=== PATIENT | female | born 1950 | race Caucasian/White ===

== ENCOUNTER 2019-04-12 06:34 | Observation (INO) | payer OTHER, SELFPAY ==
[2019-04-12] VITALS (22 sets, daily range): BP systolic 102–165; BP diastolic 53–92; PULSE 80–108; RESP 16–24; TEMP 35.7–36.8; O2SAT 93–98; BMI 22.0
--- NOTE | ~2019-04-12 | XR_ITS ---
EXAMINATION: XR chest 1V portable INDICATION: Shortness of breath TECHNIQUE: Portable AP chest at 0733 hours COMPARISON: 10/10/2018 FINDINGS: The lungs are hyperinflated. There are airspace opacities of the right lung base. No pleura l effusion or pneumothorax is identified. The heart size is normal. There is calcified atherosclerosi s. IMPRESSION: 1. Right basilar airspace opacities which may reflect atelectasis or pneumonia. Recommend followup ra diographs in 10-14 days after appropriate therapy to evaluate for improvement/resolution. Reviewed, dictated and finalized at location A. TREAT INSPECTOR IMPRESSION: 1. Right basilar airspace opacities which may reflect atelectasis or pneumonia. Recommend followup radiographs in 10-14 days after appropriate therapy to eval uate for improvement/resolution.
--- NOTE | ~2019-04-12 | XR_ITS ---
EXAMINATION: XR chest 2V DATE: 04/13/2019 08:46 INDICATION: Pneumonia TECHNIQUE: Frontal and lateral views of the chest are obtained COMPARISON: 04/12/2019 FINDINGS: Right basilar airspace opacity persists but has improved. The lungs are hyperinflated. Ther e is no pleural effusion or pneumothorax. The cardiomediastinal silhouette is normal. There is modera te thoracic spondylosis. Calcified mediastinal lymph nodes are consistent with old granulomatous dise ase. IMPRESSION: 1. Persistent but improved right basilar airspace opacity, consistent with resolving atelectasis or p neumonia. Reviewed, dictated and finalized at location A. NE FUEL DOCK ATTENDANT IMPRESSION: 1. Persistent but improved right basilar airspace opacity, consistent with reso lving atelectasis or pneumonia.
--- NOTE | 2019-04-12 07:18 | ECG_ITS ---
Measurements Intervals [place] Rate: 82 P: [place]: 0 QRS: 74 QRSD: 78 T: 67 QT: 347 QTc: 407 Interpretive Statements SINUS RHYTHM FREQUENT ATRIAL PREMATURE COMPLEXES INCOMPLETE RIGHT BUNDLE BRANCH BLOCK DELAYED PRECORDIAL R/S TRANSITION BASELINE ARTIFACT- I, II, III, AVR, AVL, AVF ABNORMAL ECG Electronically Signed On 04-12-2019 7:59:30 PROCESS MANAGER by Chico Roman D.O.
[2019-04-12] MEDS: LEVALBUTEROL NEB 1.25 MG/3 ML INHALATION (07:30)
[2019-04-12 07:51] LABS: Basophils Absolute Auto 0.03 K/mm3 (0.00-0.10); Basophils Percent Auto 0.3 % (0.0-1.0); Eosinophils Absolute Auto 0.12 K/mm3 (0.02-0.50); Eosinophils Percent Auto 1.2 % (1.0-6.0); Hematocrit 40.1 % (35.0-42.0); Hemoglobin 14.2 g/dL (11.7-13.8); Immature Granulocyte Absolute 0.04 K/mm3 (0.00-0.00); Immature Granulocyte Percent A 0.4 % (0.0-0.0); Lymphocytes Absolute Auto 1.97 K/mm3 (1.10-4.50); Lymphocytes Percent Auto 19.9 % (18.0-42.0); Mean Corpuscular HGB Conc 35.4 g/dL (32.0-36.0); Mean Corpuscular Hemoglobin 34.3 pg (27.0-31.0); Mean Corpuscular Volume 96.9 fL (78.0-102.0); Mean Platelet Volume 9.2 fl (9.2-11.8); Monocytes Absolute Auto 0.91 K/mm3 (0.10-0.90); Monocytes Percent Auto 9.2 % (2.0-11.0); Neutrophils Absolute Auto 6.8 K/mm3 (1.7-7.2); Platelet Count Result 204 K/mm3 (150-420); Red Blood Count 4.14 M/mm3 (4.20-5.40); White Blood Count 9.9 K/mm3 (4.8-10.8)
[2019-04-12] MEDS: methylPREDNISolone SOD SUCC 125 MG VIAL IV PUSH (08:05)
[2019-04-12 08:09] LABS: Influenza Control Valid (Valid)
[2019-04-12 08:14] LABS: D Dimer 0.33 mg/L (0.19-0.50)
[2019-04-12 08:15] LABS: Alanine Aminotransferase 17 U/L (14-59); Albumin Level 3.9 g/dL (3.4-5.0); Alkaline Phosphatase 76 U/L (46-116); Anion Gap 14.7 mmol/L (7-16); Aspartate Amino Transferase 16 U/L (15-37); Bilirubin,Total 0.3 mg/dL (0.00-1.00); Blood Urea Nitrogen 10 mg/dL (7-18); Carbon Dioxide 27 mmol/L (21-32); Chloride 97 mmol/L (98-108); Estimated CRCL calculation 70 ml/min; Estimated Glomerular Filt Rate > 60; Glucose 81 mg/dL (70-99); Osmolality Calculated 278 mOsm/kg (285-295); Potassium 3.7 mmol/L (3.5-5.1); Sodium 135 mmol/L (136-145)
[2019-04-12 08:17] LABS: Troponin I < 0.02 ng/mL (0.00-0.056)
--- NOTE | 2019-04-12 08:21 | ED.SOB ---
HPI - SOB/Dyspnea General Chief Complaint: Shortness of Breath/Dyspnea Stated Complaint: shortness of breath Time Seen by Provider: 04/12/19 07:16 Related Data Home Medications Medication Instructions Recorded Confirmed albuterol sulfate 2.5 mg INHALATION DAILY 04/12/19 04/12/19 fluticasone propionate 1 spray INTRANASAL PRN 04/12/19 04/12/19 [id number] 1 inh INHALATION DAILY 04/12/19 04/12/19 [Trelegy Ellipta] hydrochlorothiazide 12.5 mg PO DAILY 04/12/19 04/12/19 ipratropium bromide 1 ml INHALATION PRN 04/12/19 04/12/19 losartan 100 mg PO DAILY 04/12/19 04/12/19 Allergies Allergy/AdvReac Type Severity Reaction Status Date / Time Iodine and Iodide Containing AdvReac Unknown Verified 04/12/19 07:38 Produc Review of Systems Review of Systems: All systems reviewed & are unremarkable except as noted in HPI and below PMFSH Past Medical History Medical History COPD (chronic obstructive pulmonary disease) Exam Const: General: alert and ill appearing Nutritional Appearance: well nourished Orientation/consciousness: oriented x3 HENMT: Head: normal to inspection Eyes: Pupils: PERRL Neck: Neck: normal visual inspection Chest: Chest palpation & inspection: normal inspection of the chest and abnormal inspection of the chest Resp: Effort & Inspection: labored and tachypneic Auscultation: rhonchi, wheezes, breath sounds absent and diminished lung sounds Cardio: Rhythm: abnormal rhythm GI: GI Palp: Yes soft : General: Yes no CVA tenderness Back/Spine/Pelvis: Back: no CVA tenderness Skin: General skin exam: normal color Rashes: no rashes Neuro: General: oriented x3 Psych: Mental Status: mental status grossly normal Course Vital Signs Vital signs: Vital Signs Temperature 36.4 C L 04/12/19 07:05 Pulse Rate 84 04/12/19 07:05 Respiratory Rate 24 H 04/12/19 07:05 Blood Pressure 165/87 H 04/12/19 07:05 Pulse Oximetry 96 04/12/19 07:05 Temperature 36.4 C L 04/12/19 07:05 Pulse Rate 89 04/12/19 08:18 Respiratory Rate 20 04/12/19 08:18 Blood Pressure 150/84 H 04/12/19 08:18 Pulse Oximetry 98 04/12/19 08:18 MDM - SOB/Dyspnea Lab Data Attestation: I reviewed the patient's lab results. Result diagrams: 04/12/19 07:43 04/12/19 07:43 Labs: Lab Results 04/12/19 04/12/19 04/12/19 Range/Units 07:43 07:43 07:44 WBC 9.9 (4.8-10.8) K/mm3 RBC 4.14 L (4.20-5.40) M/mm3 Hgb 14.2 H (11.7-13.8) g/dL Hct 40.1 (35.0-42.0) % MCV 96.9 (78.0-102.0) fL MCH 34.3 H (27.0-31.0) pg MCHC 35.4 (32.0-36.0) g/dL RDW 12.0 (11.6-14.4) % Plt Count 204 (150-420) K/mm3 MPV 9.2 (9.2-11.8) fl Immature Gran % (Auto) 0.4 H (0.0-0.0) % Neut % (Auto) 69.0 (50.0-70.0) % Lymph % (Auto) 19.9 (18.0-42.0) % Day % (Auto) 9.2 (2.0-11.0) % Eos % (Auto) 1.2 (1.0-6.0) % Baso % (Auto) 0.3 (0.0-1.0) % Lymph # (Auto) 1.97 (1.10-4.50) K/mm3 Day # (Auto) 0.91 H (0.10-0.90) K/mm3 Eos # (Auto) 0.12 (0.02-0.50) K/mm3 Baso # (Auto) 0.03 (0.00-0.10) K/mm3 Abs Immat Gran (auto) 0.04 H (0.00-0.00) K/mm3 Absolute Neuts (auto) 6.8 (1.7-7.2) K/mm3 Absolute Nucleated RBC 0.00 (0.00-0.00) K/mm3 Nucleated RBC % 0.0 (0-0.0) % D-Dimer (0.19-0.50) mg/L Sodium 135 L (136-145) mmol/L Potassium 3.7 (3.5-5.1) mmol/L Chloride 97 L (98-108) mmol/L Carbon Dioxide 27 (21-32) mmol/L Anion Gap 14.7 (7-16) mmol/L BUN 10 (7-18) mg/dL Creatinine 0.59 (0.55-1.02) mg/dL Estim Creat Clear Calc 70 ml/min Estimated GFR > 60 (59 - ) Glucose 81 (70-99) mg/dL Calculated Osmolality 278 L (285-295) mOsm/kg Calcium 9.0 (8.5-10.1) mg/dL Total Bilirubin 0.3 (0.00-1.00) mg/dL AST 16 (15-37) U/L ALT 17 (14-59) U/L Alkaline Phosphatase 7
[2019-04-12 09:21] LABS: Base Excess ABG -0.2 mmol/L (0-2); HCO3 ABG 24.4 mmol/L (23-29); Oxygen Content ABG 19.1 %vol (16.0-22.0); Oxygen Saturation ABG 94.4 % (95-97); Oxyhemoglobin 89.3 % (94-100); PCO2 ABG 39.6 mmHg (35-45); PO2 ABG 70.6 mmHg (75-85); Total Hemoglobin 15.2 g/dL; pH ABG 7.41 (7.35-7.45)
[2019-04-12 09:22] LABS: Device NASAL CANNULA; Modified Allen's Test Pass; Site Drawn LEFT RADIAL
--- NOTE | 2019-04-12 09:27 | PC.NURSE ---
Here for observation admit for copd and pneumonia, harsh loose non productive cough, no fevers, no emesis, pain with cough right lung, no distress, oxygen from ER continues at 2L NC
[2019-04-12] MEDS: hydroCHLOROthiazide 25 MG TABLET 12.5 MG PO (09:38)
[2019-04-12] MEDS: LOSARTAN POTASSIUM 50 MG TABLET 100 MG PO (09:38)
--- NOTE | 2019-04-12 09:59 | PC.NURSE ---
Pateint report that shortness of breath is normal/baseline for her, states pain in lung from cough is not normal,
--- NOTE | 2019-04-12 10:13 | PM.IMHP ---
H&P: HPI History of Present Illness Chief complaint: shortness of breath Narrative: Stefanie Raymundo is a 69 year old female That presented to the ED Chief complaint shortness breath and right shoulder pain. patient past medical history COPD and HTN. she is currently a smoker and smokes 1 pack a day. According to patient 3 days ago while at work she started having right shoulder pain and assumed she has sprained a muscle. Patient noted that she continue working with pain in her right shoulder with movement . She did use muscle relief lotion to ease her pain. Yesterday she went to work and was unable to work. patient does have a history of pneumonia and noted that she knewthat she had pneumonia and proceeded to the ED. She continues to complain of a productive cough with clear secretions, chest congestion, shortness of breath that worsens on exertion. According to the patient while ambulating to the restroom she became extremely short of breath while on 2 L nasal cannula . Her primary care physician is Dr. Blanco in her sterile processing tech is Dr. Muñoz. She noted that she has an appoint with Dr. Muñoz next month for a repeat PFT for her COPD. She did note that she had to have more breathing treatments then normal with no improvement the last 3 days. while patient was in the ED she received Solu-Medrol, nebulizer treatment, and antibiotics. when she arrived to the ED her sats were in the 90, after treatment her sats did improve on 2 L nasal at 97%. A chest x-ray was complete and it indicated Right basilar airspace opacities which may reflect atelectasis or pneumonia. her troponins and D-dimer were negative, white count within normal limits ekg indicated SINUS RHYTHM FREQUENT ATRIAL PREMATURE COMPLEXES INCOMPLETE RIGHT BUNDLE BRANCH BLOCK. Patient is being admitted for COPD exacerbation and pneumonia. She will continue to receive antibiotics, steroids, breathing treatment and remain on telemetry. Patient denies CP, palpitation, extremity numbness, lightheadness, dizziness, constipation, diarrhea, or chills or fever. Review of Systems Constitutional: Constitutional: Denies chills, Denies fatigue, Denies fever(s) and Reports weakness Cardiovascular: Cardiovascular: Denies chest pain, Denies chest pain at rest, Denies chest pain with activity, Denies syncope and Reports other ( right shoulder pain) Respiratory: Respiratory: Reports chest congestion, Reports cough ( productive with white sputum) and Reports dyspnea Gastrointestinal: Gastrointestinal: Reports no additional gastrointestinal complaints, Denies dyspepsia, Denies diarrhea and Denies nausea Genitourinary: Genitourinary: Denies frequent urination and Denies urinary incontinence Musculoskeletal: Musculoskeletal: Reports other ( right shoulder pain) Neurologic: Reports system reviewed and no additional complaints, except as documented [facility] Family History Family History (Updated 04/12/19 @ 09:33 by Jennifer Petersen RN) Father Colon cancer Social History Social History Smoking packs per day: 1 Smoking cigarettes per day: 20.0 Smoking status: Current every day smoker Tobacco type: cigarettes Alcohol intake: current Drinks per week: 15 Substance use: never Gender identity (if verbalized by the patient): Female Spiritual care concerns: No Agree to blood products: Yes Meds Home Medications and Allergies Home Medications Medication Instructions Recorded Confirmed Type albuterol sulfate 2.5 mg INHALATION DAILY 04/12/19 04/12/19 History fluticasone propionate 1 spray INTRANASAL PRN 04/12/19 04/12/19 History uyfcnsfyrzq-abgzcbmwc-ejxcnwyz 1 inh INHALATION DAILY 04/12/19 04/12/19 History [Trelegy Ellipta] hydrochlorothiazide 12.5 mg PO DAILY 04/12/19 04/12/19 History ipratropium bromide 1 ml INHALATION PRN 04/12/19 04/12/19 History losartan 100 mg PO DAILY 04/12/19 04/12/19 History
[2019-04-12] MEDS: BENZONATATE 100 MG CAPSULE 200 MG PO ×2 (10:42→14:53)
--- NOTE | 2019-04-12 11:30 | PC.NURSE ---
Resting with HOB elevated no SOB at thsi time, no pain when at rest, only when coughing,
[2019-04-12] MEDS: ENOXAPARIN 40 MG/0.4 ML SYRINGE SUB-Q (11:53)
--- NOTE | 2019-04-12 12:15 | PC.NURSE ---
Eating lunch, no concerns voiced, continues to have pain with cough and feels better with oxygen on, doesn't wear oxygen at home
[2019-04-12] MEDS: IPRATROPIUM 0.5 MG/ALBUTEROL SULFATE 2.5 MG AMPUL.NEB 3 ML INHALATION ×2 (12:18→18:10)
--- NOTE | 2019-04-12 14:07 | PC.NURSE ---
Sleeping, no distress, oxygen on at 2L NC at this time, telemetry sinus arrythmia
[2019-04-12] MEDS: methylPREDNISolone SOD SUCC 125 MG VIAL 80 MG IV PUSH ×2 (14:53→21:08)
--- NOTE | 2019-04-12 15:30 | PC.NURSE ---
States feeling much better;Feels more rested; Oxygen in place. Skin pink, respirations easy, unlabored, regular.
--- NOTE | 2019-04-12 15:50 | PC.NURSE ---
States needs chips and soda to decrease need for cigarettes. Notified Emma in dietary of request for chips. Given Pepsi and cup of ice.
--- NOTE | 2019-04-12 16:00 | PC.NURSE ---
Patient lying in bed with Oxygen at 2L per n.c. in place. No shortness of breath at rest. Conversational dyspnea noted.
--- NOTE | 2019-04-12 19:23 | PC.NURSE ---
Patient ambulating in room without oxygen in place: Heart Rate up to 120s, then down to 104 after sitting on bed for 1-2 minutes. R. 20; Pox: 93% on room air. Oxygen at 1 L per n.c. resumed.
[2019-04-12] MEDS: ACETAMINOPHEN 500 MG TABLET 1000 MG PO (21:06)
--- NOTE | 2019-04-12 21:08 | PC.NURSE ---
Benadryl 25mg po given for c/o insomnia; Tylenol 1000mg po given for c/o headache. See pain assessment. Complains pain to right chest wall just under right shoulder blade, states much better than when I came in but is coming back. Exertional dyspnea continues. Mild conversational dyspnea present with normal conversation.
--- NOTE | 2019-04-12 21:21 | PC.NURSE ---
Emelia Baird, network support specialist nurse informed of need to change Tessalon Perles to Q 8 hours per patient request.
--- NOTE | 2019-04-12 23:44 | PC.NURSE ---
Patient resting in bed with HOB flat, positioning consistent with baseline. O2 @ 1L per nasal cannula
[2019-04-13] VITALS (8 sets, daily range): BP systolic 128–137; BP diastolic 69–76; PULSE 84–106; RESP 16–20; TEMP 35.8–36.6; O2SAT 91–98
[2019-04-13] MEDS: IPRATROPIUM 0.5 MG/ALBUTEROL SULFATE 2.5 MG AMPUL.NEB 3 ML INHALATION ×2 (00:30→05:36)
--- NOTE | 2019-04-13 01:40 | PC.NURSE ---
Patient in bed resting quietly with O2 @1L per nasal cannula. Sinus rhythm per quality assurance monitor chassis
--- NOTE | 2019-04-13 02:40 | PC.NURSE ---
Patient resting quietly in bed. Sinus rhythm per court recording monitor. O2 @1L per nasla cannula.
--- NOTE | 2019-04-13 03:40 | PC.NURSE ---
Patient in bed resting quietly, O2 @ 1L per nasal cannula. Dry cough persists. Sinus rhythm per telemetry
--- NOTE | 2019-04-13 04:40 | PC.NURSE ---
Patient in bed resting comfortably, O2 @ 1L per nasal cannula. Afebrile. Sinus rhythm per ekg monitor tech.
[2019-04-13 05:08] LABS: Hematocrit 39.6 % (35.0-42.0); Mean Corpuscular HGB Conc 35.4 g/dL (32.0-36.0); Mean Corpuscular Hemoglobin 34.3 pg (27.0-31.0); Mean Corpuscular Volume 97.1 fL (78.0-102.0); Mean Platelet Volume 9.2 fl (9.2-11.8); Platelet Count Result 204 K/mm3 (150-420); Red Blood Count 4.08 M/mm3 (4.20-5.40); Red Cell Distribution Width 11.9 % (11.6-14.4); White Blood Count 12.7 K/mm3 (4.8-10.8)
[2019-04-13 05:28] LABS: Alanine Aminotransferase 16 U/L (14-59); Albumin Level 3.5 g/dL (3.4-5.0); Alkaline Phosphatase 72 U/L (46-116); Anion Gap 10.8 mmol/L (7-16); Aspartate Amino Transferase 13 U/L (15-37); Bilirubin,Total 0.3 mg/dL (0.00-1.00); Blood Urea Nitrogen 12 mg/dL (7-18); Calcium 9.1 mg/dL (8.5-10.1); Carbon Dioxide 30 mmol/L (21-32); Chloride 97 mmol/L (98-108); Estimated CRCL calculation 62 ml/min; Estimated Glomerular Filt Rate > 60; Glucose 190 mg/dL (70-99); Osmolality Calculated 282 mOsm/kg (285-295); Potassium 3.8 mmol/L (3.5-5.1); Sodium 134 mmol/L (136-145); Total Protein 6.7 g/dL (6.4-8.2)
--- NOTE | 2019-04-13 05:40 | PC.NURSE ---
Patient sitting up in bed, O2 @ 1L per nasal cannula. Denies SOB at rest.
[2019-04-13] MEDS: methylPREDNISolone SOD SUCC 125 MG VIAL 80 MG IV PUSH (05:52)
--- NOTE | 2019-04-13 06:40 | PC.NURSE ---
Patient sitting up in bed, remains on O2 @ 1L per nasal cannula. Sinus rhythm per cardiac monitor technician.
--- NOTE | 2019-04-13 07:10 | PC.NURSE ---
Oxygen removed at this time, current saturation 94%
--- NOTE | 2019-04-13 07:26 | PC.NURSE ---
Oxygen remains off at this time, saturation noted to be 91-92% on room air, no feeling of distress, no evidence of distress noted
--- NOTE | 2019-04-13 08:33 | PC.NURSE ---
To imaging for CXR via wheel chair
--- NOTE | 2019-04-13 08:45 | PC.NURSE ---
Returned from imaging via wheel chair, cardio here to do 6 minute walk
[2019-04-13] MEDS: hydroCHLOROthiazide 25 MG TABLET 12.5 MG PO (09:05)
[2019-04-13] MEDS: LOSARTAN POTASSIUM 50 MG TABLET 100 MG PO (09:06)
[2019-04-13] MEDS: BENZONATATE 100 MG CAPSULE 200 MG PO (09:06)
--- NOTE | 2019-04-13 09:06 | HOMEO2EVAL ---
Home Oxygen Evaluation RC: Home Oxygen (O2) Evaluation Start: 04/12/19 11:29 Freq: ONCE Status: Active Protocol: RPE Activity Type Activity Date Activity User E-Sign Co-Sign Detail Recorded Client Recorded Date Recorded By Document 04/13/19 08:50 SJCorrine [id number] 04/13/19 09:06 SJB Document 04/13/19 08:53 SJB [id number] 04/13/19 09:06 SJB 04/13/19 04/13/19 08:50 08:53 Home O2 Evaluation Test Phase Resting Exercise Oxygen Delivery Room Air Pulse Rate (60-100 beats/min) 91 Activity Tolerance Excellent Rating of Perceived Dyspnea (PD) +1 Mild, Noticeable to the Participant but Not to an Observer Rate of Perceived Exertion (PE) 9 Very light Ambulation Distance (feet) 850 Home Oxygen Evaluation Comments Pt walked approx 800 ft on room air. Osman very walk, talking the whole time and using PLB. Sp02s stayed WNL of 94 to 91 % and heart rate ranging from 87 to 113. Treatment Charges O2 Evaluation
--- NOTE | 2019-04-13 09:09 | HOMEO2EVAL ---
Home Oxygen Evaluation RC: Home Oxygen (O2) Evaluation Start: 04/12/19 11:29 Freq: ONCE Status: Active Protocol: RPE Activity Type Activity Date Activity User E-Sign Co-Sign Detail Recorded Client Recorded Date Recorded By Document 04/13/19 08:50 SJCorrine [id number] 04/13/19 09:06 SJB Document 04/13/19 08:53 SJB [id number] 04/13/19 09:06 SJB 04/13/19 04/13/19 08:50 08:53 Home O2 Evaluation Test Phase Resting Exercise Oxygen Delivery Room Air Room Air Oxygen Flow Rate (L/min) 0 Pulse Rate (60-100 beats/min) 91 Activity Tolerance Excellent Rating of Perceived Dyspnea (PD) +1 Mild, Noticeable to the Participant but Not to an Observer Rate of Perceived Exertion (PE) 9 Very light Ambulation Distance (feet) 850 Home Oxygen Evaluation Comments Pt walked approx 800 ft on room air. Osman very walk, talking the whole time and using PLB. Sp02s stayed WNL of 94 to 91 % and heart rate ranging from 87 to 113. Treatment Charges O2 Evaluation
--- NOTE | 2019-04-13 10:20 | PM.DS ---
DS: Diagnosis Admitting Diagnosis Admitting Diagnosis: Pneumonia, unspecified organism Discharge Diagnosis (1) Community acquired pneumonia: Qualifiers: Laterality: right Lung location: lower lobe of lung Qualified Code(s): J18.9 - Pneumonia, unspecified organism Code(s): J18.9 - Pneumonia, unspecified organism Status: Acute Assessment and Plan: -chest x-ray indicate . Right basilar airspace opacities which may reflect atelectasis or pneumonia. Recommend followup radiographs in 10-14 days after appropriate therapy to evaluate for improvement/resolution. repeat cxr with improvement - will continue home nebulizers and inhalers - home O2 evaluation completed no home to oxygen needed at this time -will discharged on Augmentin and azithromycin and prednisone - WBC trending downward near normal at discharge - discharge with decongestants and cough suppressant medication -blood cultures pending (2) Acute exacerbation of chronic obstructive airways disease: Code(s): J44.1 - Chronic obstructive pulmonary disease with (acute) exacerbation Status: Acute Assessment and Plan: -chest x-ray indicate . Right basilar airspace opacities which may reflect atelectasis or pneumonia. Recommend followup radiographs in 10-14 days after appropriate therapy to evaluate for improvement/resolution. repeat x-ray with improvement -chest x-ray indicate . Right basilar airspace opacities which may reflect atelectasis or pneumonia. Recommend followup radiographs in 10-14 days after appropriate therapy to evaluate for improvement/resolution. repeat cxr with improvement - will continue home nebulizers and inhalers - home O2 evaluation completed no home to oxygen needed at this time -will discharged on Augmentin and azithromycin and prednisone - WBC trending downward near normal at discharge - discharge with decongestants and cough suppressant medication -blood cultures pending (3) Hypertension: Code(s): I10 - Essential (primary) hypertension Status: Chronic Assessment and Plan: controlled - continue hydrochlorothiazide and losartan. (4) Nicotine dependence: Code(s): F17.200 - Nicotine dependence, unspecified, uncomplicated Status: Chronic Assessment and Plan: -patient educated on smoking cessation - patient refused nicotine patch DS: Summary Hospital Course Hospital Course: refer to H&P. patient being discharged with CAP. her condition has improved ,repeat chest x-ray also shows improvement. Patient was discharged home with Augmentin and azithromycin, prednisone tapered off, Mucinex and Tessalon Perles. She will follow up with her PCP within 1 week. Patient able to tolerate all meals , slept well and ambulate at baseline. Patient denies SOB, CP, palpitation, extremity numbness, lightheadness, dizziness, constipation, diarrhea, or chills or fever. Patient agree that they are ready for discharge and discharge plan. Time Spent with Patient Time attestation: Total time spent providing and/or coordinating discharge services:60 Exam Const: General: cooperative, acute distress ( labored breathing) mild and respiratory and in distress ( labor breathing) Nutritional Appearance: well nourished Orientation/consciousness: oriented x3 Resp: Auscultation: diminished lung sounds Cardio: Jugular venous distension: no JVD Rate: regular rate Rhythm: regular rhythm Peripheral pulses: pulses 2+ throughout GI: Inspection: normal to inspection Auscultation: normal bowel sounds Neuro: General: oriented x3 DS: Data Data Completed and Pending Labs on day of discharge: Labs from last 24 hours 04/13/19 04/13/19 05:02 05:02 WBC 12.7 H RBC 4.08 L Hgb 14.0 H Hct 39.6 MCV 97.1 MCH 34.3 H MCHC 35.4 RDW 11.9 Plt Count 204 MPV 9.2 Sodium 134 L Potassium 3.8 Chloride 97 L Carbon Dioxide 30 Anion Gap 10.8 BUN 12 Creatinine 0.67
--- NOTE | 2019-04-13 10:52 | PC.NURSE ---
on room air, doing well, no distress, talking on the phone
--- NOTE | 2019-04-13 11:20 | PCDIET ---
Discharged to home via wheel chair, tolerated well, denies questions, all personal items sent home with patient
--- NOTE | 2019-04-20 10:19 | PC.NURSE ---
Discharge Call Back [phone] no answer left a message.
== END 2019-04-13 11:20 | disposition home or self-care (01) ==
LOC: CHSED 08:25 → CHS2ND 08:56
PROVIDERS: Nurse Practitioner; Admitting Provider Emergency Medicine; Emergency Provider Emergency Medicine; PCP Family Medicine; Visit Provider Emergency Medicine
DX: J44.1 Chronic obstructive pulmonary disease with (acute) exacerbation (principal); J18.9 Pneumonia, unspecified organism; I10 Essential (primary) hypertension; F17.210 Nicotine dependence, cigarettes, uncomplicated
CPT/HCPCS: 36415; 36600; 71045; 71046; 80053; 82805; 84484; 85025; 85027; 85380; 87040; 87804; 93005; 94618; 94640; 96365; 96367; 96372; 96375; 96376; 99283; 99285; A9270; G0378; J0456; J0696; J1650; J2930

== ENCOUNTER 2019-06-24 21:08 | Emergency (ER) | payer OTHER, SELFPAY ==
--- NOTE | ~2019-06-24 | XR_ITS ---
EXAMINATION: XR chest 2V DATE: 06/24/2019 22:06 INDICATION: Dyspnea TECHNIQUE: frontal and lateral views of the chest were obtained. COMPARISON: Chest radiograph dated 04/13/[address] dated 09/23/2017 FINDINGS: Hyperexpansion of lungs consistent with emphysema as seen on CT dated 09/23/2017. Mild right apical pl eural-parenchymal scarring. Additional mild left basilar opacities and favor atelectasis over pneumon ia. No pulmonary edema, pleural effusion or pneumothorax. The cardiomediastinal silhouette is normal. Calcified left hilar and mediastinal lymph nodes consistent with old granulomatous disease. Mild S-s haped curvature of the thoracolumbar spine with moderate spondylosis. IMPRESSION: 1. Mild left basilar opacities and favor atelectasis over pneumonia. 2. Emphysema. Reviewed, dictated and finalized at location A.
--- NOTE | 2019-06-24 21:18 | ED.SOB ---
HPI - SOB/Dyspnea General Chief Complaint: Shortness of Breath/Dyspnea Stated Complaint: fever,chest tightness, sore throat, body aches Time Seen by Provider: 06/24/19 21:19 Source: patient and RN notes reviewed Mode of arrival: ambulatory Limitations: no limitations History of Present Illness HPI Narrative: 69-year-old female presents for shortness of breath. She said she had a cough last evening. This morning she coughed up some thick white phlegm. None since only a dry cough. She says that she had a temperature but when asked her reading was 99.1. She has a grandchild who was exposed to another sick child. She has been having some body aches. She has a history of pneumonia and she said she did not wanted to get that far. She complains of some chest tightness as well. After she ate she had some diarrhea and then when she tried to eat some applesauce she had nausea and vomited once. MD elicited complaint: shortness of breath and cough Pertinent past history: COPD and pneumonia Onset (ago): day(s) (1) Timing: intermittent Severity: moderate Exacerbating factors: lying flat and coughing Relieving factors: nothing Known history of: COPD Associated symptoms: chest pain (tightness) and sputum production Treatment prior to arrival: none Related Data Home oxygen amount: none Home Medications Medication Instructions Recorded Confirmed fluticasone propionate 1 spray INTRANASAL PRN 04/12/19 06/24/19 hydrochlorothiazide 12.5 mg PO DAILY 04/12/19 06/24/19 losartan 100 mg PO DAILY 04/12/19 06/24/19 Allergies Allergy/AdvReac Type Severity Reaction Status Date / Time Iodine and Iodide Containing AdvReac Unknown Verified 04/12/19 07:38 Produc Review of Systems Constitutional: Constitutional: Reports chills Eyes: Eyes: Reports no additional eye complaints Cardiovascular: Cardiovascular: Denies rapid heart rate and Denies radiating jaw, neck or arm pain Respiratory: Respiratory: Reports chest congestion Gastrointestinal: Gastrointestinal: Reports diarrhea, Reports nausea and Reports vomiting Genitourinary: Genitourinary: Reports no additional female genitourinary complaints Musculoskeletal: Musculoskeletal: Reports no additional musculoskeletal complaints Neurologic: Reports system reviewed and no additional complaints, except as documented Psychiatric: Psychiatric: Reports no additional psychiatric complaints Endocrine: Endocrine: Reports no additional endocrine complaints Hematologic/Lymphatic: Hematologic/Lymphatic: Reports no additional hematologic/lymphatic complaints Allergic/Immunologic: Allergic/Immunologic: Reports no additional allergic/immunologic complaints PMFSH Past Medical History Medical History (Updated 06/24/19 @ 22:24 by Roger Chester MD) COPD (chronic obstructive pulmonary disease) Hypertension Surgical History Surgical History (Updated 06/24/19 @ 21:43 by Roger Chester MD) History of appendectomy History of colon surgery Family History Family History Father Colon cancer Social History Social History Smoking packs per day: 1 Smoking cigarettes per day: 20.0 Smoking status: Current every day smoker Tobacco type: cigarettes Alcohol intake: current Drinks per week: 15 Substance use: never Gender identity (if verbalized by the patient): Female Spiritual care concerns: No Agree to blood products: Yes Exam Const: General: healthy appearing, no acute distress and alert Nutritional Appearance: well nourished and thin Orientation/consciousness: patient oriented x3 HENMT: Head: normal to inspection Ears: external ears normal General nose exam: Normal external nose present Face and sinus: normal facial exam Mouth: Yes moist mucous membranes Throat: posterior oropharynx normal and uvula midline Eyes: Conjunctivae: conjunctivae normal Pupils: E
[2019-06-24 21:29] VITALS: BP 174/93; PULSE 107; RESP 20; TEMP 36.9; O2SAT 96
--- NOTE | 2019-06-24 21:35 | ECG_ITS ---
Measurements Intervals [place] Rate: 84 P: [place]: 0 QRS: 47 QRSD: 76 T: 60 QT: 370 QTc: 437 Interpretive Statements SINUS RHYTHM ATRIAL PREMATURE COMPLEXES INCOMPLETE RIGHT BUNDLE BRANCH BLOCK DELAYED PRECORDIAL R/S TRANSITION BASELINE ARTIFACT- I, II, III, AVR, AVL, AVF, V1-V6 BORDERLINE ECG Electronically Signed On 06-25-2019 7:25:34 CDT by Chico Roman D.O.
[2019-06-24 21:42] LABS: Basophils Absolute Auto 0.04 K/mm3 (0.00-0.10); Basophils Percent Auto 0.2 % (0.0-1.0); Eosinophils Absolute Auto 0.06 K/mm3 (0.02-0.50); Eosinophils Percent Auto 0.3 % (1.0-6.0); Hematocrit 42.3 % (35.0-42.0); Hemoglobin 14.7 g/dL (11.7-13.8); Immature Granulocyte Absolute 0.12 K/mm3 (0.00-0.00); Immature Granulocyte Percent A 0.7 % (0.0-0.0); Lymphocytes Absolute Auto 1.88 K/mm3 (1.10-4.50); Lymphocytes Percent Auto 10.7 % (18.0-42.0); Mean Corpuscular HGB Conc 34.8 g/dL (32.0-36.0); Mean Corpuscular Hemoglobin 33.2 pg (27.0-31.0); Mean Corpuscular Volume 95.5 fL (78.0-102.0); Mean Platelet Volume 9.8 fl (9.2-11.8); Monocytes Absolute Auto 1.13 K/mm3 (0.10-0.90); Monocytes Percent Auto 6.5 % (2.0-11.0); Neutrophils Absolute Auto 14.3 K/mm3 (1.7-7.2); Neutrophils Percent Auto 81.6 % (50.0-70.0); Platelet Count Result 188 K/mm3 (150-420); Red Blood Count 4.43 M/mm3 (4.20-5.40); Red Cell Distribution Width 12.9 % (11.6-14.4); White Blood Count 17.5 K/mm3 (4.8-10.8)
[2019-06-24 21:45] VITALS: PULSE 94; RESP 18
[2019-06-24] MEDS: IPRATROPIUM 0.5 MG/ALBUTEROL SULFATE 2.5 MG AMPUL.NEB 3 ML INHALATION (21:48)
[2019-06-24 21:57] LABS: Influenza Control Valid (Valid)
[2019-06-24 22:00] VITALS: PULSE 94; RESP 20
[2019-06-24 22:03] LABS: BNP 146 pg/mL (0-100)
[2019-06-24 22:04] LABS: Lactic Acid Reflex 1.3 mmol/L (0.4-2.0)
[2019-06-24 22:07] LABS: Troponin I < 0.02 ng/mL (0.00-0.056)
[2019-06-24 22:07] LABS: Alanine Aminotransferase 14 U/L (14-59); Albumin Level 3.8 g/dL (3.4-5.0); Alkaline Phosphatase 81 U/L (46-116); Anion Gap 10.6 mmol/L (7-16); Aspartate Amino Transferase 15 U/L (15-37); Bilirubin,Total 0.9 mg/dL (0.00-1.00); Blood Urea Nitrogen 6 mg/dL (7-18); Calcium 9.7 mg/dL (8.5-10.1); Carbon Dioxide 30 mmol/L (21-32); Chloride 97 mmol/L (98-108); Estimated Glomerular Filt Rate > 60; Glucose 107 mg/dL (70-99); Magnesium 1.5 mg/dL (1.8-2.4); Osmolality Calculated 275 mOsm/kg (285-295); Potassium 3.6 mmol/L (3.5-5.1); Sodium 134 mmol/L (136-145); Total Protein 7.2 g/dL (6.4-8.2)
[2019-06-24 22:15] LABS: CRP 19.9 mg/dL (0.0-0.9)
[2019-06-24] MEDS: AZITHROMYCIN 250 MG TABLET 500 MG PO (22:29)
[2019-06-24] MEDS: methylPREDNISolone SOD SUCC 125 MG VIAL IM (22:31)
[2019-06-24 22:38] VITALS: BP 163/88; PULSE 98; O2SAT 96
== END 2019-06-24 22:42 | disposition home or self-care (01) ==
PROVIDERS: Emergency Provider Emergency Medicine; PCP Family Medicine
DX: J44.1 Chronic obstructive pulmonary disease with (acute) exacerbation (principal)
CPT/HCPCS: 36415; 71046; 80053; 83605; 83735; 83880; 84484; 85025; 86140; 87040; 87804; 93005; 94640; 96372; 99283; 99284; A9270; J2930

== ENCOUNTER 2019-12-19 00:45 | Outpatient (CLI) | payer OTHER, SELFPAY ==
[2019-12-19 18:28] LABS: SARS-CoV-2 RNA PCR Negative
== END 2019-12-19 00:46 | disposition home or self-care (01) ==
LOC: ANHCOVIDDT 00:45
PROVIDERS: PCP Family Medicine; Visit Provider Surgery
DX: Z01.812 Encounter for preprocedural laboratory examination (principal); Z20.828 Contact with and (suspected) exposure to other viral communicable diseases
CPT/HCPCS: 87635; C9803; U0003

== ENCOUNTER 2019-12-21 04:10 | Day surgery (SDC) | payer OTHER, SELFPAY ==
[2019-12-12 10:50] VITALS: BMI 22.0
[2019-12-21] MEDS: LACTATED RINGERS 1,000 ML 150 ML IV CONT (12:24)
[2019-12-21 12:37] VITALS: BMI 23.1
--- NOTE | 2019-12-21 13:09 | WPDANESEPPF ---
Anes - Initial Pre Proc Eval Procedure: Operation Date: 12/21/19 12:00 Proposed Procedures p Screening Colonoscopy - Aldo Ramos DO Date/Time: 12/21/19 13:09 Surgeon: Aldo Ramos DO Pre Op Diagnosis: hx of polyps Patient Data Age: 69 Gender: F Height: 5 ft 5 in Weight: 63 kg Allergies Allergy/AdvReac Type Severity Reaction Status Date / Time Iodine and Iodide Containing AdvReac Unknown Verified 12/21/19 12:32 Produc Home Medications Medication Instructions Recorded Confirmed Type fluticasone propionate 1 spray INTRANASAL PRN 04/12/19 12/21/19 History losartan 100 mg PO DAILY 04/12/19 12/21/19 History fexofenadine [Allergy Relief 60 mg PO Q12H 12/12/19 12/21/19 History (fexofenadine)] ipratropium bromide 1 ml CONTINUOUS NEBULIZATION QID 12/12/19 12/21/19 History Patient hx anesthesia problems: none Family hx anesthesia problems: none PMFSH Past Medical History Medical History COPD (chronic obstructive pulmonary disease) Hypertension Surgical History Surgical History (System 06/29/19 @ 08:50 by Yesica Pool) History of appendectomy History of colon surgery Social History Social History (System 06/29/19 @ 08:50 by Yesica Pool) Smoking packs per day: 1 Smoking cigarettes per day: 20.0 Years smoked: 50 Smoking pack-years: 50.00 Smoking status: Current every day smoker Tobacco type: cigarettes Alcohol intake: current Drinks per week: 28 Alcohol use details: 4 Beers/Night Substance use: never Gender identity (if verbalized by the patient): Female Spiritual care concerns: No Agree to blood products: Yes Anes - Eval Final PreProcedure Day of Procedure 12/21/19 13:09 Patient weight: normal Heart: regular rate and rhythm Lungs: clear to auscultation Airway: Mallampati scale class II Neurological: alert and oriented Last oral intake: >/= 8 hours ASA classification: II Emergent: no Anesthetic plan: proceed Anesthesia type and monitoring: general GIVS and standard monitoring Informed Consent: The patient's anesthetic plan and its attendant risks and benefits were discussed with the patient/family/POA. Questions were solicited and answers provided to the satisfaction of the patient/family/POA.
--- NOTE | 2019-12-21 14:02 | PM.IMHP ---
H&P: HPI History of Present Illness Date/Time: 12/21/19 14:02 Chief complaint: hx of polyps Narrative: Stefanie Raymundo is a 69 year old female who presents for colonoscopy. She last had one 5 years ago and had polyps removed. She also has fam hx of colon cancer in her father. She denies hematochezia or melena. Review of Systems Review of Systems: All systems reviewed & are unremarkable except as noted in HPI and below Constitutional: Constitutional: Denies chills, Denies fever(s), Denies headache(s) and Denies weight loss Eyes: Eyes: Denies change in vision ENT: Denies dizziness, Denies headache(s), Denies neck mass and Denies throat swelling Cardiovascular: Cardiovascular: Denies chest pain, Denies lightheadedness and Denies dyspnea Respiratory: Respiratory: Denies cough, Denies dyspnea and Denies wheezing Gastrointestinal: Gastrointestinal: Denies abdominal pain, Denies change in bowel habits, Denies nausea and Denies vomiting Genitourinary: Genitourinary: Denies hematuria and Denies dysuria Musculoskeletal: Musculoskeletal: Reports as per HPI Integumentary/Breasts: Skin/Breast: Reports as per HPI Neurologic: Denies dizziness and Denies headache(s) Allergic/Immunologic: Allergic/Immunologic: Denies throat swelling and Denies wheezing PMFSH Past Medical History Medical History COPD (chronic obstructive pulmonary disease) Hypertension Surgical History Surgical History History of appendectomy History of colon surgery Family History Family History Father Colon cancer Social History Social History Smoking packs per day: 1 Smoking cigarettes per day: 20.0 Years smoked: 50 Smoking pack-years: 50.00 Smoking status: Current every day smoker Tobacco type: cigarettes Alcohol intake: current Drinks per week: 28 Alcohol use details: 4 Beers/Night Substance use: never Gender identity (if verbalized by the patient): Female Spiritual care concerns: No Agree to blood products: Yes Meds Home Medications and Allergies Home Medications Medication Instructions Recorded Confirmed Type fluticasone propionate 1 spray INTRANASAL PRN 04/12/19 12/21/19 History losartan 100 mg PO DAILY 04/12/19 12/21/19 History fexofenadine [Allergy Relief 60 mg PO Q12H 12/12/19 12/21/19 History (fexofenadine)] ipratropium bromide 1 ml CONTINUOUS NEBULIZATION QID 12/12/19 12/21/19 History Allergies Allergy/AdvReac Type Severity Reaction Status Date / Time Iodine and Iodide Containing AdvReac Unknown Verified 12/21/19 12:32 Produc Exam Const: General: no acute distress and alert Orientation/consciousness: patient oriented x3 HENMT: Head: normocephalic and atraumatic Ears: hearing grossly normal bilaterally General nose exam: Normal nares present Mouth: Yes Normal oral and palatal mucosa present Eyes: Periorbital: periorbital findings normal Sclera: sclerae normal EOM: EOMs intact bilaterally Neck: Neck: normal visual inspection, no lymphadenopathy and trachea midline Chest: Chest palpation & inspection: normal inspection of the chest Resp: Effort & Inspection: normal respiratory effort Auscultation: clear to auscultation bilaterally Cardio: Jugular venous distension: no JVD Rate: regular rate Rhythm: regular rhythm Heart sounds: S1 normal heart sound present and S2 normal heart sound present Peripheral pulses: Peripheral pulses 2+ throughout GI: Inspection: normal to inspection GI Palp: Yes Soft to palpation, No Tenderness to palpation present (GI), No Guarding due to palpation present (GI) and No Rebound tenderness present Percussion: Yes normal to percussion Auscultation: normal bowel sounds : General: Yes no CVA tenderness Back/Spine/P
[2019-12-21 14:24] VITALS: BP 109/71; PULSE 84; RESP 26; O2SAT 98
[2019-12-21 14:34] VITALS: BP 122/65; PULSE 84; RESP 21; O2SAT 98
[2019-12-21 14:44] VITALS: BP 160/93; PULSE 84; RESP 21; O2SAT 99
== END 2019-12-21 15:00 | disposition home or self-care (01) ==
PROVIDERS: PCP Family Medicine; Visit Provider Surgery
PROC: 0DJD8ZZ Inspection of Lower Intestinal Tract, Via Natural or Artificial Opening Endoscopic (ICD-10-PCS; CPT 45378; principal; 2019-12-21 12:00)
DX: Z12.11 Encounter for screening for malignant neoplasm of colon (principal); K57.30 Diverticulosis of large intestine without perforation or abscess without bleeding; Z86.010 Personal history of colon polyps; Z98.0 Intestinal bypass and anastomosis status; Z80.0 Family history of malignant neoplasm of digestive organs; J44.9 Chronic obstructive pulmonary disease, unspecified; F17.210 Nicotine dependence, cigarettes, uncomplicated
CPT/HCPCS: 45378; J2704; J7120

== ENCOUNTER 2020-04-18 15:19 | Outpatient (CLI) | payer OTHER, SELFPAY ==
--- NOTE | ~2020-04-18 | XR_ITS ---
EXAMINATION: XR abdomen obstructive series DATE: 04/18/2020 15:46 INDICATION: Intermittent constipation and diarrhea. Mid to lower abdominal pain. TECHNIQUE: Frontal supine and upright views of the abdomen were obtained. COMPARISON: None. FINDINGS: Anastomotic suture line in the right lower quadrant. There is moderate amount of gas scattered throug hout multiple loops of nondilated small bowel and colon. Small amount of stool in the colon. No free intraperitoneal gas. Visualized lung bases are clear. Heart size is normal. Mild lumbar levoscolios is with moderate spondylosis. IMPRESSION: 1. No free intraperitoneal gas or dilated gas-filled loops of bowel to suggest obstruction. Reviewed, dictated and finalized at location A. RIOR DESIGN PRINCIPAL
== END 2020-04-18 15:20 | disposition home or self-care (01) ==
LOC: CHSIMG 15:21
PROVIDERS: PCP Family Medicine; Visit Provider Family Medicine
DX: R10.84 Generalized abdominal pain (principal)
CPT/HCPCS: 74019

== ENCOUNTER 2020-11-03 16:49 | Emergency (ER) | payer OTHER, SELFPAY ==
--- NOTE | ~2020-11-03 | CT_ITS ---
EXAMINATION: CT abdomen pelvis wo con DATE: 11/03/2020 23:38 INDICATION: Epigastric abdominal pain. TECHNIQUE: Computed tomography (CT) of the abdomen and pelvis was performed without intravenous contr ast. Automated exposure control and iterative reconstruction technique were employed. The dose-length product was 236.04 mGy-cm. COMPARISON: CT abdomen and pelvis 09/09/2018 FINDINGS: The visualized portions of the lung bases demonstrate mild atelectasis. There is a pneumato bryce in right lower lobe. No pleural effusion. The heart size is normal. No pericardial effusion. Sammy cifications in the liver and spleen are consistent with old granulomatous disease. The gallbladder, p ancreas, adrenal glands, and right kidney are normal. There is a 1.5 cm mass with fat in left kidney, consistent with an angiomyolipoma. There is no urolithiasis. There is diverticulosis of the colon wi thout evidence of diverticulitis. There are changes of ileocolic resection and anastomosis. There are no pathologically enlarged lymph nodes. There is no free intraperitoneal fluid. There is prominent f at in the inguinal canals that may be small hernias. There is lumbar levoscoliosis and severe spondyl osis. IMPRESSION: 1. No specific etiology for the patient's symptoms. Reviewed, dictated and finalized at location A.
--- NOTE | 2020-11-03 17:02 | ECG_ITS ---
Measurements Intervals [place] Rate: 87 P: 78 ID: 148 QRS: 30 QRSD: 76 T: 56 QT: 350 QTc: 421 Interpretive Statements SINUS RHYTHM MINIMAL Q WAVES- INFERIOR LEADS BASELINE ARTIFACT- V4 BORDERLINE ECG Electronically Signed On 11-03-2020 21:07:08 CDT by [place] Roman D.O.
[2020-11-03 17:03] VITALS: BP 185/97; PULSE 94; RESP 14; TEMP 37; O2SAT 96
[2020-11-03 17:36] LABS: Basophils Percent Auto 0.5 % (0.2-1.2); Eosinophils Absolute Auto 0.4 K/mm3 (0-0.3); Hematocrit 42.5 % (37.0-47.0); Hemoglobin 14.6 g/dL (12.0-15.0); Immature Granulocyte Absolute 0.02 K/mm3 (0.00-0.031); Immature Granulocyte Percent A 0.3 % (0-0.5); Lymphocytes Percent Auto 36.6 % (18.3-44.2); Mean Corpuscular HGB Conc 34.4 g/dl (32-36); Mean Corpuscular Hemoglobin 33.3 pg (26-34); Mean Corpuscular Volume 96.8 fl (80-100); Mean Platelet Volume 9.5 fl (7.4-10.4); Monocytes Absolute Auto 0.9 K/mm3 (0.1-0.6); Monocytes Percent Auto 11.6 % (2.6-8.5); Neutrophils Absolute Auto 3.5 K/mm3 (1.3-6.7); Platelet Count Result 199 k/mm3 (150-375); Red Blood Count 4.39 M/mm3 (4.2-5.4); Red Cell Distribution Width 12.8 % (11.5-14.5); White Blood Count 7.7 K/mm3 (4.5-10.0)
[2020-11-03 17:41] LABS: Add Urine Microscopic? NO; Appearance Urine Clear (Clear); Bilirubin Urine Negative (Negative); Blood Urine Negative (Negative); Color Urine Straw (Yellow); Glucose Urine UA Negative (Negative); Ketones Urine Negative (Negative); Leukocyte Esterase Ur Negative LEU/UL (Negative); Nitrate Urine Negative (Negative); Protein Urine Negative (Negative); Urobilinogen Urine Negative mg/dL (<2.0)
[2020-11-03 17:53] LABS: Specific Grav Ur 1.004 (1.001-1.035)
[2020-11-03 18:12] LABS: Alanine Aminotransferase 18 U/L (4-35); Albumin Level 4.2 g/dL (3.5-5.1); Alkaline Phosphatase 89 U/L (38-126); Anion Gap 7 mmol/L (8-16); Aspartate Amino Transferase 41 U/L (14-36); Bilirubin,Total 0.5 mg/dL (0.2-1.3); Blood Urea Nitrogen 9 mg/dL (7-17); Calcium 9.3 mg/dL (8.4-10.2); Carbon Dioxide 27 mmol/L (22-30); Chloride 103 mmol/L (98-107); Estimated CRCL calculation 68 ml/min; Estimated Glomerular Filt Rate > 60; Glucose 93 mg/dL (65-110); Lipase 104 U/L (23-300); Potassium 3.6 mmol/L (3.4-5.0); Sodium 137 mmol/L (137-145)
[2020-11-03 20:23] VITALS: BP 217/121; PULSE 87; RESP 16; O2SAT 95
[2020-11-03 20:25] VITALS: BP 209/115; PULSE 87; RESP 20; O2SAT 96
--- NOTE | 2020-11-03 21:15 | ED.ABDPAIN ---
HPI - Abdominal Pain General Chief Complaint: Abdominal Pain Stated Complaint: abd pain Time Seen by Provider: 11/03/20 21:00 Source: patient and RN notes reviewed Mode of arrival: ambulatory Limitations: no limitations History of Present Illness HPI narrative: Patient is 70 years old white female presents with abdominal pain, intermittent over 1 month. Gets worse after eating. Patient also reports watery stool 3-4 times after eating at night. Patient reports no diarrhea after eating at work. Patient denies any fever, or chills. Patient does not like doctors and does not like to go to a doctor. Patient had the first Covid vaccine few days ago. History of hypertension, COPD, she is actively smoking, and drinks alcohol daily. Patient lives with her son. Related Data Home Medications Medication Instructions Recorded Confirmed fluticasone propionate 1 spray INTRANASAL PRN 04/12/19 12/21/19 losartan 100 mg PO DAILY 04/12/19 12/21/19 fexofenadine [Allergy Relief 60 mg PO Q12H 12/12/19 12/21/19 (fexofenadine)] ipratropium bromide 1 ml CONTINUOUS NEBULIZATION QID 12/12/19 12/21/19 ofloxacin drp 11/03/20 Allergies Allergy/AdvReac Type Severity Reaction Status Date / Time Iodine and Iodide Containing AdvReac Unknown Verified 11/03/20 20:31 Produc Review of Systems Review of Systems: CONSTITUTIONAL: Denies fever, chills, or sweats. EYES: Denies visual changes, redness, or discharge. ENT: Denies rhinorrhea, congestion, sore throat, or otalgia. CARDIOVASCULAR: Denies chest pain, palpitations, or edema. RESPIRATORY: Denies cough or dyspnea. GASTROINTESTINAL: Denies abdominal pain, nausea, vomiting, or diarrhea. GENITOURINARY: Denies dysuria or hematuria. SKIN: Denies rash or itching. MUSCULOSKELETAL: Denies back pain, joint pain, or myalgia. NEUROLOGIC: Denies headache, numbness, or weakness. PSYCHIATRIC: Denies anxiety or depression. [facility] Past Medical History Medical History COPD (chronic obstructive pulmonary disease) Family hx of colon cancer Hypertension Surgical History Surgical History History of appendectomy History of colon surgery Family History Family History Father Colon cancer Social History Social History Smoking packs per day: 1 Smoking cigarettes per day: 20.0 Years smoked: 50 Smoking pack-years: 50.00 Smoking status: Current every day smoker Tobacco type: cigarettes Alcohol intake: current Drinks per week: 28 Alcohol use details: 4 Beers/Night Substance use: never Gender identity (if verbalized by the patient): Female Spiritual care concerns: No Agree to blood products: Yes Exam Narrative: General appearance: Well-developed, well-nourished Skin: Normal color Head: Normocephalic, nontraumatic Eyes: Clear conjunctiva ENT: Oropharynx normal, ears normal, nose normal Neck: Supple, nontender Chest and respiratory: Airway patent, no respiratory distress, no accessory muscle use Heart: Regular rate/rhythm Abdomen: Soft, mid abdominal tenderness, quiet bowel sounds Vascular: Normal peripheral pulses, normal capillary refill. Musculoskeletal: Normal range of motion, nontender back Neurologic: Alert and oriented ?3, INDEXER is normal as tested, no gross motor deficit Course Course Emergency Course: Improving Vital Signs Vital signs: Vital Signs Temperature 37.0 C 11/03/20 17:03 Pulse Rate 94 11/03/20 17:03 Respiratory Rate 14 11/03/20 17:03 Blood Pressure 185/97 H
[2020-11-03] MEDS: MORPHINE SULFATE (*CRX) 4 MG/ML INJ IV PUSH (21:33)
[2020-11-03] MEDS: SODIUM CHLORIDE 0.9% IV 1,000 ML 999 ML IV CONT (21:33)
[2020-11-03 22:07] VITALS: BP 207/103; PULSE 87; RESP 18; O2SAT 100
[2020-11-03 22:45] VITALS: BP 180/100; PULSE 85; RESP 20; O2SAT 95
--- NOTE | 2020-11-03 23:36 | PC.NURSE ---
Pt to CT via stretcher at this time.
[2020-11-04 00:49] VITALS: BP 165/90; PULSE 82; RESP 18; O2SAT 94
== END 2020-11-04 01:05 | disposition home or self-care (01) ==
PROVIDERS: Emergency Medicine; Emergency Provider Emergency Medicine; PCP Family Medicine
DX: R10.84 Generalized abdominal pain (principal); R19.7 Diarrhea, unspecified; J44.9 Chronic obstructive pulmonary disease, unspecified; I10 Essential (primary) hypertension; F17.210 Nicotine dependence, cigarettes, uncomplicated; R94.31 Abnormal electrocardiogram [ECG] [EKG]
CPT/HCPCS: 36415; 74176; 80053; 81003; 83690; 85025; 93005; 96361; 96374; 99284; J2270; J7030

== ENCOUNTER 2020-11-12 19:13 | Outpatient (CLI) | payer OTHER, SELFPAY ==
--- NOTE | ~2020-11-12 | XR_ITS ---
EXAMINATION: XR chest 2V DATE: 11/12/2020 19:36 INDICATION: Central chest pain, shortness of breath and cough. TECHNIQUE: PA and lateral views of the chest were obtained. COMPARISON: Chest radiograph dated 06/24/2019 FINDINGS: Upper expansion of lungs and increased lucency and architectural distortion at the upper lung zones c onsistent with emphysema. Mild biapical pleural-parenchymal scarring. No other airspace opacities, pu lmonary edema, pleural effusion or pneumothorax. The cardiomediastinal silhouette is normal. Calcifie d mediastinal and left hilar lymph nodes consistent with old granulomatous disease. Mild thoracic lev ocurvature. IMPRESSION: 1. Emphysema. No acute cardiopulmonary disease. Reviewed, dictated and finalized at location A.
== END 2020-11-12 19:14 | disposition home or self-care (01) ==
LOC: CHSIMG 19:16
PROVIDERS: PCP Family Medicine; Visit Provider Family Medicine
DX: R07.89 Other chest pain (principal)
CPT/HCPCS: 71046

== ENCOUNTER 2021-02-06 16:17 | Outpatient (CLI) | payer OTHER, SELFPAY ==
--- NOTE | ~2021-02-06 | XR_ITS ---
XR chest 2V DATE: 02/06/2021 17:25 INDICATION: Fall 2.5 weeks ago onto chest. Midsternal chest pain since then. TECHNIQUE: 2 views COMPARISON: 02/06/2021 sternum 11/12/2020 PA and lateral chest FINDINGS: Normal heart size. There is aortic calcification and unfolding. No hilar or mediastinal enl argement. Bilateral hyperinflation, consistent with COPD. No pulmonary infiltrate or consolidation, pleural eff usion or pulmonary vascular congestion or pneumothorax. Subtle recent virtually nondisplaced fracture of the body of the sternum is better demonstrated on th e lateral 02/06/2021 sternum radiograph. IMPRESSION: Virtually nondisplaced recent fracture of the body of the sternum Bilateral hyperinflation consistent with COPD Aortic atherosclerosis Diffuse osteopenia Levoscoliosis of the thoracic spine Reviewed, dictated and finalized at location A.
--- NOTE | ~2021-02-06 | XR_ITS ---
XR sternum min 2V DATE: 02/06/2021 17:24 INDICATION: Fall onto chest 2.5 weeks ago. Sternal pain since then. TECHNIQUE: Lateral and oblique views COMPARISON: None FINDINGS: There is diffuse osteopenia. There is a subtle virtually nondisplaced fracture of the mid body of the sternum. IMPRESSION: Recent sternal body fracture Diffuse osteopenia Reviewed, dictated and finalized at location A.
== END 2021-02-06 16:18 | disposition home or self-care (01) ==
LOC: CHSIMG 16:18
PROVIDERS: PCP Family Medicine; Visit Provider Family Medicine
DX: R07.89 Other chest pain (principal)
CPT/HCPCS: 71046; 71120

== ENCOUNTER 2021-02-12 12:41 | Outpatient (CLI) | payer OTHER, SELFPAY ==
--- NOTE | ~2021-02-12 | DEXA_ITS ---
Bone Density Report Name: Stefanie Raymundo Age: 71 Sex: Female Ethnicity: White Date of : 1950 Indication: postmenopausal; screening for osteoporosis; parental hip fracture; height loss; prior fracture; Referring Provider: Jarod Hernandez Study: Bone densitometry was performed. Exam Date: February 12, 2021 Accession number: [id number] Bone Density: Region BMD T-score Z-score Classification AP Spine(L1-L4) 1.088 0.4 2.5 Normal Femoral Neck (Left) 0.591 -2.3 -0.5 Osteopenia Total Hip (Left) 0.657 -2.3 -0.8 Osteopenia Femoral Neck (Right) 0.542 -2.8 -1.0 Osteoporosis Total Hip (Right) 0.638 -2.5 -1.0 Osteoporosis Femoral Neck Mean 0.566 -2.5 -0.8 Osteoporosis Total Hip Mean 0.648 -2.4 -0.9 Osteopenia World Health Organization criteria for BMD impression classify patients as: Normal (T-score at or above -1.0), Osteopenia (T-score between -1.0 and -2.5), or Osteoporosis (T-score at or below -2.5). 10-year Fracture Risk: FRAX not reported because: Some T-score for Spine Total or Hip Total or Femoral Neck at or below -2.5 Clinical Information Provided by Patient: Has had a low trauma fracture Parent has had a hip fracture Smokes Patient maximum height was 65 Menopause Age: 46 No regular weight bearing exercise Does not regularly consume dairy products Drinks caffeinated beverages Onset of menses at age 12 Number of children 4 Impression: The patient has established osteoporosis, based on the Right Femoral Neck T-score and the existence of a prior fracture. The patient has risk factors, including: parental hip fracture, smoking, previous fracture. Discussion: HIGH RISK OF FRACTURE. BONE DENSITY IS UNDESIRABLY LOW AT ONE OR MORE SKELETAL SITES, CONSISTENT WITH POSTMENOPAUSAL OSTEOPOROSIS. This patient's lowest T-score, in a patient who has previously fractured, meets the World Health Organization's (WHO) criteria for severe osteoporosis. In untreated patients, the risk of osteoporotic fracture increases approximately two-fold for each 1.0 SD decrease in T-score. Low bone density is not the only risk factor for fracture; also consider factors such as patient's age, frailty or poor health, risk of falling, risk of injury, previous osteoporotic fracture, family history of osteoporosis, cigarette smoking, low body weight, etc. Not everyone with low bone mineral density has osteoporosis; osteomalacia and other metabolic bone disorders should also be considered. Patients who have osteoporosis should be evaluated for specific diseases and conditions (secondary causes) that may cause or contribute to bone loss. The [place] [employer] Endocrinologists (AACE) and National Osteoporosis Foundation (NOF) recommend pharmacologic intervention for all postmenopausal women whose
== END 2021-02-12 12:42 | disposition home or self-care (01) ==
LOC: CHSIMG 12:42
PROVIDERS: PCP Family Medicine; Visit Provider Family Medicine
DX: M81.0 Age-related osteoporosis without current pathological fracture (principal)
CPT/HCPCS: 77080

== ENCOUNTER 2021-04-27 11:50 | Outpatient (CLI) | payer OTHER, SELFPAY ==
--- NOTE | ~2021-04-27 | XR_ITS ---
EXAMINATION: XR chest 2V 04/27/2021 12:20 INDICATION: Cough. COPD. PROCEDURE: 2 view chest COMPARISON: Comparison to multiple prior studies sequentially, with oldest reviewed study dated 08/2020. FINDINGS: The lungs are clear. The cardiomediastinal silhouette is within normal limits. There are no pleural effusions. There is no pneumothorax suspected. There is right apical pleural thickening/ scarring, unchanged. The lungs are hyperinflated which is consistent with, but not diagnostic of bank vault custodian jose obstructive pulmonary disease. IMPRESSION: 1: NO ACUTE CARDIOPULMONARY DISEASE. Reviewed, dictated and finalized at location B. ER CARD ROOM
[2021-04-27 12:33] LABS: Basophils Absolute Auto 0.06 K/mm3 (0.00-0.10); Basophils Percent Auto 0.6 % (0.0-1.0); Eosinophils Absolute Auto 0.15 K/mm3 (0.02-0.50); Eosinophils Percent Auto 1.4 % (1.0-6.0); Hematocrit 46.8 % (35.0-42.0); Hemoglobin 16.1 g/dL (11.7-13.8); Immature Granulocyte Absolute 0.03 K/mm3 (0.00-0.00); Immature Granulocyte Percent A 0.3 % (0.0-0.0); Lymphocytes Absolute Auto 2.36 K/mm3 (1.10-4.50); Lymphocytes Percent Auto 22.4 % (18.0-42.0); Mean Corpuscular HGB Conc 34.4 g/dL (32.0-36.0); Mean Corpuscular Hemoglobin 33.7 pg (27.0-31.0); Mean Corpuscular Volume 97.9 fL (78.0-102.0); Mean Platelet Volume 9.4 fl (9.2-11.8); Monocytes Absolute Auto 0.85 K/mm3 (0.10-0.90); Monocytes Percent Auto 8.1 % (2.0-11.0); Neutrophils Absolute Auto 7.1 K/mm3 (1.7-7.2); Neutrophils Percent Auto 67.2 % (50.0-70.0); Platelet Count Result 197 K/mm3 (150-420); Red Blood Count 4.78 M/mm3 (4.20-5.40); Red Cell Distribution Width 12.9 % (11.6-14.4); White Blood Count 10.5 K/mm3 (4.8-10.8)
[2021-04-27 12:36] LABS: Add Urine Microscopic? NO; Appearance Urine Clear (Clear); Bilirubin Urine Negative (Negative); Blood Urine Negative (Negative); Color Urine Light Yellow (Yellow); Glucose Urine UA Negative (Negative); Ketones Urine Negative (Negative); Leukocyte Esterase Ur Negative (Negative); Nitrate Urine Negative (Negative); Protein Urine Negative (Negative); Specific Grav Ur <= 1.005 (1.010-1.020); Urobilinogen Urine 0.2 mg/dL (0.2-1.0); pH Urine 5.5 (5.0-8.0)
[2021-04-27 12:47] LABS: SARS-CoV-2 Ag Negative (Negative)
[2021-04-27 13:34] LABS: Alanine Aminotransferase 33 U/L (14-59); Alkaline Phosphatase 108 U/L (46-116); Anion Gap 14 mmol/L (8-16); Aspartate Amino Transferase 44 U/L (15-37); Bilirubin,Total 0.4 mg/dL (0.00-1.00); Blood Urea Nitrogen 10 mg/dL (7-18); Calcium 9.1 mg/dL (8.5-10.1); Carbon Dioxide 27 mmol/L (21-32); Chloride 98 mmol/L (98-108); Estimated Glomerular Filt Rate > 60; Glucose 63 mg/dL (70-99); Osmolality Calculated 285 mOsm/kg (285-295); Potassium 3.5 mmol/L (3.5-5.1); Sodium 139 mmol/L (136-145); Thyroid Stimulating Hormone 1.07 uIU/mL (0.36-3.74)
[2021-04-28 19:07] LABS: SARS-CoV-2 RNA PCR Negative
[2021-05-01 00:25] LABS: Hepatitis A Antibody IgM Nonreactive; Hepatitis B Core Antibody Nonreactive (Nonreactive); Hepatitis B Surface Antigen Nonreactive (Nonreactive); Hepatitis C Signal to Cutoff 0.07 ratio (<1.00); Hepatitis C Virus Antibody Nonreactive (Nonreactive)
== END 2021-04-27 11:51 | disposition home or self-care (01) ==
PROVIDERS: PCP Family Medicine; Visit Provider Nurse Practitioner Family
DX: R05.9 Cough, unspecified (principal); J44.9 Chronic obstructive pulmonary disease, unspecified; R53.83 Other fatigue; Z20.822 Contact with and (suspected) exposure to COVID-19; R94.5 Abnormal results of liver function studies
CPT/HCPCS: 36415; 71046; 80053; 80074; 81003; 84443; 85025; 87086; 87088; 87426; C9803; U0003; U0005

== ENCOUNTER 2021-05-19 16:19 | Outpatient (CLI) | payer OTHER, SELFPAY ==
--- NOTE | ~2021-05-19 | CT_ITS ---
EXAMINATION: CT lung screening DATE: 05/19/2021 16:36 INDICATION: F17.200 - Nicotine dependence, unspecified, uncomplicated TECHNIQUE: Computed tomography (CT) of the chest was performed without intravenous contrast. Addition al 3D reconstructions utilizing coronal maximum intensity projection (MIP) were performed. Automated exposure control and iterative reconstruction technique were employed. The dose-length product was 63 .34 mGy-cm. COMPARISON: 05/19/2021 FINDINGS: Moderate emphysema in the upper lobes. Mild right apical pleural parenchymal scarring. A few small ca lcified nodules in the left lower lobe consistent with old granulomatous disease. Unchanged 5 mm nonc alcified subpleural nodule along the anterior right middle lobe. No pneumonia, pulmonary edema or ple ural effusion. Heart size is normal. Atherosclerotic coronary artery calcification. No pericardial ef fusion. Atherosclerotic calcification along the normal caliber thoracic aorta. Calcified left hilar a nd mediastinal lymph nodes along with intrahepatic and multiple splenic calcifications consistent wit h old granulomatous disease. No pathologically enlarged thoracic lymphadenopathy. 1.6 cm macroscopic fat attenuation nodule in the upper pole of the left kidney consistent with an angiomyolipoma. Mild d extrocurvature centered at L1-L2 there is severe left-sided disc height loss with Modic type III scle rotic endplate changes. Mild thoracic and moderate lower cervical spondylosis. Nondisplaced nonunited fracture at the sternomanubrial junction. IMPRESSION: 1. Lung-RADS category 2: Benign appearance or behavior. Continue annual screening with noncontrast lo w-dose chest CT in 12 months. Reviewed, dictated and finalized at location A. 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 Lung-RADS category 2: Benign appearance or behavior. Continue annual screeni ng with noncontrast low-dose chest CT in 12 months.
== END 2021-05-19 16:20 | disposition home or self-care (01) ==
LOC: ANHIMG 16:24
PROVIDERS: PCP Family Medicine; Visit Provider Nurse Practitioner Family
DX: F17.200 Nicotine dependence, unspecified, uncomplicated (principal)
CPT/HCPCS: 71271

== ENCOUNTER 2021-07-05 10:09 | Emergency (ER) | payer OTHER, SELFPAY ==
--- NOTE | ~2021-07-05 | XR_ITS ---
EXAMINATION: XR ribs RT 2V w CXR 2V INDICATION: Right-sided chest pain TECHNIQUE: PA and lateral views of the chest and 3 views of the right ribs were obtained. COMPARISON: 04/27/2021 FINDINGS: Old right-sided rib fractures are noted. There is a questionable acute fracture of the righ t ninth rib. The lungs are free of acute opacities. There is no pleural effusion or pneumothorax. The heart size is normal. There is moderate thoracic spondylosis. IMPRESSION: 1. Old right-sided rib fractures with possible acute right ninth rib fracture. 2. No acute cardiopulmonary abnormality. Reviewed, dictated and finalized at location A.
[2021-07-05 10:14] VITALS: BP 173/104; PULSE 88; RESP 16; TEMP 36.1; O2SAT 95
--- NOTE | 2021-07-05 10:20 | ED.FALL ---
HPI - Fall General Chief Complaint: Fall Stated Complaint: fell ribs and back pain Time Seen by Provider: 07/05/21 10:20 Source: patient and RN notes reviewed Mode of arrival: ambulatory Limitations: no limitations History of Present Illness HPI Narrative: patient states that she fell when she stepped backwards and thought she was going to step on the dog. She tried to avoid the dog lost her balance and fell into the counter with her right posterior ribs. Says it hurts to take a deep breath. complaint: fall Onset (ago): day(s) (4) Fall from: standing Place fall occurred: home Loss of consciousness: none Symptoms prior to fall: none Context: tripped/slipped (over the dog) Location of injury: chest (right ribs) Severity: severe Quality: dull, stabbing and aching Associated symptoms (after fall): denies Related Data Allergies Allergy/AdvReac Type Severity Reaction Status Date / Time Iodine and Iodide Containing AdvReac Unknown Verified 05/01/21 15:28 Produc Review of Systems Review of Systems: All systems reviewed & are unremarkable except as noted in HPI and below PMFSH Past Medical History Medical History COPD (chronic obstructive pulmonary disease) Family hx of colon cancer Hypertension Surgical History Surgical History History of appendectomy History of colon surgery Family History Family History Father Colon cancer Social History Social History Smoking packs per day: 1 Smoking cigarettes per day: 20.0 Years smoked: 50 Smoking pack-years: 50.00 Smoking status: Current every day smoker Tobacco type: cigarettes Alcohol intake: current Drinks per week: 28 Alcohol use details: 4 Beers/Night Substance use: never Gender identity (if verbalized by the patient): Female Spiritual care concerns: No Agree to blood products: Yes Exam Const: General: healthy appearing, no acute distress and alert Nutritional Appearance: well nourished Orientation/consciousness: patient oriented x3 HENMT: Head: normal to inspection, normocephalic and atraumatic Ears: external ears normal Eyes: Conjunctivae: conjunctivae normal Pupils: Equal, round and reactive pupils present EOM: EOMs intact bilaterally Neck: Neck: normal visual inspection Chest: Chest palpation & inspection: no crepitus and tenderness rib right posterior-axillary line involving the 7th rib, involving the 8th rib and involving the 9th rib Resp: Effort & Inspection: normal respiratory effort Auscultation: clear to auscultation bilaterally Cardio: Rate: regular rate Rhythm: regular rhythm GI: GI Palp: Yes Soft to palpation, No Tenderness to palpation present (GI) and No Guarding due to palpation present (GI) Auscultation: normal bowel sounds Back/Spine/Pelvis: Cervical Spine: cervical ROM normal Thoracic/Lumbar Spine: thoraco-lumbar ROM normal Skin: General skin exam: normal color Neuro: General: patient oriented x3, moves all extremities and no focal motor deficits Speech: normal speech Gait exam (Neuro): Normal gait present Extrem: General: normal to inspection and no clubbing, cyanosis or edema Psych: Appearance: grossly normal and well kempt Mental Status: mental status grossly normal Affect: normal affect Attitude: cooperative Thought content: Yes Normal thought content present Course Course Emergency Course: I offered patient a shot pain medication she declined any narcotic. She said she would use the Tylenol with codeine and ibuprofen at home. Vital Signs Vital signs: Vital Signs Temperature 36.1 C L 07/05/21 10:14 Pulse Rate 88 07/05/21 10:14 Respiratory Rate 16 07/05/21 10:14 Blood Pressure 173/104 H 07/05/21 10:14 Pulse Oximetry 95 07/05/21 10:14 Temperature 3
[2021-07-05 10:32] VITALS: BP 173/104; PULSE 88; RESP 16; TEMP 36.1; O2SAT 95
[2021-07-05 11:51] VITALS: BP 170/97; PULSE 78; RESP 16; O2SAT 96
== END 2021-07-05 11:51 | disposition home or self-care (01) ==
PROVIDERS: Emergency Provider Emergency Medicine; PCP Family Medicine
DX: S22.31XA Fracture of one rib, right side, initial encounter for closed fracture (principal); W19.XXXA Unspecified fall, initial encounter; J44.9 Chronic obstructive pulmonary disease, unspecified; I10 Essential (primary) hypertension; F17.200 Nicotine dependence, unspecified, uncomplicated
CPT/HCPCS: 71046; 71100; 99283

== ENCOUNTER 2021-09-09 18:27 | Outpatient (CLI) | payer OTHER, SELFPAY ==
--- NOTE | ~2021-09-09 | XR_ITS ---
[XR ribs RT 2V w CXR 2V ] INDICATION: Right chest pain TECHNIQUE: Frontal projection of the upper right ribs, frontal projection of the lower right ribs, ob lique projection of all the right ribs, frontal inspiratory chest x-ray for interpretation. FINDINGS: There are no acute displaced rib fractures identified. There are healed right eighth, nint h and 10th rib fractures. There are no soft tissue abnormality seen. The lungs are clear. IMPRESSION: 1:No acute displaced rib fractures. Reviewed, dictated and finalized at location B.
== END 2021-09-09 18:28 | disposition home or self-care (01) ==
LOC: CHSIMG 18:27
PROVIDERS: PCP Family Medicine; Visit Provider Family Medicine
DX: R07.89 Other chest pain (principal)
CPT/HCPCS: 71046; 71100

== ENCOUNTER 2021-09-17 22:32 | Observation (INO) | payer OTHER, SELFPAY ==
--- NOTE | ~2021-09-17 | XR_ITS ---
XR chest 2V DATE: 09/17/2021 23:09 INDICATION: Weakness. COPD. TECHNIQUE: 2 views COMPARISON: 09/09/2021 2 view chest FINDINGS: There is bilateral hyperinflation including increased retrosternal airspace, and the diaphr agm, consistent with clinical diagnosis of COPD. No pulmonary infiltrate or consolidation, pleural effusion or pulmonary vascular congestion or pneumo thorax is detected. Normal heart size. There is aortic calcification and mild unfolding. No hilar or mediastinal enlargem ent. Diffuse osteopenia. IMPRESSION: Bilateral hyperinflation consistent with COPD No active cardiopulmonary disease Aortic atherosclerosis Reviewed, dictated and finalized at location A.
[2021-09-17 22:45] VITALS: BP 186/100; PULSE 117; RESP 18; TEMP 36.6; O2SAT 96
[2021-09-17] MEDS: SODIUM CHLORIDE 0.9% IV 1,000 ML 999 ML IV CONT (23:18)
[2021-09-17] MEDS: ONDANSETRON INJ 4 MG/2 ML VIAL IV PUSH (23:18)
[2021-09-17 23:23] LABS: Basophils Absolute Auto 0.02 K/mm3 (0.00-0.10); Basophils Percent Auto 0.2 % (0.0-1.0); Eosinophils Absolute Auto 0.25 K/mm3 (0.02-0.50); Eosinophils Percent Auto 2.4 % (1.0-6.0); Hematocrit 44.1 % (35.0-42.0); Hemoglobin 15.5 g/dL (11.7-13.8); Immature Granulocyte Absolute 0.03 K/mm3 (0.00-0.00); Immature Granulocyte Percent A 0.3 % (0.0-0.0); Lymphocytes Absolute Auto 2.81 K/mm3 (1.10-4.50); Lymphocytes Percent Auto 27.1 % (18.0-42.0); Mean Corpuscular HGB Conc 35.1 g/dL (32.0-36.0); Mean Corpuscular Hemoglobin 34.2 pg (27.0-31.0); Mean Corpuscular Volume 97.4 fL (78.0-102.0); Mean Platelet Volume 9.3 fl (9.2-11.8); Monocytes Absolute Auto 0.81 K/mm3 (0.10-0.90); Monocytes Percent Auto 7.8 % (2.0-11.0); Neutrophils Absolute Auto 6.4 K/mm3 (1.7-7.2); Neutrophils Percent Auto 62.2 % (50.0-70.0); Platelet Count Result 229 K/mm3 (150-420); Red Blood Count 4.53 M/mm3 (4.20-5.40); Red Cell Distribution Width 12.2 % (11.6-14.4); White Blood Count 10.4 K/mm3 (4.8-10.8)
[2021-09-17 23:25] LABS: Add Urine Microscopic? NO; Appearance Urine Clear (Clear); Bilirubin Urine Negative (Negative); Blood Urine Negative (Negative); Color Urine Light Yellow (Yellow); Glucose Urine UA Negative (Negative); Ketones Urine Negative (Negative); Leukocyte Esterase Ur Negative (Negative); Nitrate Urine Negative (Negative); Protein Urine Negative (Negative); Urobilinogen Urine 0.2 mg/dL (0.2-1.0); pH Urine 5.5 (5.0-8.0)
[2021-09-17 23:41] LABS: Alanine Aminotransferase 21 U/L (14-59); Albumin Level 4.1 g/dL (3.4-5.0); Alkaline Phosphatase 102 U/L (46-116); Anion Gap 11 mmol/L (8-16); Aspartate Amino Transferase 31 U/L (15-37); Bilirubin,Total 0.7 mg/dL (0.00-1.00); Blood Urea Nitrogen 11 mg/dL (7-18); Calcium 8.8 mg/dL (8.5-10.1); Carbon Dioxide 26 mmol/L (21-32); Chloride 97 mmol/L (98-108); Creatine Kinase 59 U/L (26-192); Estimated Glomerular Filt Rate > 60; Glucose 91 mg/dL (70-99); Lipase 91 U/L (73-393); Osmolality Calculated 277 mOsm/kg (285-295); Potassium 3.2 mmol/L (3.5-5.1); Sodium 134 mmol/L (136-145); Total Protein 6.9 g/dL (6.4-8.2)
[2021-09-17 23:42] LABS: Lactic Acid Reflex 2.9 mmol/L (0.4-2.0)
[2021-09-17 23:44] LABS: CRP < 0.2 mg/dL (0.0-0.9)
--- NOTE | 2021-09-17 23:50 | ED.NAVMDI ---
HPI - Nausea/Vomiting/Diarrhea General Chief complaint: Nausea/Vomiting/Diarrhea Stated complaint: vomiting Source: patient and family Mode of arrival: ambulatory Limitations: no limitations History of Present Illness HPI Narrative: This is a 71-year-old female who presents with nausea vomiting with no abdominal pain no fever chills initially blood pressure elevated at 186 systolic with a heart rate of 117, the patient has been feeling nauseated with episodes of vomiting over the last 2 to 3 days, was recently diagnosed with shingles and has been taking Valcyclovir but is had difficulty keeping it down, currently no fever chills patient has a history of COPD but currently no chest pain no shortness of breath no abdominal pain. MD elicited complaint: nausea and vomiting Onset (ago): day(s) Associated nausea: Yes Associated abdominal pain: No Related Data Home Medications Medication Instructions Recorded Confirmed cephalexin 500 mg capsule 500 cap PO DAILY 09/17/21 09/17/21 escitalopram oxalate 10 mg tablet 10 tablet PO DAILY 09/17/21 09/17/21 omeprazole 40 mg capsule,delayed 40 cap PO DAILY 09/17/21 09/17/21 release sulfamethoxazole 800 See Rx Instructions .Route .COMPLEX 09/17/21 09/17/21 mg-trimethoprim 160 mg tablet valacyclovir 1 gram tablet 1 tablet PO DAILY 09/17/21 09/17/21 Allergies Allergy/AdvReac Type Severity Reaction Status Date / Time mercury (elemental) Allergy Unknown Verified 09/17/21 22:50 Iodine and Iodide Containing AdvReac Unknown Verified 08/27/21 15:27 Produc Review of Systems Review of Systems: All systems reviewed & are unremarkable except as noted in HPI and below PMFSH Past Medical History Medical History COPD (chronic obstructive pulmonary disease) Family hx of colon cancer Hypertension Surgical History Surgical History History of appendectomy History of colon surgery Family History Family History Father Colon cancer Social History Social History Smoking packs per day: 1 Smoking cigarettes per day: 20.0 Years smoked: 50 Smoking pack-years: 50.00 Smoking status: Current every day smoker Tobacco type: cigarettes Alcohol intake: current Drinks per week: 28 Alcohol use details: 4 Beers/Night Substance use: never 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 Gender identity (if verbalized by the patient): Female Spiritual care concerns: No Agree to blood products: Yes Exam Const: General: healthy appearing and no acute distress Limitations: no limitations HENMT: Head: normal to inspection Eyes: Conjunctivae: conjunctivae normal Pupils: Equal, round and reactive pupils present Neck: Neck: normal visual inspection, no lymphadenopathy and no meningeal signs Chest: Chest palpation & inspection: normal inspection of the chest Resp: Effort & Inspection: normal respiratory effort Auscultation: clear to auscultation bilaterally Cardio: Rate: tachycardic Rhythm: regular rhythm GI: GI Palp: Yes Soft to palpation Auscultation: normal bowel sounds Urinary Catheter: Urinary Catheter: patent and draining Back/Spine/Pelvis: Back: no CVA tenderness Skin: General skin exam: normal color Rashes: no rashes Neuro: General: patient oriented x3 and moves all extremities Cranial nerves: Yes Nystagmus not present Speech: normal speech Gait exam (Neuro): Normal gait present Extrem: General: normal to inspection Psych: Mental Status: mental status grossly normal Affect: normal affect Course Course Emergency Course: Labs and x-rays reviewed with patient blood pressure has improved as well as heart rate has come down to the 90s, chest x-ray reviewed with patient and family, labs reviewed an
[2021-09-18] VITALS: BP 167/77; PULSE 109; RESP 16; O2SAT 94
[2021-09-18] MEDS: KCL 20 MEQ/SW 100 ML 100 ML 50 MEQ IVPB (00:03)
--- NOTE | 2021-09-18 00:34 | PC.NURSE ---
Pt admitted with kcl and 0.9 bolus running. floor made aware
[2021-09-18 00:50] LABS: Reflex Lactic Acid Yes or No No Lactic Reflex
[2021-09-18] MEDS: SODIUM CHLORIDE 0.9% IV 1,000 ML 100 ML IV CONT (02:30)
[2021-09-18 04:00] VITALS: BP 118/92; PULSE 110; RESP 20; TEMP 36.1; O2SAT 93
--- NOTE | 2021-09-18 04:19 | PC.NURSE ---
Patient admitted to room 210 from th ER, is alert and oriented times 4.
[2021-09-18 04:22] VITALS: BMI 23.4
[2021-09-18 08:00] VITALS: BP 159/90; PULSE 88; RESP 20; TEMP 36.6; O2SAT 94
[2021-09-18] MEDS: FLUTICASONE/UMECLIDIN/VILANTER 100-62.5-25 MCG ELLIPTA 1 PUFF INHALATION (08:14)
[2021-09-18] MEDS: PANTOPRAZOLE 40 MG TABLET PO (08:16)
[2021-09-18 08:46] LABS: Hematocrit 41.5 % (35.0-42.0); Hemoglobin 14.7 g/dL (11.7-13.8); Mean Corpuscular HGB Conc 35.4 g/dL (32.0-36.0); Mean Corpuscular Hemoglobin 34.6 pg (27.0-31.0); Mean Corpuscular Volume 97.6 fL (78.0-102.0); Mean Platelet Volume 9.4 fl (9.2-11.8); Platelet Count Result 197 K/mm3 (150-420); Red Blood Count 4.25 M/mm3 (4.20-5.40); Red Cell Distribution Width 12.5 % (11.6-14.4)
[2021-09-18 09:35] LABS: Lactic Acid Reflex 0.9 mmol/L (0.4-2.0)
[2021-09-18 09:53] LABS: Alanine Aminotransferase 19 U/L (14-59); Albumin Level 3.4 g/dL (3.4-5.0); Alkaline Phosphatase 85 U/L (46-116); Anion Gap 6 mmol/L (8-16); Aspartate Amino Transferase 30 U/L (15-37); Bilirubin,Total 1.3 mg/dL (0.00-1.00); Blood Urea Nitrogen 7 mg/dL (7-18); Calcium 8.4 mg/dL (8.5-10.1); Carbon Dioxide 27 mmol/L (21-32); Chloride 105 mmol/L (98-108); Estimated CRCL calculation 62 ml/min; Estimated Glomerular Filt Rate > 60; Glucose 89 mg/dL (70-99); Osmolality Calculated 283 mOsm/kg (285-295); Potassium 3.8 mmol/L (3.5-5.1); Sodium 138 mmol/L (136-145); Total Protein 6.2 g/dL (6.4-8.2)
--- NOTE | 2021-09-18 10:28 | PM.SD2 ---
Same Day Admit/Disch: HPI History of Present Illness Chief complaint: DEHYDRATION HYPOKALEMIA NAUSEA VOMITING Narrative: Stefanie Raymundo is a 71 year old female that presented to our emergency department with complaints of nausea and vomiting. Patient has a past medical history of COPD and hypertension. According to patient he went to her primary care physician's office on Tuesday for treatment of a possible left shoulder she was prescribed Keflex, Bactrim and valacyclovir with a treatment of a spider bite and or possible shingles patient notes that shortly afterwards she started develop nausea and vomiting. Spoke with patient's primary care physician and informed him that I would discontinue the use of Bactrim and Keflex and start patient on clindamycin for a bug bite and continue the antiviral for shingles. WBCs 10.4, hemoglobin 15.5, 44.1, platelets 229, sodium 134, potassium 3.2, BUN 11, creatinine 0.82, glucose 91, liver function test within normal limits, CRP less than 0.2, chest x-ray no new findings. Patient agrees that her condition has improved since admission she will discharge home with a change in her medication. The patient denies SOB, CP, palpitation, extremity numbness, lightheadedness, dizziness, constipation, diarrhea, chills, or fever. 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 Gender identity (if verbalized by the patient): Female Spiritual care concerns: No Agree to blood products: Yes Same Day Admit/Disch: Med Pre-admit Medications Home Medications Medication Instructions Recorded Confirmed Type Trelegy Ellipta 100 mcg-62.5 1 inh inhalation Q24H 90 days #180 05/01/21 09/17/21 Rx mcg-25 mcg powder for inhalation ea (kltbpaujtmm-vytgckhno-[id number]) albuterol sulfate 90 mcg/actuation 1 - 2 puff inhalation Q4-6H PRN 08/27/21 09/17/21 Rx aerosol inhaler shortness of breath or wheezing #8.5 grams nicotine 14 mg/24 hr daily 1 patch transdermal DAILY #7 ea 08/27/21 09/17/21 Rx transdermal patch (Nicoderm CQ) nicotine 21 mg/24 hr daily 1 patch transdermal DAILY #14 ea 08/27/21 09/17/21 Rx transdermal patch (Nicoderm CQ) nicotine 7 mg/24 hr daily 1 patch transdermal DAILY #7 ea 08/27/21 09/17/21 Rx transdermal patch (Nicoderm CQ) escitalopram oxalate 10 mg tablet 10 tablet PO DAILY 09/17/21 09/17/21 History omeprazole 40 mg capsule,delayed 40 cap PO DAILY 09/17/21 09/17/21 History release valacyclovir 1 gram tablet 1 tablet PO DAILY 09/17/21 09/17/21 History clindamycin HCl 300 mg capsule 300 mg PO Q8H 7 days #21 caps 09/18/21 Rx ondansetron 4 mg disintegrating 4 mg PO Q6H PRN nausea and 09/18/21 Rx tablet vomiting #30 tabs Exam Narrative: GENERAL: This is a well-nourished, well-developed patient, in no apparent distress. HEAD: normocephalic, atraumatic. EYES: PERRL. Sclera clear/white. Vision is grossly intact. EARS: External ears normal, auditory canals clear and without drainage, TMs normal without perforation. Hearing grossly intact. NOSE: External nose normal with no obvious nasal discharge, nares without red
--- NOTE | 2021-09-18 11:46 | PC.NURSE ---
Patient discharged at 1130, via personal vehicle, accompanied by friend. Discharge instructions given, patient states understanding.
--- NOTE | 2021-09-23 13:17 | PC.NURSE ---
Pt states she received and understood her discharge instructions. Pt also states they treated me very, very well .
== END 2021-09-18 11:30 | disposition home or self-care (01) ==
LOC: CHSED 23:55 → CHS2ND 09-18 07:29
PROVIDERS: Nurse Practitioner; Admitting Provider Internal Medicine; Emergency Provider Emergency Medicine; PCP Family Medicine; Visit Provider Internal Medicine
DX: E86.0 Dehydration (principal); R11.2 Nausea with vomiting, unspecified; E87.6 Hypokalemia; J44.9 Chronic obstructive pulmonary disease, unspecified; I10 Essential (primary) hypertension; F17.210 Nicotine dependence, cigarettes, uncomplicated; B02.9 Zoster without complications; Z80.0 Family history of malignant neoplasm of digestive organs
CPT/HCPCS: 36415; 71046; 80053; 81003; 82550; 83605; 83690; 85025; 85027; 86140; 87040; 96361; 96374; 99285; A9270; G0378; J2405; J3480; J7030

== ENCOUNTER 2021-09-21 15:29 | Outpatient (CLI) | payer OTHER, SELFPAY ==
--- NOTE | ~2021-09-21 | US_ITS ---
EXAMINATION: US right upper quadrant DATE: 09/21/2021 16:05 INDICATION: Epigastric abdominal pain. TECHNIQUE: Multiple grayscale and Doppler ultrasound images of the abdomen were obtained. COMPARISON: CT abdomen and pelvis 11/03/2020 FINDINGS: The visualized portions of the head, body, and tail of the pancreas are normal. The liver d emonstrates heterogeneous steatosis. There is normal flow in main portal vein. The gallbladder is nor mal in size. No gallstones or gallbladder wall thickening. There was no sonographic Leigh sign. The common duct is normal and measures 3 mm. IMPRESSION: 1. Hepatic steatosis. Reviewed, dictated and finalized at location A. IMPRESSION: 1. Hepatic steatosis.
== END 2021-09-21 15:30 | disposition home or self-care (01) ==
PROVIDERS: PCP Family Medicine; Visit Provider Family Medicine
DX: R10.13 Epigastric pain (principal); K76.0 Fatty (change of) liver, not elsewhere classified
CPT/HCPCS: 76705

== ENCOUNTER 2021-12-10 14:00 | Outpatient (CLI) | payer OTHER, SELFPAY ==
[2021-12-10 14:16] LABS: Basophils Absolute Auto 0.05 K/mm3 (0.00-0.10); Basophils Percent Auto 0.6 % (0.0-1.0); Eosinophils Absolute Auto 0.09 K/mm3 (0.02-0.50); Eosinophils Percent Auto 1.1 % (1.0-6.0); Hematocrit 48.2 % (35.0-42.0); Hemoglobin 16.6 g/dL (11.7-13.8); Immature Granulocyte Absolute 0.03 K/mm3 (0.00-0.00); Immature Granulocyte Percent A 0.4 % (0.0-0.0); Lymphocytes Absolute Auto 2.48 K/mm3 (1.10-4.50); Lymphocytes Percent Auto 29.1 % (18.0-42.0); Mean Corpuscular HGB Conc 34.4 g/dL (32.0-36.0); Mean Corpuscular Hemoglobin 33.7 pg (27.0-31.0); Mean Corpuscular Volume 97.8 fL (78.0-102.0); Mean Platelet Volume 9.2 fl (9.2-11.8); Monocytes Absolute Auto 0.84 K/mm3 (0.10-0.90); Monocytes Percent Auto 9.9 % (2.0-11.0); Neutrophils Percent Auto 58.9 % (50.0-70.0); Platelet Count Result 211 K/mm3 (150-420); Red Blood Count 4.93 M/mm3 (4.20-5.40); White Blood Count 8.5 K/mm3 (4.8-10.8)
[2021-12-10 14:35] LABS: Add Urine Microscopic? NO; Appearance Urine Clear (Clear); Bilirubin Urine Negative (Negative); Blood Urine Negative (Negative); Color Urine Light Yellow (Yellow); Glucose Urine UA Negative (Negative); Ketones Urine Negative (Negative); Leukocyte Esterase Ur Negative LEU/UL (Negative); Nitrate Urine Negative (Negative); Protein Urine Negative (Negative); Specific Grav Ur <= 1.005 (1.010-1.020); Urobilinogen Urine 0.2 mg/dL (0.2-1.0)
[2021-12-10 14:41] LABS: Alanine Aminotransferase 41 U/L (14-59); Alkaline Phosphatase 110 U/L (46-116); Amylase 24 U/L (25-115); Anion Gap 10 mmol/L (8-16); Aspartate Amino Transferase 68 U/L (15-37); Bilirubin,Total 2.1 mg/dL (0.00-1.00); Blood Urea Nitrogen 9 mg/dL (7-18); Calcium 9.2 mg/dL (8.5-10.1); Carbon Dioxide 30 mmol/L (21-32); Chloride 98 mmol/L (98-108); Estimated Glomerular Filt Rate > 60; Glucose 96 mg/dL (70-99); Lipase 67 U/L (73-393); Osmolality Calculated 284 mOsm/kg (285-295); Potassium 3.7 mmol/L (3.5-5.1); Sodium 138 mmol/L (136-145); Total Protein 7.2 g/dL (6.4-8.2)
[2021-12-16 04:19] LABS: Hepatitis A Antibody IgM Nonreactive; Hepatitis B Core Antibody Nonreactive (Nonreactive); Hepatitis B Surface Antigen Nonreactive (Nonreactive); Hepatitis C Signal to Cutoff 0.05 ratio (<1.00); Hepatitis C Virus Antibody Nonreactive (Nonreactive)
== END 2021-12-10 14:01 | disposition home or self-care (01) ==
LOC: CHSLAB 14:02
PROVIDERS: PCP Family Medicine; Visit Provider Nurse Practitioner Family
DX: R11.2 Nausea with vomiting, unspecified (principal); I10 Essential (primary) hypertension
CPT/HCPCS: 36415; 80053; 80074; 81003; 82150; 83690; 85025

== ENCOUNTER 2022-03-16 13:15 | Emergency (ER) | payer OTHER, SELFPAY ==
--- NOTE | ~2022-03-16 | XR_ITS ---
Portable chest x-ray Comparison: 09/17/2021 Clinical History: Cough, covid 19 positive Findings: Lungs are clear, without focal consolidation or pleural effusion. Cardiomediastinal silho uette is stable. Bones and soft tissues are unremarkable. Impression: Clear lungs. Reviewed, dictated and finalized at location [] ATION ONCOLOGIST Impression: Clear lungs.
[2022-03-16 13:20] VITALS: BP 134/83; PULSE 86; RESP 20; TEMP 36.2; O2SAT 96
--- NOTE | 2022-03-16 13:40 | ED.NAVMDI ---
HPI - Nausea/Vomiting/Diarrhea General Chief complaint: Nausea/Vomiting/Diarrhea Stated complaint: DR SENT TO ER POSSIBLE PNEUMONIA Time Seen by Provider: 03/16/22 13:30 Source: patient and RN notes reviewed Mode of arrival: ambulatory Limitations: no limitations History of Present Illness HPI Narrative: patient states that she has been having some nausea vomiting diarrhea for the last 3 days. She called her primary care physician and told them that she usually has phlegm every morning because of her COPD but the last couple of days she has not had any phlegm when she coughs in the morning. She thinks she may have pneumonia. She thinks she might be dehydrated she just overall weak. MD elicited complaint: nausea, vomiting and diarrhea Onset (ago): day(s) (3) Description of vomiting: food contents and bilious Description of diarrhea: watery Associated nausea: Yes Associated abdominal pain: Yes ( sore from vomiting) Location of pain: diffuse Pain consistency: intermittent Severity: mild Quality: aching and dull Exacerbating factors: eating Relieving factors: none Associated symptoms: myalgias, cough, headaches, weakness and other (sore throat) Related Data Allergies Allergy/AdvReac Type Severity Reaction Status Date / Time mercury (elemental) Allergy Unknown Verified 03/16/22 13:28 Iodine and Iodide Containing AdvReac Unknown Verified 03/16/22 13:28 Produc Review of Systems Review of Systems: All systems reviewed & are unremarkable except as noted in HPI and below Constitutional: Constitutional: Denies chills and Denies fever(s) PMFSH Past Medical History Medical History COPD (chronic obstructive pulmonary disease) Family hx of colon cancer Hypertension Surgical History Surgical History History of appendectomy History of colon surgery Family History Family History Father Colon cancer Social History Social History Smoking packs per day: 1 Smoking cigarettes per day: 20.0 Years smoked: 50 Smoking pack-years: 50.00 Smoking status: Current every day smoker Tobacco type: cigarettes Alcohol intake: current Drinks per week: 28 Alcohol use details: 4 Beers/Night Substance use: never Substance use type: does not use 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 Gender identity (if verbalized by the patient): Female Spiritual care concerns: No Agree to blood products: Yes Exam Const: General: no acute distress, alert and ill appearing acutely Nutritional Appearance: well nourished Orientation/consciousness: patient oriented x3 Limitations: no limitations HENMT: Head: normal to inspection Ears: external ears normal Eyes: Conjunctivae: conjunctivae normal Cornea: corneas normal Pupils: Equal, round and reactive pupils present EOM: EOMs intact bilaterally Neck: Neck: normal visual inspection Resp: Effort & Inspection: normal respiratory effort Auscultation: rhonchi upper bilaterally (scattered) Cardio: Rate: regular rate Rhythm: regular rhythm GI: GI Palp: Yes Soft to palpation, Yes Tenderness to palpation present (GI) ( mild generalized), No Guarding due to palpation present (GI) and No Rebound tenderness present Auscultation: normal bowel sounds Back/Spine/Pelvis: Cervical Spine: cervical ROM normal Thoracic/Lumbar Spine: thoraco-lumbar ROM normal Skin: General skin exam: normal color Rashes: no rashes Neuro: General: patient oriented x3, moves all extremities, no focal motor deficits and CN's II-XI intact bilaterally Speech: normal speech Gait exam (Neuro): Normal gait present Extrem: General: normal to inspection and no clubbing, cyanosis or edema Psych: Mental Status: mental status grossly normal Affect: normal affect
[2022-03-16 14:36] LABS: Basophils Absolute Auto 0.03 K/mm3 (0.00-0.10); Basophils Percent Auto 0.5 % (0.0-1.0); Eosinophils Absolute Auto 0.04 K/mm3 (0.02-0.50); Eosinophils Percent Auto 0.7 % (1.0-6.0); Hematocrit 44.2 % (35.0-42.0); Hemoglobin 15.1 g/dL (11.7-13.8); Immature Granulocyte Absolute 0.02 K/mm3 (0.00-0.00); Immature Granulocyte Percent A 0.4 % (0.0-0.0); Lymphocytes Absolute Auto 2.27 K/mm3 (1.10-4.50); Lymphocytes Percent Auto 39.8 % (18.0-42.0); Mean Corpuscular HGB Conc 34.2 g/dL (32.0-36.0); Mean Corpuscular Hemoglobin 33.8 pg (27.0-31.0); Mean Corpuscular Volume 98.9 fL (78.0-102.0); Mean Platelet Volume 9.6 fl (9.2-11.8); Monocytes Absolute Auto 0.54 K/mm3 (0.10-0.90); Monocytes Percent Auto 9.5 % (2.0-11.0); Neutrophils Absolute Auto 2.8 K/mm3 (1.7-7.2); Neutrophils Percent Auto 49.1 % (50.0-70.0); Platelet Count Result 175 K/mm3 (150-420); Red Blood Count 4.47 M/mm3 (4.20-5.40); Red Cell Distribution Width 12.9 % (11.6-14.4); White Blood Count 5.7 K/mm3 (4.8-10.8)
[2022-03-16 14:51] LABS: Alanine Aminotransferase 34 U/L (14-59); Albumin Level 3.6 g/dL (3.4-5.0); Alkaline Phosphatase 107 U/L (46-116); Anion Gap 5 mmol/L (8-16); Aspartate Amino Transferase 57 U/L (15-37); Bilirubin,Total 0.2 mg/dL (0.00-1.00); Blood Urea Nitrogen 7 mg/dL (7-18); CRP 1.1 mg/dL (0.0-0.9); Carbon Dioxide 34 mmol/L (21-32); Chloride 99 mmol/L (98-108); Estimated Glomerular Filt Rate > 60; Glucose 80 mg/dL (70-99); Magnesium 1.9 mg/dL (1.8-2.4); Osmolality Calculated 283 mOsm/kg (285-295); Potassium 3.8 mmol/L (3.5-5.1); Sodium 138 mmol/L (136-145); Total Protein 7.4 g/dL (6.4-8.2)
[2022-03-16 15:12] LABS: Influenza A QL RT-PCR Negative (Negative); Influenza B QL RT-PCR Negative (Negative); SARS-CoV-2 RNA PCR Positive (Negative)
[2022-03-16 15:45] VITALS: BP 129/78; PULSE 81; RESP 18; TEMP 36.7; O2SAT 95
== END 2022-03-16 15:50 | disposition home or self-care (01) ==
PROVIDERS: Emergency Provider Emergency Medicine; PCP Family Medicine
DX: U07.1 COVID-19 (principal); J44.9 Chronic obstructive pulmonary disease, unspecified; I10 Essential (primary) hypertension
CPT/HCPCS: 36415; 71045; 80053; 83735; 85025; 86140; 87502; 99283; U0003; U0005

== ENCOUNTER 2022-03-24 15:59 | Outpatient (CLI) | payer OTHER, SELFPAY ==
--- NOTE | ~2022-03-24 | XR_ITS ---
Clinical Indication: Covid 19 positive, cough PA and lateral views of the chest: Comparison: 03/16/2022 Findings: The lungs are clear, without evidence of focal consolidation or pleural effusion. COPD note d. Cardiomediastinal silhouette is within normal limits. Stable calcified mediastinal lymph nodes. Addi wes and soft tissues are unremarkable. Impression: Clear lungs. COPD pattern. Stable calcified mediastinal lymph nodes. Reviewed, dictated and finalized at location M. CY ADVISER Impression: Clear lungs. COPD pattern. Stable calcified mediastinal lymph nodes.
[2022-03-24 16:49] LABS: Basophils Percent Auto 0.7 % (0.0-1.0); Eosinophils Percent Auto 2.8 % (1.0-6.0); Hematocrit 43.8 % (35.0-42.0); Hemoglobin 15.1 g/dL (11.7-13.8); Immature Granulocyte Absolute 0.04 K/mm3 (0.00-0.00); Immature Granulocyte Percent A 0.5 % (0.0-0.0); Lymphocytes Absolute Auto 2.87 K/mm3 (1.10-4.50); Lymphocytes Percent Auto 38.2 % (18.0-42.0); Mean Corpuscular HGB Conc 34.5 g/dL (32.0-36.0); Mean Corpuscular Hemoglobin 33.5 pg (27.0-31.0); Mean Corpuscular Volume 97.1 fL (78.0-102.0); Mean Platelet Volume 9.8 fl (9.2-11.8); Monocytes Absolute Auto 0.57 K/mm3 (0.10-0.90); Monocytes Percent Auto 7.6 % (2.0-11.0); Neutrophils Absolute Auto 3.8 K/mm3 (1.7-7.2); Neutrophils Percent Auto 50.2 % (50.0-70.0); Platelet Count Result 183 K/mm3 (150-420); Red Blood Count 4.51 M/mm3 (4.20-5.40); Red Cell Distribution Width 12.2 % (11.6-14.4); White Blood Count 7.5 K/mm3 (4.8-10.8)
[2022-03-24 16:50] LABS: Basophils Absolute Auto 0.05 K/mm3 (0.00-0.10); Eosinophils Absolute Auto 0.21 K/mm3 (0.02-0.50)
[2022-03-24 17:42] LABS: Alanine Aminotransferase 26 U/L (14-59); Albumin Level 3.5 g/dL (3.4-5.0); Alkaline Phosphatase 111 U/L (46-116); Anion Gap 8 mmol/L (8-16); Aspartate Amino Transferase 40 U/L (15-37); Bilirubin,Total 0.5 mg/dL (0.00-1.00); Blood Urea Nitrogen 13 mg/dL (7-18); Calcium 8.6 mg/dL (8.5-10.1); Carbon Dioxide 32 mmol/L (21-32); Chloride 102 mmol/L (98-108); Estimated Glomerular Filt Rate > 60; Glucose 69 mg/dL (70-99); Osmolality Calculated 292 mOsm/kg (285-295); Potassium 4.1 mmol/L (3.5-5.1); Sodium 142 mmol/L (136-145); Thyroid Stimulating Hormone 0.91 uIU/mL (0.36-3.74); Total Protein 6.7 g/dL (6.4-8.2)
== END 2022-03-24 16:00 | disposition home or self-care (01) ==
LOC: CHSLAB 16:01
PROVIDERS: PCP Family Medicine; Visit Provider Family Medicine
DX: U07.1 COVID-19 (principal); J44.9 Chronic obstructive pulmonary disease, unspecified; I89.8 Other specified noninfective disorders of lymphatic vessels and lymph nodes
CPT/HCPCS: 36415; 71046; 80053; 84443; 85025

== ENCOUNTER 2022-04-18 12:14 | Emergency (ER) | payer OTHER, SELFPAY ==
--- NOTE | ~2022-04-18 | XR_ITS ---
XR ankle RT min 3V DATE: 04/18/2022 12:43 INDICATION: Fall, lateral ankle and foot pain TECHNIQUE: 4 views COMPARISON: None FINDINGS: There is moderate lateral soft tissue swelling. There is a very subtle transverse lucency o f the lateral malleolus suggesting a very subtle nondisplaced lateral malleolar fracture. The medial malleolus and posterior malleolus are intact. Prominent plantar calcaneal enthesopathy. Calcification of the distal Achilles tendon. IMPRESSION: Very subtle transverse nondisplaced lateral malleolar fracture with moderate overlying so ft tissue swelling Reviewed, dictated and finalized at location A. CARD TENDER IMPRESSION: Very subtle transverse nondisplaced lateral malleolar fracture with moderate overlying soft tissue swelling
--- NOTE | ~2022-04-18 | XR_ITS ---
XR foot RT min 3V DATE: 04/18/2022 12:43 INDICATION: Fall. Lateral pain. TECHNIQUE: 4 portable views COMPARISON: None FINDINGS: Prominent plantar and mild posterior calcaneal enthesopathy. Mild distal Achilles tendon ca lcification. There is mild osteoarthritis at the first metatarsophalangeal joint. Soft tissue swelling over the lateral malleolus. No foot fracture or dislocation is detected. IMPRESSION: Soft tissue swelling over lateral malleolus Calcaneal enthesopathy and distal Achilles tendon calcification Mild first metatarsophalangeal joint osteoarthritis Reviewed, dictated and finalized at location A. TER TACKER
[2022-04-18 12:17] VITALS: BP 156/73; PULSE 97; RESP 16; TEMP 37; O2SAT 96
[2022-04-18 12:20] VITALS: BP 156/73; PULSE 97; RESP 20; TEMP 37; O2SAT 95
--- NOTE | 2022-04-18 12:27 | ED.GENADULT ---
HPI - General Adult General Chief complaint: Extremity Injury, Lower Stated complaint: right ankle injury Time Seen by Provider: 04/18/22 12:18 History of Present Illness HPI narrative: PATIENT IS 72-YEAR-OLD WHITE FEMALE TRIPPED AND FELL AND TWISTED HER RIGHT ANKLE COMPLAINS OF SWELLING AND PAIN AND RIGHT LATERAL MALLEOLAR AREA JUST PRIOR TO ADMISSION. DENIES ANY PREVIOUS INJURY NUMBNESS OR TINGLING. TO 10/10 IN PAIN HURTS TO WALK AND UNABLE TO BEAR WEIGHT ON IT. DENIES ANY OTHER INJURY. DENIES ANY KNEE HIP PAIN CHEST ABDOMEN OR NECK OR HEAD PAIN OR UPPER EXTREMITY PAIN Related Data Allergies Allergy/AdvReac Type Severity Reaction Status Date / Time mercury (elemental) Allergy Unknown Verified 04/18/22 12:25 Iodine and Iodide Containing AdvReac Unknown Verified 04/18/22 12:25 Produc Review of Systems Constitutional: Constitutional: Reports no additional constitutional complaints Eyes: Eyes: Reports no additional eye complaints ENT: Reports system reviewed and no additional complaints, except as documented Cardiovascular: Cardiovascular: Reports as per HPI and Reports no additional cardiovascular complaints Respiratory: Respiratory: Reports as per HPI, Reports no additional respiratory complaints, Denies pain with cough and Denies dyspnea Gastrointestinal: Gastrointestinal: Reports as per HPI, Reports no additional gastrointestinal complaints, Denies nausea and Denies vomiting Genitourinary: Genitourinary: Reports no additional female genitourinary complaints Musculoskeletal: Musculoskeletal: Reports no additional musculoskeletal complaints, Reports as per HPI, Denies back pain, Reports arthralgias, Reports joint swelling, Denies muscle weakness, Denies neck pain, Denies numbness, Denies stiffness and Denies tingling Neurologic: Reports system reviewed and no additional complaints, except as documented [facility] Past Medical History Medical History COPD (chronic obstructive pulmonary disease) Family hx of colon cancer Hypertension Surgical History Surgical History History of appendectomy History of colon surgery Family History Family History Father Colon cancer Social History Social History Smoking packs per day: 1 Smoking cigarettes per day: 20.0 Years smoked: 50 Smoking pack-years: 50.00 Smoking status: Current every day smoker Tobacco type: cigarettes Alcohol intake: current Drinks per week: 28 Alcohol use details: 4 Beers/Night Substance use: never Substance use type: does not use 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 SHE IS ALERT AND ORIENT X4 HEAD IS NORMOCEPHALIC ATRAUMATIC NECK IS SUPPLE NONTENDER WITH FULL RANGE OF MOTION BACK IS NONTENDER. CHEST WALL IS NONTENDER. LUNGS ARE CLEAR HEART IS REGULAR RATE RHYTHM WITHOUT MURMURS GALLOPS OR RUBS VITAL SIGNS ARE NORMAL. ABDOMEN SOFT AND NONTENDER EXTREMITIES NO CYANOSIS CLUBBING OR EDEMA HER EXTREMITIES ARE NORMAL WITH EXCEPTION OF HER RIGHT ANKLE SHOWS SWELLING THE LATERAL MALLEOLUS MODERATE AMOUNT WITH TENDERNESS SURROUNDING THE LATERAL MALLEOLUS. DP AND PT PULSES ARE +2. SCATTERED VARICOSE VEINS OVER THE FOOT AND ANKLE. RANGE OF MOTION IS NORMAL. NEUROLOGICAL SHE IS ALERT AND ORIENTED MOTOR AND SENSORY GROSSLY INTACT. GAIT WAS NOT TESTED SECONDARY TO PAIN. Course Course Emergency Course: X-RAY OF HER RIGHT FOOT AND ANKLE SHOWED VARIATION SUBTLE TRANSVERSE NONDISPLACED LATERAL MALLEOLAR FRACTURE WITH MODERATE OVERLYING SOFT TISSUE SWELLING. RIGHT FOOT
[2022-04-18] MEDS: MORPHINE SULFATE (*CRX) 2 MG/ML INJ IV PUSH (12:33)
[2022-04-18 12:39] VITALS: BP 141/78; PULSE 90; RESP 18; O2SAT 95
[2022-04-18 12:52] VITALS: BP 134/77; PULSE 88; RESP 18; O2SAT 95
[2022-04-18 13:44] VITALS: BP 165/81; PULSE 92; RESP 18; TEMP 36.7; O2SAT 96
[2022-04-18] MEDS: HYDROcodone/acetaminophen (*CRX) 5-325 MG TABLET 1 TAB PO (13:51)
== END 2022-04-18 13:55 | disposition home or self-care (01) ==
PROVIDERS: Emergency Provider Emergency Medicine; PCP Family Medicine
DX: S82.64XA Nondisplaced fracture of lateral malleolus of right fibula, initial encounter for closed fracture (principal); W01.0XXA Fall on same level from slipping, tripping and stumbling without subsequent striking against object, initial encounter; I10 Essential (primary) hypertension; J44.9 Chronic obstructive pulmonary disease, unspecified; F17.210 Nicotine dependence, cigarettes, uncomplicated; Z79.51 Long term (current) use of inhaled steroids
CPT/HCPCS: 73610; 73630; 96374; 99284; A9270; J2270; L2112

== ENCOUNTER 2022-05-20 09:14 | Outpatient (CLI) | payer OTHER, SELFPAY ==
--- NOTE | ~2022-05-20 | CT_ITS ---
EXAMINATION: CT lung screening DATE: 05/20/2022 09:34 INDICATION: Personal history of nicotine dependence, current smoker with 75 pack year history TECHNIQUE: Computed tomography (CT) of the chest was performed without intravenous contrast. The dose -length product (DLP) was 67.51 mGy-cm. Automated exposure control and iterative reconstruction techn [employer] were employed. COMPARISON: 05/19/2021 FINDINGS: There is moderate emphysema. There is a stable 5 mm nodule of the right middle lobe. Calcif ied pulmonary nodules and calcified left hilar and mediastinal lymph nodes are consistent with old gr anulomatous disease. No pathologically enlarged thoracic lymph nodes are identified. The heart size i s normal. There is calcified coronary artery atherosclerosis. Punctate calcifications in an otherwise normal spleen likely represent healed granulomatous disease. 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 IMPRESSION: 1. Lung-RADS category 2: Benign appearance or behavior. Continue annual screening with noncontrast lo w-dose chest CT in 12 months. Reviewed, dictated and finalized at location A. TRONIC INDUCTION HARDENER IMPRESSION: 1. Lung-RADS category 2: Benign appearance or behavior. Continue annual screeni ng with noncontrast low-dose chest CT in 12 months.
== END 2022-05-20 09:15 | disposition home or self-care (01) ==
PROVIDERS: PCP Family Medicine; Visit Provider Nurse Practitioner Family
DX: Z12.2 Encounter for screening for malignant neoplasm of respiratory organs (principal); Z87.891 Personal history of nicotine dependence
CPT/HCPCS: 71271

== ENCOUNTER 2022-05-31 07:55 | Outpatient (CLI) | payer OTHER, SELFPAY ==
--- NOTE | ~2022-05-31 | XR_ITS ---
XR ankle RT min 3V 05/31/2022 08:11 Indication: Right ankle pain Procedure: 3 views right ankle Comparison: 04/18/2022 Findings: There is a healing transverse fracture distal aspect of the fibula with developing sclerosi s. There is an old avulsion fracture at the medial malleolus. Talar dome is normal. Osteopenia. There is a degenerative calcaneal enthesophyte. There is mild osteoarthritis of the midfoot. Persistent la teral soft tissue swelling. Impression: 1: Healing transverse nondisplaced lateral malleolar fracture. Reviewed, dictated and finalized at location B. EL BUILDER Impression: 1: Healing transverse nondisplaced lateral malleolar fracture.
== END 2022-05-31 07:56 | disposition home or self-care (01) ==
LOC: CHSIMG 07:57
PROVIDERS: PCP Family Medicine; Visit Provider Orthopaedic Surgery
DX: M25.571 Pain in right ankle and joints of right foot (principal); S82.64XD Nondisplaced fracture of lateral malleolus of right fibula, subsequent encounter for closed fracture with routine healing
CPT/HCPCS: 73610

== ENCOUNTER 2022-07-02 12:23 | Outpatient (CLI) | payer OTHER, SELFPAY ==
--- NOTE | 2022-07-02 13:15 | ECHO_ITS ---
Patient Info Name: Stefanie Raymundo Age: 72 years : 1950 Gender: Female Ht: 65 in Wt: 138 lbs BSA: 1.70 m2 HR: 86 bpm BP: 133 / 76 mmHg Technical Quality: Good Exam Date: 07/02/2022 12:25 PM Exam Location: [facility] EM[facility] Patient Status: Outpatient Admit Date: 07/02/2022 Staff Ordering Physician: Jarod Hernandez MD Heel Lift Gouger: Van Leigh, DELILAH, RT Attending Provider: Jarod Hernandez MD Referring Physician: Mary SANTOS; Exam Type: CA echo doppler color flow Study Info Indications I10 - Essential (primary) hypertension R53.83 - Other fatigue Complete two-dimensional, color flow and Doppler transthoracic echocardiogram is performed. Strain analysis performed. Summary 1. Complete two-dimensional, color flow and Doppler transthoracic echocardiogram is performed. 2. Left ventricular chamber dimension is normal. 3. Left ventricular systolic function is normal, estimated at 60-65%. 4. There is moderate concentric increased left ventricular wall thickness. 5. The left ventricular diastolic function is grade I diastolic dysfunction. 6. E/e' 12 is mildly elevated. 7. Global longitudinal strain is abnormal at -15.2%. 8. Left atrial chamber dimension is mildly enlarged. 9. There is mild aortic valve sclerosis. 10. No pulmonary hypertension, estimated pulmonary arterial systolic pressure is 33 mmHg. 11. There is mild pulmonic regurgitation. Left Ventricle E/e' 12 is mildly elevated. Global longitudinal strain is abnormal at -15.2%. Left ventricular chamber dimension is normal. Left ventricular systolic function is normal, estimated at 60-65%. There is moderate concentric increased left ventricular wall thickness. The left ventricular diastolic function is grade I diastolic dysfunction. Right Ventricle Right ventricular systolic function is normal and with normal TAPSE 1.8 cm. Right ventricular chamber dimension is normal. Left Atria Left atrial chamber dimension is mildly enlarged. Right Atria Right atrial chamber dimension is normal. Aortic Valve The aortic valve is trileaflet. There is mild aortic valve sclerosis. There is no aortic valve stenosis. There is no aortic valve regurgitation. Pulmonic Valve There is mild pulmonic regurgitation. Mitral Valve There is no mitral valve stenosis. There is no mitral valve regurgitation. Tricuspid Valve There is no tricuspid valve regurgitation. No pulmonary hypertension, estimated pulmonary arterial systolic pressure is 33 mmHg. Pericardium/Pleural There is no pericardial effusion. Inferior Vena Cava Normal inferior vena cava with >50% collapse upon inspiration consistent with normal right atrial pressure, 5 mmHg. Aorta The aortic root size at the sinus of Valsalva is normal. Left Ventricular Outflow Tract Name Value Normal LVOT 2D LVOT Diameter 2.0 cm LVOT Doppler LVOT Peak Velocity 94 cm/s LVOT Peak Gradient 4 mmHg LVOT Mean Gradient 2 mmHg LVOT VTI 16 cm LVOT VTI/AV VTI Ratio
== END 2022-07-02 12:24 | disposition home or self-care (01) ==
LOC: CHSIMG 12:24
PROVIDERS: PCP Family Medicine; Visit Provider Family Medicine
DX: G93.32 Myalgic encephalomyelitis/chronic fatigue syndrome (principal); I10 Essential (primary) hypertension; I37.1 Nonrheumatic pulmonary valve insufficiency; I35.8 Other nonrheumatic aortic valve disorders
CPT/HCPCS: 93306

== ENCOUNTER 2022-08-12 11:35 | Inpatient (IN) | payer OTHER, SELFPAY ==
[2022-08-12] VITALS (31 sets, daily range): BP systolic 119–153; BP diastolic 64–91; PULSE 88–125; RESP 16–30; TEMP 35.6–36.6; O2SAT 92–100; BMI 23.1
--- NOTE | ~2022-08-12 | US_ITS ---
US abdomen limited INDICATION: Elevated liver function tests PROCEDURE: Realtime right upper abdominal ultrasound. COMPARISON: No prior studies for comparison. FINDINGS: The pancreas is normal without focal mass or pancreatic ductal dilation. Liver echotexture is increased, consistent with fatty infiltration. There is normal directional flow in the portal ve in. The gallbladder is normal without stones, gallbladder wall thickening or pericholecystic fluid. Comm on bile duct measures 4 mm. No sonographic Leigh's sign. IMPRESSION: 1: Hepatic steatosis. Reviewed, dictated and finalized at location B. IMPRESSION: 1: Hepatic steatosis.
--- NOTE | ~2022-08-12 | XR_ITS ---
EXAMINATION: XR chest 1V portable DATE: 08/12/2022 12:19 INDICATION: COPD presenting with 2 days of dyspnea TECHNIQUE: frontal view of the chest was obtained. COMPARISON: Chest radiograph dated 03/24/[address] dated 05/20/2022 FINDINGS: There is relative increased lucency in the upper lung zones with bronchovascular crowding the lower l jeovany zones consistent with emphysema better appreciated on prior CT. New airspace opacity in the right upper lung zone suspicious for pneumonia. Unchanged right apical pleural-parenchymal scarring with a few small calcified nodules likely sequela of old granulomatous disease. Mild increased interstitial pattern in the lower lung zones and additional mild opacities in the left lower lung zone which coul d also represent pneumonia, mild pulmonary edema or atelectasis. No pleural effusion or pneumothorax. Heart size is normal. Couple old healed right rib fractures. IMPRESSION: 1. Emphysema with new patchy airspace opacity in the right upper lung zone which is suspicious for pn eumonia. 2. Increased interstitial pattern at the bilateral lung bases with mild airspace opacities in the lef t lower lung zone which could represent additional pneumonia, pulmonary edema, atelectasis or some co mbination thereof. Reviewed, dictated and finalized at location A. IMPRESSION: 1. Emphysema with new patchy airspace opacity in the right upper lung zone whic h is suspicious for pneumonia. 2. Increased interstitial pattern at the bilateral lung bases with mild airspac e opacities in the left lower lung zone which could represent additional pneumo esthela, pulmonary edema, atelectasis or some combination thereof.
--- NOTE | 2022-08-12 12:04 | ED.SOB ---
HPI - SOB/Dyspnea General Chief Complaint: Shortness of Breath/Dyspnea Stated Complaint: i can't hardly breath /cough Time Seen by Provider: 08/12/22 12:01 Source: patient Mode of arrival: ambulatory Limitations: no limitations History of Present Illness HPI Narrative: Patient is a 72-year-old female with a history of COPD presenting to the emergency department for evaluation of shortness of breath. Patient states she has felt unwell over the past 2 days. She reports shortness of breath, congestion. Denies fever or chills. Reports that cough usually has sputum production, but denies any sputum production or hemoptysis. She denies chest pain. She typically uses albuterol inhaler and Trelegy inhaler at home, has not been successful using that for the past 48 hours. Patient reports slight amount of wheezing. She denies any pleuritic pain. She does report shortness of breath at rest that worsens considerably with exertion. She denies leg swelling or calf pain. No abdominal pain. No nausea or vomiting. Related Data Home Medications Medication Instructions Recorded Confirmed biotin 5,000 mcg disintegrating 10,000 mcg PO DAILY 07/26/22 07/26/22 tablet magnesium 250 mg tablet 250 mg PO DAILY 07/26/22 07/26/22 multivitamin (Daily Multi-Vitamin 1 tablet PO DAILY 07/26/22 07/26/22 tablet) zinc acetate 50 mg (zinc) capsule 50 mg PO DAILY 07/26/22 07/26/22 Allergies Allergy/AdvReac Type Severity Reaction Status Date / Time mercury (elemental) Allergy Unknown Verified 08/12/22 11:36 Iodine and Iodide Containing AdvReac Unknown Verified 08/12/22 11:36 Produc Review of Systems Review of Systems: CONSTITUTIONAL: Denies fever, chills, or sweats. EYES: Denies visual changes, redness, or discharge. ENT: Reports rhinorrhea, congestion, denies sore throat about Laureen CARDIOVASCULAR: Denies chest pain, palpitations, or edema. RESPIRATORY: Reports dry cough and shortness of breath GASTROINTESTINAL: Denies abdominal pain, nausea, vomiting, or diarrhea. GENITOURINARY: Denies dysuria or hematuria. SKIN: Denies rash or itching. MUSCULOSKELETAL: Denies back pain, joint pain, or myalgia. NEUROLOGIC: Denies headache, numbness, or weakness. 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 Smoking packs per day: 1 Smoking cigarettes per day: 20.0 Years smoked: 50 Smoking pack-years: 50.00 Smoking status: Current every day smoker Tobacco type: cigarettes Alcohol intake: current Drinks per week: 28 Alcohol use details: 4 Beers/Night Substance use: never Substance use type: does not use Occupation/Education: occupation 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 EYES: PERRLA and EOMI. ENT: Nares clear, no rhinorrhea or epistaxis. Mucous membranes moist. NECK: Supple. CHEST: Tachypnea, coarse breath sounds bilateral lower lobes, mild expiratory wheezing, rhonchi present, bilateral upper lobes, use of accessory muscles to breathe HEART: Tachycardic rate, sinus rhythm ABDOMEN:Non distended, non tender EXTREMITIES: Normal range of motion. No edema. SKIN: Warm, dry, no
--- NOTE | 2022-08-12 12:05 | ECG_ITS ---
Measurements Intervals [place] Rate: 122 P: 75 IA: 145 QRS: 37 QRSD: 73 T: 59 QT: 300 QTc: 428 Interpretive Statements SINUS TACHYCARDIA DELAYED PRECORDIAL R/S TRANSITION MINIMAL Q WAVES- INFERIOR LEADS BASELINE ARTIFACT- I, II, AVR, AVL, AVF, V2 ABNORMAL ECG COMPARED TO ECG 11/03/2020 17:10:12 SINUS TACHYCARDIA NOW PRESENT Electronically Signed On 08-12-2022 12:45:36 CDT by Ch[place] Roman D.O.
[2022-08-12] MEDS: SODIUM CHLORIDE 0.9% IV 500 ML 999 ML IV CONT (12:15)
[2022-08-12] MEDS: methylPREDNISolone SOD SUCC 125 MG VIAL IV PUSH (12:16)
[2022-08-12] MEDS: ALBUTEROL SULFATE NEB 2.5 MG/3 ML INH 5 MG INHALATION (12:23)
[2022-08-12] MEDS: IPRATROPIUM BR 0.02% INH SOLN 0.5 MG/2.5 ML VIAL INHALATION ×2 (12:23→20:09)
[2022-08-12 12:26] LABS: Basophils Absolute Auto 0.1 K/mm3 (0.0-0.1); Basophils Percent Auto 0.5 % (0.2-1.2); Eosinophils Percent Auto 0.1 % (0-4.4); Hemoglobin 15.6 g/dL (12.0-15.0); Immature Granulocyte Absolute 0.23 K/mm3 (0.00-0.031); Immature Granulocyte Percent A 1.2 % (0-0.5); Lymphocytes Percent Auto 9.7 % (18.3-44.2); Mean Corpuscular HGB Conc 34.7 g/dl (32-36); Mean Corpuscular Hemoglobin 33.8 pg (26-34); Mean Corpuscular Volume 97.6 fl (80-100); Monocytes Absolute Auto 1.1 K/mm3 (0.1-0.6); Monocytes Percent Auto 5.7 % (2.6-8.5); Neutrophils Absolute Auto 15.4 K/mm3 (1.3-6.7); Neutrophils Percent Auto 82.8 % (45.5-73.1); Platelet Count Result 176 k/mm3 (150-375); Red Blood Count 4.61 M/mm3 (4.2-5.4); Red Cell Distribution Width 12.9 % (11.5-14.5); White Blood Count 18.6 K/mm3 (4.5-10.0)
[2022-08-12 12:33] LABS: Alveolar/Arterial O2 Gradient 99.7 mmHg; Base Excess ABG 3.8 mEq/l (+/-2.0); Carboxyhemoglobin 4.1 % THb (0-2.0); Fractional Inspired Oxygen 28 %; HCO3 ABG 26.1 mEq/l (22.0-26.0); Methemoglobin ABG 0.3 %THb (0-1.5); PCO2 ABG 32.6 mmHg (35.0-45.0); PO2 ABG 61.5 mmHg (80.0-100.0); Reduced Hemoglobin 6.6 %THb (0-5.0); Total Hemoglobin 15.2 g/dL (12.0-18.0)
[2022-08-12 12:34] LABS: Alanine Aminotransferase 32 U/L (6-35); Albumin Level 4.3 g/dL (3.5-5.1); Alkaline Phosphatase 116 U/L (38-126); Anion Gap 9 mmol/L (8-16); Aspartate Amino Transferase 46 U/L (14-36); Bilirubin,Total 1.7 mg/dL (0.2-1.3); Blood Urea Nitrogen 13 mg/dL (7-17); Calcium 9.1 mg/dL (8.4-10.2); Carbon Dioxide 30 mmol/L (22-30); Chloride 94 mmol/L (98-107); Estimated CRCL calculation 104 ml/min; Estimated Glomerular Filt Rate > 60; Glucose 112 mg/dL (65-110); Potassium 3.4 mmol/L (3.4-5.0); Sodium 133 mmol/L (137-145)
[2022-08-12 12:36] LABS: Device NASAL CANNULA; Modified Allen's Test Pass; Site Drawn RIGHT RADIAL; pH ABG 7.521 (7.350-7.450)
[2022-08-12 12:46] LABS: NT Pro B Type Natriuretic Pept 9080 pg/mL (19.9-100); Troponin I < 0.012 ng/mL (0.000-0.034)
[2022-08-12 13:12] LABS: Lactic Acid Reflex 1.3 mmol/L (0.7-2.0)
[2022-08-12 13:38] LABS: Influenza A QL RT-PCR Negative (Negative); Influenza B QL RT-PCR Negative (Negative); RSV RNA, RT-PCR Negative (Negative); SARS-CoV-2 RNA PCR Negative (Negative)
--- NOTE | 2022-08-12 14:05 | PM.IMHP ---
H&P: HPI History of Present Illness Date/Time: 08/12/22 14:05 Chief Complaint: Shortness of breath and cough Narrative: this is a 72-year-old female patient has a history of COPD. The patient does not chronically wear oxygen at home. Patient has been feeling unwell for the last 2 days. She has been feeling short of breath and having chest congestion. The patient stated that she coughs a productive cough every morning however lately it has been nonproductive. She feels like she has a mucus plug and cannot get it out. She does typically use an albuterol inhaler and Trelegy inhaler at home. She has used these without any relief. She does have shortness of breath at rest and is worse with exertion. She denies any weight gain or leg swelling. No nausea vomiting. The patient stated that she did go to work today and wanted the instructors drove her here to the hospital. The instructor told the patient that she looked horrible and needed to go the hospital. The patient was given a nebulizer treatment in the emergency room and started on Solu-Medrol as well as azithromycin Rocephin. Her white count was noted to be 18.6. Arterial blood gases pH 7.521 pCO2 was 32.6. Sodium 133. Total bilirubin 1.7. AST is 46. Troponin negative. BNP 9008. However the patient did not appear to be fluid overloaded. She was negative for influenza A/B and COVID. Chest x-ray was read as the following. Emphysema with new patchy airspace opacity in the right upper lung zone which is suspicious for pneumonia. 2. Increased interstitial pattern at the bilateral lung bases with mild airspace opacities in the left lower lung zone which could represent additional pneumonia, pulmonary edema, atelectasis or some combination thereof. the patient is being admitted to observation status on the date of service of 08/12/2022. Review of Systems Review of Systems: All systems reviewed & are unremarkable except as noted in HPI and below Constitutional: Constitutional: Reports as per HPI and Reports no additional constitutional complaints Eyes: Eyes: Reports as per HPI and Reports no additional eye complaints ENT: Reports system reviewed and no additional complaints, except as documented and Reports Normal hearing present Cardiovascular: Cardiovascular: Reports no additional cardiovascular complaints Respiratory: Respiratory: Reports no additional respiratory complaints and Reports no additional respiratory complaints Gastrointestinal: Gastrointestinal: Reports as per HPI and Reports no additional gastrointestinal complaints Musculoskeletal: Musculoskeletal: Reports no additional musculoskeletal complaints Integumentary/Breasts: Skin/Breast: Reports system reviewed and no additional complaints, except as docu and Reports as per HPI Neurologic: Reports system reviewed and no additional complaints, except as documented, Reports as per HPI and Reports Normal hearing present Psychiatric: Psychiatric: Reports no additional psychiatric complaints and Reports as per HPI Endocrine: Endocrine: Reports no additional endocrine complaints Hematologic/Lymphatic: Hematologic/Lymphatic: Reports no additional hematologic/lymphatic complaints Allergic/Immunologic: Allergic/Immunologic: Reports no additional allergic/immunologic complaints [facility] Past Medical History Medical History COPD (chronic obstructive pulmonary disease) Family hx of colon cancer Hypertension Surgical History Surgical History (Updated 08/12/22 @ 18:12 by Klarissa Devine NP) H/O colonoscopy with polypectomy H/O tubal ligation History of appendectomy History of colon surgery cecum S/P tonsillectomy Family History Family History Father Colon cancer Social History Social History (Updated 08/12/22 @ 18:05 by Klarissa Devine NP) Social History: She lives with a roommate. She is
[2022-08-12] MEDS: LEVALBUTEROL NEB 1.25 MG/3 ML 0.63 MG INHALATION ×2 (14:26→20:10)
--- NOTE | 2022-08-12 18:03 | ADMGEN ---
This patient, Stefanie Raymundo, was admitted to 3 [facility] Surg Room 310-01. Patient/family oriented to hospital policies and general routines including ID bracelet, bed and alarms, visiting hours, pain management, procedures, bathroom and other care routines, personal items, smoking policy, room service/diet, and visiting hours. Information on how to activate the Rapid Response Team has been discussed. Patient/Family are encouraged to report perceived risks to care and to ask questions if they do not understand what they are told or what they should do. Report from Jeff
[2022-08-12] MEDS: methylPREDNISolone SOD SUCC 125 MG VIAL 60 MG IV PUSH (21:15)
[2022-08-13] VITALS (16 sets, daily range): BP systolic 118–144; BP diastolic 74–87; PULSE 100–115; RESP 16–20; TEMP 35.8–36.5; O2SAT 95–98
[2022-08-13] MEDS: methylPREDNISolone SOD SUCC 125 MG VIAL 60 MG IV PUSH (05:25)
[2022-08-13] MEDS: FLUTICASONE/UMECLIDIN/VILANTER 100-62.5-25 MCG ELLIPTA 1 PUFF INHALATION (08:23)
[2022-08-13] MEDS: LEVALBUTEROL NEB 1.25 MG/3 ML 0.63 MG INHALATION ×3 (08:23→20:28)
[2022-08-13] MEDS: IPRATROPIUM BR 0.02% INH SOLN 0.5 MG/2.5 ML VIAL INHALATION ×3 (08:23→20:28)
[2022-08-13] MEDS: MAGNESIUM 13.5 MG TABLET (250 MG MAG GLUCONATE) PO (08:53)
[2022-08-13] MEDS: ZINC SULFATE 220 MG CAPSULE PO (08:54)
[2022-08-13] MEDS: MULTIVITAMINS THERAPEUTIC TAB (*BKC) 1 TABLET PO (08:54)
[2022-08-13] MEDS: chlordiazePOXIDE (*CRX) 25 MG CAPSULE PO (09:02)
[2022-08-13 09:27] LABS: Basophils Percent Auto 0.1 % (0.2-1.2); Hematocrit 42.3 % (37.0-47.0); Hemoglobin 14.6 g/dL (12.0-15.0); Immature Granulocyte Absolute 0.24 K/mm3 (0.00-0.031); Immature Granulocyte Percent A 1.3 % (0-0.5); Lymphocytes Absolute Auto 0.74 K/mm3 (0.9-3.2); Lymphocytes Percent Auto 4.2 % (18.3-44.2); Mean Corpuscular HGB Conc 34.5 g/dl (32-36); Mean Corpuscular Hemoglobin 33.7 pg (26-34); Mean Corpuscular Volume 97.7 fl (80-100); Mean Platelet Volume 10.4 fl (7.4-10.4); Monocytes Absolute Auto 0.4 K/mm3 (0.1-0.6); Neutrophils Absolute Auto 16.5 K/mm3 (1.3-6.7); Neutrophils Percent Auto 92.4 % (45.5-73.1); Platelet Count Result 188 k/mm3 (150-375); Red Blood Count 4.33 M/mm3 (4.2-5.4); Red Cell Distribution Width 12.6 % (11.5-14.5); White Blood Count 17.8 K/mm3 (4.5-10.0)
[2022-08-13 09:30] LABS: Alanine Aminotransferase 28 U/L (6-35); Alkaline Phosphatase 112 U/L (38-126); Anion Gap 5 mmol/L (8-16); Aspartate Amino Transferase 33 U/L (14-36); Bilirubin,Total 0.9 mg/dL (0.2-1.3); Blood Urea Nitrogen 15 mg/dL (7-17); Calcium 9.7 mg/dL (8.4-10.2); Carbon Dioxide 31 mmol/L (22-30); Chloride 97 mmol/L (98-107); Estimated CRCL calculation 94 ml/min; Estimated Glomerular Filt Rate > 60; Glucose 166 mg/dL (65-110); Potassium 3.8 mmol/L (3.4-5.0); Sodium 133 mmol/L (137-145)
[2022-08-13 11:24] LABS: Alveolar/Arterial O2 Gradient 42.5 mmHg; Base Excess ABG 3.9 mEq/l (+/-2.0); Fractional Inspired Oxygen 21 %; HCO3 ABG 25.7 mEq/l (22.0-26.0); Oxygen Content ABG 19.9 %vol (16.0-22.0); Oxyhemoglobin 94.6 % THb (90.0-100.0); PCO2 ABG 30.8 mmHg (35.0-45.0); PO2 ABG 70.3 mmHg (80.0-100.0); PO2 FiO2 Ratio Arterial Blood 3.35 %
[2022-08-13 11:29] LABS: Site Drawn LEFT BRACHIAL; pH ABG 7.539 (7.350-7.450)
--- NOTE | 2022-08-13 14:11 | PM.IMPN ---
Progress Note: A&P Assessment and Plan (1) Community acquired pneumonia: Qualifiers: Laterality: right Lung location: lower lobe of lung Qualified Code(s): J18.9 - Pneumonia, unspecified organism Code(s): J18.9 - Pneumonia, unspecified organism Status: Acute Assessment and Plan: patient presented to the ED with difficulty breathing / shortness of breath. X-ray found emphysema and pneumonia. azithromycin and Rocephin sputum and blood cultures are pending tailor antibiotics according to the cultures and sensitivities continue with nebulizer treatment (2) Acute exacerbation of chronic obstructive airways disease: Code(s): J44.1 - Chronic obstructive pulmonary disease with (acute) exacerbation Status: Acute Assessment and Plan: Patient presented with shortness of breath and difficulty breathing. X-ray showing emphysema pneumonia. Patient started on IV Solu-Medrol Patient was admitted on 2 L of oxygen but this has been weaned down to room air now. Continue with nebulizer treatments. Continue with Trelegy 08/13 Patient feeling much better after nebulizer treatments and steroids. Pt appears to be in metabolic alkalosis and was given one time dose of Diamox. (3) Nicotine dependence: Code(s): F17.200 - Nicotine dependence, unspecified, uncomplicated Status: Chronic Assessment and Plan: The patient stated that she is down to a couple cigarettes a day and she is trying to wean herself off of cigarettes. Reinforce smoking cessation Subjective Date/time seen: 08/13/22 14:11 Interval history: Patient sitting on the side of the bed and doing well. Patient states that her shortness of breath has much improved. Patient does have chronic cough with sputum production that is now added baseline. Patient does not wear oxygen at home has been weaned off. Patient denies chest pain, dizziness, headache, heart palpitations, nausea and vomiting. Patient is feeling much better and back to herself. Review of Systems Review of Systems: All systems reviewed & are unremarkable except as noted in HPI and below Exam Narrative: GENERAL: Comfortable, no acute distress HENMT: moist mucous membranes EYES: EOM intact b/l NECK: no lymphadenopathy RESPIRATORY: clear to auscultation CARDIO: RRR GI: soft, nontender, bowel sounds present SKIN: no rashes EXTREMITIES: no edema, redness or tenderness Objective Data Vital Signs Vital Signs: Vital Signs - 24 hr 08/12/22 14:26 08/12/22 14:28 08/12/22 15:20 Temperature Pulse Rate 113 H Respiratory Rate 16 Blood Pressure 121/75 Pulse Oximetry 97 98 Oxygen Delivery Nasal Cannula Oxygen Flow Rate 2 08/12/22 15:30 08/12/22 15:31 08/12/22 15:46 Temperature Pulse Rate Respiratory Rate Blood Pressure 133/82 Pulse Oximetry 100 100 96 Oxygen Delivery Oxygen Flow Rate 08/12/22 15:47 08/12/22 16:00 08/12/22 16:01 Temperature Pulse Rate Respiratory Rate Blood Pressure 136/91 H 138/83 Pulse Oximetry 95 98 98 Oxygen Delivery Oxygen Flow Rate 08/12/22 16:15 08/12/22 16:16 08/12/22 16:30 Temperature Pulse Rate Respiratory Rate Blood Pressure 145/76 H Pulse Oximetry 99 98 99 Oxygen Delivery Oxygen Flow Rate 08/12/22 16:31 08/12/22 16:46 08/12/22 17:01 Temperature Pulse Rate Respiratory Rate Blood Pressure 134/75 142/71 H 137/75 Pulse Oximetry 98 98 100 Oxygen Delivery Oxygen Flow Rate 08/12/22 18:46 08/12/22 20:11 08/12/22 20:15 Temperature Pulse Rate 106 H Respiratory Rate 20 Blood Pressure Pulse Oximetry 97 96 Oxygen Delivery Nasal Cannula Nasal Cannula Oxygen Flow Rate 1 1 08/12/22 20:28 08/12/22 22:00 08/12/22 20:00 Temperature 96.1 F L Pulse Rate 108 H 97 Respiratory Rate 20 16 Blood Pressure 132/75 Pulse Oximetry 97 98 Oxygen Delivery
[2022-08-13] MEDS: acetaZOLAMIDE SODIUM FOR INJ 500 MG VIAL IV PUSH (15:23)
[2022-08-13] MEDS: methylPREDNISolone SOD SUCC 40 MG VIAL IV PUSH (20:00)
[2022-08-14] VITALS (10 sets, daily range): BP systolic 127–132; BP diastolic 77–84; PULSE 73–104; RESP 16–20; TEMP 36.1–36.8; O2SAT 93–96
--- NOTE | 2022-08-14 | ECHO_ITS ---
Patient Info Name: Stefanie Raymundo Age: 72 years : 1950 Gender: Female Ht: 65 in Wt: 139 lbs BSA: 1.71 m2 BP: 127 / 77 mmHg Technical Quality: Good Exam Date: 08/14/2022 11:46 AM Exam Location: [facility] Pulmonary Patient Status: Inpatient Admit Date: 08/13/2022 Staff Ordering Physician: Maria Del Carmen Merritt PA-C Supervisor [employer]: Jaqueline Patel RDCS Attending Provider: Jaki Seay MD Referring Physician: René SANDERS; Exam Type: CA echo doppler color flow Study Info Indications I50.20 - Unspecified systolic (congestive) heart failure Complete two-dimensional, color flow and Doppler transthoracic echocardiogram is performed. Summary 1. Complete two-dimensional, color flow and Doppler transthoracic echocardiogram is performed. 2. Left ventricular chamber dimension is normal. 3. Left ventricular systolic function is normal, estimated at 60-65%. 4. There is mild concentric increased left ventricular wall thickness. 5. The left ventricular diastolic function is grade I diastolic dysfunction. 6. E/e' 9 is minimally elevated. 7. There is mild aortic valve sclerosis. 8. No pulmonary hypertension, estimated pulmonary arterial systolic pressure is 32 mmHg. 9. There is trace pulmonic regurgitation. 10. There is trivial pericardial effusion. Left Ventricle E/e' 9 is minimally elevated. Left ventricular chamber dimension is normal. Left ventricular systolic function is normal, estimated at 60-65%. There is mild concentric increased left ventricular wall thickness. The left ventricular diastolic function is grade I diastolic dysfunction. Right Ventricle Right ventricular systolic function is normal and with normal TAPSE 2.4 cm. Right ventricular chamber dimension is normal. Left Atria Left atrial chamber dimension is normal. Right Atria Right atrial chamber dimension is normal. Aortic Valve The aortic valve is trileaflet. There is mild aortic valve sclerosis. There is no aortic valve stenosis. There is no aortic valve regurgitation. Pulmonic Valve There is trace pulmonic regurgitation. Mitral Valve There is no mitral valve stenosis. There is no mitral valve regurgitation. Tricuspid Valve There is no tricuspid valve regurgitation. No pulmonary hypertension, estimated pulmonary arterial systolic pressure is 32 mmHg. Pericardium/Pleural There is trivial pericardial effusion. Inferior Vena Cava Normal inferior vena cava with >50% collapse upon inspiration consistent with normal right atrial pressure, 5 mmHg. Aorta The aortic root size at the sinus of Valsalva is normal. Left Ventricular Outflow Tract Name Value Normal LVOT 2D LVOT Diameter 1.8 cm LVOT Doppler LVOT Peak Gradient 4 mmHg LVOT Mean Gradient 2 mmHg LVOT VTI 18 cm LVOT VTI/AV VTI Ratio 1.1 LVOT Stroke Volume 48 ml LVOT CO 4.3 l/min LVOT CI 2.5 l/min/m2 Pulmonic Valve Name Value Normal ---------
[2022-08-14] MEDS: LEVALBUTEROL NEB 1.25 MG/3 ML 0.63 MG INHALATION ×2 (07:00→13:00)
[2022-08-14] MEDS: FLUTICASONE/UMECLIDIN/VILANTER 100-62.5-25 MCG ELLIPTA 1 PUFF INHALATION (07:00)
[2022-08-14] MEDS: IPRATROPIUM BR 0.02% INH SOLN 0.5 MG/2.5 ML VIAL INHALATION ×2 (07:00→13:00)
[2022-08-14 07:26] LABS: Basophils Percent Auto 0.1 % (0.2-1.2); Eosinophils Percent Auto 0.1 % (0-4.4); Hematocrit 40.7 % (37.0-47.0); Hemoglobin 13.6 g/dL (12.0-15.0); Immature Granulocyte Absolute 0.17 K/mm3 (0.00-0.031); Immature Granulocyte Percent A 1.1 % (0-0.5); Lymphocytes Absolute Auto 0.85 K/mm3 (0.9-3.2); Lymphocytes Percent Auto 5.6 % (18.3-44.2); Mean Corpuscular HGB Conc 33.4 g/dl (32-36); Mean Corpuscular Hemoglobin 33.1 pg (26-34); Mean Platelet Volume 10.3 fl (7.4-10.4); Monocytes Absolute Auto 0.5 K/mm3 (0.1-0.6); Monocytes Percent Auto 3.5 % (2.6-8.5); Neutrophils Absolute Auto 13.5 K/mm3 (1.3-6.7); Neutrophils Percent Auto 89.6 % (45.5-73.1); Platelet Count Result 199 k/mm3 (150-375); Red Blood Count 4.11 M/mm3 (4.2-5.4); Red Cell Distribution Width 12.5 % (11.5-14.5); White Blood Count 15.1 K/mm3 (4.5-10.0)
[2022-08-14 07:31] LABS: Alanine Aminotransferase 30 U/L (6-35); Albumin Level 3.9 g/dL (3.5-5.1); Alkaline Phosphatase 102 U/L (38-126); Anion Gap 6 mmol/L (8-16); Aspartate Amino Transferase 36 U/L (14-36); Bilirubin,Total 0.6 mg/dL (0.2-1.3); Blood Urea Nitrogen 18 mg/dL (7-17); Calcium 9.4 mg/dL (8.4-10.2); Carbon Dioxide 29 mmol/L (22-30); Chloride 99 mmol/L (98-107); Estimated CRCL calculation 57 ml/min; Estimated Glomerular Filt Rate > 60; Glucose 122 mg/dL (65-110); Potassium 3.1 mmol/L (3.4-5.0); Sodium 134 mmol/L (137-145)
[2022-08-14] MEDS: POTASSIUM CHLORIDE 20 MEQ PACKET (FOR LIQUID) 40 MEQ PO (09:09)
[2022-08-14] MEDS: ZINC SULFATE 220 MG CAPSULE PO (09:10)
[2022-08-14] MEDS: MAGNESIUM 13.5 MG TABLET (250 MG MAG GLUCONATE) PO (09:10)
[2022-08-14] MEDS: MULTIVITAMINS THERAPEUTIC TAB (*BKC) 1 TABLET PO (09:10)
--- NOTE | 2022-08-14 12:06 | PM.DS ---
DS: Admitting Diagnosis Discharge Date 08/14/22 Admitting Diagnosis COPD exacerbation, pneumonia DS: Discharge Diagnosis Discharge Diagnosis (1) Community acquired pneumonia: Qualifiers: Laterality: right Lung location: lower lobe of lung Qualified Code(s): J18.9 - Pneumonia, unspecified organism Code(s): J18.9 - Pneumonia, unspecified organism Status: Acute Assessment and Plan: patient presented to the ED with difficulty breathing / shortness of breath. X-ray found emphysema and pneumonia. azithromycin and Rocephin sputum and blood cultures are pending tailor antibiotics according to the cultures and sensitivities continue with nebulizer treatment (2) Acute exacerbation of chronic obstructive airways disease: Code(s): J44.1 - Chronic obstructive pulmonary disease with (acute) exacerbation Status: Acute Assessment and Plan: Patient presented with shortness of breath and difficulty breathing. X-ray showing emphysema pneumonia. Patient started on IV Solu-Medrol. Patient was admitted on 2 L of oxygen but this has been weaned down to room air now. Continue with nebulizer treatments. Continue with Trelegy. 08/13 Patient feeling much better after nebulizer treatments and steroids. Pt appears to be in metabolic alkalosis and was given one time dose of Diamox. Alkalosis resolved. (3) Nicotine dependence: Code(s): F17.200 - Nicotine dependence, unspecified, uncomplicated Status: Chronic Assessment and Plan: The patient stated that she is down to a couple cigarettes a day and she is trying to wean herself off of cigarettes. Reinforce smoking cessation DS: Summary Hospital Course Hospital Course: Is 72-year-old female with history of COPD and chronic productive cough that presented to the ED on 08/12/2022 due to not feeling well for the past 2 days. Patient has been having increased shortness of breath and unable to cough up her mucus. She typically wakes up every morning and has lots sputum production but she has been unable to do this lately. She is having shortness of breath with rest and exertion. Patient has not had any weight gain or lower leg edema. Chest x-ray revealed emphysema with new patchy airspace opacity in the right upper lung zone which is suspicious for pneumonia. Do started on azithromycin and ceftriaxone for pneumonia as well as steroids for COPD exacerbation. Blood gases revealed metabolic alkalosis. Patient did have an BNP of 9000. She did not appear to be fluid overloaded during her stay. DuoNeb started. Patient improved with IV steroids and antibiotics. Is recommended that patient get echo. Patient had an echo a month and half ago due to tachycardia which came back without concern. Would like to get a repeat echo. Patient is feeling back to baseline and would like to be discharged. Discussed with patient I would like her to get this echo and I will call her with the results if she is eager to be discharged. Will discharge patient on prednisone and azithromycin and cefdinir. Time Spent with Patient Time attestation: Total time spent providing and/or coordinating discharge services: Exam Narrative: GENERAL: Comfortable, no acute distress HENMT: moist mucous membranes EYES: EOM intact b/l NECK: no lymphadenopathy RESPIRATORY: clear to auscultation CARDIO: RRR GI: soft, nontender, bowel sounds present SKIN: no rashes EXTREMITIES: no edema, redness or tenderness DS: Data Data Completed and Pending Labs on day of discharge: Labs from last 24 hours 08/14/22 06:32 WBC 15.1 H RBC 4.11 L Hgb 13.6 Hct 40.7 MCV 99.0 MCH 33.1 MCHC 33.4 RDW 12.5 Plt Count 199 MPV 10.3 Immature Gran % (Auto) 1.1 H Neut % (Auto) 89.6 H Lymph % (Auto) 5.6 L [place] % (Auto) 3.5 Eos % (Auto) 0.1 Baso % (Auto) 0.1 L Lymph # (Auto) 0.85 L [place] # (Auto) 0.5 Eos # (Auto) 0.0 B
--- NOTE | 2022-08-18 06:28 | PC.NURSE ---
Blood cx are negative.
--- NOTE | 2023-02-17 09:59 | PC.NURSE ---
Blood cultures are negative.
== END 2022-08-14 16:00 | disposition home or self-care (01) | DRG 195 ==
LOC: ANHED 13:22 → ANH3MEDSUR 14:53
PROVIDERS: Admitting Provider Family Medicine; Emergency Provider Emergency Medicine; PCP Family Medicine; Visit Provider Internal Medicine Critical Care Medicine
DX: J18.9 Pneumonia, unspecified organism (principal); J43.9 Emphysema, unspecified; R09.02 Hypoxemia; I10 Essential (primary) hypertension; F17.210 Nicotine dependence, cigarettes, uncomplicated; Z20.822 Contact with and (suspected) exposure to COVID-19; Z90.49 Acquired absence of other specified parts of digestive tract
CPT/HCPCS: 36415; 36600; 71045; 76705; 80053; 82375; 82805; 83050; 83605; 83735; 83880; 84484; 85025; 87040; 87070; 87205; 87637; 93005; 93306; 94640; 96361; 96365; 96366; 96375; 96376; 99285; A9270; G0378; J0456; J0696; J1120; J2920; J2930; J7040

== ENCOUNTER 2022-11-29 12:34 | Outpatient (CLI) | payer OTHER, SELFPAY ==
--- NOTE | ~2022-11-29 | XR_ITS ---
XR ribs RT 2V w CXR 2V DATE: 11/29/2022 13:02 INDICATION: Right-sided chest pain, right rib pain, dyspnea. TECHNIQUE: PA and lateral chest. 3 views of the right ribs. COMPARISON: 08/12/[address] lung screening 03/24/2022 PA and lateral chest FINDINGS: There is an old prominent discoid atelectasis or scarring in the right upper lobe since alfonso or examinations. The lungs are hyperinflated consistent with COPD. No pulmonary consolidation, pleura l effusion, pulmonary vascular congestion or pneumothorax is detected. Heart size is normal. There is thoracic aortic calcification and mild unfolding. Osteopenia. Levoscoliosis of the thoracic spine and lumbar dextroscoliosis. There is a subtle apparently recent there are anterior right anterior Displaced ninth rib fracture. Old healed posterolateral right eighth and ninth and probably 10th rib fracture deformities. IMPRESSION: Minimally displaced there are anterior right ninth rib likely recent fracture Old healed fractures of the posterolateral right eighth and ninth and probably 10th ribs Discoid scarring or atelectasis, right upper lobe COPD Aortic atherosclerosis Osteopenia Reviewed, dictated and finalized at location B. IMPRESSION: Minimally displaced there are anterior right ninth rib likely recen t fracture Old healed fractures of the posterolateral right eighth and ninth and probably 10th ribs Discoid scarring or atelectasis, right upper lobe COPD Aortic atherosclerosis Osteopenia
== END 2022-11-29 12:35 | disposition home or self-care (01) ==
LOC: CHSIMG 12:35
PROVIDERS: PCP Family Medicine; Visit Provider Family Medicine
DX: R07.89 Other chest pain (principal); S22.31XA Fracture of one rib, right side, initial encounter for closed fracture; R91.8 Other nonspecific abnormal finding of lung field; J44.9 Chronic obstructive pulmonary disease, unspecified; I70.0 Atherosclerosis of aorta; M85.89 Other specified disorders of bone density and structure, multiple sites
CPT/HCPCS: 71046; 71100

== ENCOUNTER 2022-11-30 19:01 | Emergency (ER) | payer OTHER, SELFPAY ==
--- NOTE | 2022-11-30 19:03 | ED.WEAKNESS ---
HPI - Weakness General Chief complaint: Weakness Stated complaint: weakness Time Seen by Provider: 11/30/22 19:02 Source: patient, family, EMS and RN notes reviewed Mode of arrival: EMS Limitations: no limitations History of Present Illness HPI Narrative: patient states that she just feels weak all over. She was at her primary care physician yesterday and told him that she thought she was dehydrated. They told her to drink more fluid at home. She comes in today because she continues to have weakness 3-4 days. She is an alcoholic and been drinking today. She is also was recently started on some folic acid, naltrexone and vitamin B1. She denies any fever chills. She denies any new vomiting or diarrhea. She denies any black stools. She denies any abdominal pain. MD Complaint: generalized weakness Onset (ago): day(s) (3-4) Duration: constant Location: generalized Migration: none Severity: moderate Relieving factors: none Exacerbating factors: none Associated symptoms: denies other symptoms Related Data Home Medications Medication Instructions Recorded Confirmed biotin 5,000 mcg disintegrating 10,000 mcg PO DAILY 07/26/22 11/30/22 tablet magnesium 250 mg tablet 250 mg PO DAILY 07/26/22 11/30/22 multivitamin (Daily Multi-Vitamin 1 tablet PO DAILY 07/26/22 11/30/22 tablet) zinc acetate 50 mg (zinc) capsule 50 mg PO DAILY 07/26/22 11/30/22 folic acid 1 mg tablet 1 mg PO DAILY 11/30/22 11/30/22 naltrexone 50 mg tablet 50 mg PO DAILY 11/30/22 11/30/22 Allergies Allergy/AdvReac Type Severity Reaction Status Date / Time mercury (elemental) Allergy Unknown Verified 08/12/22 11:36 Iodine and Iodide Containing AdvReac Rash Verified 08/12/22 18:20 Produc Review of Systems Review of Systems: All systems reviewed & are unremarkable except as noted in HPI and below PMFSH Past Medical History Medical History (Updated 11/30/22 @ 21:08 by Roger Chester MD) COPD (chronic obstructive pulmonary disease) Family hx of colon cancer Hypertension Surgical History Surgical History (Updated 08/12/22 @ 18:12 by Klarissa Devine NP) H/O colonoscopy with polypectomy H/O tubal ligation History of appendectomy History of colon surgery cecum S/P tonsillectomy Family History Family History Father Colon cancer Social History Social History (Updated 08/12/22 @ 18:05 by Klarissa Devine NP) Social History: She lives with a roommate. She is and has 4 children. 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 code status full code Smoking packs per day: 1 Smoking cigarettes per day: 20.0 Years smoked: 50 Smoking pack-years: 50.00 Smoking status: Current every day smoker Tobacco type: cigarettes Alcohol intake: current Drinks per week: 28 Alcohol use details: 4 Beers/Night Substance use: never Substance use type: does not use Lack of Transportation: No Lack of Food: Never True Current Housing: I Have Housing Concerned About Future Housing: No Difficulty Paying Gas/Electric Bills: No Difficulty Paying for Meds: No Currently Unemployed: No Education: Don't Know Difficulty w/ Childcare or Family Care: No Occupation/Education: occupation 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/education 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
[2022-11-30 19:31] VITALS: BP 167/85; PULSE 80; RESP 24; TEMP 37.1; O2SAT 95
[2022-11-30 19:33] LABS: Basophils Absolute Auto 0.05 K/mm3 (0.00-0.10); Basophils Percent Auto 1.1 % (0.0-1.0); Eosinophils Absolute Auto 0.24 K/mm3 (0.02-0.50); Eosinophils Percent Auto 5.1 % (1.0-6.0); Hematocrit 41.8 % (35.0-42.0); Hemoglobin 14.4 g/dL (11.7-13.8); Immature Granulocyte Absolute 0.02 K/mm3 (0.00-0.00); Immature Granulocyte Percent A 0.4 % (0.0-0.0); Lymphocytes Absolute Auto 1.98 K/mm3 (1.10-4.50); Lymphocytes Percent Auto 41.9 % (18.0-42.0); Mean Corpuscular HGB Conc 34.4 g/dL (32.0-36.0); Mean Corpuscular Hemoglobin 33.7 pg (27.0-31.0); Mean Corpuscular Volume 97.9 fL (78.0-102.0); Mean Platelet Volume 9.4 fl (9.2-11.8); Monocytes Absolute Auto 0.49 K/mm3 (0.10-0.90); Monocytes Percent Auto 10.4 % (2.0-11.0); Neutrophils Percent Auto 41.1 % (50.0-70.0); Platelet Count Result 141 K/mm3 (150-420); Red Blood Count 4.27 M/mm3 (4.20-5.40); Red Cell Distribution Width 13.1 % (11.6-14.4); White Blood Count 4.7 K/mm3 (4.8-10.8)
[2022-11-30 19:38] LABS: Appearance Urine Clear (Clear); Bilirubin Urine Negative (Negative); Blood Urine Negative (Negative); Color Urine Yellow (Yellow); Glucose Urine UA Negative (Negative); Ketones Urine Negative (Negative); Leukocyte Esterase Ur Negative LEU/UL (Negative); Nitrate Urine Negative (Negative); Protein Urine Negative (Negative); Specific Grav Ur 1.025 (1.010-1.020); pH Urine 5.5 (5.0-8.0)
[2022-11-30 19:39] LABS: Add Urine Microscopic? NO
[2022-11-30 19:48] LABS: Alanine Aminotransferase 86 U/L (14-59); Albumin Level 3.5 g/dL (3.4-5.0); Alkaline Phosphatase 146 U/L (46-116); Anion Gap 10 mmol/L (8-16); Aspartate Amino Transferase 154 U/L (15-37); Bilirubin,Total 0.5 mg/dL (0.00-1.00); Blood Urea Nitrogen 10 mg/dL (7-18); Calcium 8.8 mg/dL (8.5-10.1); Carbon Dioxide 30 mmol/L (21-32); Chloride 102 mmol/L (98-108); Estimated CRCL calculation 75 ml/min; Estimated Glomerular Filt Rate > 60; Glucose 101 mg/dL (70-99); Magnesium 1.4 mg/dL (1.8-2.4); Osmolality Calculated 293 mOsm/kg (285-295); Potassium 3.1 mmol/L (3.5-5.1); Sodium 142 mmol/L (136-145); Total Protein 6.9 g/dL (6.4-8.2)
[2022-11-30 19:49] LABS: CRP < 0.5 mg/dL (0.0-0.9)
[2022-11-30 20:00] VITALS: BP 148/79; PULSE 81; RESP 22; O2SAT 93
[2022-11-30 20:22] LABS: Influenza A QL RT-PCR Negative (Negative); Influenza B QL RT-PCR Negative (Negative); SARS-CoV-2 RNA PCR Negative (Negative)
[2022-11-30 20:30] VITALS: BP 152/80; PULSE 79; RESP 18; O2SAT 90
[2022-11-30] MEDS: SODIUM CHLORIDE 0.9% IV 1,000 ML 999 ML IV CONT (20:39)
[2022-11-30] MEDS: LORazepam INJ (*CRX) 2 MG/ML VIAL 0.5 MG IV PUSH (21:11)
[2022-11-30 21:30] VITALS: BP 176/88; PULSE 91; RESP 20; O2SAT 90
== END 2022-11-30 21:45 | disposition home or self-care (01) ==
PROVIDERS: Emergency Provider Emergency Medicine; PCP Family Medicine
DX: E86.0 Dehydration (principal); F10.20 Alcohol dependence, uncomplicated; J44.9 Chronic obstructive pulmonary disease, unspecified; I10 Essential (primary) hypertension; F17.210 Nicotine dependence, cigarettes, uncomplicated; Y90.9 Presence of alcohol in blood, level not specified
CPT/HCPCS: 36415; 80053; 81003; 83735; 85025; 86140; 87636; 96361; 96374; 99284; J2060; J7030

== ENCOUNTER 2022-12-15 17:08 | Outpatient (CLI) | payer OTHER, SELFPAY ==
--- NOTE | ~2022-12-15 | XR_ITS ---
AP and lateral views of the right hip Clinical history: Pain Findings: No acute fracture or dislocation is seen. Osseous alignment is anatomic. Right hip joint is unremarkable. Soft tissues are unremarkable. Impression: No significant abnormality is seen. Reviewed, dictated and finalized at location M. Impression: No significant abnormality is seen.
--- NOTE | ~2022-12-15 | XR_ITS ---
Clinical Indication: Right-sided chest pain PA and lateral views of the chest: Comparison: 11/29/2022 Findings: Stable right upper lobe probable scarring. Lungs are otherwise clear.. Cardiomediastinal s ilhouette is within normal limits. Bones and soft tissues are unremarkable. Impression: Stable presumed right upper lobe scarring. Rib fracture seen on recent exam from 11/29/2022 is poorly seen on the current exam. Reviewed, dictated and finalized at location . Impression: Stable presumed right upper lobe scarring. Rib fracture seen on recent exam from 11/29/2022 is poorly seen on the current e xam.
== END 2022-12-15 17:09 | disposition home or self-care (01) ==
LOC: CHSIMG 17:10
PROVIDERS: PCP Family Medicine; Visit Provider Family Medicine
DX: R07.89 Other chest pain (principal); M25.551 Pain in right hip; R91.8 Other nonspecific abnormal finding of lung field; S22.39XA Fracture of one rib, unspecified side, initial encounter for closed fracture
CPT/HCPCS: 71046; 73502

== ENCOUNTER 2023-02-10 14:46 | Outpatient (CLI) | payer OTHER, SELFPAY ==
--- NOTE | ~2023-02-10 | XR_ITS ---
EXAMINATION: XR chest 2V DATE: 02/10/2023 15:31 INDICATION: Chronic cough. Chronic obstructive pulmonary disease. TECHNIQUE: Frontal and lateral views of the chest were obtained. COMPARISON: Chest 2 views 12/15/2022 FINDINGS: There are lucencies in the lungs, consistent with emphysema. There are airspace opacities i n right upper lobe. Calcified pulmonary nodules and calcified mediastinal lymph nodes are consistent with old granulomatous disease. No pleural effusion or pneumothorax. The heart size is normal. There are old healed right fractures. IMPRESSION: 1. Worsened airspace opacities in right lung upper lobe, consistent with pneumonia versus malignancy. Noncontrast chest CT is recommended. Reviewed, dictated and finalized at location E. E MAN IMPRESSION: 1. Worsened airspace opacities in right lung upper lobe, consistent with pneumo esthela versus malignancy. Noncontrast chest CT is recommended.
[2023-02-10 15:25] LABS: Appearance Urine Clear (Clear); Bilirubin Urine 2+ (Negative); Blood Urine Negative (Negative); Glucose Urine UA Negative (Negative); Hematocrit 40.6 % (35.0-42.0); Hemoglobin 14.6 g/dL (11.7-13.8); Ketones Urine Negative (Negative); Leukocyte Esterase Ur Trace (Negative); Mean Corpuscular Hemoglobin 36.7 pg (27.0-31.0); Mean Platelet Volume 9.8 fl (9.2-11.8); Nitrate Urine Negative (Negative); Platelet Count Result 221 K/mm3 (150-420); Protein Urine Trace (Negative); Red Blood Count 3.98 M/mm3 (4.20-5.40); White Blood Count 8.8 K/mm3 (4.8-10.8)
[2023-02-10 15:35] LABS: Add Urine Microscopic? YES; Bacteria Urine 1+ /hpf; Color Urine Dark Yellow (Yellow); RBC Urine None seen /hpf (0-2); Squamous Epithelial Cell Urine Few /hpf (Few); WBC Urine 0-3 /hpf (0-3)
[2023-02-10 15:43] LABS: Total Cells Counted 100
[2023-02-10 15:44] LABS: Band Neutrophils Percent 0 % (0-6); Basophils Percent Manual 0 % (0-1); Eosinophils Percent Manual 0 % (1-6); Lymphocytes Absolute Manual 3.25 K/mm3 (1.1-4.5); Lymphocytes Percent Manual 37 % (18-44); Monocytes Absolute Manual 0.79 K/mm3 (0.1-0.90); Monocytes Percent Manual 9 % (3-9); Neutrophils Absolute Manual 4.75 K/mm3 (1.7-7.2); Neutrophils Percent Manual 54 % (46-73); Platelet Estimate Adequate (Adequate)
[2023-02-10 15:49] LABS: Alanine Aminotransferase 92 U/L (14-59); Albumin Level 2.8 g/dL (3.4-5.0); Alkaline Phosphatase 144 U/L (46-116); Anion Gap 8 mmol/L (8-16); Aspartate Amino Transferase 142 U/L (15-37); Bilirubin,Total 1.5 mg/dL (0.00-1.00); Blood Urea Nitrogen 7 mg/dL (7-18); Calcium 9.1 mg/dL (8.5-10.1); Carbon Dioxide 36 mmol/L (21-32); Chloride 91 mmol/L (98-108); Creatine Kinase 39 U/L (26-192); Estimated Glomerular Filt Rate > 60; Glucose 88 mg/dL (70-99); Osmolality Calculated 277 mOsm/kg (285-295); Sodium 135 mmol/L (136-145); Total Protein 6.3 g/dL (6.4-8.2)
[2023-02-10 15:52] LABS: Potassium 2.3 mmol/L (3.5-5.1)
[2023-02-10 16:00] LABS: Influenza A QL RT-PCR Negative (Negative); Influenza B QL RT-PCR Negative (Negative); SARS-CoV-2 RNA PCR Negative (Negative)
== END 2023-02-10 14:47 | disposition home or self-care (01) ==
LOC: CHSLAB 14:48
PROVIDERS: PCP Family Medicine; Visit Provider Family Medicine
DX: R19.7 Diarrhea, unspecified (principal); M79.10 Myalgia, unspecified site; R05.3 Chronic cough; R82.998 Other abnormal findings in urine; R91.8 Other nonspecific abnormal finding of lung field
CPT/HCPCS: 36415; 71046; 80053; 81001; 82550; 85025; 87077; 87086; 87088; 87186; 87636

== ENCOUNTER 2023-02-10 17:24 | Inpatient (IN) | payer OTHER, MEDICARE, SELFPAY ==
[2023-02-10] VITALS (7 sets, daily range): BP systolic 117–134; BP diastolic 69–86; PULSE 88–96; RESP 15–27; TEMP 36.5–37.2; O2SAT 92–98; BMI 23.1
--- NOTE | ~2023-02-10 | CT_ITS ---
EXAMINATION: CT diagnostic chest wo con DATE: 02/11/2023 11:16 INDICATION: Right upper lobe opacity TECHNIQUE: Computed tomography (CT) of the chest was performed without intravenous contrast. The dose -length product (DLP) was 133.53 mGy-cm. Automated exposure control and iterative reconstruction tech nique were employed. COMPARISON: 05/20/2022, 05/19/2021 FINDINGS: There is moderate emphysema. There are airspace opacities in the right upper lobe with some areas of thick walled cavitation. No pleural effusion or pneumothorax. The heart size is normal. The re is calcified coronary artery atherosclerosis. There is enlargement of the main and central pulmona ry arteries, consistent with pulmonary hypertension. No pathologically enlarged thoracic lymph nodes are identified. The liver is diffusely low in attenuation when compared with the spleen, consistent w ith hepatic steatosis. Punctate calcifications in an otherwise normal spleen likely represent healed granulomatous disease. 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 There is mild t horacic spondylosis. IMPRESSION: 1. Right upper lobe airspace opacities, some demonstrating thick-walled cavitation, likely pneumonia. Recommend imaging follow-up to resolution after appropriate therapy with biopsy if findings do not r esolve. Reviewed, dictated and finalized at location B. ERS SALESPERSON IMPRESSION: 1. Right upper lobe airspace opacities, some demonstrating thick-walled cavitat ion, likely pneumonia. Recommend imaging follow-up to resolution after appropri ate therapy with biopsy if findings do not resolve.
--- NOTE | 2023-02-10 17:44 | ECG_ITS ---
Measurements Intervals [place] Rate: 83 P: 77 MO: 157 QRS: 54 QRSD: 84 T: 62 QT: 368 QTc: 433 Interpretive Statements SINUS RHYTHM DELAYED PRECORDIAL R/S TRANSITION MINIMAL Q WAVES- INFERIOR LEADS BASELINE ARTIFACT- I, II, III, AVR, AVL, AVF, V1, V5-V6 BORDERLINE ECG COMPARED TO ECG 08/12/2022 12:02:27 SINUS RHYTHM NOW PRESENT Electronically Signed On 02-10-2023 18:53:03 SERVICE UNIT OPERATOR by Chico Roman D.O.
[2023-02-10] MEDS: POTASSIUM BICARBONATE 25 MEQ TABEF 50 MEQ PO (17:58)
[2023-02-10] MEDS: THIAMINE HCL INJ 100 MG, FOLIC ACID 1 MG, MULTIVITAMINS-12 INJ 10 ML, MAGNESIUM SULFATE... 1013.2 MG IV CONT (18:14)
[2023-02-10 18:20] LABS: CRP 3.7 mg/dL (0.0-0.9)
--- NOTE | 2023-02-10 18:27 | ED.WEAKNESS ---
HPI - Weakness General Chief complaint: Weakness Stated complaint: low potassium Source: patient Mode of arrival: ambulatory Limitations: no limitations History of Present Illness HPI Narrative: This is a 73-year-old female with a history of COPD, chronic alcohol abuse and cigarette / tobacco abuse presents from her primary care physician's office with generalized weakness, the patient's primary and performed chest x-ray and blood work which showed potassium level of 2.3. Patient has a history of COPD currently there is no cough or congestion no shortness of breath no audible wheezing, there is no fever chills her vitals are stable O2 sats at 95%. There is no nausea vomiting no abdominal pain no flank pain no dysuria. Patient denies palpitations, denies any shortness of breath or chest pain. MD Complaint: generalized weakness Onset (ago): day(s) Duration: constant Location: generalized Related Data Home Medications Medication Instructions Recorded Confirmed No Home Medications 02/10/23 02/10/23 Allergies Allergy/AdvReac Type Severity Reaction Status Date / Time mercury (elemental) Allergy Unknown Verified 02/10/23 17:40 Iodine and Iodide Containing AdvReac Rash Verified 02/10/23 17:40 Produc Review of Systems Review of Systems: All systems reviewed & are unremarkable except as noted in HPI and below PMFSH Past Medical History Medical History COPD (chronic obstructive pulmonary disease) Family hx of colon cancer History of bruising easily Hypertension Surgical History Surgical History H/O colonoscopy with polypectomy H/O tubal ligation History of appendectomy History of colon surgery cecum History of tooth extraction S/P tonsillectomy Family History Family History Father Colon cancer Social History Social History Social History: She lives with a roommate. She is and has 4 children. 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 code status full code Smoking packs per day: 1 Smoking cigarettes per day: 20.0 Years smoked: 50 Smoking pack-years: 50.00 Smoking status: Current every day smoker Tobacco type: cigarettes Alcohol intake: current Drinks per week: 28 Alcohol use details: 4 Beers/Night Substance use: never Substance use type: does not use Lack of Transportation: No Lack of Food: Never True Current Housing: I Have Housing Concerned About Future Housing: No Difficulty Paying Gas/Electric Bills: No Difficulty Paying for Meds: No Currently Unemployed: No Education: Don't Know Difficulty w/ Childcare or Family Care: No Occupation/Education: occupation 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 Gender identity (if verbalized by the patient): Female Spiritual care concerns: No Agree to blood products: Yes Exam Const: General: no acute distress HENMT: Head: normal to inspection Eyes: Conjunctivae: conjunctivae normal Neck: Neck: normal visual inspection, no lymphadenopathy and no meningeal signs Chest: Chest palpation & inspection: normal inspection of the chest Resp: Effort & Inspection: normal respiratory effort Auscultation: clear to auscultation bilaterally Cardio: Rate: regular rate Rhythm: regular rhythm GI: GI Palp: Yes Soft to palpation Auscultation: normal bowel sounds : General: Yes bladder normal to palpation Back/Spine/Pelvis: Back: no CVA tenderness Skin: General skin exam: normal color Rashes: no rashes Neuro: General: patient oriented x3 Cranial nerves: Yes Nystagmus not present Speech: normal speech Extrem: General: normal to inspection and no clubbing, cyanosis or edema Psych: Mental Status: mental status grossly normal Affect:
[2023-02-10 18:29] LABS: Lactic Acid Reflex 3.3 mmol/L (0.4-2.0)
[2023-02-10 19:04] LABS: Reflex Lactic Acid Yes or No Add Lactic
[2023-02-10 19:45] LABS: Lactic Acid 2.8 mmol/L (0.4-2.0)
--- NOTE | 2023-02-10 19:52 | ADMGEN ---
This patient, Stefanie Raymundo, was admitted to 2nd Floor Room 205-1. Patient oriented to hospital policies and general routines including ID bracelet, bed and alarms, visiting hours, pain management, procedures, bathroom and other care routines, personal items, smoking policy, room service/diet, and visiting hours. Information on how to activate the Rapid Response Team has been discussed. Patient are encouraged to report perceived risks to care and to ask questions if they do not understand what they are told or what they should do.
[2023-02-10] MEDS: SODIUM CHLORIDE 0.9% IV 1,000 ML 100 ML IV CONT (20:14)
[2023-02-11] VITALS (10 sets, daily range): BP systolic 148–158; BP diastolic 82–89; PULSE 82–114; RESP 14–18; TEMP 36.6–37.1; O2SAT 90–100
[2023-02-11 05:35] LABS: Hemoglobin 12.8 g/dL (11.7-13.8); Mean Corpuscular HGB Conc 35.6 g/dL (32.0-36.0); Mean Corpuscular Hemoglobin 36.7 pg (27.0-31.0); Mean Corpuscular Volume 103.2 fL (78.0-102.0); Mean Platelet Volume 9.7 fl (9.2-11.8); Platelet Count Result 173 K/mm3 (150-420); Red Blood Count 3.49 M/mm3 (4.20-5.40); Red Cell Distribution Width 12.3 % (11.6-14.4); White Blood Count 7.3 K/mm3 (4.8-10.8)
[2023-02-11 05:51] LABS: Band Neutrophils Percent 0 % (0-6); Basophils Percent Manual 0 % (0-1); Eosinophils Percent Manual 0 % (1-6); Lymphocytes Absolute Manual 1.09 K/mm3 (1.1-4.5); Lymphocytes Percent Manual 15 % (18-44); Monocytes Absolute Manual 1.02 K/mm3 (0.1-0.90); Monocytes Percent Manual 14 % (3-9); Neutrophils Absolute Manual 5.18 K/mm3 (1.7-7.2); Neutrophils Percent Manual 71 % (46-73); Platelet Estimate Adequate (Adequate)
[2023-02-11 05:54] LABS: Alanine Aminotransferase 67 U/L (14-59); Albumin Level 2.3 g/dL (3.4-5.0); Alkaline Phosphatase 121 U/L (46-116); Anion Gap 6 mmol/L (8-16); Aspartate Amino Transferase 117 U/L (15-37); Bilirubin,Total 1.5 mg/dL (0.00-1.00); Blood Urea Nitrogen 6 mg/dL (7-18); Calcium 8.2 mg/dL (8.5-10.1); Carbon Dioxide 34 mmol/L (21-32); Chloride 97 mmol/L (98-108); Estimated CRCL calculation 69 ml/min; Estimated Glomerular Filt Rate > 60; Glucose 86 mg/dL (70-99); Magnesium 1.3 mg/dL (1.8-2.4); Osmolality Calculated 280 mOsm/kg (285-295); Sodium 137 mmol/L (136-145); Total Protein 5.5 g/dL (6.4-8.2)
[2023-02-11 05:55] LABS: Potassium 2.4 mmol/L (3.5-5.1)
--- NOTE | 2023-02-11 06:15 | PC.NURSE ---
Raul Blankenship NP contacted regarding pt's low potassium value of 2.4. New orders were given for potassium chloride 60 meq x1, potassium chloride 40 meq x1 and stool for c-diff. Orders were recieved and noted.
[2023-02-11] MEDS: SODIUM CHLORIDE 0.9% IV 1,000 ML 100 ML IV CONT (06:23)
[2023-02-11] MEDS: POTASSIUM CHLORIDE 20 MEQ ER TABLET 60 MEQ PO (06:23)
[2023-02-11] MEDS: KCL 20 MEQ/SW 100 ML 100 ML 50 MEQ IVPB ×2 (06:25→09:52)
--- NOTE | 2023-02-11 07:06 | PM.IMHP ---
H&P: HPI History of Present Illness Date/Time: 02/11/23 07:06 Chief Complaint: Weakness, diarrhea, UTI, low potassium Narrative: This is a 73-year-old female patient chronic smoker chronic alcohol user with a prior history of COPD and hypertension not currently taking any medications who was admitted to the hospital for profound hypokalemia in the setting of weakness and ongoing diarrhea. Patient was seen at primary care office yesterday had labs and urine. Urinalysis indicated urinary tract infection. A UA and culture was collected in our system before patient received antibiotics by the emergency department. She received IV Rocephin which we will continue. Additionally, blood work showed potassium of 2.3 so patient was sent for admission for hypokalemia and UTI with weakness. Patient reports that she has had ongoing diarrhea for about the last 2-3 weeks and nursing staff notes 5 episodes of diarrhea in the previous 12 hours. We will collect C diff sample though her risk for C diff is quite low. Suspect that she has lost significant amount of body stores of potassium through continuous diarrhea. Patient received IV and oral replacement in the ER with no essential improvement, 2.4 on morning labs. Additionally, magnesium noted to be low at 1.3. Patient does have a history of alcohol abuse and states that she has not had much of an appetite and not eating well for about the last 2-3 weeks also. IV magnesium ordered, IV potassium and oral potassium ordered. Patient was requesting discharge this afternoon but I explained to her the importance of correcting electrolytes and the likelihood requiring extensive replacement being needed due to ongoing losses. She expressed understanding and agreement with remaining admitted. Admission status changed to inpatient due to continued profound hypokalemia. Patient was seen eating breakfast and tolerating it well. Review of Systems Review of Systems: All systems reviewed & are unremarkable except as noted in HPI and below PMFSH Past Medical History Medical History COPD (chronic obstructive pulmonary disease) Family hx of colon cancer History of bruising easily Hypertension Surgical History Surgical History H/O colonoscopy with polypectomy H/O tubal ligation History of appendectomy History of colon surgery cecum History of tooth extraction S/P tonsillectomy Family History Family History Father Colon cancer Social History Social History Social History: She lives with a roommate. She is and has 4 children. She works for [employer] in [place]. code status full code Smoking packs per day: 1 Smoking cigarettes per day: 20.0 Years smoked: 59 Smoking pack-years: 59.00 Smoking status: Current every day smoker Tobacco type: cigarettes Alcohol intake: current Drinks per week: 14 Alcohol use details: 4 Beers/Night Substance use: never Substance use type: does not use Lack of Transportation: No Lack of Food: Never True Current Housing: I Have Housing Concerned About Future Housing: No Difficulty Paying Gas/Electric Bills: No Difficulty Paying for Meds: No Currently Unemployed: No Education: High School Diploma/GED Difficulty w/ Childcare or Family Care: No Occupation/Education: occupation 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
[2023-02-11] MEDS: MAGNESIUM SULF 4 GM/WATER100ML 4 GM/100 ML BAG IVPB (08:38)
[2023-02-11] MEDS: NICOTINE (*PBKC) 21 MG PATCH 1 PATCH TRANSDERM (08:39)
[2023-02-11] MEDS: THIAMINE HCL 200 MG/2 ML VIAL 100 MG IV PUSH (08:40)
[2023-02-11] MEDS: THERAPEUTIC MULTIVITAMINS/MINERALS TAB (*BKC) 1 TABLET PO (08:40)
[2023-02-11] MEDS: FOLIC ACID 1 MG TABLET PO (08:40)
[2023-02-11] MEDS: LOPERAMIDE HCL 2 MG CAPSULE 4 MG PO (08:40)
[2023-02-11] MEDS: LOPERAMIDE HCL 2 MG CAPSULE PO ×3 (09:26→20:56)
[2023-02-11] MEDS: DOXYCYCLINE HYCLATE 100 MG TABLET PO ×2 (13:51→20:56)
[2023-02-11 16:21] LABS: Anion Gap 0 mmol/L (8-16); Blood Urea Nitrogen 5 mg/dL (7-18); Calcium 8.4 mg/dL (8.5-10.1); Carbon Dioxide 38 mmol/L (21-32); Chloride 98 mmol/L (98-108); Estimated CRCL calculation 64 ml/min; Estimated Glomerular Filt Rate > 60; Glucose 99 mg/dL (70-99); Magnesium 2.2 mg/dL (1.8-2.4); Osmolality Calculated 279 mOsm/kg (285-295); Potassium 3.4 mmol/L (3.5-5.1); Sodium 136 mmol/L (136-145)
[2023-02-11] MEDS: POTASSIUM CHLORIDE 20 MEQ ER TABLET PO (17:43)
[2023-02-11] MEDS: cefTRIAXone 2 GM/NS 100 ML 2 GM/100 ML BAG IVPB (17:44)
[2023-02-11] MEDS: IBUPROFEN 400 MG TABLET PO (20:56)
[2023-02-12] VITALS: BP 154/96; PULSE 94; RESP 17; TEMP 36.4; O2SAT 96
[2023-02-12 04:00] VITALS: BP 158/99; PULSE 87; PULSE 92; RESP 17; TEMP 36.4; O2SAT 95
[2023-02-12 05:15] LABS: Hematocrit 36.7 % (35.0-42.0); Hemoglobin 12.7 g/dL (11.7-13.8); Mean Corpuscular HGB Conc 34.6 g/dL (32.0-36.0); Mean Corpuscular Hemoglobin 36.4 pg (27.0-31.0); Mean Corpuscular Volume 105.2 fL (78.0-102.0); Platelet Count Result 165 K/mm3 (150-420); Red Blood Count 3.49 M/mm3 (4.20-5.40); Red Cell Distribution Width 12.3 % (11.6-14.4)
[2023-02-12 05:33] LABS: Albumin Level 2.3 g/dL (3.4-5.0); Anion Gap 4 mmol/L (8-16); Blood Urea Nitrogen 4 mg/dL (7-18); Calcium 7.9 mg/dL (8.5-10.1); Carbon Dioxide 34 mmol/L (21-32); Chloride 100 mmol/L (98-108); Estimated CRCL calculation 71 ml/min; Estimated Glomerular Filt Rate > 60; Glucose 78 mg/dL (70-99); Magnesium 1.6 mg/dL (1.8-2.4); Osmolality Calculated 281 mOsm/kg (285-295); Phosphorus 2.1 mg/dL (2.6-4.7); Potassium 3.3 mmol/L (3.5-5.1); Sodium 138 mmol/L (136-145)
[2023-02-12 07:46] VITALS: PULSE 102
[2023-02-12 07:49] VITALS: BP 147/87; PULSE 102; RESP 20; TEMP 36.5; O2SAT 95; O2SAT 96
[2023-02-12] MEDS: POTASSIUM CHLORIDE 20 MEQ ER TABLET 40 MEQ PO (08:17)
[2023-02-12] MEDS: THIAMINE HCL 200 MG/2 ML VIAL 100 MG IV PUSH (08:19)
[2023-02-12] MEDS: DOXYCYCLINE HYCLATE 100 MG TABLET PO (08:22)
[2023-02-12] MEDS: FOLIC ACID 1 MG TABLET PO (08:22)
[2023-02-12] MEDS: THERAPEUTIC MULTIVITAMINS/MINERALS TAB (*BKC) 1 TABLET PO (08:22)
[2023-02-12] MEDS: SACCHAROMYCES BOULARDII 250 MG CAPSULE PO (08:22)
[2023-02-12] MEDS: MAGNESIUM SULF 2 GM/WATER 50ML 2 GM/50 ML BAG IVPB (08:23)
--- NOTE | 2023-02-12 08:28 | PM.DS ---
DS: Admitting Diagnosis Discharge Date 02/12/2023 Admitting Diagnosis Acute hypokalemia, weakness, acute UTI, nicotine dependence, COPD, hypomagnesemia, right upper lobe consolidation DS: Discharge Diagnosis Discharge Diagnosis (1) Acute hypokalemia: Code(s): E87.6 - Hypokalemia Status: Acute (2) Weakness: Code(s): R53.1 - Weakness Status: Acute (3) Acute UTI: Code(s): N39.0 - Urinary tract infection, site not specified Status: Acute (4) Nicotine dependence: Code(s): F17.200 - Nicotine dependence, unspecified, uncomplicated Status: Chronic (5) Hypomagnesemia: Code(s): E83.42 - Hypomagnesemia Status: Acute (6) COPD (chronic obstructive pulmonary disease): Qualifiers: COPD type: COPD with acute exacerbation Qualified Code(s): J44.1 - Chronic obstructive pulmonary disease with (acute) exacerbation Code(s): J44.9 - Chronic obstructive pulmonary disease, unspecified Status: Acute (7) Right upper lobe consolidation: Code(s): J18.1 - Lobar pneumonia, unspecified organism Status: Acute Plan Electrolytes have been replaced and stable. Patient discharged home per her request. DS: Summary Hospital Course Reason for hospitalization: Patient saw her PCP due to weakness and labs showed profound hypokalemia. Hospital Course: 02/11: This is a 73-year-old female patient chronic smoker chronic alcohol user with a prior history of COPD and hypertension not currently taking any medications who was admitted to the hospital for profound hypokalemia in the setting of weakness and ongoing diarrhea.? Patient was seen at primary care office yesterday had labs and urine.? Urinalysis indicated urinary tract infection.? A UA and culture was collected in our system before patient received antibiotics by the emergency department.? She received IV Rocephin which we will continue.? Additionally, blood work showed potassium of 2.3 so patient was sent for admission for hypokalemia and UTI with weakness.? Patient reports that she has had ongoing diarrhea for about the last 2-3 weeks and nursing staff notes 5 episodes of diarrhea in the previous 12 hours.? We will collect C diff sample though her risk for C diff is quite low.? Suspect that she has lost significant amount of body stores of potassium through continuous diarrhea.? Patient received IV and oral replacement in the ER with no essential improvement, 2.4 on morning labs.? Additionally, magnesium noted to be low at 1.3.? Patient does have a history of alcohol abuse and states that she has not had much of an appetite and not eating well for about the last 2-3 weeks also.? IV magnesium ordered, IV potassium and oral potassium ordered.? Patient was requesting discharge this afternoon but I explained to her the importance of correcting electrolytes and the likelihood requiring extensive replacement being needed due to ongoing losses.? She expressed understanding and agreement with remaining admitted.? Admission status changed to inpatient due to continued profound hypokalemia.? Patient was seen eating breakfast and tolerating it well. 02/12: Patient reports that she has her energy back. She has not had any further diarrhea since receiving Imodium. Labs have improved somewhat after treatment. Suspect that these remain low due to chronic malnutrition. Patient is very insistent on being discharged states that she has antsy about staying in the hospital all that she always stays on the go and feels trapped in this room. Patient is ambulatory around the room with a steady gait. Showing no other signs of alcohol withdrawal. Discussed oral antibiotics, potassium loperamide p.r.n. and probiotics. Prescription sent to preferred pharmacy. Patient discharged in stable condition. Patient made aware right upper lobe nodule states that she has had this for a long time and follows with Dr. Napier with pulmonology. Patient encourage
[2023-02-12] MEDS: AMOXICILLIN/CLAVULANATE K 875-125 MG TAB 1 TABLET PO (08:40)
[2023-02-12] MEDS: POTASSIUM/PHOSPHORUS/SODIUM 1.5 GM PACKET 2 PACKET PO (09:57)
--- NOTE | 2023-02-12 10:08 | PC.NURSE ---
Pt sitting in chair and ready to go home. She reports no s/sxs and feeling much better, wanting her d/c packet to leave. Explained all d/c instrtuctions and med Rx given for pickup. Pt understands all instruction.
--- NOTE | 2023-02-12 10:25 | PC.NURSE ---
Pt d/c via w/c to jay yao RN. Pt has all belongings and understands all d/c instructions and f/u care instructions given.
[2023-02-14 22:46] LABS: Pneumococcal Antigen Urine Not Detected (Not Detected)
[2023-02-15 03:14] LABS: Legionella pneumophila Ag Ur Not Detected (Not Detected)
--- NOTE | 2023-02-15 08:35 | PC.NURSE ---
Discharge call back completed, weak, taking meds as prescribed, no questions about dc instructions, care was great.
== END 2023-02-12 10:25 | disposition home or self-care (01) | DRG 640 ==
LOC: CHSED 17:27 → CHS2ND 19:04
PROVIDERS: Nurse Practitioner; Admitting Provider Internal Medicine; Emergency Provider Emergency Medicine; PCP Family Medicine; Visit Provider Internal Medicine
DX: E87.6 Hypokalemia (principal); J18.9 Pneumonia, unspecified organism; J44.0 Chronic obstructive pulmonary disease with (acute) lower respiratory infection; N39.0 Urinary tract infection, site not specified; E83.42 Hypomagnesemia; R19.7 Diarrhea, unspecified; I10 Essential (primary) hypertension; B96.20 Unspecified Escherichia coli [E. coli] as the cause of diseases classified elsewhere; F17.210 Nicotine dependence, cigarettes, uncomplicated; F10.10 Alcohol abuse, uncomplicated; Z80.0 Family history of malignant neoplasm of digestive organs; Z86.010 Personal history of colon polyps
CPT/HCPCS: 36415; 71250; 80048; 80053; 80069; 83605; 83735; 85025; 85027; 86140; 87040; 87070; 87081; 87205; 87324; 87449; 87899; 93005; 94640; 96365; 96367; 99285; A9270; G0378; J0696; J3411; J3475; J3480; J7030; J7050

== ENCOUNTER 2023-02-16 16:17 | Outpatient (CLI) | payer OTHER, SELFPAY ==
[2023-02-16 16:49] LABS: D Dimer 1.26 mg/L (0.19-0.50)
[2023-02-16 17:05] LABS: Alanine Aminotransferase 91 U/L (14-59); Albumin Level 2.8 g/dL (3.4-5.0); Alkaline Phosphatase 179 U/L (46-116); Anion Gap 5 mmol/L (8-16); Aspartate Amino Transferase 117 U/L (15-37); Bilirubin,Total 0.6 mg/dL (0.00-1.00); Blood Urea Nitrogen 8 mg/dL (7-18); Calcium 9.2 mg/dL (8.5-10.1); Carbon Dioxide 33 mmol/L (21-32); Chloride 101 mmol/L (98-108); Estimated Glomerular Filt Rate > 60; Glucose 78 mg/dL (70-99); Magnesium 1.5 mg/dL (1.8-2.4); Osmolality Calculated 285 mOsm/kg (285-295); Potassium 4.7 mmol/L (3.5-5.1); Sodium 139 mmol/L (136-145); Total Protein 6.1 g/dL (6.4-8.2)
== END 2023-02-16 16:18 | disposition home or self-care (01) ==
PROVIDERS: PCP Family Medicine; Visit Provider Family Medicine
DX: E87.6 Hypokalemia (principal); M79.604 Pain in right leg; E83.42 Hypomagnesemia
CPT/HCPCS: 36415; 80053; 83735; 85380

== ENCOUNTER 2023-02-17 08:35 | Outpatient (CLI) | payer OTHER, SELFPAY ==
--- NOTE | ~2023-02-17 | US_ITS ---
EXAMINATION: US venous doppler [facility] DATE: 02/17/2023 09:22 INDICATION: Lower limb swelling. TECHNIQUE: Grayscale ultrasound images without and with compression and Doppler ultrasound images of the bilateral lower extremity veins were obtained. COMPARISON: None. FINDINGS: The visualized portions of right common femoral vein, profunda (deep) femoral vein, femoral vein, pop liteal vein, peroneal veins, posterior tibial veins, and greater saphenous vein outflow are patent. The visualized portions of left common femoral vein, profunda femoral vein, femoral vein, popliteal v ein, peroneal veins, posterior tibial veins, and greater saphenous vein outflow are patent. IMPRESSION: 1. No deep venous thrombosis. Reviewed, dictated and finalized at location A. ETING PERFORMANCE ANALYST
== END 2023-02-17 08:36 | disposition home or self-care (01) ==
PROVIDERS: PCP Family Medicine; Visit Provider Family Medicine
DX: R79.1 Abnormal coagulation profile (principal); M79.89 Other specified soft tissue disorders
CPT/HCPCS: 93970

== ENCOUNTER 2023-02-28 11:23 | Outpatient (CLI) | payer OTHER, SELFPAY ==
[2023-02-28 12:10] LABS: Alanine Aminotransferase 69 U/L (14-59); Albumin Level 2.3 g/dL (3.4-5.0); Alkaline Phosphatase 163 U/L (46-116); Anion Gap 9 mmol/L (8-16); Aspartate Amino Transferase 108 U/L (15-37); Bilirubin,Total 1.4 mg/dL (0.00-1.00); Blood Urea Nitrogen 9 mg/dL (7-18); Calcium 8.7 mg/dL (8.5-10.1); Carbon Dioxide 32 mmol/L (21-32); Chloride 99 mmol/L (98-108); Estimated Glomerular Filt Rate > 60; Glucose 101 mg/dL (70-99); Magnesium 1.4 mg/dL (1.8-2.4); Osmolality Calculated 288 mOsm/kg (285-295); Potassium 3.8 mmol/L (3.5-5.1); Sodium 140 mmol/L (136-145); Total Protein 5.9 g/dL (6.4-8.2)
== END 2023-02-28 11:24 | disposition home or self-care (01) ==
LOC: CHSLAB 11:25
PROVIDERS: PCP Family Medicine; Visit Provider Family Medicine
DX: E83.42 Hypomagnesemia (principal); R60.9 Edema, unspecified
CPT/HCPCS: 36415; 80048; 80053; 83735

== ENCOUNTER 2023-03-04 11:55 | Outpatient (CLI) | payer OTHER, SELFPAY ==
[2023-03-04 12:16] LABS: Basophils Absolute Auto 0.06 K/mm3 (0.00-0.10); Basophils Percent Auto 0.6 % (0.0-1.0); Eosinophils Absolute Auto 0.07 K/mm3 (0.02-0.50); Eosinophils Percent Auto 0.7 % (1.0-6.0); Hematocrit 39.3 % (35.0-42.0); Hemoglobin 13.6 g/dL (11.7-13.8); Immature Granulocyte Absolute 0.03 K/mm3 (0.00-0.00); Immature Granulocyte Percent A 0.3 % (0.0-0.0); Lymphocytes Absolute Auto 2.55 K/mm3 (1.10-4.50); Lymphocytes Percent Auto 26.8 % (18.0-42.0); Mean Corpuscular HGB Conc 34.6 g/dL (32.0-36.0); Mean Corpuscular Hemoglobin 36.3 pg (27.0-31.0); Mean Corpuscular Volume 104.8 fL (78.0-102.0); Mean Platelet Volume 9.8 fl (9.2-11.8); Monocytes Absolute Auto 1.37 K/mm3 (0.10-0.90); Monocytes Percent Auto 14.4 % (2.0-11.0); Neutrophils Absolute Auto 5.4 K/mm3 (1.7-7.2); Neutrophils Percent Auto 57.2 % (50.0-70.0); Platelet Count Result 266 K/mm3 (150-420); Red Blood Count 3.75 M/mm3 (4.20-5.40); White Blood Count 9.5 K/mm3 (4.8-10.8)
[2023-03-04 12:52] LABS: Influenza A QL RT-PCR Negative (Negative); Influenza B QL RT-PCR Negative (Negative); SARS-CoV-2 RNA PCR Negative (Negative)
[2023-03-04 12:54] LABS: RSV RNA, RT-PCR Negative (Negative)
[2023-03-04 13:06] LABS: Alanine Aminotransferase 78 U/L (14-59); Albumin Level 2.4 g/dL (3.4-5.0); Alkaline Phosphatase 189 U/L (46-116); Anion Gap 7 mmol/L (8-16); Aspartate Amino Transferase 120 U/L (15-37); Blood Urea Nitrogen 3 mg/dL (7-18); Calcium 8.5 mg/dL (8.5-10.1); Carbon Dioxide 33 mmol/L (21-32); Chloride 96 mmol/L (98-108); Estimated Glomerular Filt Rate > 60; Glucose 81 mg/dL (70-99); Magnesium 1.4 mg/dL (1.8-2.4); Osmolality Calculated 277 mOsm/kg (285-295); Potassium 3.4 mmol/L (3.5-5.1); Sodium 136 mmol/L (136-145); Total Protein 6.1 g/dL (6.4-8.2)
== END 2023-03-04 11:56 | disposition home or self-care (01) ==
LOC: CHSLAB 11:57
PROVIDERS: PCP Family Medicine; Visit Provider Family Medicine
DX: R19.7 Diarrhea, unspecified (principal); J44.1 Chronic obstructive pulmonary disease with (acute) exacerbation; E87.6 Hypokalemia; E83.42 Hypomagnesemia
CPT/HCPCS: 36415; 80053; 83735; 85025; 87637

== ENCOUNTER 2023-03-06 17:59 | Outpatient (NON) | payer OTHER, SELFPAY | END 2023-03-06 18:00 | disposition home or self-care (01) | LOC: CHSLAB 18:00 | PROVIDERS: Visit Provider Family Medicine | DX: R19.7 Diarrhea, unspecified (principal); J44.1 Chronic obstructive pulmonary disease with (acute) exacerbation; E87.6 Hypokalemia; E83.42 Hypomagnesemia | CPT/HCPCS: 87324 ==

== ENCOUNTER 2023-03-10 10:18 | Outpatient (CLI) | payer OTHER, SELFPAY ==
--- NOTE | ~2023-03-10 | CT_ITS ---
CT Scan of the Chest without Contrast: Clinical Indication: Right lung mass Technique: Contiguous sections were acquired throughout the chest without intravenous contrast. Dose reduction technique was used on this scan by utilizing automated exposure control and iterative recon struction technique. The dose-length product (DLP) was 141.59 mGy-cm. COMPARISON: 02/11/2023 Findings: There is no evidence of any significant mediastinal, hilar or axillary lymphadenopathy. There are ath erosclerotic changes of the aorta and coronary arteries. Calcified lymph nodes are present. There is no evidence of pleural or pericardial effusion. Irregular cavitary lesion in the right upper lobe is again present, with mild decrease in the extent/ degree of wall thickening of the lesion as compared to prior exam. Upper lobe emphysematous change is stable from prior exam. Images through the upper abdomen reveal diffuse fatty infiltration of the liver and calcified splenic granulomas. Impression: Irregular cavitary lesion in the right upper lobe demonstrates mild decrease in the extent and degree of wall thickening as compared to prior exam. Stable advanced degenerative change in the upper lobes. Reviewed, dictated and finalized at [facility]. OGY DEPARTMENT CHAIR Impression: Irregular cavitary lesion in the right upper lobe demonstrates mild decrease in the extent and degree of wall thickening as compared to prior exam. Stable advanced degenerative change in the upper lobes.
== END 2023-03-10 10:19 | disposition home or self-care (01) ==
LOC: CHSIMG 10:20
PROVIDERS: PCP Family Medicine; Visit Provider Family Medicine
DX: R91.8 Other nonspecific abnormal finding of lung field (principal)
CPT/HCPCS: 71250

== ENCOUNTER 2023-03-23 08:05 | Outpatient (CLI) | payer OTHER, SELFPAY ==
--- NOTE | 2023-03-23 13:13 | WPDSIXMINUTE ---
Six Minute Walk Procedure Procedure Performed Pulmonary Stress Test (6 min walk) Six Minute Walk Six Minute Walk: This is a 6 minute walk test. The test was performed and interpreted in accordance with the 2014 ERS/ATS task force guidelines. Findings: The patient's resting room air oxygen saturation measured by pulse oximetry was 91% and heart rate was 123bpm. Patient ambulated for 244 meters and oxygen saturation remained 90 to 92%. Heart rate at the end of the study was 137 bpm. The patient did not qualify for supplemental oxygen at rest or with ambulation. There are no prior studies for comparison.
== END 2023-03-23 08:06 | disposition home or self-care (01) ==
LOC: ANHPFT 08:06
PROVIDERS: PCP Family Medicine; Visit Provider Family Medicine
DX: J44.9 Chronic obstructive pulmonary disease, unspecified (principal)
CPT/HCPCS: 94618

== ENCOUNTER 2023-03-29 09:30 | Outpatient (RCR) | payer OTHER, SELFPAY ==
[2023-03-25 12:01] VITALS: BP 122/70; PULSE 118; RESP 18; O2SAT 95
[2023-03-25 12:02] VITALS: PULSE 118
== END 2023-05-13 10:57 | disposition home or self-care (01) ==
LOC: ANHCPREHAB 09:30
PROVIDERS: PCP Family Medicine; Visit Provider Family Medicine
DX: J43.9 Emphysema, unspecified (principal); J44.9 Chronic obstructive pulmonary disease, unspecified
CPT/HCPCS: 94625

== ENCOUNTER 2023-04-07 15:50 | Outpatient (CLI) | payer OTHER, SELFPAY ==
[2023-04-07 16:27] LABS: Basophils Absolute Auto 0.05 K/mm3 (0.00-0.10); Basophils Percent Auto 0.6 % (0.0-1.0); Eosinophils Absolute Auto 0.02 K/mm3 (0.02-0.50); Eosinophils Percent Auto 0.2 % (1.0-6.0); Hematocrit 42.9 % (35.0-42.0); Hemoglobin 14.8 g/dL (11.7-13.8); Immature Granulocyte Absolute 0.05 K/mm3 (0.00-0.00); Immature Granulocyte Percent A 0.6 % (0.0-0.0); Lymphocytes Absolute Auto 3.04 K/mm3 (1.10-4.50); Lymphocytes Percent Auto 33.8 % (18.0-42.0); Mean Corpuscular HGB Conc 34.5 g/dL (32.0-36.0); Mean Corpuscular Hemoglobin 35.2 pg (27.0-31.0); Mean Corpuscular Volume 102.1 fL (78.0-102.0); Mean Platelet Volume 10.2 fl (9.2-11.8); Monocytes Absolute Auto 1.05 K/mm3 (0.10-0.90); Monocytes Percent Auto 11.7 % (2.0-11.0); Neutrophils Absolute Auto 4.8 K/mm3 (1.7-7.2); Neutrophils Percent Auto 53.1 % (50.0-70.0); Platelet Count Result 180 K/mm3 (150-420); Red Cell Distribution Width 12.4 % (11.6-14.4)
[2023-04-07 16:44] LABS: Alanine Aminotransferase 64 U/L (14-59); Albumin Level 2.9 g/dL (3.4-5.0); Alkaline Phosphatase 220 U/L (46-116); Amylase 21 U/L (25-115); Anion Gap 8 mmol/L (8-16); Aspartate Amino Transferase 130 U/L (15-37); Bilirubin,Total 1.1 mg/dL (0.00-1.00); Blood Urea Nitrogen 5 mg/dL (7-18); Calcium 9.6 mg/dL (8.5-10.1); Carbon Dioxide 34 mmol/L (21-32); Chloride 93 mmol/L (98-108); Estimated Glomerular Filt Rate > 60; Ethanol 62 mg/dL (0-6); Glucose 94 mg/dL (70-99); Lipase 29 U/L (16-77); Magnesium 1.2 mg/dL (1.8-2.4); Osmolality Calculated 277 mOsm/kg (285-295); Sodium 135 mmol/L (136-145); Total Protein 6.6 g/dL (6.4-8.2)
[2023-04-07 16:45] LABS: Ammonia < 10 umol/L (11-32)
== END 2023-04-07 15:51 | disposition home or self-care (01) ==
LOC: CHSLAB 15:51
PROVIDERS: PCP Family Medicine; Visit Provider Family Medicine
DX: F10.20 Alcohol dependence, uncomplicated (principal); R10.84 Generalized abdominal pain
CPT/HCPCS: 36415; 80053; 80307; 82140; 82150; 83690; 83735; 85025

== ENCOUNTER 2023-04-13 12:23 | Outpatient (CLI) | payer OTHER, SELFPAY ==
[2023-04-13 13:18] LABS: Prothrombin Time 13.8 Seconds (11.1-14.7)
[2023-04-13 13:27] LABS: Iron 157 ug/dL (37-170)
[2023-04-13 13:36] LABS: Percent Iron Saturation 105 % (20-50)
[2023-04-13 14:06] LABS: Hepatitis B Surface Antigen Negative (Negative)
[2023-04-13 14:12] LABS: HAV RESULT Negative (Negative); Hepatitis B Core IgM Result Negative (Negative)
[2023-04-13 14:24] LABS: Hepatitis C Virus Antibody Negative (Negative)
[2023-04-13 14:59] LABS: Ferritin > 2000.00 ng/mL (11.1-264)
[2023-04-16 11:28] LABS: LKM 1 Antibody <=20.0 U (<=20.0)
[2023-04-16 20:16] LABS: Ceruloplasmin 31 mg/dL (18-53)
[2023-04-18 05:42] LABS: Immunoglobulin A 535 mg/dL (70-320); TTG IGA AB <1.0 U/mL (<15.0)
[2023-04-18 11:51] LABS: Anti Nuclear Antibody Pattern Nuclear, Speckled
[2023-04-18 20:09] LABS: GGT 264 U/L (3-65)
[2023-04-18 21:04] LABS: Actin Antibody (IgG) <20 U (<20)
[2023-04-18 21:41] LABS: Mitochondrial (M2) Ab (IgG) <=20.0 U (<=20.0)
[2023-04-21 15:37] LABS: ALT 60 U/L (6-29); Alpha Fetoprotein Tumor Marker 1.4 ng/mL (<6.1); Alpha-2-Macroglobulin 224 mg/dL (106-279); Apolipoprotein A1 129 mg/dL (101-198); Fibrosis Score 0.79; Fibrosis Stage F4; GGT 267 U/L (3-65); Haptoglobin 127 mg/dL (43-212); Necroinflammat Act Grade A2; Total Bilirubin 1.6 mg/dL (0.2-1.2)
== END 2023-04-13 12:24 | disposition home or self-care (01) ==
PROVIDERS: PCP Family Medicine; Visit Provider Nurse Practitioner Family
DX: K76.0 Fatty (change of) liver, not elsewhere classified (principal); R74.8 Abnormal levels of other serum enzymes; R19.5 Other fecal abnormalities
CPT/HCPCS: 36415; 80074; 81596; 82105; 82390; 82728; 82784; 82977; 83520; 83540; 83550; 85610; 86038; 86039; 86364; 86376

== ENCOUNTER 2023-04-26 07:52 | Outpatient (CLI) | payer OTHER, SELFPAY ==
--- NOTE | ~2023-04-26 | US_ITS ---
US abdomen limited INDICATION: Elevated level of liver enzymes PROCEDURE: Realtime right upper abdominal ultrasound. COMPARISON: No prior studies for comparison. FINDINGS: The pancreas is normal without focal mass or pancreatic ductal dilation. Liver echotexture is increased, consistent with fatty infiltration. Liver is enlarged measuring 20 cm. There is pavithra l directional flow in the portal vein. There is gallbladder sludge. Common bile duct measures 4 mm. No sonographic Leigh's sign. IMPRESSION: 1: Gallbladder sludge. 2: Hepatomegaly with fatty infiltration of the liver. Reviewed, dictated and finalized at location L. ONTRACT MANAGER
[2023-05-02 21:21] LABS: Pancreatic Elastase, Stool >500 mcg/g
[2023-05-09 01:36] LABS: Calprotectin, Stool 98 mcg/g
== END 2023-04-26 07:53 | disposition home or self-care (01) ==
PROVIDERS: PCP Family Medicine; Visit Provider Nurse Practitioner Family
DX: K76.0 Fatty (change of) liver, not elsewhere classified (principal); R74.8 Abnormal levels of other serum enzymes; R19.5 Other fecal abnormalities
CPT/HCPCS: 76705; 82653; 83993; 87045; 87177; 87209; 87427; 87449

== ENCOUNTER 2023-04-28 02:04 | Day surgery (SDC) | payer OTHER, SELFPAY ==
[2023-04-19 10:32] VITALS: BMI 22.5
--- NOTE | 2023-04-26 12:45 | SUR.PREOP ---
Patient called regarding upcoming procedure. Went over preop instructions, appointment times, and procedure prep
[2023-04-28 12:23] VITALS: BP 136/80; PULSE 126; RESP 20; TEMP 36.4; O2SAT 96
[2023-04-28] MEDS: LACTATED RINGERS 1,000 ML 150 ML IV CONT (12:31)
--- NOTE | 2023-04-28 12:32 | SUR.PREOP ---
Patient's heart rate is 126. Dr. Nobles made aware. Okay to proceed from his standpoint.
--- NOTE | 2023-04-28 12:34 | WPDANESEPPF ---
Anes - Initial Pre Proc Eval Procedure: Operation Date: 04/28/23 13:30 Proposed Procedures p Esophagogastroduodenoscopy - Reyes Thorpe MD Date/Time: 04/28/23 12:34 Surgeon: Reyes Thorpe MD Pre Op Diagnosis: Early Satiety Patient Data Age: 73 Gender: F Height: 1.65 m Weight: 59.5 kg Last Vital Signs Temp 97.5 F L 04/28/23 12:23 Pulse 126 H 04/28/23 12:23 Resp 20 04/28/23 12:23 BP 136/80 04/28/23 12:23 Pulse Ox 96 04/28/23 12:23 O2 Del Method Room Air 04/28/23 12:23 Allergies Allergy/AdvReac Type Severity Reaction Status Date / Time mercury (elemental) Allergy Unknown Verified 04/28/23 12:21 Iodine and Iodide Containing AdvReac Rash Verified 04/28/23 12:21 Produc Home Medications Medication Instructions Recorded Confirmed Type albuterol sulfate 90 mcg/actuation 1 inh inhalation Q4H PRN Shortness 04/11/23 04/19/23 History aerosol inhaler Of Breath fluticasone fur. 100 mcg-umeclid 1 inh inhalation DAILY 04/11/23 04/28/23 History 62.5 mcg-vilant 25 mcg inhalat.powder (Trelegy Ellipta) ipratropium 0.5 mg-albuterol 3 mg 3 ml inhalation Q6H PRN Shortness 04/11/23 04/19/23 History (2.5 mg base)/3 mL nebulization Of Breath Or Wheezing soln potassium chloride 20 mEq 20 meq PO BID 04/13/23 04/19/23 History tablet,extended release Patient hx anesthesia problems: none Family hx anesthesia problems: none Results Review: All pre-operative results and documents have been reviewed as part of the pre-operative evaluation. [facility] Past Medical History Medical History (Updated 04/14/23 @ 08:35 by ERNESTO Wong) COPD (chronic obstructive pulmonary disease) Early satiety Elevated ferritin Elevated liver enzymes Family hx of colon cancer Fatty liver History of bruising easily Hypertension Surgical History Surgical History H/O colonoscopy with polypectomy H/O tubal ligation History of appendectomy History of colon surgery cecum History of tooth extraction S/P tonsillectomy Family History Family History Father Colon cancer Social History Social History Social History: She lives with a roommate. She is and has 4 children. 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 code status full code Smoking packs per day: 1 Smoking cigarettes per day: 20.0 Years smoked: 55 Smoking pack-years: 55.00 Smoking status: Current every day smoker Tobacco type: cigarettes Second hand tobacco smoke exposure: No Alcohol intake: current Drinks per week: 14 Alcohol use details: 5 shots per day Substance use: never Substance use type: does not use Lack of Transportation: No Lack of Food: Never True Current Housing: I Have Housing Concerned About Future Housing: No Difficulty Paying Gas/Electric Bills: No Difficulty Paying for Meds: No Currently Unemployed: No Education: High School Diploma/GED Difficulty w/ Childcare or Family Care: No Living arrangements: alone Occupation/Education: occupation 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 Gender identity (if verbalized by the patient): Female Spiritual care concerns: No Agree to blood products: Yes Anes - Eval Final PreProcedure Day of Procedure 04/28/23 12:34 Patient weight: normal Heart: regular rate and rhythm Lungs: clear to auscultation Airway: Mallampati scale class II Neurological: alert and oriented Last oral intake: >/= 8 hours ASA classification: III Emergent: no Anesthetic plan: proceed Anesthesia type and monitoring: general GIVS and standard monitoring Results Review: All pre-operative results and documents have been reviewed as part of the pre-operative evaluation. Informed Consent: The patient's anesthe
--- NOTE | 2023-04-28 12:43 | WPDHPUPDATE1 ---
History and Physical Update Update Date/Time: 04/28/23 12:43 History and Physical has been reviewed, including an updated exam of the patient. There are NO changes in the patient's condition. Risks, benefits, and alternatives have been discussed and questions answered. Patient agrees to proceed with procedure.
[2023-04-28 13:04] VITALS: BP 133/72; PULSE 112; RESP 24; O2SAT 96
[2023-04-28 13:14] VITALS: BP 126/72; PULSE 104; RESP 25; O2SAT 97
[2023-04-28 13:24] VITALS: BP 133/75; PULSE 100; RESP 23; O2SAT 96
== END 2023-04-28 13:45 | disposition home or self-care (01) ==
PROVIDERS: PCP Family Medicine; Visit Provider Internal Medicine Gastroenterology
PROC: 0DJ08ZZ Inspection of Upper Intestinal Tract, Via Natural or Artificial Opening Endoscopic (ICD-10-PCS; CPT 43235; principal; 2023-04-28 13:30)
DX: K29.80 Duodenitis without bleeding (principal); K44.9 Diaphragmatic hernia without obstruction or gangrene; K31.89 Other diseases of stomach and duodenum; I10 Essential (primary) hypertension; J44.9 Chronic obstructive pulmonary disease, unspecified; F17.210 Nicotine dependence, cigarettes, uncomplicated; Z98.890 Other specified postprocedural states; Z86.010 Personal history of colon polyps; Z80.0 Family history of malignant neoplasm of digestive organs
CPT/HCPCS: 43239; 87081; 88305; J2001; J2704; J7120

== ENCOUNTER 2023-05-07 12:45 | Outpatient (CLI) | payer OTHER, SELFPAY | END 2023-05-07 12:46 | disposition home or self-care (01) | PROVIDERS: PCP Family Medicine; Visit Provider Nurse Practitioner Family | DX: R89.9 Unspecified abnormal finding in specimens from other organs, systems and tissues (principal); R79.89 Other specified abnormal findings of blood chemistry; R74.8 Abnormal levels of other serum enzymes | CPT/HCPCS: 36415; 81256 ==

== ENCOUNTER 2023-05-24 09:43 | Outpatient (CLI) | payer OTHER, SELFPAY ==
[2023-05-24 10:37] LABS: Alanine Aminotransferase 48 U/L (14-59); Alkaline Phosphatase 224 U/L (46-116); Anion Gap 14 mmol/L (8-16); Aspartate Amino Transferase 123 U/L (15-37); Bilirubin,Total 2.3 mg/dL (0.00-1.00); Blood Urea Nitrogen 12 mg/dL (7-18); Calcium 8.8 mg/dL (8.5-10.1); Carbon Dioxide 31 mmol/L (21-32); Chloride 92 mmol/L (98-108); Estimated Glomerular Filt Rate > 60; Glucose 113 mg/dL (70-99); Magnesium 1.5 mg/dL (1.8-2.4); Osmolality Calculated 284 mOsm/kg (285-295); Potassium 3.1 mmol/L (3.5-5.1); Sodium 137 mmol/L (136-145); Total Protein 5.8 g/dL (6.4-8.2)
== END 2023-05-24 09:44 | disposition home or self-care (01) ==
LOC: CHSLAB 09:44
PROVIDERS: PCP Family Medicine; Visit Provider Family Medicine
DX: R60.0 Localized edema (principal); E83.42 Hypomagnesemia
CPT/HCPCS: 36415; 80053; 83735

== ENCOUNTER 2023-06-02 12:57 | Outpatient (RCR) | payer OTHER, SELFPAY ==
--- NOTE | 2023-06-02 13:30 | PCCPR ---
Pt arrived for pulmonary rehab via w/c being assisted by son. Pt appears pale and slightly jaundice, slow to respond to questions, strong cigarette odor, slight smell of alcohol. Pt states she is down to 5 cigarettes a day and quit drinking 2 days ago. Pt unable to remove own coat. Unsteady on feet to transfer to scale or chair. Placed patient on telemetry, noted patient resting heart rate 140-160bpm and irregular. STAT EKG ordered and completed. Call placed to Dr. Hernandez, recommends ER evaluation, patient agreeable. Daughter present and updated on status and recommendation. Taken to ER, report & copy of EKG given to Dr. Freeman and Margret RN.
--- NOTE | 2023-06-02 13:47 | ECG_ITS ---
Measurements Intervals [place] Rate: 137 P: 73 OR: 143 QRS: 66 QRSD: 62 T: 72 QT: 339 QTc: 512 Interpretive Statements PROBABLY SINUS TACHYCARDIA WITH FREQUENT SUPRAVENTRICULAR PREMATURE COMPLEXES NONSPECIFIC T-WAVE ABNORMALITY THE BASELINE ARTIFACT LIMITS INTERPRETATION COMPARED TO ECG 02/10/2023 17:54:43 SINUS TACHYCARDIA NOW PRESENT Electronically Signed On 06-02-2023 15:26:14 OUTDOOR PURSUITS INSTRUCTOR by Checo Smith M.D.
== END 2023-06-02 14:20 | disposition critical access hospital (66) ==
PROVIDERS: PCP Family Medicine; Visit Provider Family Medicine
DX: J44.9 Chronic obstructive pulmonary disease, unspecified (principal)
CPT/HCPCS: 93005

== ENCOUNTER 2023-06-02 14:06 | Emergency (ER) | payer OTHER, SELFPAY ==
[2023-06-02] VITALS (53 sets, daily range): BP systolic 86–127; BP diastolic 60–106; PULSE 74–129; RESP 18–32; TEMP 36.7–37.5; O2SAT 78–96
--- NOTE | ~2023-06-02 | XR_ITS ---
EXAMINATION: XR chest 1V portable DATE: 06/02/2023 14:56 INDICATION: Dyspnea. TECHNIQUE: A single frontal view of the chest was obtained. COMPARISON: Chest 2 views 02/10/2023, chest CT 03/10/2023, 02/11/2023 FINDINGS: There are lucencies in the lungs, consistent with emphysema. There are airspace opacities w ith cavitation in right upper lobe. No pleural effusion or pneumothorax. The heart size is normal. Ca lcified left hilar and mediastinal lymph nodes are consistent with old granulomatous disease. There a re old healed right rib fractures. IMPRESSION: 1. Airspace opacities with cavitation in right upper lobe with improvement from 02/10/2023, consistent with pneumonia. 2. Emphysema. Reviewed, dictated and finalized at location A. OECONOMICS PROFESSOR
[2023-06-02] MEDS: SODIUM CHLORIDE 0.9% IV 1,000 ML 999 ML IV CONT (14:15)
[2023-06-02] MEDS: methylPREDNISolone SOD SUCC 125 MG VIAL IV PUSH (14:18)
[2023-06-02] MEDS: MAGNESIUM SULF 2 GM/WATER 50ML 2 GM/50 ML BAG IVPB (14:19)
[2023-06-02] MEDS: IPRATROPIUM 0.5 MG/ALBUTEROL SULFATE 2.5 MG AMPUL.NEB 3 ML INHALATION (14:21)
[2023-06-02 14:24] LABS: Basophils Absolute Auto 0.04 K/mm3 (0.00-0.10); Basophils Percent Auto 0.4 % (0.0-1.0); Eosinophils Absolute Auto 0.05 K/mm3 (0.02-0.50); Eosinophils Percent Auto 0.5 % (1.0-6.0); Hematocrit 32.5 % (35.0-42.0); Hemoglobin 10.6 g/dL (11.7-13.8); Immature Granulocyte Percent A 0.9 % (0.0-0.0); Lymphocytes Absolute Auto 2.19 K/mm3 (1.10-4.50); Lymphocytes Percent Auto 20.2 % (18.0-42.0); Mean Corpuscular HGB Conc 32.6 g/dL (32.0-36.0); Mean Corpuscular Hemoglobin 32.6 pg (27.0-31.0); Mean Platelet Volume 12.3 fl (9.2-11.8); Monocytes Percent Auto 10.2 % (2.0-11.0); Neutrophils Absolute Auto 7.4 K/mm3 (1.7-7.2); Neutrophils Percent Auto 67.8 % (50.0-70.0); Nucleated Red Blood Cells Absolute Auto 0.06 K/mm3 (0.00-0.00); Nucleated Red Blood Cells Perc 0.6 % (0-0.0); Platelet Count Result 176 K/mm3 (150-420); Red Blood Count 3.25 M/mm3 (4.20-5.40); Red Cell Distribution Width 14.6 % (11.6-14.4); White Blood Count 10.8 K/mm3 (4.8-10.8)
[2023-06-02 14:31] LABS: INR 1.3; Partial Thromboplastin Time 24.8 SEC (23.90-30.70)
[2023-06-02 14:36] LABS: D Dimer 1.38 mg/L (0.19-0.50)
[2023-06-02 14:37] LABS: Lactic Acid Reflex 3.9 mmol/L (0.4-2.0)
[2023-06-02 14:42] LABS: Alanine Aminotransferase 42 U/L (14-59); Alkaline Phosphatase 214 U/L (46-116); Anion Gap 12 mmol/L (8-16); Aspartate Amino Transferase 84 U/L (15-37); Bilirubin,Total 4.4 mg/dL (0.00-1.00); Blood Urea Nitrogen 27 mg/dL (7-18); Calcium 8.6 mg/dL (8.5-10.1); Carbon Dioxide 33 mmol/L (21-32); Chloride 92 mmol/L (98-108); Estimated Glomerular Filt Rate > 60; Glucose 98 mg/dL (70-99); Magnesium 1.7 mg/dL (1.8-2.4); NT Pro B Type Natriuretic Pept 1841 pg/mL (0-125); Osmolality Calculated 289 mOsm/kg (285-295); Potassium 3.1 mmol/L (3.5-5.1); Sodium 137 mmol/L (136-145); Total Protein 6.5 g/dL (6.4-8.2); Troponin I 21.8 ng/L (0.00-60.4)
[2023-06-02 14:43] LABS: Base Excess ABG 7.7 mmol/L (0-2); Device ROOM AIR; HCO3 ABG 30.1 mmol/L (23-29); Modified Allen's Test Pass; Oxygen Content ABG 13.3 %vol (16.0-22.0); Oxygen Saturation ABG 94.7 % (95-97); Oxyhemoglobin 92.9 % (94-100); PCO2 ABG 33.8 mmHg (35-45); PO2 ABG 73.7 mmHg (75-85); Site Drawn RIGHT BRACHIAL; Total Hemoglobin 10.1 g/dL (12.0-18.0); pH ABG 7.57 (7.35-7.45)
[2023-06-02] MEDS: LORazepam INJ (*CRX) 2 MG/ML VIAL 0.5 MG IV PUSH (15:05)
[2023-06-02] MEDS: POTASSIUM BICARBONATE 25 MEQ TABEF 50 MEQ PO (15:32)
--- NOTE | 2023-06-02 15:32 | ED.SOB ---
HPI - SOB/Dyspnea General Chief Complaint: Shortness of Breath/Dyspnea Stated Complaint: shortness of breath Time Seen by Provider: 06/02/23 14:08 Source: patient and EMS Mode of arrival: ambulatory Limitations: no limitations History of Present Illness HPI Narrative: this is a 73-year-old female that became short of breath and tachycardic while at pulmonary rehab this afternoon EKG was initially performed at rehab which showed heart rate of in the 130s patient with history of COPD and chronic alcohol abuse. Patient and family state that her last drink of alcohol was 1 day ago, patient denies any chest pain with no abdominal pain no flank pain no dysuria no chills no nausea vomiting. Patient neck alcoholic with chronic liver disease with cirrhosis and having some tremors with no headache no blurry vision no confusion MD elicited complaint: shortness of breath Pertinent past history: COPD Onset (ago): hour(s) Context: occurred during exertion Timing: constant Severity: moderate Exacerbating factors: other ( shortness of breath while at pulmonary rehab) Related Data Home Medications Medication Instructions Recorded Confirmed albuterol sulfate 90 mcg/actuation 1 inh inhalation Q4H PRN Shortness 04/11/23 05/18/23 aerosol inhaler Of Breath fluticasone fur. 100 mcg-umeclid 1 inh inhalation DAILY 04/11/23 05/18/23 62.5 mcg-vilant 25 mcg inhalat.powder (Trelegy Ellipta) ipratropium 0.5 mg-albuterol 3 mg 3 ml inhalation Q6H PRN Shortness 04/11/23 05/18/23 (2.5 mg base)/3 mL nebulization Of Breath Or Wheezing soln potassium chloride 20 mEq 20 meq PO BID 04/13/23 05/18/23 tablet,extended release folic acid 1 mg tablet 1 mg PO DAILY 05/18/23 05/18/23 spironolactone 25 mg tablet 25 mg PO DAILY 05/18/23 05/18/23 thiamine HCl (vitamin B1) 100 mg 100 mg PO DAILY 05/18/23 05/18/23 tablet Allergies Allergy/AdvReac Type Severity Reaction Status Date / Time mercury (elemental) Allergy Unknown Verified 05/18/23 12:05 Iodine and Iodide Containing AdvReac Rash Verified 05/18/23 12:05 Produc Review of Systems Review of Systems: All systems reviewed & are unremarkable except as noted in HPI and below PMFSH Past Medical History Medical History COPD (chronic obstructive pulmonary disease) Early satiety Elevated ferritin Elevated liver enzymes Family hx of colon cancer Fatty liver Gastritis and duodenitis History of bruising easily Hypertension Surgical History Surgical History H/O colonoscopy with polypectomy H/O tubal ligation History of appendectomy History of colon surgery cecum History of tooth extraction S/P tonsillectomy Family History Family History Father Colon cancer Social History Social History Social History: She lives with a roommate. She is and has 4 children. 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 status full code Smoking packs per day: 1 Smoking cigarettes per day: 20.0 Years smoked: 55 Smoking pack-years: 55.00 Smoking status: Current every day smoker Tobacco type: cigarettes Second hand tobacco smoke exposure: No Alcohol intake: current Drinks per week: 14 Alcohol use details: 5 shots per day Substance use: never Substance use type: does not use Lack of Transportation: No Lack of Food: Never True Current Housing: I Have Housing Concerned About Future Housing: No Difficulty Paying Gas/Electric Bills: No Difficulty Paying for Meds: No Currently Unemployed: No Education: High School Diploma/GED Difficulty w/ Childcare or Family Care: No Living arrangements: alone Occupation/Education: occupation 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
[2023-06-02] MEDS: KCL 20 MEQ/SW 100 ML 100 ML 50 MEQ IVPB (15:33)
[2023-06-02] MEDS: ENOXAPARIN 60 MG/0.6 ML SYRINGE 55 MG SUB-Q (15:53)
[2023-06-02] MEDS: AZITHROMYCIN 500 MG/NS 250 ML 500 MG/250 ML BAG 250 MG IVPB (16:32)
[2023-06-02 17:17] LABS: Reflex Lactic Acid Yes or No Add Lactic
[2023-06-02 18:36] LABS: SARS-CoV-2 RNA PCR Negative (Negative)
[2023-06-02 18:45] LABS: Influenza A QL RT-PCR Negative (Negative); Influenza B QL RT-PCR Positive (Negative); RSV RNA, RT-PCR Negative (Negative)
--- NOTE | 2023-06-11 12:50 | PC.NURSE ---
Addendum entered by Judi Escobedo RN 06/11/23 12:50: final blood culture reports x2 reviewed. no growth after 5 days. no change in plan of care. Original Note: final blood culture repopt
== END 2023-06-02 19:58 | disposition short-term general hospital (02) ==
PROVIDERS: Emergency Provider Emergency Medicine; PCP Family Medicine
DX: J44.9 Chronic obstructive pulmonary disease, unspecified (principal); J18.9 Pneumonia, unspecified organism; I10 Essential (primary) hypertension; F17.210 Nicotine dependence, cigarettes, uncomplicated; Z20.822 Contact with and (suspected) exposure to COVID-19
CPT/HCPCS: 36415; 36600; 71045; 80053; 82805; 83605; 83735; 83880; 84484; 85025; 85380; 85610; 85730; 87040; 87637; 94640; 96365; 96366; 96367; 96368; 96372; 96375; 99285; A9270; J0456; J0696; J1650; J2060; J2930; J3475; J3480; J7030

== ENCOUNTER 2023-07-01 12:45 | Emergency (ER) | payer OTHER, SELFPAY ==
--- NOTE | ~2023-07-01 | XR_ITS ---
XR shoulder LT min 2V 07/01/2023 13:21 Indication: Left shoulder pain Procedure: 4 views left shoulder Comparison: No prior studies for comparison. Findings: No fracture, subluxation or dislocation. No significant soft tissue abnormality. No foreign bodies. Impression: 1: No acute bone or joint abnormality. Reviewed, dictated and finalized at location B. Impression: 1: No acute bone or joint abnormality.
--- NOTE | ~2023-07-01 | CT_ITS ---
EXAMINATION:CT diagnostic chest wo con DATE: 07/01/2023 13:48 INDICATION: Abnormal chest radiograph. Chronic shortness of breath and cough. TECHNIQUE: Computed tomography (CT) of the chest was performed without intravenous contrast. Automate d exposure control and iterative reconstruction technique were employed. The dose-length product (DLP ) was 198.23 mGy-cm. COMPARISON: Chest 2 views 07/01/2023, chest CT 03/06/2023, 02/11/23, 05/20/22 FINDINGS: There is moderate emphysema. Calcified left lung nodules and calcified left hilar and media stinal lymph nodes are consistent with old granulomatous disease. There are centrilobular nodules in left lung lower lobe. There is a 5.4 x 2.3 cm cavitary mass with calcifications in right lung upper l obe that measured 5.9 x 2.7 cm on 03/10/2023 and 6.1 x 2.9 cm on 02/11/23. There is a small right pleu ral effusion. There is calcified atherosclerosis of the aorta and many of the other arteries. The hea rt size is normal. There are coronary artery calcifications. There is a small pericardial effusion. C alcifications in the spleen are consistent with old granulomatous disease. There is diffuse hepatic s teatosis. There is mild thoracic spondylosis and severe lumbar spondylosis. IMPRESSION: 1. Cavitary mass in right lung upper lobe with improvement from 02/11/2023, likely granulomatous dise ase. Noncontrast low-dose chest CT is recommended in 6 months. 2. Centrilobular nodules in left lung lower lobe, consistent with mild pneumonia. 3. Moderate emphysema. 4. Small right pleural effusion. 5. Small pericardial effusion. Reviewed, dictated and finalized at location A. IMPRESSION: 1. Cavitary mass in right lung upper lobe with improvement from 02/11/2023, lik harika granulomatous disease. Noncontrast low-dose chest CT is recommended in 6 mo nths. 2. Centrilobular nodules in left lung lower lobe, consistent with mild pneumoni a. 3. Moderate emphysema. 4. Small right pleural effusion. 5. Small pericardial effusion.
--- NOTE | ~2023-07-01 | XR_ITS ---
XR chest 2V 07/01/2023 13:21 Indication: Shortness of breath and chest pain Procedure: 2 view chest Comparison 06/02/2023: Findings: There is a developing cavitary spiculated mass right upper lobe, suspicious for malignancy. The lungs are hyperinflated which is consistent with, but not diagnostic of chronic obstructive pulm onary disease. Small right pleural effusion. Impression: 1: Developing spiculated right upper lobe mass, suspicious for bronchogenic carcinoma. Reviewed, dictated and finalized at location B. Impression: 1: Developing spiculated right upper lobe mass, suspicious for bronchogenic car cinoma.
--- NOTE | 2023-07-01 12:48 | ED.SOB ---
HPI - SOB/Dyspnea General Chief Complaint: Shortness of Breath/Dyspnea Stated Complaint: r/o pneumonia per home health request Source: patient Mode of arrival: ambulatory Limitations: no limitations History of Present Illness HPI Narrative: patient is a 73-year-old female sent to the ER from home health nurse. Patient has some left upper back shoulder blade pains with movement and cough. She has some shortness of breath. The nurse also noted that she has an irregular heartbeat. Patient does not have a history of AFib. No chest pain per se. MD elicited complaint: shortness of breath and pain with inspiration Pertinent past history: COPD Onset (ago): day(s) (2) Context: recent illness ( Patient just got out of the hospital at [facility] for 3 weeks secondary to pneumonia) Timing: constant and progressively worsening Severity: mild Exacerbating factors: nothing Relieving factors: nothing Known history of: COPD Associated symptoms: pain with inspiration, cough and chest congestion Treatment prior to arrival: other ( hospitalization for 3 weeks due to pneumonia over the last month) Related Data Home oxygen amount: none Home Medications Medication Instructions Recorded Confirmed albuterol sulfate 90 mcg/actuation 1 inh inhalation Q4H PRN Shortness 04/11/23 05/18/23 aerosol inhaler Of Breath fluticasone fur. 100 mcg-umeclid 1 inh inhalation DAILY 04/11/23 05/18/23 62.5 mcg-vilant 25 mcg inhalat.powder (Trelegy Ellipta) ipratropium 0.5 mg-albuterol 3 mg 3 ml inhalation Q6H PRN Shortness 04/11/23 05/18/23 (2.5 mg base)/3 mL nebulization Of Breath Or Wheezing soln potassium chloride 20 mEq 20 meq PO BID 04/13/23 05/18/23 tablet,extended release folic acid 1 mg tablet 1 mg PO DAILY 05/18/23 05/18/23 spironolactone 25 mg tablet 25 mg PO DAILY 05/18/23 05/18/23 thiamine HCl (vitamin B1) 100 mg 100 mg PO DAILY 05/18/23 05/18/23 tablet Allergies Allergy/AdvReac Type Severity Reaction Status Date / Time mercury (elemental) Allergy Unknown Verified 05/18/23 12:05 Iodine and Iodide Containing AdvReac Rash Verified 05/18/23 12:05 Produc Review of Systems Review of Systems: All systems reviewed & are unremarkable except as noted in HPI and below Constitutional: Constitutional: Reports no additional constitutional complaints Eyes: Eyes: Reports no additional eye complaints ENT: Reports system reviewed and no additional complaints, except as documented Cardiovascular: Cardiovascular: Reports no additional cardiovascular complaints Respiratory: Respiratory: Reports no additional respiratory complaints Gastrointestinal: Gastrointestinal: Reports no additional gastrointestinal complaints Genitourinary: Genitourinary: Reports no additional female genitourinary complaints Musculoskeletal: Musculoskeletal: Reports no additional musculoskeletal complaints Integumentary/Breasts: Skin/Breast: Reports system reviewed and no additional complaints, except as docu Neurologic: Reports system reviewed and no additional complaints, except as documented Psychiatric: Psychiatric: Reports no additional psychiatric complaints Endocrine: Endocrine: Reports no additional endocrine complaints Hematologic/Lymphatic: Hematologic/Lymphatic: Reports no additional hematologic/lymphatic complaints Allergic/Immunologic: Allergic/Immunologic: Reports no additional allergic/immunologic complaints PMFSH Past Medical History Medical History COPD (chronic obstructive pulmonary disease) Early satiety Elevated ferritin Elevated liver enzymes Family hx of colon cancer Fatty liver Gastritis and duodenitis History of bruising easily Hypertension Surgical History Surgical History H/O colonoscopy with polypectomy H/O tubal ligation History of appendectomy History of colon surgery cecum History of tooth extraction
--- NOTE | 2023-07-01 12:49 | ECG_ITS ---
Measurements Intervals [place] Rate: 104 P: 92 [place]: 150 QRS: 76 QRSD: 66 T: 81 QT: 338 QTc: 445 Interpretive Statements SINUS TACHYCARDIA ATRIAL PREMATURE COMPLEX BASELINE ARTIFACT- I, II, III, AVR, AVL, AVF, V1-V4 BORDERLINE ECG COMPARED TO ECG 06/02/2023 13:34:59 HEART RATE HAS DECREASED Electronically Signed On 07-01-2023 13:27:27 CDT by [place] Roman D.O.
[2023-07-01 12:54] VITALS: BP 98/70; PULSE 98; RESP 19; TEMP 36.8; O2SAT 94
[2023-07-01 13:05] LABS: Appearance Urine Sl Cloudy (Clear); Bilirubin Urine Negative (Negative); Blood Urine Negative (Negative); Color Urine Light Yellow (Yellow); Glucose Urine UA Negative (Negative); Ketones Urine Negative (Negative); Leukocyte Esterase Ur 3+ LEU/UL (Negative); Nitrate Urine Negative (Negative); Protein Urine Negative (Negative); Urobilinogen Urine 0.2 mg/dL (0.2-1.0)
[2023-07-01 13:13] LABS: Add Urine Microscopic? YES; Bacteria Urine 3+ /hpf; RBC Urine None seen /hpf (0-2); Squamous Epithelial Cell Urine Few /hpf (Few); WBC Urine 16-20 /hpf (0-3)
[2023-07-01 13:14] LABS: Basophils Absolute Auto 0.04 K/mm3 (0.00-0.10); Basophils Percent Auto 0.6 % (0.0-1.0); Eosinophils Absolute Auto 0.22 K/mm3 (0.02-0.50); Eosinophils Percent Auto 3.1 % (1.0-6.0); Hematocrit 38.6 % (35.0-42.0); Hemoglobin 12.3 g/dL (11.7-13.8); Immature Granulocyte Absolute 0.05 K/mm3 (0.00-0.00); Immature Granulocyte Percent A 0.7 % (0.0-0.0); Lymphocytes Percent Auto 30.7 % (18.0-42.0); Mean Corpuscular HGB Conc 31.9 g/dL (32-36); Mean Corpuscular Volume 100.5 fL (78.0-102.0); Mean Platelet Volume 9.2 fl (9.2-11.8); Monocytes Absolute Auto 0.82 K/mm3 (0.10-0.90); Monocytes Percent Auto 11.5 % (2.0-11.0); Neutrophils Absolute Auto 3.83 K/mm3 (1.70-7.20); Neutrophils Percent Auto 53.4 % (50.0-70.0); Platelet Count Result 486 K/mm3 (150-420); Red Blood Count 3.84 M/mm3 (4.20-5.40); Red Cell Distribution Width 13.3 % (11.6-14.4); White Blood Count 7.2 K/mm3 (4.8-10.8)
[2023-07-01 13:31] LABS: INR 1.1; Partial Thromboplastin Time 28.5 Sec (23.9-30.70)
[2023-07-01 13:35] LABS: Lactic Acid Reflex 1.4 mmol/L (0.4-2.0)
[2023-07-01 13:39] LABS: Alanine Aminotransferase 19 U/L (14-59); Albumin Level 2.8 g/dL (3.4-5.0); Alkaline Phosphatase 108 U/L (46-116); Anion Gap 8 mmol/L (4-12); Aspartate Amino Transferase 19 U/L (15-37); Bilirubin,Total 0.4 mg/dL (0.00-1.00); Blood Urea Nitrogen 10 mg/dL (7-18); Calcium 9.2 mg/dL (8.5-10.1); Carbon Dioxide 32 mmol/L (21-32); Chloride 99 mmol/L (98-108); Estimated CRCL calculation 48 ml/min; Estimated Glomerular Filt Rate > 60; Glucose 83 mg/dL (70-99); Lipase 19 U/L (16-77); NT Pro B Type Natriuretic Pept 1538 pg/mL (0-125); Osmolality Calculated 286 mOsm/kg (285-295); Potassium 3.2 mmol/L (3.5-5.1); Sodium 139 mmol/L (136-145); Total Protein 6.8 g/dL (6.4-8.2); Troponin I 7.3 ng/L (0.00-60.4)
[2023-07-01 14:22] VITALS: BP 110/69; PULSE 91; RESP 18; TEMP 37; O2SAT 95
[2023-07-01] MEDS: predniSONE 20 MG TABLET 40 MG PO (14:33)
[2023-07-01] MEDS: POTASSIUM CHLORIDE 20 MEQ ER TABLET PO (14:33)
[2023-07-01] MEDS: levoFLOXacin TAB 500 MG, levoFLOXacin TAB 250 MG 750 MG PO (14:33)
--- NOTE | 2023-07-04 13:53 | PC.NURSE ---
FINAL URINE CULTURE RESULTS: ISOLATE 1: GREATER THAN 100,000 CFU/ML OF KLEBSIELLA PNEUMONIAE UPON C&S RESULTS & PER DR MENSAH, PT TO STOP LEVAQUIN AND RX FOR AUGMENTIN 500-125MG PO, TID X5 DAYS. SENT TO [facility]. PT IS NOTIFIED AND VERBALIZED UNDERSTANDING OF INSTRUCTIONS. PT REPORTS SHE IS FEELING MUCH BETTER.
--- NOTE | 2023-07-07 13:29 | PC.NURSE ---
FINAL BLOOD CULTURE RESULTS: No growth after 5 days. No further action or treatment needed.
--- NOTE | 2023-07-09 13:41 | PC.NURSE ---
final blood cultures x2 reviewed. no growth after 5 days. no change in plan of care.
== END 2023-07-01 14:48 | disposition home or self-care (01) ==
PROVIDERS: Emergency Provider Emergency Medicine; PCP Family Medicine
DX: J18.9 Pneumonia, unspecified organism (principal); N39.0 Urinary tract infection, site not specified; I10 Essential (primary) hypertension; Z79.51 Long term (current) use of inhaled steroids; F17.210 Nicotine dependence, cigarettes, uncomplicated
CPT/HCPCS: 36415; 71046; 71250; 73030; 80053; 81001; 83605; 83690; 83880; 84484; 85025; 85610; 85730; 87040; 87077; 87086; 87088; 87186; 93005; 99284; A9270; J7512

== ENCOUNTER 2023-08-15 12:33 | Outpatient (CLI) | payer OTHER, SELFPAY ==
[2023-08-15 13:47] LABS: Alanine Aminotransferase 13 U/L (14-59); Albumin Level 3.1 g/dL (3.4-5.0); Alkaline Phosphatase 75 U/L (46-116); Anion Gap 10 mmol/L (4-12); Aspartate Amino Transferase 23 U/L (15-37); Bilirubin,Total 0.3 mg/dL (0.00-1.00); Blood Urea Nitrogen 7 mg/dL (7-18); Calcium 10.1 mg/dL (8.5-10.1); Carbon Dioxide 27 mmol/L (21-32); Chloride 99 mmol/L (98-108); Estimated Glomerular Filt Rate > 60; Glucose 66 mg/dL (70-99); Magnesium 1.6 mg/dL (1.8-2.4); Osmolality Calculated 278 mOsm/kg (285-295); Potassium 5.1 mmol/L (3.5-5.1); Sodium 136 mmol/L (136-145); Total Protein 6.7 g/dL (6.4-8.2)
== END 2023-08-15 12:34 | disposition home or self-care (01) ==
LOC: CHSLAB 12:34
PROVIDERS: PCP Family Medicine; Visit Provider Family Medicine
DX: E83.42 Hypomagnesemia (principal); E87.6 Hypokalemia
CPT/HCPCS: 36415; 80053; 83735

== ENCOUNTER 2023-09-02 13:05 | Outpatient (CLI) | payer OTHER, SELFPAY ==
[2023-09-02 14:20] LABS: Anion Gap 7 mmol/L (4-12); Blood Urea Nitrogen 8 mg/dL (7-18); Carbon Dioxide 27 mmol/L (21-32); Chloride 99 mmol/L (98-108); Estimated Glomerular Filt Rate > 60; Glucose 70 mg/dL (70-99); Osmolality Calculated 272 mOsm/kg (285-295); Potassium 4.6 mmol/L (3.5-5.1); Sodium 133 mmol/L (136-145)
== END 2023-09-02 13:06 | disposition home or self-care (01) ==
LOC: CHSLAB 13:07
PROVIDERS: PCP Family Medicine; Visit Provider Family Medicine
DX: E61.2 Magnesium deficiency (principal)
CPT/HCPCS: 36415; 80048

== ENCOUNTER 2023-09-15 14:20 | Emergency (ER) | payer OTHER, SELFPAY ==
[2023-09-15] VITALS (39 sets, daily range): BP systolic 101–150; BP diastolic 51–98; PULSE 97–142; RESP 18–39; TEMP 36.6–37.7; O2SAT 89–98
--- NOTE | ~2023-09-15 | XR_ITS ---
XR chest 1V portable Ordering provider: Carlo Freeman MD History: 73 years Female with . SOB, HX COPD . Comparison: July 01, 2023 FINDINGS: MEDIASTINUM: The cardiac silhouette is not enlarged. Calcified left hilar lymph nodes. Prominent right hilum. LUNGS: No infiltrates, effusions or pneumothorax. Prominent markings in the right lower lobe. OTHER: No free air under the diaphragm. IMPRESSION: Prominent markings in the right lower lobe. E pneumonia cannot be excluded. Clinical correlation advi sed. Reviewed, dictated and finalized at location A. IMPRESSION: Prominent markings in the right lower lobe. E pneumonia cannot be excluded. Cli nical correlation advised.
--- NOTE | 2023-09-15 14:31 | ECG_ITS ---
Test Date: 2023-09-15 14:51:54 Measurements Intervals [place] Rate: 131 P: -20 WA: 141 QRS: -3 QRSD: 67 T: -18 QT: 287 QTc: 424 Interpretive Statements SINUS TACHYCARDIA WITH FREQUENT SUPRAVENTRICULAR PREMATURE COMPLEXES ABNORMAL RHYTHM ECG No previous ECG available for comparison Electronically Signed On 09-16-2023 07:21:01 CDT by Carlo Vu M.D.
[2023-09-15] MEDS: IPRATROPIUM 0.5 MG/ALBUTEROL SULFATE 2.5 MG AMPUL.NEB 3 ML INHALATION (14:42)
[2023-09-15] MEDS: SODIUM CHLORIDE 0.9% IV 1,000 ML 999 ML IV CONT (14:47)
[2023-09-15] MEDS: methylPREDNISolone SOD SUCC 125 MG VIAL IV PUSH (14:47)
[2023-09-15 15:16] LABS: Basophils Absolute Auto 0.05 K/mm3 (0.00-0.10); Basophils Percent Auto 0.3 % (0.0-1.0); Eosinophils Absolute Auto 0.01 K/mm3 (0.02-0.50); Eosinophils Percent Auto 0.1 % (1.0-6.0); Hematocrit 43.8 % (35.0-42.0); Immature Granulocyte Absolute 0.14 K/mm3 (0.00-0.00); Immature Granulocyte Percent A 0.7 % (0.0-0.0); Lymphocytes Absolute Auto 3.09 K/mm3 (1.10-4.50); Mean Corpuscular Hemoglobin 28.9 pg (27.0-31.0); Mean Corpuscular Volume 90.3 fL (78.0-102.0); Mean Platelet Volume 9.5 fl (9.2-11.8); Monocytes Absolute Auto 1.83 K/mm3 (0.10-0.90); Monocytes Percent Auto 9.4 % (2.0-11.0); Neutrophils Absolute Auto 14.25 K/mm3 (1.70-7.20); Neutrophils Percent Auto 73.5 % (50.0-70.0); Platelet Count Result 169 K/mm3 (150-420); Red Blood Count 4.85 M/mm3 (4.20-5.40); Red Cell Distribution Width 17.2 % (11.6-14.4); White Blood Count 19.4 K/mm3 (4.8-10.8)
[2023-09-15 15:31] LABS: Ethanol 3 mg/dL (0-6)
[2023-09-15 15:32] LABS: INR 1.3; Partial Thromboplastin Time 30.2 Sec (23.9-30.70)
[2023-09-15 15:34] LABS: D Dimer 4.28 mg/L (0.19-0.50)
[2023-09-15 15:38] LABS: Lactic Acid Reflex 1.6 mmol/L (0.4-2.0)
[2023-09-15 15:39] LABS: Albumin Level 2.5 g/dL (3.4-5.0); Alkaline Phosphatase 109 U/L (46-116); Anion Gap 10 mmol/L (4-12); Bilirubin,Total 2.2 mg/dL (0.00-1.00); Blood Urea Nitrogen 16 mg/dL (7-18); Carbon Dioxide 29 mmol/L (21-32); Chloride 100 mmol/L (98-108); Estimated CRCL calculation 46 ml/min; Estimated Glomerular Filt Rate > 60; Glucose 100 mg/dL (70-99); Magnesium 1.2 mg/dL (1.8-2.4); NT Pro B Type Natriuretic Pept 4867 pg/mL (0-125); Osmolality Calculated 289 mOsm/kg (285-295); Potassium 3.7 mmol/L (3.5-5.1); Sodium 139 mmol/L (136-145); Total Protein 6.4 g/dL (6.4-8.2); Troponin I 9.4 ng/L (0.00-60.4)
--- NOTE | 2023-09-15 15:49 | ED.WEAKNESS ---
HPI - Weakness General Chief complaint: Weakness Stated complaint: weakness; disoriented Time Seen by Provider: 09/15/23 14:28 Source: patient and family Limitations: clinical condition History of Present Illness HPI Narrative: this is a 73-year-old female that presents from home with shortness of breath / dyspnea with some increased weakness cough and congestion patient subjectively has felt feverish 6. Patient denies any chest pain, there is no nausea or vomiting no flank pain or dysuria no hematuria. Patient has a history of COPD and alcohol abuse. MD Complaint: generalized weakness Onset (ago): day(s) Duration: constant Severity: moderate Related Data Home Medications Medication Instructions Recorded Confirmed albuterol sulfate 90 mcg/actuation 1 inh inhalation Q4H PRN Shortness 04/11/23 05/18/23 aerosol inhaler Of Breath fluticasone fur. 100 mcg-umeclid 1 inh inhalation DAILY 04/11/23 05/18/23 62.5 mcg-vilant 25 mcg inhalat.powder (Trelegy Ellipta) ipratropium 0.5 mg-albuterol 3 mg 3 ml inhalation Q6H PRN Shortness 04/11/23 05/18/23 (2.5 mg base)/3 mL nebulization Of Breath Or Wheezing soln potassium chloride 20 mEq 20 meq PO BID 04/13/23 05/18/23 tablet,extended release folic acid 1 mg tablet 1 mg PO DAILY 05/18/23 05/18/23 spironolactone 25 mg tablet 25 mg PO DAILY 05/18/23 05/18/23 thiamine HCl (vitamin B1) 100 mg 100 mg PO DAILY 05/18/23 05/18/23 tablet Allergies Allergy/AdvReac Type Severity Reaction Status Date / Time mercury (elemental) Allergy Unknown Verified 09/15/23 14:26 Iodine and Iodide Containing AdvReac Rash Verified 09/15/23 14:26 Produc Review of Systems Review of Systems: All systems reviewed & are unremarkable except as noted in HPI and below PMFSH Past Medical History Medical History COPD (chronic obstructive pulmonary disease) Early satiety Elevated ferritin Elevated liver enzymes Family hx of colon cancer Fatty liver Gastritis and duodenitis History of bruising easily Hypertension Surgical History Surgical History H/O colonoscopy with polypectomy H/O tubal ligation History of appendectomy History of colon surgery cecum History of tooth extraction S/P tonsillectomy Family History Family History Father Colon cancer Social History Social History Social History: She lives with a roommate. She is and has 4 children. She works for [employer] in [employer]. code status full code Smoking packs per day: 1 Smoking cigarettes per day: 20.0 Years smoked: 55 Smoking pack-years: 55.00 Smoking status: Heavy tobacco smoker Tobacco type: cigarettes Second hand tobacco smoke exposure: No Alcohol intake: current Drinks per week: 14 Alcohol use details: 5 shots per day Substance use: never Substance use type: does not use Lack of Transportation: No Lack of Food: Never True Current Housing: I Have Housing Concerned About Future Housing: No Difficulty Paying Gas/Electric Bills: No Difficulty Paying for Meds: No Currently Unemployed: No Education: High School Diploma/GED Difficulty w/ Childcare or Family Care: No Living arrangements: alone Occupation/Education: occupation 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
[2023-09-15 15:53] LABS: Appearance Urine Clear (Clear); Bilirubin Urine Negative (Negative); Blood Urine Negative (Negative); Color Urine Yellow (Yellow); Glucose Urine UA Negative (Negative); Ketones Urine Trace (Negative); Leukocyte Esterase Ur 1+ LEU/UL (Negative); Nitrate Urine Negative (Negative); Protein Urine Negative (Negative); Specific Grav Ur 1.015 (1.010-1.020)
[2023-09-15 15:53] LABS: SARS-CoV-2 RNA PCR Negative (Negative)
[2023-09-15 15:56] LABS: Aspartate Amino Transferase 14 U/L (15-37); Influenza A QL RT-PCR Negative (Negative); Influenza B QL RT-PCR Negative (Negative); RSV RNA, RT-PCR Negative (Negative)
[2023-09-15 16:06] LABS: Alanine Aminotransferase < 6 U/L (14-59)
[2023-09-15 16:07] LABS: Creatine Kinase 7 U/L (26-192)
[2023-09-15 16:10] LABS: Add Urine Microscopic? YES; RBC Urine None seen /hpf (0-2); Squamous Epithelial Cell Urine Moderate /hpf (Few); WBC Urine 31-50 /hpf (0-3)
[2023-09-15 16:11] LABS: Bacteria Urine 3+ /hpf; Mucus Urine Moderate /lpf
[2023-09-15] MEDS: MAGNESIUM SULF 2 GM/WATER 50ML 2 GM/50 ML BAG IVPB (16:20)
[2023-09-15] MEDS: dilTIAZem HCl INJ 25 MG/5 ML VIAL 5 MG IV PUSH ×2 (16:21→16:54)
--- NOTE | 2023-09-15 16:32 | PC.NURSE ---
Rn call to pharmacy, they are adjusting lovenox dosage.
[2023-09-15] MEDS: ENOXAPARIN 60 MG/0.6 ML SYRINGE 54 MG SUB-Q (16:52)
[2023-09-15] MEDS: AZITHROMYCIN 500 MG/NS 250 ML 500 MG/250 ML BAG 250 MG IVPB (16:56)
--- NOTE | 2023-09-15 19:01 | PC.NURSE ---
completed a belongings list on pt before EMS arrive
--- NOTE | 2023-09-15 19:12 | PC.NURSE ---
report received, pt sitting bedside awaiting EMS for transfer to [place]. She has some c/o SOB w/ exertion and VSS at this time.
--- NOTE | 2023-09-17 16:22 | PC.NURSE ---
call to khoa in [facility], updated on urine culture. faxed report to [facility]. [phone]
--- NOTE | 2023-09-18 16:26 | PC.NURSE ---
final urine culture report reviewed. > [id number] vancomycin resistant enterococcus faecium isolated. pt transferred to [facility] from this er visit. Nurse Anna contacted at [facility] 2nd surgical floor and notified of this report. stefanie Castillo states she will notifiy the attending physician of this report.
--- NOTE | 2023-09-21 12:10 | PC.NURSE ---
FINAL BLOOD CULTURE RESULTS X2: NO GROWTH AFTER 5 DAYS
--- NOTE | 2023-09-21 12:15 | PC.NURSE ---
FINAL BLOOD CULTURE RESULTS X2: NO GROWTH AFTER 5 DAYS
== END 2023-09-15 19:31 | disposition short-term general hospital (02) ==
PROVIDERS: Emergency Provider Emergency Medicine; PCP Family Medicine
DX: J44.9 Chronic obstructive pulmonary disease, unspecified (principal); J18.9 Pneumonia, unspecified organism; R79.89 Other specified abnormal findings of blood chemistry; R53.1 Weakness; I10 Essential (primary) hypertension; F17.210 Nicotine dependence, cigarettes, uncomplicated; Z20.822 Contact with and (suspected) exposure to COVID-19; Z79.899 Other long term (current) drug therapy
CPT/HCPCS: 36415; 71045; 80053; 80307; 81001; 82550; 83605; 83735; 83880; 84484; 85025; 85380; 85610; 85730; 87040; 87077; 87086; 87088; 87181; 87637; 93005; 94640; 96361; 96365; 96366; 96368; 96372; 96375; 99285; J0456; J0696; J1650; J2919; J3475; J7030

== ENCOUNTER 2023-09-15 20:08 | Inpatient (IN) | payer OTHER, SELFPAY ==
--- NOTE | ~2023-09-15 | XR_ITS ---
EXAMINATION: XR hip LT 2V w AP pelvis DATE: 09/18/2023 11:57 INDICATION: Severe left hip pain with ambulation TECHNIQUE: Anteroposterior view of the pelvis and anteroposterior and frog-leg lateral views of the l eft hip were obtained. COMPARISON: None. FINDINGS: Alignment is normal. No fracture or suspected osteonecrosis. Minimal osteoarthritis at the bilateral hip and sacroiliac joints. Moderate lower lumbar spondylosis. IMPRESSION: 1. Moderate lower lumbar spondylosis and minimal osteoarthritis at the bilateral hip and sacroiliac j oints. No acute osseous adenopathy. Reviewed, dictated and finalized at location A. IMPRESSION: 1. Moderate lower lumbar spondylosis and minimal osteoarthritis at the bilatera l hip and sacroiliac joints. No acute osseous adenopathy.
--- NOTE | ~2023-09-15 | CT_ITS ---
CT Scan of the Chest without Contrast: Clinical Indication: Right upper lobe cavitary lesion Technique: Contiguous sections were acquired throughout the chest without intravenous contrast. Dose reduction technique was used on this scan by utilizing automated exposure control and iterative recon struction technique. The dose-length product (DLP) was 145.72 mGy-cm. COMPARISON: 07/01/2023 Findings: There is no evidence of any significant mediastinal, hilar or axillary lymphadenopathy. Calcified med iastinal nodes are present. There are extensive atherosclerotic calcifications of the aorta and coron josr arteries. Small pericardial effusion is present, unchanged. Minimal right pleural effusion present with minimal right basilar atelectatic change. No left pleural effusion. Thick-walled irregular cavitary lesion at the right lung apex/right upper lobe is unchanged. There is moderate emphysema in the upper lobes. Centrilobular nodules at the left lower lobe are improved fro m prior exam. The lungs are clear. No pulmonary nodules or infiltrates are noted. Images through the upper abdomen reveal no abnormalities. Impression: Large thick-walled cavitary lesion in the right lung apex/right upper lobe is essentially unchanged f rom prior exam. Interval improvement in centrilobular nodules at the left lower lobe. Moderate emphysema. Minimal right pleural effusion with minimal right basilar atelectasis. Stable small pericardial effusion. Reviewed, dictated and finalized at location M. Impression: Large thick-walled cavitary lesion in the right lung apex/right upper lobe is e ssentially unchanged from prior exam. Interval improvement in centrilobular nodules at the left lower lobe. Moderate emphysema. Minimal right pleural effusion with minimal right basilar atelectasis. Stable small pericardial effusion.
--- NOTE | ~2023-09-15 | XR_ITS ---
XR chest 1V portable Ordering provider: Carlo Dickens MD History: 73 years Female with . COPD exacerbation . Comparison: September 15, 2023 FINDINGS: MEDIASTINUM: The cardiac silhouette is not enlarged. Calcified left hilar lymph nodes. LUNGS: No effusion or pneumothorax. Opacification in the right lung bases suggestive of atelectasis v ersus pneumonia. Underlying emphysematous changes. OTHER: No free air under the diaphragm. old ribs fractures in the right mid thorax. IMPRESSION: Opacification in the right lung bases suggestive of atelectasis versus pneumonia. Reviewed, dictated and finalized at location A. IMPRESSION: Opacification in the right lung bases suggestive of atelectasis versus pneumoni a.
--- NOTE | ~2023-09-15 | XR_ITS ---
EXAMINATION: XR chest 1V portable DATE: 09/19/2023 10:46 INDICATION: Atelectasis TECHNIQUE: frontal view of the chest was obtained. COMPARISON: Chest radiograph and CT dated 09/16/2023 FINDINGS: Moderate emphysema with biapical pleural-parenchymal scarring. There is persistent right apical opaci ty corresponding to the irregular cavitary nodule which has been identified and is being followed wit h CT imaging. No change in mild streaky opacities at bilateral lung bases which could represent atele ctasis or pneumonia. No pleural effusion or pneumothorax. The cardiomediastinal silhouette is normal. Calcified left lower lobe nodules along with calcified left hilar and mediastinal lymph nodes consis tent with old granulomatous disease. IMPRESSION: 1. Emphysema and unchanged streaky bibasilar atelectasis versus pneumonia. 2. Unchanged chronic right upper lobe cavitary mass which is being followed with CT. Reviewed, dictated and finalized at location A. IMPRESSION: 1. Emphysema and unchanged streaky bibasilar atelectasis versus pneumonia. 2. Unchanged chronic right upper lobe cavitary mass which is being followed wit h CT.
--- NOTE | ~2023-09-15 | US_ITS ---
EXAMINATION: US venous doppler [facility] DATE: 09/16/2023 07:53 INDICATION: Lower limb pain and swelling. TECHNIQUE: Grayscale ultrasound images without and with compression and Doppler ultrasound images of the bilateral lower extremity veins were obtained. COMPARISON: None. FINDINGS: Noncompressible deep venous thrombosis in one of the paired right popliteal veins. The second right p opliteal vein is patent and compressible. The visualized portions of right common femoral vein, profu nda (deep) femoral vein, femoral vein, peroneal trunk, posterior tibial veins, peroneal veins, gastro cnemius vein and greater saphenous vein outflow are patent. Noncompressible occlusive and near occlusive thrombus in the left common femoral vein, profunda femor al vein, femoral vein, popliteal vein, peroneal trunk, posterior tibial veins and peroneal veins. The left gastrocnemius vein and greater saphenous vein remain patent. IMPRESSION: 1. Extensive deep venous thrombosis throughout the left lower limb with additional small amount of d eep venous thrombosis in one of the paired right popliteal veins. Findings were discussed with Laura Wright, the nurse caring for the patient, at 8:05 AM. Reviewed, dictated and finalized at location A. IMPRESSION: 1. Extensive deep venous thrombosis throughout the left lower limb with additi onal small amount of deep venous thrombosis in one of the paired right poplitea l veins. Findings were discussed with Laura Wright, the nurse caring for the patient, at 8:05 AM.
--- NOTE | ~2023-09-15 | XR_ITS ---
EXAMINATION: XR lumbar spine 2-3V DATE: 09/18/2023 11:57 INDICATION: Right-sided lower back pain TECHNIQUE: Anteroposterior and lateral views of the lumbar spine, and cone-down lateral view of the l umbosacral junction were obtained. COMPARISON: 03/19/2016 FINDINGS: Mild S-shaped scoliosis of the lumbar and lower thoracic spine with 14 degree dextro scoliosis betwee n T12 and L3 and 13 degrees levoscoliosis between L3 and L5. 3 mm anterolisthesis L4 on L5. Vertebral body heights are normal. Severe disc height loss with associated Modic type III sclerotic endplate c hanges at the left side of L1-L2 and right side of L4-L5. Moderate disc height loss diffusely at L2-L 3 on the right side of L3-L4 and left side of L4-L5. There is moderate to severe lower lumbar predomi nant facet osteoarthritis. Mild bilateral sacroiliac osteoarthritis. Atherosclerotic abdominal aorta. Multiple splenic calcifications consistent with old granulomatous disease. IMPRESSION: 1. S-shaped scoliosis of the lumbar and lower thoracic spine with severe spondylosis. Reviewed, dictated and finalized at location A. IMPRESSION: 1. S-shaped scoliosis of the lumbar and lower thoracic spine with severe spondy losis.
[2023-09-15 20:05] VITALS: BMI 17.6
[2023-09-15 20:07] VITALS: BP 109/69; PULSE 123; RESP 20; TEMP 37.1; O2SAT 90
--- NOTE | 2023-09-15 20:16 | ADMGEN ---
This patient, Stefanie Raymundo, was admitted to IMU Room 231-01. Patient/family oriented to hospital policies and general routines including ID bracelet, bed and alarms, visiting hours, pain management, procedures, bathroom and other care routines, personal items, smoking policy, room service/diet, and visiting hours. Information on how to activate the Rapid Response Team has been discussed. Patient/Family are encouraged to report perceived risks to care and to ask questions if they do not understand what they are told or what they should do.
[2023-09-15 20:24] VITALS: PULSE 122
--- NOTE | 2023-09-15 21:17 | PC.NURSE ---
Dr. Mclaughlin notified of patient arrival at 20:40. Awaiting orders at this time.
--- NOTE | 2023-09-15 21:18 | PM.IMHP ---
H&P: HPI History of Present Illness Date/Time: 09/15/23 21:18 Chief Complaint: weakness Narrative: This is a 73-year-old female with past medical history significant for COPD/ emphysema, hypertension, tobacco dependence, fatty liver disease. patient comes as a transfer from outside facility was brought to the emergency room for altered mental status however patient states that she has been very weak which is getting worse in the course of the last few days, patient denies any fevers, rigors, chills, nausea, vomiting, diarrhea, shortness of breath, cough, sputum production, muscle aches and pain. in emergency room patient was found to be tachycardic, preliminary workup was significant [place] a [place] [address], D-dimer was 4.4, brain natriuretic peptide was 4000, patient tested negative for influenza type A influenza type B COVID and RSV. XR chest 1V portable Ordering provider: Carlo Freeman MD History: 73 years Female with . SOB, HX COPD . Comparison: July 01, 2023 FINDINGS: MEDIASTINUM: The cardiac silhouette is not enlarged. Calcified left hilar lymph nodes. Prominent right hilum. LUNGS: No infiltrates, effusions or pneumothorax. Prominent markings in the right lower lobe. OTHER: No free air under the diaphragm. IMPRESSION: Prominent markings in the right lower lobe. E pneumonia cannot be excluded. Clinical correlation advised. Review of Systems Review of Systems: generalized weakness. Constitutional: Constitutional: Denies chills, Denies fever(s), Denies malaise, Reports poor appetite and Reports weakness Eyes: Eyes: Denies change in vision ENT: Denies dysphagia, Denies vertigo, Denies dizziness, Denies nasal congestion, Denies nasal discharge and Denies odynophagia Cardiovascular: Cardiovascular: Denies chest pain, Denies radiating jaw, neck or arm pain and Denies palpitations Respiratory: Respiratory: Denies change in phlegm color, Denies chest congestion, Denies cough and Denies excessive phlegm production Gastrointestinal: Gastrointestinal: Denies abdominal pain, Denies dyspepsia, Denies heartburn, Denies diarrhea, Denies nausea and Denies vomiting Genitourinary: Genitourinary: Denies dysuria Musculoskeletal: Musculoskeletal: Reports muscle weakness Integumentary/Breasts: Skin/Breast: Denies rash Neurologic: Denies focal weakness and Denies Sensory deficit (Neuro) Psychiatric: Psychiatric: Reports no additional psychiatric complaints and Reports as per HPI Endocrine: Endocrine: Denies cold intolerance, Denies heat intolerance, Denies polyphagia, Denies polydipsia and Denies polyuria Hematologic/Lymphatic: Hematologic/Lymphatic: Reports no additional hematologic/lymphatic complaints and Reports as per HPI Allergic/Immunologic: Allergic/Immunologic: Reports no additional allergic/immunologic complaints and Reports as per HPI [facility] Past Medical History Medical History COPD (chronic obstructive pulmonary disease) Early satiety Elevated ferritin Elevated liver enzymes Family hx of colon cancer Fatty liver Gastritis and duodenitis History of bruising easily Hypertension Surgical History Surgical History H/O colonoscopy with polypectomy H/O tubal ligation History of appendectomy History of colon surgery cecum History of tooth extraction S/P tonsillectomy Family History Family History (Updated 09/15/23 @ 20:33 by Hank Michael RN) Father Colon cancer Mother Heart failure Social History Social History Social History: She lives with a roommate. She is and has 4 children. 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 code status full code Smoking packs per day: 1.5 Smoking cigarettes per day: 30.0 Years smoked: 60 Smoking pack-years: 90.00 Smoking statu
[2023-09-15 22:00] VITALS: PULSE 108
[2023-09-15 23:50] VITALS: BP 111/57; PULSE 99; RESP 20; TEMP 36.4; O2SAT 98
[2023-09-15 23:56] VITALS: PULSE 99; RESP 20; O2SAT 98
[2023-09-16] VITALS (22 sets, daily range): BP systolic 105–135; BP diastolic 58–76; PULSE 65–131; RESP 16–22; TEMP 36.4–37.2; O2SAT 90–100; BMI 17.6
--- NOTE | 2023-09-16 | ECHO_ITS ---
Patient Info Name: Stefanie Raymundo Age: 73 years : 1950 Gender: Female Ht: 65 in Wt: 106 lbs BSA: 1.47 m2 HR: 88 bpm BP: 135 / 72 mmHg Technical Quality: Good Exam Date: 09/16/2023 8:58 AM Exam Location: Echo Lab Patient Status: Inpatient Admit Date: 09/15/2023 Staff Ordering Physician: Reed Mclaughlin MD Floor Assembler: Van Palomino RDCS Attending Provider: Mckenzie Perez MD Referring Physician: Arnoldo CRUZ; Exam Type: CA echo doppler color flow Study Info Indications - elevated BNP Complete two-dimensional, color flow and Doppler transthoracic echocardiogram is performed. Summary 1. Complete two-dimensional, color flow and Doppler transthoracic echocardiogram is performed. 2. Left ventricular chamber dimension is normal. 3. Left ventricular systolic function is normal, estimated at 65-70%. 4. The left ventricular diastolic function is grade I diastolic dysfunction. 5. E/e' 5 is not elevated. 6. No pulmonary hypertension, estimated pulmonary arterial systolic pressure is 36 mmHg. 7. There is small circumferential pericardial effusion. Left Ventricle E/e' 5 is not elevated. Left ventricular chamber dimension is normal. Left ventricular systolic function is normal, estimated at 65-70%. The left ventricular diastolic function is grade I diastolic dysfunction. Right Ventricle Right ventricular chamber dimension is normal. Right ventricular systolic function is normal. Left Atria Left atrial chamber dimension is normal. Right Atria Right atrial chamber dimension is normal. Aortic Valve The aortic valve is probable trileaflet. There is no aortic valve stenosis. There is no aortic valve regurgitation. Pulmonic Valve There is no pulmonic regurgitation. Mitral Valve There is no mitral valve stenosis. There is no mitral valve regurgitation. Tricuspid Valve There is no tricuspid valve regurgitation. No pulmonary hypertension, estimated pulmonary arterial systolic pressure is 36 mmHg. Pericardium/Pleural No cardiac tamponade. There is small circumferential pericardial effusion. Inferior Vena Cava Normal inferior vena cava with >50% collapse upon inspiration consistent with normal right atrial pressure, 5 mmHg. Aorta The aortic root size at the sinus of Valsalva is normal. Left Ventricular Outflow Tract Name Value Normal LVOT 2D LVOT Diameter 2.0 cm LVOT Doppler LVOT Peak Gradient 9 mmHg LVOT Mean Gradient 4 mmHg LVOT VTI 25 cm LVOT VTI/AV VTI Ratio 1.1 LVOT Stroke Volume 78 ml LVOT CO 9.1 l/min LVOT CI 6.2 l/min/m2 Pulmonic Valve Name Value Normal PV Doppler PV Peak Gradient 5 mmHg Mitral Valve Name
[2023-09-16] MEDS: IPRATROPIUM 0.5 MG/ALBUTEROL SULFATE 2.5 MG AMPUL.NEB 3 ML INHALATION ×3 (01:33→13:41)
[2023-09-16] MEDS: ENOXAPARIN 60 MG/0.6 ML SYRINGE 50 MG SUB-Q ×2 (03:29→12:36)
[2023-09-16] MEDS: FLUTICASONE/UMECLIDIN/VILANTER 100-62.5-25 MCG ELLIPTA 1 PUFF INHALATION (07:41)
[2023-09-16 09:19] LABS: Basophils Percent Auto 0.1 % (0.2-1.2); Hematocrit 44.5 % (37.0-47.0); Hemoglobin 14.5 g/dL (12.0-15.0); Immature Granulocyte Absolute 0.12 K/mm3 (0.00-0.031); Immature Granulocyte Percent A 0.7 % (0-0.5); Lymphocytes Absolute Auto 1.02 K/mm3 (0.9-3.2); Lymphocytes Percent Auto 5.7 % (18.3-44.2); Mean Corpuscular HGB Conc 32.6 g/dl (32-36); Mean Corpuscular Hemoglobin 30.2 pg (26-34); Mean Corpuscular Volume 92.7 fl (80-100); Mean Platelet Volume 10.2 fl (7.4-10.4); Monocytes Absolute Auto 0.5 K/mm3 (0.1-0.6); Monocytes Percent Auto 2.9 % (2.6-8.5); Neutrophils Absolute Auto 16.2 K/mm3 (1.3-6.7); Neutrophils Percent Auto 90.6 % (45.5-73.1); Platelet Count Result 174 k/mm3 (150-375); Red Cell Distribution Width 17.8 % (11.5-14.5); White Blood Count 17.9 K/mm3 (4.5-10.0)
[2023-09-16 09:24] LABS: Glucose Point of Care 202 mg/dl (65-105)
[2023-09-16 09:40] LABS: Phosphorus 2.6 mg/dL (2.5-4.5)
[2023-09-16 09:43] LABS: Albumin Level 3.5 g/dL (3.5-5.1); Alkaline Phosphatase 109 U/L (38-126); Anion Gap 9 mmol/L (4-12); Aspartate Amino Transferase 20 U/L (14-36); Bilirubin,Total 1.1 mg/dL (0.2-1.3); Blood Urea Nitrogen 21 mg/dL (7-17); Calcium 9.7 mg/dL (8.4-10.2); Carbon Dioxide 27 mmol/L (22-30); Chloride 104 mmol/L (98-107); Estimated CRCL calculation 55 ml/min; Estimated Glomerular Filt Rate > 60; Glucose 190 mg/dL (65-110); Magnesium 1.9 mg/dL (1.6-2.3); Potassium 3.8 mmol/L (3.4-5.0); Sodium 140 mmol/L (137-145)
[2023-09-16] MEDS: FOLIC ACID 1 MG TABLET PO (09:48)
[2023-09-16] MEDS: THIAMINE HCL 100 MG TABLET PO (09:48)
[2023-09-16] MEDS: FUROSEMIDE INJ 40 MG/4 ML VIAL IV PUSH (09:48)
[2023-09-16 09:50] LABS: Alanine Aminotransferase 16 U/L (6-35)
[2023-09-16 10:03] LABS: Creatine Kinase 24 U/L (30-135)
--- NOTE | 2023-09-16 10:14 | PM.IMPN ---
Progress Note: A&P Assessment and Plan (1) Acute UTI: Code(s): N39.0 - Urinary tract infection, site not specified Status: Acute (2) Weakness: Code(s): R53.1 - Weakness Status: Acute (3) Nicotine dependence: Qualifiers: Nicotine product type: cigarettes Substance use status: unspecified nicotine-induced disorder Qualified Code(s): F17.219 - Nicotine dependence, cigarettes, with unspecified nicotine-induced disorders Code(s): F17.200 - Nicotine dependence, unspecified, uncomplicated Status: Chronic (4) Fatty liver: Code(s): K76.0 - Fatty (change of) liver, not elsewhere classified Status: Acute (5) D-dimer, elevated: Code(s): R79.89 - Other specified abnormal findings of blood chemistry Status: Inactive (6) CHF (congestive heart failure): Code(s): I50.9 - Heart failure, unspecified Status: Acute (7) COPD (chronic obstructive pulmonary disease): Qualifiers: COPD type: unspecified COPD Qualified Code(s): J44.9 - Chronic obstructive pulmonary disease, unspecified Code(s): J44.9 - Chronic obstructive pulmonary disease, unspecified Status: Acute (8) Mildly underweight adult: Code(s): R63.6 - Underweight Status: Acute Plan 73-year-old female with past medical history of COPD/emphysema hypertension tobacco dependence fatty liver disease presented from outside facility for altered mental status. Patient has been feeling weak over the past few days. No fever chills nausea vomiting diarrhea shortness of breath. Cough sputum production. In the ER she was found to be tachycardic and tachypneic adequate oxygen saturation on arrival to the ED but heart rate of 126 blood pressure 141/84.. Received a dose of IV Cardizem 5 mg in the ER. Laboratory workup revealed WBC count of 19,000 D-dimer is elevated at 4.4 BNP 4000. COVID flu and RSV swab was negative. Chest x-ray showed prominent markings in the right lower lobe pneumonia cannot be excluded. Clinical correlation advised. She was transferred here for further evaluation and management. Patient was started on Rocephin. Follow blood cultures. PT OT to see. Nicotine patch for tobacco abuse. Venous duplex was done which showed extensive DVT throughout the left lower limb with additional small amount of DVT in 1 of the paired right popliteal veins. She has been placed on Lovenox therapeutic dose CT chest noncontrast low-dose chest CT recommended in 6 months. Echo with EF 65-70% grade 1 diastolic dysfunction small circumferential pericardial effusion. No significant valvular abnormality. Will get CTA chest to further evaluate for PE however as IV contrast allergy. Will do without contrast to re-evaluate irregular cavitary lesion right upper lobe DVT prophylaxis on Lovenox full dose Subjective Date/time seen: 09/16/23 10:14 Interval history: Feeling a little better today. Stop drinking 3 months ago. Continues to smoke. No chest pain. Chronic cough due to COPD Review of Systems Review of Systems: All systems reviewed & are unremarkable except as noted in HPI and below Exam Narrative: GENERAL: The patient is well developed, not in acute distress HEENT: Nonicteric sclerae, PERRLA, EOMI. Oropharynx clear. Moist mucous membranes. Conjunctivae appear well perfused. CHEST: Chest wall is nontender. HEART: Regular rate and rhythm without murmur, rubs, or gallops LUNGS: Mildly tachypneic, coarse breath sounds bilaterally, no wheezes ABDOMEN: Soft, positive bowel sounds, non-tender, no organomegaly. SKIN: No rash, no excessive bruising, petechiae, or purpura. NEUROLOGIC: Cranial nerves II-XII intact, alert and oriented x 3, no gross motor deficits EXTREMITIES: no edema, cyanosis or clubbing Objective Data Vital Signs Vital Signs: Vital Signs - 24 hr 09/15/23 20:36 09/15/23 20:07 09/15/23 20:24 Temperature 98.8 F Pulse Rate 123 H 122 H Respiratory
[2023-09-16] MEDS: NICOTINE (*PBKC) 21 MG PATCH 1 PATCH TRANSDERM (10:22)
[2023-09-16 11:52] LABS: Glucose Point of Care 121 mg/dl (65-105)
[2023-09-16] MEDS: AZITHROMYCIN 500 MG/NS 250 ML 500 MG/250 ML BAG 250 MG IVPB (12:37)
--- NOTE | 2023-09-16 15:56 | PM.CNPUL ---
Assessment and Plan Assessment and plan (1) COPD exacerbation: Code(s): J44.1 - Chronic obstructive pulmonary disease with (acute) exacerbation Status: Acute Assessment and Plan: gold grade 2 group E COPD Patient with 100 pack year tobacco use, continues to smoke currently at 1 and half packs per day, alpha 1 anti trypsin genotype MM, she requires no oxygen, prior blood gas on 06/02/2023 with a pH of 7.57/34/74 without hypercarbic respiratory failure. 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 She is maintained on trilogy 100. White blood cell count equals 19.4 was 0.1% eosinophils=19/uL. Patient presents now with 2 day history of worsening cough, worsening shortness of breath, no worsening of her phlegm production. She is found to have a UTI, leukocytosis and lower extremity DVT. She has a dye allergy and CT angiogram was not performed. She was treated with bronchodilators, ceftriaxone and azithromycin as well as IV Lasix. Plan: I will treat the patient for a COPD exacerbation. At this time she also has evidence of a UTI and DVT (possible PE). She told me that steroids make her heart rate goes fast. Currently her heart rate is 120-130 and she is receiving p.o. metoprolol. She is in no respiratory distress, her oxygen levels are stable on room air and she has no wheezing. I will discontinue her trelegy inhaler to stop her beta agonist and place her on inhaled a long-acting muscarinic antagonist Incruse Ellipta 62.5 starting 09/17/2023. At this time I will attempt to treat her without systemic or inhaled corticosteroids and follow her clinically. The patient is currently being treated with ceftriaxone and azithromycin she does have a UTI and a small right effusion and basilar infiltrate that may be consistent with pneumonia or atelectasis. I will repeat a chest x-ray on 09/16 to assess for progression. (2) DVT (deep venous thrombosis): Code(s): I82.409 - Acute embolism and thrombosis of unspecified deep veins of unspecified lower extremity Status: Acute Assessment and Plan: Patient developed left greater than right lower extremity pain on 09/13 and is found to have DVT in 1 of 2 right popliteal veins and a near occlusive thrombus in the left, oral fem and rolled vein. She has been hemodynamically stable on room air with adequate saturation. She has an elevated BNP, and an echocardiogram with normal LVEF, grade 1 diastolic dysfunction, normal right ventricular size and function, normal right atrial size and PASP of 36. There is no evidence of right heart strain. She does remain tachycardic and this is been a chronic problem for her. She denies E any recent car trips, plane trips, trained trips, leg trauma or prolong sedentary periods of time. She has no history of blood clots and no family history of blood clots. Plan: Agree with Lovenox 50 mg q.12 hours For unprovoked DVT. she may have a PE as well. Agree with no CT angiogram of the chest as she has the iodine contrast allergy. Once she is stabilized and will not need any procedures can switch to DOAC that her insurance will cover. (3) Right upper lobe consolidation: Code(s): J18.1 - Lobar pneumonia, unspecified organism Status: Acute Assessment and Plan: Regarding right upper lobe cavitary lesion: Low-dose CT scan on 05/20/2022 with moderate apical predominant centrilobular emphysema without cavity. 08/12/2022 patient was admitted for right upper lobe pneumonia treated with azithromycin ceftriaxone Discharged on azithromycin and cefdinir. 11/29/2022 rib x-rays demonstrated right upper lobe scarring. Chest CT 02/11/23 - Right upper lobe airspace opacities, some demonstrating thick-walled cavitation, likely pneumonia. Recommend imaging follow-up to resolution after appropriate therapy with biopsy if findings do not resolve. Chest CT 03/10/23 - Irr
--- NOTE | 2023-09-16 16:39 | ECG_ITS ---
Test Date: 2023-09-16 16:45:50 Measurements Intervals [place] Rate: 120 P: 70 DE: 173 QRS: 29 QRSD: 79 T: 22 QT: 298 QTc: 423 Interpretive Statements SINUS TACHYCARDIA WITH FREQUENT SUPRAVENTRICULAR PREMATURE COMPLEXES ABNORMAL RHYTHM ECG INTERPRETATION BASED ON A DEFAULT AGE OF 40 YEARS Compared to ECG 09/15/2023 14:51:54 No significant changes Electronically Signed On 09-18-2023 12:43:08 CDT by Paolo Rincon M.D.
[2023-09-16 16:56] LABS: Glucose Point of Care 109 mg/dl (65-105)
[2023-09-16] MEDS: METOPROLOL TARTRATE 12.5 MG TABLET PO (17:08)
[2023-09-17] VITALS (10 sets, daily range): BP systolic 99–130; BP diastolic 58–79; PULSE 73–118; RESP 16–28; TEMP 36.4–37; O2SAT 96–100
[2023-09-17 00:38] LABS: Glucose Point of Care 109 mg/dl (65-105)
[2023-09-17] MEDS: ENOXAPARIN 60 MG/0.6 ML SYRINGE 50 MG SUB-Q ×2 (04:03→13:06)
[2023-09-17] MEDS: NICOTINE (*PBKC) 21 MG PATCH 1 PATCH TRANSDERM (08:06)
[2023-09-17] MEDS: FOLIC ACID 1 MG TABLET PO (08:07)
[2023-09-17] MEDS: METOPROLOL TARTRATE 12.5 MG TABLET PO ×2 (08:07→20:40)
[2023-09-17] MEDS: THIAMINE HCL 100 MG TABLET PO (08:07)
--- NOTE | 2023-09-17 09:08 | PM.IMPN ---
Progress Note: A&P Assessment and Plan (1) Pneumonia: Qualifiers: Laterality: unspecified laterality Lung location: unspecified part of lung Pneumonia type: due to unspecified organism Qualified Code(s): J18.9 - Pneumonia, unspecified organism Code(s): J18.9 - Pneumonia, unspecified organism Status: Acute Assessment and Plan: RLL Continue ceftriaxone and azithromycin (2) COPD (chronic obstructive pulmonary disease): Qualifiers: COPD type: unspecified COPD Qualified Code(s): J44.9 - Chronic obstructive pulmonary disease, unspecified Code(s): J44.9 - Chronic obstructive pulmonary disease, unspecified Status: Acute Assessment and Plan: Approaching baseline (no oxygen requirement) Avoiding beta-agonists and steroids Continue on med-telemetry due to sinus tach with PAC's (3) Acute UTI: Code(s): N39.0 - Urinary tract infection, site not specified Status: Acute Assessment and Plan: started on Rocephin 09/14 6 enterococcus growing (4) DVT (deep venous thrombosis): Code(s): I82.409 - Acute embolism and thrombosis of unspecified deep veins of unspecified lower extremity Status: Acute Assessment and Plan: LLE 09/16 transition from enoxaparin to apixaban (5) CHF (congestive heart failure): Code(s): I50.9 - Heart failure, unspecified Status: Acute Assessment and Plan: 1. Complete two-dimensional, color flow and Doppler transthoracic echocardiogram is performed. 2. Left ventricular chamber dimension is normal. 3. Left ventricular systolic function is normal, estimated at 65-70%. 4. The left ventricular diastolic function is grade I diastolic dysfunction. 5. E/e' 5 is not elevated. 6. No pulmonary hypertension, estimated pulmonary arterial systolic pressure is 36 mmHg. 7. There is small circumferential pericardial effusion. 09/15 furosemide stopped (6) Fatty liver: Code(s): K76.0 - Fatty (change of) liver, not elsewhere classified Status: Acute Assessment and Plan: follow-up in outpatient setting (7) Right upper lobe consolidation: Code(s): J18.1 - Lobar pneumonia, unspecified organism Status: Acute Assessment and Plan: Chronic and stable CT CHEST Large thick-walled cavitary lesion in the right lung apex/right upper lobe is essentially unchanged from prior exam. Interval improvement in centrilobular nodules at the left lower lobe. Moderate emphysema. Minimal right pleural effusion with minimal right basilar atelectasis. Stable small pericardial effusion. (8) Nicotine dependence: Qualifiers: Nicotine product type: cigarettes Substance use status: unspecified nicotine-induced disorder Qualified Code(s): F17.219 - Nicotine dependence, cigarettes, with unspecified nicotine-induced disorders Code(s): F17.200 - Nicotine dependence, unspecified, uncomplicated Status: Chronic Assessment and Plan: nicotine patch as needed Subjective Date/time seen: 09/17/23 09:08 Interval history: Feeling much better. No complaint pain. No GI or complaints. No abnormal bleeding. No shortness of breath with ADLs or conversation. Denied palpitations. Review of Systems Review of Systems: All systems reviewed & are unremarkable except as noted in HPI and below Exam Narrative: HEENT: PERRL, sclerae nonicteric, pharyngeal mucosa pink and intact NECK: No JVD, adenopathy, or thyromegaly CHEST: Clear to auscultation with diminished breath sounds throughout. No wheezes crackles or rhonchi. Normal effort. HEART: NL S1/S2, irregular, tachycardic. ABDOMEN: BS+, soft, nontender, no mass, no bruits EXTREMITIES: No cyanosis, edema, or clubbing NEUROLOGIC: CN intact and symmetric to inspection. MUSCULOSKELETAL: Tone and strength symmetric. PSYCH: Alert. Oriented to person, place, and time. Objective Data Vital Signs
[2023-09-17] MEDS: UMECLIDINIUM BROMIDE 62.5 MCG ELLIPTA 1 PUFF INHALATION (09:09)
[2023-09-17] MEDS: AZITHROMYCIN 500 MG/NS 250 ML 500 MG/250 ML BAG 250 MG IVPB (11:04)
--- NOTE | 2023-09-17 12:26 | PC.NURSE ---
Updated daughter, Cindy, via telephone on plan of care and patient condition.
[2023-09-17] MEDS: ACETAMINOPHEN 325 MG TABLET 650 MG PO (20:39)
[2023-09-17] MEDS: LINEZOLID 600 MG TABLET PO (20:40)
[2023-09-17] MEDS: MORPHINE SULFATE (*CRX) 2 MG/ML INJ IV PUSH (21:30)
[2023-09-18] VITALS (11 sets, daily range): BP systolic 110–126; BP diastolic 56–71; PULSE 75–95; RESP 16–18; TEMP 36.2–36.6; O2SAT 92–99
[2023-09-18] MEDS: ENOXAPARIN 60 MG/0.6 ML SYRINGE 50 MG SUB-Q (01:05)
--- NOTE | 2023-09-18 03:25 | PC.NURSE ---
This patient, Stefanie Raymundo, was transferred to [facility] on 09/18/23 at 0300. Personal belongings sent with patient. Report given to Beto. Appropriate documentation sent with patient.
[2023-09-18] MEDS: UMECLIDINIUM BROMIDE 62.5 MCG ELLIPTA 1 PUFF INHALATION (07:33)
[2023-09-18] MEDS: METOPROLOL TARTRATE 12.5 MG TABLET PO ×2 (08:38→20:06)
[2023-09-18] MEDS: NICOTINE (*PBKC) 21 MG PATCH 1 PATCH TRANSDERM (08:38)
[2023-09-18] MEDS: FOLIC ACID 1 MG TABLET PO (08:38)
[2023-09-18] MEDS: THIAMINE HCL 100 MG TABLET PO (08:38)
[2023-09-18] MEDS: LINEZOLID 600 MG TABLET PO ×2 (08:38→20:06)
--- NOTE | 2023-09-18 11:15 | PM.IMPN ---
Progress Note: A&P Assessment and Plan (1) Pneumonia: Qualifiers: Laterality: unspecified laterality Lung location: unspecified part of lung Pneumonia type: due to unspecified organism Qualified Code(s): J18.9 - Pneumonia, unspecified organism Code(s): J18.9 - Pneumonia, unspecified organism Status: Acute Assessment and Plan: RLL Continue ceftriaxone and azithromycin (2) COPD (chronic obstructive pulmonary disease): Qualifiers: COPD type: unspecified COPD Qualified Code(s): J44.9 - Chronic obstructive pulmonary disease, unspecified Code(s): J44.9 - Chronic obstructive pulmonary disease, unspecified Status: Acute Assessment and Plan: Approaching baseline (no oxygen requirement) Avoiding beta-agonists and steroids Continue on med-telemetry due to sinus tach with PAC's (3) Acute UTI: Code(s): N39.0 - Urinary tract infection, site not specified Status: Acute Assessment and Plan: started on Rocephin 09/14 09/16 enterococcus growing so added linezolid in the PM (4) DVT (deep venous thrombosis): Code(s): I82.409 - Acute embolism and thrombosis of unspecified deep veins of unspecified lower extremity Status: Acute Assessment and Plan: LLE 09/16 transition from enoxaparin to apixaban (5) CHF (congestive heart failure): Code(s): I50.9 - Heart failure, unspecified Status: Acute Assessment and Plan: 1. Complete two-dimensional, color flow and Doppler transthoracic echocardiogram is performed. 2. Left ventricular chamber dimension is normal. 3. Left ventricular systolic function is normal, estimated at 65-70%. 4. The left ventricular diastolic function is grade I diastolic dysfunction. 5. E/e' 5 is not elevated. 6. No pulmonary hypertension, estimated pulmonary arterial systolic pressure is 36 mmHg. 7. There is small circumferential pericardial effusion. 09/15 furosemide stopped (6) Fatty liver: Code(s): K76.0 - Fatty (change of) liver, not elsewhere classified Status: Acute Assessment and Plan: follow-up in outpatient setting (7) Right upper lobe consolidation: Code(s): J18.1 - Lobar pneumonia, unspecified organism Status: Acute Assessment and Plan: Chronic and stable CT CHEST Large thick-walled cavitary lesion in the right lung apex/right upper lobe is essentially unchanged from prior exam. Interval improvement in centrilobular nodules at the left lower lobe. Moderate emphysema. Minimal right pleural effusion with minimal right basilar atelectasis. Stable small pericardial effusion. (8) Nicotine dependence: Qualifiers: Nicotine product type: cigarettes Substance use status: unspecified nicotine-induced disorder Qualified Code(s): F17.219 - Nicotine dependence, cigarettes, with unspecified nicotine-induced disorders Code(s): F17.200 - Nicotine dependence, unspecified, uncomplicated Status: Chronic Assessment and Plan: nicotine patch as needed Subjective Date/time seen: 09/18/23 11:15 Interval history: Still with cough. Nonproductive. No chest pain. No shortness of breath walking about her room. No edema. No GI or complaints. Does note intermittent pain anterior left hip radiating down the anteromedial thigh. Worse with weight-bearing. Worse with position changes. Some pain in the lower back more on the right than left not as severe as the hip pain. Points to the right SI region when asked where she hurts. Pain in hip is severe at times and inhibits ambulation. Pain is been there for several weeks. Review of Systems Review of Systems: All systems reviewed & are unremarkable except as noted in HPI and below Exam Narrative: HEENT: PERRL, sclerae nonicteric, pharyngeal mucosa pink and intact NECK: No JVD, adenopathy, or thyromegaly CHEST: Clear to auscultation with diminished breath so
[2023-09-18] MEDS: AZITHROMYCIN 500 MG/NS 250 ML 500 MG/250 ML BAG 250 MG IVPB (11:36)
[2023-09-18] MEDS: AZITHROMYCIN 250 MG TABLET 500 MG PO (12:52)
--- NOTE | 2023-09-18 15:45 | PM.PNPUL ---
Subjective Date/time seen: 09/18/23 16:57 Interval history: 09/16/2023: pulmonary consult for cavitary lesion right upper lobe; was seen by Dr Dickens. 73-year-old with a history of hypertension, COPD, tobacco use, fatty liver, Varicose veins bilaterally after she had kids at age 21, COPD and history of right upper lobe cavitary mass. regarding right upper lobe cavitary lesion: Low-dose CT scan on 05/20/2022 with moderate apical predominant centrilobular [place] emphysema. 08/12/2022 patient was admitted for right upper lobe pneumonia treated with azithromycin ceftriaxone Discharged on azithromycin and cefdinir. 11/29/2022 rib x-rays demonstrated right upper lobe scarring. Chest CT 02/11/23 - Right upper lobe airspace opacities, some demonstrating thick-walled cavitation, likely pneumonia. Recommend imaging follow-up to resolution after appropriate therapy with biopsy if findings do not resolve. Chest CT 03/10/23 - Irregular cavitary lesion in the right upper lobe demonstrates mild decrease in the extent and degree of wall thickening as compared to prior exam. CT scan 07/01/2023 with right upper lobe cavitary mass improved from 02/11/[address] scan in 6 months. * 09/18/2023: hospital visit; 09/16/23 CXR = Opacification in the right lung bases suggestive of atelectasis versus pneumonia. Patient is followed in the Pulmonary Clinic in last seen on 04/11/2023: This is the HPI from that visit9 month f/u regarding COPD. 04/11/2023: Patient was hospitalized last August for pneumonia and COPD exacerbation; tx with abx, steroids, and nebs. She required 2L O2 but was weaned to RA. She was hospitalized in Feb for weakness and hypokalemia. She was set-up by PCP for pulmonary rehab last month. Completed 3 session; feels very weak after each session. She reports issues with nausea and low appetite; plans to see GI this week. KISER she feels has been stable but has a chronic productive cough, thick sputum white/pale yellow at times. Denies fever, night sweats, hemoptysis, or wheezing. She was on Trelegy but hasn't taken this in months due to cost. She has a nebulizer with albuterol and rescue inhaler. She is a current smoker of 1.5ppd for 50 years; was 1ppd. She has been off work for 1 month so has smoked more. She has not been very active. Reviewed her CTs with patient. CAT score 23/40. Plan: Trilogy is too expensive. She will hold trilogy in [place] p.r.n. q.i.d.. Encourage daily activity, smoking cessation. Right upper lobe consolidation likely from pneumonia. March CT showed improvement in right upper lobe consolidation will do repeat follow-up can in 4 months. 05/2023 through 06/2023: Patient tells me she was admitted to [facility] in [facility] for pneumonia and a fast heart rate. At that time she told the team she had a chronic cavity but there was concern and the she had a CT-guided biopsy with a pneumothorax. She had 1 chest tube placed that was not working and we removed and a 2nd chest tube was placed. She thinks she had the chest tube in about 5 days. The biopsy results per her were noncancerous and there was no evidence of tuberculosis. She had to stay in the hospital till she produces 3 sputums that were negative. She left the hospital with bedsore and a UTI. She was not on oxygen when she was discharged. 07/01/2023: Emergency room visit for shortness of breath. Chest x-ray and CT scan show chronic right upper lobe changes and likely not cancer but a left lower lobe pneumonia process. She was discharged on Levaquin and 3 days of prednisone and to continue her trelegy Ellipta 100, and rescue albuterol. 09/15/2023: Patient presented to the [facility] emergency room with weakness, cough, congestion and feverish. Blood pressure 141/84, heart rate 129, respiratory rate 18, room air saturations 98%. White blood cell count 19.4, eosinophils 0.1%, creatinine 0.83, serum bicarbonate 29, l
[2023-09-18] MEDS: HYDROcodone/acetaminophen (*CRX) 5-325 MG TABLET 1 TAB PO (18:29)
[2023-09-18] MEDS: MAGNESIUM HYDROXIDE SUSP 30 ML UDC PO (18:29)
[2023-09-18] MEDS: APIXABAN 5 MG TABLET 10 MG PO (20:06)
[2023-09-19] VITALS (10 sets, daily range): BP systolic 111–132; BP diastolic 57–78; PULSE 72–90; RESP 16–20; TEMP 36.4–36.7; O2SAT 92–100
[2023-09-19] MEDS: UMECLIDINIUM BROMIDE 62.5 MCG ELLIPTA 1 PUFF INHALATION (08:01)
--- NOTE | 2023-09-19 08:57 | PM.PNPUL ---
Progress Note: A&P Assessment and Plan (1) DVT (deep venous thrombosis): Code(s): I82.409 - Acute embolism and thrombosis of unspecified deep veins of unspecified lower extremity Status: Acute (2) COPD exacerbation: Code(s): J44.1 - Chronic obstructive pulmonary disease with (acute) exacerbation Status: Acute Assessment and Plan: This 73-year-old female has a history of moderately severe centrilobular emphysema and a chronic right upper lobe cavitary lesion since February 2023. She presented with upper abdominal discomfort and shortness of breath. She has been receiving treatment for a urinary tract infection, a newly detected deep vein thrombosis (DVT) for which she is on anticoagulants, and a COPD exacerbation .A chest CT, in addition to the chronic right upper lobe cavitary lesion and emphysema, showed some lower lobe infiltrates, most likely atelectasis. Pulmonary embolism, which could account for her shortness of breath and bilateral lower lobe atelectasis, is a possibility; however, the patient is hemodynamically stable and is receiving anticoagulant therapy, so there is no need for a CT pulmonary angiogram. This appears to be an unprovoked DVT. She has not received steroids for her COPD exacerbation. Her respiratory status has improved over the last 48 hours, and the patient feels she is back to baseline. Plan: Repeat chest X-ray and add incentive spirometry for bilateral atelectasis. Will continue to follow up with you. (3) Mildly underweight adult: Code(s): R63.6 - Underweight Status: Acute (4) COPD (chronic obstructive pulmonary disease): Qualifiers: COPD type: unspecified COPD Qualified Code(s): J44.9 - Chronic obstructive pulmonary disease, unspecified Code(s): J44.9 - Chronic obstructive pulmonary disease, unspecified Status: Acute Subjective Date/time seen: 09/19/23 08:57 Interval history: This 73-year-old female with history of COPD alcohol abuse chronic right upper lobe cavitary lesion presented with shortness of breath leukocytosis and some upper abdominal discomfort. She has been diagnosed with a urinary tract infection has been antibiotics also a DVT on anticoagulants. Patient stated that she feels better. She has no shortness of breath cough wheezing fever chills hemoptysis or any respiratory symptoms. She thinks she is at baseline as far as respiratory complaints. Exam Narrative: GENERAL APPEARANCE: Well developed, well nourished, alert and cooperative, and appears to be in no acute distress SKIN: Inspection of the skin reveals no rashes, ulcerations or petechiae. HEENT: Sclerae anicteric and conjunctivae pink and moist. Extraocular movements were intact and pupils were equal, round, and reactive to light. The oral mucosa, hard and soft palate, tongue and posterior pharynx were normal. NECK: Supple. There was no thyroid enlargement, and no tenderness, or masses were felt. CHEST: Normal AP diameter and normal contour without any kyphoscoliosis. LUNGS: Distant breath sounds bilaterally no wheezing CARDIAC: There was a regular rate and rhythm without any murmurs, gallops, rubs. ABDOMEN: Soft and nontender with normal bowel sounds. There was no organomegaly. LYMPH NODES: No lymphadenopathy was appreciated in the neck, axillae or groin. EXTREMITIES: No cyanosis, clubbing or edema. NEUROLOGIC: Alert and oriented x 3. Normal affect. Objective Data Vital Signs Vital Signs: Vital Signs - 24 hr 09/18/23 12:00 09/18/23 12:00 09/18/23 16:00 Temperature 36.5 C 36.4 C Pulse Rate 95 80 81 Respiratory Rate 17 17 Blood Pressure 123/67 126/71 Pulse Oximetry 96 97 Oxygen Delivery Fraction of Inspired Oxygen 09/18/23 19:39 09/18/23 20:00 09/19/23 00:00 Temperature 36.6 C 36.6 C Pulse Rate 81 79 72 Respiratory Rate 17 18 18 Blood Pressure 117/69 111/57 L Pulse Oximetry 97 96 94 Oxygen Delivery Room Air Fraction of Inspired Ox
[2023-09-19] MEDS: THIAMINE HCL 100 MG TABLET PO (09:16)
[2023-09-19] MEDS: APIXABAN 5 MG TABLET 10 MG PO ×2 (09:16→20:24)
[2023-09-19] MEDS: FOLIC ACID 1 MG TABLET PO (09:16)
[2023-09-19] MEDS: AZITHROMYCIN 250 MG TABLET 500 MG PO (09:16)
[2023-09-19] MEDS: LINEZOLID 600 MG TABLET PO ×2 (09:16→20:24)
[2023-09-19] MEDS: METOPROLOL TARTRATE 12.5 MG TABLET PO ×2 (09:17→20:24)
[2023-09-19] MEDS: NICOTINE (*PBKC) 21 MG PATCH 1 PATCH TRANSDERM (09:19)
--- NOTE | 2023-09-19 15:59 | PM.IMPN ---
Progress Note: A&P Assessment and Plan (1) Acute UTI: Code(s): N39.0 - Urinary tract infection, site not specified Status: Acute (2) Weakness: Code(s): R53.1 - Weakness Status: Acute (3) Nicotine dependence: Qualifiers: Nicotine product type: cigarettes Substance use status: unspecified nicotine-induced disorder Qualified Code(s): F17.219 - Nicotine dependence, cigarettes, with unspecified nicotine-induced disorders Code(s): F17.200 - Nicotine dependence, unspecified, uncomplicated Status: Chronic (4) Fatty liver: Code(s): K76.0 - Fatty (change of) liver, not elsewhere classified Status: Acute (5) D-dimer, elevated: Code(s): R79.89 - Other specified abnormal findings of blood chemistry Status: Inactive (6) CHF (congestive heart failure): Code(s): I50.9 - Heart failure, unspecified Status: Acute (7) COPD (chronic obstructive pulmonary disease): Qualifiers: COPD type: unspecified COPD Qualified Code(s): J44.9 - Chronic obstructive pulmonary disease, unspecified Code(s): J44.9 - Chronic obstructive pulmonary disease, unspecified Status: Acute (8) Mildly underweight adult: Code(s): R63.6 - Underweight Status: Acute Plan 73-year-old female with past medical history of COPD/emphysema hypertension tobacco dependence fatty liver disease presented from outside facility for altered mental status. Patient has been feeling weak over the past few days. No fever chills nausea vomiting diarrhea shortness of breath. Cough sputum production. In the ER she was found to be tachycardic and tachypneic adequate oxygen saturation on arrival to the ED but heart rate of 126 blood pressure 141/84.. Received a dose of IV Cardizem 5 mg in the ER. Laboratory workup revealed WBC count of 19,000 D-dimer is elevated at 4.4 BNP 4000. COVID flu and RSV swab was negative. Chest x-ray showed prominent markings in the right lower lobe pneumonia cannot be excluded. Clinical correlation advised. She was transferred here for further evaluation and management. Patient was started on Rocephin. Follow blood cultures. Urine culture grew VRE and antibiotic has been switched to linezolid.Nicotine patch for tobacco abuse. Venous duplex was done which showed extensive DVT throughout the left lower limb with additional small amount of DVT in 1 of the paired right popliteal veins. She has been placed on Lovenox therapeutic dose Which has been transition to apixaban. CT chest noncontrast low-dose chest CT recommended in 6 months. Echo with EF 65-70% grade 1 diastolic dysfunction small circumferential pericardial effusion. No significant valvular abnormality. CT chest without contrast revealed chronic right upper lobe cavitary lesion which was biopsied back in June showed complicated with pneumothorax needing chest tube placement in [facility]. With new DVT consulted Pulmonary. Appreciate Pulmonary recommendations DVT prophylaxis apixaban Subjective Date/time seen: 09/19/23 15:59 Interval history: no new complaints feeling well had a good bowel movement today. No shortness of breath or chest pain. Review of Systems Review of Systems: All systems reviewed & are unremarkable except as noted in HPI and below Exam Narrative: HEENT: PERRL, sclerae nonicteric, pharyngeal mucosa pink and intact NECK: No JVD, adenopathy, or thyromegaly CHEST: Clear to auscultation with diminished breath sounds throughout. No wheezes crackles or rhonchi. Normal effort. HEART: NL S1/S2, irregular, rate controlled ABDOMEN: BS+, soft, nontender, no mass, no bruits EXTREMITIES: No cyanosis, edema, or clubbing NEUROLOGIC: CN intact and symmetric to inspection. MUSCULOSKELETAL: Tone and strength symmetric. Pain on flexion and internal or external rotation of left hip with mild limitation of range of motion. Mild tenderness right SI joint. Much p
[2023-09-19] MEDS: oxyCODONE HCL (*CRX) 2.5 MG TAB IR PO (21:11)
[2023-09-20 04:00] VITALS: BP 118/67; PULSE 81; RESP 18; TEMP 36.4; O2SAT 91
[2023-09-20 05:58] LABS: Basophils Percent Auto 0.4 % (0.2-1.2); Eosinophils Absolute Auto 0.3 K/mm3 (0-0.3); Eosinophils Percent Auto 3.2 % (0-4.4); Hematocrit 38.3 % (37.0-47.0); Immature Granulocyte Absolute 0.06 K/mm3 (0.00-0.031); Immature Granulocyte Percent A 0.6 % (0-0.5); Lymphocytes Absolute Auto 2.56 K/mm3 (0.9-3.2); Lymphocytes Percent Auto 26.4 % (18.3-44.2); Mean Corpuscular HGB Conc 31.3 g/dl (32-36); Mean Corpuscular Hemoglobin 29.5 pg (26-34); Mean Corpuscular Volume 94.1 fl (80-100); Mean Platelet Volume 9.9 fl (7.4-10.4); Monocytes Absolute Auto 1.2 K/mm3 (0.1-0.6); Monocytes Percent Auto 12.2 % (2.6-8.5); Neutrophils Absolute Auto 5.6 K/mm3 (1.3-6.7); Neutrophils Percent Auto 57.2 % (45.5-73.1); Platelet Count Result 283 k/mm3 (150-375); Red Blood Count 4.07 M/mm3 (4.2-5.4); Red Cell Distribution Width 16.9 % (11.5-14.5); White Blood Count 9.7 K/mm3 (4.5-10.0)
[2023-09-20 06:13] LABS: Alanine Aminotransferase 8 U/L (6-35); Alkaline Phosphatase 91 U/L (38-126); Anion Gap 7 mmol/L (4-12); Aspartate Amino Transferase 17 U/L (14-36); Bilirubin,Total 0.6 mg/dL (0.2-1.3); Blood Urea Nitrogen 13 mg/dL (7-17); Calcium 9.2 mg/dL (8.4-10.2); Carbon Dioxide 26 mmol/L (22-30); Chloride 101 mmol/L (98-107); Estimated CRCL calculation 65 ml/min; Estimated Glomerular Filt Rate > 60; Glucose 93 mg/dL (65-110); Magnesium 1.8 mg/dL (1.6-2.3); Sodium 134 mmol/L (137-145)
[2023-09-20 08:08] VITALS: O2SAT 94
[2023-09-20] MEDS: UMECLIDINIUM BROMIDE 62.5 MCG ELLIPTA 1 PUFF INHALATION (08:08)
--- NOTE | 2023-09-20 08:38 | PM.PNPUL ---
Progress Note: A&P Assessment and Plan (1) DVT (deep venous thrombosis): Code(s): I82.409 - Acute embolism and thrombosis of unspecified deep veins of unspecified lower extremity Status: Acute (2) Right upper lobe consolidation: Code(s): J18.1 - Lobar pneumonia, unspecified organism Status: Acute (3) COPD exacerbation: Code(s): J44.1 - Chronic obstructive pulmonary disease with (acute) exacerbation Status: Acute Assessment and Plan: TThis 73-year-old female presented with bilateral upper quadrant abdominal pain and lower chest discomfort. She has a history of COPD and a right upper lobe cavitary lesion that has decreased in size over the past 8 months. The patient was diagnosed with a UTI and lower extremity DVT and has been on a direct anticoagulant. Her respiratory status has improved. A chest X-ray showed lower lobe atelectasis, which could be due to a pulmonary embolism or related to upper abdominal pain. On physical examination, she has distant breath sounds but no wheezing. Plan: From a respiratory standpoint, the patient can be discharged home. She will continue with her maintenance bronchodilator and will also use incentive spirometry at home to address the lower lobe atelectasis bilaterally. The patient will continue with Eliquis for the DVT, which appears to be unprovoked; hence, she will remain on a direct anticoagulant for an extended period. 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 I will sign off; please call with any questions. Subjective Date/time seen: 09/20/23 08:38 Interval history: Patient has no new respiratory symptoms. Willing to go home today. No shortness of breath no cough or wheezing. Review of Systems Review of Systems: All systems reviewed & are unremarkable except as noted in HPI and below Exam Narrative: GENERAL APPEARANCE: Well developed, well nourished, alert and cooperative, and appears to be in no acute distress SKIN: Inspection of the skin reveals no rashes, ulcerations or petechiae. HEENT: Sclerae anicteric and conjunctivae pink and moist. Extraocular movements were intact and pupils were equal, round, and reactive to light. The oral mucosa, hard and soft palate, tongue and posterior pharynx were normal. NECK: Supple. There was no thyroid enlargement, and no tenderness, or masses were felt. CHEST: Normal AP diameter and normal contour without any kyphoscoliosis. LUNGS: Distant breath sounds bilaterally no wheezing CARDIAC: There was a regular rate and rhythm without any murmurs, gallops, rubs. ABDOMEN: Soft and nontender with normal bowel sounds. There was no organomegaly. LYMPH NODES: No lymphadenopathy was appreciated in the neck, axillae or groin. EXTREMITIES: No cyanosis, clubbing or edema. NEUROLOGIC: Alert and oriented x 3. Normal affect. Objective Data Vital Signs Vital Signs: Vital Signs - 24 hr 09/19/23 09:17 09/19/23 09:17 09/19/23 12:00 Temperature 36.5 C Pulse Rate 90 75 Respiratory Rate 18 18 Blood Pressure 111/63 Pulse Oximetry 95 98 Oxygen Delivery Room Air Fraction of Inspired Oxygen 09/19/23 16:00 09/19/23 19:52 09/19/23 19:58 Temperature 36.7 C 36.5 C Pulse Rate 81 87 87 Respiratory Rate 16 18 18 Blood Pressure 125/64 117/64 Pulse Oximetry 100 93 93 Oxygen Delivery Room Air Fraction of Inspired Oxygen 21 09/19/23 23:54 09/20/23 04:00 09/20/23 08:08 Temperature 36.5 C 36.4 C Pulse Rate 82 81 Respiratory Rate 18 18 Blood Pressure 132/72 118/67 Pulse Oximetry 93 91 94 Oxygen Delivery Room Air Fraction of Inspired Oxygen Intake/Output Intake/Output: Intake & Output 09/17/23 09/18/23 09/19/23 09/20/23 23:59 23:59 23:59 23:59 Intake Total 1760 2048.0 1760 340 Output Total 1900 150 Balance -140 1898.0 1760 340 Meds/Results Medications: Active Medications Generic Name Dose Route Start Last Admin Trade Name Freq PRN
[2023-09-20 10:00] VITALS: BP 97/54; PULSE 72; RESP 16; TEMP 36.6; O2SAT 97
[2023-09-20] MEDS: NICOTINE (*PBKC) 21 MG PATCH 1 PATCH TRANSDERM (10:18)
[2023-09-20] MEDS: THIAMINE HCL 100 MG TABLET PO (10:19)
[2023-09-20] MEDS: LINEZOLID 600 MG TABLET PO (10:19)
[2023-09-20] MEDS: FOLIC ACID 1 MG TABLET PO (10:20)
[2023-09-20] MEDS: APIXABAN 5 MG TABLET 10 MG PO (10:20)
--- NOTE | 2023-09-20 13:28 | PM.DS ---
DS: Admitting Diagnosis Discharge Date 09/20/2023 Admitting Diagnosis weakness DS: Discharge Diagnosis Discharge Diagnosis (1) Acute UTI: Code(s): N39.0 - Urinary tract infection, site not specified Status: Acute (2) Weakness: Code(s): R53.1 - Weakness Status: Acute (3) Nicotine dependence: Qualifiers: Nicotine product type: cigarettes Substance use status: unspecified nicotine-induced disorder Qualified Code(s): F17.219 - Nicotine dependence, cigarettes, with unspecified nicotine-induced disorders Code(s): F17.200 - Nicotine dependence, unspecified, uncomplicated Status: Chronic (4) Fatty liver: Code(s): K76.0 - Fatty (change of) liver, not elsewhere classified Status: Acute (5) D-dimer, elevated: Code(s): R79.89 - Other specified abnormal findings of blood chemistry Status: Inactive (6) CHF (congestive heart failure): Code(s): I50.9 - Heart failure, unspecified Status: Acute (7) COPD (chronic obstructive pulmonary disease): Qualifiers: COPD type: unspecified COPD Qualified Code(s): J44.9 - Chronic obstructive pulmonary disease, unspecified Code(s): J44.9 - Chronic obstructive pulmonary disease, unspecified Status: Acute (8) Mildly underweight adult: Code(s): R63.6 - Underweight Status: Acute DS: Summary Hospital Course Hospital Course: 73-year-old female with past medical history of COPD/emphysema hypertension tobacco dependence fatty liver disease presented from outside facility for altered mental status. Patient has been feeling weak over the past few days. No fever chills nausea vomiting diarrhea shortness of breath. Cough sputum production. In the ER she was found to be tachycardic and tachypneic adequate oxygen saturation on arrival to the ED but heart rate of 126 blood pressure 141/84.. Received a dose of IV Cardizem 5 mg in the ER. Laboratory workup revealed WBC count of 19,000 D-dimer is elevated at 4.4 BNP 4000. COVID flu and RSV swab was negative. Chest x-ray showed prominent markings in the right lower lobe pneumonia cannot be excluded. Clinical correlation advised. She was transferred here for further evaluation and management. Patient was started on Rocephin. Follow blood cultures. Urine culture grew VRE and antibiotic has been switched to linezolid. Nicotine patch for tobacco abuse. Venous duplex was done which showed extensive DVT throughout the left lower limb with additional small amount of DVT in 1 of the paired right popliteal veins. She has been placed on Lovenox therapeutic dose Which has been transition to apixaban. CT chest noncontrast low-dose chest CT recommended in 6 months. Echo with EF 65-70% grade 1 diastolic dysfunction small circumferential pericardial effusion. No significant valvular abnormality. CT chest without contrast revealed chronic right upper lobe cavitary lesion which was biopsied back in June showed complicated with pneumothorax needing chest tube placement in [facility]. With new DVT consulted Pulmonary. Appreciate Pulmonary recommendations. DVT prophylaxis apixaban Time Spent with Patient Time attestation: Total time spent providing and/or coordinating discharge services: 35 minutes Exam Narrative: HEENT: PERRL, sclerae nonicteric, pharyngeal mucosa pink and intact NECK: No JVD, adenopathy, or thyromegaly CHEST: Clear to auscultation with diminished breath sounds throughout. No wheezes crackles or rhonchi. Normal effort. HEART: NL S1/S2, irregular, rate controlled ABDOMEN: BS+, soft, nontender, no mass, no bruits EXTREMITIES: No cyanosis, edema, or clubbing NEUROLOGIC: CN intact and symmetric to inspection. MUSCULOSKELETAL: Tone and strength symmetric. . PSYCH: Alert. Oriented to person, place, and time. DS: Data Data Completed and Pending Completed studies during hospitalization: Exam Type: CA echo dopple
== END 2023-09-20 14:50 | disposition home or self-care (01) | DRG 299 ==
LOC: ANHIMU 23:05 → ANH2MED 09-19 11:22 → ANHIMU 09-22 13:31
PROVIDERS: Internal Medicine; Admitting Provider Internal Medicine; PCP Family Medicine; Visit Provider Internal Medicine
DX: I82.431 Acute embolism and thrombosis of right popliteal vein (principal); J18.1 Lobar pneumonia, unspecified organism; N39.0 Urinary tract infection, site not specified; J44.1 Chronic obstructive pulmonary disease with (acute) exacerbation; J44.0 Chronic obstructive pulmonary disease with (acute) lower respiratory infection; Z16.21 Resistance to vancomycin; J98.11 Atelectasis; I50.30 Unspecified diastolic (congestive) heart failure; K76.0 Fatty (change of) liver, not elsewhere classified; I11.0 Hypertensive heart disease with heart failure; F17.210 Nicotine dependence, cigarettes, uncomplicated; R63.6 Underweight; Z68.21 Body mass index [BMI] 21.0-21.9, adult; Z90.49 Acquired absence of other specified parts of digestive tract
CPT/HCPCS: 36415; 71045; 71250; 72100; 73502; 80053; 82550; 82948; 83735; 84100; 85025; 93005; 93306; 93970; 94640; A9270; J0456; J0696; J1650; J1940; J2270

== ENCOUNTER 2023-11-15 14:59 | Outpatient (CLI) | payer OTHER, SELFPAY ==
[2023-11-15 15:17] LABS: Basophils Absolute Auto 0.1 K/mm3 (0.0-0.1); Basophils Percent Auto 0.9 % (0.2-1.2); Eosinophils Absolute Auto 0.3 K/mm3 (0-0.3); Eosinophils Percent Auto 3.4 % (0-4.4); Hematocrit 48.4 % (37.0-47.0); Hemoglobin 16.8 g/dL (12.0-15.0); Immature Granulocyte Absolute 0.02 K/mm3 (0.00-0.031); Immature Granulocyte Percent A 0.2 % (0-0.5); Lymphocytes Absolute Auto 3.54 K/mm3 (0.9-3.2); Lymphocytes Percent Auto 35.2 % (18.3-44.2); Mean Corpuscular HGB Conc 34.7 g/dl (32-36); Mean Corpuscular Hemoglobin 32.7 pg (26-34); Mean Corpuscular Volume 94.3 fl (80-100); Mean Platelet Volume 9.7 fl (7.4-10.4); Monocytes Absolute Auto 0.9 K/mm3 (0.1-0.6); Monocytes Percent Auto 8.9 % (2.6-8.5); Neutrophils Absolute Auto 5.2 K/mm3 (1.3-6.7); Neutrophils Percent Auto 51.4 % (45.5-73.1); Platelet Count Result 192 k/mm3 (150-375); Red Blood Count 5.13 M/mm3 (4.2-5.4); White Blood Count 10.1 K/mm3 (4.5-10.0)
[2023-11-15 16:39] LABS: Alanine Aminotransferase 17 U/L (6-35); Albumin Level 4.4 g/dL (3.5-5.1); Alkaline Phosphatase 138 U/L (38-126); Anion Gap 15 mmol/L (4-12); Aspartate Amino Transferase 49 U/L (14-36); Bilirubin,Total 1.9 mg/dL (0.2-1.3); Blood Urea Nitrogen 12 mg/dL (7-17); Calcium 9.6 mg/dL (8.4-10.2); Carbon Dioxide 26 mmol/L (22-30); Chloride 94 mmol/L (98-107); Estimated Glomerular Filt Rate > 60; Glucose 81 mg/dL (65-110); Iron 225 ug/dL (37-170); Potassium 3.4 mmol/L (3.4-5.0); Sodium 135 mmol/L (137-145)
[2023-11-15 16:44] LABS: D Dimer 0.39 ug/mL (<0.48)
[2023-11-15 16:50] LABS: Percent Iron Saturation 99 % (20-50); Transferrin 173 mg/dL (206-381)
== END 2023-11-15 15:00 | disposition home or self-care (01) ==
PROVIDERS: Nurse Practitioner Family; PCP Family Medicine; Visit Provider Internal Medicine Hematology & Oncology
DX: E83.110 Hereditary hemochromatosis (principal); I82.4Z2 Acute embolism and thrombosis of unspecified deep veins of left distal lower extremity
CPT/HCPCS: 36415; 80053; 82728; 83540; 83550; 84466; 85025; 85380

== ENCOUNTER 2023-12-07 12:17 | Outpatient (CLI) | payer OTHER, SELFPAY ==
--- NOTE | ~2023-12-07 | US_ITS ---
EXAMINATION:US venous doppler LE BI INDICATION:Follow-up DVT of the lower extremities. Patient on blood thinners. TECHNIQUE: Multiple grayscale, color flow and Doppler images of the right and left lower extremity de ep venous systems were obtained and reviewed. COMPARISON:09/16/2023 FINDINGS: There is persistent deep venous thrombosis of the left lower extremity in the superficial f emoral vein. The right lower extremity veins are patent without evidence for deep venous thrombosis. There is been resolution of DVT in the left common femoral, popliteal, posterior tibial and peroneal veins. IMPRESSION: 1: Persistent deep venous thrombosis of the left superficial femoral vein. 2: No evidence for DVT in the right lower extremity veins. Reviewed, dictated and finalized at location B.
[2023-12-07 14:40] LABS: Hematocrit 48.9 % (37.0-47.0); Hemoglobin 16.2 g/dL (12.0-15.0); Mean Corpuscular HGB Conc 33.1 g/dl (32-36); Mean Corpuscular Hemoglobin 33.2 pg (26-34); Mean Corpuscular Volume 100.2 fl (80-100); Mean Platelet Volume 9.1 fl (7.4-10.4); Platelet Count Result 262 k/mm3 (150-375); Red Blood Count 4.88 M/mm3 (4.2-5.4)
[2023-12-07 14:51] LABS: INR 1.3; Prothrombin Time 16.2 Seconds (11.1-14.7)
[2023-12-07 15:14] LABS: Alanine Aminotransferase 9 U/L (6-35); Alkaline Phosphatase 112 U/L (38-126); Anion Gap 9 mmol/L (4-12); Aspartate Amino Transferase 26 U/L (14-36); Bilirubin,Total 0.6 mg/dL (0.2-1.3); Blood Urea Nitrogen 8 mg/dL (7-17); Calcium 9.5 mg/dL (8.4-10.2); Carbon Dioxide 31 mmol/L (22-30); Chloride 96 mmol/L (98-107); Estimated Glomerular Filt Rate > 60; Glucose 84 mg/dL (65-110); Potassium 3.6 mmol/L (3.4-5.0); Sodium 136 mmol/L (137-145)
[2023-12-12 10:09] LABS: Alpha Fetoprotein Tumor Marker 1.1 ng/mL
== END 2023-12-07 12:18 | disposition home or self-care (01) ==
PROVIDERS: Nurse Practitioner Family; PCP Family Medicine; Referring Provider Nurse Practitioner Family; Visit Provider Internal Medicine Hematology & Oncology
DX: I82.4Z2 Acute embolism and thrombosis of unspecified deep veins of left distal lower extremity (principal); K76.0 Fatty (change of) liver, not elsewhere classified; R74.8 Abnormal levels of other serum enzymes; F10.90 Alcohol use, unspecified, uncomplicated; F17.200 Nicotine dependence, unspecified, uncomplicated; K29.90 Gastroduodenitis, unspecified, without bleeding; R79.89 Other specified abnormal findings of blood chemistry
CPT/HCPCS: 36415; 80053; 82105; 85027; 85610; 93970

== ENCOUNTER 2024-01-31 11:52 | Outpatient (CLI) | payer OTHER, SELFPAY ==
--- NOTE | ~2024-01-31 | XR_ITS ---
EXAMINATION: XR chest 2V DATE: 01/31/2024 12:07 INDICATION: Acute bronchitis. Cough. TECHNIQUE: Frontal and lateral views of the chest were obtained. COMPARISON: Chest single view 09/19/2023, Chest CT 09/16/2023, 02/11/23 FINDINGS: There are lucencies in the lungs, consistent with emphysema. There is a chronic cavitary ma ss in right upper lobe. No pleural effusion or pneumothorax. The heart size is normal. Calcified left hilar mediastinal lymph nodes are consistent with old granulomatous disease. IMPRESSION: 1. Worsened chronic cavitary mass in right upper lobe, likely chronic infection. 2. Emphysema. Reviewed, dictated and finalized at location B. IMPRESSION: 1. Worsened chronic cavitary mass in right upper lobe, likely chronic infection . 2. Emphysema.
== END 2024-01-31 11:53 | disposition home or self-care (01) ==
PROVIDERS: PCP Family Medicine; Visit Provider Family Medicine
DX: J20.8 Acute bronchitis due to other specified organisms (principal); R91.8 Other nonspecific abnormal finding of lung field; J43.9 Emphysema, unspecified
CPT/HCPCS: 71046

== ENCOUNTER 2024-02-03 09:55 | Outpatient (CLI) | payer OTHER, SELFPAY ==
[2024-02-03 10:29] LABS: Basophils Absolute Auto 0.1 K/mm3 (0.0-0.1); Basophils Percent Auto 0.3 % (0.2-1.2); Eosinophils Percent Auto 0.1 % (0-4.4); Hematocrit 47.7 % (37.0-47.0); Hemoglobin 15.5 g/dL (12.0-15.0); Immature Granulocyte Absolute 0.09 K/mm3 (0.00-0.031); Immature Granulocyte Percent A 0.6 % (0-0.5); Lymphocytes Absolute Auto 3.06 K/mm3 (0.9-3.2); Lymphocytes Percent Auto 20.1 % (18.3-44.2); Mean Corpuscular HGB Conc 32.5 g/dl (32-36); Mean Corpuscular Hemoglobin 32.6 pg (26-34); Mean Corpuscular Volume 100.2 fl (80-100); Mean Platelet Volume 9.3 fl (7.4-10.4); Monocytes Absolute Auto 1.5 K/mm3 (0.1-0.6); Monocytes Percent Auto 9.8 % (2.6-8.5); Neutrophils Absolute Auto 10.5 K/mm3 (1.3-6.7); Neutrophils Percent Auto 69.1 % (45.5-73.1); Platelet Count Result 277 k/mm3 (150-375); Red Blood Count 4.76 M/mm3 (4.2-5.4); Red Cell Distribution Width 13.8 % (11.5-14.5); White Blood Count 15.2 K/mm3 (4.5-10.0)
[2024-02-09 19:19] LABS: H Band Histoplasma NEGATIVE; M Band Histoplasma POSITIVE
== END 2024-02-03 09:56 | disposition home or self-care (01) ==
PROVIDERS: PCP Family Medicine; Visit Provider Nurse Practitioner Family
DX: J98.4 Other disorders of lung (principal)
CPT/HCPCS: 36415; 85025; 86606; 86698

== ENCOUNTER 2024-02-13 07:02 | Outpatient (CLI) | payer OTHER, SELFPAY | END 2024-02-13 07:03 | disposition home or self-care (01) | LOC: ANHLAB 07:03 | PROVIDERS: PCP Family Medicine; Visit Provider Nurse Practitioner Family | DX: R09.3 Abnormal sputum (principal); A31.0 Pulmonary mycobacterial infection | CPT/HCPCS: 87015; 87070; 87102; 87116; 87205; 87206 ==

== ENCOUNTER 2024-02-22 07:58 | Outpatient (CLI) | payer OTHER, SELFPAY ==
--- NOTE | ~2024-02-22 | CT_ITS ---
CT Scan of the Chest without Contrast: Clinical Indication: Other disorder of lung Technique: Contiguous sections were acquired throughout the chest without intravenous contrast. Dose reduction technique was used on this scan by utilizing automated exposure control and iterative recon struction technique. The dose-length product (DLP) was 53.71 mGy-cm. COMPARISON: 09/16/2023 Findings: There is no evidence of any significant mediastinal, hilar or axillary lymphadenopathy. Stable calcif ied mediastinal lymph nodes are present. Coronary artery calcifications are present. There is no evidence of pleural or pericardial effusion. Irregular, somewhat thick-walled cavitating mass in the right upper lobe/right lung apex is similar t o prior exam, measuring approximately 4.6 x 2.5 cm in maximal extent (axial image 31 for example). Th ere is spiculation/distortion about the lesion, unchanged. There is right apical scarring. Moderate u pper lobe emphysema present. Images through the upper abdomen reveal no abnormalities. Impression: Stable 4.6 x 2.5 cm thick-walled, irregular cavitating mass in the right upper lobe with surrounding spiculation/distortion. Moderate emphysema. Reviewed, dictated and finalized at location M. [employer] Impression: Stable 4.6 x 2.5 cm thick-walled, irregular cavitating mass in the right upper lobe with surrounding spiculation/distortion. Moderate emphysema.
== END 2024-02-22 07:59 | disposition home or self-care (01) ==
LOC: MICIMG 08:00
PROVIDERS: PCP Family Medicine; Visit Provider Nurse Practitioner Family
DX: J98.4 Other disorders of lung (principal); J43.9 Emphysema, unspecified
CPT/HCPCS: 71250

== ENCOUNTER 2024-03-19 11:50 | Outpatient (CLI) | payer OTHER, SELFPAY ==
[2024-03-19 12:04] LABS: Hemoglobin 17.3 g/dL (12.0-15.0); Mean Corpuscular HGB Conc 33.3 g/dl (32-36); Mean Corpuscular Hemoglobin 32.8 pg (26-34); Mean Corpuscular Volume 98.7 fl (80-100); Mean Platelet Volume 9.1 fl (7.4-10.4); Platelet Count Result 207 k/mm3 (150-375); Red Blood Count 5.27 M/mm3 (4.2-5.4); Red Cell Distribution Width 14.4 % (11.5-14.5); White Blood Count 7.2 K/mm3 (4.5-10.0)
[2024-03-19 12:13] LABS: Band Neutrophils Percent 1 % (0-6); Eosinophils Absolute Manual 0.14 K/mm3 (0.02-0.50); Eosinophils Percent Manual 2 % (0-4); Lymphocytes Absolute Manual 3.96 K/mm3 (1.1-4.5); Monocytes Absolute Manual 0.21 K/mm3 (0.1-0.90); Monocytes Percent Manual 3 % (3-9); Neutrophils Absolute Manual 2.88 K/mm3 (1.7-7.2); Neutrophils Percent Manual 39 % (46-73); Platelet Estimate Adequate (Adequate); Schistocytes None Seen; Total Cells Counted 100
[2024-03-19 13:57] LABS: Alanine Aminotransferase 15 U/L (6-35); Albumin Level 3.7 g/dL (3.5-5.1); Alkaline Phosphatase 131 U/L (38-126); Anion Gap 3 mmol/L (4-12); Aspartate Amino Transferase 48 U/L (14-36); Bilirubin,Total 0.6 mg/dL (0.2-1.3); Blood Urea Nitrogen 16 mg/dL (7-17); Calcium 8.7 mg/dL (8.4-10.2); Carbon Dioxide 34 mmol/L (22-30); Chloride 104 mmol/L (98-107); Estimated Glomerular Filt Rate > 60; Glucose 85 mg/dL (65-110); Potassium 4.1 mmol/L (3.4-5.0); Sodium 141 mmol/L (137-145)
[2024-03-19 14:08] LABS: Iron 227 ug/dL (37-170)
[2024-03-19 14:19] LABS: Percent Iron Saturation 63 % (20-50)
== END 2024-03-19 11:51 | disposition home or self-care (01) ==
LOC: ANHLAB 11:51
PROVIDERS: PCP Family Medicine; Visit Provider Internal Medicine Hematology & Oncology
DX: E83.110 Hereditary hemochromatosis (principal)
CPT/HCPCS: 36415; 80053; 82728; 83540; 83550; 85025

== ENCOUNTER 2024-03-19 12:32 | Outpatient (CLI) | payer OTHER, SELFPAY ==
--- NOTE | ~2024-03-19 | US_ITS ---
EXAMINATION:US venous doppler LE LT INDICATION:Acute DVT TECHNIQUE: Multiple grayscale, color flow and Doppler images of the left lower extremity deep venous systems were obtained and reviewed. COMPARISON:12/07/2023 FINDINGS: The common femoral, superficial femoral and popliteal veins demonstrate normal respiratory variation, augmentation and compressibility. Color flow is also seen within the posterior tibial, pe roneal, greater saphenous and profunda veins. IMPRESSION: 1: No lower extremity deep venous thrombosis. Reviewed, dictated and finalized at location B. 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
== END 2024-03-19 12:33 | disposition home or self-care (01) ==
LOC: ANHIMG 12:34
PROVIDERS: PCP Family Medicine; Visit Provider Internal Medicine Hematology & Oncology
DX: I82.4Z2 Acute embolism and thrombosis of unspecified deep veins of left distal lower extremity (principal)
CPT/HCPCS: 93971

== ENCOUNTER 2024-03-23 14:58 | Emergency (ER) | payer OTHER, SELFPAY ==
[2024-03-23 15:01] VITALS: BP 148/105; PULSE 114; RESP 20; TEMP 36.7; O2SAT 92
--- NOTE | 2024-03-23 15:29 | ED.GENADULT ---
HPI - General Adult General Chief complaint: Recheck/Abnormal Lab/Rx Stated complaint: unable to eat or drink X5days/high iron Time Seen by Provider: 03/23/24 15:13 History of Present Illness HPI narrative: 74-year-old female present to the emergency department for evaluation for 5 days of decreased p.o. intake with associated nausea and vomiting. Patient does have prior history of hemochromatosis. Patient typically follows up with Hematology/Oncology and is typically treated with phlebotomy. Patient states that she has not been able to follow-up with her oncologist. Patient did get a call today that told her her ferritin was 227. Patient denies any chest pain shortness of breath or abdominal pain. Related Data Home Medications ?Medication ?Instructions ?Recorded ?Confirmed ?Last Taken ?Type apixaban 5 mg tablet (Eliquis) 5 mg PO BID 12/20/23 03/07/24 Unknown History Allergies Allergy/AdvReac Type Severity Reaction Status Date / Time mercury (elemental) Allergy Unknown Verified 03/07/24 14:57 Iodine and Iodide Containing AdvReac Rash Verified 03/07/24 14:57 Produc Review of Systems Review of Systems: All systems reviewed & are unremarkable except as noted in HPI and below PMFSH Past Medical History Medical History Alcohol use Cirrhosis COPD (chronic obstructive pulmonary disease) Early satiety Elevated ferritin Elevated liver enzymes Family history of colon cancer in father Family hx of colon cancer Fatty liver Gastritis and duodenitis History of bruising easily Hypertension Surgical History Surgical History H/O colonoscopy with polypectomy H/O tubal ligation History of appendectomy History of colon surgery cecum History of tooth extraction S/P tonsillectomy Family History Family History Father Colon cancer Mother Heart failure Social History Social History Social History: She lives with a roommate. She is and has 4 children. 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 code status full code Smoking packs per day: 1.5 Smoking cigarettes per day: 30.0 Years smoked: 60 Smoking pack-years: 90.00 Smoking status: Current every day smoker Tobacco type: cigarettes Second hand tobacco smoke exposure: No Alcohol intake: former Drinks per week: 14 Alcohol use details: 5 shots per day Substance use: never Substance use type: does not use Do You Feel Safe in your Home?: Yes Lack of Transportation: YES Lack of Food: Never True Current Housing: I Have Housing Concerned About Future Housing: No Difficulty Paying Gas/Electric Bills: No Difficulty Paying for Meds: No Currently Unemployed: No Education: High School Diploma/GED Difficulty w/ Childcare or Family Care: No Living arrangements: alone Occupation/Education: occupation 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/education comments: [employer]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 HEAD: normocephalic, atraumatic. EYES: PERRLA/EOMI, conjunctivae clear. NOSE: Normal no drainage EARS:TMS clear with good light reflex. THROAT: Pharynx clear, no exudate. NECK: Supple. No adenopathy, no masses. RESPIRATORY: Airway patent, respirations nonlabored. Clear to auscultation bilaterally, no rales, rhonchi, wheezing. CARDIOVASCULAR: Regular rate and rhythm without murmurs rubs or gallops. ABDOMINAL: Soft, nontender, nondistended, normal bowel sounds MUSCULOSKELETAL: Moves all extremities. Strength/ROM intact, No edema, No calf tenderness. NEURO: Alert. Cranial nerves II through XII intact. grossly intact SKIN: Warm, dry. Normal Color Course Vital Signs Vital signs: Vital Signs Temperature 98.0 F 03/23/24 15:01 Pulse Rate 114 H 03/23/24 15:01 Respiratory Rate 20 03/23/24 15:01 Blood Pressure 148/105 H 03/23/24 15:01 Pulse Oximetry 92 03/23/24 15:01 Oxygen Delivery Room Air 03/23/24 15:01 Temperature 98.3 F 03/23/24 17:34 Pulse Rate 99 03/23/24 18:12 Respiratory Rate 17 03/23/24 18:12 Blood Pressure 178/99 H 03/23/24 18:12 Pulse Oximetry 95 03/23/24 18:12 Oxygen Delivery Room Air 03/23/24 15:01 Medical Decision Making MDM Narrative Medical decision making narrative: Oncology was consulted and they felt the patient could have outpatient follow-up with Hematology. Patient is afebrile with no leukocytosis and hemoglobin of 17. No significant abnormalities on the patient's CMP. Patient was treated with IV fluids. case discussed with hematology oncology and they confirmed that the patient does have a phlebotomy appointment scheduled. Hematology-Oncology but the patient could have outpatient phlebotomy and did not require admission or phlebotomy in the emergency department. Patient did feel improved after IV rehydration. Patient is afebrile with no leukocytosis and hemoglobin of 17, this is not far from her typical baseline. Patient's CMP had no acute abnormalities. patient's ferritin was still elevated on her labs. Patient was comfortable the plan for discharge and close follow-up Differential Diagnosis Differential Diagnosis: COVID, RSV, influenza, dehydration Vital Signs Vital Signs: Vital Signs Temperature 98.0 F 03/23/24 15:01 Pulse Rate 114 H 03/23/24 15:01 Respiratory Rate 20 03/23/24 15:01 Blood Pressure 148/105 H 03/23/24 15:01 Pulse Oximetry 92 03/23/24 15:01 Oxygen Delivery Room Air 03/23/24 15:01 Temperature 98.3 F 03/23/24 17:34 Pulse Rate 99 03/23/24 18:12 Respiratory Rate 17 03/23/24 18:12 Blood Pressure 178/99 H 03/23/24 18:12 Pulse Oximetry 95 03/23/24 18:12 Oxygen Delivery Room Air 03/23/24 15:01 Lab Data Lab results reviewed: Yes I reviewed the patient's lab results. 03/23/24 16:22 03/23/24 16:22 Labs: Lab Results 03/23/24 Range/Units 16:22 WBC 6.7 (4.5-10.0) K/mm3 RBC 5.20 (4.2-5.4) M/mm3 Hgb 17.0 H (12.0-15.0) g/dL Hct 49.6 H (37.0-47.0) % MCV 95.4 (80-100) fl MCH 32.7 (26-34) pg MCHC 34.3 (32-36) g/dl RDW 14.0 (11.5-14.5) % Plt Count 140 L (150-375) k/mm3 MPV 9.7 (7.4-10.4) fl Immature Gran % (Auto) 0.0 (0-0.5) % Neut % (Auto) 38.9 L (45.5-73.1) % Lymph % (Auto) 46.7 H (18.3-44.2) % [place] % (Auto) 10.1 H (2.6-8.5) % Eos % (Auto) 3.6 (0-4.4) % Baso % (Auto) 0.7 (0.2-1.2) % Lymph # (Auto) 3.14 (0.9-3.2) K/mm3 [place] # (Auto) 0.7 H (0.1-0.6) K/mm3 Eos # (Auto) 0.2 (0-0.3) K/mm3 Baso # (Auto) 0.1 (0.0-0.1) K/mm3 Abs Immat Gran (auto) 0.00 (0.00-0.031) K/mm3 Absolute Neuts (auto) 2.6 (1.3-6.7) K/mm3 Absolute Nucleated RBC 0.000 (0.0-0.012) K/mm3 Nucleated RBC % 0.0 (0.0-0.2) % % Immature Plt Fraction 6.1 (0.9-11.2) % Sodium 138 (137-145) mmol/L Potassium 3.7 (3.4-5.0) mmol/L Chloride 101 (98-107) mmol/L Carbon Dioxide 29 (22-30) mmol/L Anion Gap 8 (4-12) mmol/L BUN 15 (7-17) mg/dL Creatinine 0.60 L (0.7-1.0) mg/dL Estim Creat Clear Calc 64 ml/min Estimated GFR > 60 (59 - ) Glucose 78 (65-110) mg/dL Calcium 8.8 (8.4-10.2) mg/dL Magnesium 1.4 L (1.6-2.3) mg/dL Iron 259 H (37-170) ug/dL TIBC 287 (261-462) ug/dL % Saturation 90 H (20-50) % Total Bilirubin 1.5 H (0.2-1.3) mg/dL AST 90 H (14-36) U/L ALT 17 (6-35) U/L Alkaline Phosphatase 139 H (38-126) U/L Total Protein 7.0 (6.3-8.2) g/dL Albumin 3.6 (3.5-5.1) g/dL Discharge Plan Discharge Clinical Impression: Dehydration Patient Disposition: Home, Self-Care Condition: Stable Instructions: Antibiotic Form Additional Instructions: Drink plenty of fluids. Zofran as needed for nausea control. Have close follow-up with Oncology to schedule your for myotomy. There is a physician covering for your oncologist. If you have any worsening symptoms then please call or return to the emergency department. Patient Language: Maori Prescriptions: New ondansetron 4 mg tablet,disintegrating 4 mg PO Q8H PRN (Reason: nausea and vomiting) Qty: 14 0RF No Action Eliquis 5 mg Tablet 5 mg PO BID benzonatate 200 mg capsule 200 mg PO TID PRN (Reason: cough) Qty: 90 0RF albuterol sulfate 90 mcg/actuation HFA aerosol inhaler 1 - 2 inh inhalation Q4-6H PRN (Reason: shortness of breath or wheezing) Qty: 8.5 2RF Trelegy Ellipta 100-62.5-25 mcg blister with device 1 inh INHALATION DAILY Qty: 60 11RF Rx Instructions: rinse and spit Follow-up/Referrals: Jarod Hernandez MD [Primary Care Provider] -
[2024-03-23 16:14] VITALS: BP 160/95; PULSE 88; RESP 16; TEMP 36.9; O2SAT 96
[2024-03-23 16:35] LABS: Basophils Absolute Auto 0.1 K/mm3 (0.0-0.1); Basophils Percent Auto 0.7 % (0.2-1.2); Eosinophils Absolute Auto 0.2 K/mm3 (0-0.3); Eosinophils Percent Auto 3.6 % (0-4.4); Hematocrit 49.6 % (37.0-47.0); Immature Platelet Fraction Pct 6.1 % (0.9-11.2); Lymphocytes Absolute Auto 3.14 K/mm3 (0.9-3.2); Lymphocytes Percent Auto 46.7 % (18.3-44.2); Mean Corpuscular HGB Conc 34.3 g/dl (32-36); Mean Corpuscular Hemoglobin 32.7 pg (26-34); Mean Corpuscular Volume 95.4 fl (80-100); Mean Platelet Volume 9.7 fl (7.4-10.4); Monocytes Absolute Auto 0.7 K/mm3 (0.1-0.6); Monocytes Percent Auto 10.1 % (2.6-8.5); Neutrophils Absolute Auto 2.6 K/mm3 (1.3-6.7); Neutrophils Percent Auto 38.9 % (45.5-73.1); Platelet Count Result 140 k/mm3 (150-375); White Blood Count 6.7 K/mm3 (4.5-10.0)
[2024-03-23 16:45] LABS: Alanine Aminotransferase 17 U/L (6-35); Albumin Level 3.6 g/dL (3.5-5.1); Alkaline Phosphatase 139 U/L (38-126); Anion Gap 8 mmol/L (4-12); Aspartate Amino Transferase 90 U/L (14-36); Bilirubin,Total 1.5 mg/dL (0.2-1.3); Blood Urea Nitrogen 15 mg/dL (7-17); Calcium 8.8 mg/dL (8.4-10.2); Carbon Dioxide 29 mmol/L (22-30); Chloride 101 mmol/L (98-107); Estimated CRCL calculation 64 ml/min; Estimated Glomerular Filt Rate > 60; Glucose 78 mg/dL (65-110); Magnesium 1.4 mg/dL (1.6-2.3); Potassium 3.7 mmol/L (3.4-5.0); Sodium 138 mmol/L (137-145)
[2024-03-23] MEDS: SODIUM CHLORIDE 0.9% IV 1,000 ML 999 ML IV CONT (17:29)
[2024-03-23 17:32] LABS: Iron 259 ug/dL (37-170); Percent Iron Saturation 90 % (20-50)
[2024-03-23 17:34] VITALS: BP 171/97; PULSE 91; RESP 17; TEMP 36.8; O2SAT 100
[2024-03-23 18:12] VITALS: BP 178/99; PULSE 99; RESP 17; O2SAT 95
== END 2024-03-23 19:37 | disposition home or self-care (01) ==
PROVIDERS: Emergency Provider Emergency Medicine; PCP Family Medicine
DX: E86.0 Dehydration (principal); E83.119 Hemochromatosis, unspecified; I10 Essential (primary) hypertension; J44.9 Chronic obstructive pulmonary disease, unspecified; K74.60 Unspecified cirrhosis of liver; F17.210 Nicotine dependence, cigarettes, uncomplicated
CPT/HCPCS: 36415; 80053; 83540; 83550; 83735; 85025; 85055; 96360; 99283; J7030

== ENCOUNTER 2024-04-18 11:27 | Outpatient (CLI) | payer OTHER, SELFPAY ==
--- NOTE | ~2024-04-18 | US_ITS ---
US right upper quadrant INDICATION: Cirrhosis of the liver PROCEDURE: Realtime right upper abdominal ultrasound. COMPARISON: No prior studies for comparison. FINDINGS: The pancreas is normal without focal mass or pancreatic ductal dilation. Liver is diffusel y echogenic and heterogeneous, consistent with fatty infiltration. There is hepatomegaly. There is n ormal directional flow in the portal vein. There is a 6 mm echogenic focus in the gallbladder without shadowing, consistent with a polyp. No def initive gallstones or gallbladder wall thickening. Common bile duct measures 3.4 mm. No sonographic Leigh's sign. IMPRESSION: 1: Hepatomegaly with fatty infiltration of the liver. 2: Gallbladder polyp measuring 6 mm. Reviewed, dictated and finalized at location [facility]. [facility]
== END 2024-04-18 11:28 | disposition home or self-care (01) ==
LOC: ANHIMG 11:28
PROVIDERS: PCP Family Medicine; Visit Provider Internal Medicine Gastroenterology
DX: K74.60 Unspecified cirrhosis of liver (principal); K82.4 Cholesterolosis of gallbladder
CPT/HCPCS: 76705

== ENCOUNTER 2024-04-19 14:49 | Outpatient (CLI) | payer OTHER, SELFPAY ==
[2024-04-19 15:17] LABS: Hematocrit 44.4 % (35.0-42.0); Hemoglobin 14.7 g/dL (11.7-13.8); Mean Corpuscular HGB Conc 33.1 g/dL (32-36); Mean Corpuscular Hemoglobin 33.3 pg (27.0-31.0); Mean Corpuscular Volume 100.7 fL (78.0-102.0); Platelet Count Result 151 K/mm3 (150-420); Red Blood Count 4.41 M/mm3 (4.20-5.40); White Blood Count 8.3 K/mm3 (4.8-10.8)
[2024-04-19 15:50] LABS: Alanine Aminotransferase 61 U/L (14-59); Albumin Level 2.6 g/dL (3.4-5.0); Alkaline Phosphatase 261 U/L (46-116); Anion Gap 9 mmol/L (4-12); Aspartate Amino Transferase 179 U/L (15-37); Bilirubin,Total 0.9 mg/dL (0.00-1.00); Blood Urea Nitrogen 6 mg/dL (7-18); Carbon Dioxide 35 mmol/L (21-32); Chloride 98 mmol/L (98-108); Estimated Glomerular Filt Rate > 60; Ferritin 251 ng/mL (8-252); Glucose 91 mg/dL (70-99); Iron 144 ug/dL (50-170); Osmolality Calculated 291 mOsm/kg (285-295); Percent Iron Saturation 70 % (12-57); Sodium 142 mmol/L (136-145); Total Protein 5.9 g/dL (6.4-8.2)
[2024-04-19 16:02] LABS: Calcium 8.8 mg/dL (8.5-10.1)
== END 2024-04-19 14:50 | disposition home or self-care (01) ==
PROVIDERS: PCP Family Medicine; Visit Provider Internal Medicine Gastroenterology
DX: K74.60 Unspecified cirrhosis of liver (principal); R74.8 Abnormal levels of other serum enzymes
CPT/HCPCS: 36415; 80053; 82728; 83540; 83550; 85027

== ENCOUNTER 2024-04-27 15:43 | Outpatient (CLI) | payer OTHER, SELFPAY ==
--- NOTE | ~2024-04-27 | XR_ITS ---
CHEST RADIOGRAPH, PA AND LATERAL CLINICAL HISTORY: Acute Cough,SOB,SMOKER,WEAKNESS,FATIGUE . COMPARISON: 01/31/2024 TECHNIQUE: PA and lateral views of the chest. FINDINGS Multiple calcified lymph nodes within the mediastinum suggesting prior granulomatous disease. The remainder of the cardiomediastinal silhouette is otherwise unremarkable. The lungs are clear. Visualized osseous structures and soft tissues are unremarkable. IMPRESSION: No focal infiltrate or effusion. Reviewed, dictated and finalized at location A. ATING MACHINE OPERATOR
--- OUTSIDE RECORDS SUMMARY | 2024-04-27 15:47 | XMS_ITS | Encounter Summary ---
Author Organization [facility] Address [address] [place] [address] Care Team Providers Care Hand Crocheter Name Role Phone Jarod Hernandez MD Primary Care Provider [phone] Reason for Referral * Laboratory Services (Routine) - Open Specialty Diagnoses / Procedures Referred By Contac t Referred To Contact Diagnoses Acute deep vein thrombosis (DVT) of distal vein of left lower extremity (CMS/HCC) Procedures PROTHROMBIN FACTOR II MUTATION ANALYSIS Zaki Leon MD [address] [facility] [address] [place] [phone] Phone: tel: fax: Referral ID Status Reason Start Date Expiration Date Visits Re quested Visits Authorized [id number] Open 04/26/2024 05/27/2025 1 1 COOKING OPERATOR * Laboratory Services (Routine) - Open Specialty Diagnoses / Procedures Referred By Contac t Referred To Contact Diagnoses Acute deep vein thrombosis (DVT) of distal vein of left lower extremity (CMS/HCC) Procedures FACTOR V LEIDEN MUTATION Zaki Leon MD [address] [place] [phone] Phone: tel: fax: Referral ID Status Reason Start Date Expiration Date Visits Re quested Visits Authorized [id number] Open 04/26/2024 05/27/2025 1 1 COOKING OPERATOR * Laboratory Services (Routine) - Open Specialty Diagnoses / Procedures Referred By Contac t Referred To Contact Diagnoses Acute deep vein thrombosis (DVT) of distal vein of left lower extremity (CMS/HCC) Procedures PROTHROMBIN FACTOR II MUTATION ANALYSIS Zaki Leon MD [address] [place] [address] Phone: tel: fax: Referral ID Status Reason Start Date Expiration Date Visits Re quested Visits Authorized [id number] Open 04/26/2024 05/27/2025 1 1 COOKING OPERATOR * Laboratory Services (Routine) - Open Specialty Diagnoses / Procedures Referred By Duncan walton Referred To Contact Diagnoses Acute deep vein thrombosis (DVT) of distal vein of left lower extremity (CMS/HCC) Procedures FACTOR V LEIDEN MUTATION Zaki Leon MD [address] [place] [phone] Phone: tel: fax: Referral ID Status Reason Start Date Expiration Date Visits Re quested Visits Authorized [id number] Open 04/26/2024 05/27/2025 1 1 COOKING OPERATOR Reason for Visit * Reason Comments Follow Up Encounter Details Date Type Department Care Team (Late st Contact Info) Description 04/26/2024 9:45 AM WEED COOKING OPERATOR Office Visit [facility] Oncology and Hematology - Kin [address] [place] [id number] Zaki Leon MD [address] [place] [phone] Acute deep vein thrombosis (DVT) of distal vein of left lower extremity (CMS/HCC); Hereditary hemochromatosis; Erythrocytosis Social History Tobacco Use Types Packs/Day Years Used Date Smoking Tobacco: Every Day Cigarettes 1 40.4 Started: 11/15/1983 Smokeless Tobacco: Never Tobacco Cessation:Ready to Q uit: Not Asked; Counseling Given: Not Answered Alcohol Use Standard Drinks/Week Comments Yes 0 (1 standard drink = 0.6 oz pur e alcohol) Socially Comments Unknown Sex and Gender Information Value Date Recorded Sex Assigned at Not on file Legal Sex Female 3:40 PM CDT Gender Identity Not on file Sexual Orientation Not on file documented as of this encounter Last Filed Vital Signs Vital Sign Reading Time Taken Comments Blood Pressure 87/54 04/26/2024 9:57 AM WEED COOKING OPERATOR Pulse 55 04/26/2024 9:57 AM WEED COOKING OPERATOR Temperature 36.4 ??C (97.5 ??F) 04/26/2024 9:57 AM CS T Respiratory Rate 20 04/26/2024 9:57 AM WEED COOKING OPERATOR Oxygen Saturation 92% 04/26/2024 9:57 AM WEED COOKING OPERATOR Inhaled Oxygen Concentration - - Weight 57.2 kg (126 lb) 04/26/2024 9:57 AM WEED COOKING OPERATOR Height - - Body Mass Index 20.97 11/15/2023 2:07 PM CDT documented in this encounter Progress Notes * Zaki Leon MD - 04/26/2024 10:35 AM CST HEMATOLOGY / ONCOLOGY PROGRESS NOTE Patient Identification: Name: Stefanie Raymundo Age: 74 y.o. Sex: female : 1950 DIAGNOSIS Hereditary hemochromatosis with C80 2Y heterozygous state Second erythrocytosis with COPD and smoking Acute left lower extremity DVT. CURRENT TREATMENT Baby aspirin TREATMENT HISTORY Eliquis 5 mg twice daily. Eliquis discontinued on March 19, 2024. SUBJECTIVE Patient came to the office for follow-up visit. She denies any night sweats fevers and chills. Denies any chest pain and shortness of breath. Weight and appetite stable. No other new complaints. Review of system Constitutional: Patient did not mention fevers, sweats, denies any tiredness and fatigue, weight and appetite stable HEENT: Patient did not mention sinus congestion, hearing or vision problems Respiratory: Patient did not mention cough, dyspnea, wheeze Cardiovascular: Patient did not mention chest pain, exertional chest pressure/discomfort, nausea, syncope, shortness of breath GI: Patient did not mention constipation, diarrhea, dsyphagia, reflux symptoms, vomiting, melena : Patient did not mention dysuria, frequency, incontinence, urgency Integumentary system: no lymphadenopathy, sweats, flushing Musculoskeletal: Patient not mention: myalgia, arthralgia Neurological: Patient did not mention blurry or disturbed vision, numbness/weakness, dizziness Skin: No lumps, bumps or rashes. 12 point review of system was reviewed Objective: Vital signs in last 24 hours: As per nursing note Exam: General appearance: alert, cooperative, no distress, appears stated age Head: normocephalic, without obvious abnormality, atraumatic Eyes: conjunctivae/corneas clear, EOM's intact Ears: normal external ear canals AU Nose: Nares normal. Septum midline. Mucosa normal. No drainage or sinus tenderness Throat: Lips, mucosa, and tongue normal. Teeth and gums normal Neck: supple, symmetrical, trachea midline. Lungs: clear to auscultation bilaterally Heart: regular rate and rhythm, S1, S2 normal, no murmur, click, rub or gallop Abdomen: soft, non-tender. Bowel sounds normal. No masses, No organomegaly Extremities: extremities normal, atraumatic, no cyanosis or edema Skin: Skin color, texture, turgor normal. No rashes or lesions Lymph nodes: No lymphadenopathy Neuro: No obvious focal deficit Exam as above [facility] Labs from March 19 showed WBC 7.2 hemoglobin 17.3 hematocrit 52 platelet 207,000 creatinine 0.6 iron 227 iron saturation 63% ferritin 66 @IMAGEIMP@ Assessment: Plan: There are no active problems to display for this patient. Hereditary hemochromatosis with C80 2Y heterozygous state. Labs showed increased iron saturation and iron studies. Will perform phlebotomy now. 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 Will check CBC today. Patient will have phlebotomy now. Acute left lower extremity DVT. Doppler study done on March 19 showed no evidence of DVT. Eliquis has been discontinued on March 19. I will start baby aspirin. I will order hypercoagulable workup. Follow-up with me on phone visit in 1 week. Follow-up with me in 3 months as well. Patient will continue monthly phlebotomy. 04/26/2024 Zaki Leon MD COOKING OPERATOR documented in this encounter Plan of Treatment Upcoming Encounters Date Type Department Care Team (Late st Contact Info) Description 05/09/2024 4:30 PM WEED COOKING OPERATOR Telephone Check Up [facility] Oncology and Hematology - Kin [address] [facility] [address] [place] [address] Zaki Leon MD [address] [facility] [address] [place] [address] Scheduled Orders Name Type Priority Associated Diagnoses Orde r Schedule CBC WITH DIFFERENTIAL Lab Stat Acute deep vein thrombosis (DVT) of distal vein of left lower extremity (CMS/HCC) Hereditary hemochromatosis Erythrocytosis Expected: 04/24/2024, Expires: 04/24/2025 COMPREHENSIVE METABOLIC PANEL Lab Stat Acute deep vein thrombosis (DVT) of distal vein of left lower extremity (CMS/HCC) Hereditary hemochromatosis Erythrocytosis Expected: 04/24/2024, Expires: 04/24/2025 FERRITIN Lab Stat Acute deep vein thrombosis (DVT) of distal vein of left lower extremity (CMS/HCC) Hereditary hemochromatosis Erythrocytosis Expected: 04/24/2024, Expires: 04/24/2025 IRON, TIBC, AND PERCENT SATURATION Lab Stat Acute deep vein thrombosis (DVT) of distal vein of left lower extremity (CMS/HCC) Hereditary hemochromatosis Erythrocytosis Expected: 04/24/2024, Expires: 04/24/2025 ANTITHROMBIN III ACTIVITY Lab Routine Acute deep vein thrombosis (DVT) of distal vein of left lower extremity (CMS/HCC) Expected: 04/26/2024, Expires: 04/26/2025 BETA 2 GLYCOPROTEIN I ANTIBODIES Lab Routine Acute deep vein thrombosis (DVT) of distal vein of left lower extremity (CMS/HCC) Expected: 04/26/2024, Expires: 04/26/2025 FACTOR V LEIDEN MUTATION Lab Routine Acute deep vein thrombosis (DVT) of distal vein of left lower extremity (CMS/HCC) Expected: 04/26/2024, Expires: 04/26/2025 HOMOCYSTEINE Lab Routine Acute deep vein thrombosis (DVT) of distal vein of left lower extremity (CMS/HCC) Expected: 04/26/2024, Expires: 04/26/2025 PROTHROMBIN FACTOR II MUTATION ANALYSIS Lab Routine Acute deep vein thrombosis (DVT) of distal vein of left lower extremity (CMS/HCC) Expected: 04/26/2024, Expires: 04/26/2025 CBC WITHOUT DIFFERENTIAL Lab Stat Acute deep vein thrombosis (DVT) of distal vein of left lower extremity (CMS/HCC) Expected: 04/26/2024, Expires: 04/26/2025 LUPUS ANTICOAGULANT W/REFLEX CONFIRMATION Lab Routine Acute deep vein thrombosis (DVT) of distal vein of left lower extremity (CMS/HCC) Expected: 04/26/2024, Expires: 04/26/2025 HOMOCYSTEINE Lab Routine Acute deep vein thrombosis (DVT) of distal vein of left lower extremity (CMS/HCC) Expected: 04/26/2024, Expires: 04/26/2025 FACTOR V LEIDEN MUTATION Lab Routine Acute deep vein thrombosis (DVT) of distal vein of left lower extremity (CMS/HCC) Expected: 04/26/2024, Expires: 04/26/2025 BETA 2 GLYCOPROTEIN I ANTIBODIES Lab Routine Acute deep vein thrombosis (DVT) of distal vein of left lower extremity (CMS/HCC) Expected: 04/26/2024, Expires: 04/26/2025 ANTITHROMBIN III ACTIVITY Lab Routine Acute deep vein thrombosis (DVT) of distal vein of left lower extremity (CMS/HCC) Expected: 04/26/2024, Expires: 04/26/2025 PROTEIN C & S ACTIVITY Lab Routine Acute deep vein thrombosis (DVT) of distal vein of left lower extremity (CMS/HCC) Expected: 04/26/2024, Expires: 04/26/2025 PROTHROMBIN FACTOR II MUTATION ANALYSIS Lab Routine Acute deep vein thrombosis (DVT) of distal vein of left lower extremity ([facility]/HCC) Expected: 04/26/2024, Expires: 04/26/2025 CBC WITHOUT DIFFERENTIAL Lab Stat Acute deep vein thrombosis (DVT) of distal vein of left lower extremity (CMS/HCC) Expected: 04/26/2024, Expires: 04/26/2025 documented as of this encounter Visit Diagnoses Diagnosis Acute deep vein thrombosis (DVT) of distal vein of left lower extremity (CMS/HCC) Hereditary hemochromatosis Erythrocytosis Reserved for inherently not codable concepts WITHOUT codable children documented in this encounter Care Teams Hand Crocheter Relationship Specialty Start Date End Date Jarod Hernandez MD [address] [place] [address] PCP - General Family Practice 01/18/19 documented as of this encounter
--- OUTSIDE RECORDS SUMMARY | 2024-04-27 15:47 | XMS_ITS | Encounter Summary ---
Author Organization [facility] Address [address] [place] [address] Care Team Providers Care Life Advisor Name Role Phone Jarod Hernandez MD Primary Care Provider [phone] Encounter Details Date Type Department Care Team (Late st Contact Info) Description 04/26/2024 External Device Data STL ABSTRACTION Provider, Abstract NO ADDRESS ON FILE Social History Tobacco Use Types Packs/Day Years Used Date Smoking Tobacco: Every Day Cigarettes 1 40.4 Started: 11/15/1983 Smokeless Tobacco: Never Alcohol Use Standard Drinks/Week Comments Yes 0 (1 standard drink = 0.6 oz pur e alcohol) Socially Comments Unknown Sex and Gender Information Value Date Recorded Sex Assigned at Not on file Legal Sex Female 3:40 PM CDT Gender Identity Not on file Sexual Orientation Not on file documented as of this encounter Plan of Treatment Upcoming Encounters Date Type Department Care Team (Late st Contact Info) Description 05/09/2024 4:30 PM POOL FINISHER Telephone Check Up [facility] Oncology and Hematology - Kin [address] [facility] [address] [place] [address] Zaki Leon MD [address] [facility] [address] [place] [address] documented as of this encounter Visit Diagnoses Not on filedocumented in this encounter Care Teams Life Advisor Relationship Specialty Start Date End Date Jarod Hernandez MD [address] [place] [address] PCP - General Family Practice 01/18/19 documented as of this encounter
--- OUTSIDE RECORDS SUMMARY | 2024-04-27 15:47 | XMS_ITS | Encounter Summary ---
Author Organization [facility] Address [address] [place] [address] Care Team Providers Care Livestock Farmers Name Role Phone Jarod Hernandez MD Primary Care Provider [phone] Encounter Details Date Type Department Care Team (Late st Contact Info) Description 04/25/2024 External Device Data STL ABSTRACTION Provider, Abstract [...] st Contact Info) Description 05/09/2024 4:30 PM CELL TUBER HAND Telephone Check Up [facility] Oncology and Hematology - Kin [address] [facility] [address] [place] [address] Zaki Leon MD [address] [facility] [address] [place] [address] documented as of this encounter Visit Diagnoses Not on filedocumented in this encounter Care Teams Livestock Farmers Relationship Specialty Start Date End Date Jarod Hernandez MD [address] [place] [address] PCP - General Family Practice 01/18/19 documented as of this encounter
--- OUTSIDE RECORDS SUMMARY | 2024-04-27 15:47 | XMS_ITS | Clinical Summary ---
Author Organization [facility] Administrative Offices Address [address] [place] [address] Care Team Providers Care Life Care Planner Name Role Phone Jarod Hernandez MD Primary Care Provider [phone] Allergies Active Allergy Reactions Criticality Noted Date Comments Iodine Rash Low 06/02/2023 Medications folic acid (FOLVITE) 400 mcg Tablet Take 1 mg by mouth daily. Active metoprolol succinate (TOPROL XL) 12.5 mg Extended Release 24 hour tablet Take 12.5 mg by mouth every 12 hours. Active apixaban (Eliquis) 5 mg tablet Take 5 mg by mouth 2 times daily. Active fluticasone-ume clidinium-vilan terol (Trelegy Ellipta) 100-62.5-25 mcg Disk with Device Take 1 Puff by inhalation daily. Active thiamine (VITAMIN B-1) 100 mg tablet Take 1 Tablet by mouth daily. Active Active Problems No known active problems Encounters Date Type Department Care Team Description 04/26/2024 9:45 AM SOCIOLOGY RESEARCH ASSISTANT Office Visit [facility] [address] [place] [phone] Zaki Leon MD Acute deep vein thrombosis (DVT) of distal vein of left lower extremity (CMS/HCC); Hereditary hemochromatosis; Erythrocytosis 04/26/2024 External Device Data STL ABSTRACTION Provider, Abstract 04/25/2024 External Device Data STL ABSTRACTION Provider, Abstract 04/25/2024 Telephone [facility] [address] [place] [phone] Zaki Leon MD Diarrhea 04/24/2024 External Device Data STL ABSTRACTION Provider, Abstract 04/17/2024 External Device Data STL ABSTRACTION Provider, Abstract 03/21/2024 Telephone [facility] [address] [place] [address] Zaki Leon MD Lethargy 03/20/2024 Orders Only [facility] [address] [place] [address] Zaki Leon MD 02/13/2024 Orders Only [facility] [address] [place] [address] Zaki Leon MD 02/10/2024 Orders Only [facility] [address] [place] [address] Zaki Leon MD 2024 External Device Data STL ABSTRACTION Provider, Abstract from Last 3 Months Family History Medical History Relation Name Comments No Known Problems Brother Atrial fibrillation Child 1 No Known Problems Child 2 No Known Problems Child 3 No Known Problems Child 4 Colon Cancer Father Heart Disease Mother No Known Problems Sister Relation Name Status Comments Brother Alive Child 1 Alive Child 2 Alive Child 3 Alive Child 4 Alive Father Mother Sister Social History Tobacco Use Types Packs/Day Years [...] on file Sexual Orientation Not on file Last Filed Vital Signs Vital Sign Reading Time Taken Comments Blood Pressure 87/54 04/26/2024 9:57 AM SOCIOLOGY RESEARCH ASSISTANT Pulse 55 04/26/2024 9:57 AM SOCIOLOGY RESEARCH ASSISTANT Temperature 36.4 ??C (97.5 ??F) 04/26/2024 9:57 AM CS T Respiratory Rate 20 04/26/2024 9:57 AM SOCIOLOGY RESEARCH ASSISTANT Oxygen Saturation 92% 04/26/2024 9:57 AM SOCIOLOGY RESEARCH ASSISTANT Inhaled Oxygen Concentration - - Weight 57.2 kg (126 lb) 04/26/2024 9:57 AM SOCIOLOGY RESEARCH ASSISTANT Height 165.1 cm (5' 5 ) 11/15/2023 2:07 PM CDT Body Mass Index 20.97 11/15/2023 2:07 PM CDT Plan of Treatment Upcoming Encounters Date Type Department Care Team (Late st Contact Info) Description 05/09/2024 4:30 PM SOCIOLOGY RESEARCH ASSISTANT Telephone Check Up [facility] [address] [facility] [address] [place] [address] Zaki Leon MD [address] [facility] [facility] [address] [place] [address] Health Maintenance Due Date Last Done Comments DTAP/TDAP/TD VACCINES (1 - Tdap) 1970 PNEUMOCOCCAL VACCINE 65+ YEARS (1 of 2 - PCV) 02/01/19 70 BREAST CANCER SCREENING 1991 COLORECTAL SCREENING 02/02/1996 Colorectal Cancer Screening 02/02/1996 FIT-DNA Q 3 years 02/02/1996 FIT/FOBT Q 1 year 02/02/1996 Flex Sig/CT Colonography Q 5 years 02/02/1996 Lung Cancer Screening 2001 ZOSTER VACCINE (1 of 2) 2001 RSV VACCINE (60+ or ) (1 - Risk 60-74 years 1-dose series) 2011 OSTEOPOROSIS SCREENING 02/02/2016 INFLUENZA VACCINE (#1) 2023 Preventative Visit- Commercial 04/04/2024 Procedures Procedure Name Priority Date/Time Associated Diagnosis Comments IRON LEVEL Routine 03/19/2024 1:20 PM SOCIOLOGY RESEARCH ASSISTANT COMPREHENSIVE METABOLIC PANEL Routine 03/19/2024 1:19 PM SOCIOLOGY RESEARCH ASSISTANT US VENOUS DOPPLER LEG LEFT Routine 03/19/2024 11:21 AM SOCIOLOGY RESEARCH ASSISTANT CBC WITH DIFFERENTIAL Routine 02/10/2024 2:03 PM SOCIOLOGY RESEARCH ASSISTANT IRON LEVEL Routine 02/10/2024 12:38 PM SOCIOLOGY RESEARCH ASSISTANT IRON LEVEL Routine 02/10/2024 12:07 PM SOCIOLOGY RESEARCH ASSISTANT from Last 3 Months Results * IRON LEVEL (03/19/2024 1:20 PM SOCIOLOGY RESEARCH ASSISTANT) Only the most recent of3 resultswithin the time period is included. Blood us Zaki Leon MD CHEMISTRY ORDERABLES Final Resu lt * COMPREHENSIVE METABOLIC PANEL (03/19/2024 1:19 PM SOCIOLOGY RESEARCH ASSISTANT) Blood us Zaki Leon MD CHEMISTRY ORDERABLES Final Resu lt * US VENOUS DOPPLER LEG LEFT (03/19/2024 11:21 AM SOCIOLOGY RESEARCH ASSISTANT) Anatomical Region Laterality Modality Lower Extremity Other us Zaki Leon MD US ORDERABLES Final Result * CBC WITH DIFFERENTIAL (02/10/2024 2:03 PM SOCIOLOGY RESEARCH ASSISTANT) Blood us Zaki Leon MD HEMATOLOGY ORDERABLES Final Res ult from Last 3 Months Insurance Care Teams Life Care Planner Relationship Specialty Start Date End Date Jarod Hernandez MD [address] [place] [phone] PCP - General Family Practice 01/18/19
--- OUTSIDE RECORDS SUMMARY | 2024-04-27 15:47 | XMS_ITS | Encounter Summary ---
Author Organization [facility] Address [address] [place] [address]. [place] [address] [place] [address] Care Team Providers Care Skelp Processor Name Role Phone Jarod Hernandez MD Primary Care Provider [phone] Raymon Conway MD Unavailable [phone] Mari Guajardo PA-C Unavailable [phone] Encounter Details Date Type Department Care Team (Late st Contact Info) Description 06/27/2023 Hospital Follow-up Call [facility] [address] [place] [address] Cassandra Medina RN Social History Tobacco Use Types Packs/Day Years Used Date Smoking Tobacco: Every Day Cigarettes 1 50 Started: 06/01/1973; Last attempted to quit: 06/02/2023 Alcohol Use Standard Drinks/Week Comments Yes 0 (1 standard drink = 0.6 oz pur e alcohol) OASIS D0700: Social Isolation Answer Da te Recorded Frequency of experiencing loneliness or isolatio n Rarely 07/01/2023 OASIS A1250: Transportation Answer Date Recorded Lack of Transportation (Medical) No 07/01/2023 Lack of Transportation (Non-Medical) No 07/01/2023 Patient Unable or Declines to Respond No 07/01/2023 OASIS B1300: Health Literacy Answer Abram e Recorded Frequency of needing help to read materials from doctor or pharmacy Rarely 07/01/2023 [facility] Utilities Answer Date Recorded In the past 12 months has th e electric, gas, oil, or water company threatened to shut off services in your home? No 06/05/2023 Humiliation, Afraid, Rape, and Kick questionnair e Answer Date Recorded Within the last year, have y ou been afraid of your partner or ex-partner? No 06/05/2023 Within the last year, have y ou been humiliated or emotionally abused in other ways by your partner or ex-partner? No Within the last year, have y ou been kicked, hit, slapped, or otherwise physically hurt by your partner or ex-partner? No 06/05/2023 Within the last year, have y ou been raped or forced to have any kind of sexual activity by your partner or ex-partner? No 06/05/2023 Overall Financial Resource Strain (CARDIA) Answe r Date Recorded How hard is it for you to pa y for the very basics like food, housing, medical care, and heating? Not hard at all 06/05/2023 Hunger Vital Sign Answer Date Recorded Within the past 12 months, y ou worried that your food would run out before you got the money to buy more. Never true 06/05/19 24 Within the past 12 months, t he food you bought just didn't last and you didn't have money to get more. Never true 06/05/2023 PRAPARE - Transportation Answer Date Re corded In the past 12 months, has l ack of transportation kept you from medical appointments or from getting medications? No 06/2023 In the past 12 months, has l ack of transportation kept you from meetings, work, or from getting things needed for daily living? No 06/05/2023 Housing Stability Vital Sign Answer Abram e Recorded In the last 12 months, was t here a time when you were not able to pay the mortgage or rent on time? No 06/05/2023 In the last 12 months, how many places have you lived? 1 06/05/2023 In the last 12 months, was t here a time when you did not have a steady place to sleep or slept in a alf (including now)? No 06/05/2023 Comments Unknown Sex and Gender Information Value Date Recorded Sex Assigned at Not on file Legal Sex Female 1:23 AM CDT Gender Identity Not on file Sexual Orientation Not on file documented as of this encounter Functional Status * Are you deaf or do you have serious difficulty hearing Answer Date of Assessment Author Status No 06/02/2023 9:30 PM INCOME TAX MANAGER Anita Chang, R N Active * Are you blind or do you have serious difficulty seeing, even when wearing glasses? Answer Date of Assessment Author Status No 06/02/2023 9:30 PM INCOME TAX MANAGER Kb Changee, R N Active * Do you have serious difficulty walking or climbing stairs? Answer Date of Assessment Author Status Yes 06/02/2023 9:30 PM INCOME TAX MANAGER Kb Changee, R N Active * Do you have difficulty dressing or bathing? Answer Date of Assessment Author Status Yes 06/02/2023 9:30 PM INCOME TAX MANAGER Anita Chang, R N Active * Because of a physical, mental, or emotional condition, do you have difficulty doing errands alone such as visiting a doctor's office or shopping? Answer Date of Assessment Author Status Yes 06/02/2023 9:30 PM INCOME TAX MANAGER Kb Changee, R N Active documented as of this encounter Mental Status * Because of a physical, mental, or emotional condition, do you have serious difficulty concentrating, remembering, or making decisions? Answer Entry Date Author Status No 06/02/2023 9:30 PM INCOME TAX MANAGER Anita Chang, R N Active documented in this encounter Plan of Treatment Upcoming Encounters Date Type Department Care Team (Late st Contact Info) Description 08/15/2024 9:30 AM CDT Office Visit [facility] [place] [address] Mari Guajardo PA-C [address] [place], [place] [id number] documented as of this encounter Goals Goal Patient Goal Type Associated Problems Recent Progress Patient-Stated? Author Safety - demonstrates understanding of home safety measures Lifestyle Noemi Machado RN Safety ? Patient/family will have appropriate support at home upon discharge Lifestyle Noemi Machado RN documented as of this encounter Visit Diagnoses Not on filedocumented in this encounter Care Teams Skelp Processor Relationship Specialty Start Date End Date Jarod Hernandez MD [address] [place] [address] PCP - General FAMILY PRACTICE 06/03/23 Raymon Conway MD [address] [place] [address] Consulting Physician CLINICAL CARDIAC ELECTROPHYSIOLOGY 08/09/23 Mari Guajardo PA-C [address] [place] [id number] Referring Physician PHYSICIAN INTERACTIVE ACCOUNT MANAGER 02/13/24 documented as of this encounter
--- OUTSIDE RECORDS SUMMARY | 2024-04-27 15:47 | XMS_ITS | Referral Summary ---
Author Organization [email or web address] Address [address] [facility] [place] [address] Care Team Providers Care Press Technician Name Role Phone Jarod Hernandez MD Primary Care Provider [phone] Source Comments [email or web address],non-owned Affiliates and Associated Physician Practices is amultiple site organization consisting of ambulatory clinics and hospital sitesin [place], [place], [place] and [place]. This disclosure is being madepursuant to the Care Everywhere program and may not contain all information available regarding this patient. Last updated 17.[email or web address] Allergies Active Allergy Reactions Criticality Noted Date Comments Povidone Iodine Swelling Low 08/29/2015 Medications * Be aware that medications may not be up to date on this document. Alwaysverify current medications with the patient. Medication Sig Dispensed Refills Start Date End Date Status albuterol (PROVENTIL;VENTOLIN) (2.5 MG/3ML) 0.083% nebulizer solution Inhale 2.5 mg by mouth 3 times daily as needed 06/28/2017 Active hydroCHLOROthiazide (HYDRODIURIL) 12.5 MG Take 12.5 mg by mouth once daily 01/17/2019 Active ofloxacin (Floxin) 0.3 % otic solution INSTILL 5 DROPS INTO LEFT EAR 2 TIMES DAILY 10 mL 5 02/12/2022 Active Magnesium Oxide -Mg Supplement 400 (240 Mg) MG Take 1 (one) tablet by mouth 2 times daily 04/08/2023 Active pantoprazole EC (Protonix) 40 MG tablet Take 1 (one) tablet by mouth every 12 hours 05/23/2023 Active folic acid (Folvite) 1 MG tablet 05/28/2023 Active spironolactone (Aldactone) 25 MG tablet Take 1 (one) tablet by mouth once daily 05/13/2023 Active thiamine (Vitamin B-1) 100 MG tablet Take 1 (one) tablet by mouth once daily 03/04/2023 Active fluticasone-umeclidin- vilant (Trelegy Ellipta) 200-62.5-25 MCG/ACT inhaler Inhale 1 (one) puff by mouth once daily Active Active Problems Problem Noted Date Diagnosed Date Mucopurulent chronic bronchitis 05/31/2023 Alcohol use disorder 05/31/2023 Severe malnutrition 05/31/2023 Localized edema 05/31/2023 Alcoholic liver disease 05/31/2023 Alcoholic cirrhosis of liver 05/31/2023 Overview (05/31/2023): 05/31/23 Fibroscan CAP 332, LSM 21.5 kPa Mixed conductive and sensori neural hearing loss of left ear with restricted hearing of right ear 01/29/2018 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 with restricted hearing of left ear 01/29/2018 Tympanic membrane retraction, left 01/29/2018 Abnormal auditory perception 09/19/2017 Dysfunction of left eustachian tube 09/19/2017 Chronic rhinitis 08/12/2017 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 Chronic sialoadenitis 08/29/2015 Nasal congestion 08/29/2015 Hearing loss of left ear 08/29/2015 Resolved Problems Problem Noted Date Diagnosed Date Resolved Date Impacted cerumen of left ear 07/18/2017 07/18/2017 Immunizations Name Administration Dates Next Due INFLUENZA VACCINE 01/08/2019,01/04/2018 Social History Tobacco Use Types Packs/Day Years Used Date Smoking Tobacco: Every Day Cigarettes Smokeless Tobacco: Never Alcohol Use Standard Drinks/Week Comments Yes 11.7 (1 standard dri nk = 0.6 oz pure alcohol) whiskey shooters 3/day, previous 10-15 daily Sex and Gender Information Value Date Recorded Sex Assigned at Not on file Gender Identity Not on file Sexual Orientation Not on file Last Filed Vital Signs Vital Sign Reading Time Taken Comments Blood Pressure 103/76 05/31/2023 10:50 AM TRANSMISSION REPAIRER Pulse 109 05/31/2023 10:50 AM TRANSMISSION REPAIRER Temperature 36.7 ??C (98.1 ??F) 05/31/2023 10:[address] Respiratory Rate 14 11/18/2015 10:51 AM CDT Oxygen Saturation 89% 05/31/2023 10:50 AM TRANSMISSION REPAIRER Inhaled Oxygen Concentration - - Weight 58.1 kg (128 lb) 05/31/2023 10:50 AM TRANSMISSION REPAIRER Height 165.1 cm (5' 5 ) 05/31/2023 10:50 AM TRANSMISSION REPAIRER Body Mass Index 21.3 05/31/2023 10:50 AM TRANSMISSION REPAIRER Plan of Treatment Not on file Care Teams Press Technician Relationship Specialty Start Date End Date Jarod Hernandez MD [address] [place] [phone] PCP - General 07/25/15
--- OUTSIDE RECORDS SUMMARY | 2024-04-27 15:47 | XMS_ITS | Patient Health Summary ---
Author Organization [facility] [employer] [employer] Address [address] [place] [address] Care Team Providers Care Prototype Deicer Assembler Name Role Phone Jarod Hernandez MD Primary Care Provider [phone] Note from [facility],non-owned Affiliates and Associated Physician Practices is amultiple site organization consisting of ambulatory clinics and hospital sitesin [place], [place], [place] and [place]. This disclosure is being madepursuant to the Care Everywhere program and may not contain all information available regarding this patient. Last updated 17.[facility] [employer] Allergies * Povidone Iodine(Swelling) -Low Criticality Medications * Be aware that medications may not be up to date on this document. Alwaysverify current medications with the patient. * albuterol (PROVENTIL;VENTOLIN) (2.5 MG/3ML) 0.083% nebulizer solution(Started 06/28/2017) Inhale 2.5 mg by mouth 3 times daily as needed * hydroCHLOROthiazide (HYDRODIURIL) 12.5 MG(Started 01/17/2019) Take 12.5 mg by mouth once daily * ofloxacin (Floxin) 0.3 % otic solution(Started 02/12/2022) INSTILL 5 DROPS INTO LEFT EAR 2 TIMES DAILY 5 refills by 02/12/2023 * Magnesium Oxide -Mg Supplement 400 (240 Mg) MG(Started 04/08/2023) Take 1 (one) tablet by mouth 2 times daily * pantoprazole EC (Protonix) 40 MG tablet(Started 05/23/2023) Take 1 (one) tablet by mouth every 12 hours * folic acid (Folvite) 1 MG tablet(Started 05/28/2023) * spironolactone (Aldactone) 25 MG tablet(Started 05/13/2023) Take 1 (one) tablet by mouth once daily * thiamine (Vitamin B-1) 100 MG tablet(Started 03/04/2023) Take 1 (one) tablet by mouth once daily * mzcktsmslan-ghhpnsxtv-dkaoft (Trelegy Ellipta) 200-62.5-25 MCG/ACT inhaler Inhale 1 (one) puff by mouth once daily Active Problems Problem Noted Date Diagnosed Date Mucopurulent chronic bronchitis 05/31/2023 Alcohol use disorder 05/31/2023 Severe malnutrition 05/31/2023 Localized edema 05/31/2023 Alcoholic liver disease 05/31/2023 Alcoholic cirrhosis of liver 05/31/2023 Mixed conductive and sensori neural hearing loss [...] cerumen of left ear 07/18/2017 07/18/2017 Immunizations * INFLUENZA VACCINE(Given 01/08/2019, 01/04/2018) Social History Tobacco Use Types Packs/Day Years Used Date Smoking Tobacco: Every Day Cigarettes Smokeless Tobacco: Never Alcohol Use Standard Drinks/Week Comments Yes 11.7 (1 standard dri nk = 0.6 oz pure alcohol) [employer] 3/day, previous 10-15 daily Sex and Gender Information Value Date Recorded Sex Assigned at Not on file Gender Identity Not on file Sexual Orientation Not on file Last Filed Vital Signs Vital Sign Reading Time Taken Comments Blood Pressure 103/76 05/31/2023 10:50 AM WIRELESS NETWORK ENGINEER Pulse 109 05/31/2023 10:50 AM WIRELESS NETWORK ENGINEER Temperature 36.7 ??C (98.1 ??F) 05/31/2023 10:[address] Respiratory Rate 14 11/18/2015 10:51 AM CDT Oxygen Saturation 89% 05/31/2023 10:50 AM WIRELESS NETWORK ENGINEER Inhaled Oxygen Concentration - - Weight 58.1 kg (128 lb) 05/31/2023 10:50 AM WIRELESS NETWORK ENGINEER Height 165.1 cm (5' 5 ) 05/31/2023 10:50 AM WIRELESS NETWORK ENGINEER Body Mass Index 21.3 05/31/2023 10:50 AM WIRELESS NETWORK ENGINEER Procedures * VT LIVER ELASTOGRAPHY(Performed 05/31/2023) Performed for Fatty liver * IMAGING/RADIOLOGY/XRAY RESULTS ORDER(Performed 02/27/2019) * CT TEMPORAL BONES WO CONTRAST(Performed 01/27/2018) Performed for ETD (Eustachian tube dysfunction), left * VT REMOVE CERUMEN IMPACTED W INSTR LEFT EAR(Performed 08/12/2017) Performed for Hearing loss of left ear, unspecified hearing loss type, Impacted cerumen of left ear, Chronic rhinitis * PROC CERUMEN REMOVAL(Performed 07/18/2017) Performed for Sialolithiasis, Chronic sialoadenitis, Hearing loss of left ear, unspecified hearing loss type, Nasal congestion, Impacted cerumen of left ear * PATHOLOGY TISSUE(Performed 10/27/2015) Results * VT LIVER ELASTOGRAPHY (05/31/2023 10:38 AM WIRELESS NETWORK ENGINEER) Narrative Jered Chilel MD - 05/31/2023 10:38 AM WIRELESS NETWORK ENGINEER Jered Chilel MD ? 05/31/2023 ??5:38 PM Diagnosis: Fatty liver RN verified patient NPO for prior 3 hours. Procedure explained. Date of Exam: 05/31/2023 Liver Stiffness: (LSM, kPa) median: ??21.5 IQR/Median% (ideally < 30%): ??8% CAP (controlled attenuation parameter): ??332 Technical Difficulty: Difficulty positioning Ordering Provider: Dr. Duane Rogers MD Phone Fax Fibroscan interpretation: I have personally reviewed the Fibroscan report and associated tracings. The calculated Liver Stiffness Measurement (LSM, kPa) indicates that: The probability of advanced liver fibrosis is: very high and the probability of complications of portal hypertension is also high. The loss of ultrasound signal, (controlled attenuation parameter, CAP [dB/m]), indicates that the probability of hepatic steatosis is: high. Jered Gill MD The following criteria are used to indicate the probability of advanced (stage 3-4) fibrosis: < 7.0 kPa: low 7.0-8.9 kPa: low to moderate 9.0-14.9 kPa: moderate 15-20 kPa: high > 20 kPa: very high Liver stiffness > 20 kPa is also associated with a high probability of complications of portal hypertension including varices and ascites. Liver stiffness > 50 kPa is associated with a high risk of variceal bleeding. These interpretations are based on the following published data: Milton PJ, Beatrice M, Ana M, et al. Accuracy of FibroScan controlled attenuation parameter and liver stiffness measurement in assessing steatosis and fibrosis in patients with nonalcoholic fatty liver disease. Gastroenterology 2019;156:1442-3946. Gladys ABRAHAM, Rex R, Van Brett ML, et al. Vibration-controlled transient elastography to assess fibrosis and steatosis in patients with nonalcoholic fatty liver disease. Clin Gastroenterol Hepatol 2019;17:156-163. Note that scores have been developed that incorporate the Fibroscan liver stiffness measurement from large cohorts of patients with liver biopsies to further refine the ability of Fibroscan to identify patients ??with MASH and advanced fibrosis. These include the FAST (Fibroscan-AST) score (Tang, 202) and the Agile3+ and Agile4 scores (Walker, 202). Tang TA, Van Natta ML, Torsten M, Anthony A, et al. Validation of the accuracy of the FAST score for detecting patients with at-risk nonalcoholic steatohepatitis (DAVIS) in a [place] cohort and comparison to other non-invasive algorithms. PLoS ONE (2021) 17: [id number]. Walker ALVARADO, Tejal J, Chay ZM, et al. Enhanced diagnosis of advanced fibrosis and cirrhosis in individuals with NAFLD using FibroScan-based Agile scores. J Hepatol (2022) 78: 247-259. Fibroscan LSM can also be used with laboratory parameters without formulas to assess prognosis. According to the Baveno-VII criteria (Child, 202), Fibroscan LSM ?15 kPa plus a platelet count of ?[id number]/L rules out clinically significant portal hypertension (sensitivity and negative predictive value >90%) in patients with compensated advanced chronic liver disease. Sotomayor, Renan Whitley, Reji G, Josefina T, Kourtney Montano on behalf of the [facility] VII Faculty. [facility]--Renewing consensus in portal hypertension. J Hepatol (2021) 76: 959-974 Assessing the likelihood of advanced fibrosis in patients with intermediate liver stiffness measurement (LSM) by Fibroscan (e.g., 8-15 kPa) can be improved by also calculating the FIB-4 score (Todde et al. Hepatology Communications 2019;3:8892-9110) or NAFLD Fibrosis score (Harris et al. Clinical Gastroenterology and Hepatology 2019;17:9377-4619 using ??routine clinical data. Note: 1. Fibroscan cannot reliably identify earlier stages of fibrosis (ie distinguish F0 from F1 and F2) and thus a histologic stage cannot be predicted from the Fibroscan reading. 2. Liver stiffness can be increased by factors other than fibrosis including passive congestion, infiltrative processes, active alcoholism, recent moderate alcohol consumption in the 2 weeks before the exam, ??biliary obstruction and marked inflammation. The interpretation of the Fibroscan result provided above may not have taken such clinical factors into account. Disease etiology also influences Fibroscan cutoff values for fibrosis stages and the following cutoffs have been proposed (Kyrie et al, Clin Gastro Hepatol 2015; 13:27-36): Cutoffs for Stage 3 and Stage 4 fibrosis respectively: Hepatitis B: >9 and >11.7 kPa Hepatitis C: >9.5 and >12.5 kPa HCV-HIV: >11 and >14 kPa Cholestatic liver diseases: >10 and >17.9 kPa MASLD/MASH: >10 and >14 kPa CAP estimates of steatosis: normal <200 dB/m mild 200 to 250 dB/m moderate 250-290 dB/m substantial > 290 dB/m (Note that Fibroscan is not a quantitative measure of liver fat.) These criteria are estimates and may change as additional supporting data becomes available. (This additional interpretive data was last updated 08/07/22.) [email or web address] Duane Rogers MD PROCEDURE/MINOR SURG ICAL ORDERABLES * IMAGING RADIOLOGY XRAY RESULTS ORDER (02/27/2019 10:47 AM WIRELESS NETWORK ENGINEER) Anatomical Region Laterality Modality Other Narrative 02/27/2019 10:47 AM WIRELESS NETWORK ENGINEER Ordered by an unspecified provider. Scanned Document IMAGING * CT TEMPORAL BONES WO CONTRAST (01/27/2018 11:08 AM CDT) Anatomical Region Laterality Modality Head Computed Tomogra phy 01/27/2018 1:31 PM CDT Impressions 01/27/2018 4:26 PM CDT IMPRESSION: 1. 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 Most of left mastoid air cells are opacified and there is a defect in tegmen mastoideum. There is a soft tissue density in the left epitympanum. There is no resorption of scutum or the ossicular chain on the left side. 2. Normal examination of the right temporal bone. Dictated by Kai Lowery M.D. (engineering vice president) I, Dr. MARIVEL VENTURA have personally reviewed and interpreted this examination/study. This report was electronically signed by MARIVEL VENTURA ??on 01/27/2018 4:26 PM . Narrative 01/27/2018 4:26 PM CDT EXAMINATION: Computed tomography (CT) of the temporal bones without contrast HISTORY: ETD (Eustachian tube dysfunction), left TECHNIQUE: CT of the temporal bones was performed without contrast according to standard protocol. COMPARISON: Comparison made with the prior CT temporal bone without contrast dated 09/23/2017. FINDINGS: On the right side, the external auditory canal and auricle appear normal. The tympanic membrane is not thickened. The scutum is normal. The mastoid air cells and the middle ear cavity including the middle ear ossicles appear normal. The bony labyrinth, internal auditory canal, and petrous apex appear normal. The vestibular and cochlear aqueducts are not widened. The carotid canal, jugular foramen, and course of the facial nerve appear normal. On the left side, the external auditory canal and auricle appear normal. The tympanic membrane is not thickened. Small amount of cerumen is seen in the left external auditory canal. Most of the left mastoid air cells are fully opacified. There is a defect in tegmen mastoideum (series 605, image 48). There is a focal density overlying the head of malleus in epitympanum. No similar density in the Prussak space is identified. The left ossicular chain is maintained. The scutum is normal. The tegmen tympani is intact . The bony labyrinth, internal auditory canal, and petrous apex appear normal. The vestibular and cochlear aqueducts are not widened. The carotid canal, jugular foramen, and course of the facial nerve appear normal. The visualized portions of the skull base is unremarkable. Right maxillary, left the sphenoid and bilateral ethmoid sinuses mucosal thickening are noted. Procedure Note Marivel Ventura MD - 01/27/2018 EXAMINATION: Computed tomography (CT) of the temporal bones without contrast HISTORY: ETD (Eustachian tube dysfunction), left TECHNIQUE: CT of the temporal bones was performed without contrast according to standard protocol. COMPARISON: Comparison made with the prior CT temporal bone without contrast dated 09/23/2017. FINDINGS: On the right side, the external auditory canal and auricle appearnormal. The tympanic membrane is not thickened. The scutum is normal. Themastoid air cells and the middle ear cavity including the middle ear ossicles appear normal. The bony labyrinth, internal auditory canal, and petrous apex appear normal. The vestibular and cochlear aqueducts are notwidened. The carotid canal, jugular foramen, and course of the facial nerveappear normal. On the left side, the external auditory canal and auricle appear normal. The tympanic membrane is not thickened. Small amount of cerumen is seenin the left external auditory canal. Most of the left mastoid air cells are fully opacified. There is a defect in tegmen mastoideum (series 605,image 48). There is a focal density overlying the head of malleus in epitympanum. No similar density in the Prussak space is identified. The left ossicular chain is maintained. The scutum is normal. The tegmen tympani is intact . The bony labyrinth, internal auditory canal, and petrous apex appear normal. The vestibular and cochlear aqueducts arenot widened. The carotid canal, jugular foramen, and course of the facial nerve appear normal. The visualized portions of the skull base is unremarkable. Right maxillary, left the sphenoid and bilateral ethmoid sinuses mucosal thickening are noted. IMPRESSION: 1. 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 Most of left mastoid air cells are opacified and there is a defect in tegmen mastoideum. There is a soft tissue density in the left epitympanum.There is no resorption of scutum or the ossicular chain on the left side. 2. Normal examination of the right temporal bone. Dictated by Kai Lowery M.D. (engineering vice president) I, Dr. MARIVEL VENTURA have personally reviewed and interpreted this examination/study. This report was electronically signed by MARIVEL VENTURA on 01/27/20184:26 PM . Rocky Berumen MD CT ORDERABLES * VT REMOVE CERUMEN IMPACTED W INSTR LEFT EAR (08/12/2017 5:51 PM CDT) Narrative Rocky Radford MD - 08/12/2017 5:51 PM CDT Rocky Radford MD ? 08/12/2017 ??5:51 PM Procedure Note: ??Cerumen/Debris Removal Procedure Details: Informed consent was obtained. ??The patient was placed in the supine position. ??The operative microscope used to visualize both ear canals. ??Large amounts of debris were removed with currette and suction. ??A retracted tympanicmembrane was then appreciated. ?? The patient tolerated the procedure without complication. ??The following findings were noted: ??Improved but still significant debris. ??Severe retraction with large retraction pocket posteriorly. ??Boric acid powder placed. The patient tolerated procedure well. Complications: None Rocky Radford MD PROCEDURE/MINOR S URGICAL ORDERABLES * PROC CERUMEN REMOVAL (07/18/2017 11:20 AM CDT) Narrative Rocky Radford MD - 07/18/2017 11:20 AM CDT Rocky Radford MD ? 07/18/2017 11:20 AM Procedure Note: ??Cerumen Removal, left Procedure Details: Informed consent was obtained. ??The patient was placed in the supine position. ??The operative microscope used to visualize the left ear canal. ??Large amounts of cerumen/debris were removed with currette and suction to the level of patient tolerance. ??The patient tolerated the procedure without complication. ??The following findings were noted: ??Copious firm yellow/brown debris with associated inflammation. ??Against TM. The patient tolerated procedure well. Complications: None Rocky Radford MD PROCEDURE/MINOR S URGICAL ORDERABLES * PATHOLOGY TISSUE (10/27/2015 10:07 AM CDT) Pathologist [facility] Surgical Pathology Tissue ACCESSION No: [id number] CLINICAL HISTORY: There is no clinical history provided on the requisition. FINAL DIAGNOSIS: RIGHT PAROTID DUCT STONE: - ? STONE GROSS DESCRIPTION: The specimen is received fresh in one container for gross examination only, labeled with the patient's name, Stefanie Raymudno and right parotid duct stone for gross , and consists of one firm, pink-red stone measuring 0.6 cm in greatest dimension. ??No sections are taken. ??This is a gross only specimen. CM/edk MICROSCOPIC DESCRIPTION: None. ES/CM/edk The performance characteristics of all immunohistochemical and indirect immunofluorescence stains (if any) cited in this report were determined by the Histopathology Laboratory of [facility].?? Some of these tests were developed by our own laboratory and have not been cleared or approved by the US Food and Drug Administration.?The FDA does not require this test to go through premarket FDA review.?These tests are used for clinical purposes. They should not be regarded as investigational or for research.?? This laboratory is certified under the Clinical Laboratory Improvement Amendments (CLIA) as qualified to perform high complexity clinical laboratory testing. This case has been personally reviewed and interpreted by the attending (teaching) pathologist. Final Diagnosis performed by Carlo Rivas MD. Electronically signed 10/28/2015 [facility] Other (qualifier value) 10/27/2015 10:07 AM CDT 10/27/2015 12:02 PM CDT Narrative [facility] - 10/28/2015 4:32 PM CDT Collection Date->10/27/15 Collection Time->10:07 AM Specimen A->Other ? 1. Right parotid duct stone gross only Rocky Radford MD LAB - PATHOLOGY/C YTOLOGY ORDERABLES [facility] Care Teams Prototype Deicer Assembler Relationship Specialty Start Date End Date Jarod Hernandez MD [address] [place] [phone] PCP - General 07/25/15
--- OUTSIDE RECORDS SUMMARY | 2024-04-27 15:47 | XMS_ITS | Clinical Summary ---
Author Organization [facility] Address [address] [place] [address]. [place] [address] [place] [address] Care Team Providers Care Cobbler Sole Name Role Phone Jarod Hernandez MD Primary Care Provider [phone] Raymon Conway MD Unavailable [phone] Mari Guajardo PA-C Unavailable [phone] Allergies Active Allergy Reactions Criticality Noted Date Comments Iodine Rash Low 06/02/2023 Mercury Unknown 05/18/2023 Povidone Iodine Swelling Low 08/29/2015 Medications folic acid (FOLVITE) 400 MCG tabletIndicatio ns:supplement Take 1 tablet (400 mcg total) by mouth daily. Indications: supplement Active Magnesium Oxide 400 MG Cap Take 400 mg by mouth 2 (two) times daily. Active albuterol sulfate HFA 108 (90 Base) MCG/ACT inhalerIndicati ons:breathing Inhale 2 puffs into the lungs every 6 (six) hours as needed. Indications: breathing 3 Active dilTIAZem CD (CARDIZEM CD) 180 MG 24 hr capsuleIndicati ons:heart Take 1 capsule (180 mg total) by mouth daily for 60 days. 60 capsule 4 Active pantoprazole EC (PROTONIX) 40 MG tabletIndicatio ns:gerd Take 1 tablet (40 mg total) by mouth every 12 (twelve) hours for 60 days. 120 tablet 4 Active acetaminophen (TYLENOL) 500 MG tabletIndicatio ns:Pain Take 2 tablets (1,000 mg total) by mouth every 6 (six) hours as needed. Indications: Pain 4 Active vitamin B-1 100 MG tabletIndicatio ns:supplement Take 1 tablet (100 mg total) by mouth daily. Indications: supplement 4 Active albuterol (PROVENTIL) (2.5 MG/3ML) 0.083% nebulizer solutionIndicat ions:wheezing Take 3 mLs (2.5 mg total) by nebulization 2 (two) times a day. Indications: wheezing 4 Active Active Problems Problem Noted Date Diagnosed Date Atrial fibrillation with RVR ([facility]) 0 06/03/2023 Pneumonia 06/02/2023 Social History Tobacco Use Types Packs/Day Years Used Date Smoking Tobacco: Every Day Cigarettes 1 50 Started: 06/01/1973; Last attempted to quit: 06/02/2023 Tobacco Cessation:Ready to Q uit: Yes; Counseling Given: Not Answered Alcohol Use Standard Drinks/Week Comments Yes 0 (1 standard drink = 0.6 oz pur e alcohol) OASIS D0700: Social Isolation Answer Da te Recorded Frequency of experiencing loneliness or isolatio n Never 07/19/2023 OASIS A1250: Transportation Answer Date Recorded Lack of Transportation (Medical) No 07/19/2023 Lack of Transportation (Non-Medical) No 07/19/2023 Patient Unable or Declines to Respond No 07/19/2023 OASIS B1300: Health Literacy Answer Abram e Recorded Frequency of needing help to read materials from doctor or pharmacy Never 07/19/2023 [facility] Utilities Answer Date Recorded In the past 12 months has e [employer], gas, oil, or water [employer] threatened to shut off services in your [...] place to sleep or slept in a prison (including now)? No 06/05/2023 Comments Unknown Sex and Gender Information Value Date Recorded Sex Assigned at Not on file Legal Sex Female 1:23 AM CDT Gender Identity Not on file Sexual Orientation Not on file Last Filed Vital Signs Vital Sign Reading Time Taken Comments Blood Pressure 121/67 08/10/2023 10:01 AM CDT Pulse 80 08/10/2023 10:01 AM CDT Temperature 36.4 ??C (97.6 ??F) 07/19/2023 9:57 AM CD T Respiratory Rate 20 08/10/2023 10:01 AM CDT Oxygen Saturation 96% 08/10/2023 10:01 AM CDT Inhaled Oxygen Concentration - - Weight 54.4 kg (120 lb) 08/10/2023 10:01 AM CDT Height 165.1 cm (5' 5 ) 08/10/2023 10:01 AM CDT Body Mass Index 19.97 08/10/2023 10:01 AM CDT Plan of Treatment Upcoming Encounters Date Type Department Care Team (Late st Contact Info) Description 08/15/2024 9:30 AM CDT Office Visit [facility] [place] [phone] Mari Guajardo PA-C [address] [place] [address] Health Maintenance Due Date Last Done Comments Colorectal Cancer Screening Colonoscopy (10 Years) 1951 Hepatitis C 1969 Mammogram Screening 1991 Lung Cancer Screening 2001 Zoster Vaccines (1 of 2) 2001 RSV Immunization or 60+ Years (1 - Risk 60-74 years 1-dose series) 2011 Dexa Scan (General) 02/02/2016 DTaP, Tdap and Td Vaccines (2 - Td or Tdap) 03/02/2022 03/02/2012 COVID-19 Vaccine (3 - season) 2023 11/14/2020, 10/22/2020 Influenza Adult (#1) 2024 02/09/2022, 01/23/2021, 01/21/2020, Additional history exists Pneumococcal Vaccine: 65+ Years Completed 12/15/2022, 03/22/2016, 12/22/2010 Meningococcal B Vaccine Aged Out No l onger eligible based on patient's age to complete this topic Meningococcal Vaccine Aged Out No cheri edison eligible based on patient's age to complete this topic RSV Immunizations Under 20 Months Aged Out No longer eligible based on patient's age to complete this topic Goals Goal Patient Goal Type Associated Problems Recent Progress Patient-Stated? Author Safety - demonstrates understanding of home safety measures Lifestyle No Noemi Rosa RN Safety ? Patient/family will have appropriate support at home upon discharge Lifestyle Noemi Machado RN Insurance MEDICARE PART A [place] [facility] Advance Directives * Full Code (Latest Code Status on File) Date Activated Date Inactivated Comments 07/07/2023 7:48 AM * Full Code Date Activated Date Inactivated Comments 06/07/2023 7:45 AM 06/23/2023 7:20 PM Care Teams Cobbler Sole Relationship Specialty Start Date End Date Jarod Hernandez MD [address] [place] [phone] PCP - General FAMILY PRACTICE 06/03/23 Raymon Conway MD [address] [place] [phone] Consulting Physician CLINICAL CARDIAC ELECTROPHYSIOLOGY 08/09/23 Mari Guajardo PA-C [address] [place] [id number] Referring Physician PHYSICIAN CHAIR POST MACHINE OPERATOR 02/13/24
--- OUTSIDE RECORDS SUMMARY | 2024-04-27 15:47 | XMS_ITS | Clinical Summary ---
Author Organization [facility]ave Address [address] [facility] [place] [address] Care Team Providers Care Welding Supervisor Name Role Phone Jarod Hernandez MD Primary Care Provider [phone] Source Comments [facility],non-owned Affiliates and Associated Physician Practices is amultiple site organization consisting of ambulatory clinics and hospital sitesin [place], [place], [place] and [place]. This disclosure is being madepursuant to the Care Everywhere program and may not contain all information available regarding this patient. Last updated 17.[facility] Allergies Active Allergy Reactions Criticality Noted Date [...] Comments Blood Pressure 103/76 05/31/2023 10:50 AM BROKE MAN Pulse 109 05/31/2023 10:50 AM BROKE MAN Temperature 36.7 ??C (98.1 ??F) 05/31/2023 10:[address] Respiratory Rate 14 11/18/2015 10:51 AM CDT Oxygen Saturation 89% 05/31/2023 10:50 AM BROKE MAN Inhaled Oxygen Concentration - - Weight 58.1 kg (128 lb) 05/31/2023 10:50 AM BROKE MAN Height 165.1 cm (5' 5 ) 05/31/2023 10:50 AM BROKE MAN Body Mass Index 21.3 05/31/2023 10:50 AM BROKE MAN Plan of Treatment Health Maintenance Due Date Last Done Comments BONE DENSITY TESTING 1950 COLOGUARD (AGES 45-75) - COL ON CA SCREENING 1950 COLON MONITORING 1951 COLONOSCOPY - COLON CA SCREENING 1951 CT COLONOGRAPHY - COLON CA SCREENING 1950 Colorectal Cancer Screening 1950 FIT - COLON CA SCREENING 1950 FLEX SIG - COLON CA SCREENING 1950 LIPID TESTING 1950 MAMMOGRAM 1950 HEPATITIS C SCREENING 01/27/1969 DTAP/TDAP/TD VACCINES (1 - Tdap) 1970 PNEUMOCOCCAL VACCINE 50+ (1 of 2 - PCV) 1970 ZOSTER VACCINE (1 of 2) 2001 HEPATITIS B VACCINE (1 of 3 - Risk 3-dose series) 2011 Respiratory Syncytial Virus (RSV) Vaccine Pt: or over 60 yrs (1 - Risk 60-74 years 1-dose series) 2011 COVID-19 VACCINE (1 - 2023-2 5 season) 2023 INFLUENZA VACCINE (#1) 2023 9, 01/04/2018 DEPRESSION SCREENING 04/04/2024 HIB VACCINE Aged Out No longer eligi ble based on patient's age to complete this topic HPV VACCINE Aged Out No longer eligi ble based on patient's age to complete this topic MENINGOCOCCAL (Group B) VACCINE Aged Out No longer eligible b ased on patient's age to complete this topic MENINGOCOCCAL VACCINE Aged Out No cheri edison eligible based on patient's age to complete this topic Care Teams Welding Supervisor Relationship Specialty Start Date End Date Jarod Hernandez MD [address] [place] [address] PCP - General 07/25/15
--- NOTE | 2024-04-27 15:59 | ECG_ITS ---
Test Date: 2024-04-27 16:21:00 Measurements Intervals [place] Rate: 89 P: 0 [place]: 0 QRS: 75 QRSD: 75 T: 80 QT: 359 QTc: 439 Interpretive Statements sinus rhythm with pacs ABNORMAL RHYTHM ECG Compared to ECG 09/16/2023 16:45:50 Sinus tachycardia no longer present Electronically Signed On 04-30-2024 21:24:11 TEARER by Cadence Stinson M.D.
[2024-04-27 16:04] LABS: Hematocrit 48.4 % (35.0-42.0); Hemoglobin 15.8 g/dL (11.7-13.8); Mean Corpuscular HGB Conc 32.6 g/dL (32-36); Mean Corpuscular Hemoglobin 33.1 pg (27.0-31.0); Mean Corpuscular Volume 101.3 fL (78.0-102.0); Mean Platelet Volume 11.9 fl (9.2-11.8); Platelet Count Result 155 K/mm3 (150-420); Red Blood Count 4.78 M/mm3 (4.20-5.40); Red Cell Distribution Width 16.2 % (11.6-14.4)
[2024-04-27 16:17] LABS: Band Neutrophils Percent 0 % (0-6); Basophils Percent Manual 0 % (0-1); Eosinophils Absolute Manual 0.24 K/mm3 (0.02-0.50); Eosinophils Percent Manual 3 % (1-6); Lymphocytes Absolute Manual 1.92 K/mm3 (1.1-4.5); Lymphocytes Percent Manual 24 % (18-44); Monocytes Absolute Manual 0.48 K/mm3 (0.1-0.90); Monocytes Percent Manual 6 % (3-9); Neutrophils Absolute Manual 5.36 K/mm3 (1.7-7.2); Neutrophils Percent Manual 67 % (46-73); Platelet Estimate Adequate (Adequate); Total Cells Counted 100
[2024-04-27 16:36] LABS: Alanine Aminotransferase 147 U/L (14-59); Albumin Level 2.8 g/dL (3.4-5.0); Alkaline Phosphatase 187 U/L (46-116); Anion Gap 7 mmol/L (4-12); Aspartate Amino Transferase 524 U/L (15-37); Blood Urea Nitrogen 19 mg/dL (7-18); Calcium 9.3 mg/dL (8.5-10.1); Carbon Dioxide 34 mmol/L (21-32); Chloride 94 mmol/L (98-108); Estimated Glomerular Filt Rate > 60; Glucose 87 mg/dL (70-99); Magnesium 1.7 mg/dL (1.8-2.4); Osmolality Calculated 281 mOsm/kg (285-295); Potassium 3.7 mmol/L (3.5-5.1); Sodium 135 mmol/L (136-145); Thyroid Stimulating Hormone 1.23 uIU/mL (0.36-3.74); Total Protein 6.5 g/dL (6.4-8.2)
== END 2024-04-27 15:44 | disposition home or self-care (01) ==
LOC: CHSLAB 15:45
PROVIDERS: PCP Family Medicine; Visit Provider Family Medicine
DX: R05.1 Acute cough (principal); E87.6 Hypokalemia; E83.42 Hypomagnesemia; R00.2 Palpitations; R94.31 Abnormal electrocardiogram [ECG] [EKG]
CPT/HCPCS: 36415; 71046; 80053; 83735; 84443; 85025; 93005

== ENCOUNTER 2024-05-02 13:21 | Emergency (ER) | payer OTHER, SELFPAY ==
[2024-05-02] VITALS (13 sets, daily range): BP systolic 108–131; BP diastolic 69–86; PULSE 93–109; RESP 20–39; TEMP 37.5; O2SAT 92–100
--- NOTE | ~2024-05-02 | XR_ITS ---
XR chest 1V portable 05/02/2024 14:06 Indication: Shortness of breath Procedure: AP portable chest Comparison: Comparison to multiple prior studies sequentially, with oldest reviewed study dated 09/15. Findings: Stable right upper lobe scarring. Heart size normal. No focal air space disease, pulmonary edema, pleural effusion or suspected pneumothorax. The lungs are hyperinflated which is consistent wi th, but not diagnostic of chronic obstructive pulmonary disease. Impression: 1: No acute cardiopulmonary disease. Reviewed, dictated and finalized at location A. GER ENGLISH Impression: 1: No acute cardiopulmonary disease.
--- NOTE | 2024-05-02 13:43 | ED_ITS ---
HPI - SOB/Dyspnea General Chief Complaint: Shortness of Breath/Dyspnea Stated Complaint: SOB Time Seen by Provider: 05/02/24 13:43 Source: patient Mode of arrival: ambulatory Limitations: no limitations History of Present Illness HPI Narrative: 71-year-old female with history smoking, alcoholism, hypertension, left lower ext DVT, COPD/ severe obstructive disease, right upper lobe cavitary lesion secondary to NTM, questionable sleep apnea ( Advised nocturnal oxygen) , HFpEF, polycythemia presents to the ED with -- worsening shortness of breath -- cough with mucoid sputum. No mucopurulent sputum. No hemoptysis -- generalized weakness -- left groin pain no fever or chills no chest pain no leg swelling MD elicited complaint: shortness of breath and cough Pertinent past history: COPD and congestive heart failure Onset (ago): day(s) ( 1 week) Timing: constant Severity: severe Exacerbating factors: exertion Relieving factors: bronchodilators Known history of: COPD and congestive heart failure Associated symptoms: cough, wheezing, sputum production and chest congestion Treatment prior to arrival: none Related Data Home oxygen amount: other ( nocturnal oxygen) Home Medications ?Medication ?Instructions ?Recorded ?Confirmed ?Last Taken ?Type apixaban 5 mg tablet (Eliquis) 5 mg PO BID 12/20/23 03/07/24 Unknown History Allergies Allergy/AdvReac Type Severity Reaction Status Date / Time mercury (elemental) Allergy Unknown Verified 05/02/24 13:59 Iodine and Iodide Containing AdvReac Rash Verified 05/02/24 13:59 Produc Review of Systems 2 Review of Systems: All systems reviewed & are unremarkable except as noted in HPI and below Constitutional: Constitutional: Reports as per HPI, Reports no additional constitutional complaints and Reports weakness Eyes: Eyes: Reports as per HPI and Reports no additional eye complaints ENT: Reports system reviewed and no additional complaints, except as documented and Reports as per HPI Cardiovascular: Cardiovascular: Reports as per HPI and Reports no additional cardiovascular complaints Respiratory: Respiratory: Reports as per HPI, Reports no additional respiratory complaints, Reports chest congestion, Reports cough, Reports dyspnea and Reports wheezing Gastrointestinal: Gastrointestinal: Reports as per HPI and Reports no additional gastrointestinal complaints Genitourinary: Genitourinary: Reports no additional female genitourinary complaints and Reports as per HPI Musculoskeletal: Musculoskeletal: Reports no additional musculoskeletal complaints and Reports as per HPI Comments: pain left inguinal ligament. Integumentary/Breasts: Skin/Breast: Reports system reviewed and no additional complaints, except as docu and Reports as per HPI Neurologic: Reports system reviewed and no additional complaints, except as documented and Reports as per HPI Psychiatric: Psychiatric: Reports no additional psychiatric complaints and Reports as per HPI Endocrine: Endocrine: Reports no additional endocrine complaints and Reports as per HPI Hematologic/Lymphatic: Hematologic/Lymphatic: Reports no additional hematologic/lymphatic complaints and Reports as per HPI Allergic/Immunologic: Allergic/Immunologic: Reports no additional allergic/immunologic complaints and Reports as per HPI [facility] Past Medical History Medical History Alcohol use Cirrhosis Family history of colon cancer in father Gastritis and duodenitis Elevated ferritin Fatty liver Elevated liver enzymes Early satiety History of bruising easily Family hx of colon cancer Hypertension COPD (chronic obstructive pulmonary disease) Surgical History Surgical History History of tooth extraction H/O colonoscopy with polypectomy H/O tubal ligation S/P tonsillectomy History of colon surgery cecum History of appendectomy Family History Family History Father Colon cancer Mother Heart failure Social History Social History Social History: She lives with a roommate. She is and has 4 children. 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 code status full code Smoking packs per day: 1.5 Smoking cigarettes per day: 30.0 Years smoked: 60 Smoking pack-years: 90.00 Smoking status: Current every day smoker Tobacco type: cigarettes Second hand tobacco smoke exposure: No Alcohol intake: former Drinks per week: 14 Alcohol use details: 5 shots per day Substance use: never Substance use type: does not use Do You Feel Safe in your Home?: Yes Lack of Transportation: YES Lack of Food: Never True Current Housing: I Have Housing Concerned About Future Housing: No Difficulty Paying Gas/Electric Bills: No Difficulty Paying for Meds: No Currently Unemployed: No Education: High School Diploma/GED Difficulty w/ Childcare or Family Care: No Living arrangements: alone Occupation/Education: occupation 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/education comments: [employer]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 Const: General: ill appearing Nutritional Appearance: thin O rientation/consciousness: patient oriented x3 Limitations: no limitations HENMT: Head: normal to inspection Ears: external ears normal F shilpi/Nose/Sinus: Normal external nose present Face and sinus: normal facial exam Mouth: Yes Normal oral and palatal mucosa present and Yes dry mucous membranes Throat: posterior oropharynx normal Eyes: Conjunctivae: conjunctivae normal Pupils: Equal, round and reactive pupils present EOM: EOMs intact bilaterally Direct Ophthalmoscopy: no photophobia Neck: Neck: normal visual inspection, no lymphadenopathy and no meningeal signs Chest: Chest palpation & inspection: normal inspection of the chest Resp: Effort & Inspection: uses accessory muscles Auscultation: wheezes and diminished lung sounds Cardio: Rate: regular rate Rhythm: regular rhythm GI: GI Palp: Yes Soft to palpation Other: No tenderness/ rigidity /rebound. Tenderness over the left inguinal ligament : General: Yes no CVA tenderness Back/Spine/Pelvis: Back: no CVA tenderness Skin: General skin exam: normal color Rashes: no rashes Wounds: no wounds Neuro: General: patient oriented x3, moves all extremities, no meningeal signs, no focal motor deficits and CN's II-XI intact bilaterally Cranial nerves: Yes Nystagmus not present Speech: normal speech Gait exam (Neuro): Normal gait present Extrem: General: normal to inspection and no clubbing, cyanosis or edema Psych: Mental Status: mental status grossly normal Affect: normal affect Course Course Emergency Course: COPD/CHF exacerbation-- patient certainly has volume overload secondary to cirrhosis/ HFpEF. Chest x-ray does not show evidence of CHF. Will hold off diuretics for now. influenza a left inguinal ligament myalgia Vital Signs Vital signs: Vital Signs Temperature 37.5 C 05/02/24 13:21 Pulse Rate 106 H 05/02/24 13:21 Respiratory Rate 30 H 05/02/24 13:21 Blood Pressure 131/86 05/02/24 13:21 Pulse Oximetry 93 05/02/24 13:21 Oxygen Delivery Room Air 05/02/24 13:21 Temperature 37.5 C 05/02/24 13:21 Pulse Rate 99 05/02/24 15:00 Respiratory Rate 23 H 05/02/24 15:00 Blood Pressure 123/71 05/02/24 15:00 Pulse Oximetry 95 05/02/24 15:00 Oxygen Delivery Room Air 05/02/24 13:21 MDM - SOB/Dyspnea MDM Narrative Medical decision making narrative: COPD/CHF exacerbation Differential Diagnosis Differential diagnosis: Likely acute exacerbation of chronic obstructive airways disease, congestive heart failure and community acquired pneumonia Medical Records Attestation: I reviewed the patient's medical records. Lab Data Attestation: I reviewed the patient's lab results. 05/02/24 13:52 05/02/24 13:52 Labs: Lab Results 05/02/24 05/02/24 Range/Units 13:51 13:52 WBC 11.9 H (4.8-10.8) K/mm3 RBC 4.13 L (4.20-5.40) M/mm3 Hgb 13.8 (11.7-13.8) g/dL Hct 42.5 H (35.0-42.0) % MCV 102.9 H (78.0-102.0) fL MCH 33.4 H (27.0-31.0) pg MCHC 32.5 (32-36) g/dL RDW 16.5 H (11.6-14.4) % Plt Count 245 (150-420) K/mm3 MPV 10.8 (9.2-11.8) fl Immature Gran % (Auto) 1.7 H (0.0-0.0) % Neut % (Auto) 81.8 H (50.0-70.0) % Lymph % (Auto) 6.8 L (18.0-42.0) % [place] % (Auto) 9.1 (2.0-11.0) % Eos % (Auto) 0.3 L (1.0-6.0) % Baso % (Auto) 0.3 (0.0-1.0) % Lymph # (Auto) 0.81 L (1.10-4.50) K/mm3 [place] # (Auto) 1.08 H (0.10-0.90) K/mm3 Eos # (Auto) 0.04 (0.02-0.50) K/mm3 Baso # (Auto) 0.04 (0.00-0.10) K/mm3 Abs Immat Gran (auto) 0.20 H (0.00-0.00) K/mm3 Absolute Neuts (auto) 9.72 H (1.70-7.20) K/mm3 Absolute Nucleated RBC 0.00 (0.00-0.00) K/mm3 Nucleated RBC % 0.0 (0-0.0) % Sodium 133 L (136-145) mmol/L Potassium 4.7 (3.5-5.1) mmol/L Chloride 96 L (98-108) mmol/L Carbon Dioxide 34 H (21-32) mmol/L Anion Gap 3 L (4-12) mmol/L BUN 12 (7-18) mg/dL Creatinine 0.94 (0.55-1.02) mg/dL Estim Creat Clear Calc 42 ml/min Estimated GFR 58 L (59 - ) Glucose 102 H (70-99) mg/dL Calculated Osmolality 275 L (285-295) mOsm/kg Lactic Acid 1.6 (0.4-2.0) mmol/L Calcium 9.6 (8.5-10.1) mg/dL Total Bilirubin 1.4 H (0.00-1.00) mg/dL AST 46 H (15-37) U/L ALT 43 (14-59) U/L Alkaline Phosphatase 118 H (46-116) U/L Troponin I 5.9 (0.00-60.4) ng/L NT-Pro-B Natriuret Pep 1736 H (0-125) pg/mL Total Protein 6.7 (6.4-8.2) g/dL Albumin 2.4 L (3.4-5.0) g/dL Lipase 26 (16-77) U/L Influenza A (RT-PCR) Positive A (Negative) Influenza B (RT-PCR) Negative (Negative) RSV (RT-PCR) Negative (Negative) SARS-CoV-2 RNA (RT-PCR) Negative (Negative) ECG Data EKG #1: ECG completion date: 05/02/24 ECG completion time: 14:00 Interpretation: normal sinus rhythm. Normal axis. Prominent Q-waves in inferior leads. No ST elevation. Discharge Plan Discharge Clinical Impression: Acute exacerbation of chronic obstructive airways disease, Influenza A, Myalgia CHF (congestive heart failure) Qualifiers: Heart failure type: diastolic Heart failure chronicity: acute on chronic Q ualified Code(s): I50.33 - Acute on chronic diastolic (congestive) heart failure Patient Disposition: Home, Self-Care Condition: Stable Instructions: Antibiotic Form, Influenza (ED), COPD (Chronic Obstructive Pulmonary Disease) (DC) Patient Language: Danish Prescriptions: New oseltamivir [Tamiflu] 75 mg capsule 75 mg PO Q12H 5 Days Qty: 10 0RF prednisone 20 mg tablet 20 mg PO BID Qty: 10 0RF azithromycin [Zithromax] 500 mg tablet 500 mg PO DAILY 3 Days Qty: 3 0RF No Action Eliquis 5 mg Tablet 5 mg PO BID benzonatate 200 mg capsule 200 mg PO TID PRN (Reason: cough) Qty: 90 0RF albuterol sulfate 90 mcg/actuation HFA aerosol inhaler 1 - 2 inh inhalation Q4-6H PRN (Reason: shortness of breath or wheezing) Qty: 8.5 2RF ondansetron 4 mg tablet,disintegrating 4 mg PO Q8H PRN (Reason: nausea and vomiting) Qty: 14 0RF Trelegy Ellipta 100-62.5-25 mcg blister with device 1 inh INHALATION DAILY Qty: 60 11RF Rx Instructions: rinse and spit Follow-up/Referrals: Jarod Hernandez MD [Primary Care Provider] - Time of Disposition: 15:10
--- NOTE | 2024-05-02 13:51 | ECG_ITS ---
Test Date: 2024-05-02 14:00:18 Measurements Intervals [place] Rate: 83 P: 84 CT: 149 QRS: 70 QRSD: 64 T: 53 QT: 338 QTc: 398 Interpretive Statements SINUS RHYTHM WITH MARKED SINUS ARRHYTHMIA Compared to ECG 04/27/2024 16:21:00 NO SIGNIFICANT CHANGES Electronically Signed On 05-02-2024 15:50:17 VESSEL BUILDER by Checo Smith M.D.
[2024-05-02 13:58] LABS: Basophils Absolute Auto 0.04 K/mm3 (0.00-0.10); Basophils Percent Auto 0.3 % (0.0-1.0); Eosinophils Absolute Auto 0.04 K/mm3 (0.02-0.50); Eosinophils Percent Auto 0.3 % (1.0-6.0); Hematocrit 42.5 % (35.0-42.0); Hemoglobin 13.8 g/dL (11.7-13.8); Immature Granulocyte Percent A 1.7 % (0.0-0.0); Lymphocytes Absolute Auto 0.81 K/mm3 (1.10-4.50); Lymphocytes Percent Auto 6.8 % (18.0-42.0); Mean Corpuscular HGB Conc 32.5 g/dL (32-36); Mean Corpuscular Hemoglobin 33.4 pg (27.0-31.0); Mean Corpuscular Volume 102.9 fL (78.0-102.0); Mean Platelet Volume 10.8 fl (9.2-11.8); Monocytes Absolute Auto 1.08 K/mm3 (0.10-0.90); Monocytes Percent Auto 9.1 % (2.0-11.0); Neutrophils Absolute Auto 9.72 K/mm3 (1.70-7.20); Neutrophils Percent Auto 81.8 % (50.0-70.0); Platelet Count Result 245 K/mm3 (150-420); Red Blood Count 4.13 M/mm3 (4.20-5.40); Red Cell Distribution Width 16.5 % (11.6-14.4); White Blood Count 11.9 K/mm3 (4.8-10.8)
--- NOTE | 2024-05-02 14:07 | PC.NURSE ---
PT IS SITTING UP ON STRETCHER AWAITING NEB TX AT THIS TIME. DAUGHTER AT BEDSIDE. PT SOB HAS IMPROVED SINCE AT REST, HOWEVER STILL HAS MILD DIFFICULTY. WILL CONTINUE TO MONITOR.
[2024-05-02 14:10] LABS: Lactic Acid Reflex 1.6 mmol/L (0.4-2.0)
[2024-05-02] MEDS: IPRATROPIUM 0.5 MG/ALBUTEROL SULFATE 2.5 MG AMPUL.NEB 3 ML INHALATION (14:10)
--- OUTSIDE RECORDS SUMMARY | 2024-05-02 14:16 | XMS_ITS | Referral Summary ---
Author Organization [facility] Check Address [address] [place] [address] Care Team Providers Care Steamboat Captain Name Role Phone Jarod Hernandez MD Primary Care Provider [phone] Source Comments [facility] Check,non-owned Affiliates and Associated Physician Practices is amultiple site organization consisting of ambulatory clinics and hospital sitesin [place], [place], [place] and [place]. This disclosure is being madepursuant to the Care Everywhere program and may not contain all information available regarding this patient. Last updated 17.[facility] Check Allergies Active Allergy Reactions Criticality Noted Date [...] Comments Blood Pressure 103/76 05/31/2023 10:50 AM ALLIANCE CONSULTANT Pulse 109 05/31/2023 10:50 AM ALLIANCE CONSULTANT Temperature 36.7 ??C (98.1 ??F) 05/31/2023 10:[address] Respiratory Rate 14 11/18/2015 10:51 AM CDT Oxygen Saturation 89% 05/31/2023 10:50 AM ALLIANCE CONSULTANT Inhaled Oxygen Concentration - - Weight 58.1 kg (128 lb) 05/31/2023 10:50 AM ALLIANCE CONSULTANT Height 165.1 cm (5' 5 ) 05/31/2023 10:50 AM ALLIANCE CONSULTANT Body Mass Index 21.3 05/31/2023 10:50 AM ALLIANCE CONSULTANT Plan of Treatment Not on file Care Teams Steamboat Captain Relationship Specialty Start Date End Date Jarod Hernandez MD [address] [place] [phone] PCP - General 07/25/15
--- OUTSIDE RECORDS SUMMARY | 2024-05-02 14:16 | XMS_ITS | Clinical Summary ---
Author Organization [facility] Address [address] [place] [address]. [place] [address] [place] [address] Care Team Providers Care Banking Services Advisor Name Role Phone Jarod Hernandez MD Primary Care Provider [phone] Raymon Conway MD Unavailable [phone] Mari Guajardo PA-C Unavailable [phone] Allergies Active Allergy Reactions Criticality Noted [...] Date Diagnosed Date Atrial fibrillation with RVR ([facility]/HCC [facility]) 0 06/03/2023 Pneumonia 06/02/2023 Social History Tobacco [...] doctor or pharmacy Never 07/19/2023 [facility] Utilities Answer Date Recorded In the past 12 months has e [employer], gas, oil, or water [employer] threatened to shut off services in your [...] place to sleep or slept in a intermediate (including now)? No 06/05/2023 Comments Unknown Sex [...] Description 08/15/2024 9:30 AM CDT Office Visit [facility] [place] [phone] Mari Guajardo PA-C [address] [place] [address] Health Maintenance Due Date Last [...] Noemi Machado RN Insurance MEDICARE PART A EXFO OPEN ACCESS [facility] Advance Directives * Full Code (Latest Code Status on File) Date Activated Date Inactivated Comments 07/07/2023 7:48 AM * Full Code Date Activated Date Inactivated Comments 06/07/2023 7:45 AM 06/23/2023 7:20 PM Care Teams Banking Services Advisor Relationship Specialty Start Date End Date Jarod Hernandez MD [address] [place] [id number] PCP - General FAMILY PRACTICE 06/03/23 Raymon Conway MD [address] [place] [address] Consulting Physician CLINICAL CARDIAC ELECTROPHYSIOLOGY 08/09/23 Mari Guajardo PA-C [address] [place] [phone] Referring Physician PHYSICIAN LEATHER POLISHER 02/13/24
--- OUTSIDE RECORDS SUMMARY | 2024-05-02 14:16 | XMS_ITS | Encounter Summary ---
Author Organization [facility] Address [address] [place] [address]. [place] [address] [place] [address] Care Team Providers Care Land Acquisition Manager Name Role Phone Jarod Hernandez MD Primary Care Provider [phone] Raymon Conway MD Unavailable [phone] Mari Guajardo PA-C Unavailable [phone] Encounter Details Date Type Department Care Team (Late st Contact Info) Description 06/27/2023 Hospital Follow-up Call [facility] [address] [place] [address] Cassandra Medina RN Social History [...] materials from doctor or pharmacy Rarely 07/01/2023 [facility] Utilities Answer Date Recorded In the [...] place to sleep or slept in a skilled nursing (including now)? No 06/05/2023 Comments Unknown Sex and Gender Information Value Date Recorded Sex Assigned at Not on file Legal Sex Female 1:23 AM CDT Gender Identity Not on file Sexual Orientation Not on file documented as of this encounter Functional Status * Are you deaf or do you have serious difficulty hearing Answer Date of Assessment Author Status No 06/02/2023 9:30 PM C D REACTOR OPERATOR Anita Chang, R N Active * Are you blind or do you have serious difficulty seeing, even when wearing glasses? Answer Date of Assessment Author Status No 06/02/2023 9:30 PM C D REACTOR OPERATOR Kb Changee, R N Active * Do you have serious difficulty walking or climbing stairs? Answer Date of Assessment Author Status Yes 06/02/2023 9:30 PM C D REACTOR OPERATOR Kb Changee, R N Active * Do you have difficulty dressing or bathing? Answer Date of Assessment Author Status Yes 06/02/2023 9:30 PM C D REACTOR OPERATOR Anita Chang, R N Active * Because of a physical, mental, or emotional condition, do you have difficulty doing errands alone such as visiting a doctor's office or shopping? Answer Date of Assessment Author Status Yes 06/02/2023 9:30 PM C D REACTOR OPERATOR Kb Changee, R N Active documented as of this encounter Mental Status * Because of a physical, mental, or emotional condition, do you have serious difficulty concentrating, remembering, or making decisions? Answer Entry Date Author Status No 06/02/2023 9:30 PM C D REACTOR OPERATOR Anita Chang, R N Active documented in this encounter Plan of Treatment Upcoming Encounters Date Type Department Care Team (Late st Contact Info) Description 08/15/2024 9:30 AM CDT Office Visit [facility] [place] [address] Mari Guajardo PA-C [address] [place], [place] [phone] documented as of this encounter Goals Goal Patient Goal Type Associated Problems Recent Progress Patient-Stated? Author Safety - demonstrates understanding of home safety measures Lifestyle Noemi Machado RN Safety ? Patient/family will have appropriate support at home upon discharge Lifestyle Noemi Machado RN documented as of this encounter Visit Diagnoses Not on filedocumented in this encounter Care Teams Land Acquisition Manager Relationship Specialty Start Date End Date Jarod Hernandez MD [address] [place] [address] PCP - General FAMILY PRACTICE 06/03/23 Raymon Conway MD [address] [place] [address] Consulting Physician CLINICAL CARDIAC ELECTROPHYSIOLOGY 08/09/23 Mari Guajardo PA-C [address] [place] [address] Referring Physician PHYSICIAN EMERGENCY VEHICLE DISPATCHER 02/13/24 documented as of this encounter
--- OUTSIDE RECORDS SUMMARY | 2024-05-02 14:16 | XMS_ITS | Clinical Summary ---
Author Organization [facility] [employer] Address [address] [facility] [place] [address] Care Team Providers Care Unix Architect Name Role Phone Jarod Hernandez MD Primary Care Provider [phone] Source Comments [facility] [employer] [facility],non-owned Affiliates and Associated Physician Practices is amultiple site organization consisting of ambulatory clinics and hospital sitesin [place], [place], [place] and [place]. This disclosure is being madepursuant to the Care Everywhere program and may not contain all information available regarding this patient. Last updated 17.[facility] [employer] [facility] Allergies Active Allergy Reactions Criticality Noted Date [...] Comments Blood Pressure 103/76 05/31/2023 10:50 AM AUTOMATIC SEAMER Pulse 109 05/31/2023 10:50 AM AUTOMATIC SEAMER Temperature 36.7 ??C (98.1 ??F) 05/31/2023 10:[address] Respiratory Rate 14 11/18/2015 10:51 AM CDT Oxygen Saturation 89% 05/31/2023 10:50 AM AUTOMATIC SEAMER Inhaled Oxygen Concentration - - Weight 58.1 kg (128 lb) 05/31/2023 10:50 AM AUTOMATIC SEAMER Height 165.1 cm (5' 5 ) 05/31/2023 10:50 AM AUTOMATIC SEAMER Body Mass Index 21.3 05/31/2023 10:50 AM AUTOMATIC SEAMER Plan of Treatment Health Maintenance Due Date [...] age to complete this topic Care Teams Unix Architect Relationship Specialty Start Date End Date Jarod Hernandez MD [address] [place] [address] PCP - General 07/25/15
--- OUTSIDE RECORDS SUMMARY | 2024-05-02 14:16 | XMS_ITS | Clinical Summary ---
Author Organization [facility] Administrative Offices Address [address] [place] [address] Care Team Providers Care Inbound Sales Advisor Name Role Phone Jarod Hernandez MD Primary Care Provider [phone] Allergies Active Allergy Reactions Criticality Noted Date [...] Department Care Team Description 04/26/2024 9:45 AM SENIOR CREDIT OFFICER Office Visit [facility] Oncology and Hematology [address] [place] [phone] Zaki Leon MD Acute deep vein thrombosis (DVT) of distal vein of left lower extremity (CMS/HCC); Hereditary hemochromatosis; Erythrocytosis 04/26/2024 External Device Data STL ABSTRACTION Provider, Abstract 04/25/2024 External Device Data STL ABSTRACTION Provider, Abstract 04/25/2024 Telephone [facility] Oncology and Hematology [address] [place] [phone] Zaki Leon MD Diarrhea 04/24/2024 External Device Data STL ABSTRACTION Provider, Abstract 04/17/2024 External Device Data STL ABSTRACTION Provider, Abstract 03/21/2024 Telephone [facility] Oncology and Hematology - [address] [place] [address] Zaki eLon MD Lethargy 03/20/2024 Orders Only [facility] Oncology and Hematology - [address] [place] [address] Zaki Leon MD 02/13/2024 Orders Only [facility] Oncology and Hematology - [address] [place] [address] Zaki Leon MD 02/10/2024 Orders Only [facility] Oncology and Hematology - [address] [place] [address] Zaki Leon MD 2024 External Device Data [...] Date Smoking Tobacco: Every Day Cigarettes 1 40.5 Started: 11/15/1983 Smokeless Tobacco: Never Tobacco Cessation:Ready [...] Comments Blood Pressure 87/54 04/26/2024 9:57 AM SENIOR CREDIT OFFICER Pulse 55 04/26/2024 9:57 AM SENIOR CREDIT OFFICER Temperature 36.4 ??C (97.5 ??F) 04/26/2024 9:57 AM CS T Respiratory Rate 20 04/26/2024 9:57 AM SENIOR CREDIT OFFICER Oxygen Saturation 92% 04/26/2024 9:57 AM SENIOR CREDIT OFFICER Inhaled Oxygen Concentration - - Weight 57.2 kg (126 lb) 04/26/2024 9:57 AM SENIOR CREDIT OFFICER Height 165.1 cm (5' 5 ) 11/15/2023 2:07 PM CDT Body Mass Index 20.97 11/15/2023 2:07 PM CDT Plan of Treatment Upcoming Encounters Date Type Department Care Team (Late st Contact Info) Description 05/09/2024 4:30 PM SENIOR CREDIT OFFICER Telephone Check Up [facility] Oncology and Hematology - [address] [facility] [address] [place] [address] Zaki Leon MD [address] [facility] [address] [place] [address] Health Maintenance Due Date Last [...] Comments IRON LEVEL Routine 03/19/2024 1:20 PM SENIOR CREDIT OFFICER COMPREHENSIVE METABOLIC PANEL Routine 03/19/2024 1:19 PM SENIOR CREDIT OFFICER US VENOUS DOPPLER LEG LEFT Routine 03/19/2024 11:21 AM SENIOR CREDIT OFFICER CBC WITH DIFFERENTIAL Routine 02/10/2024 2:03 PM SENIOR CREDIT OFFICER IRON LEVEL Routine 02/10/2024 12:38 PM SENIOR CREDIT OFFICER IRON LEVEL Routine 02/10/2024 12:07 PM SENIOR CREDIT OFFICER from Last 3 Months Results * IRON LEVEL (03/19/2024 1:20 PM SENIOR CREDIT OFFICER) Only the most recent of3 resultswithin the time period is included. Blood us Zaki Leon MD CHEMISTRY ORDERABLES Final Resu lt * COMPREHENSIVE METABOLIC PANEL (03/19/2024 1:19 PM SENIOR CREDIT OFFICER) Blood us Zaki Leon MD CHEMISTRY ORDERABLES Final Resu lt * US VENOUS DOPPLER LEG LEFT (03/19/2024 11:21 AM SENIOR CREDIT OFFICER) Anatomical Region Laterality Modality Lower Extremity Other us Zaki Leon MD US ORDERABLES Final Result * CBC WITH DIFFERENTIAL (02/10/2024 2:03 PM SENIOR CREDIT OFFICER) Blood us Zaki Leon MD HEMATOLOGY ORDERABLES Final Res ult from Last 3 Months Insurance Care Teams Inbound Sales Advisor Relationship Specialty Start Date End Date Jarod Hernandez MD [address] [place] [phone] PCP - General Family Practice 01/18/19
--- OUTSIDE RECORDS SUMMARY | 2024-05-02 14:16 | XMS_ITS | Patient Health Summary ---
Author Organization [facility] Address [address] [place] [address] Care Team Providers Care Inspector Agricultural Commodities Name Role Phone Jarod Hernandez MD Primary Care Provider [phone] Note from [facility],non-owned Affiliates and Associated Physician Practices is amultiple site organization consisting of ambulatory clinics and hospital sitesin [place], [place], [place] and [place]. This disclosure is being madepursuant to the Care Everywhere program and may not contain all information available regarding this patient. Last updated 17.[facility] Allergies * Povidone Iodine(Swelling) -Low Criticality Medications [...] (one) tablet by mouth once daily * ulzzviuqohv-onlywlocw-fdnjwj (Trelegy Ellipta) 200-62.5-25 MCG/ACT inhaler Inhale 1 [...] dri nk = 0.6 oz pure alcohol) One[employer] shooters 3/day, previous 10-15 daily Sex and Gender Information Value Date Recorded Sex Assigned at Not on file Gender Identity Not on file Sexual Orientation Not on file Last Filed Vital Signs Vital Sign Reading Time Taken Comments Blood Pressure 103/76 05/31/2023 10:50 AM HIGH SCHOOL FRENCH TEACHER Pulse 109 05/31/2023 10:50 AM HIGH SCHOOL FRENCH TEACHER Temperature 36.7 ??C (98.1 ??F) 05/31/2023 10:[address] Respiratory Rate 14 11/18/2015 10:51 AM CDT Oxygen Saturation 89% 05/31/2023 10:50 AM HIGH SCHOOL FRENCH TEACHER Inhaled Oxygen Concentration - - Weight 58.1 kg (128 lb) 05/31/2023 10:50 AM HIGH SCHOOL FRENCH TEACHER Height 165.1 cm (5' 5 ) 05/31/2023 10:50 AM HIGH SCHOOL FRENCH TEACHER Body Mass Index 21.3 05/31/2023 10:50 AM HIGH SCHOOL FRENCH TEACHER Procedures * LA LIVER ELASTOGRAPHY(Performed 05/31/2023) Performed for Fatty liver * IMAGING/RADIOLOGY/XRAY RESULTS ORDER(Performed 02/27/2019) * CT TEMPORAL BONES WO CONTRAST(Performed 01/27/2018) Performed for ETD (Eustachian tube dysfunction), left * LA REMOVE CERUMEN IMPACTED W INSTR LEFT EAR(Performed 08/12/2017) Performed for Hearing loss of left ear, unspecified hearing loss type, Impacted cerumen of left ear, Chronic rhinitis * PROC CERUMEN REMOVAL(Performed 07/18/2017) Performed for Sialolithiasis, Chronic sialoadenitis, Hearing loss of left ear, unspecified hearing loss type, Nasal congestion, Impacted cerumen of left ear * PATHOLOGY TISSUE(Performed 10/27/2015) Results * LA LIVER ELASTOGRAPHY (05/31/2023 10:38 AM HIGH SCHOOL FRENCH TEACHER) Narrative Jered Chilel MD - 05/31/2023 10:38 AM HIGH SCHOOL FRENCH TEACHER Jered Chilel MD ? 05/31/2023 ??5:38 PM [...] patients with nonalcoholic fatty liver disease. Gastroenterology 2019;156:9488-0455. Gladys ABRAHAM, Rex R, Van Brett ML, [...] at-risk nonalcoholic steatohepatitis (DAVIS) in a [place] cohort and comparison to other non-invasive algorithms. PLoS ONE (2021) 17: [id number]. Walker ALVARADO, Tejal J, Chay ZM, et al. Enhanced diagnosis of advanced fibrosis and cirrhosis in individuals with NAFLD using FibroScan-based Agile scores. J Hepatol (2022) 78: 247-259. Fibroscan LSM can also be used with laboratory parameters without formulas to assess prognosis. According to the Baveno-VII criteria (Child, 202), Fibroscan LSM ?15 kPa plus a platelet count of ?[id number]/L rules out clinically significant portal hypertension (sensitivity and negative predictive value >90%) in patients with compensated advanced chronic liver disease. Sotomayor, Renan Whitley, Reji G, Josefina T, Kourtney Montano on behalf of the [facility] VII Faculty. [facility]--Renewing consensus in portal hypertension. J Hepatol (2021) 76: 959-974 Assessing the likelihood of advanced fibrosis in patients with intermediate liver stiffness measurement (LSM) by Fibroscan (e.g., 8-15 kPa) can be improved by also calculating the FIB-4 score (Todde et al. Hepatology Communications 2019;3:9880-0346) or NAFLD Fibrosis score (Harris et al. Clinical Gastroenterology and Hepatology 2019;17:7609-4690 using ??routine clinical data. Note: 1. Fibroscan [...] additional interpretive data was last updated 08/07/22.) [email or web address] Duane Rogers MD PROCEDURE/MINOR SURG ICAL ORDERABLES * IMAGING RADIOLOGY XRAY RESULTS ORDER (02/27/2019 10:47 AM HIGH SCHOOL FRENCH TEACHER) Anatomical Region Laterality Modality Other Narrative 02/27/2019 10:47 AM HIGH SCHOOL FRENCH TEACHER Ordered by an unspecified provider. Scanned Document [...] temporal bone. Dictated by Kai Lowery M.D. (radiology asst) I, Dr. MARIVEL VENTURA have personally reviewed [...] temporal bone. Dictated by Kai Lowery M.D. (radiology asst) I, Dr. MARIVEL VENTURA have personally reviewed and interpreted this examination/study. This report was electronically signed by MARIVEL VENTURA on 01/27/20184:26 PM . Rocky Berumen MD CT ORDERABLES * LA REMOVE CERUMEN IMPACTED W INSTR LEFT EAR [...] PATHOLOGY TISSUE (10/27/2015 10:07 AM CDT) Pathologist [facility] Surgical Pathology Tissue ACCESSION No: [id number] CLINICAL HISTORY: There is no clinical history provided on the requisition. FINAL DIAGNOSIS: RIGHT PAROTID DUCT STONE: - ? STONE GROSS DESCRIPTION: The specimen is received fresh in one container for gross examination only, labeled with the patient's name, Stefanie Raymundo and right parotid duct stone for gross , and consists of one firm, pink-red stone measuring 0.6 cm in greatest dimension. ??No sections are taken. ??This is a gross only specimen. CM/edk MICROSCOPIC DESCRIPTION: None. ES/CM/edk The performance characteristics of all immunohistochemical and indirect immunofluorescence stains (if any) cited in this report were determined by the Histopathology Laboratory of [facility].?? Some of these tests were developed by [...] by Carlo Rivas MD. Electronically signed 10/28/2015 [facility] ([facility]) Other (qualifier value) 10/27/2015 10:07 AM CDT 10/27/2015 12:02 PM CDT Narrative [facility] ([facility]) - 10/28/2015 4:32 PM CDT Collection Date->10/27/15 Collection Time->10:07 AM Specimen A->Other ? 1. Right parotid duct stone gross only Rocky Radford MD LAB - PATHOLOGY/C YTOLOGY ORDERABLES [facility] ([facility]) Care Teams Inspector Agricultural Commodities Relationship Specialty Start Date End Date Jarod Hernandez MD [address] [place] [phone] PCP - General 07/25/15
[2024-05-02 14:17] LABS: NT Pro B Type Natriuretic Pept 1736 pg/mL (0-125)
[2024-05-02 14:17] LABS: Alanine Aminotransferase 43 U/L (14-59); Albumin Level 2.4 g/dL (3.4-5.0); Alkaline Phosphatase 118 U/L (46-116); Anion Gap 3 mmol/L (4-12); Aspartate Amino Transferase 46 U/L (15-37); Bilirubin,Total 1.4 mg/dL (0.00-1.00); Blood Urea Nitrogen 12 mg/dL (7-18); Calcium 9.6 mg/dL (8.5-10.1); Carbon Dioxide 34 mmol/L (21-32); Chloride 96 mmol/L (98-108); Estimated CRCL calculation 42 ml/min; Estimated Glomerular Filt Rate 58; Glucose 102 mg/dL (70-99); Lipase 26 U/L (16-77); Osmolality Calculated 275 mOsm/kg (285-295); Potassium 4.7 mmol/L (3.5-5.1); Sodium 133 mmol/L (136-145); Total Protein 6.7 g/dL (6.4-8.2); Troponin I 5.9 ng/L (0.00-60.4)
[2024-05-02 14:23] LABS: Influenza B QL RT-PCR Negative (Negative); SARS-CoV-2 RNA PCR Negative (Negative)
[2024-05-02 14:24] LABS: Influenza A QL RT-PCR Positive (Negative); RSV RNA, RT-PCR Negative (Negative)
--- NOTE | 2024-05-02 14:52 | PC.NURSE ---
PT IS SITTING UP ON STRETCHER, SON AT BEDSIDE. SODA PROVIDED AND PT IS REPOSITIONED. PT DENIES ANY OTHER NEEDS OR COMPLAINTS. PT IS AWAITING RESULTS AT THIS TIME. WILL CONTINUE TO MONITOR.
--- OUTSIDE RECORDS SUMMARY | 2024-05-02 15:01 | XMS_ITS | Clinical Summary ---
Author Organization [facility] Address [address] [place] [address]. [place] [address] [place] [address] Care Team Providers Care Chief Crna Name Role Phone Jarod Hernandez MD Primary Care Provider [phone] Raymon Conway MD Unavailable [phone] Mari Guajardo PA-C Unavailable [phone] Allergies Active Allergy Reactions Criticality Noted [...] Date Diagnosed Date Atrial fibrillation with RVR ([facility]/HCC [facility]) 0 06/03/2023 Pneumonia 06/02/2023 Social History Tobacco [...] materials from doctor or pharmacy Never 07/19/2023 [facility] Utilities Answer Date Recorded In the past 12 months has e [employer], gas, oil, or water [employer] threatened to shut off services in your [...] place to sleep or slept in a retirement (including now)? No 06/05/2023 Comments Unknown Sex [...] Description 08/15/2024 9:30 AM CDT Office Visit [facility] [place] [phone] Mari Guajardo PA-C [address] [place] [address] Health Maintenance Due Date Last [...] Noemi Machado RN Insurance MEDICARE PART A [employer] OPEN ACCESS [facility] Advance Directives * Full Code (Latest Code Status on File) Date Activated Date Inactivated Comments 07/07/2023 7:48 AM * Full Code Date Activated Date Inactivated Comments 06/07/2023 7:45 AM 06/23/2023 7:20 PM Care Teams Chief Crna Relationship Specialty Start Date End Date Jarod Hernandez MD [address] [place] [place] [phone] PCP - General FAMILY PRACTICE 06/03/23 Raymon Conway MD [address] [place] [address] Consulting Physician CLINICAL CARDIAC ELECTROPHYSIOLOGY 08/09/23 Mari Guajardo PA-C [address] [place] [address] Referring Physician PHYSICIAN INTERPRETER FOR THE DEAF 02/13/24
--- OUTSIDE RECORDS SUMMARY | 2024-05-02 15:01 | XMS_ITS | Encounter Summary ---
Author Organization [facility] Address [address] [place] [address]. [place] [address] [place] [address] Care Team Providers Care Take Up Operator Name Role Phone Jarod Hernandez MD Primary Care Provider [phone] Raymon Conway MD Unavailable [phone] Mari Guajardo PA-C Unavailable [phone] Encounter Details Date Type Department Care Team (Late st Contact Info) Description 06/27/2023 Hospital Follow-up Call [facility] [address] [place] [address] Cassandra Medina RN Social History [...] materials from doctor or pharmacy Rarely 07/01/2023 [facility] Utilities Answer Date Recorded In the past [...] place to sleep or slept in a senior living (including now)? No 06/05/2023 Comments Unknown Sex and Gender Information Value Date Recorded Sex Assigned at Not on file Legal Sex Female 1:23 AM CDT Gender Identity Not on file Sexual Orientation Not on file documented as of this encounter Functional Status * Are you deaf or do you have serious difficulty hearing Answer Date of Assessment Author Status No 06/02/2023 9:30 PM BUNDLE HELPER Anita Chang, R N Active * Are you blind or do you have serious difficulty seeing, even when wearing glasses? Answer Date of Assessment Author Status No 06/02/2023 9:30 PM BUNDLE HELPER Kb Changee, R N Active * Do you have serious difficulty walking or climbing stairs? Answer Date of Assessment Author Status Yes 06/02/2023 9:30 PM BUNDLE HELPER Kb Changee, R N Active * Do you have difficulty dressing or bathing? Answer Date of Assessment Author Status Yes 06/02/2023 9:30 PM BUNDLE HELPER Anita Chang, R N Active * Because of a physical, mental, or emotional condition, do you have difficulty doing errands alone such as visiting a doctor's office or shopping? Answer Date of Assessment Author Status Yes 06/02/2023 9:30 PM BUNDLE HELPER Kb Changee, R N Active documented as of this encounter Mental Status * Because of a physical, mental, or emotional condition, do you have serious difficulty concentrating, remembering, or making decisions? Answer Entry Date Author Status No 06/02/2023 9:30 PM BUNDLE HELPER Anita Chang, R N Active documented in this encounter Plan of Treatment Upcoming Encounters Date Type Department Care Team (Late st Contact Info) Description 08/15/2024 9:30 AM CDT Office Visit [facility] [place] [address] Mari Guajardo PA-C [address] [place], [place] [phone] documented as of this encounter Goals Goal Patient Goal Type Associated Problems Recent Progress Patient-Stated? Author Safety - demonstrates understanding of home safety measures Lifestyle Noemi Machado RN Safety ? Patient/family will have appropriate support at home upon discharge Lifestyle Noemi Machado RN documented as of this encounter Visit Diagnoses Not on filedocumented in this encounter Care Teams Take Up Operator Relationship Specialty Start Date End Date Jarod Hernandez MD [address] [place] [address] PCP - General FAMILY PRACTICE 06/03/23 Raymon Conway MD [address] [place] [address] Consulting Physician CLINICAL CARDIAC ELECTROPHYSIOLOGY 08/09/23 Mari Guajardo PA-C [address] [place] [address] Referring Physician PHYSICIAN SCRAP WORKER 02/13/24 documented as of this encounter
--- OUTSIDE RECORDS SUMMARY | 2024-05-02 15:01 | XMS_ITS | Referral Summary ---
Author Organization [facility] Address [address] [place] [address] Care Team Providers Care Commercial Attorney Name Role Phone Jarod Hernandez MD Primary Care Provider [phone] Source Comments [facility],non-owned Affiliates and Associated Physician Practices is amultiple site organization consisting of ambulatory clinics and hospital sitesin [place], [place], [place] and [place]. This disclosure is being madepursuant to the Care Everywhere program and may not contain all information available regarding this patient. Last updated 17.[facility] Allergies Active Allergy Reactions Criticality Noted Date [...] Comments Blood Pressure 103/76 05/31/2023 10:50 AM GLOVE FORMER Pulse 109 05/31/2023 10:50 AM [employer]OVE [employer] Temperature 36.7 ??C (98.1 ??F) 05/31/2023 10:[address] Respiratory Rate 14 11/18/2015 10:51 AM CDT Oxygen Saturation 89% 05/31/2023 10:50 AM GLOVE FORMER Inhaled Oxygen Concentration - - Weight 58.1 kg (128 lb) 05/31/2023 10:50 AM GLOVE FORMER Height 165.1 cm (5' 5 ) 05/31/2023 10:50 AM GLOVE FORMER Body Mass Index 21.3 05/31/2023 10:50 AM GLOVE FORMER Plan of Treatment Not on file Care Teams Commercial Attorney Relationship Specialty Start Date End Date Jarod Hernandez MD [address] [place] [phone] PCP - General 07/25/15
--- OUTSIDE RECORDS SUMMARY | 2024-05-02 15:01 | XMS_ITS | Patient Health Summary ---
Author Organization [facility] Address [address] [place] [address] Care Team Providers Care Superintendent Pressure Name Role Phone Jarod Hernandez MD Primary Care Provider [phone] [facility],non-owned Affiliates and Associated Physician Practices is amultiple site organization consisting of ambulatory clinics and hospital sitesin [place], [place], [place] and [place]. This disclosure is being madepursuant to the Care Everywhere program and may not contain all information available regarding this patient. Last updated 17.[facility] Allergies * Povidone Iodine(Swelling) -Low Criticality Medications [...] (one) tablet by mouth once daily * zgfatzpqbfl-prdbenbyo-saaqbv (Trelegy Ellipta) 200-62.5-25 MCG/ACT inhaler Inhale 1 [...] dri nk = 0.6 oz pure alcohol) THUBIT shooters 3/day, previous 10-15 daily Sex and Gender Information Value Date Recorded Sex Assigned at Not on file Gender Identity Not on file Sexual Orientation Not on file Last Filed Vital Signs Vital Sign Reading Time Taken Comments Blood Pressure 103/76 05/31/2023 10:50 AM HAT PARTS CUTTER MACHINE Pulse 109 05/31/2023 10:50 AM HAT PARTS CUTTER MACHINE Temperature 36.7 ??C (98.1 ??F) 05/31/2023 10:[address] Respiratory Rate 14 11/18/2015 10:51 AM CDT Oxygen Saturation 89% 05/31/2023 10:50 AM HAT PARTS CUTTER MACHINE Inhaled Oxygen Concentration - - Weight 58.1 kg (128 lb) 05/31/2023 10:50 AM HAT PARTS CUTTER MACHINE Height 165.1 cm (5' 5 ) 05/31/2023 10:50 AM HAT PARTS CUTTER MACHINE Body Mass Index 21.3 05/31/2023 10:50 AM HAT PARTS CUTTER MACHINE Procedures * ID LIVER ELASTOGRAPHY(Performed 05/31/2023) Performed for Fatty liver * IMAGING/RADIOLOGY/XRAY RESULTS ORDER(Performed 02/27/2019) * CT TEMPORAL BONES WO CONTRAST(Performed 01/27/2018) Performed for ETD (Eustachian tube dysfunction), left * ID REMOVE CERUMEN IMPACTED W INSTR LEFT EAR(Performed 08/12/2017) Performed for Hearing loss of left ear, unspecified hearing loss type, Impacted cerumen of left ear, Chronic rhinitis * PROC CERUMEN REMOVAL(Performed 07/18/2017) Performed for Sialolithiasis, Chronic sialoadenitis, Hearing loss of left ear, unspecified hearing loss type, Nasal congestion, Impacted cerumen of left ear * PATHOLOGY TISSUE(Performed 10/27/2015) Results * ID LIVER ELASTOGRAPHY (05/31/2023 10:38 AM HAT PARTS CUTTER MACHINE) Narrative Jered Chilel MD - 05/31/2023 10:38 AM HAT PARTS CUTTER MACHINE Jered Chilel MD ? 05/31/2023 ??5:38 PM [...] patients with nonalcoholic fatty liver disease. Gastroenterology 2019;156:7463-0409. Gladys ABRAHAM, Rex R, Van Brett ML, [...] at-risk nonalcoholic steatohepatitis (DAVIS) in a [place] cohort and comparison to other non-invasive algorithms. PLoS ONE (2021) 17: c3669813. Walker ALVARADO, Tejal J, Chay ZM, et al. Enhanced diagnosis of advanced fibrosis and cirrhosis in individuals with NAFLD using FibroScan-based Agile scores. J Hepatol (2022) 78: 247-259. Fibroscan LSM can also be used with laboratory parameters without formulas to assess prognosis. According to the Baveno-VII criteria (Child, 202), Fibroscan LSM ?15 kPa plus a platelet count of ?[id number]/L rules out clinically significant portal hypertension (sensitivity and negative predictive value >90%) in patients with compensated advanced chronic liver disease. Sotomayor, Renan Whitley, Reji G, Josefina T, Kourtney Montano on behalf of the [facility] VII Faculty. [facility]--Renewing consensus in portal hypertension. J Hepatol (2021) 76: 959-974 Assessing the likelihood of advanced fibrosis in patients with intermediate liver stiffness measurement (LSM) by Fibroscan (e.g., 8-15 kPa) can be improved by also calculating the FIB-4 score (Todde et al. Hepatology Communications 2019;3:3004-1555) or NAFLD Fibrosis score (Harris et al. Clinical Gastroenterology and Hepatology 2019;17:1624-6893 using ??routine clinical data. Note: 1. Fibroscan [...] additional interpretive data was last updated 08/07/22.) [email or web address] Duane Rogers MD PROCEDURE/MINOR SURG ICAL ORDERABLES * IMAGING RADIOLOGY XRAY RESULTS ORDER (02/27/2019 10:47 AM HAT PARTS CUTTER MACHINE) Anatomical Region Laterality Modality Other Narrative 02/27/2019 10:47 AM HAT PARTS CUTTER MACHINE Ordered by an unspecified provider. Scanned Document [...] temporal bone. Dictated by Kai Lowery M.D. (vice president process) I, Dr. MARIVEL VENTURA have personally reviewed [...] temporal bone. Dictated by Kai Lowery M.D. (vice president process) I, Dr. MARIVEL VENTURA have personally reviewed and interpreted this examination/study. This report was electronically signed by MARIVEL VENTURA on 01/27/20184:26 PM . Rocky Berumen MD CT ORDERABLES * ID REMOVE CERUMEN IMPACTED W INSTR LEFT EAR [...] PATHOLOGY TISSUE (10/27/2015 10:07 AM CDT) Pathologist [facility] Surgical Pathology Tissue ACCESSION No: [id number] CLINICAL HISTORY: There is no clinical history [...] were determined by the Histopathology Laboratory of [facility].?? Some of these tests were developed [...] by Carlo Rivas MD. Electronically signed 10/28/2015 [facility] ([facility]) Other (qualifier value) 10/27/2015 10:07 AM CDT 10/27/2015 12:02 PM CDT Narrative [facility] ([facility]) - 10/28/2015 4:32 PM CDT Collection Date->10/27/15 Collection Time->10:07 AM Specimen A->Other ? 1. Right parotid duct stone gross only Rocky Radford MD LAB - PATHOLOGY/C YTOLOGY ORDERABLES [facility] ([facility]) Care Teams Superintendent Pressure Relationship Specialty Start Date End Date Jarod Hernandez MD [address] [place] [phone] PCP - General 07/25/15
--- OUTSIDE RECORDS SUMMARY | 2024-05-02 15:02 | XMS_ITS | Clinical Summary ---
Author Organization [facility] [employer] Address [address] [facility] [place] [address] Care Team Providers Care Bisque Kiln Drawer Name Role Phone Jarod Hernandez MD Primary Care Provider [phone] Source Comments [facility] [employer] [facility],non-owned Affiliates and Associated Physician Practices is amultiple site organization consisting of ambulatory clinics and hospital sitesin [place], [place], [place] and [place]. This disclosure is being madepursuant to the Care Everywhere program and may not contain all information available regarding this patient. Last updated 17.[facility] Allergies Active Allergy Reactions Criticality Noted Date [...] Comments Blood Pressure 103/76 05/31/2023 10:50 AM PLASTIC SURGERY MANAGER Pulse 109 05/31/2023 10:50 AM PLASTIC SURGERY MANAGER Temperature 36.7 ??C (98.1 ??F) 05/31/2023 10:[address] Respiratory Rate 14 11/18/2015 10:51 AM CDT Oxygen Saturation 89% 05/31/2023 10:50 AM PLASTIC SURGERY MANAGER Inhaled Oxygen Concentration - - Weight 58.1 kg (128 lb) 05/31/2023 10:50 AM PLASTIC SURGERY MANAGER Height 165.1 cm (5' 5 ) 05/31/2023 10:50 AM PLASTIC SURGERY MANAGER Body Mass Index 21.3 05/31/2023 10:50 AM PLASTIC SURGERY MANAGER Plan of Treatment Health Maintenance Due Date [...] age to complete this topic Care Teams Bisque Kiln Drawer Relationship Specialty Start Date End Date Jarod Hernandez MD [address] [place] [address] PCP - General 07/25/15
--- OUTSIDE RECORDS SUMMARY | 2024-05-02 15:02 | XMS_ITS | Clinical Summary ---
Author Organization [facility] Address [address] [place] [address] Care Team Providers Care Security Alarm Installer Name Role Phone Jarod Hernandez MD Primary Care Provider [phone] Allergies Active Allergy Reactions Criticality Noted Date [...] Department Care Team Description 04/26/2024 9:45 AM BIOPHYSICS SCIENTIST Office Visit [facility] Oncology and Hematology [address] [place] [address] Zaki Leon MD Acute deep vein thrombosis (DVT) of distal vein of left lower extremity (CMS/HCC); Hereditary hemochromatosis; Erythrocytosis 04/26/2024 External Device Data STL ABSTRACTION Provider, Abstract 04/25/2024 External Device Data STL ABSTRACTION Provider, Abstract 04/25/2024 Telephone [facility] Oncology and Hematology [address] [place] [address] Zaki Leon MD Diarrhea 04/24/2024 External Device Data STL ABSTRACTION Provider, Abstract 04/17/2024 External Device Data STL ABSTRACTION Provider, Abstract 03/21/2024 Telephone [facility] Oncology and Hematology - [address] [place] [address] Zaki Leon MD Lethargy 03/20/2024 Orders Only [facility] Oncology and Hematology - [address] [place] [address] Zaki Leon MD 02/13/2024 Orders Only [facility] Oncology and Hematology - [address] [place] [address] Zaki Leon MD 02/10/2024 Orders Only [facility] Oncology and Hematology - [address] [place] [address] Zaki Leon MD 2024 External Device Data [...] Comments Blood Pressure 87/54 04/26/2024 9:57 AM BIOPHYSICS SCIENTIST Pulse 55 04/26/2024 9:57 AM BIOPHYSICS SCIENTIST Temperature 36.4 ??C (97.5 ??F) 04/26/2024 9:57 AM CS T Respiratory Rate 20 04/26/2024 9:57 AM BIOPHYSICS SCIENTIST Oxygen Saturation 92% 04/26/2024 9:57 AM BIOPHYSICS SCIENTIST Inhaled Oxygen Concentration - - Weight 57.2 kg (126 lb) 04/26/2024 9:57 AM BIOPHYSICS SCIENTIST Height 165.1 cm (5' 5 ) 11/15/2023 2:07 PM CDT Body Mass Index 20.97 11/15/2023 2:07 PM CDT Plan of Treatment Upcoming Encounters Date Type Department Care Team (Late st Contact Info) Description 05/09/2024 4:30 PM BIOPHYSICS SCIENTIST Telephone Check Up [facility] Oncology and Hematology - [address] [facility] [address] [place] [address] Zaki Leon MD [address] [facility] [address] [place] [address] Health Maintenance Due Date Last [...] Comments IRON LEVEL Routine 03/19/2024 1:20 PM BIOPHYSICS SCIENTIST COMPREHENSIVE METABOLIC PANEL Routine 03/19/2024 1:19 PM BIOPHYSICS SCIENTIST US VENOUS DOPPLER LEG LEFT Routine 03/19/2024 11:21 AM BIOPHYSICS SCIENTIST CBC WITH DIFFERENTIAL Routine 02/10/2024 2:03 PM BIOPHYSICS SCIENTIST IRON LEVEL Routine 02/10/2024 12:38 PM BIOPHYSICS SCIENTIST IRON LEVEL Routine 02/10/2024 12:07 PM BIOPHYSICS SCIENTIST from Last 3 Months Results * IRON LEVEL (03/19/2024 1:20 PM BIOPHYSICS SCIENTIST) Only the most recent of3 resultswithin the time period is included. Blood us Zaki Leon MD CHEMISTRY ORDERABLES Final Resu lt * COMPREHENSIVE METABOLIC PANEL (03/19/2024 1:19 PM BIOPHYSICS SCIENTIST) Blood us Zaki Leon MD CHEMISTRY ORDERABLES Final Resu lt * US VENOUS DOPPLER LEG LEFT (03/19/2024 11:21 AM BIOPHYSICS SCIENTIST) Anatomical Region Laterality Modality Lower Extremity Other us Zaki Leon MD US ORDERABLES Final Result * CBC WITH DIFFERENTIAL (02/10/2024 2:03 PM BIOPHYSICS SCIENTIST) Blood us Zaki Leon MD HEMATOLOGY ORDERABLES Final Res ult from Last 3 Months Insurance Care Teams Security Alarm Installer Relationship Specialty Start Date End Date Jarod Hernandez MD [address] [place] [id number] PCP - General Family Practice 01/18/19
--- NOTE | 2024-05-02 15:45 | PC.NURSE ---
PT IS UPSET UPON DC. PT WANTED TO BE ADMITTED. ERP IS AWARE. SON VERBALIZED UNDERSTANDING OF DC AND FOLLOW UP INSTRUCTIONS.
== END 2024-05-02 15:25 | disposition home or self-care (01) ==
PROVIDERS: Emergency Provider Internal Medicine Critical Care Medicine; PCP Family Medicine
DX: J10.1 Influenza due to other identified influenza virus with other respiratory manifestations (principal); J44.1 Chronic obstructive pulmonary disease with (acute) exacerbation; I11.0 Hypertensive heart disease with heart failure; I50.33 Acute on chronic diastolic (congestive) heart failure; M79.10 Myalgia, unspecified site; Z86.718 Personal history of other venous thrombosis and embolism; Z79.01 Long term (current) use of anticoagulants; F17.210 Nicotine dependence, cigarettes, uncomplicated; Z20.822 Contact with and (suspected) exposure to COVID-19; Z79.51 Long term (current) use of inhaled steroids
CPT/HCPCS: 36415; 71045; 80053; 83605; 83690; 83880; 84484; 85025; 87637; 93005; 94640; 99284

== ENCOUNTER 2024-05-10 10:43 | Outpatient (CLI) | payer OTHER, SELFPAY ==
--- OUTSIDE RECORDS SUMMARY | 2024-05-10 11:00 | XMS_ITS | Clinical Summary ---
Author Organization [facility] Address [address] [place] [address] Care Team Providers Care Broiler Manager Name Role Phone Jarod Hernandez MD Primary Care Provider [phone] Raymon Conway MD Unavailable [phone] Mari Guajardo PA-C Unavailable [phone] [...] Date Diagnosed Date Atrial fibrillation with RVR ([facility]) 0 06/03/2023 Pneumonia 06/02/2023 Social History [...] materials from doctor or pharmacy Never 07/19/2023 [facility] Utilities Answer Date Recorded In the past 12 months has e [employer], gas, oil, or water [employer] threatened to shut off services in your [...] 80 08/10/2023 10:01 AM CDT Temperature 36.4 C (97.6 F) 07/19/2023 9:57 AM CDT Respiratory Rate 20 08/10/2023 10:01 AM CDT [...] Description 08/15/2024 9:30 AM CDT Office Visit [facility] [place] [phone] Mari Guajardo PA-C [address] [place] [address] Health Maintenance Due Date Last [...] understanding of home safety measures Lifestyle Noemi Machado, RN Safety Patient/family will have appropriate support at home upon discharge Lifestyle Noemi Machado RN Insurance [place] [id number] MEDICARE PART A [email or web address] OPEN ACCESS [facility] Advance Directives * Full Code (Latest Code Status on File) Date Activated Date Inactivated Comments 07/07/2023 7:48 AM * Full Code Date Activated Date Inactivated Comments 06/07/2023 7:45 AM 06/23/2023 7:20 PM Care Teams Broiler Manager Relationship Specialty Start Date End Date Jarod Hernandez MD [address] [place] [address] PCP - General FAMILY PRACTICE 06/03/23 Raymon Conway MD [address] [place] [address] Consulting Physician CLINICAL CARDIAC ELECTROPHYSIOLOGY 08/09/23 Mari Guajardo PA-C [address] [place] [address] Referring Physician PHYSICIAN AUTOMOTIVE PROJECT ENGINEER 02/13/24
--- OUTSIDE RECORDS SUMMARY | 2024-05-10 11:00 | XMS_ITS | Encounter Summary ---
Author Organization [facility] Address [facility] [place] [address] Care Team Providers Care Jacquard Loom Weaver Name Role Phone Jarod Hernandez MD Primary Care Provider [phone] Raymon Conway MD Unavailable [phone] Mari Guajardo PA-C Unavailable [phone] Encounter Details Date Type Department Care Team (Late st Contact Info) Description 06/27/2023 Hospital Follow-up Call [facility] Cardiovascular Care Unit [address] [place] [address] Cassandra Medina, RN Social History Tobacco Use Types Packs/Day [...] materials from doctor or pharmacy Rarely 07/01/2023 C Utilities Answer Date Recorded In the past 12 months has th e [employer], gas, oil, or water company threatened to [...] place to sleep or slept in a mcfp (including now)? No 06/05/2023 Comments Unknown Sex and Gender Information Value Date Recorded Sex Assigned at Not on file Legal Sex Female 1:23 AM CDT Gender Identity Not on file Sexual Orientation Not on file documented as of this encounter Functional Status * Are you deaf or do you have serious difficulty hearing Answer Date of Assessment Author Status No 06/02/2023 9:30 PM SYSTEMS DEVELOPMENT CONSULTANT Anita Chang R N Active * Are you blind or do you have serious difficulty seeing, even when wearing glasses? Answer Date of Assessment Author Status No 06/02/2023 9:30 PM SYSTEMS DEVELOPMENT CONSULTANT Anita Chang R N Active * Do you have serious difficulty walking or climbing stairs? Answer Date of Assessment Author Status Yes 06/02/2023 9:30 PM SYSTEMS DEVELOPMENT CONSULTANT Anita Chang R N Active * Do you have difficulty dressing or bathing? Answer Date of Assessment Author Status Yes 06/02/2023 9:30 PM SYSTEMS DEVELOPMENT CONSULTANT Anita Chang R N Active * Because of a physical, mental, or emotional condition, do you have difficulty doing errands alone such as visiting a doctor's office or shopping? Answer Date of Assessment Author Status Yes 06/02/2023 9:30 PM SYSTEMS DEVELOPMENT CONSULTANT Anita Chang R N Active documented as of this encounter Mental Status * Because of a physical, mental, or emotional condition, do you have serious difficulty concentrating, remembering, or making decisions? Answer Entry Date Author Status No 06/02/2023 9:30 PM SYSTEMS DEVELOPMENT CONSULTANT Anita Chang R N Active documented in this encounter Plan of Treatment Upcoming Encounters Date Type Department Care Team (Late st Contact Info) Description 08/15/2024 9:30 AM CDT Office Visit [facility] [place] [address] Mari Guajardo PA-C [address] [place], [place] [address] documented as of this encounter Goals Goal Patient Goal Type Associated Problems Recent Progress Patient-Stated? Author Safety - demonstrates understanding of home safety measures Lifestyle Noemi Machaod RN Safety Patient/family will have appropriate support at home upon discharge Lifestyle Noemi Machado RN documented as of this encounter Visit Diagnoses Not on filedocumented in this encounter Care Teams Jacquard Loom Weaver Relationship Specialty Start Date End Date Jarod Hernandez MD [address] [place] [address] PCP - General FAMILY PRACTICE 06/03/23 Raymon Conway MD [address] [place] [address] Consulting Physician CLINICAL CARDIAC ELECTROPHYSIOLOGY 08/09/23 Mari Guajardo PA-C [address] [place] [address] Referring Physician PHYSICIAN SHIPPING ROOM HELPER 02/13/24 documented as of this encounter
--- OUTSIDE RECORDS SUMMARY | 2024-05-10 11:01 | XMS_ITS | Clinical Summary ---
Author Organization [facility] Administrative Offices Address [address] [place] [address] Care Team Providers Care Lgsw Name Role Phone Jarod Hernandez MD Primary Care Provider Allergies Active Allergy Reactions Criticality Noted Date [...] Encounters Date Type Department Care Team Description 05/07/2024 Abstract [facility] Oncology and Hematology - [address] [place] [address] Zaki Leon MD 05/04/2024 Telephone [facility] Oncology and Hematology [address] [place] [address] Zaki Leon MD Phlebotomy orders 04/26/2024 9:45 AM FARM FACILITY MANAGER Office Visit [facility] Oncology and Hematology [address] [place] [address] Zaki Leon MD Acute deep vein thrombosis (DVT) of distal vein of left lower extremity (CMS/HCC); Hereditary hemochromatosis; Erythrocytosis 04/26/2024 External Device Data STL ABSTRACTION Provider, Abstract 04/25/2024 External Device Data STL ABSTRACTION Provider, Abstract 04/25/2024 Telephone [facility] Oncology and Hematology - [address] [place] [address] Zaki Leon MD Diarrhea 04/24/2024 External Device Data STL ABSTRACTION Provider, Abstract 04/17/2024 External Device Data STL ABSTRACTION Provider, Abstract 03/21/2024 Telephone [facility] Oncology and Hematology - [address] [place] [address] Zaki Leon MD Lethargy 03/20/2024 Orders Only [facility] Oncology and Hematology - [address] [place] [address] Zaki Leon MD 02/13/2024 Orders Only [facility] Oncology and Hematology - [address] [place] [address] Zaki Leon MD 02/10/2024 Orders Only [facility] Oncology and Hematology - [address] [place] [address] Zaki Leon MD from Last 3 Months Family History Medical [...] Comments Blood Pressure 87/54 04/26/2024 9:57 AM FARM FACILITY MANAGER Pulse 55 04/26/2024 9:57 AM FARM FACILITY MANAGER Temperature 36.4 C (97.5 F) 04/26/2024 9:57 AM FARM FACILITY MANAGER Respiratory Rate 20 04/26/2024 9:57 AM FARM FACILITY MANAGER Oxygen Saturation 92% 04/26/2024 9:57 AM FARM FACILITY MANAGER Inhaled Oxygen Concentration - - Weight 57.2 kg (126 lb) 04/26/2024 9:57 AM FARM FACILITY MANAGER Height 165.1 cm (5' 5 ) 11/15/2023 2:07 PM CDT Body Mass Index 20.97 11/15/2023 2:07 PM CDT Plan of Treatment Upcoming Encounters Date Type Department Care Team (Late st Contact Info) Description 05/22/2024 4:30 PM FARM FACILITY MANAGER Telephone Check Up [facility] Oncology and Hematology [facility] [address] [facility] [address] [place] [address] Zaki Leon MD [address] [facility] [address] [place] [address] Health Maintenance Due Date Last [...] Comments IRON LEVEL Routine 03/19/2024 1:20 PM FARM FACILITY MANAGER COMPREHENSIVE METABOLIC PANEL Routine 03/19/2024 1:19 PM FARM FACILITY MANAGER US VENOUS DOPPLER LEG LEFT Routine 03/19/2024 11:21 AM FARM FACILITY MANAGER CBC WITH DIFFERENTIAL Routine 02/10/2024 2:03 PM FARM FACILITY MANAGER IRON LEVEL Routine 02/10/2024 12:38 PM FARM FACILITY MANAGER IRON LEVEL Routine 02/10/2024 12:07 PM FARM FACILITY MANAGER from Last 3 Months Results * IRON LEVEL (03/19/2024 1:20 PM FARM FACILITY MANAGER) Only the most recent of3 resultswithin the time period is included. Blood us Zaki Leon MD CHEMISTRY ORDERABLES Final Resu lt * COMPREHENSIVE METABOLIC PANEL (03/19/2024 1:19 PM FARM FACILITY MANAGER) Blood us Zaki Leon MD CHEMISTRY ORDERABLES Final Resu lt * US VENOUS DOPPLER LEG LEFT (03/19/2024 11:21 AM FARM FACILITY MANAGER) Anatomical Region Laterality Modality Lower Extremity Other us Zaki Leon MD US ORDERABLES Final Result * CBC WITH DIFFERENTIAL (02/10/2024 2:03 PM FARM FACILITY MANAGER) Blood us Zaki Leon MD HEMATOLOGY ORDERABLES Final Res ult from Last 3 Months Insurance [facility] OPEN ACCESS [employer] OPEN ACCESS Care Teams Lgsw Relationship Specialty Start Date End Date Jarod Hernandez MD [address] [place] [address] PCP - General Family Practice 01/18/19
--- OUTSIDE RECORDS SUMMARY | 2024-05-10 11:01 | XMS_ITS | Clinical Summary ---
Author Organization [facility] [employer] Address [address] [facility] [place] [address] Care Team Providers Care Family Medicine Resident Name Role Phone Jarod Hernandez MD Primary Care Provider [phone] Source Comments [facility],non-owned Affiliates and Associated Physician Practices is amultiple site organization consisting of ambulatory clinics and hospital sitesin [place], [place], [place] and [place]. This disclosure is being madepursuant to the Care Everywhere program and may not contain all information available regarding this patient. Last updated 17.[facility] Allergies Active Allergy Reactions Criticality Noted Date [...] Comments Blood Pressure 103/76 05/31/2023 10:50 AM SOURCING ASSISTANT Pulse 109 05/31/2023 10:50 AM SOURCING ASSISTANT Temperature 36.7 C (98.1 F) 05/31/2023 10:50 AM SOURCING ASSISTANT Respiratory Rate 14 11/18/2015 10:51 AM CDT Oxygen Saturation 89% 05/31/2023 10:50 AM SOURCING ASSISTANT Inhaled Oxygen Concentration - - Weight 58.1 kg (128 lb) 05/31/2023 10:50 AM SOURCING ASSISTANT Height 165.1 cm (5' 5 ) 05/31/2023 10:50 AM SOURCING ASSISTANT Body Mass Index 21.3 05/31/2023 10:50 AM SOURCING ASSISTANT Plan of Treatment Health Maintenance Due Date [...] on patient's age to complete this topic Insurance Payer Benefit Plan / Group Subscriber ID Effective Dates Phone Address Type [employer] [facility] [id number] Effective for all dates [address] [place] [address] HMO SELF PAY NO INSURANCE SELF PAY NO INSURANCE Effective for all dates [place], [place] Self Pay [employer] [facility] OA [id number] 2009-Pre sent [address] [place] [address] HMO Care Teams Family Medicine Resident Relationship Specialty Start Date End Date Jarod Hernandez MD [address] [place] [address] PCP - General 07/25/15
--- OUTSIDE RECORDS SUMMARY | 2024-05-10 11:01 | XMS_ITS | Patient Health Summary ---
Author Organization [facility] [employer] Address [address] [place] [address] Care Team Providers Care Contract Lead Name Role Phone Jarod Hernandez MD Primary Care Provider [phone] [facility],non-owned Affiliates and Associated Physician Practices is amultiple site organization consisting of ambulatory clinics and hospital sitesin [place], [place], [place] and [place]. This disclosure is being madepursuant to the Care Everywhere program and may not contain all information available regarding this patient. Last updated 17.[facility] [employer] Allergies * Povidone Iodine(Swelling) -Low Criticality Medications [...] (one) tablet by mouth once daily * vwunlyuwrsg-drmrgdenc-tbwosd (Trelegy Ellipta) 200-62.5-25 MCG/ACT inhaler Inhale 1 [...] dri nk = 0.6 oz pure alcohol) Moz shooters 3/day, previous 10-15 daily Sex and Gender Information Value Date Recorded Sex Assigned at Not on file Gender Identity Not on file Sexual Orientation Not on file Last Filed Vital Signs Vital Sign Reading Time Taken Comments Blood Pressure 103/76 05/31/2023 10:50 AM WOOD BOAT BUILDER SUPERVISOR Pulse 109 05/31/2023 10:50 AM WOOD BOAT BUILDER SUPERVISOR Temperature 36.7 C (98.1 F) 05/31/2023 10:50 AM WOOD BOAT BUILDER SUPERVISOR Respiratory Rate 14 11/18/2015 10:51 AM CDT Oxygen Saturation 89% 05/31/2023 10:50 AM WOOD BOAT BUILDER SUPERVISOR Inhaled Oxygen Concentration - - Weight 58.1 kg (128 lb) 05/31/2023 10:50 AM WOOD BOAT BUILDER SUPERVISOR Height 165.1 cm (5' 5 ) 05/31/2023 10:50 AM WOOD BOAT BUILDER SUPERVISOR Body Mass Index 21.3 05/31/2023 10:50 AM WOOD BOAT BUILDER SUPERVISOR Procedures * UT LIVER ELASTOGRAPHY(Performed 05/31/2023) Performed for Fatty liver * IMAGING/RADIOLOGY/XRAY RESULTS ORDER(Performed 02/27/2019) * CT TEMPORAL BONES WO CONTRAST(Performed 01/27/2018) Performed for ETD (Eustachian tube dysfunction), left * UT REMOVE CERUMEN IMPACTED W INSTR LEFT EAR(Performed 08/12/2017) Performed for Hearing loss of left ear, unspecified hearing loss type, Impacted cerumen of left ear, Chronic rhinitis * PROC CERUMEN REMOVAL(Performed 07/18/2017) Performed for Sialolithiasis, Chronic sialoadenitis, Hearing loss of left ear, unspecified hearing loss type, Nasal congestion, Impacted cerumen of left ear * PATHOLOGY TISSUE(Performed 10/27/2015) Results * UT LIVER ELASTOGRAPHY (05/31/2023 10:38 AM WOOD BOAT BUILDER SUPERVISOR) Narrative Jered Chilel MD - 05/31/2023 10:38 AM WOOD BOAT BUILDER SUPERVISOR Jered Chilel MD 05/31/2023 5:38 PM Diagnosis: Fatty liver RN verified patient NPO for prior 3 hours. Procedure explained. Date of Exam: 05/31/2023 Liver Stiffness: (LSM, kPa) median: 21.5 IQR/Median% (ideally < 30%): 8% CAP (controlled attenuation parameter): 332 Technical Difficulty: Difficulty positioning Ordering Provider: Dr. [...] patients with nonalcoholic fatty liver disease. Gastroenterology 2019;156:1241-1855. Gladys MS, Rex R, Van Natta ML, et al. Vibration-controlled transient elastography to assess fibrosis and steatosis in patients with nonalcoholic fatty liver disease. Clin Gastroenterol Hepatol 2019;17:156-163. Note that scores have been developed that incorporate the Fibroscan liver stiffness measurement from large cohorts of patients with liver biopsies to further refine the ability of Fibroscan to identify patients with MASH and advanced fibrosis. These include the FAST (Fibroscan-AST) score (Tang, 202) and the Agile3+ and Agile4 scores (Walker, 202). Tang TA, Van Natta ML, Torsten M, Anthony A, et al. Validation of the accuracy of the FAST score for detecting patients with at-risk nonalcoholic steatohepatitis (DAVIS) in a [place] cohort and comparison to other non-invasive algorithms. PLoS ONE (2021) 17: f0834791. Walker AJ, Tejal J, Chay ZM, et al. Enhanced diagnosis of advanced fibrosis and cirrhosis in individuals with NAFLD using FibroScan-based Agile scores. J Hepatol (2022) 78: 247-259. Fibroscan LSM can also be used with laboratory parameters without formulas to assess prognosis. According to the Baveno-VII criteria (Child, 202), Fibroscan LSM ?15 kPa plus a platelet count of ?814s565/L rules out clinically significant portal hypertension (sensitivity and negative predictive value >90%) in patients with compensated advanced chronic liver disease. Child R, Renan J, Jignesh-Ramu G, ReiberKourtney Warner on behalf of the [facility] Faculty. [facility]--Renewing consensus in portal hypertension. J Hepatol (2021) 76: 959-974 Assessing the likelihood of advanced fibrosis in patients with intermediate liver stiffness measurement (LSM) by Fibroscan (e.g., 8-15 kPa) can be improved by also calculating the FIB-4 score (Efe et al. Hepatology Communications 2019;3:4052-1204) or NAFLD Fibrosis score (Harris et al. Clinical Gastroenterology and Hepatology 2019;17:4696-1248 using routine clinical data. Note: 1. Fibroscan cannot reliably identify earlier stages of fibrosis (ie distinguish F0 from F1 and F2) and thus a histologic stage cannot be predicted from the Fibroscan reading. 2. Liver stiffness can be increased by factors other than fibrosis including passive congestion, infiltrative processes, active alcoholism, recent moderate alcohol consumption in the 2 weeks before the exam, biliary obstruction and marked inflammation. The interpretation of [...] additional interpretive data was last updated 08/07/22.) [email or web address] Duane Rogers MD PROCEDURE/MINOR SURG ICAL ORDERABLES * IMAGING RADIOLOGY XRAY RESULTS ORDER (02/27/2019 10:47 AM WOOD BOAT BUILDER SUPERVISOR) Anatomical Region Laterality Modality Other Narrative 02/27/2019 10:47 AM WOOD BOAT BUILDER SUPERVISOR Ordered by an unspecified provider. Scanned Document [...] temporal bone. Dictated by Kai Lowery M.D. (residential energy auditor) I, Dr. MARIVEL VENTURA have personally reviewed and interpreted this examination/study. This report was electronically signed by MARIVEL VENTURA on 01/27/2018 4:26 PM . Narrative 01/27/2018 4:26 [...] temporal bone. Dictated by Kai Lowery M.D. (residential energy auditor) I, Dr. MARIVEL VENTURA have personally reviewed and interpreted this examination/study. This report was electronically signed by MARIVEL VENTURA on 01/27/20184:26 PM . Rocky Berumen MD CT ORDERABLES * UT REMOVE CERUMEN IMPACTED W INSTR LEFT EAR (08/12/2017 5:51 PM CDT) Rocky Vidal MD - 08/12/2017 5:51 PM CDT Rocky Radford MD 08/12/2017 5:51 PM Procedure Note: Cerumen/Debris Removal Procedure Details: Informed consent was obtained. The patient was placed in the supine position. The operative microscope used to visualize both ear canals. Large amounts of debris were removed with currette and suction. A retracted tympanicmembrane was then appreciated. The patient tolerated the procedure without complication. The following findings were noted: Improved but still significant debris. Severe retraction with large retraction pocket posteriorly. Boric acid powder placed. The patient tolerated procedure well. Complications: None Rocky Radford MD PROCEDURE/MINOR S URGICAL ORDERABLES * PROC CERUMEN REMOVAL (07/18/2017 11:20 AM CDT) Rocky Vidal MD - 07/18/2017 11:20 AM CDT Rocky Radford MD 07/18/2017 11:20 AM Procedure Note: Cerumen Removal, left Procedure Details: Informed consent was obtained. The patient was placed in the supine position. The operative microscope used to visualize the left ear canal. Large amounts of cerumen/debris were removed with currette and suction to the level of patient tolerance. The patient tolerated the procedure without complication. The following findings were noted: Copious firm yellow/brown debris with associated inflammation. Against TM. The patient tolerated procedure well. Complications: None Rocky Radford MD PROCEDURE/MINOR S URGICAL ORDERABLES * PATHOLOGY TISSUE (10/27/2015 10:07 AM CDT) Surgical Pathology Tissue ACCESSION No: [id number] CLINICAL HISTORY: There is no clinical history provided on the requisition. FINAL DIAGNOSIS: RIGHT PAROTID DUCT STONE: - STONE GROSS DESCRIPTION: The specimen is received fresh in one container for gross examination only, labeled with the patient's name, Stefanie Raymundo and right parotid duct stone for gross , and consists of one firm, pink-red stone measuring 0.6 cm in greatest dimension. No sections are taken. This is a gross only specimen. CM/edk MICROSCOPIC DESCRIPTION: None. ES/CM/edk The performance characteristics of all immunohistochemical and indirect immunofluorescence stains (if any) cited in this report were determined by the [facility] of [facility]. Some of these tests were developed by our own laboratory and have not been cleared or approved by the US Food and Drug Administration. The FDA does not require this test to go through premarket FDA review. These tests are used for clinical purposes. They should not be regarded as investigational or for research. This laboratory is certified under the Clinical Laboratory Improvement Amendments (CLIA) as qualified to perform high complexity clinical laboratory testing. This case has been personally reviewed and interpreted by the attending (teaching) pathologist. Final Diagnosis performed by Carlo Rivas MD. Electronically signed 10/28/2015 [facility] Other (qualifier value) 10/27/2015 10:07 AM CDT 10/27/2015 12:02 PM CDT Narrative [facility] - 10/28/2015 4:32 PM CDT Collection Date->10/27/15 Collection Time->10:07 AM Specimen A->Other 1. Right parotid duct stone gross only Rocky Radford MD LAB - PATHOLOGY/C YTOLOGY ORDERABLES [facility] Care Teams Contract Lead Relationship Specialty Start Date End Date Jarod Hernandez MD [address] [place] [address] [facility] - General 07/25/15
--- OUTSIDE RECORDS SUMMARY | 2024-05-10 11:01 | XMS_ITS | Referral Summary ---
Author Organization [facility] [employer] Address [address] [place] [address] Care Team Providers Care Office Machine Punch Operator Name Role Phone Jarod Hernandez MD Primary Care Provider [phone] Source Comments [facility],non-owned Affiliates and Associated Physician Practices is amultiple site organization consisting of ambulatory clinics and hospital sitesin [place], [place], [place] and [place]. This disclosure is being madepursuant to the Care Everywhere program and may not contain all information available regarding this patient. Last updated 17.[facility] Allergies Active Allergy Reactions Criticality Noted Date [...] Comments Blood Pressure 103/76 05/31/2023 10:50 AM INSULATION HELPER Pulse 109 05/31/2023 10:50 AM INSULATION HELPER Temperature 36.7 C (98.1 F) 05/31/2023 10:50 AM INSULATION HELPER Respiratory Rate 14 11/18/2015 10:51 AM CDT Oxygen Saturation 89% 05/31/2023 10:50 AM INSULATION HELPER Inhaled Oxygen Concentration - - Weight 58.1 kg (128 lb) 05/31/2023 10:50 AM INSULATION HELPER Height 165.1 cm (5' 5 ) 05/31/2023 10:50 AM INSULATION HELPER Body Mass Index 21.3 05/31/2023 10:50 AM INSULATION HELPER Plan of Treatment Not on file Care Teams Office Machine Punch Operator Relationship Specialty Start Date End Date Jarod Hernandez MD [address] [place] [id number] PCP - General 07/25/15
--- NOTE | 2024-05-29 10:33 | WPDHOLTEREM ---
Holter/Event Monitor Holter/Event Monitor Date of procedure: 05/09/24 Holter/Event Procedure: Event Monitor Indications: Palpitations Conclusion: 1. 13 days event monitor on 05/09/24. 2. Predominant rhythm is sinus rhythm. HR range 70-226 bpm; average 99 bpm. 3. There are frequent premature supraventricular complexes, occasional supraventricular couplets and rare supraventricular triplets. There are 670 episodes of supraventricular tachycardia, fastest at 226 bpm and longest lasting 9 seconds. 4. There are rare premature ventricular complexes and rare ventricular couplets. No ventricular tachycardia. 5. No significant pauses greater than 3 seconds. 6. No symptoms available for correlation.
== END 2024-05-10 10:44 | disposition home or self-care (01) ==
LOC: CHSCARD 10:45
PROVIDERS: PCP Family Medicine; Visit Provider Family Medicine
DX: I48.91 Unspecified atrial fibrillation (principal)
CPT/HCPCS: 93246

== ENCOUNTER 2024-06-25 11:55 | Outpatient (CLI) | payer OTHER, SELFPAY ==
[2024-06-25 13:01] LABS: Anion Gap 9 mmol/L (4-12); Blood Urea Nitrogen 17 mg/dL (7-18); Calcium 10.1 mg/dL (8.5-10.1); Carbon Dioxide 31 mmol/L (21-32); Chloride 99 mmol/L (98-108); Estimated Glomerular Filt Rate > 60; Glucose 73 mg/dL (70-99); Osmolality Calculated 288 mOsm/kg (285-295); Potassium 4.6 mmol/L (3.5-5.1); Sodium 139 mmol/L (136-145)
--- OUTSIDE RECORDS SUMMARY | 2024-06-25 13:54 | XMS_ITS | Encounter Summary ---
Author Organization [facility] Address [facility] [place] [address] Care Team Providers Care Wood Piler Name Role Phone Jarod Hernandez MD Primary Care Provider [phone] Raymon Conway MD Unavailable [phone] Mari Guajardo PA-C Unavailable [phone] Encounter Details Date Type Department Care Team (Late st Contact Info) Description 06/27/2023 Hospital Follow-up Call [facility] [address] [place] [address] Cassandra Medina, RN Social History [...] the past 12 months has th e [employer], gas, oil, or water company threatened to [...] place to sleep or slept in a fpc (including now)? No 06/05/2023 Comments Unknown Sex and Gender Information Value Date Recorded Sex Assigned at Not on file Legal Sex Female 1:23 AM CDT Gender Identity Not on file Sexual Orientation Not on file documented as of this encounter Functional Status * Are you deaf or do you have serious difficulty hearing Answer Date of Assessment Author Status No 06/02/2023 9:30 PM TANK TRUCK OPERATOR Anita Chang R N Active * Are you blind or do you have serious difficulty seeing, even when wearing glasses? Answer Date of Assessment Author Status No 06/02/2023 9:30 PM TANK TRUCK OPERATOR Anita Chang R N Active * Do you have serious difficulty walking or climbing stairs? Answer Date of Assessment Author Status Yes 06/02/2023 9:30 PM TANK TRUCK OPERATOR Anita Chang R N Active * Do you have difficulty dressing or bathing? Answer Date of Assessment Author Status Yes 06/02/2023 9:30 PM TANK TRUCK OPERATOR Anita Chang R N Active * Because of a physical, mental, or emotional condition, do you have difficulty doing errands alone such as visiting a doctor's office or shopping? Answer Date of Assessment Author Status Yes 06/02/2023 9:30 PM TANK TRUCK OPERATOR Anita Chang R N Active documented as of this encounter Mental Status * Because of a physical, mental, or emotional condition, do you have serious difficulty concentrating, remembering, or making decisions? Answer Entry Date Author Status No 06/02/2023 9:30 PM TANK TRUCK OPERATOR Anita Chang R N Active documented in this encounter Plan of Treatment Upcoming Encounters Date Type Department Care Team (Late st Contact Info) Description 08/15/2024 9:30 AM CDT Office Visit [facility] [place] [address] Mari Guajardo PA-C [address] [place], [place] [phone] documented as of this encounter Goals Goal Patient Goal Type Associated Problems Recent Progress Patient-Stated? Author Safety - demonstrates understanding of home safety measures Lifestyle Noemi Machado RN Safety Patient/family will have appropriate support at home upon discharge Lifestyle Noemi Machado RN documented as of this encounter Visit Diagnoses Not on filedocumented in this encounter Care Teams Wood Piler Relationship Specialty Start Date End Date Jarod Hernandez MD [address] [place] [address] PCP - General FAMILY PRACTICE 06/03/23 Raymon Conway MD [address] [place] [address] Consulting Physician CLINICAL CARDIAC ELECTROPHYSIOLOGY 08/09/23 Mari Guajardo PA-C [address] [place] [address] Referring Physician PHYSICIAN ALLIGATOR HUNTER 02/13/24 documented as of this encounter
--- OUTSIDE RECORDS SUMMARY | 2024-06-25 13:54 | XMS_ITS | Clinical Summary ---
Author Organization [facility] Address [address] [place] [address] Care Team Providers Care Director Of Clinical Services Name Role Phone Jarod Hernandez MD Primary Care Provider [phone] Raymon Conway MD Unavailable [phone] Mari Guajardo PA-C Unavailable [phone] Allergies Active Allergy Reactions Criticality Noted [...] Date Diagnosed Date Atrial fibrillation with RVR ([facility]) 0 06/03/2023 Pneumonia 06/02/2023 Social History Tobacco [...] materials from doctor or pharmacy Never 07/19/2023 [facility] Utilities Answer Date Recorded In the past 12 months has e [employer], gas, oil, or water [employer] threatened to shut off services in your [...] place to sleep or slept in a long-term (including now)? No 06/05/2023 Comments Unknown Sex [...] Description 08/15/2024 9:30 AM CDT Office Visit [facility] [place] [phone] Mari Guajardo PA-C [address] [place] [address] Health Maintenance Due Date Last Done Comments Colorectal Cancer Screening Colonoscopy (10 Years) 1951 Hepatitis C 1969 Mammogram Screening 1991 Lung Cancer Screening 2001 Zoster Vaccines (1 of 2) 2001 Dexa Scan (General) 02/02/2016 DTaP, Tdap and Td Vaccines (2 - Td or Tdap) 03/02/2022 03/02/2012 COVID-19 Vaccine (3 - season) 2023 11/14/2020, 10/22/2020 Influenza Adult (#1) 2024 02/09/2022, 01/23/2021, 01/21/2020, Additional history exists RSV Immunization or 60+ Years (1 - 1-dose 75+ series) 2026 Pneumococcal Vaccine: 65+ Years Completed 12/15/2022, 03/22/2016, [...] Lifestyle Noemi Machado RN Insurance [place] [id number] MEDICARE PART A [employer] OPEN ACCESS [facility] Advance Directives * Full Code (Latest Code Status on File) Date Activated Date Inactivated Comments 07/07/2023 7:48 AM * Full Code Date Activated Date Inactivated Comments 06/07/2023 7:45 AM 06/23/2023 7:20 PM Care Teams Director Of Clinical Services Relationship Specialty Start Date End Date Jarod Hernandez MD [address] [place] [address] PCP - General FAMILY PRACTICE 06/03/23 Raymon Conway MD [address] [place] [address] Consulting Physician CLINICAL CARDIAC ELECTROPHYSIOLOGY 08/09/23 Mari Guajardo PA-C [address] [place] [id number] Referring Physician PHYSICIAN ACADEMY EDUCATION DIRECTOR 02/13/24
--- OUTSIDE RECORDS SUMMARY | 2024-06-25 13:54 | XMS_ITS | Clinical Summary ---
Author Organization [facility] Address [address] [place] [phone] Care Team Providers Care Cell Changer Name Role Phone Jarod Hernandez MD Primary Care Provider Allergies Active Allergy Reactions Criticality Noted Date Comments Iodine Rash Low 06/02/2023 Medications metoprolol succinate (TOPROL XL) 12.5 mg Extended [...] Take 1 Tablet by mouth daily. Active folic acid (FOLVITE) 1 mg tablet Take 1 Tablet (1 mg) by mouth daily. 90 Tablet 1 Active Active Problems No known active problems Encounters Date Type Department Care Team Description 06/20/2024 External Device Data STL ABSTRACTION Provider, Abstract 06/11/2024 Orders Only [facility] Oncology and Hematology - Kin [address] [place] [phone] aZki Leon MD 06/09/2024 External Device Data STL ABSTRACTION Provider, Abstract 06/08/2024 External Device Data [facility] ABSTRACTION Provider, Abstract 06/05/2024 External Device Data [facility] ABSTRACTION Provider, Abstract 06/05/2024 Orders Only [facility] Oncology and Hematology - Kin [address] [place] [phone] Zaki Leon MD 05/22/2024 4:30 PM HAND ICER Telephone Check Up [facility] [address] [place] [address] Zaki Leon MD Hereditary hemochromatosis (Primary Dx); Acute deep vein thrombosis (DVT) of distal vein of left lower extremity (CMS/HCC) 05/22/2024 External Device Data STL ABSTRACTION Provider, Abstract 05/07/2024 Abstract [facility] Oncology and Hematology [facility] [address] [place] [address] Zaki Leon MD 05/04/2024 Telephone [facility] H[facility] [address] [place] [address] Zaki Leon MD Phlebotomy orders 04/26/2024 9:45 AM HAND ICER Office Visit [facility] H[facility] [address] [place] [address] Zaki Leon MD Acute deep vein thrombosis (DVT) of distal vein of left lower extremity (CMS/HCC); Hereditary hemochromatosis; Erythrocytosis 04/26/2024 External Device Data STL ABSTRACTION Provider, Abstract 04/25/2024 External Device Data STL ABSTRACTION Provider, Abstract 04/25/2024 Telephone [facility] H[facility] [address] [place] [address] Zaki Leon MD Diarrhea 04/24/2024 External Device [...] Date Smoking Tobacco: Every Day Cigarettes 1 40.6 Started: 11/15/1983 Smokeless Tobacco: Never Tobacco Cessation:Ready [...] Comments Blood Pressure 87/54 04/26/2024 9:57 AM HAND ICER Pulse 55 04/26/2024 9:57 AM HAND ICER Temperature 36.4 C (97.5 F) 04/26/2024 9:57 AM HAND ICER Respiratory Rate 20 04/26/2024 9:57 AM HAND ICER Oxygen Saturation 92% 04/26/2024 9:57 AM HAND ICER Inhaled Oxygen Concentration - - Weight 57.2 kg (126 lb) 04/26/2024 9:57 AM HAND ICER Height 165.1 cm (5' 5 ) 11/15/2023 2:07 PM CDT Body Mass Index 20.97 11/15/2023 2:07 PM CDT Plan of Treatment Upcoming Encounters Date Type Department Care Team (Late st Contact Info) Description 08/29/2024 2:15 PM CDT Office Visit [facility] Oncology and Hematology - Kin [address] [facility] [address] [place] [address] Zaki Leon MD [address] [facility] [address] [place] [address] Health Maintenance Due Date Last Done Comments DTAP/TDAP/TD VACCINES (1 - Tdap) 1970 PNEUMOCOCCAL VACCINE 50+ YEARS (1 of 2 - PCV) 02/01/19 [...] Procedure Name Priority Date/Time Associated Diagnosis Comments HOMOCYSTEINE Routine 06/04/2024 4:04 PM HAND ICER MTHFR Routine 06/04/2024 11:48 AM HAND ICER CBC WITH AUTODIFFERENTIAL Routine 2024 11:18 AM HAND ICER from Last 3 Months Results * HOMOCYSTEINE (06/04/2024 4:04 PM HAND ICER) Blood us Zaki Leon MD CHEMISTRY ORDERABLES Final Resu lt * MTHFR (06/04/2024 11:48 AM HAND ICER) Blood us Zaki Leon MD CHEMISTRY ORDERABLES Final Resu lt * CBC WITH AUTODIFFERENTIAL (06/04/2024 11:18 AM HAND ICER) Blood us Zaki Leon MD HEMATOLOGY ORDERABLES Final Res ult from Last 3 Months Insurance [facility] [place]: [facility] [address] [place] [address] [employer] [facility] [place] Care Teams Cell Changer Relationship Specialty Start Date End Date Jarod Hernandez MD [address] [place] [address] PCP - General Family Practice 01/18/19
--- OUTSIDE RECORDS SUMMARY | 2024-06-25 13:54 | XMS_ITS | Clinical Summary ---
Author Organization [facility] Address [address] [place] [address] Care Team Providers Care Librarian Name Role Phone Jarod Hernandez MD Primary Care Provider [phone] Source Comments [facility]non-owned Affiliates and Associated Physician Practices is amultiple site organization consisting of ambulatory clinics and hospital sitesin [place], [place], [place] and [place]. This disclosure is being madepursuant to the Care Everywhere program and may not contain all information available regarding this patient. Last updated 17.[facility] Allergies Active Allergy Reactions Criticality Noted Date [...] Comments Blood Pressure 103/76 05/31/2023 10:50 AM STATE AUDITOR Pulse 109 05/31/2023 10:50 AM STATE AUDITOR Temperature 36.7 C (98.1 F) 05/31/2023 10:50 AM STATE AUDITOR Respiratory Rate 14 11/18/2015 10:51 AM CDT Oxygen Saturation 89% 05/31/2023 10:50 AM STATE AUDITOR Inhaled Oxygen Concentration - - Weight 58.1 kg (128 lb) 05/31/2023 10:50 AM STATE AUDITOR Height 165.1 cm (5' 5 ) 05/31/2023 10:50 AM STATE AUDITOR Body Mass Index 21.3 05/31/2023 10:50 AM STATE AUDITOR Plan of Treatment Health Maintenance Due Date [...] complete this topic MENINGOCOCCAL (Group B) VACCINE SHARED DECISION-MAKING Aged Out No longer eligible based on patient's age to complete this topic MENINGOCOCCAL GROUPS A/C/Y/W VACCINE Aged Out No longer eligible b ased on patient's age to complete this topic Care Teams Librarian Relationship Specialty Start Date End Date Jarod Hernandez MD [address] [place] [address] PCP - General 07/25/15
== END 2024-06-25 11:56 | disposition home or self-care (01) ==
LOC: CHSLAB 11:57
PROVIDERS: PCP Family Medicine; Visit Provider Family Medicine
DX: E87.6 Hypokalemia (principal)
CPT/HCPCS: 36415; 80048

== ENCOUNTER 2024-07-12 07:42 | Outpatient (CLI) | payer OTHER, SELFPAY ==
--- NOTE | ~2024-07-12 | CT_ITS ---
Clinical Indication: Atypical mycobacterium CT Scan of the Chest with Contrast: Technique: Contiguous sections were acquired throughout the chest after intravenous administration of 75 cc of Omnipaque 350. Dose reduction technique was used on this scan by utilizing automated exposu re control and iterative reconstruction technique. The dose-length product (DLP) was 127.92 mGy-cm. COMPARISON: 02/22/2024 Findings: There is no evidence of any significant mediastinal, hilar or axillary lymphadenopathy. There is no f illing defect in the pulmonary arterial tree to suggest pulmonary embolus. There is no evidence of ao rtic dissection or aneurysm. There is no evidence of pleural or pericardial effusion. Advanced emphysema present in the upper lobes. Stable thick-walled irregular cavitary lesion present in the right upper lobe measuring up to 4.6 x 2.0 cm in transverse dimensions. Images through the upper abdomen reveal no abnormalities. Impression: Stable large thick-walled irregular cavitary lesion in the right upper lobe. Advanced emphysema in the upper lobes. Reviewed, dictated and finalized at [facility]. Impression: Stable large thick-walled irregular cavitary lesion in the right upper lobe. Advanced emphysema in the upper lobes.
--- OUTSIDE RECORDS SUMMARY | 2024-07-12 07:57 | XMS_ITS | Clinical Summary ---
Author Organization [facility] Address [address] [place] [address] Care Team Providers Care Blast Furnace Supervisor Name Role Phone Jarod Hernandez MD Primary Care Provide r Allergies Active Allergy Reactions Criticality Noted Date Comments Iodine Rash Medium 06/02/2023 Mercury Rash Medium 05/18/2023 Povidone-Iodine Swelling Medium 08/29/2015 Medications aspirin 81 mg enteric coated tablet Take 1 tablet (81 mg total) by mouth daily Active POTASSIUM CHLORIDE ORAL Take 20 mEq by mouth 2 (two) times a day Active folic acid (FOLVITE) 1 mg tablet Take 1 tablet (1 mg total) by mouth daily 4 Active cyanocobalamin (Vitamin B-12) 500 mcg tabletIndicatio ns:Prevention of Vitamin B12 Deficiency Take 1 tablet (500 mcg total) by mouth daily Active magnesium oxide (MAG-OX) 400 mg (241.3 mg elemental magnesium) tablet Take 1 tablet (400 mg total) by mouth daily 4 Active albuterol HFA (PROVENTIL HFA,VENTOLIN HFA,PROAIR HFA) 90 mcg/actuation inhaler Inhale 2 puffs every 6 (six) hours as needed 3 Active predniSONE (DELTASONE) 50 mg tablet Take 1 tablet 13 hours prior, 1 tablet 7 hours prior and 1 tablet 1 hour prior 3 tablet 5 Active diphenhydrAMINE (BENADRYL) 50 mg capsule Take 50mg tablet one hour prior to procedure 1 capsule 5 Active Active Problems Problem Noted Date Diagnosed Date Atrial fibrillation with RVR 06/03/2023 Pneumonia 06/02/2023 Alcoholic liver disease 05/31/2023 Alcoholic cirrhosis of liver 05/31/2023 Overview (06/28/2024): 05/31/23 Fibroscan CAP 332, LSM 21.5 kPa Mucopurulent chronic bronchitis 05/31/2023 Severe malnutrition 05/31/2023 Tympanic membrane retraction, left 01/29/2018 Abnormal auditory perception 09/19/2017 Dysfunction of left eustachian tube 09/19/2017 Chronic rhinitis 08/12/2017 Chronic sialoadenitis 08/29/2015 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 Encounters Date Type Department Care Team Description 07/04/2024 Telephone [facility] Pulmonology [facility] [place] [address] Moises Rojas MD 06/28/2024 2:00 PM CDT Office Visit [facility] Infectious Disease [address] [place] [address] Moises Rojas MD Right lower lobe lung mass (Primary Dx); 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 Last 3 Months Surgical History Surgery Date Site/Laterality Comments TUBAL LIGATION PLASTIC SURGERY left side of face Social History Tobacco Use Types Packs/Day Years Used Date Smoking Tobacco: Every Day Cigarettes Tobacco Cessation:Ready to Q uit: Not Asked; Counseling Given: Not Answered Comments Unknown Sex and Gender Information Value Date Recorded Sex Assigned at Not on file 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 Gender Identity Not on file Sexual Orientation Not on file Obstetrics History Last Filed Vital Signs Vital Sign Reading Time Taken Comments Blood Pressure 131/81 06/28/2024 2:06 PM CDT Pulse 81 06/28/2024 2:06 PM CDT Temperature 36.3 C (97.4 F) 06/28/2024 2:06 PM CDT Respiratory Rate 18 06/28/2024 2:06 PM CDT Oxygen Saturation 99% 06/28/2024 2:06 PM CDT Inhaled Oxygen Concentration - - Weight 61.7 kg (136 lb) 06/28/2024 2:06 PM CDT Height 165.1 cm (5' 5 ) 06/28/2024 2:06 PM CDT Body Mass Index 22.63 06/28/2024 2:06 PM CDT Plan of Treatment Health Maintenance Due Date Last Done Comments Breast Cancer Screening-Mammogram 1950 Colon Cancer Screening-Colonoscopy 1950 Depression Screening 1950 Fall Risk Assessment 1950 Hepatitis C Screening 1950 Osteoporosis Screening-Bone Density Scan 1950 Hepatitis B Screening 1969 Zoster Vaccine (1 of 2) 2001 Well Visit 65+ 02/02/2016 DTaP/Tdap/Td Vaccine (2 - Td or Tdap) 03/02/2022 03/02/2012 Covid-19 Vaccine (3 - 2023-2 5 season) 2023 11/14/2020, 10/22/2020 Influenza Vaccine (Season Ended) 2024 12/15/2022, 02/09/2022, 01/23/2021, Additional history exists Pneumococcal vaccine 65+ Completed 023, 03/22/2016, 12/22/2010 Insurance Care Teams Blast Furnace Supervisor Relationship Specialty Start Date End Date Jarod Hernandez MD [address] [place] [address] PCP - General Family Medicine 03/20/24
--- OUTSIDE RECORDS SUMMARY | 2024-07-12 07:57 | XMS_ITS | Referral Summary ---
Author Organization [facility] Address [address] [place] [address] Care Team Providers Care Commercial Portfolio Manager Name Role Phone Jarod Hernandez MD Primary Care Provide r Encounters Date Type Department Care Team Description 07/04/2024 Telephone [facility] Pulmonology [address] [place] [address] [place] [address] Moises Rojas MD 06/28/2024 2:00 PM CDT Office Visit [facility] Infectious Disease [address] [place] [address] [address] [place] [address] Moises Rojas MD Right lower lobe lung mass (Primary Dx); 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 Last 3 Months Allergies Active Allergy Reactions Criticality Noted Date [...] 08/12/2017 Chronic sialoadenitis 08/29/2015 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 Social History Tobacco Use Types Packs/Day Years Used Date Smoking Tobacco: Every Day Cigarettes Tobacco Cessation:Ready to Q uit: Not Asked; Counseling Given: Not Answered Comments Unknown Sex and Gender Information Value Date Recorded Sex Assigned at Not on file 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
--- OUTSIDE RECORDS SUMMARY | 2024-07-12 07:57 | XMS_ITS | Clinical Summary ---
Author Organization [facility] Address [address] [place] [address] Care Team Providers Care Track Worker Name Role Phone Jarod Hernandez MD Primary Care Provider [phone] Allergies Active Allergy Reactions Criticality Noted Date [...] Encounters Date Type Department Care Team Description 07/03/2024 Orders Only [facility] Oncology and Hematology - [address] [place] [phone] Zaki Leon MD Hereditary hemochromatosis (Primary Dx) 06/20/2024 External Device Data STL ABSTRACTION Provider, Abstract 06/11/2024 Orders Only [facility] Oncology and Hematology - Kin [address] [place] [phone] Zaki Leon MD 06/09/2024 External Device Data STL ABSTRACTION Provider, Abstract 06/08/2024 External Device Data STL ABSTRACTION Provider, Abstract 06/05/2024 External Device Data STL ABSTRACTION Provider, Abstract 06/05/2024 Orders Only [facility] Oncology and Hematology [facility] [address] [place] [address] Zaki Leon MD 05/22/2024 4:30 PM INDUSTRIAL ROOF PLUMBER Telephone Check Up [facility] Oncology [facility] [address] [place] [address] Zaki Leon MD Hereditary hemochromatosis (Primary Dx); Acute deep vein thrombosis (DVT) of distal vein of left lower extremity (CMS/HCC) 05/22/2024 External Device Data STL ABSTRACTION Provider, Abstract 05/07/2024 Abstract [facility] Oncology [facility] [address] [place] [address] Zaki Leon MD 05/04/2024 Telephone [facility] Oncology [facility] Hematology [facility] [address] [place] [address] Zaki Leon MD Phlebotomy orders 04/26/2024 9:45 AM INDUSTRIAL ROOF PLUMBER Office Visit [facility] Oncology [facility] [address] [place] [address] Zaki Leon MD Acute deep vein thrombosis (DVT) of distal vein of left lower extremity (CMS/HCC); Hereditary hemochromatosis; Erythrocytosis 04/26/2024 External Device Data STL ABSTRACTION Provider, Abstract 04/25/2024 External Device Data STL ABSTRACTION Provider, Abstract 04/25/2024 Telephone [facility] Oncology [facility] Hematology [facility] [address] [place] [address] Zaki Leon MD Diarrhea 04/24/2024 External Device [...] Date Smoking Tobacco: Every Day Cigarettes 1 40.7 Started: 11/15/1983 Smokeless Tobacco: Never Tobacco Cessation:Ready [...] Comments Blood Pressure 87/54 04/26/2024 9:57 AM INDUSTRIAL ROOF PLUMBER Pulse 55 04/26/2024 9:57 AM INDUSTRIAL ROOF PLUMBER Temperature 36.4 C (97.5 F) 04/26/2024 9:57 AM INDUSTRIAL ROOF PLUMBER Respiratory Rate 20 04/26/2024 9:57 AM INDUSTRIAL ROOF PLUMBER Oxygen Saturation 92% 04/26/2024 9:57 AM INDUSTRIAL ROOF PLUMBER Inhaled Oxygen Concentration - - Weight 57.2 kg (126 lb) 04/26/2024 9:57 AM INDUSTRIAL ROOF PLUMBER Height 165.1 cm (5' 5 ) 11/15/2023 2:07 PM CDT Body Mass Index 20.97 11/15/2023 2:07 PM CDT Plan of Treatment Upcoming Encounters Date Type Department Care Team (Late st Contact Info) Description 08/29/2024 2:15 PM CDT Office Visit [facility] Oncology and Hematology - Kin [address] [facility] [address] [place] [address] Zaki Leon MD [address] [facility] [address] [place] [address] Health Maintenance Due Date Last [...] Date/Time Associated Diagnosis Comments IRON LEVEL Routine 07/03/2024 3:49 PM CDT HOMOCYSTEINE Routine 06/04/2024 4:04 PM INDUSTRIAL ROOF PLUMBER MTHFR Routine 06/04/2024 11:48 AM INDUSTRIAL ROOF PLUMBER CBC WITH AUTODIFFERENTIAL Routine 2024 11:18 AM INDUSTRIAL ROOF PLUMBER from Last 3 Months Results * IRON LEVEL (07/03/2024 3:49 PM CDT) Blood us Zaki Leon MD CHEMISTRY ORDERABLES Final Resu lt * HOMOCYSTEINE (06/04/2024 4:04 PM INDUSTRIAL ROOF PLUMBER) Blood us Zaki Leon MD CHEMISTRY ORDERABLES Final Resu lt * MTHFR (06/04/2024 11:48 AM INDUSTRIAL ROOF PLUMBER) Blood us Zaki Leon MD CHEMISTRY ORDERABLES Final Resu lt * CBC WITH AUTODIFFERENTIAL (06/04/2024 11:18 AM INDUSTRIAL ROOF PLUMBER) Blood us Zaki Leon MD HEMATOLOGY ORDERABLES Final Res ult from Last 3 Months Insurance [email or web address] [facility] OPEN ACCESS [place] [id number] [facility] ACCESS Care Teams Track Worker Relationship Specialty Start Date End Date Jarod Hernandez MD [address] [place] [phone] PCP - General Family Practice 01/18/19
--- OUTSIDE RECORDS SUMMARY | 2024-07-12 07:57 | XMS_ITS | Encounter Summary ---
Author Organization [facility] Address [facility] [place] [address] Care Team Providers Care Director Of Knowledge Management Name Role Phone Jarod Hernandez MD Primary Care Provider [phone] Raymon Conway MD Unavailable [phone] Mari Guajardo PA-C Unavailable [phone] Encounter Details Date Type Department Care Team (Late st Contact Info) Description 06/27/2023 Hospital Follow-up Call [facility] [address] [place] [address] Cassandra Medina, RN Social History [...] the past 12 months has th e [employer], gas, oil, or water company threatened to [...] place to sleep or slept in a halfway (including now)? No 06/05/2023 Comments Unknown Sex and Gender Information Value Date Recorded Sex Assigned at Not on file Legal Sex Female 1:23 AM CDT Gender Identity Not on file Sexual Orientation Not on file documented as of this encounter Functional Status * Are you deaf or do you have serious difficulty hearing Answer Date of Assessment Author Status No 06/02/2023 9:30 PM SOLDERER TORCH Anita Chang R N Active * Are you blind or do you have serious difficulty seeing, even when wearing glasses? Answer Date of Assessment Author Status No 06/02/2023 9:30 PM SOLDERER TORCH Anita Chang R N Active * Do you have serious difficulty walking or climbing stairs? Answer Date of Assessment Author Status Yes 06/02/2023 9:30 PM SOLDERER TORCH Anita Chang R N Active * Do you have difficulty dressing or bathing? Answer Date of Assessment Author Status Yes 06/02/2023 9:30 PM SOLDERER TORCH Anita Chang R N Active * Because of a physical, mental, or emotional condition, do you have difficulty doing errands alone such as visiting a doctor's office or shopping? Answer Date of Assessment Author Status Yes 06/02/2023 9:30 PM SOLDERER TORCH Anita Chang R N Active documented as of this encounter Mental Status * Because of a physical, mental, or emotional condition, do you have serious difficulty concentrating, remembering, or making decisions? Answer Entry Date Author Status No 06/02/2023 9:30 PM SOLDERER TORCH Anita Chang R N Active documented in this encounter Plan of Treatment Upcoming Encounters Date Type Department Care Team (Late st Contact Info) Description 08/15/2024 9:30 AM CDT Office Visit [facility] [place] [address] Mari Guajardo PA-C [address] [place], [place] [phone] documented as of this encounter Goals Goal Patient Goal Type Associated Problems Recent Progress Patient-Stated? Author Safety - demonstrates understanding of home safety measures Lifestyle Noemi Machado RN Safety Patient/family will have appropriate support at home upon discharge Lifestyle Noemi Machado RN documented as of this encounter Visit Diagnoses Not on filedocumented in this encounter Care Teams Director Of Knowledge Management Relationship Specialty Start Date End Date Jarod Hernandez MD [address] [place] [address] PCP - General FAMILY PRACTICE 06/03/23 Raymon Conway MD [address] [place] [address] Consulting Physician CLINICAL CARDIAC ELECTROPHYSIOLOGY 08/09/23 Mari Guajardo PA-C [address] [place] [address] Referring Physician PHYSICIAN MANAGER RELOCATION 02/13/24 documented as of this encounter
--- OUTSIDE RECORDS SUMMARY | 2024-07-12 07:57 | XMS_ITS | Clinical Summary ---
Author Organization [facility] Address [address] [place] [address] Care Team Providers Care Coloring Checker Name Role Phone Jarod Hernandez MD Primary Care Provider Raymon Conway MD Unavailable [phone] Mari Guajardo PA-C Unavailable [phone] [...] Date Diagnosed Date Atrial fibrillation with RVR ([facility]) 0 06/03/2023 Pneumonia 06/02/2023 Social History [...] materials from doctor or pharmacy Never 07/19/2023 [facility] Utilities Answer Date Recorded In the past 12 months has e [employer], gas, oil, or water [employer] threatened to shut off services in your [...] Description 08/15/2024 9:30 AM CDT Office Visit [facility] [place] [phone] Mari Guajardo PA-C [address] [place] [address] Health Maintenance Due Date Last Done Comments Colorectal Cancer Screening Colonoscopy (10 Years) 1950 Hepatitis C 1969 Mammogram Screening 1991 Lung Cancer Screening 2001 Zoster Vaccines (1 of 2) 2001 Dexa Scan (General) 02/02/2016 DTaP, Tdap and Td Vaccines ( 2 - Td or Tdap) 03/02/2022 03/02/2012 COVID-19 Vaccine (3 - 2023-2 5 season) 2023 11/14/2020, 10/22/2020 RSV Immunization or 60+ Years (1 - 1-dose 75+ series) 2026 Pneumococcal Vaccine: 65+ Years Completed 12/15/2022, 03/22/2016, 12/22/2010 Meningococcal B Vaccine Aged Out No l onger eligible based on patient's age to complete this topic Meningococcal Vaccine Aged Out No cheri edison eligible based on patient's age to complete this topic RSV Immunizations Under 20 Months Aged Out No longer eligible b ased on patient's age to complete this topic Goals Goal Patient Goal Type Associated Problems Recent Progress Patient-Stated? Author Safety - demonstrates understanding of home safety measures Lifestyle Noemi Machado, RN Safety Patient/family will have appropriate support at home upon discharge Lifestyle Noemi Machado RN Insurance MEDICARE PART A Networked Organisms OPEN ACCESS [facility] Advance Directives * Full Code (Latest Code Status on File) Date Activated Date Inactivated Comments 07/07/2023 7:48 AM * Full Code Date Activated Date Inactivated Comments 06/07/2023 7:45 AM 06/23/2023 7:20 PM Care Teams Coloring Checker Relationship Specialty Start Date End Date Jarod Hernandez MD [address] [place] [address] PCP - General FAMILY PRACTICE 06/03/23 Raymon Conway MD [address] [place] [address] Consulting Physician CLINICAL CARDIAC ELECTROPHYSIOLOGY 08/09/23 Mari Guajardo PA-C [address] [place] [address] Referring Physician PHYSICIAN [employer] 02/13/24
--- OUTSIDE RECORDS SUMMARY | 2024-07-12 07:57 | XMS_ITS | Clinical Summary ---
Author Organization [facility] Address [address] [facility] [place] [address] Care Team Providers Care Rn Liaison Name Role Phone Jarod Hernandez MD Primary Care Provider [phone] Source Comments [facility],non-owned Affiliates and Associated Physician Practices is amultiple site organization consisting of ambulatory clinics and hospital sitesin [place], [place], [place] and [place]. This disclosure is being madepursuant to the Care Everywhere program and may not contain all information available regarding this patient. Last updated 17.[facility] Allergies Active Allergy Reactions Criticality Noted Date [...] Comments Blood Pressure 103/76 05/31/2023 10:50 AM EXPERIENCE DESIGN DIRECTOR Pulse 109 05/31/2023 10:50 AM EXPERIENCE DESIGN DIRECTOR Temperature 36.7 C (98.1 F) 05/31/2023 10:50 AM EXPERIENCE DESIGN DIRECTOR Respiratory Rate 14 11/18/2015 10:51 AM CDT Oxygen Saturation 89% 05/31/2023 10:50 AM EXPERIENCE DESIGN DIRECTOR Inhaled Oxygen Concentration - - Weight 58.1 kg (128 lb) 05/31/2023 10:50 AM EXPERIENCE DESIGN DIRECTOR Height 165.1 cm (5' 5 ) 05/31/2023 10:50 AM EXPERIENCE DESIGN DIRECTOR Body Mass Index 21.3 05/31/2023 10:50 AM EXPERIENCE DESIGN DIRECTOR Plan of Treatment Health Maintenance Due Date [...] VACCINE (1 - 2023-2 5 season) 2023 DEPRESSION SCREENING 04/04/2024 INFLUENZA VACCINE (Season Ended) 2024 01/08/2019, 01/04/2018 HIB VACCINE Aged Out No longer eligi [...] age to complete this topic Care Teams Rn Liaison Relationship Specialty Start Date End Date Jarod Hernandez MD [address] [place] [address] PCP - General 07/25/15
[2024-07-12 09:03] LABS: Basophils Percent Auto 0.2 % (0.2-1.2); Hematocrit 40.6 % (37.0-47.0); Hemoglobin 13.4 g/dL (12.0-15.0); Immature Granulocyte Absolute 0.02 K/mm3 (0.00-0.031); Immature Granulocyte Percent A 0.4 % (0-0.5); Lymphocytes Absolute Auto 0.88 K/mm3 (0.9-3.2); Lymphocytes Percent Auto 16.2 % (18.3-44.2); Mean Corpuscular Hemoglobin 30.9 pg (26-34); Mean Corpuscular Volume 93.5 fl (80-100); Mean Platelet Volume 10.1 fl (7.4-10.4); Monocytes Absolute Auto 0.1 K/mm3 (0.1-0.6); Monocytes Percent Auto 0.9 % (2.6-8.5); Neutrophils Absolute Auto 4.5 K/mm3 (1.3-6.7); Neutrophils Percent Auto 82.3 % (45.5-73.1); Platelet Count Result 262 k/mm3 (150-375); Red Blood Count 4.34 M/mm3 (4.2-5.4); Red Cell Distribution Width 11.6 % (11.5-14.5); White Blood Count 5.4 K/mm3 (4.5-10.0)
[2024-07-12 10:43] LABS: Alanine Aminotransferase 17 U/L (6-35); Albumin Level 4.3 g/dL (3.5-5.1); Alkaline Phosphatase 83 U/L (38-126); Anion Gap 15 mmol/L (4-12); Aspartate Amino Transferase 27 U/L (14-36); Bilirubin,Total 0.2 mg/dL (0.2-1.3); Blood Urea Nitrogen 15 mg/dL (7-17); Calcium 10.2 mg/dL (8.4-10.2); Carbon Dioxide 22 mmol/L (22-30); Chloride 100 mmol/L (98-107); Estimated Glomerular Filt Rate > 60; Glucose 150 mg/dL (65-110); Potassium 4.6 mmol/L (3.4-5.0); Sodium 137 mmol/L (137-145)
[2024-07-18 20:03] LABS: Blastomyces Antibody NEGATIVE
== END 2024-07-12 07:43 | disposition home or self-care (01) ==
PROVIDERS: PCP Family Medicine; Visit Provider Internal Medicine Infectious Disease
DX: A31.0 Pulmonary mycobacterial infection (principal); R91.8 Other nonspecific abnormal finding of lung field; J43.9 Emphysema, unspecified
CPT/HCPCS: 36415; 71260; 80053; 85025; 86612; Q9967

== ENCOUNTER 2024-07-13 09:35 | Outpatient (CLI) | payer OTHER, SELFPAY ==
--- OUTSIDE RECORDS SUMMARY | 2024-07-13 09:58 | XMS_ITS | Clinical Summary ---
Author Organization [facility]ices Address [address] [place] [address] Care Team Providers Care Automobile Rental Representative Name Role Phone Jarod Hernandez MD Primary Care Provider [phone] Allergies Active Allergy Reactions Criticality Noted Date [...] Department Care Team Description 07/03/2024 Orders Only [facility] Oncology and Hematology - Kin [address] [place] [phone] Zaki Leon MD Hereditary hemochromatosis (Primary Dx) 06/20/2024 External Device Data STL ABSTRACTION Provider, Abstract 06/11/2024 Orders Only [facility] Oncology and Hematology - Kin [address] [place] [address] Zaki Leon MD 06/09/2024 External Device Data STL ABSTRACTION Provider, Abstract 06/08/2024 External Device Data STL ABSTRACTION Provider, Abstract 06/05/2024 External Device Data STL ABSTRACTION Provider, Abstract 06/05/2024 Orders Only [facility] Oncology and Hematology [facility] [address] [place] [address] Zaki Leon MD 05/22/2024 4:30 PM PIPELINE CONSTRUCTION INSPECTOR Telephone Check Up [facility] Oncology [facility] [address] [place] [address] Zaki Leon MD Hereditary hemochromatosis (Primary Dx); Acute deep vein thrombosis (DVT) of distal vein of left lower extremity (CMS/HCC) 05/22/2024 External Device Data STL ABSTRACTION Provider, Abstract 05/07/2024 Abstract [facility] Oncology [facility] [address] [place] [address] Zaki Leon MD 05/04/2024 Telephone [facility] Oncology [facility] Hematology [facility] [address] [place] [address] Zaki Leon MD Phlebotomy orders 04/26/2024 9:45 AM PIPELINE CONSTRUCTION INSPECTOR Office Visit [facility] Oncology [facility] [address] [place] [address] Zaki Leon MD Acute deep vein thrombosis (DVT) of distal vein of left lower extremity (CMS/HCC); Hereditary hemochromatosis; Erythrocytosis 04/26/2024 External Device Data STL ABSTRACTION Provider, Abstract 04/25/2024 External Device Data STL ABSTRACTION Provider, Abstract 04/25/2024 Telephone [facility] Oncology [facility] Hematology [facility] [address] [place] [address] Zaki Leon MD Diarrhea 04/24/2024 External Device [...] Comments Blood Pressure 87/54 04/26/2024 9:57 AM PIPELINE CONSTRUCTION INSPECTOR Pulse 55 04/26/2024 9:57 AM PIPELINE CONSTRUCTION INSPECTOR Temperature 36.4 C (97.5 F) 04/26/2024 9:57 AM PIPELINE CONSTRUCTION INSPECTOR Respiratory Rate 20 04/26/2024 9:57 AM PIPELINE CONSTRUCTION INSPECTOR Oxygen Saturation 92% 04/26/2024 9:57 AM PIPELINE CONSTRUCTION INSPECTOR Inhaled Oxygen Concentration - - Weight 57.2 kg (126 lb) 04/26/2024 9:57 AM PIPELINE CONSTRUCTION INSPECTOR Height 165.1 cm (5' 5 ) 11/15/2023 2:07 PM CDT Body Mass Index 20.97 11/15/2023 2:07 PM CDT Plan of Treatment Upcoming Encounters Date Type Department Care Team (Late st Contact Info) Description 08/29/2024 2:15 PM CDT Office Visit [facility] Oncology and Hematology - Kin [address] [facility] [address] [place] [address] Zaki Leon MD [address] [facility] [address] [place] [address] Health Maintenance Due Date Last [...] PM CDT HOMOCYSTEINE Routine 06/04/2024 4:04 PM PIPELINE CONSTRUCTION INSPECTOR MTHFR Routine 06/04/2024 11:48 AM PIPELINE CONSTRUCTION INSPECTOR CBC WITH AUTODIFFERENTIAL Routine 2024 11:18 AM PIPELINE CONSTRUCTION INSPECTOR from Last 3 Months Results * IRON LEVEL (07/03/2024 3:49 PM CDT) Blood us Zaki Leon MD CHEMISTRY ORDERABLES Final Resu lt * HOMOCYSTEINE (06/04/2024 4:04 PM PIPELINE CONSTRUCTION INSPECTOR) Blood us Zaki Leon MD CHEMISTRY ORDERABLES Final Resu lt * MTHFR (06/04/2024 11:48 AM PIPELINE CONSTRUCTION INSPECTOR) Blood us Zaki Leon MD CHEMISTRY ORDERABLES Final Resu lt * CBC WITH AUTODIFFERENTIAL (06/04/2024 11:18 AM PIPELINE CONSTRUCTION INSPECTOR) Blood us Zaki Leon MD HEMATOLOGY ORDERABLES Final Res ult from Last 3 Months Insurance [employer] [facility] [place] [id number] [facility] OPEN ACCESS Care Teams Automobile Rental Representative Relationship Specialty Start Date End Date Jarod Hernandez MD [address] [place] [id number] PCP - General Family Practice 01/18/19
--- OUTSIDE RECORDS SUMMARY | 2024-07-13 09:58 | XMS_ITS | Referral Summary ---
Author Organization [facility] Address [address] [place] [address] Care Team Providers Care Streetcar Operator Name Role Phone Jarod Hernandez MD Primary Care Provide r Encounters Date Type Department Care Team Description 07/04/2024 Telephone [facility] Medical [facility] Pulmonology [address] [place] [address] [place] [address] Moises Rojas MD 06/28/2024 2:00 PM CDT Office Visit [facility] Medical Group Infectious Disease [address] [place] [address] [address] [place] [address] Moises Rojas MD Right lower [...] on file Legal Sex Female 2:18 PM PRESS AND BLOW MACHINE TENDER Gender Identity Not on file Sexual Orientation [...] Plan of Treatment Not on file Insurance [facility] [id number] Care Teams Streetcar Operator Relationship Specialty Start Date End Date Jarod Hernandez MD [address] [place] [address] PCP - General Family Medicine 03/20/24
--- OUTSIDE RECORDS SUMMARY | 2024-07-13 09:58 | XMS_ITS | Encounter Summary ---
Author Organization [facility] Address [facility] [place] [address] Care Team Providers Care Systems Software Manager Name Role Phone Jarod Hernandez MD Primary Care Provider Raymon Conway MD Unavailable [phone] Mari Guajardo PA-C Unavailable [phone] Encounter Details Date Type Department Care Team (Late st Contact Info) Description 06/27/2023 Hospital Follow-up Call [facility] [address] [place] [address] Cassandra Medina, RN Social History [...] the past 12 months has th e [employer], gas, oil, or water company threatened to [...] Assessment Author Status No 06/02/2023 9:30 PM PITCH FLAKER Anita Chang R N Active * Are you blind or do you have serious difficulty seeing, even when wearing glasses? Answer Date of Assessment Author Status No 06/02/2023 9:30 PM PITCH FLAKER Anita Chang R N Active * Do you have serious difficulty walking or climbing stairs? Answer Date of Assessment Author Status Yes 06/02/2023 9:30 PM PITCH FLAKER Anita Chang R N Active * Do you have difficulty dressing or bathing? Answer Date of Assessment Author Status Yes 06/02/2023 9:30 PM PITCH FLAKER Anita Chang R N Active * Because of a physical, mental, or emotional condition, do you have difficulty doing errands alone such as visiting a doctor's office or shopping? Answer Date of Assessment Author Status Yes 06/02/2023 9:30 PM PITCH FLAKER Anita Chang R N Active documented as of this encounter Mental Status * Because of a physical, mental, or emotional condition, do you have serious difficulty concentrating, remembering, or making decisions? Answer Entry Date Author Status No 06/02/2023 9:30 PM PITCH FLAKER Anita Chang R N Active documented in this encounter Plan of Treatment Upcoming Encounters Date Type Department Care Team (Late st Contact Info) Description 08/15/2024 9:30 AM CDT Office Visit [facility] [place] [address] Mari Guajardo PA-C [address] [place], [place] [phone] documented as of this encounter Goals Goal Patient Goal Type Associated Problems Recent Progress Patient-Stated? Author Safety - demonstrates understanding of home safety measures Lifestyle Noemi Machado RN Safety Patient/family will have appropriate support at home upon discharge Lifestyle Noemi Machado RN documented as of this encounter Visit Diagnoses Not on filedocumented in this encounter Care Teams Systems Software Manager Relationship Specialty Start Date End Date Jarod Hernandez MD [address] [place] [address] PCP - General FAMILY PRACTICE 06/03/23 Raymon Conway MD [address] [place] [address] Consulting Physician CLINICAL CARDIAC ELECTROPHYSIOLOGY 08/09/23 Mari Guajardo PA-C [address] [place] [address] Referring Physician PHYSICIAN B[employer] FRUIT CROP FARMER 02/13/24 documented as of this encounter
--- OUTSIDE RECORDS SUMMARY | 2024-07-13 09:58 | XMS_ITS | Clinical Summary ---
Author Organization [facility] Address [address] [place] [address] Care Team Providers Care Managed Services Consultant Name Role Phone Jarod Hernandez MD Primary Care Provider [phone] Raymon Conway MD Unavailable [phone] Mari [...] Date Diagnosed Date Atrial fibrillation with RVR ([facility]) 0 06/03/2023 Pneumonia 06/02/2023 Social History [...] Never 07/19/2023 [facility] Utilities Answer Date Recorded In the past 12 months has e [employer], gas, oil, or water [employer] threatened to shut off services in your [...] Description 08/15/2024 9:30 AM CDT Office Visit [facility] [place] [phone] Mari Guajardo PA-C [address] [place] [address] Health Maintenance Due Date Last [...] Noemi Machado RN Insurance MEDICARE PART A [employer] OPEN ACCESS [facility] Advance Directives * Full Code (Latest Code Status on File) Date Activated Date Inactivated Comments 07/07/2023 7:48 AM * Full Code Date Activated Date Inactivated Comments 06/07/2023 7:45 AM 06/23/2023 7:20 PM Care Teams Managed Services Consultant Relationship Specialty Start Date End Date Jarod Hernandez MD [address] [place] [address] PCP - General FAMILY PRACTICE 06/03/23 Raymon Conway MD [address] [place] [address] Consulting Physician CLINICAL CARDIAC ELECTROPHYSIOLOGY 08/09/23 Mari Guajardo PA-C [address] [place] [address] Referring Physician PHYSICIAN PARTNER CCO 02/13/24
--- OUTSIDE RECORDS SUMMARY | 2024-07-13 09:58 | XMS_ITS | Clinical Summary ---
Author Organization [facility] Address [address] [place] [address] Care Team Providers Care Mold Car Pusher Name Role Phone Jarod Hernandez MD Primary Care Provider [phone] Source Comments [facility],non-owned Affiliates and Associated Physician Practices is amultiple site organization consisting of ambulatory clinics and hospital sitesin [place], [place], [place]. This disclosure is being madepursuant to the Care Everywhere program and may not contain all information available regarding this patient. Last updated 17.[facility] Allergies Active Allergy Reactions Criticality Noted Date [...] Comments Blood Pressure 103/76 05/31/2023 10:50 AM LABORATORY GENETICIST Pulse 109 05/31/2023 10:50 AM LABORATORY GENETICIST Temperature 36.7 C (98.1 F) 05/31/2023 10:50 AM LABORATORY GENETICIST Respiratory Rate 14 11/18/2015 10:51 AM CDT Oxygen Saturation 89% 05/31/2023 10:50 AM LABORATORY GENETICIST Inhaled Oxygen Concentration - - Weight 58.1 kg (128 lb) 05/31/2023 10:50 AM LABORATORY GENETICIST Height 165.1 cm (5' 5 ) 05/31/2023 10:50 AM LABORATORY GENETICIST Body Mass Index 21.3 05/31/2023 10:50 AM LABORATORY GENETICIST Plan of Treatment Health Maintenance Due Date [...] age to complete this topic Care Teams Mold Car Pusher Relationship Specialty Start Date End Date Jarod Hernandez MD [address] [place] [address] PCP - General 07/25/15
--- OUTSIDE RECORDS SUMMARY | 2024-07-13 09:58 | XMS_ITS | Clinical Summary ---
Author Organization [facility] Address [address] [place] [address] Care Team Providers Care Mounting Machine Operator Name Role Phone Jarod Hernandez MD [...] Type Department Care Team Description 07/04/[address] [facility] Medical [facility] Pulmonology [facility] [facility] [address] [place] [address] Moises Rojas MD 06/28/2024 2:00 PM CDT Office Visit [facility] Infectious Disease [address] [facility] [address] [place] [address] Moises Rojas MD Right lower [...] on file Legal Sex Female 2:18 PM PEELER OPERATOR Gender Identity Not on file Sexual [...] Completed 023, 03/22/2016, 12/22/2010 Insurance Care Teams Mounting Machine Operator Relationship Specialty Start Date End Date Jarod Hernandez MD [address] [place] [address] PCP - General Family Medicine 03/20/24
== END 2024-07-13 09:36 | disposition home or self-care (01) ==
PROVIDERS: PCP Family Medicine; Referring Provider Internal Medicine Infectious Disease; Visit Provider Nurse Practitioner Family
DX: R09.3 Abnormal sputum (principal); A31.0 Pulmonary mycobacterial infection
CPT/HCPCS: 87070; 87205

== ENCOUNTER 2024-08-10 17:19 | Outpatient (CLI) | payer OTHER, SELFPAY ==
--- OUTSIDE RECORDS SUMMARY | 2024-08-10 17:23 | XMS_ITS | Clinical Summary ---
Author Organization [facility] Address [address] [place] [address] Care Team Providers Care Ditch Worker Name Role Phone Jarod Hernandez MD [...] Encounters Date Type Department Care Team Description 08/09/2024 Documentation [facility] Medical [facility] Pulmonology [address] [place] [address] [place] [address] Damaris Mtahias, STEW 07/04/2024 Telephone [facility] Pulmonology [address] [place] [address] [address] [place] [address] Moises Rojas MD 06/28/2024 2:00 PM CDT Office Visit [facility] Medical Group Infectious Disease [facility] [address] [place] [address] Moises Rojas MD Right lower lobe lung [...] on file Legal Sex Female 2:18 PM DIRECTOR SERVICE Gender Identity Not on file Sexual Orientation [...] vaccine 65+ Completed 023, 03/22/2016, 12/22/2010 Insurance [facility] [id number] Care Teams Ditch Worker Relationship Specialty Start Date End Date Jarod Hernandez MD [address] [place] [address] PCP - General Family Medicine 03/20/24
--- OUTSIDE RECORDS SUMMARY | 2024-08-10 17:23 | XMS_ITS | Encounter Summary ---
Author Organization [facility] Address [address] [place] [address] Care Team Providers Care Ladle Cleaner Name Role Phone Jarod Hernandez MD Primary Care Provide r Encounter Details Date Type Department Care Team (Late st Contact Info) Description 08/09/2024 Documentation [facility] Medical [facility] Pulmonology [address] [facility] [address] [place] [address] Damaris Mathias RN Social History Tobacco Use Types Packs/Day Years Used Date Smoking Tobacco: Every Day Cigarettes Comments Unknown Sex and Gender Information Value Date Recorded Sex Assigned at Not on file Legal Sex Female 2:18 PM PAYROLL CLERK Gender Identity Not on file Sexual Orientation Not on file documented as of this encounter Progress Notes * Damaris Mathias RN - 08/09/2024 10:04 AM CDT Spoke with pt regarding labs ordered at 06/28 visit. Pt stated she had them done at [facility]. [facility] has been contacted multiple times and we have been informed that they do not have the labs that were ordered. Pt stated she also had labs done in [place], which have been scanned into media and consist of a cbc and Blastomyces. Pt informed she could have the labs done this morning or we could rsd appt scheduled for today. Pt stated she has some important business that she has to take care of today at 1030 so she will not have time to have lab work done. Pt would like to rsd. Appt is now scheduled for 09/27 @ 1530. documented in this encounter Plan of Treatment Not on file documented as of this encounter Visit Diagnoses Not on filedocumented in this encounter Care Teams Ladle Cleaner Relationship Specialty Start Date End Date Jarod Hernandez MD [address] [place] [address] PCP - General Family Medicine 03/20/24 documented as of this encounter
--- OUTSIDE RECORDS SUMMARY | 2024-08-10 17:23 | XMS_ITS | Encounter Summary ---
Author Organization [facility] Address [facility] [place] [address] Care Team Providers Care Supervisor [employer] Name Role Phone Jarod Hernandez MD Primary Care Provider [phone] Raymon Conway MD Unavailable [phone] Mari Guajardo PA-C Unavailable [phone] Encounter Details Date Type Department Care Team (Late st Contact Info) Description 06/27/2023 Hospital Follow-up Call [facility] Cardiovascular Care Unit [address] [place] [address] Cassandra Medina, RN Social History [...] the past 12 months has th e [employer], gas, oil, or water company threatened to [...] place to sleep or slept in a fdc (including now)? No 06/05/2023 Comments Unknown Sex and Gender Information Value Date Recorded Sex Assigned at Not on file Legal Sex Female 1:23 AM CDT Gender Identity Not on file Sexual Orientation Not on file documented as of this encounter Functional Status * Are you deaf or do you have serious difficulty hearing Answer Date of Assessment Author Status No 06/02/2023 9:30 PM BRAND MARKETING MANAGER Anita Chang R N Active * Are you blind or do you have serious difficulty seeing, even when wearing glasses? Answer Date of Assessment Author Status No 06/02/2023 9:30 PM BRAND MARKETING MANAGER Anita Chang R N Active * Do you have serious difficulty walking or climbing stairs? Answer Date of Assessment Author Status Yes 06/02/2023 9:30 PM BRAND MARKETING MANAGER Anita Chang R N Active * Do you have difficulty dressing or bathing? Answer Date of Assessment Author Status Yes 06/02/2023 9:30 PM BRAND MARKETING MANAGER Anita Chang R N Active * Because of a physical, mental, or emotional condition, do you have difficulty doing errands alone such as visiting a doctor's office or shopping? Answer Date of Assessment Author Status Yes 06/02/2023 9:30 PM BRAND MARKETING MANAGER Anita Chang R N Active documented as of this encounter Mental Status * Because of a physical, mental, or emotional condition, do you have serious difficulty concentrating, remembering, or making decisions? Answer Entry Date Author Status No 06/02/2023 9:30 PM BRAND MARKETING MANAGER Anita Chang R N Active documented in this encounter Plan of Treatment Upcoming Encounters Date Type Department Care Team (Late st Contact Info) Description 08/15/2024 9:30 AM CDT Office Visit [facility] [place] [address] Mari Guajardo PA-C [address] [place], [place] [address] documented as of this encounter Goals Goal Patient Goal Type Associated Problems Recent Progress Patient-Stated? Author Safety - demonstrates understanding of home safety measures Lifestyle Noemi Machado RN Safety Patient/family will have appropriate support at home upon discharge Lifestyle Noemi Machado RN documented as of this encounter Visit Diagnoses Not on filedocumented in this encounter Care Teams Supervisor [employer] Relationship Specialty Start Date End Date Jarod Hernandez MD [address] [place] [address] PCP - General FAMILY PRACTICE 06/03/23 Raymon Conway MD [address] [place] [address] Consulting Physician CLINICAL CARDIAC ELECTROPHYSIOLOGY 08/09/23 Mari Guajardo PA-C [address] [place] [address] Referring Physician PHYSICIAN TEACHER OF THE VISUALLY IMPAIRED 02/13/24 documented as of this encounter
--- OUTSIDE RECORDS SUMMARY | 2024-08-10 17:23 | XMS_ITS | Clinical Summary ---
Author Organization [facility] Address [address] [place] [address] Care Team Providers Care Chief Of Field Operations Name Role Phone Jarod Hernandez MD Primary Care Provider [phone] Raymon Conway MD Unavailable [phone] Mari Guajardo PA-C Unavailable [phone] [...] Date Diagnosed Date Atrial fibrillation with RVR ([facility]) 0 06/03/2023 Pneumonia 06/02/2023 Social History [...] materials from doctor or pharmacy Never 07/19/2023 [facility] Utilities Answer Date Recorded In the past 12 months has e [employer], gas, oil, or water [employer] threatened to shut off services in your [...] Description 08/15/2024 9:30 AM CDT Office Visit [facility] [place] [phone] Mari Guajardo PA-C [address] [place] [address] Health Maintenance Due Date Last [...] - 1-dose 75+ series) 2026 Pneumococcal Vaccine: 50+ Years Completed 12/15/2022, 03/22/2016, 12/22/2010 Meningococcal B [...] Noemi Machado RN Insurance MEDICARE PART A [employer] OPEN ACCESS [facility] Advance Directives * Full Code (Latest Code Status on File) Date Activated Date Inactivated Comments 07/07/2023 7:48 AM * Full Code Date Activated Date Inactivated Comments 06/07/2023 7:45 AM 06/23/2023 7:20 PM Care Teams Chief Of Field Operations Relationship Specialty Start Date End Date Jarod Hernandez MD [address] [place] [address] PCP - General FAMILY PRACTICE 06/03/23 Raymon Conway MD [address] [place] [address] Consulting Physician CLINICAL CARDIAC ELECTROPHYSIOLOGY 08/09/23 Mari Guajardo PA-C [address] [place] [address] Referring Physician PHYSICIAN MARRIAGE PERFORMER 02/13/24
--- OUTSIDE RECORDS SUMMARY | 2024-08-10 17:23 | XMS_ITS | Clinical Summary ---
Author Organization [facility] Administrative Offices Address [address] [place] [address] Care Team Providers Care Inspector Precision Name Role Phone Jarod Hernandez MD Primary Care Provider [phone] Allergies Active Allergy Reactions Criticality Noted Date [...] Encounters Date Type Department Care Team Description 08/01/2024 Orders Only [facility] Oncology and Hematology - Kin [address] [place] [address] Zaki Leon MD 07/23/2024 Orders Only [facility] Oncology and Hematology - Kin [address] [place] [address] Zaki Leon MD Hereditary hemochromatosis 07/03/2024 Orders Only [facility] Oncology and Hematology - Kin [address] [place] [address] Zaki Leon MD Hereditary hemochromatosis (Primary Dx) 06/20/2024 External Device Data STL ABSTRACTION Provider, Abstract 06/11/2024 Orders Only [facility] Oncology and Hematology [facility] [address] [place] [address] Zaki Leon MD 06/09/2024 External Device Data STL ABSTRACTION Provider, Abstract 06/08/2024 External Device Data STL ABSTRACTION Provider, Abstract 06/05/2024 External Device Data STL ABSTRACTION Provider, Abstract 06/05/2024 Orders Only [facility] Oncology and Hematology Kin [address] [place] [address] Zaki Leon MD 05/22/2024 4:30 PM RACK MAKER Telephone Check Up [facility] Oncology [facility] Hematology [facility] [address] [place] [address] Zaki Leon MD Hereditary hemochromatosis (Primary Dx); [...] Comments Blood Pressure 87/54 04/26/2024 9:57 AM RACK MAKER Pulse 55 04/26/2024 9:57 AM RACK MAKER Temperature 36.4 C (97.5 F) 04/26/2024 9:57 AM RACK MAKER Respiratory Rate 20 04/26/2024 9:57 AM RACK MAKER Oxygen Saturation 92% 04/26/2024 9:57 AM RACK MAKER Inhaled Oxygen Concentration - - Weight 57.2 kg (126 lb) 04/26/2024 9:57 AM RACK MAKER Height 165.1 cm (5' 5 ) 11/15/2023 2:07 PM CDT Body Mass Index 20.97 11/15/2023 2:07 PM CDT Plan of Treatment Upcoming Encounters Date Type Department Care Team (Late st Contact Info) Description 08/13/2024 Orders Only [facility] Oncology and Hematology [facility] [address] [place] [address] Zaki Leon MD [address] [employer] [email or web address] [address] [place] [address] Hereditary hemochromatosis 08/29/2024 2:15 PM CDT Office Visit [facility] Oncology and Hematology [facility] [address] [place] [address] Zaki Leon MD [address] [employer] [address] [place] [phone] Health Maintenance Due Date Last Done Comments [...] OSTEOPOROSIS SCREENING 02/02/2016 INFLUENZA VACCINE (#1) 2023 Procedures Procedure Name Priority Date/Time Associated Diagnosis Comments CBC MIXED CELL DIFFERENTIAL Routine 07/04 8:20 AM CDT IRON LEVEL Routine 07/03/2024 3:49 PM CDT HOMOCYSTEINE Routine 06/04/2024 4:04 PM RACK MAKER MTHFR Routine 06/04/2024 11:48 AM RACK MAKER CBC WITH AUTODIFFERENTIAL Routine 2024 11:18 AM RACK MAKER from Last 3 Months Results * CBC MIXED CELL DIFFERENTIAL (07/31/2024 8:20 AM CDT) Blood us Zaki Leon MD HEMATOLOGY ORDERABLES Final Res ult * IRON LEVEL (07/03/2024 3:49 PM CDT) Blood us Zaki Leon MD CHEMISTRY ORDERABLES Final Resu lt * HOMOCYSTEINE (06/04/2024 4:04 PM RACK MAKER) Blood us Zaki Leon MD CHEMISTRY ORDERABLES Final Resu lt * MTHFR (06/04/2024 11:48 AM RACK MAKER) Blood us Zaki Leon MD CHEMISTRY ORDERABLES Final Resu lt * CBC WITH AUTODIFFERENTIAL (06/04/2024 11:18 AM RACK MAKER) Blood us Zaki Leon MD HEMATOLOGY ORDERABLES Final Res ult from Last 3 Months [facility] [place] [id number] [employer] [facility] [place] Care Teams Inspector Precision Relationship Specialty Start Date End Date Jarod Hernandez MD [address] [place] [id number] PCP - General Family Practice 01/18/19
--- OUTSIDE RECORDS SUMMARY | 2024-08-10 17:23 | XMS_ITS | Referral Summary ---
Author Organization [facility] Address [address] [place] [address] Care Team Providers Care Pouring Crane Operator Name Role Phone Jarod Hernandez MD Primary Care Provide r Encounters Date Type Department Care Team Description 08/09/2024 Documentation [facility] Pulmonology [address] [place] [address] [place] [phone] Damaris Mathias RN 07/04/2024 Telephone [facility] Pulmonology [address] [place] [address] [address] [place] [address] Moises Rojas MD 06/28/2024 2:00 PM CDT Office Visit [facility] Infectious Disease [address] [place] [address] [place] [address] Moises Rojas MD Right lower lobe [...] tablet (1 mg total) by mouth daily Active cyanocobalamin (Vitamin B-12) 500 mcg tabletIndicatio [...] on file Legal Sex Female 2:18 PM CONDOMINIUM PROPERTY MANAGER Gender Identity Not on file Sexual Orientation [...] Plan of Treatment Not on file Insurance [facility] [id number] Care Teams Pouring Crane Operator Relationship Specialty Start Date End Date Jarod Hernandez MD [address] [place] [address] PCP - General Family Medicine 03/20/24
--- OUTSIDE RECORDS SUMMARY | 2024-08-10 17:23 | XMS_ITS | Clinical Summary ---
Author Organization [facility] [employer] Address [address] [place] [address] Care Team Providers Care Luggage Liner Name Role Phone Jarod Hernandez MD Primary Care Provider [phone] Source Comments [facility] [employer],non-owned Affiliates and Associated Physician Practices is amultiple site organization consisting of ambulatory clinics and hospital sitesin [place], [place], [place] and [place]. This disclosure is being madepursuant to the Care Everywhere program and may not contain all information available regarding this patient. Last updated 17.[facility] [employer] Allergies Active Allergy Reactions Criticality Noted Date Comments Povidone Iodine Swelling Low 08/29/2015 Medications * Be aware that medications may not be up to date on this document. Alwaysverify current medications with the patient. albuterol (PROVENTIL;VENT SEDRICK) (2.5 MG/3ML) 0.083% nebulizer solution Inhale 2.5 mg by mouth 3 times daily as needed 06/28/2017 Active hydroCHLOROthia zide (HYDRODIURIL) 12.5 MG Take 12.5 mg by [...] tablet by mouth once daily 03/04/2023 Active fluticasone-ume clidin-vilant (Trelegy Ellipta) 200-62.5-25 MCG/ACT inhaler Inhale 1 [...] cerumen of left ear 07/18/2017 07/18/2017 Immunizations Immunization Administration Dates Next Due INFLUENZA VACCINE 01/08/2019,01/04/2018 Social History Tobacco Use Types Packs/Day Years Used Date Smoking Tobacco: Every Day Cigarettes Smokeless Tobacco: Never Alcohol Use Standard Drinks/Week Comments Yes 11.7 (1 standard dri nk = 0.6 oz pure alcohol) whiskey shooters 3/day, previous 10-15 daily Comments Unknown Sex and Gender Information Value Date Recorded Sex Assigned at Not on file Legal Sex Female 5:53 PM DISTRIBUTION LEAD Gender Identity Not on file Sexual Orientation Not on file Last Filed Vital Signs Vital Sign Reading Time Taken Comments Blood Pressure 103/76 05/31/2023 10:50 AM DISTRIBUTION LEAD Pulse 109 05/31/2023 10:50 AM DISTRIBUTION LEAD Temperature 36.7 C (98.1 F) 05/31/2023 10:50 AM DISTRIBUTION LEAD Respiratory Rate 14 11/18/2015 10:51 AM CDT Oxygen Saturation 89% 05/31/2023 10:50 AM DISTRIBUTION LEAD Inhaled Oxygen Concentration - - Weight 58.1 kg (128 lb) 05/31/2023 10:50 AM DISTRIBUTION LEAD Height 165.1 cm (5' 5 ) 05/31/2023 10:50 AM DISTRIBUTION LEAD Body Mass Index 21.3 05/31/2023 10:50 AM DISTRIBUTION LEAD Plan of Treatment Health Maintenance Due Date [...] patient's age to complete this topic Insurance [employer] Member Subscriber Plan / Payer (Ef fective 2009-Present) Name:Jen Harrell Member ID:[id number] Relation to Subscriber:Self Name:Jen Harrell Subscriber ID:[id number] Payer ID:Not on file Type:HMO Address: [address] [employer] Member Subscriber Plan / Payer (Ef fective for All Dates) Name:Jen Harrell Member ID:[id number] Relation to Subscriber:Self Name:Jen Harrell Subscriber ID:[id number] Payer ID:Not on file Type:O Address: [address] SELF PAY NO INSURANCE Member Subscriber Plan / Payer (Ef fective for All Dates) Name:Jen Harrell Member ID:Not on file Relation to Subscriber:Not on file Name:JEN HARRELL Subscriber ID:Not on file Address: [place] [address] Payer ID:Not on file Group ID:Not on file Type:Self Pay Address: [place], [place] Care Teams Luggage Liner Relationship Specialty Start Date End Date Jarod Hernandez MD [address] [place] [phone] PCP - General 07/25/15
[2024-08-10 18:43] LABS: Alanine Aminotransferase 12 U/L (6-35); Albumin Level 4.4 g/dL (3.5-5.1); Alkaline Phosphatase 73 U/L (38-126); Anion Gap 6 mmol/L (4-12); Aspartate Amino Transferase 27 U/L (14-36); Bilirubin,Total 0.3 mg/dL (0.2-1.3); Blood Urea Nitrogen 13 mg/dL (7-17); Calcium 9.9 mg/dL (8.4-10.2); Carbon Dioxide 31 mmol/L (22-30); Chloride 101 mmol/L (98-107); Estimated Glomerular Filt Rate > 60; Glucose 73 mg/dL (65-110); Osmolality Calculated 285 mOsm/kg (285-295); Potassium 4.3 mmol/L (3.4-5.0); Sodium 138 mmol/L (137-145); Total Protein 7.3 g/dL (6.3-8.2)
[2024-08-10 19:04] LABS: Rheumatoid Factor Screen Negative (Negative)
[2024-08-10 19:18] LABS: HIV 1 P24 AG Negative (Negative); HIV 1/2 AB Negative (Negative)
[2024-08-10 19:51] LABS: Erythrocyte Sedimentation Rate 26 mm/hr (0-20)
== END 2024-08-10 17:20 | disposition home or self-care (01) ==
LOC: CHSLAB 17:22
PROVIDERS: PCP Family Medicine; Visit Provider Internal Medicine Infectious Disease
DX: R91.8 Other nonspecific abnormal finding of lung field (principal); A31.0 Pulmonary mycobacterial infection
CPT/HCPCS: 36415; 80053; 83036; 85652; 86430; 86698; 87385; 87806

== ENCOUNTER 2024-08-14 16:59 | Outpatient (CLI) | payer OTHER, SELFPAY ==
--- OUTSIDE RECORDS SUMMARY | 2024-08-14 17:03 | XMS_ITS | Clinical Summary ---
Author Organization [facility] Address [address] [place] [address] Care Team Providers Care Granite Polisher Apprentice Name Role Phone Jarod Hernandez MD Primary Care Provider [phone] Raymon Conway MD Unavailable [phone] Mari Guajardo PA-C Unavailable [phone] Allergies Active Allergy Reactions Criticality Noted [...] Date Diagnosed Date Atrial fibrillation with RVR ([facility]) 0 06/03/2023 Pneumonia 06/02/2023 Social History Tobacco [...] materials from doctor or pharmacy Never 07/19/2023 [facility] Utilities Answer Date Recorded In the past 12 months has e [employer], gas, oil, or water [employer] threatened to shut off services in your [...] place to sleep or slept in a fci (including now)? No 06/05/2023 Comments Unknown Sex [...] Upcoming Encounters Date Type Department Care Team (Latest Contact Info) Description 08/15/2024 9:15 AM CDT Hospital Encounter [facility] [address] [place] [address] Mari Guajardo PA-C [address] [place], [place] [address] 08/15/2024 9:30 AM CDT Office Visit [facility] [address] [place] [address] Mari Guajardo PA-C [address] [place], [place] [address] Health Maintenance Due Date Last Done Comments Colorectal Cancer Screening Colonoscopy (10 Years) 1950 Hepatitis C 1969 Mammogram Screening 1991 Zoster Vaccines (1 of 2) 2001 Dexa [...] Noemi Machado RN Insurance MEDICARE PART A [employer] OPEN ACCESS [facility] Advance Directives * Full Code (Latest Code Status on File) Date Activated Date Inactivated Comments 07/07/2023 7:48 AM * Full Code Date Activated Date Inactivated Comments 06/07/2023 7:45 AM 06/23/2023 7:20 PM Care Teams Granite Polisher Apprentice Relationship Specialty Start Date End Date Jarod Hernandez MD [address] [place] [address] PCP - General FAMILY PRACTICE 06/03/23 Raymon Conway MD [address] [place] [address] Consulting Physician CLINICAL CARDIAC ELECTROPHYSIOLOGY 08/09/23 Mari Guajardo PA-C [address] [place] [address] Referring Physician PHYSICIAN MARINE DIVER 02/13/24
--- OUTSIDE RECORDS SUMMARY | 2024-08-14 17:03 | XMS_ITS | Encounter Summary ---
Author Organization [facility] Address [facility] [place] [address] Care Team Providers Care Manager Management Name Role Phone Jarod Hernandez MD Primary Care Provider [phone] Raymon Conway MD Unavailable [phone] Mari Guajardo PA-C Unavailable [phone] Encounter Details Date Type Department Care Team (Late st Contact Info) Description 06/27/2023 Hospital Follow-up Call [facility] [address] [place] [address] Cassandra Medina, RN Social History [...] the past 12 months has th e [employer], gas, oil, or water company threatened to [...] place to sleep or slept in a mcc (including now)? No 06/05/2023 Comments Unknown Sex and Gender Information Value Date Recorded Sex Assigned at Not on file Legal Sex Female 1:23 AM CDT Gender Identity Not on file Sexual Orientation Not on file documented as of this encounter Functional Status * Are you deaf or do you have serious difficulty hearing Answer Date of Assessment Author Status No 06/02/2023 9:30 PM METAL FABRICATION SUPERVISOR Anita Chang R N Active * Are you blind or do you have serious difficulty seeing, even when wearing glasses? Answer Date of Assessment Author Status No 06/02/2023 9:30 PM METAL FABRICATION SUPERVISOR Anita Chang R N Active * Do you have serious difficulty walking or climbing stairs? Answer Date of Assessment Author Status Yes 06/02/2023 9:30 PM METAL FABRICATION SUPERVISOR Anita Chang R N Active * Do you have difficulty dressing or bathing? Answer Date of Assessment Author Status Yes 06/02/2023 9:30 PM Anita Perez R N Active * Because of a physical, mental, or emotional condition, do you have difficulty doing errands alone such as visiting a doctor's office or shopping? Answer Date of Assessment Author Status Yes 06/02/2023 9:30 PM Anita Perez R N Active documented as of this encounter Mental Status * Because of a physical, mental, or emotional condition, do you have serious difficulty concentrating, remembering, or making decisions? Answer Entry Date Author Status No 06/02/2023 9:30 PM Anita Perez R N Active documented in this encounter Plan of Treatment Upcoming Encounters Date Type Department Care Team (Latest Contact Info) Description 08/15/2024 9:15 AM CDT Hospital Encounter [facility] [address] [place] [address] Mari Guajardo PA-C [address] [place] [address] 08/15/2024 9:30 AM CDT Office Visit [facility] [address] [place] [address] Mari Guajardo PA-C [address] [place] [address] documented as of this encounter Goals Goal Patient Goal Type Associated Problems Recent Progress Patient-Stated? Author Safety - demonstrates understanding of home safety measures Lifestyle Noemi Machado, RN Safety Patient/family will have appropriate support at home upon discharge Lifestyle Noemi Machado RN documented as of this encounter Visit Diagnoses Not on filedocumented in this encounter Care Teams Manager Management Relationship Specialty Start Date End Date Jarod Hernandez MD [address] [place] [address] PCP - General FAMILY PRACTICE 06/03/23 Raymon Conway MD [address] [place] [phone] Consulting Physician CLINICAL CARDIAC ELECTROPHYSIOLOGY 08/09/23 Mari Guajardo PA-C [address] [place], [place] [address] Referring Physician PHYSICIAN WINDOW/DISTRIBUTION CLERK 02/13/24 documented as of this encounter
--- OUTSIDE RECORDS SUMMARY | 2024-08-14 17:03 | XMS_ITS | Referral Summary ---
Author Organization [facility] Address [address] [place] [address] Care Team Providers Care Drip Box Tender Name Role Phone Jarod Hernandez MD Primary Care Provide r Encounters Date Type Department Care Team Description 08/09/2024 Documentation [facility] Pulmonology [address] [place] [address] [place] [address] Damaris Mathias RN 07/04/2024 Telephone [facility] Pulmonology [address] [place] [address] [address] [place] [address] Moises Rojas MD 06/28/2024 2:00 PM CDT Office Visit [facility] Infectious Disease [address] [place] [address] [place] [address] Moises Rojas MD Right lower lobe [...] on file Legal Sex Female 2:18 PM SHIP JOINER Gender Identity Not on file Sexual Orientation [...] Plan of Treatment Not on file Insurance [employer] [id number] Care Teams Drip Box Tender Relationship Specialty Start Date End Date Jarod Hernandez MD [address] [place] [address] PCP - General Family Medicine 03/20/24
--- OUTSIDE RECORDS SUMMARY | 2024-08-14 17:03 | XMS_ITS | Clinical Summary ---
Author Organization [facility] Administrative Offices Address [address] [place] [address] Care Team Providers Care Mower Operator Name Role Phone Jarod Hernandez MD Primary Care Provider [phone] Allergies Active Allergy Reactions Criticality Noted Date [...] Encounters Date Type Department Care Team Description 08/13/2024 Orders Only [facility] Oncology and Hematology - Kin [address] [place] [address] Zaki Leon MD Hereditary hemochromatosis 08/01/2024 Orders Only [facility] Oncology and Hematology - Kin [address] [place] [address] Zaki Leon MD 07/23/2024 Orders Only [facility] Oncology and Hematology - Kin [address] [place] [address] Zaki Leon MD Hereditary hemochromatosis 07/03/2024 Orders Only [facility] Oncology and Hematology - Kin [address] [place] [address] Zaki Leon MD Hereditary hemochromatosis (Primary Dx) 06/20/2024 External Device Data STL ABSTRACTION Provider, Abstract 06/11/2024 Orders Only [facility] Oncology and Hematology - [address] [place] [address] Zaki Leon MD 06/09/2024 External Device Data STL ABSTRACTION Provider, Abstract 06/08/2024 External Device Data STL ABSTRACTION Provider, Abstract 06/05/2024 External Device Data STL ABSTRACTION Provider, Abstract 06/05/2024 Orders Only [facility] Oncology and Hematology - Kin [address] [place] [address] Zaki Leon MD 05/22/2024 4:30 PM SKETCH ARTIST Telephone Check Up [facility] Oncology and Hematology - Kin [address] [place] [address] Zaki Leon MD Hereditary hemochromatosis (Primary Dx); [...] Comments Blood Pressure 87/54 04/26/2024 9:57 AM SKETCH ARTIST Pulse 55 04/26/2024 9:57 AM SKETCH ARTIST Temperature 36.4 C (97.5 F) 04/26/2024 9:57 AM SKETCH ARTIST Respiratory Rate 20 04/26/2024 9:57 AM SKETCH ARTIST Oxygen Saturation 92% 04/26/2024 9:57 AM SKETCH ARTIST Inhaled Oxygen Concentration - - Weight 57.2 kg (126 lb) 04/26/2024 9:57 AM SKETCH ARTIST Height 165.1 cm (5' 5 ) 11/15/2023 2:07 PM CDT Body Mass Index 20.97 11/15/2023 2:07 PM CDT Plan of Treatment Upcoming Encounters Date Type Department Care Team (Late st Contact Info) Description 08/29/2024 2:15 PM CDT Office Visit [facility] Oncology and Hematology [facility] [address] [facility] [address] [place] [address] Zaki Leon MD [address] [facility] [address] [place] [address] Health Maintenance Due Date Last [...] PM CDT HOMOCYSTEINE Routine 06/04/2024 4:04 PM SKETCH ARTIST MTHFR Routine 06/04/2024 11:48 AM SKETCH ARTIST CBC WITH AUTODIFFERENTIAL Routine 2024 11:18 AM SKETCH ARTIST from Last 3 Months Results * CBC MIXED CELL DIFFERENTIAL (07/31/2024 8:20 AM CDT) Blood us Zaki Leon MD HEMATOLOGY ORDERABLES Final Res ult * IRON LEVEL (07/03/2024 3:49 PM CDT) Blood us Zaki Leon MD CHEMISTRY ORDERABLES Final Resu lt * HOMOCYSTEINE (06/04/2024 4:04 PM SKETCH ARTIST) Blood us Zaki Leon MD CHEMISTRY ORDERABLES Final Resu lt * MTHFR (06/04/2024 11:48 AM SKETCH ARTIST) Blood us Zaki Leon MD CHEMISTRY ORDERABLES Final Resu lt * CBC WITH AUTODIFFERENTIAL (06/04/2024 11:18 AM SKETCH ARTIST) Blood us Zaki Leon MD HEMATOLOGY ORDERABLES Final Res ult from Last 3 Months Insurance [employer] [facility] [place] Care Teams Mower Operator Relationship Specialty Start Date End Date Jaord Hernandez MD [address] [place] [address] PCP - General Family Practice 01/18/19
--- OUTSIDE RECORDS SUMMARY | 2024-08-14 17:03 | XMS_ITS | Encounter Summary ---
Author Organization [facility] [employer] [facility] Address [address] [place] [address] Care Team Providers Care Aerospace Physiological Technician Name Role Phone Jarod Hernandez MD Primary Care Provider [phone] Encounter Details Date Type Department Care Team (Late Contact Info) Description 08/13/2024 Orders Only [facility] Oncology and Hematology Kin [address] [place] [address] Zaki Leon MD [facility] [employer] [address] [place] [phone] Hereditary hemochromatosis Social History Tobacco Use Types Packs/Day Years Used Date Smoking Tobacco: Every Day Cigarettes 1 40.7 Started: 11/15/1983 Smokeless Tobacco: Never Alcohol Use [...] Encounters Date Type Department Care Team (Late Contact Info) Description 08/29/2024 2:15 PM CDT Office Visit [facility] Oncology and Hematology - Kin [address] [place] [address] Zaki Leon MD [address] [employer] [address] [place] [phone] documented as of this encounter Visit Diagnoses Diagnosis Hereditary hemochromatosis documented in this encounter Care Teams Aerospace Physiological Technician Relationship Specialty Start Date End Date Jarod Hernandez MD [address] [place] [phone] PCP - General Family Practice 01/18/19 documented as of this encounter
--- OUTSIDE RECORDS SUMMARY | 2024-08-14 17:03 | XMS_ITS | Clinical Summary ---
Author Organization [facility] Address [address] [place] [address] Care Team Providers Care Hospital Wellness Coordinator Name Role Phone Jarod Hernandez MD Primary [...] Type Department Care Team Description 08/09/2024 Documentation [facility] Pulmonology [address] [place] [address] [place] [address] Damaris Mathias, STEW 07/04/2024 Telephone [facility] Pulmonology [address] [place] [address] [address] [place] [address] Moises Rojas MD 06/28/2024 2:00 PM CDT Office Visit [facility] Medical Group Infectious Disease [facility] [address] [place] [address] Moises Rojas MD Right lower lobe lung [...] on file Legal Sex Female 2:18 PM VARNISH FILTERER Gender Identity Not on file Sexual Orientation [...] vaccine 65+ Completed 023, 03/22/2016, 12/22/2010 Insurance [facility] [id number] Care Teams Hospital Wellness Coordinator Relationship Specialty Start Date End Date Jarod Hernandez MD [address] [place] [address] PCP - General Family Medicine 03/20/24
--- OUTSIDE RECORDS SUMMARY | 2024-08-14 17:03 | XMS_ITS | Clinical Summary ---
Author Organization [facility] Address [address] [facility] [place] [address] Care Team Providers Care Die Baker Name Role Phone Jarod Hernandez MD Primary Care Provider [phone] Source Comments [facility],non-owned Affiliates and Associated Physician Practices is amultiple site organization consisting of ambulatory clinics and hospital sitesin [place], [place], [place] and [place]. This disclosure is being madepursuant to the Care Everywhere program and may not contain all information available regarding this patient. Last updated 17.[facility] Allergies Active Allergy Reactions Criticality Noted Date [...] on file Legal Sex Female 5:53 PM STOCK DEALER Gender Identity Not on file Sexual Orientation Not on file Last Filed Vital Signs Vital Sign Reading Time Taken Comments Blood Pressure 103/76 05/31/2023 10:50 AM STOCK DEALER Pulse 109 05/31/2023 10:50 AM STOCK DEALER Temperature 36.7 C (98.1 F) 05/31/2023 10:50 AM STOCK DEALER Respiratory Rate 14 11/18/2015 10:51 AM CDT Oxygen Saturation 89% 05/31/2023 10:50 AM STOCK DEALER Inhaled Oxygen Concentration - - Weight 58.1 kg (128 lb) 05/31/2023 10:50 AM STOCK DEALER Height 165.1 cm (5' 5 ) 05/31/2023 10:50 AM STOCK DEALER Body Mass Index 21.3 05/31/2023 10:50 AM STOCK DEALER Plan of Treatment Health Maintenance Due Date [...] Payer (Ef fective 2009-Present) Name:Jen Harrell Member ID:[id number] Relation to Subscriber:Self Name:Jen Harrell Subscriber ID:[id number] Payer ID:Not on file Type:HMO Address: [address] [employer] Member Subscriber Plan / Payer (Ef fective for All Dates) Name:Jen Harrell Member ID:[id number] Relation to Subscriber:Self Name:Jen Harrell Subscriber ID:[id number] Payer ID:Not on file Type:O Address: [address] SELF PAY NO INSURANCE Member Subscriber Plan / Payer (Ef fective for All Dates) Name:Jen Harrell Member ID:Not on file Relation to Subscriber:Not on file Name:JEN HARRELL Subscriber ID:Not on file Address: [place] [address] Payer ID:Not on file Group ID:Not on file Type:Self Pay Address: [place], [place] Care Teams Die Baker Relationship Specialty Start Date End Date Jarod Hernandez MD [address] [place] [address] PCP - General 07/25/15
== END 2024-08-14 17:00 | disposition home or self-care (01) ==
LOC: CHSLAB 17:01
PROVIDERS: PCP Family Medicine; Visit Provider Internal Medicine Infectious Disease
DX: R91.8 Other nonspecific abnormal finding of lung field (principal); A31.0 Pulmonary mycobacterial infection
CPT/HCPCS: 87015; 87116; 87206

== ENCOUNTER 2024-10-21 08:17 | Emergency (ER) | payer OTHER, SELFPAY ==
[2024-10-21] VITALS (7 sets, daily range): BP systolic 123–152; BP diastolic 59–82; PULSE 75–98; RESP 16–20; TEMP 36.6; O2SAT 93–96
--- OUTSIDE RECORDS SUMMARY | 2024-10-21 08:18 | XMS_ITS | Referral Summary ---
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 08/09/2024 Documentation [facility] Pulmonology [address] [place] [address] Damaris Mathias RN from Last 3 Months Allergies Active Allergy [...] 1 hour prior 3 tablet 5 Active Additional Information Patient not taking.Reported on 08/30/2024 diphenhydrAMINE (BENADRYL) 50 mg capsule Take 50mg tablet one hour prior to procedure 1 capsule 5 Active Additional Information Patient not taking.Reported on 08/30/2024 Trelegy Ellipta 100-62.5-25 mcg inhaler 1 INHALED DAILY RINSE AND SPIT 5 Active Active Problems Problem Noted Date [...] on file Legal Sex Female 2:18 PM FORESTRY AIDE Gender Identity Not on file Sexual Orientation Not on file Last Filed Vital Signs Vital Sign Reading Time Taken Comments Blood Pressure 146/88 08/30/2024 3:48 PM CDT Pulse 102 08/30/2024 3:48 PM CDT Temperature 36.3 C (97.4 F) 06/28/2024 2:06 PM CDT Respiratory Rate 18 08/30/2024 3:48 PM CDT Oxygen Saturation 94% 08/30/2024 3:48 PM CDT Inhaled Oxygen Concentration - - Weight 63.5 kg (140 lb) 08/30/2024 3:48 PM CDT Height 165.1 cm (5' 5) 08/30/2024 3:48 PM CDT Body Mass Index 23.3 08/30/2024 3:48 PM CDT Plan of Treatment Not on file Insurance [facility] [id number] Care Teams Carpenter Prototype Relationship Specialty Start Date End Date Jarod Hernandez MD [address] [place] [address] PCP - General Family Medicine 03/20/24
--- OUTSIDE RECORDS SUMMARY | 2024-10-21 08:19 | XMS_ITS | Clinical Summary ---
Author Organization [facility] Address [address] [place] [address] Care Team Providers Care Security Installer Name Role Phone Jarod Hernandez MD Primary Care Provider [phone] Raymon Conway MD Unavailable [phone] Mari Guajardo PA-C Unavailable [phone] Allergies Active Allergy Reactions Criticality Noted [...] Date Diagnosed Date Atrial fibrillation with RVR ([facility]/HCC [facility]) 0 06/03/2023 Pneumonia 06/02/2023 Encounters Date Type Department Care Team Description 08/14/2024 Orders Only [facility] [address] [place] [address] Raymon Conway MD from Last 3 Months Social History Tobacco Use Types Packs/Day Years [...] materials from doctor or pharmacy Never 07/19/2023 [facility] Utilities Answer Date Recorded In the past 12 months has th e [employer], gas, oil, or water [employer] threatened to shut off services in your [...] 10:01 AM CDT Height 165.1 cm (5' 5) 08/10/2023 10:01 AM CDT Body Mass Index 19.97 08/10/2023 10:01 AM CDT Plan of Treatment Health Maintenance Due [...] of home safety measures Lifestyle No Noemi Rosa, RN Safety Patient/family will have appropriate support at home upon discharge Lifestyle Noemi Machado, RN Insurance MEDICARE PART A [facility] Advance Directives * Full Code (Latest Code Status on File) Date Activated Date Inactivated Comments 07/07/2023 7:48 AM * Full Code Date Activated Date Inactivated Comments 06/07/2023 7:45 AM 06/23/2023 7:20 PM Care Teams Security Installer Relationship Specialty Start Date End Date Jarod Hernandez MD [address] [place] [address] PCP - General FAMILY PRACTICE 06/03/23 Raymon Conway MD [address] [place] [address] Consulting Physician CLINICAL CARDIAC ELECTROPHYSIOLOGY 08/09/23 Mari Guajardo PA-C [address] [place] [address] Referring Physician PHYSICIAN MANUFACTURING ENGINEER CHIEF 02/13/24
--- OUTSIDE RECORDS SUMMARY | 2024-10-21 08:19 | XMS_ITS | Encounter Summary ---
Author Organization [facility] Address [facility] [place] [address] Care Team Providers Care Combination Welder Apprentice Name Role Phone Jarod Hernandez MD Primary Care Provider [phone] Raymon Conway MD Unavailable [phone] Mari Guajardo PA-C Unavailable [phone] Encounter Details Date Type Department Care Team (Late st Contact Info) Description 06/27/2023 Hospital Follow-up Call [facility] [address] [place] [address] Cassandra Medina, RN Social History [...] the past 12 months has th e [employer], gas, oil, or water company threatened to [...] place to sleep or slept in a snf (including now)? No 06/05/2023 Comments Unknown Sex and Gender Information Value Date Recorded Sex Assigned at Not on file Legal Sex Female 1:23 AM CDT Gender Identity Not on file Sexual Orientation Not on file documented as of this encounter Functional Status * Are you deaf or do you have serious difficulty hearing Answer Date of Assessment Author Status No 06/02/2023 9:30 PM HALVER MACHINE OPERATOR Anita Chang, R N Active * Are you blind or do you have serious difficulty seeing, even when wearing glasses? Answer Date of Assessment Author Status No 06/02/2023 9:30 PM HALVER MACHINE OPERATOR Anita Chang, R N Active * Do you have serious difficulty walking or climbing stairs? Answer Date of Assessment Author Status Yes 06/02/2023 9:30 PM HALVER MACHINE OPERATOR Anita Chang, R N Active * Do you have difficulty dressing or bathing? Answer Date of Assessment Author Status Yes 06/02/2023 9:30 PM HALVER MACHINE OPERATOR Anita Cahng, R N Active * Because of a physical, mental, or emotional condition, do you have difficulty doing errands alone such as visiting a doctor's office or shopping? Answer Date of Assessment Author Status Yes 06/02/2023 9:30 PM HALVER MACHINE OPERATOR Anita Chang, R N Active documented as of this encounter Mental Status * Because of a physical, mental, or emotional condition, do you have serious difficulty concentrating, remembering, or making decisions? Answer Entry Date Author Status No 06/02/2023 9:30 PM HALVER MACHINE OPERATOR Anita Chang, R N Active documented in this encounter Plan of Treatment Not on file documented as of this encounter Goals Goal Patient Goal Type Associated Problems Recent Progress Patient-Stated? Author Safety - demonstrates understanding of home safety measures Lifestyle Noemi Machado RN Safety Patient/family will have appropriate support at home upon discharge Lifestyle Noemi Machado RN documented as of this encounter Visit Diagnoses Not on filedocumented in this encounter Care Teams Combination Welder Apprentice Relationship Specialty Start Date End Date Jarod Hernandez MD [address] [place] [address] PCP - General FAMILY PRACTICE 06/03/23 Raymon Conway MD [address] [place] [address] Consulting Physician CLINICAL CARDIAC ELECTROPHYSIOLOGY 08/09/23 Mari Guajardo PA-C [address] [place] [address] Referring Physician PHYSICIAN DOCK OR PIER LABORER 02/13/24 documented as of this encounter
--- OUTSIDE RECORDS SUMMARY | 2024-10-21 08:19 | XMS_ITS | Clinical Summary ---
Author Organization [facility] Address [address] [facility] [place] [address] Care Team Providers Care Hoisting Engineer Pile Driving Name Role Phone Jarod Hernandez MD Primary Care Provider [phone] Source Comments [facility],non-owned Affiliates and Associated Physician Practices is amultiple site organization consisting of ambulatory clinics and hospital sitesin [place], [place], [place] and [place]. This disclosure is being madepursuant to the Care Everywhere program and may not contain all information available regarding this patient. Last updated 17.[facility] Allergies Active Allergy Reactions Criticality Noted Date [...] on file Legal Sex Female 5:53 PM AIR VALUE TESTER Gender Identity Not on file Sexual Orientation Not on file Last Filed Vital Signs Vital Sign Reading Time Taken Comments Blood Pressure 103/76 05/31/2023 10:50 AM AIR VALUE TESTER Pulse 109 05/31/2023 10:50 AM AIR VALUE TESTER Temperature 36.7 C (98.1 F) 05/31/2023 10:50 AM AIR VALUE TESTER Respiratory Rate 14 11/18/2015 10:51 AM CDT Oxygen Saturation 89% 05/31/2023 10:50 AM AIR VALUE TESTER Inhaled Oxygen Concentration - - Weight 58.1 kg (128 lb) 05/31/2023 10:50 AM AIR VALUE TESTER Height 165.1 cm (5' 5) 05/31/2023 10:50 AM AIR VALUE TESTER Body Mass Index 21.3 05/31/2023 10:50 AM AIR VALUE TESTER Plan of Treatment Health Maintenance Due Date [...] season) 2023 DEPRESSION SCREENING 04/04/2024 INFLUENZA VACCINE (#1) 2024 9, 01/04/2018 HIB VACCINE Aged Out No longer [...] Payer (Ef fective 2009-Present) Name:Jen Harrell Member ID:[id number] Relation to Subscriber:Self Name:Jen Harrell Subscriber ID:[id number] Payer ID:Not on file Type:HMO Address: [address] [employer] Member Subscriber Plan / Payer (Ef fective for All Dates) Name:Jen Harrell Member ID:[id number] Relation to Subscriber:Self Name:Jen Harrell Subscriber ID:[id number] Payer ID:Not on file Type:O Address: [address] SELF PAY NO INSURANCE Member Subscriber Plan / Payer (Ef fective for All Dates) Name:Jen Harrell Member ID:Not on file Relation to Subscriber:Not on file Name:JEN HARRELL Subscriber ID:Not on file Address: [address] [place] [address] Payer ID:Not on file Group ID:Not on file Type:Self Pay Address: [place], [place] Care Teams Hoisting Engineer Pile Driving Relationship Specialty Start Date End Date Jarod Hernandez MD [address] [place] [address] PCP - General 07/25/15
--- OUTSIDE RECORDS SUMMARY | 2024-10-21 08:19 | XMS_ITS | Clinical Summary ---
Author Organization [facility] Address [address] [place] [address] Care Team Providers Care Septic Technician Name Role Phone Jarod Hernandez MD Primary Care Provider [phone] Allergies Active Allergy Reactions Criticality Noted Date Comments Iodine Rash Low 06/02/2023 Medications fluticasone-um eclidinium-xi anterol (Trelegy Ellipta) 100-62.5-25 mcg Disk with Device Take 1 Puff by inhalation daily. Active albuterol sulfate HFA 90 mcg/actuation aerosol inhaler Take 2 Puffs by inhalation see administration instructions. 3 Active Active Problems No known active problems Encounters Date Type Department Care Team Description 10/17/2024 External Device Data ST[facility] ABSTRACTION Provider, Abstract 10/16/2024 External Device Data [facility] ABSTRACTION Provider, Abstract 10/15/2024 Orders Only [facility] Oncology and Hematology - [facility] [address] [place] [address] Zaki Leon MD Hereditary hemochromatosis 09/27/2024 Orders Only [facility]ology - [facility] [address] [place] [address] Zaki Leon MD 09/25/2024 External Device Data [facility] ABSTRACTION Provider, Abstract 09/24/2024 Orders Only [facility] Hematology - [facility] [address] [place] [address] Zaki Leon MD Hereditary hemochromatosis 09/18/2024 External Device Data ST[facility] ABSTRACTION Provider, Abstract 09/07/2024 Orders Only [facility]cology [facility] Hematology - Kin [address] [place] [address] Zaki Leon MD 09/03/2024 Orders Only [facility]ology - Kin [address] [place] [address] Zaki Leon MD Hereditary hemochromatosis 08/29/2024 2:15 PM CDT Office Visit [facility] - [facility] [address] [place] [address] Zaki Leon MD Hereditary hemochromatosis (Primary Dx); Acute deep vein thrombosis (DVT) of distal vein of left lower extremity (CMS/HCC) 08/28/2024 External Device Data ST[facility] ABSTRACTION Provider, Abstract 08/28/2024 Orders Only [facility] Hematology - [facility] [address] [place] [address] Zaki Leon MD 08/23/2024 External Device Data ST[facility] ABSTRACTION Provider, Abstract 08/22/2024 External Device Data [facility] ABSTRACTION Provider, Abstract 08/22/2024 External Device Data ST[facility] ABSTRACTION Provider, Abstract 08/21/2024 External Device Data STL ABSTRACTION Provider, Abstract 08/13/2024 Orders Only [facility] Hematology - [facility] [address] [place] [address] Zaki Leon MD Hereditary hemochromatosis 08/01/2024 Orders Only [facility]ematology - [facility] [address] [place] [address] Zaki Leon MD 07/23/2024 Orders Only [facility] Hematology - [facility] [address] [place] [address] Zaki Leon MD Hereditary hemochromatosis from Last 3 Months Family History Medical [...] Date Smoking Tobacco: Every Day Cigarettes 1 40.9 Started: 11/15/1983 Smokeless Tobacco: Never Tobacco Cessation:Ready [...] Sign Reading Time Taken Comments Blood Pressure 143/86 08/29/2024 2:14 PM CDT Pulse 97 08/29/2024 2:12 PM CDT Temperature 37.1 C (98.8 F) 08/29/2024 2:12 PM CDT Respiratory Rate 15 08/29/2024 2:12 PM CDT Oxygen Saturation 95% 08/29/2024 2:12 PM CDT Inhaled Oxygen Concentration - - Weight 62.3 kg (137 lb 6.4 oz) 08/29/2024 2:12 P M CDT Height 165.1 cm (5' 5) 11/15/2023 2:07 PM CDT Body Mass Index 22.86 11/15/2023 2:07 PM CDT Plan of Treatment Upcoming Encounters Date Type Department Care Team (Late st Contact Info) Description 12/31/2024 3:45 PM CDT Office Visit [facility] Oncology and Hematology - Kin [address] [facility] [address] [place] [address] Zaki Leon MD [address] [facility] [address] [place] [address] Health Maintenance Due Date Last [...] 2011 OSTEOPOROSIS SCREENING 02/02/2016 INFLUENZA VACCINE (#1) 2024 Procedures Procedure Name Priority Date/Time Associated Diagnosis Comments IRON LEVEL Routine 09/26/2024 4:45 PM CDT CBC WITH DIFFERENTIAL Routine 09/26/2024 4:31 PM CDT IRON PANEL Routine 08/22/2024 10:37 AM CDT CBC WITH DIFFERENTIAL Routine 08/22/2024 10:10 AM CDT HOMOCYSTEINE Routine 08/22/2024 8:37 AM CDT CBC MIXED CELL DIFFERENTIAL Routine 07/31/2024 8:20 AM CDT from Last 3 Months Results * IRON LEVEL (09/26/2024 4:45 PM CDT) Blood us Zaki Leon MD CHEMISTRY ORDERABLES Final Resu lt * CBC WITH DIFFERENTIAL (09/26/2024 4:31 PM CDT) Only the most recent of2 resultswithin the time period is included. Blood us Zaki Leon MD HEMATOLOGY ORDERABLES Final Res ult * IRON PANEL (08/22/2024 10:37 AM CDT) Blood us Zaki Leon MD CHEMISTRY ORDERABLES Final Resu lt * HOMOCYSTEINE (08/22/2024 8:37 AM CDT) Blood us Zaki Leon MD CHEMISTRY ORDERABLES Final Resu lt * CBC MIXED CELL DIFFERENTIAL (07/31/2024 8:20 AM CDT) Blood Zaki Leon MD HEMATOLOGY ORDERABLES Final Res ult from Last 3 Months Insurance [facility] [employer] Care Teams Septic Technician Relationship Specialty Start Date End Date Jarod Hernandez MD [address] [place] [phone] PCP - General Family Practice 01/18/19
--- OUTSIDE RECORDS SUMMARY | 2024-10-21 08:19 | XMS_ITS ---
Author Organization Unknown Medications Medication Instructions Effective Dates (start - stop) Status thiamine 100 MG Oral Tablet [id number] :00:00Z - Completed apixaban 5 MG Oral Tablet [Eliquis] 00:00:00Z - Completed Microencapsulated potassium chloride 20 MEQ Extended Release Oral Tablet [Klor-Con] - Completed apixaban 5 MG Oral Tablet [Eliquis] 00:00:00Z - Completed metoprolol tartrate 25 MG Or al Tablet - Completed magnesium oxide 400 MG Oral Tablet 04-11T:00:00Z - Completed - - Compl eted prednisone 10 MG Oral Tablet [id number] 0:00:00Z - Completed naltrexone hydrochloride 50 MG Oral Tablet - Completed levofloxacin 750 MG Oral Tablet 2023-06-05 0T00:00:00Z - Completed spironolactone 25 MG Oral Tablet 00:00:00Z - Completed metoprolol tartrate 25 MG Or al Tablet - Completed doxycycline hyclate 100 MG O ral Tablet - Completed loperamide hydrochloride 2 M G Oral Capsule - Completed 24 HR nicotine 0.875 MG/HR Transdermal System - Completed prednisone 20 MG Oral Tablet [id number] 0:00:00Z - Completed linezolid 600 MG Oral Tablet [id number] 0:00:00Z - Completed folic acid 1 MG Oral Tablet [id number] :00:00Z - Completed furosemide 40 MG Oral Tablet [id number] 0:00:00Z - Completed pantoprazole 40 MG Delayed R elease Oral Tablet - Completed spironolactone 25 MG Oral Tablet :00:00Z - Completed ondansetron 8 MG Oral Tablet [id number] 0:00:00Z - Completed albuterol 0.83 MG/ML Inhalat ion Solution - Completed pantoprazole 40 MG Delayed R elease Oral Tablet - Completed 30 ACTUAT fluticasone furoat e 0.1 MG/ACTUAT / umeclidinium 0.0625 MG/ACTUAT / vilanterol 0.025 MG/ACTUAT Dry Powder Inhaler [Trelegy] - Completed naltrexone hydrochloride 50 MG Oral Tablet - Completed - - Compl eted folic acid 1 MG Oral Tablet [id number] :00:00Z - Completed amoxicillin 875 MG / clavula shell 125 MG Oral Tablet - Completed Microencapsulated potassium chloride 20 MEQ Extended Release Oral Tablet [Klor-Con] - Completed folic acid 1 MG Oral Tablet [id number] :00:00Z - Completed thiamine 100 MG Oral Tablet [id number] :00:00Z - Completed amoxicillin 500 MG Oral Capsule 2023-10-04 6T00:00:00Z - Completed 24 HR diltiazem hydrochlorid e 180 MG Extended Release Oral Capsule - Comp leted thiamine 100 MG Oral Tablet [id number] :00:00Z - Completed cyclobenzaprine hydrochlorid e 10 MG Oral Tablet - Completed Patient Care team information Name Category Status Period Participants - - Proposed period not known -
--- OUTSIDE RECORDS SUMMARY | 2024-10-21 08:19 | XMS_ITS | Patient Health Record ---
Author Organization [facility] Address [address] [place], [place] [address] Support Name Relationship Address Phone SHARONJEFFRY Emergency Contact Unknown JEN HARRELL Guarantor Unknown [phone] Reason For Referral No Information Plan Of Treatment No Information Insurance Providers Payer Name Payer Address Payer Phone Subscriber Number Group Number Insured Name Patient Relationship to Insured Coverage Start Date [facility]age End Date [facility] [address] [place], [place] [id number] JEN HARRELL Self - patient is the insured
--- OUTSIDE RECORDS SUMMARY | 2024-10-21 08:19 | XMS_ITS | Clinical Summary ---
Author Organization [facility] Address [address] [place] [address] Care Team Providers Care Care Support Representative Name Role Phone Jarod Hernandez MD [...] Additional Information Patient not taking.Reported on 08/30/2024 Waqas Nieto 100-62.5-25 mcg inhaler 1 INHALED DAILY RINSE AND SPIT Active Active Problems Problem Noted Date Diagnosed [...] Description 08/30/2024 3:45 PM CDT Office Visit [facility] Infectious Disease [address] [facility] [address] [place] [address] Moises Rojas MD Atypical mycobacterium disease (Primary Dx); 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 08/09/2024 Documentation [facility] Pulmonology [address] [facility] [address] [facility] [address] [place] [address] Damaris Mathias RN from Last 3 Months Surgical History Surgery Date Site/Laterality Comments TUBAL LIGATION PLASTIC SURGERY left side of face Social History Tobacco Use Types Packs/Day Years Used Date Smoking Tobacco: Every Day Cigarettes Tobacco Cessation:Ready to Q uit: Not Asked; Counseling Given: Not Answered Comments Unknown Sex and Gender Information Value Date Recorded Sex Assigned at Not on file Legal Sex Female 2:18 PM 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
[2024-10-21] MEDS: SODIUM CHLORIDE 0.9% IV 1,000 ML 999 ML IV CONT (08:37)
[2024-10-21] MEDS: ONDANSETRON INJ 4 MG/2 ML VIAL IV PUSH (08:37)
--- NOTE | 2024-10-21 08:37 | PC.NURSE ---
covid culture sent to lab
[2024-10-21 08:43] LABS: Hematocrit 45.1 % (35.0-42.0); Hemoglobin 15.3 g/dL (11.7-13.8); Immature Granulocyte Percent A 0.1 % (0.0-0.0); Lymphocytes Absolute Auto 3.09 K/mm3 (1.10-4.50); Mean Corpuscular HGB Conc 33.9 g/dL (32-36); Mean Corpuscular Hemoglobin 31.2 pg (27.0-31.0); Mean Corpuscular Volume 92.0 fL (78.0-102.0); Nucleated Red Blood Cells Absolute Auto 0.00 K/mm3 (0.00-0.00); Nucleated Red Blood Cells Perc 0.0 % (0-0.0); Platelet Count Result 164 K/mm3 (150-420); Red Blood Count 4.90 M/mm3 (4.20-5.40); White Blood Count 7.6 K/mm3 (4.8-10.8)
[2024-10-21 08:54] LABS: Alanine Aminotransferase 18 U/L (6-35); Albumin Level 3.7 g/dL (3.5-5.1); Alkaline Phosphatase 122 U/L (38-126); Anion Gap 8 mmol/L (4-12); Aspartate Amino Transferase 55 U/L (14-36); Bilirubin,Total 1.3 mg/dL (0.2-1.3); Blood Urea Nitrogen 21 mg/dL (7-17); Calcium 8.6 mg/dL (8.4-10.2); Carbon Dioxide 27 mmol/L (22-30); Chloride 100 mmol/L (98-107); Estimated CRCL calculation 65 ml/min; Estimated Glomerular Filt Rate > 60; Glucose 83 mg/dL (65-110); Lipase 107 U/L (23-300); Osmolality Calculated 282 mOsm/kg (285-295); Potassium 3.7 mmol/L (3.4-5.0); Sodium 135 mmol/L (137-145); Total Protein 7.0 g/dL (6.3-8.2)
--- OUTSIDE RECORDS SUMMARY | 2024-10-21 09:16 | XMS_ITS | Encounter Summary ---
Author Organization [facility] Address [place] [address] Care Team Providers Care Balance Assembler Name Role Phone Jarod Hernandez MD Primary Care Provider [phone] Raymon Conway MD Unavailable [phone] Mari Guajardo PA-C Unavailable [phone] Encounter Details Date Type Department Care Team (Late st Contact Info) Description 06/27/2023 Hospital Follow-up Call [facility] Cardiovascular Care Unit [address] [place] [address] Cassandra Medina, RN Social History [...] the past 12 months has th e [employer], gas, oil, or water company threatened to [...] place to sleep or slept in a chcf (including now)? No 06/05/2023 Comments Unknown Sex and Gender Information Value Date Recorded Sex Assigned at Not on file Legal Sex Female 1:23 AM CDT Gender Identity Not on file Sexual Orientation Not on file documented as of this encounter Functional Status * Are you deaf or do you have serious difficulty hearing Answer Date of Assessment Author Status No 06/02/2023 9:30 PM LIME VAT TENDER Anita Chang, R N Active * Are you blind or do you have serious difficulty seeing, even when wearing glasses? Answer Date of Assessment Author Status No 06/02/2023 9:30 PM LIME VAT TENDER Anita Chang, R N Active * Do you have serious difficulty walking or climbing stairs? Answer Date of Assessment Author Status Yes 06/02/2023 9:30 PM LIME VAT TENDER Anita Chang, R N Active * Do you have difficulty dressing or bathing? Answer Date of Assessment Author Status Yes 06/02/2023 9:30 PM LIME VAT TENDER Anita Chang, R N Active * Because of a physical, mental, or emotional condition, do you have difficulty doing errands alone such as visiting a doctor's office or shopping? Answer Date of Assessment Author Status Yes 06/02/2023 9:30 PM LIME VAT TENDER Anita Chang, R N Active documented as of this encounter Mental Status * Because of a physical, mental, or emotional condition, do you have serious difficulty concentrating, remembering, or making decisions? Answer Entry Date Author Status No 06/02/2023 9:30 PM LIME VAT TENDER Anita Chang, R N Active documented in [...] on filedocumented in this encounter Care Teams Balance Assembler Relationship Specialty Start Date End Date Jarod Hernandez MD [address] [place] [address] PCP - General FAMILY PRACTICE 06/03/23 Raymon Conway MD [address] [place] [address] Consulting Physician CLINICAL CARDIAC ELECTROPHYSIOLOGY 08/09/23 Mari Guajardo PA-C [address] [place] [address] Referring Physician PHYSICIAN FISH HATCHERY ASSISTANT 02/13/24 documented as of this encounter
--- OUTSIDE RECORDS SUMMARY | 2024-10-21 09:16 | XMS_ITS | Clinical Summary ---
Author Organization [facility] Address [address] [place] [address] Care Team Providers Care Fire Hazard Inspector Name Role Phone Jarod Hernandez MD Primary Care Provider [phone] Source Comments [facility],non-owned Affiliates and Associated Physician Practices is amultiple site organization consisting of ambulatory clinics and hospital sitesin [place], [place], [place] and [place]. This disclosure is being madepursuant to the Care Everywhere program and may not contain all information available regarding this patient. Last updated 17.[facility] Allergies Active Allergy Reactions Criticality Noted Date [...] on file Legal Sex Female 5:53 PM IDENTIFICATION OFFICER Gender Identity Not on file Sexual Orientation Not on file Last Filed Vital Signs Vital Sign Reading Time Taken Comments Blood Pressure 103/76 05/31/2023 10:50 AM IDENTIFICATION OFFICER Pulse 109 05/31/2023 10:50 AM IDENTIFICATION OFFICER Temperature 36.7 C (98.1 F) 05/31/2023 10:50 AM IDENTIFICATION OFFICER Respiratory Rate 14 11/18/2015 10:51 AM CDT Oxygen Saturation 89% 05/31/2023 10:50 AM IDENTIFICATION OFFICER Inhaled Oxygen Concentration - - Weight 58.1 kg (128 lb) 05/31/2023 10:50 AM IDENTIFICATION OFFICER Height 165.1 cm (5' 5) 05/31/2023 10:50 AM IDENTIFICATION OFFICER Body Mass Index 21.3 05/31/2023 10:50 AM IDENTIFICATION OFFICER Plan of Treatment Health Maintenance Due Date [...] Payer (Ef fective 2009-Present) Name:Jen Harrell Member ID:[id number] Relation to Subscriber:Self Name:Jen Harrell Subscriber ID:[id number] Payer ID:Not on file Type:HMO Address: [address] [employer] Member Subscriber Plan / Payer (Ef fective for All Dates) Name:Jen Harrell Member ID:[id number] Relation to Subscriber:Self Name:Jen Harrell Subscriber ID:[id number] Payer ID:Not on file Type:O Address: [address] SELF PAY NO INSURANCE Member Subscriber Plan / Payer (Ef fective for All Dates) Name:Jen Harrell Member ID:Not on file Relation to Subscriber:Not on file Name:JEN HARRELL Subscriber ID:Not on file Address: [address] [place] [address] Payer ID:Not on file Group ID:Not on file Type:Self Pay Address: [place], [place] Care Teams Fire Hazard Inspector Relationship Specialty Start Date End Date Jarod Hernandez MD [address] [place] [address] PCP - General 07/25/15
--- OUTSIDE RECORDS SUMMARY | 2024-10-21 09:16 | XMS_ITS | Referral Summary ---
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
--- OUTSIDE RECORDS SUMMARY | 2024-10-21 09:16 | XMS_ITS | Clinical Summary ---
Author Organization [facility] Address [address] [place] [address] Care Team Providers Care Body Rolling Machine Tender Name Role Phone Jarod Hernandez MD Primary Care Provider [phone] Raymon Conway MD Unavailable [phone] Mari Guajardo PA-C Unavailable [phone] Allergies Active Allergy Reactions Criticality Noted [...] Date Diagnosed Date Atrial fibrillation with RVR ([facility]/HCC [facility]) 0 06/03/2023 Pneumonia 06/02/2023 Encounters Date Type Department Care Team Description 08/14/2024 Orders Only [facility] [address] [place] [address] Raymon Conway MD from Last 3 Months [...] materials from doctor or pharmacy Never 07/19/2023 [facility] Utilities Answer Date Recorded In the past 12 months has th e [employer], gas, oil, or water [employer] threatened to shut off services in your [...] place to sleep or slept in a penitentiary (including now)? No 06/05/2023 Comments Unknown Sex [...] Noemi Machado, RN Insurance MEDICARE PART A [employer] OPEN ACCESS [facility] Advance Directives * Full Code (Latest Code Status on File) Date Activated Date Inactivated Comments 07/07/2023 7:48 AM * Full Code Date Activated Date Inactivated Comments 06/07/2023 7:45 AM 06/23/2023 7:20 PM Care Teams Body Rolling Machine Tender Relationship Specialty Start Date End Date Jarod Hernandez MD [address] [place] [address] PCP - General FAMILY PRACTICE 06/03/23 Raymon Conway MD [address] [place] [address] Consulting Physician CLINICAL CARDIAC ELECTROPHYSIOLOGY 08/09/23 Mari Guajardo PA-C [address] [place] [address] Referring Physician PHYSICIAN DIGITAL MARKETING OFFICER 02/13/24
--- OUTSIDE RECORDS SUMMARY | 2024-10-21 09:16 | XMS_ITS ---
Author Organization Unknown Medications Medication Instructions Effective Dates (start - stop) Status thiamine 100 MG Oral Tablet [id number] :00:00Z - Completed apixaban 5 MG Oral Tablet [Eliquis] 00:00:00Z - Completed Microencapsulated potassium chloride 20 MEQ Extended Release Oral Tablet [Klor-Con] - Completed apixaban 5 MG Oral Tablet [Eliquis] 00:00:00Z - Completed metoprolol tartrate 25 MG Or al Tablet - Completed magnesium oxide 400 MG Oral Tablet 04-11T:00:00Z - Completed - - Compl eted prednisone 10 MG Oral Tablet [id number] 0:00:00Z - Completed naltrexone hydrochloride 50 MG [...] - Completed prednisone 20 MG Oral Tablet [id number] 0:00:00Z - Completed linezolid 600 MG Oral Tablet [id number] 0:00:00Z - Completed folic acid 1 MG Oral Tablet [id number] :00:00Z - Completed furosemide 40 MG Oral Tablet [id number] 0:00:00Z - Completed pantoprazole 40 MG Delayed R elease Oral Tablet - Completed spironolactone 25 MG Oral Tablet :00:00Z - Completed ondansetron 8 MG Oral Tablet [id number] 0:00:00Z - Completed albuterol 0.83 MG/ML Inhalat ion Solution - Completed pantoprazole 40 MG Delayed R elease Oral Tablet - Completed 30 ACTUAT fluticasone furoat e 0.1 MG/ACTUAT / umeclidinium 0.0625 MG/ACTUAT / vilanterol 0.025 MG/ACTUAT Dry Powder Inhaler [Trelegy] - Completed naltrexone hydrochloride 50 MG Oral Tablet - Completed - - Compl eted folic acid 1 MG Oral Tablet [id number] :00:00Z - Completed amoxicillin 875 MG / clavula shell 125 MG Oral Tablet - Completed Microencapsulated potassium chloride 20 MEQ Extended Release Oral Tablet [Klor-Con] - Completed folic acid 1 MG Oral Tablet [id number] :00:00Z - Completed thiamine 100 MG Oral Tablet [id number] :00:00Z - Completed amoxicillin 500 MG Oral Capsule 2023-10-04 6T00:00:00Z - Completed 24 HR diltiazem hydrochlorid e 180 MG Extended Release Oral Capsule - Comp leted thiamine 100 MG Oral Tablet [id number] :00:00Z - Completed cyclobenzaprine hydrochlorid e 10 MG Oral Tablet - Completed Patient Care team information Name Category Status Period Participants - - Proposed period not known -
--- OUTSIDE RECORDS SUMMARY | 2024-10-21 09:16 | XMS_ITS | Clinical Summary ---
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 08/09/2024 Documentation [facility] Pulmonology [address] [place] [address] Damaris Mathias RN from Last 3 Months [...] on file Legal Sex Female 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
--- OUTSIDE RECORDS SUMMARY | 2024-10-21 09:16 | XMS_ITS | Clinical Summary ---
Author Organization [facility] Address [address] [place] [address] Care Team Providers Care Director Mobile Name Role Phone Jarod Hernandez MD Primary Care Provider [phone] Allergies Active Allergy Reactions Criticality Noted Date [...] STL ABSTRACTION Provider, Abstract 10/15/2024 Orders Only [facility] Oncology and Hematology - [address] [place] [address] Zaki Leon MD Hereditary hemochromatosis 09/27/2024 Orders Only [facility] Oncology and Hematology - [address] [place] [address] Zaki Leon MD 09/25/2024 External Device Data STL ABSTRACTION Provider, Abstract 09/24/2024 Orders Only [facility] Oncology and Hematology - [address] [place] [address] Zaki Leon MD Hereditary hemochromatosis 09/18/2024 External Device Data STL ABSTRACTION Provider, Abstract 09/07/2024 Orders Only [facility] Oncology and Hematology - [address] [place] [address] Zaki Leon MD 09/03/2024 Orders Only [facility] Oncology and Hematology - [address] [place] [address] Zaki Leon MD Hereditary hemochromatosis 08/29/2024 2:15 PM CDT Office Visit [facility] On[facility] and Hematology - [address] [place] [address] Zaki Leon MD Hereditary hemochromatosis (Primary Dx); Acute deep vein thrombosis (DVT) of distal vein of left lower extremity (CMS/HCC) 08/28/2024 External Device Data STL ABSTRACTION Provider, Abstract 08/28/2024 Orders Only [facility] Oncology and Hematology - [address] [place] [address] Zaki Leon MD 08/23/2024 External Device Data STL ABSTRACTION Provider, Abstract 08/22/2024 External Device Data STL ABSTRACTION Provider, Abstract 08/22/2024 External Device Data STL ABSTRACTION Provider, Abstract 08/21/2024 External Device Data STL ABSTRACTION Provider, Abstract 08/13/2024 Orders Only [facility] Oncology and Hematology - [address] [place] [address] Zaki Leon MD Hereditary hemochromatosis 08/01/2024 Orders Only [facility] Oncology and Hematology - [address] [place] [address] Zaki Leon MD 07/23/2024 Orders Only [facility] Oncology and Hematology - [address] [place] [address] Zaki Leon MD Hereditary hemochromatosis [...] Description 12/31/2024 3:45 PM CDT Office Visit [facility] Oncology and Hematology - Kin [address] [facility] [address] [place] [address] Zaki Leon MD [address] [facility] [address] [place] [address] Health Maintenance Due Date Last [...] Res ult from Last 3 Months Insurance [facility] [employer] Care Teams Director Mobile Relationship Specialty Start Date End Date Jarod Hernandez MD [address] [place] [phone] PCP - General Family Practice 01/18/19
[2024-10-21 09:20] LABS: Influenza A QL RT-PCR Negative (Negative); Influenza B QL RT-PCR Negative (Negative); RSV RNA, RT-PCR Negative (Negative); SARS-CoV-2 RNA PCR Negative (Negative)
--- NOTE | 2024-10-21 09:41 | PC.NURSE ---
Patient ambulatory to the bathroom with steady gait. Patient states her nausea is better.
[2024-10-21 09:52] LABS: Add Urine Microscopic? YES; Appearance Urine Clear (Clear); Glucose Urine UA Negative (Negative); Leukocyte Esterase Ur Trace LEU/UL (Negative); Nitrate Urine Negative (Negative); Specific Grav Ur 1.020 (1.010-1.020)
--- NOTE | 2024-10-21 09:58 | ED_ITS ---
HPI - General Adult General Chief complaint: Upper Respiratory Infection Stated complaint: vomitting Time Seen by Provider: 10/21/24 08:29 Source: patient Mode of arrival: ambulatory Limitations: no limitations History of Present Illness HPI narrative: 74 years old white female came to the ED by private car from home complaining of nausea and vomiting at least 20 times a day for the last 6 days. Patient denies any fever, chills, diarrhea, constipation, abdominal pain, chest pain, shortness of breath Or sick contact. 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 Related Data Home Medications ?Medication ?Instructions ?Recorded ?Confirmed ?Last Taken ?Type aspirin 81 mg tablet,delayed 81 mg PO DAILY 05/16/24 06/14/24 Unknown History release magnesium oxide-magnesium amino cap PO 05/16/24 06/14/24 Unknown History acid chelate 300 mg capsule (Magnesium (oxide/AA chelate)) nystatin 100,000 unit/mL oral 1 ml PO DAILY 05/16/24 06/14/24 Unknown History suspension potassium chloride 20 mEq 20 meq PO BID 05/16/24 06/14/24 Unknown History tablet,extended release (K-Tab) folic acid 1 mg tablet 1 mg PO DAILY 06/14/24 06/14/24 Unknown History mecobalamin (vitamin B12) 500 mcg mcg PO 06/14/24 06/14/24 Unknown History chewable tablet Allergies Allergy/AdvReac Type Severity Reaction Status Date / Time mercury (elemental) Allergy Unknown Verified 10/21/24 08:18 Iodine and Iodide Containing AdvReac Rash Verified 10/21/24 08:18 Produc Review of Systems 2 Review of Systems: All systems reviewed & are unremarkable except as noted in HPI and below PMFSH Past Medical History Medical History Alcohol use Cirrhosis Family history of colon cancer in father Gastritis and duodenitis Elevated ferritin Fatty liver Elevated liver enzymes Early satiety History of bruising easily Family hx of colon cancer Hypertension COPD (chronic obstructive pulmonary disease) Surgical History Surgical History History of tooth extraction H/O colonoscopy with polypectomy H/O tubal ligation S/P tonsillectomy History of colon surgery cecum History of appendectomy Family History Family History Father Colon cancer Mother Heart failure Social History Social History Social History: She lives with a roommate. She is and has 4 children. 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 code status full code Smoking packs per day: 1.5 Smoking cigarettes per day: 30.0 Years smoked: 60 Smoking pack-years: 90.00 Smoking status: Current every day smoker Tobacco type: cigarettes Second hand tobacco smoke exposure: No Alcohol intake: former Drinks per week: 14 Alcohol use details: 5 shots per day Substance use: never Substance use type: does not use Do You Feel Safe in your Home?: Yes Lack of Transportation: YES Lack of Food: Never True Current Housing: I Have Housing Concerned About Future Housing: No Difficulty Paying Gas/Electric Bills: No Difficulty Paying for Meds: No Currently Unemployed: No Education: High School Diploma/GED Difficulty w/ Childcare or Family Care: No Living arrangements: alone Occupation/Education: occupation 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 Gender identity (if verbalized by the patient): Female Spiritual care concerns: No Agree to blood products: Yes Exam 2 Narrative: General appearance: Well-developed, well-nourished Skin: Normal color Head: Normocephalic, nontraumatic Eyes: Clear conjunctiva ENT: Oropharynx normal, ears normal, nose normal Neck: Supple, nontender Chest and respiratory: Airway patent, no respiratory distress, no accessory muscle use, slight diminution of air entry bilaterally Heart: Regular rate/rhythm Abdomen: Soft, nontender, no organomegaly, quiet bowel sounds Vascular: Normal peripheral pulses, normal capillary refill. Musculoskeletal: Normal range of motion, nontender back Neurologic: Alert and oriented ?3, JURY CONSULTANT is normal as tested, no gross motor deficit Course Vital Signs Vital signs: Vital Signs Temperature 36.6 C 10/21/24 08:19 Pulse Rate 98 10/21/24 08:19 Respiratory Rate 20 10/21/24 08:19 Blood Pressure 152/82 H 10/21/24 08:19 Pulse Oximetry 95 10/21/24 08:19 Oxygen Delivery Room Air 10/21/24 08:19 Temperature 36.6 C 10/21/24 08:19 Pulse Rate 98 10/21/24 08:19 Respiratory Rate 20 10/21/24 08:19 Blood Pressure 152/82 H 10/21/24 08:19 Pulse Oximetry 95 10/21/24 08:20 Oxygen Delivery Room Air 10/21/24 08:20 Medical Decision Making MDM Narrative Medical decision making narrative: patient came to the ED with frequent vomiting Vital signs showing blood pressure 152/82 otherwise within normal limit Physical examination showing intermittent coughing, slight diminution of air entry bilaterally otherwise insignificant Differential diagnosis include viral gastroenteritis, dehydration, electrolyte imbalance, urinary tract infection Blood workup today includes CBC, CMP, lipase showed hemoglobin 15.3, secondary to dehydration and smoking otherwise within normal limit Urinalysis showed no evidence of infection Patient tested negative for COVID flu RSV. Diagnosis vomiting Discharged on Zofran, clear liquid diet. the pt was discharged to home.the pt,s condition upon discharge was fair,education was provided to the pt in reference to the final impression,discharge study results,treatment,prognosis and need for follow up . Vital Signs Vital Signs: Vital Signs Temperature 36.6 C 10/21/24 08:19 Pulse Rate 98 10/21/24 08:19 Respiratory Rate 20 10/21/24 08:19 Blood Pressure 152/82 H 10/21/24 08:19 Pulse Oximetry 95 10/21/24 08:19 Oxygen Delivery Room Air 10/21/24 08:19 Temperature 36.6 C 10/21/24 08:19 Pulse Rate 98 10/21/24 08:19 Respiratory Rate 20 10/21/24 08:19 Blood Pressure 152/82 H 10/21/24 08:19 Pulse Oximetry 95 10/21/24 08:20 Oxygen Delivery Room Air 10/21/24 08:20 Lab Data 10/21/24 08:38 10/21/24 08:38 Labs: Lab Results 10/21/24 10/21/24 Range/Units 08:29 08:38 WBC 7.6 (4.8-10.8) K/mm3 RBC 4.90 (4.20-5.40) M/mm3 Hgb 15.3 H (11.7-13.8) g/dL Hct 45.1 H (35.0-42.0) % MCV 92.0 (78.0-102.0) fL MCH 31.2 H (27.0-31.0) pg MCHC 33.9 (32-36) g/dL RDW 15.9 H (11.6-14.4) % Plt Count 164 (150-420) K/mm3 MPV 9.7 (9.2-11.8) fl Immature Gran % (Auto) 0.1 H (0.0-0.0) % Neut % (Auto) 39.7 L (50.0-70.0) % Lymph % (Auto) 40.7 (18.0-42.0) % [place] % (Auto) 12.9 H (2.0-11.0) % Eos % (Auto) 5.7 (1.0-6.0) % Baso % (Auto) 0.9 (0.0-1.0) % Lymph # (Auto) 3.09 (1.10-4.50) K/mm3 [place] # (Auto) 0.98 H (0.10-0.90) K/mm3 Eos # (Auto) 0.43 (0.02-0.50) K/mm3 Baso # (Auto) 0.07 (0.00-0.10) K/mm3 Abs Immat Gran (auto) 0.01 H (0.00-0.00) K/mm3 Absolute Neuts (auto) 3.02 (1.70-7.20) K/mm3 Absolute Nucleated RBC 0.00 (0.00-0.00) K/mm3 Nucleated RBC % 0.0 (0-0.0) % Sodium 135 L (137-145) mmol/L Potassium 3.7 (3.4-5.0) mmol/L Chloride 100 (98-107) mmol/L Carbon Dioxide 27 (22-30) mmol/L Anion Gap 8 (4-12) mmol/L BUN 21 H (7-17) mg/dL Creatinine 0.59 L (0.7-1.0) mg/dL Estim Creat Clear Calc 65 ml/min Estimated GFR > 60 (59 - ) Glucose 83 (65-110) mg/dL Calculated Osmolality 282 L (285-295) mOsm/kg Calcium 8.6 (8.4-10.2) mg/dL Total Bilirubin 1.3 (0.2-1.3) mg/dL AST 55 H (14-36) U/L ALT 18 (6-35) U/L Alkaline Phosphatase 122 (38-126) U/L Total Protein 7.0 (6.3-8.2) g/dL Albumin 3.7 (3.5-5.1) g/dL Lipase 107 (23-300) U/L Urine Color Yellow (Yellow) Urine Appearance Clear (Clear) Urine pH 6.0 (5.0-8.0) Ur Specific [place] 1.020 (1.010-1.020) Urine Protein Negative (Negative) Urine Glucose (UA) Negative (Negative) Urine Ketones Negative (Negative) Ur Blood (Man) Trace-intact H (Negative) Urine Nitrate Negative (Negative) Urine Bilirubin Negative (Negative) Urine Urobilinogen 1.0 (0.2-1.0) mg/dL Leukocyte Esterase Rfl Trace H (Negative) [place]/UL Urine RBC 0-2 (0-2) /hpf Urine WBC Rare (0-3) /hpf Ur Squamous Epith Cells Many H (Few) /hpf Urine Bacteria None seen (None) /hpf Ur Oval Fat Bodies None (None) /lpf Influenza A (RT-PCR) Negative (Negative) Influenza B (RT-PCR) Negative (Negative) RSV (RT-PCR) Negative (Negative) SARS-CoV-2 RNA (RT-PCR) Negative (Negative) Critical Care Time Critical Care Time Critical Care Time: No Discharge Plan Discharge Clinical Impression: Vomiting Patient Disposition: Home Condition: Stable Instructions: Clear Liquid Diet (ED), Gastroenteritis (DC) Additional Instructions: Return if symptoms are worsening , call your family physician for appointment, take Tylenol as as needed for aches and pain, continue home medications. Patient Language: Upper Sorbian Prescriptions: New ondansetron 4 mg tablet,disintegrating 2 mg PO Q4H PRN (Reason: nausea and vomiting) Qty: 10 0RF No Action folic acid 1 mg tablet 1 mg PO DAILY mecobalamin (vitamin B12) 500 mcg tablet,chewable PO benzonatate 200 mg capsule 200 mg PO TID PRN (Reason: cough) Qty: 90 0RF albuterol sulfate 90 mcg/actuation HFA aerosol inhaler 1 - 2 inh inhalation Q4-6H PRN (Reason: shortness of breath or wheezing) Qty: 8.5 2RF Patient Comments: . nystatin 100,000 unit/mL suspension 1 ml PO DAILY Rx Instructions: swish and swallow aspirin 81 mg tablet,delayed release (DR/EC) 81 mg PO DAILY Magnesium (oxide/AA chelate) 300 mg capsule PO potassium chloride [K-Tab] 20 mEq tablet extended release 20 meq PO BID Trelegy Ellipta 100-62.5-25 mcg blister with device 1 inh INHALATION DAILY Qty: 60 11RF Rx Instructions: rinse and spit Follow-up/Referrals: Jarod Hernandez MD [Primary Care Provider] - Stand Alone Forms: Work/School Release IP
== END 2024-10-21 10:18 | disposition home or self-care (01) ==
PROVIDERS: Emergency Provider Emergency Medicine; PCP Family Medicine
DX: R11.10 Vomiting, unspecified (principal); J44.9 Chronic obstructive pulmonary disease, unspecified; I10 Essential (primary) hypertension; F17.210 Nicotine dependence, cigarettes, uncomplicated; Z20.822 Contact with and (suspected) exposure to COVID-19
CPT/HCPCS: 36415; 80053; 81001; 83690; 85025; 87637; 96361; 96374; 99284; J2405; J7030

== ENCOUNTER 2024-10-22 14:20 | Emergency (ER) | payer OTHER, SELFPAY ==
--- NOTE | ~2024-10-22 | CT_ITS ---
EXAMINATION: CT chest abdomen pelvis wo con DATE: 10/22/2024 16:05 INDICATION: abdo pain/cough . TECHNIQUE: Computed tomography (CT) of the chest, abdomen, and pelvis was performed with 100 mL Omnip aque-350 intravenous contrast. Automated exposure control and iterative reconstruction technique were employed. The dose-length product was 338.81 mGy-cm. There was a significant delay in transferring a ll of the images of the study. COMPARISON: CT chest 07/12/2024 FINDINGS: CHEST: Thoracic aorta: No significant dilation. No dissection. Atherosclerotic calcifications. Lung parenchyma and airways: Moderate emphysematous change. Persistent scarring and fibrosis in the r ight upper lobe, with a persistent cavitary lesion that has decreased slightly in size. Subtle depend ent left lower lobe tree-in-bud opacities. Patent airways. Thoracic inlet, axillae and chest wall: No thyroid or soft tissue mass. No axillary lymphadenopathy. Mediastinum: Dilated central airways as can be seen with pulmonary hypertension. Calcified nodes. Heart and pericardium: Normal heart size. No pericardial effusion. Coronary artery calcifications: Moderate. Pleura: No effusion or mass. Thoracic bones: No acute osseous finding in the chest. ABDOMEN/PELVIS: Liver: Normal. Biliary/Gallbladder: Markedly distended gallbladder. No stone detected. No bile duct dilation. Pancreas: No mass or duct dilation. Spleen: Normal. Adrenals:No mass. Kidneys: No suspicious mass, obstructing stone, or hydronephrosis. GI tract: No small or large bowel dilation. Mild wall thickening and loss of haustration in the dista l transverse colon. Moderate wall thickening with mild surrounding inflammatory change in the sigmoid colon. Status post appendectomy. Diverticulosis without diverticulitis. Mesentery/Peritoneum: No ascites, mass, or free air. Retroperitoneum: 9 mm splenic artery aneurysm with heavy calcification. Atherosclerotic calcification s of intra-abdominal arterial vessels. Pelvis: Pelvic organs are within normal limits Soft Tissues: Small uncomplicated fat-containing umbilical and bilateral inguinal hernias. Abdominopelvic bones: No acute osseous finding in the abdomen/pelvis. IMPRESSION: Dependent left lower lobe tree-in-bud opacities may represent atypical infection or aspiration. Slightly decreased size of the right upper lobe cavitary lesion. Marked gallbladder hydrops, without obstructing stone or mass detected. No biliary duct dilation. Con sanitary engineer right upper quadrant ultrasound for further evaluation. 9 mm splenic artery aneurysm. Consider annual surveillance. Distal transverse colon and sigmoid colon wall thickening as can be seen with infectious, inflammator y, or ischemic colitis. Reviewed, dictated and finalized at location K. IMPRESSION: Dependent left lower lobe tree-in-bud opacities may represent atypical infectio n or aspiration. Slightly decreased size of the right upper lobe cavitary lesion. Marked gallbladder hydrops, without obstructing stone or mass detected. No bili josr duct dilation. Consider right upper quadrant ultrasound for further evaluat ion. 9 mm splenic artery aneurysm. Consider annual surveillance. Distal transverse colon and sigmoid colon wall thickening as can be seen with i nfectious, inflammatory, or ischemic colitis.
[2024-10-22 14:20] VITALS: BP 132/78; PULSE 78; RESP 18; TEMP 36.8; O2SAT 95
--- OUTSIDE RECORDS SUMMARY | 2024-10-22 14:59 | XMS_ITS | Patient Health Record ---
Author Organization [facility] Address [address] [place], [place] [id number] Support Name Relationship Address Phone SHARONJEFFRY Emergency Contact Unknown JEN HARRELL Guarantor Unknown [phone] Reason For Referral No Information Plan Of Treatment No Information Insurance Providers Payer Name Payer Address Payer Phone Subscriber Number Group Number Insured Name Patient Relationship to Insured Coverage Start Date Coverage End Date [facility] [address] [place], [place] [id number] JEN HARRELL Self - patient is the insured
--- OUTSIDE RECORDS SUMMARY | 2024-10-22 14:59 | XMS_ITS | Encounter Summary ---
Author Organization [facility] Address [facility]ly [facility] [place] [address] Care Team Providers Care Rn Field Case Manager Name Role Phone Jarod Hernandez MD Primary Care Provider [phone] Raymon Conway MD Unavailable [phone] Mari Guajardo PA-C Unavailable [phone] Encounter Details Date Type Department Care Team (Late st Contact Info) Description 06/27/2023 Hospital Follow-up Call [facility] [address] [place] [address] Cassandra Medina, RN Social History [...] the past 12 months has th e [employer], gas, oil, or water company threatened to [...] Assessment Author Status No 06/02/2023 9:30 PM PSYCHOLOGIST EXPERIMENTAL Anita Chang, R N Active * Are you blind or do you have serious difficulty seeing, even when wearing glasses? Answer Date of Assessment Author Status No 06/02/2023 9:30 PM PSYCHOLOGIST EXPERIMENTAL Anita Chang, R N Active * Do you have serious difficulty walking or climbing stairs? Answer Date of Assessment Author Status Yes 06/02/2023 9:30 PM PSYCHOLOGIST EXPERIMENTAL Anita Chang, R N Active * Do you have difficulty dressing or bathing? Answer Date of Assessment Author Status Yes 06/02/2023 9:30 PM PSYCHOLOGIST EXPERIMENTAL Anita Chang, R N Active * Because of a physical, mental, or emotional condition, do you have difficulty doing errands alone such as visiting a doctor's office or shopping? Answer Date of Assessment Author Status Yes 06/02/2023 9:30 PM PSYCHOLOGIST EXPERIMENTAL Anita Chang, R N Active documented as of this encounter Mental Status * Because of a physical, mental, or emotional condition, do you have serious difficulty concentrating, remembering, or making decisions? Answer Entry Date Author Status No 06/02/2023 9:30 PM PSYCHOLOGIST EXPERIMENTAL Anita Chang, R N Active documented in [...] on filedocumented in this encounter Care Teams Rn Field Case Manager Relationship Specialty Start Date End Date Jarod Hernandez MD [address] [place] [address] PCP - General FAMILY PRACTICE 06/03/23 Raymon Conway MD [address] [place] [address] Consulting Physician CLINICAL CARDIAC ELECTROPHYSIOLOGY 08/09/23 Mari Guajardo PA-C [address] [place] [address] Referring Physician PHYSICIAN VP CUSTOMER DEVELOPMENT 02/13/24 documented as of this encounter
--- OUTSIDE RECORDS SUMMARY | 2024-10-22 14:59 | XMS_ITS | Clinical Summary ---
Author Organization [facility] Address [address] [place] [address] Care Team Providers Care Document Improvement Specialist Name Role Phone Jarod Hernandez MD Primary Care Provider [phone] Raymon Conway MD Unavailable [phone] Mari Guajardo PA-C Unavailable [phone] [...] Date Diagnosed Date Atrial fibrillation with RVR ([facility]) 0 06/03/2023 Pneumonia 06/02/2023 Encounters Date Type Department Care Team Description 08/14/2024 Orders Only [facility] [address] [place] [place] [address] Raymon Conway MD from Last 3 Months [...] materials from doctor or pharmacy Never 07/19/2023 [facility] Utilities Answer Date Recorded In the past 12 months has th e [employer], gas, oil, or water [employer] threatened to shut off services in your [...] Noemi Machado, RN Insurance MEDICARE PART A [employer] [facility] Advance Directives * Full Code (Latest Code Status on File) Date Activated Date Inactivated Comments 07/07/2023 7:48 AM * Full Code Date Activated Date Inactivated Comments 06/07/2023 7:45 AM 06/23/2023 7:20 PM Care Teams Document Improvement Specialist Relationship Specialty Start Date End Date Jarod Hernandez MD [address] [place] [address] PCP - General FAMILY PRACTICE 06/03/23 Raymon Conway MD [address] [place] [id number] Consulting Physician CLINICAL CARDIAC ELECTROPHYSIOLOGY 08/09/23 Mari Guajardo PA-C [address] [place] [id number] Referring Physician PHYSICIAN ENDOSCOPY REGISTERED NURSE 02/13/24
--- OUTSIDE RECORDS SUMMARY | 2024-10-22 14:59 | XMS_ITS | Referral Summary ---
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
--- OUTSIDE RECORDS SUMMARY | 2024-10-22 14:59 | XMS_ITS | Clinical Summary ---
Author Organization [facility] [employer] Address [address] [facility] [place] [address] Care Team Providers Care Cost Clerk Name Role Phone Jarod Hernandez MD Primary Care Provider [phone] Source Comments [facility] [employer],non-owned Affiliates and Associated Physician Practices is amultiple site organization consisting of ambulatory clinics and hospital sitesin [place], [place], [place] and [place]. This disclosure is being madepursuant to the Care Everywhere program and may not contain all information available regarding this patient. Last updated 17.[facility] [employer] Allergies Active Allergy Reactions Criticality Noted Date [...] on file Legal Sex Female 5:53 PM RECORDS MANAGER Gender Identity Not on file Sexual Orientation Not on file Last Filed Vital Signs Vital Sign Reading Time Taken Comments Blood Pressure 103/76 05/31/2023 10:50 AM RECORDS MANAGER Pulse 109 05/31/2023 10:50 AM RECORDS MANAGER Temperature 36.7 C (98.1 F) 05/31/2023 10:50 AM RECORDS MANAGER Respiratory Rate 14 11/18/2015 10:51 AM CDT Oxygen Saturation 89% 05/31/2023 10:50 AM RECORDS MANAGER Inhaled Oxygen Concentration - - Weight 58.1 kg (128 lb) 05/31/2023 10:50 AM RECORDS MANAGER Height 165.1 cm (5' 5) 05/31/2023 10:50 AM RECORDS MANAGER Body Mass Index 21.3 05/31/2023 10:50 AM RECORDS MANAGER Plan of Treatment Health Maintenance Due [...] Payer (Ef fective 2009-Present) Name:Jen Harrell Member ID:[id number] Relation to Subscriber:Self Name:Jen Harrell Subscriber ID:[id number] Payer ID:Not on file Type:HMO Address: [address] [employer] Member Subscriber Plan / Payer (Ef fective for All Dates) Name:Jen Harrell Member ID:[id number] Relation to Subscriber:Self Name:Jen Harrell Subscriber ID:[id number] Payer ID:Not on file Type:O Address: [address] SELF PAY NO INSURANCE Member Subscriber Plan / Payer (Ef fective for All Dates) Name:Jen Harrell Member ID:Not on file Relation to Subscriber:Not on file Name:JEN HARRELL Subscriber ID:Not on file Address: [address] [place] [address] Payer ID:Not on file Group ID:Not on file Type:Self Pay Address: [place], [place] Care Teams Cost Clerk Relationship Specialty Start Date End Date Jarod Hernandez MD [address] [place] [address] PCP - General 07/25/15
--- OUTSIDE RECORDS SUMMARY | 2024-10-22 14:59 | XMS_ITS | Clinical Summary ---
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
--- OUTSIDE RECORDS SUMMARY | 2024-10-22 15:00 | XMS_ITS ---
Author Organization Unknown Medications Medication Instructions Effective Dates (start - stop) Status thiamine 100 MG Oral Tablet [id number] :00:00Z - Completed apixaban 5 MG Oral Tablet [Eliquis] 00:00:00Z - Completed Microencapsulated potassium chloride 20 MEQ Extended Release Oral Tablet [Klor-Con] - Completed apixaban 5 MG Oral Tablet [Eliquis] 00:00:00Z - Completed metoprolol tartrate 25 MG Or al Tablet - Completed magnesium oxide 400 MG Oral Tablet 04-11T:00:00Z - Completed - - Compl eted prednisone 10 MG Oral Tablet [id number] 0:00:00Z - Completed naltrexone hydrochloride 50 MG [...] - Completed prednisone 20 MG Oral Tablet [id number] 0:00:00Z - Completed linezolid 600 MG Oral Tablet [id number] 0:00:00Z - Completed folic acid 1 MG Oral Tablet [id number] :00:00Z - Completed furosemide 40 MG Oral Tablet [id number] 0:00:00Z - Completed pantoprazole 40 MG Delayed R elease Oral Tablet - Completed spironolactone 25 MG Oral Tablet :00:00Z - Completed ondansetron 8 MG Oral Tablet [id number] 0:00:00Z - Completed albuterol 0.83 MG/ML Inhalat ion Solution - Completed pantoprazole 40 MG Delayed R elease Oral Tablet - Completed 30 ACTUAT fluticasone furoat e 0.1 MG/ACTUAT / umeclidinium 0.0625 MG/ACTUAT / vilanterol 0.025 MG/ACTUAT Dry Powder Inhaler [Trelegy] - Completed naltrexone hydrochloride 50 MG Oral Tablet - Completed - - Compl eted folic acid 1 MG Oral Tablet [id number] :00:00Z - Completed amoxicillin 875 MG / clavula shell 125 MG Oral Tablet - Completed Microencapsulated potassium chloride 20 MEQ Extended Release Oral Tablet [Klor-Con] - Completed folic acid 1 MG Oral Tablet [id number] :00:00Z - Completed thiamine 100 MG Oral Tablet [id number] :00:00Z - Completed amoxicillin 500 MG Oral Capsule 2023-10-04 6T00:00:00Z - Completed 24 HR diltiazem hydrochlorid e 180 MG Extended Release Oral Capsule - Comp leted thiamine 100 MG Oral Tablet [id number] :00:00Z - Completed cyclobenzaprine hydrochlorid e 10 MG Oral Tablet - Completed Patient Care team information Name Category Status Period Participants - - Proposed period not known -
--- OUTSIDE RECORDS SUMMARY | 2024-10-22 15:00 | XMS_ITS | Clinical Summary ---
Author Organization [facility] Administrative Offices Address [address] [place] [phone] Care Team Providers Care Hardwood Floor Finisher Name Role Phone Jarod Hernandez MD Primary Care Provider [phone] Allergies Active Allergy Reactions Criticality Noted Date [...] STL ABSTRACTION Provider, Abstract 10/15/2024 Orders Only [facility] Oncology and Hematology - [address] [place] [phone] Zaki Leon MD Hereditary hemochromatosis 09/27/2024 Orders Only [facility] Oncology and Hematology - [address] [place] [address] Zaki Leon MD 09/25/2024 External Device Data STL ABSTRACTION Provider, Abstract 09/24/2024 Orders Only [facility] Oncology and Hematology - [address] [place] [address] Zaki Leon MD Hereditary hemochromatosis 09/18/2024 External Device Data STL ABSTRACTION Provider, Abstract 09/07/2024 Orders Only [facility] Oncology and Hematology - [address] [place] [address] Zaki Leon MD 09/03/2024 Orders Only [facility] Oncology and Hematology - [address] [place] [address] Zaki Leon MD Hereditary hemochromatosis 08/29/2024 2:15 PM CDT Office Visit [facility] Oncology and Hematology - [address] [place] [address] Zaki Leon MD Hereditary hemochromatosis (Primary Dx); Acute deep vein thrombosis (DVT) of distal vein of left lower extremity (CMS/HCC) 08/28/2024 External Device Data STL ABSTRACTION Provider, Abstract 08/28/2024 Orders Only [facility] Oncology and Hematology - [address] [place] [phone] Zaki Leon MD 08/23/2024 External Device Data STL ABSTRACTION Provider, Abstract 08/22/2024 External Device Data STL ABSTRACTION Provider, Abstract 08/22/2024 External Device Data STL ABSTRACTION Provider, Abstract 08/21/2024 External Device Data STL ABSTRACTION Provider, Abstract 08/13/2024 Orders Only [facility] Oncology and Hematology - [address] [place] [address] Zaki Leon MD Hereditary hemochromatosis 08/01/2024 Orders Only [facility] Oncology and Hematology - [address] [place] [address] Zaki Leon MD 07/23/2024 Orders Only [facility] Oncology and Hematology - [address] [place] [address] Zaki Leon MD Hereditary hemochromatosis [...] Description 12/31/2024 3:45 PM CDT Office Visit [facility] Oncology and Hematology - [address] [facility] [address] [place] [address] Zaki Leon MD [address] [facility] [address] [place] [address] Health Maintenance Due Date Last [...] Res ult from Last 3 Months Insurance [facility] BENEFIT PLANS Care Teams Hardwood Floor Finisher Relationship Specialty Start Date End Date Jarod Hernandez MD [address] [place] [phone] PCP - General Family Practice 01/18/19
--- OUTSIDE RECORDS SUMMARY | 2024-10-22 15:06 | XMS_ITS ---
Author Organization Unknown Medications Medication Instructions Effective Dates (start - stop) Status thiamine 100 MG Oral Tablet [id number] :00:00Z - Completed apixaban 5 MG Oral Tablet [Eliquis] 00:00:00Z - Completed Microencapsulated potassium chloride 20 MEQ Extended Release Oral Tablet [Klor-Con] - Completed apixaban 5 MG Oral Tablet [Eliquis] 00:00:00Z - Completed metoprolol tartrate 25 MG Or al Tablet - Completed magnesium oxide 400 MG Oral Tablet 04-11T:00:00Z - Completed - - Compl eted prednisone 10 MG Oral Tablet [id number] 0:00:00Z - Completed naltrexone hydrochloride 50 MG [...] - Completed prednisone 20 MG Oral Tablet [id number] 0:00:00Z - Completed linezolid 600 MG Oral Tablet [id number] 0:00:00Z - Completed folic acid 1 MG Oral Tablet [id number] :00:00Z - Completed furosemide 40 MG Oral Tablet [id number] 0:00:00Z - Completed pantoprazole 40 MG Delayed R elease Oral Tablet - Completed spironolactone 25 MG Oral Tablet :00:00Z - Completed ondansetron 8 MG Oral Tablet [id number] 0:00:00Z - Completed albuterol 0.83 MG/ML Inhalat ion Solution - Completed pantoprazole 40 MG Delayed R elease Oral Tablet - Completed 30 ACTUAT fluticasone furoat e 0.1 MG/ACTUAT / umeclidinium 0.0625 MG/ACTUAT / vilanterol 0.025 MG/ACTUAT Dry Powder Inhaler [Trelegy] - Completed naltrexone hydrochloride 50 MG Oral Tablet - Completed - - Compl eted folic acid 1 MG Oral Tablet [id number] :00:00Z - Completed amoxicillin 875 MG / clavula shell 125 MG Oral Tablet - Completed Microencapsulated potassium chloride 20 MEQ Extended Release Oral Tablet [Klor-Con] - Completed folic acid 1 MG Oral Tablet [id number] :00:00Z - Completed thiamine 100 MG Oral Tablet [id number] :00:00Z - Completed amoxicillin 500 MG Oral Capsule 2023-10-04 6T00:00:00Z - Completed 24 HR diltiazem hydrochlorid e 180 MG Extended Release Oral Capsule - Comp leted thiamine 100 MG Oral Tablet [id number] :00:00Z - Completed cyclobenzaprine hydrochlorid e 10 MG Oral Tablet - Completed Patient Care team information Name Category Status Period Participants - - Proposed period not known -
[2024-10-22 15:20] VITALS: BP 129/70; PULSE 62; RESP 18; O2SAT 96
--- NOTE | 2024-10-22 15:36 | ED.ABDPAIN ---
HPI - Abdominal Pain General Chief Complaint: Abdominal Pain Stated Complaint: abdominal pain Source: patient Mode of arrival: ambulatory Limitations: no limitations History of Present Illness HPI narrative: Patient is a 74-year-old female with abdominal pain and a cough and nausea. She was here earlier this week for a workup that was nonspecific and she was discharged home but did not have a CT scan. Patient having continued abdominal pain. She said she is having difficulty eating food. MD elicited complaint: abdominal pain Pertinent past history: other ( COPD) Onset (ago): week(s) ( 1) Pain Consistency: constant Location: diffuse Severity: moderate Pain scale (0-10): 4 Quality: sharp Radiation: none Migration to: no migration Exacerbating factors: eating Relieving factors: nothing Context: confirms history of similar episodes Associated symptoms: nausea, vomiting and anorexia Treatments prior to arrival: other ( none) Related Data Home Medications ?Medication ?Instructions ?Recorded ?Confirmed ?Last Taken ?Type aspirin 81 mg tablet,delayed 81 mg PO DAILY 05/16/24 10/22/24 Unknown History release folic acid 1 mg tablet 1 mg PO DAILY 06/14/24 10/22/24 Unknown History mecobalamin (vitamin B12) 500 mcg 500 mcg PO DAILY 06/14/24 10/22/24 Unknown History chewable tablet multivitamin (Daily Multi-Vitamin 1 tablet PO DAILY 10/22/24 10/22/24 Unknown History tablet) Allergies Allergy/AdvReac Type Severity Reaction Status Date / Time mercury (elemental) Allergy Unknown Verified 10/22/24 20:22 Iodine and Iodide Containing AdvReac Rash Verified 10/22/24 20:22 Produc Review of Systems Review of Systems: All systems reviewed & are unremarkable except as noted in HPI and below Constitutional: Constitutional: Reports no additional constitutional complaints Eyes: Eyes: Reports no additional eye complaints ENT: Reports system reviewed and no additional complaints, except as documented Cardiovascular: Cardiovascular: Reports no additional cardiovascular complaints Respiratory: Respiratory: Reports no additional respiratory complaints Gastrointestinal: Gastrointestinal: Reports no additional gastrointestinal complaints Genitourinary: Genitourinary: Reports no additional female genitourinary complaints Musculoskeletal: Musculoskeletal: Reports no additional musculoskeletal complaints Integumentary/Breasts: Skin/Breast: Reports system reviewed and no additional complaints, except as docu Neurologic: Reports system reviewed and no additional complaints, except as documented Psychiatric: Psychiatric: Reports no additional psychiatric complaints Endocrine: Endocrine: Reports no additional endocrine complaints Hematologic/Lymphatic: Hematologic/Lymphatic: Reports no additional hematologic/lymphatic complaints Allergic/Immunologic: Allergic/Immunologic: Reports no additional allergic/immunologic complaints [facility] Past Medical History Medical History Alcohol use Cirrhosis Family history of colon cancer in father Gastritis and duodenitis Elevated ferritin Fatty liver Elevated liver enzymes Early satiety History of bruising easily Family hx of colon cancer Hypertension COPD (chronic obstructive pulmonary disease) Surgical History Surgical History History of tooth extraction H/O colonoscopy with polypectomy H/O tubal ligation S/P tonsillectomy History of colon surgery cecum History of appendectomy Family History Family History Father Colon cancer Mother Heart failure Social History Social History Social History: She lives with a roommate. She is and has 4 children. She works for [employer] in [place]. code status full code Smoking packs per day: 1 Smoking cigarettes per day: 20.0 Years smoked: 60 Smoking pack-years: 60.00 Smoking status: Current every day smoker Tobacco type: cigarettes Second hand tobacco smoke exposure: No Alcohol intake: current Drinks per week: 4 Alcohol use details: 5 shots per day Substance use: never Substance use type: does not use Do You Feel Safe in your Home?: Yes Lack of Transportation: No Lack of Food: Never True Current Housing: I Have Housing Concerned About Future Housing: No Difficulty Paying Gas/Electric Bills: No Difficulty Paying for Meds: No Currently Unemployed: No Education: High School Diploma/GED Difficulty w/ Childcare or Family Care: No Living arrangements: alone Occupation/Education: occupation 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/education 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 Gender identity (if verbalized by the patient): Female Spiritual care concerns: Yes Agree to blood products: Yes Exam Const: General: healthy appearing Nutritional Appearance: well nourished Orientation/consciousness: patient oriented x3 HENMT: Head: normal to inspection Ears: external ears normal Face/Nose/Sinus: Normal external nose present Eyes: Conjunctivae: conjunctivae normal Pupils: Equal, round and reactive pupils present EOM: EOMs intact bilaterally Neck: Neck: normal visual inspection Chest: Chest palpation & inspection: normal inspection of the chest Resp: Effort & Inspection: normal respiratory effort and not labored Auscultation: clear to auscultation bilaterally and no crackles Cardio: Rate: regular rate Rhythm: regular rhythm Heart sounds: no murmurs GI: Inspection: non-distended GI Palp: Yes Soft to palpation, Yes Tenderness to palpation present (GI) ( diffuse), Yes Guarding due to palpation present (GI), No Rigid due to palpation, No Hernia present, No Palpable mass present and No Rebound tenderness present Auscultation: normal bowel sounds : General: Yes bladder normal to palpation Back/Spine/Pelvis: Back: no CVA tenderness Skin: General skin exam: normal color Rashes: no rashes Wounds: no wounds Neuro: General: patient oriented x3 and moves all extremities Cranial nerves: Yes Nystagmus not present Extrem: General: normal to inspection Psych: Mental Status: mental status grossly normal Affect: normal affect Attitude: cooperative Course Vital Signs Vital signs: Vital Signs Temperature 36.8 C 10/22/24 14:20 Pulse Rate 78 10/22/24 14:20 Respiratory Rate 18 10/22/24 14:20 Blood Pressure 132/78 10/22/24 14:20 Pulse Oximetry 95 10/22/24 14:20 Oxygen Delivery Room Air 10/22/24 14:20 Temperature 36.9 C 10/22/24 19:34 Pulse Rate 77 10/22/24 19:03 Respiratory Rate 16 10/22/24 19:03 Blood Pressure 155/80 H 10/22/24 19:03 Pulse Oximetry 92 10/22/24 19:03 Oxygen Delivery Room Air 10/22/24 19:03 MDM - Abdominal Pain MDM Narrative Medical decision making narrative: patient is a 74-year-old female with abdominal pain and other GI complaints at this time recurrent. We will do a GI workup to include a CT scan at this time. She is allergic to dye. Lab Data Attestation: I reviewed the patient's lab results. 10/22/24 16:08 10/22/24 16:08 Labs: Lab Results 10/22/24 10/22/24 Range/Units 16:08 19:25 WBC 10.2 (4.8-10.8) K/mm3 RBC 4.98 (4.20-5.40) M/mm3 Hgb 15.7 H (11.7-13.8) g/dL Hct 46.4 H (35.0-42.0) % MCV 93.2 (78.0-102.0) fL MCH 31.5 H (27.0-31.0) pg MCHC 33.8 (32-36) g/dL RDW 15.8 H (11.6-14.4) % Plt Count 171 (150-420) K/mm3 MPV 9.9 (9.2-11.8) fl Immature Gran % (Auto) 0.4 H (0.0-0.0) % Neut % (Auto) 56.5 (50.0-70.0) % Lymph % (Auto) 31.9 (18.0-42.0) % Hunt % (Auto) 7.7 (2.0-11.0) % Eos % (Auto) 3.0 (1.0-6.0) % Baso % (Auto) 0.5 (0.0-1.0) % Lymph # (Auto) 3.27 (1.10-4.50) K/mm3 Hunt # (Auto) 0.79 (0.10-0.90) K/mm3 Eos # (Auto) 0.31 (0.02-0.50) K/mm3 Baso # (Auto) 0.05 (0.00-0.10) K/mm3 Abs Immat Gran (auto) 0.04 H (0.00-0.00) K/mm3 Absolute Neuts (auto) 5.78 (1.70-7.20) K/mm3 Absolute Nucleated RBC 0.00 (0.00-0.00) K/mm3 Nucleated RBC % 0.0 (0-0.0) % PT 12.9 H (9.50-12.1) Seconds INR 1.2 APTT 28.0 (23.9-30.70) Sec Sodium 136 L (137-145) mmol/L Potassium 3.7 (3.4-5.0) mmol/L Chloride 100 (98-107) mmol/L Carbon Dioxide 29 (22-30) mmol/L Anion Gap 7 (4-12) mmol/L BUN 19 H (7-17) mg/dL Creatinine 0.67 L (0.7-1.0) mg/dL Estim Creat Clear Calc Not Reportable Estimated GFR > 60 (59 - ) Glucose 90 (65-110) mg/dL Calculated Osmolality 284 L (285-295) mOsm/kg Lactic Acid 2.5 H 2.3 H (0.4-2.0) mmol/L Calcium 8.4 (8.4-10.2) mg/dL Total Bilirubin 1.2 (0.2-1.3) mg/dL AST 53 H (14-36) U/L ALT 20 (6-35) U/L Alkaline Phosphatase 134 H (38-126) U/L Total Protein 6.9 (6.3-8.2) g/dL Albumin 3.8 (3.5-5.1) g/dL Lipase 96 (23-300) U/L Imaging Data Attestation: I personally reviewed and interpreted this imaging study as follows: Radiologist's impression: ITS Impressions Chest/Abdomen/Pelvis CT 10/22/24 16:37 IMPRESSION: Dependent left lower lobe tree-in-bud opacities may represent atypical infection or aspiration. Slightly decreased size of the right upper lobe cavitary lesion. Marked gallbladder hydrops, without obstructing stone or mass detected. No biliary duct dilation. Consider right upper quadrant ultrasound for further evaluation. 9 mm splenic artery aneurysm. Consider annual surveillance. Distal transverse colon and sigmoid colon wall thickening as can be seen with infectious, inflammatory, or ischemic colitis. 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 Discharge Plan Discharge Clinical Impression: Colitis, Dilated gallbladder Pneumonia Qualifiers: Pneumonia type: due to unspecified organism Laterality: unspecified laterality Lung location: unspecified part of lung Qualified Code(s): J18.9 - Pneumonia, unspecified organism Patient Disposition: Acute Care Hospital Condition: Stable Patient Language: Palestinian Prescriptions: No Action folic acid 1 mg tablet 1 mg PO DAILY mecobalamin (vitamin B12) 500 mcg tablet,chewable 500 mcg PO DAILY albuterol sulfate 90 mcg/actuation HFA aerosol inhaler 1 - 2 inh inhalation Q4-6H PRN (Reason: shortness of breath or wheezing) Qty: 8.5 2RF Patient Comments: . aspirin 81 mg tablet,delayed release (DR/EC) 81 mg PO DAILY multivitamin [Daily Multi-Vitamin] Tablet 1 tablet PO DAILY Trelegy Ellipta 100-62.5-25 mcg blister with device 1 inh INHALATION DAILY Qty: 60 11RF Rx Instructions: rinse and spit Follow-up/Referrals: Jarod Hernandez MD [Primary Care Provider] - Time of Disposition: 18:31
[2024-10-22 16:14] LABS: Hematocrit 46.4 % (35.0-42.0); Hemoglobin 15.7 g/dL (11.7-13.8); Immature Granulocyte Percent A 0.4 % (0.0-0.0); Lymphocytes Absolute Auto 3.27 K/mm3 (1.10-4.50); Mean Corpuscular HGB Conc 33.8 g/dL (32-36); Mean Corpuscular Hemoglobin 31.5 pg (27.0-31.0); Mean Corpuscular Volume 93.2 fL (78.0-102.0); Nucleated Red Blood Cells Absolute Auto 0.00 K/mm3 (0.00-0.00); Nucleated Red Blood Cells Perc 0.0 % (0-0.0); Platelet Count Result 171 K/mm3 (150-420); Red Blood Count 4.98 M/mm3 (4.20-5.40); White Blood Count 10.2 K/mm3 (4.8-10.8)
[2024-10-22 16:20] VITALS: BP 151/60; PULSE 81; RESP 19; O2SAT 94
[2024-10-22 16:26] LABS: Alanine Aminotransferase 20 U/L (6-35); Albumin Level 3.8 g/dL (3.5-5.1); Alkaline Phosphatase 134 U/L (38-126); Anion Gap 7 mmol/L (4-12); Aspartate Amino Transferase 53 U/L (14-36); Bilirubin,Total 1.2 mg/dL (0.2-1.3); Blood Urea Nitrogen 19 mg/dL (7-17); Calcium 8.4 mg/dL (8.4-10.2); Carbon Dioxide 29 mmol/L (22-30); Chloride 100 mmol/L (98-107); Estimated Glomerular Filt Rate > 60; Glucose 90 mg/dL (65-110); Osmolality Calculated 284 mOsm/kg (285-295); Potassium 3.7 mmol/L (3.4-5.0); Sodium 136 mmol/L (137-145); Total Protein 6.9 g/dL (6.3-8.2)
[2024-10-22 16:29] LABS: INR 1.2; Partial Thromboplastin Time 28.0 Sec (23.9-30.70); Prothrombin Time 12.9 Seconds (9.50-12.1)
[2024-10-22 16:59] LABS: Lipase 96 U/L (23-300)
[2024-10-22 17:20] VITALS: BP 131/77; PULSE 80; RESP 20; TEMP 36.3; O2SAT 94
[2024-10-22] MEDS: SODIUM CHLORIDE 0.9% IV 1,000 ML 999 ML IV CONT (18:34)
[2024-10-22] MEDS: PIPERACILLIN/TAZOBACTAM SOD 3.375 GM in SODIUM CHLORIDE 0.9% IV 50 ML 100 ML IVPB (18:35)
[2024-10-22 19:03] VITALS: BP 155/80; PULSE 77; RESP 16; TEMP 36.3; O2SAT 92
[2024-10-22 19:34] VITALS: TEMP 36.9
--- NOTE | 2024-10-25 12:41 | PC.NURSE ---
PRELIMINARY BLOOD CULTURE REPORT; NO GROWTH DETECTED AT THIS TIME.
--- NOTE | 2024-10-26 12:22 | PC.NURSE ---
blood culture, preliminary, no growth
--- NOTE | 2024-10-27 13:01 | PC.NURSE ---
preliminary blood cultures x2 reviewed. no growth to date
--- NOTE | 2024-10-30 13:13 | PC.NURSE ---
FINAL BLOOD CULTURE REPORT; NO GROWTH IN 5 DAYS.
== END 2024-10-22 19:35 | disposition short-term general hospital (02) ==
PROVIDERS: Emergency Provider Emergency Medicine; PCP Family Medicine
DX: K52.9 Noninfective gastroenteritis and colitis, unspecified (principal); K82.8 Other specified diseases of gallbladder; J18.9 Pneumonia, unspecified organism; J44.9 Chronic obstructive pulmonary disease, unspecified; I10 Essential (primary) hypertension; F17.210 Nicotine dependence, cigarettes, uncomplicated; Z79.82 Long term (current) use of aspirin
CPT/HCPCS: 36415; 71250; 74176; 80053; 83605; 83690; 85025; 85610; 85730; 96361; 96365; 99285; J2543; J7030

== ENCOUNTER 2024-10-22 21:08 | Inpatient (IN) | payer OTHER, MEDICARE, SELFPAY ==
--- NOTE | ~2024-10-22 | XR_ITS ---
Exam: Abdomen 1V HISTORY: abdominal pain COMPARISON: Reference is made to a CT examination of the abdomen and pelvis performed 2 days earlier. TECHNIQUE: Supine images of the abdomen FINDINGS: Bowel gas pattern is nonspecific and non-obstructive. Air opacified nondilated small and large bowel are present. There is no free air or deep sulci. No pathologic calcifications are seen. Lung bases are unremarkable. S shaped curvature of the thoracolumbar spine. IMPRESSION: Nonspecific, nonobstructive bowel gas pattern. Reviewed, dictated and finalized at location A.
--- NOTE | ~2024-10-22 | CT_ITS ---
EXAMINATION: CT abdomen pelvis wo con DATE: 10/25/2024 10:29 INDICATION: Colitis. Severe abdominal pain. TECHNIQUE: Computed tomography (CT) of the abdomen and pelvis was performed without intravenous contr ast. The dose-length product was 346.18 mGy-cm. Automated exposure control and iterative reconstructi on technique were employed. COMPARISON: CT dated 10/22/2024. FINDINGS: Small pleural-based nodule right middle lobe partially visualized on image 1 measuring 6 mm . There is dependent atelectasis. There is a 3 mm lingular nodule. Heart size normal. No significant pleural or pericardial effusion. There are calcified granulomas of the spleen. The liver, pancreas, a drenal glands and right kidney are unremarkable. 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 There is mildly dilated small bowel in the left mid abdomen with a ir-fluid levels. No definitive transition site identified. The distal colon is relatively decompresse d. There are surgical changes of the cecum. Colonic diverticulosis of the sigmoid colon with mild fred rounding inflammation, suspicious for acute diverticulitis.. No evidence for perforation or abscess. Mild lower thoracic and moderate lumbar spondylosis. IMPRESSION: 1. Mild acute diverticulitis sigmoid colon. 2: Dilated fluid-filled small bowel left midabdomen with air-fluid levels. No definitive transition site identified. Findings suggest either focal adynamic ileus or partial obstruction. Consider correl ation with small bowel follow-through study. Reviewed, dictated and finalized at location A. IMPRESSION: 1. Mild acute diverticulitis sigmoid colon. 2: Dilated fluid-filled small bowel left midabdomen with air-fluid levels. No definitive transition site identified. Findings suggest either focal adynamic i leus or partial obstruction. Consider correlation with small bowel follow-throu study.
--- OUTSIDE RECORDS SUMMARY | 2024-10-22 20:19 | XMS_ITS | Clinical Summary ---
Author Organization [facility] Administrative Offices Address [address] [place] [address] Care Team Providers Care Paper Plate Machine Tender Name Role Phone Jarod Hernandez MD Primary Care Provider [phone] Allergies Active Allergy Reactions Criticality Noted Date [...] STL ABSTRACTION Provider, Abstract 10/15/2024 Orders Only [facility] Oncology and Hematology - [address] [place] [address] Zaki Leon MD Hereditary hemochromatosis 09/27/2024 Orders Only [facility] Oncology and Hematology - Kin [address] [place] [address] Zaki Leon MD 09/25/2024 External Device Data STL ABSTRACTION Provider, Abstract 09/24/2024 Orders Only [facility] Oncology and Hematology - [address] [place] [address] Zaki Leon MD Hereditary hemochromatosis 09/18/2024 External Device Data STL ABSTRACTION Provider, Abstract 09/07/2024 Orders Only [facility] Oncology and Hematology - [address] [place] [address] Zaki Leon MD 09/03/2024 Orders Only [facility] Oncology and Hematology - [address] [place] [address] Zaki Leon MD Hereditary hemochromatosis 08/29/2024 2:15 PM CDT Office Visit [facility] Oncology and Hematology - [address] [place] [address] Zaki Leon MD Hereditary hemochromatosis (Primary Dx); Acute deep vein thrombosis (DVT) of distal vein of left lower extremity (CMS/HCC) 08/28/2024 External Device Data STL ABSTRACTION Provider, Abstract 08/28/2024 Orders Only [facility] Oncology and Hematology - [address] [place] [address] Zaki Leon MD 08/23/2024 External Device Data STL ABSTRACTION Provider, Abstract 08/22/2024 External Device Data STL ABSTRACTION Provider, Abstract 08/22/2024 External Device Data STL ABSTRACTION Provider, Abstract 08/21/2024 External Device Data STL ABSTRACTION Provider, Abstract 08/13/2024 Orders Only [facility] Oncology and Hematology - [address] [place] [address] Zaki Leon MD Hereditary hemochromatosis 08/01/2024 Orders Only [facility] Oncology and Hematology - [address] [place] [address] Zaki Leon MD 07/23/2024 Orders Only [facility] Oncology and Hematology - [address] [place] [address] Zaki Leon MD Hereditary hemochromatosis [...] Description 12/31/2024 3:45 PM CDT Office Visit [facility] Oncology and Hematology - Kin [address] [facility] [address] [place] [address] Zaki Leon MD [address] [facility] [address] [place] [address] Health Maintenance Due Date Last [...] Res ult from Last [address] [facility] B[employer]EFIT PLANS Care Teams Paper Plate Machine Tender Relationship Specialty Start Date End Date Jarod Hernandez MD [address] [place] [phone] PCP - General Family Practice 01/18/19
--- OUTSIDE RECORDS SUMMARY | 2024-10-22 20:19 | XMS_ITS | Referral Summary ---
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
--- OUTSIDE RECORDS SUMMARY | 2024-10-22 20:19 | XMS_ITS | Clinical Summary ---
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
--- OUTSIDE RECORDS SUMMARY | 2024-10-22 20:19 | XMS_ITS | Clinical Summary ---
Author Organization [facility] Address [address] [place] [address] Care Team Providers Care Finance Officer Name Role Phone Jarod Hernandez MD Primary Care Provider [phone] Raymon Conway MD Unavailable [phone] Mari [...] Date Diagnosed Date Atrial fibrillation with RVR ([facility]/HCC [facility] 0 06/03/2023 Pneumonia 06/02/2023 Encounters Date Type Department Care Team Description 08/14/2024 Orders Only [facility] [address] [place] [address] Raymon Conway MD from Last 3 Months [...] materials from doctor or pharmacy Never 07/19/2023 [facility] Utilities Answer Date Recorded In the past 12 months has th e [employer], gas, oil, or water [employer] threatened to shut off services in your [...] place to sleep or slept in a long term (including now)? No 06/05/2023 Comments Unknown Sex [...] Noemi Machado, RN Insurance MEDICARE PART A [employer] [facility] Advance Directives * Full Code (Latest Code Status on File) Date Activated Date Inactivated Comments 07/07/2023 7:48 AM * Full Code Date Activated Date Inactivated Comments 06/07/2023 7:45 AM 06/23/2023 7:20 PM Care Teams Finance Officer Relationship Specialty Start Date End Date Jarod Hernandez MD [address] [place] [address] PCP - General FAMILY PRACTICE 06/03/23 Raymon Conway MD [address] [place] [id number] Consulting Physician CLINICAL CARDIAC ELECTROPHYSIOLOGY 08/09/23 Mari Guajardo PA-C [address] [place] [id number] Referring Physician PHYSICIAN BRASS POURER 02/13/24
--- OUTSIDE RECORDS SUMMARY | 2024-10-22 20:19 | XMS_ITS ---
Author Organization Unknown Medications Medication Instructions Effective Dates (start - stop) Status thiamine 100 MG Oral Tablet [id number] :00:00Z - Completed apixaban 5 MG Oral Tablet [Eliquis] 00:00:00Z - Completed Microencapsulated potassium chloride 20 MEQ Extended Release Oral Tablet [Klor-Con] - Completed apixaban 5 MG Oral Tablet [Eliquis] 00:00:00Z - Completed metoprolol tartrate 25 MG Or al Tablet - Completed magnesium oxide 400 MG Oral Tablet 04-11T:00:00Z - Completed - - Compl eted prednisone 10 MG Oral Tablet [id number] 0:00:00Z - Completed naltrexone hydrochloride 50 MG [...] - Completed prednisone 20 MG Oral Tablet [id number] 0:00:00Z - Completed linezolid 600 MG Oral Tablet [id number] 0:00:00Z - Completed folic acid 1 MG Oral Tablet [id number] :00:00Z - Completed furosemide 40 MG Oral Tablet [id number] 0:00:00Z - Completed pantoprazole 40 MG Delayed R elease Oral Tablet - Completed spironolactone 25 MG Oral Tablet :00:00Z - Completed ondansetron 8 MG Oral Tablet [id number] 0:00:00Z - Completed albuterol 0.83 MG/ML Inhalat ion Solution - Completed pantoprazole 40 MG Delayed R elease Oral Tablet - Completed 30 ACTUAT fluticasone furoat e 0.1 MG/ACTUAT / umeclidinium 0.0625 MG/ACTUAT / vilanterol 0.025 MG/ACTUAT Dry Powder Inhaler [Trelegy] - Completed naltrexone hydrochloride 50 MG Oral Tablet - Completed - - Compl eted folic acid 1 MG Oral Tablet [id number] :00:00Z - Completed amoxicillin 875 MG / clavula shell 125 MG Oral Tablet - Completed Microencapsulated potassium chloride 20 MEQ Extended Release Oral Tablet [Klor-Con] - Completed folic acid 1 MG Oral Tablet [id number] :00:00Z - Completed thiamine 100 MG Oral Tablet [id number] :00:00Z - Completed amoxicillin 500 MG Oral Capsule 2023-10-04 6T00:00:00Z - Completed 24 HR diltiazem hydrochlorid e 180 MG Extended Release Oral Capsule - Comp leted thiamine 100 MG Oral Tablet [id number] :00:00Z - Completed cyclobenzaprine hydrochlorid e 10 MG Oral Tablet - Completed Patient Care team information Name Category Status Period Participants - - Proposed period not known -
--- OUTSIDE RECORDS SUMMARY | 2024-10-22 20:19 | XMS_ITS | Encounter Summary ---
Author Organization [facility] Address [facility] [place] [address] Care Team Providers Care Data Entry Technician Name Role Phone Jarod Hernandez MD Primary Care Provider Raymon Conway MD Unavailable [phone] Mari Guajardo PA-C Unavailable [phone] Encounter Details Date Type Department Care Team (Late st Contact Info) Description 06/27/2023 Hospital Follow-up Call [facility] Cardiovascular Care Unit [address] [place] [address] Cassandra Medina, RN Social History [...] the past 12 months has th e [employer], gas, oil, or water company threatened to [...] Assessment Author Status No 06/02/2023 9:30 PM OFFICE CHAIR ASSEMBLER Anita Chang, R N Active * Are you blind or do you have serious difficulty seeing, even when wearing glasses? Answer Date of Assessment Author Status No 06/02/2023 9:30 PM OFFICE CHAIR ASSEMBLER Anita Chang, R N Active * Do you have serious difficulty walking or climbing stairs? Answer Date of Assessment Author Status Yes 06/02/2023 9:30 PM OFFICE CHAIR ASSEMBLER Anita Chang, R N Active * Do you have difficulty dressing or bathing? Answer Date of Assessment Author Status Yes 06/02/2023 9:30 PM OFFICE CHAIR ASSEMBLER Anita Chang, R N Active * Because of a physical, mental, or emotional condition, do you have difficulty doing errands alone such as visiting a doctor's office or shopping? Answer Date of Assessment Author Status Yes 06/02/2023 9:30 PM OFFICE CHAIR ASSEMBLER Anita Chang, R N Active documented as of this encounter Mental Status * Because of a physical, mental, or emotional condition, do you have serious difficulty concentrating, remembering, or making decisions? Answer Entry Date Author Status No 06/02/2023 9:30 PM OFFICE CHAIR ASSEMBLER Anita Chang, R N Active documented in [...] on filedocumented in this encounter Care Teams Data Entry Technician Relationship Specialty Start Date End Date Jarod Hernandez MD [address] [place] [address] PCP - General FAMILY PRACTICE 06/03/23 Raymon Conway MD [address] [place] [address] Consulting Physician CLINICAL CARDIAC ELECTROPHYSIOLOGY 08/09/23 Mari Guajardo PA-C [address] [place] [address] Referring Physician PHYSICIAN ASSISTANT ACTIVITIES DIRECTOR 02/13/24 documented as of this encounter
--- OUTSIDE RECORDS SUMMARY | 2024-10-22 20:19 | XMS_ITS | Clinical Summary ---
Author Organization [facility] Address [address] [place] [address] Care Team Providers Care Recruitment Officer Name Role Phone Jarod Hernandez MD Primary Care Provider [phone] Source Comments [facility],non-owned Affiliates and Associated Physician Practices is amultiple site organization consisting of ambulatory clinics and hospital sitesin [place], [place], [place] and [place]. This disclosure is being madepursuant to the Care Everywhere program and may not contain all information available regarding this patient. 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 Gender Identity Not on file Sexual Orientation Not on file Last Filed Vital Signs Vital Sign Reading Time Taken Comments Blood Pressure 103/76 05/31/2023 10:50 AM COMPOUNDING SCALER Pulse 109 05/31/2023 10:50 AM COMPOUNDING SCALER Temperature 36.7 C (98.1 F) 05/31/2023 10:50 AM COMPOUNDING SCALER Respiratory Rate 14 11/18/2015 10:51 AM CDT Oxygen Saturation 89% 05/31/2023 10:50 AM COMPOUNDING SCALER Inhaled Oxygen Concentration - - Weight 58.1 kg (128 lb) 05/31/2023 10:50 AM COMPOUNDING SCALER Height 165.1 cm (5' 5) 05/31/2023 10:50 AM COMPOUNDING SCALER Body Mass Index 21.3 05/31/2023 10:50 AM COMPOUNDING SCALER Plan of Treatment Health Maintenance Due Date [...] Payer (Ef fective 2009-Present) Name:Jen Harrell Member ID:[id number] Relation to Subscriber:Self Name:Jen Harrell Subscriber ID:[id number] Payer ID:Not on file Type:HMO Address: [address] [employer] Member Subscriber Plan / Payer (Ef fective for All Dates) Name:Jen Harrell Member ID:[id number] Relation to Subscriber:Self Name:Jen Harrell Subscriber ID:[id number] Payer ID:Not on file Type:O Address: [address] SELF PAY NO INSURANCE Member Subscriber Plan / Payer (Ef fective for All Dates) Name:Jen Harrell Member ID:Not on file Relation to Subscriber:Not on file Name:JEN HARRELL Subscriber ID:Not on file Address: [address] [place] [address] Payer ID:Not on file Group ID:Not on file Type:Self Pay Address: [place], [place] Care Teams Recruitment Officer Relationship Specialty Start Date End Date Jarod Hernandez MD [address] [place] [address] PCP - General 07/25/15
[2024-10-22 20:21] VITALS: BMI 22.5
--- NOTE | 2024-10-22 20:21 | PC.NURSE ---
PATIENT ARRIVED ON 3 MEDSURG AT 2009
[2024-10-22 20:28] VITALS: BP 155/82; PULSE 86; RESP 20; TEMP 36.2; O2SAT 92
--- OUTSIDE RECORDS SUMMARY | 2024-10-22 21:29 | XMS_ITS | Clinical Summary ---
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
--- OUTSIDE RECORDS SUMMARY | 2024-10-22 21:29 | XMS_ITS | Referral Summary ---
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
--- OUTSIDE RECORDS SUMMARY | 2024-10-22 21:30 | XMS_ITS | Clinical Summary ---
Author Organization [facility] Address [address] [place] [address] Care Team Providers Care Financial Auditor Name Role Phone Jarod Hernandez MD Primary Care Provider [phone] Raymon Conway MD Unavailable [phone] Mari Guajardo PA-C Unavailable [phone] Allergies Active Allergy Reactions Criticality Noted [...] Date Diagnosed Date Atrial fibrillation with RVR ([facility]) 0 06/03/2023 Pneumonia 06/02/2023 Encounters Date Type Department Care Team Description 08/14/2024 Orders Only [facility] [address] [place] [address] Raymon Conway MD from Last 3 Months [...] materials from doctor or pharmacy Never 07/19/2023 [facility] Utilities Answer Date Recorded In the past 12 months has th e [employer], gas, oil, or water [employer] threatened to shut off services in your [...] place to sleep or slept in a half-way (including now)? No 06/05/2023 Comments Unknown Sex [...] Noemi Machado, RN Insurance MEDICARE PART A [employer] [facility] Advance Directives * Full Code (Latest Code Status on File) Date Activated Date Inactivated Comments 07/07/2023 7:48 AM * Full Code Date Activated Date Inactivated Comments 06/07/2023 7:45 AM 06/23/2023 7:20 PM Care Teams Financial Auditor Relationship Specialty Start Date End Date Jarod Hernandez MD [address] [place] [address] PCP - General FAMILY PRACTICE 06/03/23 Raymon Conway MD [address] [place] [address] Consulting Physician CLINICAL CARDIAC ELECTROPHYSIOLOGY 08/09/23 Mari Guajardo PA-C [address] [place] [address] Referring Physician PHYSICIAN SUPERVISOR FINISHING 02/13/24
--- OUTSIDE RECORDS SUMMARY | 2024-10-22 21:30 | XMS_ITS | Clinical Summary ---
Author Organization [facility] Address [address] [place] [address] Care Team Providers Care Keg Washer Name Role Phone Jarod Hernandez MD Primary Care Provider [phone] Source Comments [facility],non-owned Affiliates and Associated Physician Practices is amultiple site organization consisting of ambulatory clinics and hospital sitesin [place], [place], [place] and [place]. This disclosure is being madepursuant to the Care Everywhere program and may not contain all information available regarding this patient. Last updated 17.[facility] Allergies Active Allergy Reactions Criticality Noted Date [...] on file Legal Sex Female 5:53 PM NURSE ORTHOPEDIC Gender Identity Not on file Sexual Orientation Not on file Last Filed Vital Signs Vital Sign Reading Time Taken Comments Blood Pressure 103/76 05/31/2023 10:50 AM NURSE ORTHOPEDIC Pulse 109 05/31/2023 10:50 AM NURSE ORTHOPEDIC Temperature 36.7 C (98.1 F) 05/31/2023 10:50 AM NURSE ORTHOPEDIC Respiratory Rate 14 11/18/2015 10:51 AM CDT Oxygen Saturation 89% 05/31/2023 10:50 AM NURSE ORTHOPEDIC Inhaled Oxygen Concentration - - Weight 58.1 kg (128 lb) 05/31/2023 10:50 AM NURSE ORTHOPEDIC Height 165.1 cm (5' 5) 05/31/2023 10:50 AM NURSE ORTHOPEDIC Body Mass Index 21.3 05/31/2023 10:50 AM NURSE ORTHOPEDIC Plan of Treatment Health Maintenance Due Date [...] Payer (Ef fective 2009-Present) Name:Jen Harrell Member ID:[id number] Relation to Subscriber:Self Name:Jen Harrell Subscriber ID:[id number] Payer ID:Not on file Type:HMO Address: [address] [employer] Member Subscriber Plan / Payer (Ef fective for All Dates) Name:Jen Harrell Member ID:[id number] Relation to Subscriber:Self Name:Jen Harrell Subscriber ID:[id number] Payer ID:Not on file Type:O Address: [address] SELF PAY NO INSURANCE Member Subscriber Plan / Payer (Ef fective for All Dates) Name:Jen Harrell Member ID:Not on file Relation to Subscriber:Not on file Name:JEN HARRELL Subscriber ID:Not on file Address: [address] [place] [address] Payer ID:Not on file Group ID:Not on file Type:Self Pay Address: [place], [place] Care Teams Keg Washer Relationship Specialty Start Date End Date Jarod Hernandez MD [address] [place] [address] PCP - General 07/25/15
--- OUTSIDE RECORDS SUMMARY | 2024-10-22 21:30 | XMS_ITS ---
Author Organization Unknown Medications Medication Instructions Effective Dates (start - stop) Status thiamine 100 MG Oral Tablet [id number] :00:00Z - Completed apixaban 5 MG Oral Tablet [Eliquis] 00:00:00Z - Completed Microencapsulated potassium chloride 20 MEQ Extended Release Oral Tablet [Klor-Con] - Completed apixaban 5 MG Oral Tablet [Eliquis] 00:00:00Z - Completed metoprolol tartrate 25 MG Or al Tablet - Completed magnesium oxide 400 MG Oral Tablet 04-11T:00:00Z - Completed - - Compl eted prednisone 10 MG Oral Tablet [id number] 0:00:00Z - Completed naltrexone hydrochloride 50 MG [...] - Completed prednisone 20 MG Oral Tablet [id number] 0:00:00Z - Completed linezolid 600 MG Oral Tablet [id number] 0:00:00Z - Completed folic acid 1 MG Oral Tablet [id number] :00:00Z - Completed furosemide 40 MG Oral Tablet [id number] 0:00:00Z - Completed pantoprazole 40 MG Delayed R elease Oral Tablet - Completed spironolactone 25 MG Oral Tablet :00:00Z - Completed ondansetron 8 MG Oral Tablet [id number] 0:00:00Z - Completed albuterol 0.83 MG/ML Inhalat ion Solution - Completed pantoprazole 40 MG Delayed R elease Oral Tablet - Completed 30 ACTUAT fluticasone furoat e 0.1 MG/ACTUAT / umeclidinium 0.0625 MG/ACTUAT / vilanterol 0.025 MG/ACTUAT Dry Powder Inhaler [Trelegy] - Completed naltrexone hydrochloride 50 MG Oral Tablet - Completed - - Compl eted folic acid 1 MG Oral Tablet [id number] :00:00Z - Completed amoxicillin 875 MG / clavula shell 125 MG Oral Tablet - Completed Microencapsulated potassium chloride 20 MEQ Extended Release Oral Tablet [Klor-Con] - Completed folic acid 1 MG Oral Tablet [id number] :00:00Z - Completed thiamine 100 MG Oral Tablet [id number] :00:00Z - Completed amoxicillin 500 MG Oral Capsule 2023-10-04 6T00:00:00Z - Completed 24 HR diltiazem hydrochlorid e 180 MG Extended Release Oral Capsule - Comp leted thiamine 100 MG Oral Tablet [id number] :00:00Z - Completed cyclobenzaprine hydrochlorid e 10 MG Oral Tablet - Completed Patient Care team information Name Category Status Period Participants - - Proposed period not known -
--- OUTSIDE RECORDS SUMMARY | 2024-10-22 21:30 | XMS_ITS | Clinical Summary ---
Author Organization [facility] Address [address] [place] [address] Care Team Providers Care Caving Guide Name Role Phone Jarod Hernandez MD Primary Care Provider [phone] Allergies Active Allergy Reactions Criticality Noted Date Comments Iodine Rash Low 06/02/2023 Medications fluticasone-um eclidinium-ix anterol (Trelegy Ellipta) 100-62.5-25 mcg Disk with [...] STL ABSTRACTION Provider, Abstract 10/15/2024 Orders Only [facility] - [facility] [address] [place] [phone] Zaki Leon MD Hereditary hemochromatosis 09/27/2024 Orders Only [facility] - [facility] [address] [place] [address] Zaki Leon MD 09/25/2024 External Device Data STL ABSTRACTION Provider, Abstract 09/24/2024 Orders Only [facility] - [facility] [address] [place] [address] Zaki Leon MD Hereditary hemochromatosis 09/18/2024 External Device Data STL ABSTRACTION Provider, Abstract 09/07/2024 Orders Only [facility] - [facility] [address] [place] [address] Zaki Leon MD 09/03/2024 Orders Only [facility] - [facility] [address] [place] [address] Zaki Leon MD Hereditary hemochromatosis 08/29/2024 2:15 PM CDT Office Visit [facility] - [facility] [address] [place] [address] Zaki Leon MD Hereditary hemochromatosis (Primary Dx); Acute deep vein thrombosis (DVT) of distal vein of left lower extremity (CMS/HCC) 08/28/2024 External Device Data STL ABSTRACTION Provider, Abstract 08/28/2024 Orders Only [facility] - [facility] [address] [place] [address] Zaki Leon MD 08/23/2024 External Device Data STL ABSTRACTION Provider, Abstract 08/22/2024 External Device Data STL ABSTRACTION Provider, Abstract 08/22/2024 External Device Data STL ABSTRACTION Provider, Abstract 08/21/2024 External Device Data STL ABSTRACTION Provider, Abstract 08/13/2024 Orders Only [facility] - [facility] [address] [place] [address] Zaki Leon MD Hereditary hemochromatosis 08/01/2024 Orders Only [facility] - [address] [place] [address] Zaki Leon MD 07/23/2024 Orders Only [facility] - [facility] [address] [place] [address] Zaki Leon MD Hereditary hemochromatosis [...] Description 12/31/2024 3:45 PM CDT Office Visit [facility] - [facility] [address] [facility] [address] [place] [address] Zaki Leon MD [address] [facility] [address] [place] [address] Health Maintenance Due Date Last [...] Res ult from Last 3 Months Insurance [facility] [employer] [facility] Care Teams Caving Guide Relationship Specialty Start Date End Date Jarod Hernandez MD [address] [place] [phone] PCP - General Family Practice 01/18/19
--- OUTSIDE RECORDS SUMMARY | 2024-10-22 21:30 | XMS_ITS | Encounter Summary ---
Author Organization [facility] Address [facility] [place] [address] Care Team Providers Care Sales And Marketing Specialist Name Role Phone Jarod Hernandez MD Primary Care Provider [phone] Raymon Conway MD Unavailable [phone] Mari Guajardo PA-C Unavailable [phone] Encounter Details Date Type Department Care Team (Late st Contact Info) Description 06/27/2023 Hospital Follow-up Call [facility] Unit [address] [place] [address] Cassandra Medina, RN Social History [...] the past 12 months has th e [employer], gas, oil, or water company threatened to [...] Assessment Author Status No 06/02/2023 9:30 PM UTILITY SYSTEM OPERATOR Anita Chang, R N Active * Are you blind or do you have serious difficulty seeing, even when wearing glasses? Answer Date of Assessment Author Status No 06/02/2023 9:30 PM UTILITY SYSTEM OPERATOR Anita Chang, R N Active * Do you have serious difficulty walking or climbing stairs? Answer Date of Assessment Author Status Yes 06/02/2023 9:30 PM UTILITY SYSTEM OPERATOR Anita Chang, R N Active * Do you have difficulty dressing or bathing? Answer Date of Assessment Author Status Yes 06/02/2023 9:30 PM UTILITY SYSTEM OPERATOR Anita Chang, R N Active * Because of a physical, mental, or emotional condition, do you have difficulty doing errands alone such as visiting a doctor's office or shopping? Answer Date of Assessment Author Status Yes 06/02/2023 9:30 PM UTILITY SYSTEM OPERATOR Anita Chang, R N Active documented as of this encounter Mental Status * Because of a physical, mental, or emotional condition, do you have serious difficulty concentrating, remembering, or making decisions? Answer Entry Date Author Status No 06/02/2023 9:30 PM UTILITY SYSTEM OPERATOR Anita Chang, R N Active documented [...] on filedocumented in this encounter Care Teams Sales And Marketing Specialist Relationship Specialty Start Date End Date Jarod Hernandez MD [address] [place] [address] PCP - General FAMILY PRACTICE 06/03/23 Raymon Conway MD [address] [place] [address] Consulting Physician CLINICAL CARDIAC ELECTROPHYSIOLOGY 08/09/23 Mari Guajardo PA-C [address] [place] [address] Referring Physician PHYSICIAN PRIMARY CLINICIAN 02/13/24 documented as of this encounter
[2024-10-22] MEDS: SODIUM CHLORIDE 0.9% IV 1,000 ML 999 ML IV CONT (21:54)
--- NOTE | 2024-10-22 22:01 | PM.IMHP ---
H&P: HPI History of Present Illness Date/Time: 10/22/24 22:01 Chief Complaint: Colitis Narrative: 74-year-old female with a past medical history of COPD, hemochromatosis, cirrhosis, former heavy alcohol use, bowel resection, essential hypertension who presented to the ER at [facility] due to abdominal pain, cough and nausea vomiting. The patient was evaluated at [place] initially on the complaining of vomiting for 20 times a day for 6 days. And vomiting was also accompanied by multiple loose stools. She reported that her stools looked like boil sitting in the toilet. Stools were brown and mushy. Her emesis was clear. She had been having some generalized abdominal pain. Patient was given ODT Zofran and discharged home. She returned to [place] ER on the night of the with worsening abdominal pain. She reports that she has not been able to keep any food down. She reports that she is chronically chilled but has not been having any subjective fevers. She reported that the day she started having vomiting she was started on amoxicillin to treat her teeth in preparation to start having dental extractions. She had only taken 1 dose of amoxicillin min symptoms started. She denies any history of infectious colitis. Her abdominal pain was in the lower abdomen. But on palpation she had generalized abdominal pain were so in the bilateral lower quadrants. CT scan at the outside facility demonstrated dependent tree in bud opacities may represent atypical infection or aspiration in slightly decreased size of the right upper lobe cavitary lesion previously noted with marked gallbladder hydrops without obstructing stone or mass and distal transverse colon and sigmoid colon wall thickening consistent with infectious inflammatory or ischemic colitis. Patient had mild lactic acidosis and leukocytosis. She was given empiric antibiotic therapy with Zosyn and 1 L of IV fluid hydration. She was transferred [facility] for evaluation by Surgical Service. Patient reports that she uses 2 L home O2 at night for sleep. Review of Systems Review of Systems: 12 systems were reviewed with pertinent positives and negatives per HPI. Except as documented in the HPI, all other systems were reviewed and are negative. [facility] Past Medical History Medical History (Updated 10/23/24 @ 07:19 by Lynette Duncan DO) DVT (deep venous thrombosis) 2023 Hemochromatosis Alcohol use Patient reports that she quit drinking alcohol in 2022 Cirrhosis Family history of colon cancer in father Gastritis and duodenitis Elevated ferritin Fatty liver History of bruising easily Family hx of colon cancer Hypertension COPD (chronic obstructive pulmonary disease) Surgical History Surgical History History of tooth extraction H/O colonoscopy with polypectomy H/O tubal ligation S/P tonsillectomy History of colon surgery cecum History of appendectomy Family History Family History Father Colon cancer Mother Heart failure Social History Social History (Updated 10/23/24 @ 07:30 by Lynette Duncan DO) Social History: 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 She lives with a roommate. She is and has 4 children. She has smoked 1-1.5 packs of cigarettes per day since she was a teenager. She used to drink 4-5 alcoholic beverages a day but quit drinking approximately 2022. code status full code Smoking packs per day: 1 Smoking cigarettes per day: 20.0 Years smoked: 60 Smoking pack-years: 60.00 Smoking status: Current every day smoker Tobacco type: cigarettes Second hand tobacco smoke exposure: No Alcohol intake: former Drinks per week: 4 Alcohol use details: 5 shots per day Substance use: never Substance use type: does not use Do You Feel Safe in your Home?: Yes Lack of Transportation: No Lack of Food: Never True Current Housing: I Have Housing Concerned About Future Housing: No Difficulty Paying Gas/Electric Bills: No Difficulty Paying for Meds: No Currently Unemployed: No Education: High School Diploma/GED Difficulty w/ Childcare or Family Care: No Living arrangements: alone Occupation/Education: occupation 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/education comments: [employer]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 Gender identity (if verbalized by the patient): Female Spiritual care concerns: Yes Agree to blood products: Yes Meds Home Medications and Allergies Home Medications ?Medication ?Instructions ?Recorded ?Confirmed ?Type albuterol sulfate 90 mcg/actuation 1 - 2 inh inhalation Q4-6H PRN 02/03/24 10/22/24 Rx aerosol inhaler shortness of breath or wheezing #8.5 grams Trelegy Ellipta 100 mcg-62.5 1 inh inhalation DAILY #60 ea 02/06/24 10/22/24 Rx mcg-25 mcg powder for inhalation (uwaeffzezyr-gznirhspf-orzifbjx) aspirin 81 mg tablet,delayed 81 mg PO DAILY 05/16/24 10/22/24 History release folic acid 1 mg tablet 1 mg PO DAILY 06/14/24 10/22/24 History mecobalamin (vitamin B12) 500 mcg 500 mcg PO DAILY 06/14/24 10/22/24 History chewable tablet multivitamin (Daily Multi-Vitamin 1 tablet PO DAILY 10/22/24 10/22/24 History tablet) Allergies Allergy/AdvReac Type Severity Reaction Status Date / Time mercury (elemental) Allergy Unknown Verified 10/22/24 20:22 Iodine and Iodide Containing AdvReac Rash Verified 10/22/24 20:22 Produc Vital Signs Vital Signs - 24 hr 10/22/24 20:28 Temperature 97.2 F L Pulse Rate 86 Respiratory Rate 20 Blood Pressure 155/82 H Pulse Oximetry 92 Exam Narrative: Weight 61.4 kg BMI 22.5 Const: Other: Acutely ill-appearing, thin body habitus, appears older than stated age HENMT: Other: Poor dentition with multiple dental caries and multiple missing teeth with significant plaquing on teeth, mucous membranes are dry with white plaquing to the tongue and in the posterior oropharynx Eyes: Other: No conjunctival pallor, no scleral icterus Neck: Other: No JVD, no lymphadenopathy Resp: Other: Decreased breath sounds in all lung whitman, no increased work of breathing, nasal cannula in place GI: Other: Distended, hyperactive bowel sounds, diffusely tender but more so in the left lower quadrant, hepatomegaly : Other: Pure wick catheter in place with a small amount of dark yellow urine Skin: Other: Generalized pallor, non jaundice Neuro: Other: Alert orient x4, speech is clear, no facial asymmetry, no localizing neurologic deficits noted during the course of conversation Extrem: Other: No clubbing, cyanosis or edema, moves all extremities equally Psych: Other: Flat affect, cooperative, judgment and insight intact H&P: Results Labs Labs: Labs from outside facility: WBC 10.2 hemoglobin 15.7 platelet count 171 PT 12.9 INR 1.2 PTT 28 sodium 136 potassium 3.7 chloride 100 CO2 29 BUN 19 creatinine 0.67 lactic acid 2.5 with repeat of 2.3 AST 53 ALT 20 alk-phos 134 ADDENDUMIncidental note of a stable left upper renal pole AML. Addendum Dictated By: Jeff Loya MD Addendum Signed By: <Electronically signed by Jeff Loya MD in [place]> 10/22/241711 Addendum Cosigned By: DD/ TD/TT: / EXAMINATION: CT chest abdomen pelvis wo con DATE: 10/22/2024 16:05 INDICATION: abdo pain/cough . TECHNIQUE: Computed tomography (CT) of the chest, abdomen, and pelvis was performed with 100 mL Omnipaque-350 intravenous contrast. Automated exposure control and iterative reconstruction technique were employed. The dose-length product was 338.81 mGy-cm. There was a significant delay in transferring all of the images of the study. COMPARISON: CT chest 07/12/2024 FINDINGS: CHEST: Thoracic aorta: No significant dilation. No dissection. Atherosclerotic calcifications. Lung parenchyma and airways: Moderate emphysematous change. Persistent scarring and fibrosis in the right upper lobe, with a persistent cavitary lesion that has decreased slightly in size. Subtle dependent left lower lobe tree-in-bud opacities. Patent airways. Thoracic inlet, axillae and chest wall: No thyroid or soft tissue mass. No axillary lymphadenopathy. Mediastinum: Dilated central airways as can be seen with pulmonary hypertension. Calcified nodes. Heart and pericardium: Normal heart size. No pericardial effusion. Coronary artery calcifications: Moderate. Pleura: No effusion or mass. Thoracic bones: No acute osseous finding in the chest. ABDOMEN/PELVIS: Liver: Normal. Biliary/Gallbladder: Markedly distended gallbladder. No stone detected. No bile duct dilation. Pancreas: No mass or duct dilation. Spleen: Normal. Adrenals:No mass. Kidneys: No suspicious mass, obstructing stone, or hydronephrosis. GI tract: No small or large bowel dilation. Mild wall thickening and loss of haustration in the distal transverse colon. Moderate wall thickening with mild surrounding inflammatory change in the sigmoid colon. Status post appendectomy. Diverticulosis without diverticulitis. Mesentery/Peritoneum: No ascites, mass, or free air. Retroperitoneum: 9 mm splenic artery aneurysm with heavy calcification. Atherosclerotic calcifications of intra-abdominal arterial vessels. Pelvis: Pelvic organs are within normal limits Soft Tissues: Small uncomplicated fat-containing umbilical and bilateral inguinal hernias. Abdominopelvic bones: No acute osseous finding in the abdomen/pelvis. IMPRESSION: Dependent left lower lobe tree-in-bud opacities may represent atypical infection or aspiration. Slightly decreased size of the right upper lobe cavitary lesion. Marked gallbladder hydrops, without obstructing stone or mass detected. No biliary duct dilation. Consider right upper quadrant ultrasound for further evaluation. 9 mm splenic artery aneurysm. Consider annual surveillance. Distal transverse colon and sigmoid colon wall thickening as can be seen with infectious, inflammatory, or ischemic colitis. All imaging and EKGs personally reviewed and interpreted. And unless stated otherwise agree with radiologic and cardiology interpretation. Assessment and Plan Assessment and plan (1) Acute colitis: Code(s): K52.9 - Noninfective gastroenteritis and colitis, unspecified Status: Acute (2) Nicotine dependence: Qualifiers: Nicotine product type: cigarettes Substance use status: unspecified nicotine-induced disorder Qualified Code(s): F17.219 - Nicotine dependence, cigarettes, with unspecified nicotine-induced disorders Code(s): F17.200 - Nicotine dependence, unspecified, uncomplicated Status: Chronic Plan Patient has acute colitis with persistent nausea vomiting and diarrhea. Will obtain stool cultures and C diff PCR. Will place patient on clear liquid diet as tolerated. P.r.n. pain medications and nausea medications have been provided. Given her lactic acidosis will given additional 1 L fluid bolus and continue patient on maintenance fluids. Patient will be continued on empiric antibiotic therapy with Zosyn. The patient does have some findings and a CT scan which could be consistent with pneumonia but Zosyn should cover any possible microorganisms associated with aspiration which would be the most reasonable cause for pneumonia given the patient's 6 days of vomiting. Will repeat CBC and electrolyte panel in a.m.. Patient has no interest in quitting smoking and but does request a nicotine patch which has been provided. Patient has been admitted as observation status. MEDICAL DECISION MAKING NARRATIVE -Spoke with the ED provider in detail regarding patient's evaluation, workup and management -Patient seen and examined at bedside -Collaborated with patient's nurse at the bedside in detail and addressed all concerns -Labs, electrolytes, radiology, investigations and test results reviewed -ED/Consult/Nursing/Ancilliary notes on the chart reviewed and appreciated -Spoke with patient and all questions were answered. Quality VTE Prophylaxis VTE prophylaxis: pharmacologic ordered (Lovenox 40 mg subQ daily) Hospitalist [facility] Advance Care Plan I have confirmed that the patient's Advanced Care Plan is present, code status is documented, or surrogate decision maker is listed in patient medical record.: Yes Medication Reconciliation I have utilized all available resources to obtain, update and review the patients current medications (includes all prescriptions, OTC, herbals, cannabis, and nutritional supplements).: Yes
[2024-10-22 22:58] VITALS: O2SAT 98
[2024-10-22] MEDS: SODIUM CHLORIDE 0.9% IV 1,000 ML 100 ML IV CONT (22:58)
[2024-10-23] VITALS: BP 136/74; PULSE 100; RESP 20; TEMP 36; O2SAT 98
[2024-10-23] MEDS: MORPHINE SULFATE (*CRX) 2 MG/ML INJ IV PUSH (00:23)
[2024-10-23] MEDS: ONDANSETRON INJ 4 MG/2 ML VIAL IV PUSH (00:23)
[2024-10-23] MEDS: NICOTINE (*PBKC) 21 MG PATCH 1 PATCH TRANSDERM ×2 (01:18→08:46)
[2024-10-23 05:39] LABS: Hematocrit 40.5 % (37.0-47.0); Hemoglobin 13.7 g/dL (12.0-15.0); Immature Granulocyte Percent A 0.4 % (0-0.5); Lymphocytes Absolute Auto 3.85 K/mm3 (0.9-3.2); Mean Corpuscular HGB Conc 33.8 g/dl (32-36); Mean Corpuscular Hemoglobin 31.6 pg (26-34); Mean Corpuscular Volume 93.5 fl (80-100); Nucleated Red Blood Cells Absolute Auto 0.000 K/mm3 (0.0-0.012); Nucleated Red Blood Cells Perc 0.0 % (0.0-0.2); Platelet Count Result 141 k/mm3 (150-375); Red Blood Count 4.33 M/mm3 (4.2-5.4); White Blood Count 12.6 K/mm3 (4.5-10.0)
[2024-10-23 06:03] LABS: Anion Gap 6 mmol/L (4-12); Blood Urea Nitrogen 14 mg/dL (7-17); Calcium 7.8 mg/dL (8.4-10.2); Carbon Dioxide 24 mmol/L (22-30); Chloride 103 mmol/L (98-107); Estimated CRCL calculation 63 ml/min; Estimated Glomerular Filt Rate > 60; Glucose 76 mg/dL (65-110); Potassium 3.4 mmol/L (3.4-5.0); Sodium 133 mmol/L (137-145)
[2024-10-23] MEDS: FLUTICASONE/UMECLIDIN/VILANTER 100-62.5-25 MCG ELLIPTA 1 PUFF INHALATION (08:19)
[2024-10-23] MEDS: ENOXAPARIN 40 MG/0.4 ML SYRINGE SUB-Q (08:46)
[2024-10-23] MEDS: FOLIC ACID 1 MG TABLET PO (08:46)
[2024-10-23] MEDS: ASPIRIN 81 MG ENTERIC TABLET PO (08:46)
[2024-10-23] MEDS: CYANOCOBALAMIN 500 MCG TABLET PO (08:46)
--- NOTE | 2024-10-23 09:02 | P.CONGS_ITS ---
Assessment and Plan Assessment and plan (1) Acute colitis: Code(s): K52.9 - Noninfective gastroenteritis and colitis, unspecified Status: Acute Assessment and Plan: Patient presented to [place] ED yesterday with 5-6 days of abdominal pain. She was previously seen 2 days ago at [place] ED and sent home with nausea medication, however pain persisted leading to her presenting again to ED yesterday. WBC 12.6. CT of the abdomen demonstrated distal transverse colon and sigmoid colon wall thickening as can be seen with infectious, inflammatory, or ischemic colitis. Patient is hemodynamically stable. Tolerating clear liquids without nausea or vomiting. Abdominal pain much improved from yesterday. Still complains of diarrhea. No need for immediate surgical intervention at this time. Continue with medical treatment. Will advance to full liquid diet with lunch. (2) Cirrhosis: Code(s): K74.60 - Unspecified cirrhosis of liver Status: Acute (3) Hereditary hemochromatosis: Code(s): E83.110 - Hereditary hemochromatosis Status: Acute (4) Family history of colon cancer in father: Code(s): Z80.0 - Family history of malignant neoplasm of digestive organs Status: Acute Assessment and Plan: Patient has never had colonoscopy. Emphasized importance of colonoscopy after this episode of colitis is resolved. (5) COPD (chronic obstructive pulmonary disease): Qualifiers: COPD type: unspecified COPD Qualified Code(s): J44.9 - Chronic obstructive pulmonary disease, unspecified Code(s): J44.9 - Chronic obstructive pulmonary disease, unspecified Status: Acute Assessment and Plan: Patient's cough is chronic, and likely unrelated to abdominal pain. Plan Discussed patient's case and plan of care with Dr. Ramos. History of Present Illness Consult details Consult date: 10/23/24 Reason for consult: other (Colitis) Requesting physician: Lynette Duncan DO Narrative: Patient is a 74-year-old female with history of gastritis and duodenitis, COPD, cirrhosis who we have been asked to see in surgical consultation for colitis. Patient 1st noted abdominal pain starting roughly 5-6 days ago. At this time she noticed a lack of appetite, as well as nausea. She also notes persistent diarrhea. Patient presented to [place] ED on Tuesday (2 days ago), and she states that she was sent home with nausea medication. No imaging was performed at this time. Yesterday, pain persisted causing patient to again present to [place] ED. CT of the abdomen and pelvis demonstrated distal transverse colon and sigmoid colon wall thickening as can be seen with infectious, inflammatory, or ischemic colitis. Of note, dependent left lower lobe tree-in-bud opacities representing atypical infection or aspiration noted on CT, as well as slightly decreased size of the right upper lobe cavitary lesion. Marked gallbladder hydrops, without obstructing stone or mass detected. No biliary duct dilation. Consider right upper quadrant ultrasound for further evaluation. 9 mm splenic artery aneurysm. Consider annual surveillance. Transfer to [facility] was then initiated. Patient is hemodynamically stable. Vital signs normal. Afebrile. WBC up to 12.6 today. Lactic acid slightly elevated yesterday at 2.3. No hematemesis or hematochezia. Patient has never had a colonoscopy, however there is history of colon cancer on her paternal side. No history of Crohns, diverticulitis, or UC. Abdominal surgical history includes a cecum resection 20+ years ago as well as tubal ligation. Patient states that pain is much improved today, as well as nausea. She is sitting up on side of bed upon interview. Last BM was diarrhea this morning. [facility] Past Medical History Medical History (Updated 10/23/24 @ 07:19 by Lynette Duncan DO) DVT (deep venous thrombosis) 2023 Hemochromatosis Alcohol use Patient reports that she quit drinking alcohol in 2022 Cirrhosis Family history of colon cancer in father Gastritis and duodenitis Elevated ferritin Fatty liver History of bruising easily Family hx of colon cancer Hypertension COPD (chronic obstructive pulmonary disease) Surgical History Surgical History History of tooth extraction H/O colonoscopy with polypectomy H/O tubal ligation S/P tonsillectomy History of colon surgery cecum History of appendectomy Family History Family History Father Colon cancer Mother Heart failure Social History Social History (Updated 10/23/24 @ 07:30 by Lynette Duncan DO) Social History: 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 She lives with a roommate. She is and has 4 children. She has smoked 1- 1.5 packs of cigarettes per day since she was a teenager. She used to drink 4-5 alcoholic beverages a day but quit drinking approximately 2022. code status full code Smoking packs per day: 1 Smoking cigarettes per day: 20.0 Years smoked: 60 Smoking pack-years: 60.00 Smoking status: Current every day smoker Tobacco type: cigarettes Second hand tobacco smoke exposure: No Alcohol intake: former Drinks per week: 4 Alcohol use details: 5 shots per day Substance use: never Substance use type: does not use Do You Feel Safe in your Home?: Yes Lack of Transportation: No Lack of Food: Never True Current Housing: I Have Housing Concerned About Future Housing: No Difficulty Paying Gas/Electric Bills: No Difficulty Paying for Meds: No Currently Unemployed: No Education: High School Diploma/GED Difficulty w/ Childcare or Family Care: No Living arrangements: alone Occupation/Education: occupation 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/education comments: [employer]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 Gender identity (if verbalized by the patient): Female Spiritual care concerns: Yes Agree to blood products: Yes Meds Home Medications and Allergies Home Medications ?Medication ?Instructions ?Recorded ?Confirmed ?Type albuterol sulfate 90 mcg/actuation 1 - 2 inh inhalation Q4-6H PRN 02/03/24 10/22/24 Rx aerosol inhaler shortness of breath or wheezing #8.5 grams Trelegy Ellipta 100 mcg-62.5 1 inh inhalation DAILY #60 ea 02/06/24 10/22/24 Rx mcg-25 mcg powder for inhalation ([id number]) aspirin 81 mg tablet,delayed 81 mg PO DAILY 05/16/24 10/22/24 History release folic acid 1 mg tablet 1 mg PO DAILY 06/14/24 10/22/24 History mecobalamin (vitamin B12) 500 mcg 500 mcg PO DAILY 06/14/24 10/22/24 History chewable tablet multivitamin (Daily Multi-Vitamin 1 tablet PO DAILY 10/22/24 10/22/24 History tablet) Allergies Allergy/AdvReac Type Severity Reaction Status Date / Time mercury (elemental) Allergy Unknown Verified 10/22/24 20:22 Iodine and Iodide Containing AdvReac Rash Verified 10/22/24 20:22 Produc Vital Signs Vital Signs - 24 hr 10/22/24 20:28 10/22/24 22:58 10/23/24 00:00 Temperature 97.2 F L 96.8 F L Pulse Rate 86 100 Respiratory Rate 20 20 Blood Pressure 155/82 H 136/74 Pulse Oximetry 92 98 98 Oxygen Delivery Nasal Cannula Oxygen Flow Rate 2 10/23/24 08:00 Temperature Pulse Rate Respiratory Rate Blood Pressure Pulse Oximetry Oxygen Delivery Room Air Oxygen Flow Rate Exam 2 Const: General: comfortable and no acute distress Eyes: General: appearance normal, both eyes and all related structures Neck: Neck: supple Resp: Effort & Inspection: normal respiratory effort Cardio: Rate: regular rate GI: Inspection: distended GI Palp: Yes Soft to palpation, No Firmness to palpation present (GI), No Tenderness to palpation present (GI) and No Guarding due to palpation present (GI) Auscultation: normal bowel sounds Other: Mildly distended. Abdomen is soft, with no tenderness to palpation throughout. Skin: General skin exam: normal color and no rashes or lesions noted Neuro: Speech: normal speech Extrem: General: normal to inspection Psych: Mental Status: mental status grossly normal Results Labs 10/23/24 05:15 10/23/24 05:15 Labs: Abnormal lab results 10/23/24 Range/Units 05:15 WBC 12.6 H (4.5-10.0) K/mm3 RDW 15.5 H (11.5-14.5) % Plt Count 141 L (150-375) k/mm3 Eos % (Auto) 5.4 H (0-4.4) % Lymph # (Auto) 3.85 H (0.9-3.2) K/mm3 [place] # (Auto) 1.0 H (0.1-0.6) K/mm3 Eos # (Auto) 0.7 H (0-0.3) K/mm3 Abs Immat Gran (auto) 0.05 H (0.00-0.031) K/mm3 Absolute Neuts (auto) 7.0 H (1.3-6.7) K/mm3 Sodium 133 L (137-145) mmol/L Creatinine 0.61 L (0.7-1.0) mg/dL Calcium 7.8 L (8.4-10.2) mg/dL Diabetes panel 10/23/24 Range/Units 05:15 Sodium 133 L (137-145) mmol/L Potassium 3.4 (3.4-5.0) mmol/L Chloride 103 (98-107) mmol/L Carbon Dioxide 24 (22-30) mmol/L BUN 14 D (7-17) mg/dL Creatinine 0.61 L (0.7-1.0) mg/dL Glucose 76 (65-110) mg/dL Calcium 7.8 L (8.4-10.2) mg/dL Calcium panel 10/23/24 Range/Units 05:15 Calcium 7.8 L (8.4-10.2) mg/dL Pituitary panel 10/23/24 Range/Units 05:15 Sodium 133 L (137-145) mmol/L Potassium 3.4 (3.4-5.0) mmol/L Chloride 103 (98-107) mmol/L Carbon Dioxide 24 (22-30) mmol/L BUN 14 D (7-17) mg/dL Creatinine 0.61 L (0.7-1.0) mg/dL Glucose 76 (65-110) mg/dL Calcium 7.8 L (8.4-10.2) mg/dL Adrenal panel 10/23/24 Range/Units 05:15 Sodium 133 L (137-145) mmol/L Potassium 3.4 (3.4-5.0) mmol/L Chloride 103 (98-107) mmol/L Carbon Dioxide 24 (22-30) mmol/L BUN 14 D (7-17) mg/dL Creatinine 0.61 L (0.7-1.0) mg/dL Glucose 76 (65-110) mg/dL Calcium 7.8 L (8.4-10.2) mg/dL All other labs normal.
[2024-10-23] MEDS: SODIUM CHLORIDE 0.9% IV 1,000 ML 100 ML IV CONT ×2 (09:04→20:14)
[2024-10-23] MEDS: FLUCONAZOLE 100 MG/NACL 50 ML 100 MG/50 ML BTL 50 MG IVPB (09:05)
[2024-10-23 11:26] LABS: Toxigenic C. Diff NEGATIVE (NEGATIVE)
--- NOTE | 2024-10-23 13:04 | PM.IMPN ---
Progress Note: A&P Assessment and Plan (1) Acute colitis: Code(s): K52.9 - Noninfective gastroenteritis and colitis, unspecified Status: Acute (2) Nicotine dependence: Qualifiers: Nicotine product type: cigarettes Substance use status: unspecified nicotine-induced disorder Qualified Code(s): F17.219 - Nicotine dependence, cigarettes, with unspecified nicotine-induced disorders Code(s): F17.200 - Nicotine dependence, unspecified, uncomplicated Status: Chronic Plan Patient has acute colitis with persistent nausea vomiting and diarrhea. - stool cultures and C diff PCR ordered -continue clear liquid diet as tolerated - P.r.n. pain medications and nausea medications have been provided - Given her lactic acidosis will given additional 1 L fluid bolus and continue patient on maintenance fluids. - will continue IV antibiotics - smoking cessation education completed, pt denies need for nicotine patch - surgery following trend labs daily -fluconazole po x 7 days for oral candidiasis Time Spent With Patient Time with patient: 25 - 35 minutes Subjective Date/time seen: 10/23/24 13:04 Interval history: 74-year-old female with a past medical history of COPD, hemochromatosis, cirrhosis, former heavy alcohol use, bowel resection, essential hypertension who presented to the ER at [facility] due to abdominal pain, cough and nausea vomiting. The patient was evaluated at [place] initially on the complaining of vomiting for 20 times a day for 6 days. And vomiting was also accompanied by multiple loose stools. pt is seen and examined. Surgery on board, will advance to full liquid diet with lunch. abd pain is better. will continue antibiotics. Diarrhea slowing down. Review of Systems Review of Systems: 12 systems were reviewed with pertinent positives and negatives per HPI. Except as documented in the HPI, all other systems were reviewed and are negative. Exam Narrative: Weight 61.4 kg BMI 22.5 Const: Other: Acutely ill-appearing, thin body habitus, appears older than stated age HENMT: Other: Poor dentition with multiple dental caries and multiple missing teeth with significant plaquing on teeth, mucous membranes are dry with white plaquing to the tongue and in the posterior oropharynx Eyes: Other: No conjunctival pallor, no scleral icterus Neck: Other: No JVD, no lymphadenopathy Resp: Other: Decreased breath sounds in all lung whitman, no increased work of breathing, nasal cannula in place GI: Other: Distended, hyperactive bowel sounds, diffusely tender but more so in the left lower quadrant, hepatomegaly : Other: Pure wick catheter in place with a small amount of dark yellow urine Skin: Other: Generalized pallor, non jaundice Neuro: Other: Alert orient x4, speech is clear, no facial asymmetry, no localizing neurologic deficits noted during the course of conversation Extrem: Other: No clubbing, cyanosis or edema, moves all extremities equally Psych: Other: Flat affect, cooperative, judgment and insight intact Objective Data Vital Signs Vital Signs: Vital Signs - 24 hr 10/22/24 20:28 10/22/24 22:58 10/23/24 00:00 Temperature 97.2 F L 96.8 F L Pulse Rate 86 100 Respiratory Rate 20 20 Blood Pressure 155/82 H 136/74 Pulse Oximetry 92 98 98 Oxygen Delivery Nasal Cannula Oxygen Flow Rate 2 10/23/24 08:00 Temperature Pulse Rate Respiratory Rate Blood Pressure Pulse Oximetry Oxygen Delivery Room Air Oxygen Flow Rate Intake/Output Intake/Output: Intake & Output 10/20/24 10/21/24 10/22/24 10/23/24 23:59 23:59 23:59 23:59 Intake Total 1050 Output Total 100 Balance 950 Meds/Results Medications: Active Medications Generic Name Dose Route Start Last Admin Trade Name Freq PRN Reason Stop Dose Admin Acetaminophen 650 mg 10/22/24 21:08 Acetaminophen 325 Mg Tablet PO Q4H PRN Mild Pain (1-3) or Fever Hydrocodone Bitart/Acetaminophen 1 tab 10/22/24 21:08 Hydrocodone/Acetaminophen (*Crx) 5-325 Mg Tablet PO Q4H PRN Moderate Pain (4-6) Albuterol 2 puff 10/22/24 21:14 Albuterol Sulfate (*Sp) Aerosol 1 Puff INHALATION Q6HRT PRN shortness of breath or wheezing Aspirin 81 mg 10/23/24 09:00 10/23/24 08:46 Aspirin 81 Mg Enteric Tablet PO 81 mg DAILY BETTINA Administration Cyanocobalamin 500 mcg 10/23/24 09:00 10/23/24 08:46 Cyanocobalamin 500 Mcg Tablet PO 500 mcg DAILY BETTINA Administration Enoxaparin Sodium 40 mg 10/23/24 09:00 10/23/24 08:46 Enoxaparin 40 Mg/0.4 Ml Syringe SUB-Q 40 mg DAILY BETTINA Administration Fluticasone/Umeclidinium/Vilanterol 1 puff 10/23/24 09:00 10/23/24 08:19 Fluticasone/Umeclidin/Vilanter 100-62.5-25 Mcg Ellipta INHALATION 1 puff DAILY BETTINA Administration Folic Acid 1 mg 10/23/24 09:00 10/23/24 08:46 Folic Acid 1 Mg Tablet PO 1 mg DAILY BETTINA Administration Sodium Chloride 1,000 mls @ 100 mls/hr 10/22/24 21:10 10/23/24 09:04 Normal Saline Iv IV CONT 100 mls/hr .Q10H BETTINA Administration Fluconazole/Dextrose 100 mg in 50 mls @ 50 mls/hr 10/23/24 09:00 10/23/24 10:05 Diflucan 100 Mg/Nacl 50 Ml IVPB Infused DAILY BETTINA Infusion Morphine Sulfate 2 mg 10/22/24 21:08 10/23/24 00:23 Morphine Sulfate (*Crx) 2 Mg/Ml Inj IV PUSH 2 mg Q4H PRN Administration Pain Rated 7-10 Naloxone HCl 0.1 mg 10/22/24 21:08 Naloxone Hcl 0.4 Mg/Ml Vial IV PUSH Q2M PRN Opiate Reversal Nicotine 1 patch 10/23/24 00:40 10/23/24 08:46 Nicotine (*Pbkc) 21 Mg Patch TRANSDERM 1 patch DAILY BETTINA Administration Ondansetron HCl 4 mg 10/22/24 21:08 10/23/24 00:23 Ondansetron Inj 4 Mg/2 Ml Vial IV PUSH 4 mg Q6H PRN Administration Nausea And Vomiting Labs Labs: Laboratory Results - last 24 hr 10/23/24 10/23/24 05:15 10:10 WBC 12.6 H RBC 4.33 Hgb 13.7 Hct 40.5 MCV 93.5 MCH 31.6 MCHC 33.8 RDW 15.5 H Plt Count 141 L MPV 10.3 Immature Gran % (Auto) 0.4 Neut % (Auto) 55.6 Lymph % (Auto) 30.5 [place] % (Auto) 7.5 Eos % (Auto) 5.4 H Baso % (Auto) 0.6 Lymph # (Auto) 3.85 H [place] # (Auto) 1.0 H Eos # (Auto) 0.7 H Baso # (Auto) 0.1 Abs Immat Gran (auto) 0.05 H Absolute Neuts (auto) 7.0 H Absolute Nucleated RBC 0.000 Nucleated RBC % 0.0 Sodium 133 L Potassium 3.4 Chloride 103 Carbon Dioxide 24 Anion Gap 6 BUN 14 D Creatinine 0.61 L Estim Creat Clear Calc 63 Estimated GFR > 60 Glucose 76 Calcium 7.8 L C. difficile (PCR) Negative Quality VTE Prophylaxis VTE prophylaxis: pharmacologic ordered (Lovenox 40 mg subQ daily)
[2024-10-23 14:00] VITALS: BP 149/86; PULSE 95; RESP 17; TEMP 37.4; O2SAT 101
[2024-10-23] MEDS: cefTRIAXone 2 GM in SODIUM CHLORIDE 0.9% IV 100 ML 200 ML IVPB (14:30)
[2024-10-23 20:00] VITALS: O2SAT 94
[2024-10-23 20:16] VITALS: BP 172/89; PULSE 107; RESP 16; TEMP 36.8; O2SAT 94
[2024-10-24 05:18] VITALS: BP 165/90; PULSE 99; RESP 20; TEMP 36.9; O2SAT 100
[2024-10-24 05:53] LABS: Hematocrit 39.2 % (37.0-47.0); Hemoglobin 13.3 g/dL (12.0-15.0); Immature Platelet Fraction Pct 5.4 % (0.9-11.2); Mean Corpuscular HGB Conc 33.9 g/dl (32-36); Mean Corpuscular Hemoglobin 31.7 pg (26-34); Mean Corpuscular Volume 93.3 fl (80-100); Platelet Count Result 114 k/mm3 (150-375); Red Blood Count 4.20 M/mm3 (4.2-5.4); White Blood Count 8.1 K/mm3 (4.5-10.0)
[2024-10-24] MEDS: ACETAMINOPHEN 325 MG TABLET 650 MG PO ×2 (06:07→20:55)
[2024-10-24] MEDS: SODIUM CHLORIDE 0.9% IV 1,000 ML 100 ML IV CONT (06:08)
[2024-10-24 06:19] LABS: Anion Gap 5 mmol/L (4-12); Blood Urea Nitrogen 3 mg/dL (7-17); Calcium 8.2 mg/dL (8.4-10.2); Carbon Dioxide 30 mmol/L (22-30); Chloride 101 mmol/L (98-107); Estimated CRCL calculation 71 ml/min; Estimated Glomerular Filt Rate > 60; Glucose 92 mg/dL (65-110); Potassium 3.0 mmol/L (3.4-5.0); Sodium 136 mmol/L (137-145)
[2024-10-24] MEDS: POTASSIUM CHLORIDE 20 MEQ PACKET (FOR LIQUID) 40 MEQ PO (08:27)
[2024-10-24] MEDS: FLUCONAZOLE 100 MG TABLET PO (08:29)
[2024-10-24] MEDS: ASPIRIN 81 MG ENTERIC TABLET PO (08:31)
[2024-10-24] MEDS: CYANOCOBALAMIN 500 MCG TABLET PO (08:31)
[2024-10-24] MEDS: FOLIC ACID 1 MG TABLET PO (08:31)
--- NOTE | 2024-10-24 08:47 | P.PNIM_ITS ---
Progress Note: A&P Assessment and Plan (1) Acute colitis: Code(s): K52.9 - Noninfective gastroenteritis and colitis, unspecified Status: Acute Assessment and Plan: CT chest/abdomen/pelvis: Distal transverse colon and sigmoid colon wall thickening as can be seen with infectious, inflammatory, or ischemic colitis. - Antibiotics: Started on zosyn, transitioned to rocephin and flagyl on 10/23. - Blood cultures pending - Stool cultures pending and C diff negative - Monitor vital signs, I&Os, track stool output, watch for bloody stools, neuro status and patient is a fall risk - Monitor serum electrolytes and CBC - Gentle IV fluid resuscitation - Diet: full liquid. Per surgery, advance to soft diet tomorrow if she remains pain free. - Surgery consulted (2) Pneumonia: Qualifiers: Laterality: unspecified laterality Lung location: unspecified part of lung Pneumonia type: due to unspecified organism Qualified Code(s): J18.9 - Pneumonia, unspecified organism Code(s): J18.9 - Pneumonia, unspecified organism Status: Acute Assessment and Plan: Chest/abdomen/pelvis CT: Dependent left lower lobe tree-in-bud opacities may represent atypical infection or aspiration. Slightly decreased size of the right upper lobe cavitary lesion. - Risk factors: Perfuse vomiting secondary to colitis. Denies any issues or cough related to eating/drinking - antibiotics tx: Started on zosyn, transitioned to rocephin and flagyl on 10/23. - Viral PCR: negative for Flu/COVID/RSV - no supplemental O2 requirement - Monitor vital signs, I&Os, neuro status and patient is a fall risk - Follow WBC, serum electrolytes, temperature curves and cultures (3) Lactic acidosis: Code(s): E87.20 - Acidosis, unspecified Status: Acute Assessment and Plan: Lactic acid 2.3 repeat remains elevated. Resumed NS at 75 ml/hr x1 500 ml bolus Monitor (4) Nicotine dependence: Qualifiers: Nicotine product type: cigarettes Substance use status: unspecified nicotine-induced disorder Qualified Code(s): F17.219 - Nicotine dependence, cigarettes, with unspecified nicotine-induced disorders Code(s): F17.200 - Nicotine dependence, unspecified, uncomplicated Status: Chronic Assessment and Plan: Encourage cessation (5) Splenic artery aneurysm: Code(s): I72.8 - Aneurysm of other specified arteries Status: Acute Assessment and Plan: CT chest/abdomen/pelvis: 9 mm splenic artery aneurysm. Consider annual surveillance. Time Spent With Patient Time with patient: 25 - 35 minutes Subjective Date/time seen: 10/24/24 08:47 Interval history: 74-year-old female with a past medical history of COPD, hemochromatosis, cirrhosis, former heavy alcohol use, bowel resection, essential hypertension who presented to the ER at [facility] due to abdominal pain, cough and nausea vomiting and was transferred to [facility] for further evaluation and surgical services. Patient is pleasant lying comfortably in bed. She states that she is tolerating her current full liquid diet well and denies any associated nausea/vomiting and diarrhea. She does endorse slight abdominal pain that she relates more to gas. She notes that the IV fluids have caused her to urinate a lot and she has been ambulating back and forth to the restroom independently. She denies any associated weakness/dizziness/lightheadedness at that time. She has no other complaints chest pain, shortness a breath and palpitations. Review of Systems Review of Systems: All systems reviewed & are unremarkable except as noted in HPI and below Exam Narrative: AF HR 79 RR 14 Spo2 97 BP 147/82 General: female in no acute respiratory distress who is nontoxic appearing, lying semi recumbent in bed. HEENT: Normocephalic. Atraumatic. Extraocular movement intact. Sclera clear and anicteric.No facial asymmetry. Chest: Lungs are diminished to auscultation bilaterally to the bases. No wheezes or crackles. CV: Heart was regular rate and rhythm. S1-S2. No murmurs, gallops, or rubs. Abd: Abdomen was soft. Nontender. Nondistended. Positive bowel sounds. Ext: No clubbing, cyanosis, or edema. DP pulses bilaterally. Neuro: Patient is alert. Speech is clear. Objective Data Vital Signs Vital Signs: Vital Signs - 24 hr 10/23/24 14:00 10/23/24 20:00 10/23/24 20:16 Temperature 99.3 F 98.2 F Pulse Rate 95 107 H Respiratory Rate 17 16 Blood Pressure 149/86 H 172/89 H Pulse Oximetry 101 H 94 94 Oxygen Delivery Nasal Cannula Oxygen Flow Rate 2 10/24/24 05:18 Temperature 98.5 F Pulse Rate 99 Respiratory Rate 20 Blood Pressure 165/90 H Pulse Oximetry 100 Oxygen Delivery Oxygen Flow Rate Intake/Output Intake/Output: Intake & Output 10/21/24 10/22/24 10/23/24 10/24/24 23:59 23:59 23:59 23:59 Intake Total 0 1941 Output Total 100 Balance 2430 1941 Meds/Results Medications: Active Medications Generic Name Dose Route Start Last Admin Trade Name Freq PRN Reason Stop Dose Admin Acetaminophen 650 mg 10/22/24 21:08 10/24/24 06:07 Acetaminophen 325 Mg Tablet PO 650 mg Q4H PRN Administration Mild Pain (1-3) or Fever Hydrocodone Bitart/Acetaminophen 1 tab 10/22/24 21:08 Hydrocodone/Acetaminophen (*Crx) 5-325 Mg Tablet PO Q4H PRN Moderate Pain (4-6) Albuterol 2 puff 10/22/24 21:14 Albuterol Sulfate (*Sp) Aerosol 1 Puff INHALATION Q6HRT PRN shortness of breath or wheezing Aspirin 81 mg 10/23/24 09:00 10/24/24 08:31 Aspirin 81 Mg Enteric Tablet PO 81 mg DAILY BETTINA Administration Cyanocobalamin 500 mcg 10/23/24 09:00 10/24/24 08:31 Cyanocobalamin 500 Mcg Tablet PO 500 mcg DAILY BETTIAN Administration Enoxaparin Sodium 40 mg 10/23/24 09:00 10/24/24 08:25 Enoxaparin 40 Mg/0.4 Ml Syringe SUB-Q Not Given DAILY BETTINA Fluconazole 100 mg 10/24/24 09:00 10/24/24 08:29 Fluconazole 100 Mg Tablet PO 10/29/24 09:01 100 mg QAM BETTINA Administration Fluticasone/Umeclidinium/Vilanterol 1 puff 10/23/24 09:00 10/23/24 08:19 Fluticasone/Umeclidin/Vilanter 100-62.5-25 Mcg Ellipta INHALATION 1 puff DAILY BETTINA Administration Folic Acid 1 mg 10/23/24 09:00 10/24/24 08:31 Folic Acid 1 Mg Tablet PO 1 mg DAILY BETTINA Administration Sodium Chloride 1,000 mls @ 100 mls/hr 10/22/24 21:10 10/24/24 06:08 Normal Saline Iv IV CONT 100 mls/hr .Q10H BETTINA Administration Ceftriaxone Sodium 2 gm/ 100 mls @ 200 mls/hr 10/23/24 15:00 10/23/24 14:30 Sodium Chloride IVPB 200 mls/hr Q24H BETTINA Administration Metronidazole 500 mg 10/23/24 14:15 10/24/24 05:56 Metronidazole 500 Mg Tablet PO 500 mg Q8HR BETTINA Administration Morphine Sulfate 2 mg 10/22/24 21:08 10/23/24 00:23 Morphine Sulfate (*Crx) 2 Mg/Ml Inj IV PUSH 2 mg Q4H PRN Administration Pain Rated 7-10 Naloxone HCl 0.1 mg 10/22/24 21:08 Naloxone Hcl 0.4 Mg/Ml Vial IV PUSH Q2M PRN Opiate Reversal Nicotine 1 patch 10/23/24 00:40 10/23/24 08:46 Nicotine (*Pbkc) 21 Mg Patch TRANSDERM 1 patch DAILY BETTINA Administration Ondansetron HCl 4 mg 10/22/24 21:08 10/23/24 00:23 Ondansetron Inj 4 Mg/2 Ml Vial IV PUSH 4 mg Q6H PRN Administration Nausea And Vomiting Labs Labs: Laboratory Results - last 24 hr 10/23/24 10/24/24 10/24/24 10:10 05:31 05:36 WBC 8.1 RBC 4.20 Hgb 13.3 Hct 39.2 MCV 93.3 MCH 31.7 MCHC 33.9 RDW 15.2 H Plt Count 114 L MPV 10.3 % Immature Plt Fraction 5.4 Sodium 136 L Potassium 3.0 L Chloride 101 Carbon Dioxide 30 Anion Gap 5 BUN 3 L D Creatinine 0.53 L Estim Creat Clear Calc 71 Estimated GFR > 60 Glucose 92 Calcium 8.2 L C. difficile (PCR) Negative Quality VTE Prophylaxis VTE prophylaxis: pharmacologic ordered (Lovenox 40 mg subQ daily)
[2024-10-24] MEDS: FLUTICASONE/UMECLIDIN/VILANTER 100-62.5-25 MCG ELLIPTA 1 PUFF INHALATION (09:10)
[2024-10-24 09:12] VITALS: PULSE 84; RESP 20
--- NOTE | 2024-10-24 13:31 | PM.PNGS ---
Progress Note: A&P Assessment and Plan (1) Acute colitis: Code(s): K52.9 - Noninfective gastroenteritis and colitis, unspecified Status: Acute Assessment and Plan: No signs of worsening colitis, but Lactate still slightly elevated. BP stable and WBC normal. Continue Ceftriaxone and metronidazole Would like patient to have a full 24 hours without pain before discharging home. Advance to soft diet tomorrow if she remains pain free. (2) Nicotine dependence: Qualifiers: Nicotine product type: cigarettes Substance use status: unspecified nicotine-induced disorder Qualified Code(s): F17.219 - Nicotine dependence, cigarettes, with unspecified nicotine-induced disorders Code(s): F17.200 - Nicotine dependence, unspecified, uncomplicated Status: Chronic Assessment and Plan: Encourage cessation Subjective Subjective Date/Time Seen: 10/24/24 13:31 Interval history: Had some pain early this morning but now resolved. [place] like it was more gas pains than anything. Had soft formed BM today. No diarrhea. No hematochezia. Tolerating full liquids. Exam GI: Inspection: non-distended GI Palp: Yes Soft to palpation, No Tenderness to palpation present (GI), No Guarding due to palpation present (GI) and No Rebound tenderness present Auscultation: normal bowel sounds Objective Data Vital Signs Vital Signs: Vital Signs - 24 hr 10/23/24 14:00 10/23/24 20:00 10/23/24 20:16 Temperature 99.3 F 98.2 F Pulse Rate 95 107 H Respiratory Rate 17 16 Blood Pressure 149/86 H 172/89 H Pulse Oximetry 101 H 94 94 Oxygen Delivery Nasal Cannula Oxygen Flow Rate 2 10/24/24 05:18 10/24/24 09:12 Temperature 98.5 F Pulse Rate 99 84 Respiratory Rate 20 20 Blood Pressure 165/90 H Pulse Oximetry 100 Oxygen Delivery Oxygen Flow Rate Intake/Output Intake/Output: Intake & Output 10/21/24 10/22/24 10/23/24 10/24/24 23:59 23:59 23:59 23:59 Intake Total 2530 2972 Output Total 100 Balance 2430 2972 Meds/Results Medications: Active Medications Generic Name Dose Route Start Last Admin Trade Name Freq PRN Reason Stop Dose Admin Acetaminophen 650 mg 10/22/24 21:08 10/24/24 06:07 Acetaminophen 325 Mg Tablet PO 650 mg Q4H PRN Administration Mild Pain (1-3) or Fever Hydrocodone Bitart/Acetaminophen 1 tab 10/22/24 21:08 Hydrocodone/Acetaminophen (*Crx) 5-325 Mg Tablet PO Q4H PRN Moderate Pain (4-6) Albuterol 2 puff 10/22/24 21:14 Albuterol Sulfate (*Sp) Aerosol 1 Puff INHALATION Q6HRT PRN shortness of breath or wheezing Aspirin 81 mg 10/23/24 09:00 10/24/24 08:31 Aspirin 81 Mg Enteric Tablet PO 81 mg DAILY BETTINA Administration Cyanocobalamin 500 mcg 10/23/24 09:00 10/24/24 08:31 Cyanocobalamin 500 Mcg Tablet PO 500 mcg DAILY BETTINA Administration Enoxaparin Sodium 40 mg 10/23/24 09:00 10/24/24 08:25 Enoxaparin 40 Mg/0.4 Ml Syringe SUB-Q Not Given DAILY BETTINA Fluconazole 100 mg 10/24/24 09:00 10/24/24 08:29 Fluconazole 100 Mg Tablet PO 10/29/24 09:01 100 mg QAM BETTINA Administration Fluticasone/Umeclidinium/Vilanterol 1 puff 10/23/24 09:00 10/24/24 09:10 Fluticasone/Umeclidin/Vilanter 100-62.5-25 Mcg Ellipta INHALATION 1 puff DAILY BETTINA Administration Folic Acid 1 mg 10/23/24 09:00 10/24/24 08:31 Folic Acid 1 Mg Tablet PO 1 mg DAILY BETTINA Administration Ceftriaxone Sodium 2 gm/ 100 mls @ 200 mls/hr 10/23/24 15:00 10/23/24 14:30 Sodium Chloride IVPB 200 mls/hr Q24H BETTINA Administration Metronidazole 500 mg 10/23/24 14:15 10/24/24 05:56 Metronidazole 500 Mg Tablet PO 500 mg Q8HR BETTINA Administration Morphine Sulfate 2 mg 10/22/24 21:08 10/23/24 00:23 Morphine Sulfate (*Crx) 2 Mg/Ml Inj IV PUSH 2 mg Q4H PRN Administration Pain Rated 7-10 Naloxone HCl 0.1 mg 10/22/24 21:08 Naloxone Hcl 0.4 Mg/Ml Vial IV PUSH Q2M PRN Opiate Reversal Nicotine 1 patch 10/23/24 00:40 10/23/24 08:46 Nicotine (*Pbkc) 21 Mg Patch TRANSDERM 1 patch DAILY BETTINA Administration Ondansetron HCl 4 mg 10/22/24 21:08 10/23/24 00:23 Ondansetron Inj 4 Mg/2 Ml Vial IV PUSH 4 mg Q6H PRN Administration Nausea And Vomiting Labs Labs: Laboratory Results - last 24 hr 10/24/24 10/24/24 10/24/24 05:31 05:36 09:22 WBC 8.1 RBC 4.20 Hgb 13.3 Hct 39.2 MCV 93.3 MCH 31.7 MCHC 33.9 RDW 15.2 H Plt Count 114 L MPV 10.3 % Immature Plt Fraction 5.4 Sodium 136 L Potassium 3.0 L Chloride 101 Carbon Dioxide 30 Anion Gap 5 BUN 3 L D Creatinine 0.53 L Estim Creat Clear Calc 71 Estimated GFR > 60 Glucose 92 Lactic Acid 2.7 H Calcium 8.2 L 10/24/24 11:42 WBC RBC Hgb Hct MCV MCH MCHC RDW Plt Count MPV % Immature Plt Fraction Sodium Potassium Chloride Carbon Dioxide Anion Gap BUN Creatinine Estim Creat Clear Calc Estimated GFR Glucose Lactic Acid 2.4 H Calcium
[2024-10-24] MEDS: cefTRIAXone 2 GM in SODIUM CHLORIDE 0.9% IV 100 ML 200 ML IVPB (13:59)
[2024-10-24 14:00] VITALS: BP 147/82; PULSE 79; RESP 14; TEMP 37.1; O2SAT 97
[2024-10-24] MEDS: SODIUM CHLORIDE 0.9% IV 500 ML 75 ML IV CONT (14:38)
[2024-10-24 20:00] VITALS: O2SAT 97
[2024-10-24 21:30] VITALS: BP 148/69; PULSE 80; RESP 13; TEMP 36.4; O2SAT 97
[2024-10-25 05:48] VITALS: BP 170/74; PULSE 67; RESP 13; TEMP 36.4; O2SAT 99
[2024-10-25 06:07] LABS: Hematocrit 40.3 % (37.0-47.0); Hemoglobin 13.5 g/dL (12.0-15.0); Immature Platelet Fraction Pct 7.2 % (0.9-11.2); Mean Corpuscular HGB Conc 33.5 g/dl (32-36); Mean Corpuscular Hemoglobin 32.1 pg (26-34); Mean Corpuscular Volume 95.7 fl (80-100); Platelet Count Result 107 k/mm3 (150-375); Red Blood Count 4.21 M/mm3 (4.2-5.4); White Blood Count 7.8 K/mm3 (4.5-10.0)
[2024-10-25 06:40] LABS: Anion Gap 6 mmol/L (4-12); Blood Urea Nitrogen 6 mg/dL (7-17); Calcium 9.1 mg/dL (8.4-10.2); Carbon Dioxide 32 mmol/L (22-30); Chloride 100 mmol/L (98-107); Estimated CRCL calculation 64 ml/min; Estimated Glomerular Filt Rate > 60; Glucose 70 mg/dL (65-110); Potassium 3.4 mmol/L (3.4-5.0); Sodium 138 mmol/L (137-145)
[2024-10-25] MEDS: ASPIRIN 81 MG ENTERIC TABLET PO (08:18)
[2024-10-25] MEDS: FOLIC ACID 1 MG TABLET PO (08:19)
[2024-10-25] MEDS: CYANOCOBALAMIN 500 MCG TABLET PO (08:19)
[2024-10-25] MEDS: FLUCONAZOLE 100 MG TABLET PO (08:19)
[2024-10-25] MEDS: FLUTICASONE/UMECLIDIN/VILANTER 100-62.5-25 MCG ELLIPTA 1 PUFF INHALATION (08:42)
[2024-10-25 09:00] VITALS: O2SAT 93
--- NOTE | 2024-10-25 10:41 | P.PNIM_ITS ---
Progress Note: A&P Assessment and Plan (1) Ileus: Code(s): K56.7 - Ileus, unspecified Status: Acute Assessment and Plan: Patient endorsing increased abdominal pain, worsened with meals. Relates this more to a gas discomfort. Denies nausea/vomiting. Passing small stools. CT abdomen/pelvis 10/25: Mild acute diverticulitis sigmoid colon. Dilated fluid- filled small bowel left midabdomen with air-fluid levels. No definitive transition site identified. Findings suggest either focal adynamic ileus or partial obstruction. Consider correlation with small bowel follow-through study - CRP ordered - No need for NG tube at this time as patient denies nausea and vomiting - Transitioned down to clear liquid diet, advance as tolerated - Bowel regimen: Miralax and senna - Surgery consulted Repeat CT obtained and no signs of perforation or abscess. Might need to consider changing antibiotics, but still no clear surgical indications. Will continue to follow. (2) Acute colitis: Code(s): K52.9 - Noninfective gastroenteritis and colitis, unspecified Status: Acute Assessment and Plan: CT chest/abdomen/pelvis: Distal transverse colon and sigmoid colon wall thickening as can be seen with infectious, inflammatory, or ischemic colitis. - Antibiotics: Started on zosyn, transitioned to rocephin and flagyl on 10/23. - Blood cultures NGTD - Stool cultures pending and C diff negative - Monitor vital signs, I&Os, track stool output, watch for bloody stools, neuro status and patient is a fall risk - Monitor serum electrolytes and CBC - Gentle IV fluid resuscitation - Diet: clear liquid - Surgery consulted Repeat CT obtained and no signs of perforation or abscess. Might need to consider changing antibiotics, but still no clear surgical indications. Will continue to follow. (3) Pneumonia: Qualifiers: Laterality: unspecified laterality Lung location: unspecified part of lung Pneumonia type: due to unspecified organism Qualified Code(s): J18.9 - Pneumonia, unspecified organism Code(s): J18.9 - Pneumonia, unspecified organism Status: Acute Assessment and Plan: Chest/abdomen/pelvis CT: Dependent left lower lobe tree-in-bud opacities may represent atypical infection or aspiration. Slightly decreased size of the right upper lobe cavitary lesion. - Risk factors: Perfuse vomiting secondary to colitis. Denies any issues or cough related to eating/drinking - antibiotics tx: Started on zosyn, transitioned to rocephin and flagyl on 10/23. - Viral PCR: negative for Flu/COVID/RSV - no supplemental O2 requirement - Monitor vital signs, I&Os, neuro status and patient is a fall risk - Follow WBC, serum electrolytes, temperature curves and cultures Denies shortness of breath and cough. (4) Lactic acidosis: Code(s): E87.20 - Acidosis, unspecified Status: Acute Assessment and Plan: Lactic acid 2.3 repeat has returned to WNL (5) Nicotine dependence: Qualifiers: Nicotine product type: cigarettes Substance use status: unspecified nicotine-induced disorder Qualified Code(s): F17.219 - Nicotine dependence, cigarettes, with unspecified nicotine-induced disorders Code(s): F17.200 - Nicotine dependence, unspecified, uncomplicated Status: Chronic Assessment and Plan: Encourage cessation (6) Splenic artery aneurysm: Code(s): I72.8 - Aneurysm of other specified arteries Status: Acute Assessment and Plan: CT chest/abdomen/pelvis: 9 mm splenic artery aneurysm. Consider annual surveillance. Time Spent With Patient Time with patient: 25 - 35 minutes Subjective Date/time seen: 10/25/24 10:41 Interval history: 74-year-old female with a past medical history of COPD, hemochromatosis, cirrhosis, former heavy alcohol use, bowel resection, essential hypertension who presented to the ER at [facility] due to abdominal pain, cough and nausea vomiting and was transferred to [facility] for further evaluation and surgical services. Patient is pleasant lying in bed. She is endorsing increased abdominal pain more so related to her current diet. She denies any associated nausea or vomiting. She states that she is still passing small stools. CT showing concern for possible ileus. Per surgery no acute intervention required. Patient has no other complaints denying chest pain, palpitations, shortness of breath. Review of Systems Review of Systems: All systems reviewed & are unremarkable except as noted in HPI and below Exam Narrative: AF HR 67 RR 13 SpO2 93 BP 170/74 General: female in no acute respiratory distress who is nontoxic appearing, lying semi recumbent in bed. HEENT: Normocephalic. Atraumatic. Extraocular movement intact. Sclera clear and anicteric.No facial asymmetry. Chest: Lungs are clear to auscultation bilaterally. No wheezes or crackles. CV: Heart was regular rate and rhythm. S1-S2. No murmurs, gallops, or rubs. Abd: Abdomen was soft. Tender to palpation with guarding. Nondistended. Positive bowel sounds. Ext: No clubbing, cyanosis, or edema. DP pulses bilaterally. Neuro: Patient is alert. Speech is clear. Objective Data Vital Signs Vital Signs: Vital Signs - 24 hr 10/24/24 14:00 10/24/24 20:00 10/24/24 21:30 Temperature 98.8 F 97.5 F L Pulse Rate 79 80 Respiratory Rate 14 13 Blood Pressure 147/82 H 148/69 H Pulse Oximetry 97 97 97 Oxygen Delivery Nasal Cannula Oxygen Flow Rate 2 10/25/24 05:48 10/25/24 09:00 Temperature 97.5 F L Pulse Rate 67 Respiratory Rate 13 Blood Pressure 170/74 H Pulse Oximetry 99 93 Oxygen Delivery Room Air Oxygen Flow Rate Intake/Output Intake/Output: Intake & Output 10/22/24 10/23/24 10/24/24 10/25/24 23:59 23:59 23:59 23:59 Intake Total 2630 3544 600 Output Total 100 Balance 2530 3544 600 Meds/Results Medications: Active Medications Generic Name Dose Route Start Last Admin Trade Name Freq PRN Reason Stop Dose Admin Acetaminophen 650 mg 10/22/24 21:08 10/24/24 20:55 Acetaminophen 325 Mg Tablet PO 650 mg Q4H PRN Administration Mild Pain (1-3) or Fever Hydrocodone Bitart/Acetaminophen 1 tab 10/22/24 21:08 Hydrocodone/Acetaminophen (*Crx) 5-325 Mg Tablet PO Q4H PRN Moderate Pain (4-6) Albuterol 2 puff 10/22/24 21:14 Albuterol Sulfate (*Sp) Aerosol 1 Puff INHALATION Q6HRT PRN shortness of breath or wheezing Aspirin 81 mg 10/23/24 09:00 10/25/24 08:18 Aspirin 81 Mg Enteric Tablet PO 81 mg DAILY BETTINA Administration Cyanocobalamin 500 mcg 10/23/24 09:00 10/25/24 08:19 Cyanocobalamin 500 Mcg Tablet PO 500 mcg DAILY BETTINA Administration Enoxaparin Sodium 40 mg 10/23/24 09:00 10/24/24 08:25 Enoxaparin 40 Mg/0.4 Ml Syringe SUB-Q Not Given DAILY BETTINA Fluconazole 100 mg 10/24/24 09:00 10/25/24 08:19 Fluconazole 100 Mg Tablet PO 10/29/24 09:01 100 mg QAM BETTINA Administration Fluticasone/Umeclidinium/Vilanterol 1 puff 10/23/24 09:00 10/25/24 08:42 Fluticasone/Umeclidin/Vilanter 100-62.5-25 Mcg Ellipta INHALATION 1 puff DAILY BETTINA Administration Folic Acid 1 mg 10/23/24 09:00 10/25/24 08:19 Folic Acid 1 Mg Tablet PO 1 mg DAILY BETTINA Administration Ceftriaxone Sodium 2 gm/ 100 mls @ 200 mls/hr 10/23/24 15:00 10/24/24 14:29 Sodium Chloride IVPB Infused Q24H BETTINA Infusion Metronidazole 500 mg 10/23/24 14:15 10/25/24 05:54 Metronidazole 500 Mg Tablet PO 500 mg Q8HR BETTINA Administration Morphine Sulfate 2 mg 10/22/24 21:08 10/23/24 00:23 Morphine Sulfate (*Crx) 2 Mg/Ml Inj IV PUSH 2 mg Q4H PRN Administration Pain Rated 7-10 Naloxone HCl 0.1 mg 10/22/24 21:08 Naloxone Hcl 0.4 Mg/Ml Vial IV PUSH Q2M PRN Opiate Reversal Nicotine 1 patch 10/23/24 00:40 10/23/24 08:46 Nicotine (*Pbkc) 21 Mg Patch TRANSDERM 1 patch DAILY BETTINA Administration Ondansetron HCl 4 mg 10/22/24 21:08 10/23/24 00:23 Ondansetron Inj 4 Mg/2 Ml Vial IV PUSH 4 mg Q6H PRN Administration Nausea And Vomiting Radiology Results: ITS Impressions Abdomen/Pelvis CT 10/25/24 10:31 IMPRESSION: 1. Mild acute diverticulitis sigmoid colon. 2: Dilated fluid-filled small bowel left midabdomen with air-fluid levels. No definitive transition site identified. Findings suggest either focal adynamic ileus or partial obstruction. Consider correlation with small bowel follow- through study. Labs Labs: Laboratory Results - last 24 hr 10/24/24 10/25/24 11:42 05:59 WBC 7.8 RBC 4.21 Hgb 13.5 Hct 40.3 MCV 95.7 MCH 32.1 MCHC 33.5 RDW 15.0 H Plt Count 107 L MPV 10.4 % Immature Plt Fraction 7.2 Sodium 138 Potassium 3.4 Chloride 100 Carbon Dioxide 32 H Anion Gap 6 BUN 6 L Creatinine 0.60 L Estim Creat Clear Calc 64 Estimated GFR > 60 Glucose 70 Lactic Acid 2.4 H 0.9 Calcium 9.1 Quality VTE Prophylaxis VTE prophylaxis: pharmacologic ordered (Lovenox 40 mg subQ daily)
[2024-10-25 14:00] VITALS: BP 150/87; PULSE 68; RESP 188; TEMP 36.4; O2SAT 97
[2024-10-25 14:01] LABS: CRP 1.3 mg/dL (<1.0)
[2024-10-25] MEDS: SIMETHICONE 80 MG TAB.CHEW PO ×3 (14:59→20:08)
[2024-10-25] MEDS: cefTRIAXone 2 GM in SODIUM CHLORIDE 0.9% IV 100 ML 200 ML IVPB (15:04)
[2024-10-25 20:00] VITALS: O2SAT 99
[2024-10-25] MEDS: SENNA/DOCUSATE SODIUM TABLET 1 TAB PO (20:06)
[2024-10-25] MEDS: ACETAMINOPHEN 325 MG TABLET 650 MG PO (20:06)
[2024-10-25 20:07] VITALS: BP 161/75; PULSE 87; RESP 16; TEMP 36.8; O2SAT 99
--- NOTE | 2024-10-26 01:57 | PC.NURSE ---
On 10/26/24, the RN, Sushila, provided care and completed [facility] documentation on this patient. I have reviewed the RN's documentation and agree with the findings.
[2024-10-26 04:39] VITALS: BP 154/73; PULSE 61; RESP 18; TEMP 36.2; O2SAT 97
[2024-10-26 06:43] LABS: Hematocrit 36.9 % (37.0-47.0); Hemoglobin 12.5 g/dL (12.0-15.0); Immature Platelet Fraction Pct 7.3 % (0.9-11.2); Mean Corpuscular HGB Conc 33.9 g/dl (32-36); Mean Corpuscular Hemoglobin 32.2 pg (26-34); Mean Corpuscular Volume 95.1 fl (80-100); Platelet Count Result 110 k/mm3 (150-375); Red Blood Count 3.88 M/mm3 (4.2-5.4); White Blood Count 6.8 K/mm3 (4.5-10.0)
[2024-10-26 07:11] LABS: Anion Gap 3 mmol/L (4-12); Blood Urea Nitrogen 8 mg/dL (7-17); Calcium 9.5 mg/dL (8.4-10.2); Carbon Dioxide 33 mmol/L (22-30); Chloride 99 mmol/L (98-107); Estimated CRCL calculation 67 ml/min; Estimated Glomerular Filt Rate > 60; Glucose 85 mg/dL (65-110); Potassium 3.2 mmol/L (3.4-5.0); Sodium 135 mmol/L (137-145)
[2024-10-26] MEDS: FLUTICASONE/UMECLIDIN/VILANTER 100-62.5-25 MCG ELLIPTA 1 PUFF INHALATION (08:04)
[2024-10-26 08:07] VITALS: PULSE 75; O2SAT 97
[2024-10-26] MEDS: CYANOCOBALAMIN 500 MCG TABLET PO (08:58)
[2024-10-26] MEDS: FLUCONAZOLE 100 MG TABLET PO (08:58)
[2024-10-26] MEDS: ASPIRIN 81 MG ENTERIC TABLET PO (08:58)
[2024-10-26] MEDS: FOLIC ACID 1 MG TABLET PO (08:59)
[2024-10-26] MEDS: NICOTINE (*PBKC) 21 MG PATCH 1 PATCH TRANSDERM (08:59)
[2024-10-26] MEDS: SIMETHICONE 80 MG TAB.CHEW PO ×4 (08:59→20:26)
[2024-10-26] MEDS: HYDROcodone/acetaminophen (*CRX) 5-325 MG TABLET 1 TAB PO (09:06)
--- NOTE | 2024-10-26 13:47 | P.PNGS_ITS ---
Progress Note: A&P Assessment and Plan (1) Acute colitis: Code(s): K52.9 - Noninfective gastroenteritis and colitis, unspecified Status: Acute Assessment and Plan: * CT yesterday demonstrated probable ileus. Patient is now having bowel movements and tolerating regular diet without nausea or vomiting. WBC normal. Lactic acid 0.9. Okay for discharge from surgical standpoint. (2) Nicotine dependence: Qualifiers: Nicotine product type: cigarettes Substance use status: unspecified nicotine-induced disorder Qualified Code(s): F17.219 - Nicotine dependence, cigarettes, with unspecified nicotine-induced disorders Code(s): F17.200 - Nicotine dependence, unspecified, uncomplicated Status: Chronic Assessment and Plan: * Encourage cessation Subjective Subjective Date/Time Seen: 10/26/24 13:47 Patient reports: no new complaints and feels better Interval history: CT of abdomen and pelvis yesterday demonstrated mild acute diverticulitis of the sigmoid colon. Likely ileus. Patient feels much improved today. Having bowel movements. Patient tolerating low-fiber diet without nausea or vomiting. Normal WBC. Exam Const: General: comfortable and no acute distress GI: Inspection: non-distended GI Palp: Yes Soft to palpation, No Tenderness to palpation present (GI) and No Guarding due to palpation present (GI) Objective Data Vital Signs Vital Signs: Vital Signs - 24 hr 10/25/24 14:00 10/25/24 20:00 10/25/24 20:07 Temperature 97.5 F L 98.3 F Pulse Rate 68 87 Respiratory Rate 188 H 16 Blood Pressure 150/87 H 161/75 H Pulse Oximetry 97 99 99 Oxygen Delivery Nasal Cannula Oxygen Flow Rate 2 10/26/24 04:39 10/26/24 08:00 10/26/24 08:07 Temperature 97.2 F L Pulse Rate 61 75 Respiratory Rate 18 Blood Pressure 154/73 H Pulse Oximetry 97 Oxygen Delivery Room Air Oxygen Flow Rate 10/26/24 08:07 Temperature Pulse Rate Respiratory Rate Blood Pressure Pulse Oximetry 97 Oxygen Delivery Room Air Oxygen Flow Rate Intake/Output Intake/Output: Intake & Output 10/23/24 10/24/24 10/25/24 10/26/24 23:59 23:59 23:59 23:59 Intake Total 2630 6144 1300 1080 Output Total 100 Balance 2530 3544 1300 1080 Meds/Results Medications: Active Medications Generic Name Dose Route Start Last Admin Trade Name Freq PRN Reason Stop Dose Admin Acetaminophen 650 mg 10/22/24 21:08 10/25/24 20:06 Acetaminophen 325 Mg Tablet PO 650 mg Q4H PRN Administration Mild Pain (1-3) or Fever Hydrocodone Bitart/Acetaminophen 1 tab 10/22/24 21:08 10/26/24 09:06 Hydrocodone/Acetaminophen (*Crx) 5-325 Mg Tablet PO 1 tab Q4H PRN Administration Moderate Pain (4-6) Albuterol 2 puff 10/22/24 21:14 Albuterol Sulfate (*Sp) Aerosol 1 Puff INHALATION Q6HRT PRN shortness of breath or wheezing Aspirin 81 mg 10/23/24 09:00 10/26/24 08:58 Aspirin 81 Mg Enteric Tablet PO 81 mg DAILY BETTINA Administration Cyanocobalamin 500 mcg 10/23/24 09:00 10/26/24 08:58 Cyanocobalamin 500 Mcg Tablet PO 500 mcg DAILY BETTINA Administration Enoxaparin Sodium 40 mg 10/23/24 09:00 10/26/24 09:04 Enoxaparin 40 Mg/0.4 Ml Syringe SUB-Q Not Given DAILY BETITNA Fluconazole 100 mg 10/24/24 09:00 10/26/24 08:58 Fluconazole 100 Mg Tablet PO 10/29/24 09:01 100 mg QAM BETTINA Administration Fluticasone/Umeclidinium/Vilanterol 1 puff 10/23/24 09:00 10/26/24 08:04 Fluticasone/Umeclidin/Vilanter 100-62.5-25 Mcg Ellipta INHALATION 1 puff DAILY BETTINA Administration Folic Acid 1 mg 10/23/24 09:00 10/26/24 08:59 Folic Acid 1 Mg Tablet PO 1 mg DAILY BETTINA Administration Ceftriaxone Sodium 2 gm/ 100 mls @ 200 mls/hr 10/23/24 15:00 10/25/24 15:34 Sodium Chloride IVPB Infused Q24H BETTINA Infusion Metronidazole 500 mg 10/23/24 14:15 10/26/24 06:21 Metronidazole 500 Mg Tablet PO 500 mg Q8HR BETTINA Administration Morphine Sulfate 2 mg 10/22/24 21:08 10/23/24 00:23 Morphine Sulfate (*Crx) 2 Mg/Ml Inj IV PUSH 2 mg Q4H PRN Administration Pain Rated 7-10 Naloxone HCl 0.1 mg 10/22/24 21:08 Naloxone Hcl 0.4 Mg/Ml Vial IV PUSH Q2M PRN Opiate Reversal Nicotine 1 patch 10/23/24 00:40 10/26/24 08:59 Nicotine (*Pbkc) 21 Mg Patch TRANSDERM 1 patch DAILY BETTINA Administration Ondansetron HCl 4 mg 10/22/24 21:08 10/23/24 00:23 Ondansetron Inj 4 Mg/2 Ml Vial IV PUSH 4 mg Q6H PRN Administration Nausea And Vomiting Polyethylene Glycol 17 gm 10/25/24 14:45 10/26/24 08:59 Polyethylene Glycol 3350 17 Gm Powd.Pack PO 17 gm QAM BETTINA Administration Senna/Docusate Sodium 1 tab 10/25/24 21:00 10/25/24 20:06 Senna/Docusate Sodium Tablet PO 1 tab HS BETTINA Administration Simethicone 80 mg 10/25/24 13:40 10/26/24 08:59 Simethicone 80 Mg Tab.Chew PO 80 mg QID BETTINA Administration Radiology Results: ITS Impressions Abdomen/Pelvis CT 10/25/24 10:31 IMPRESSION: 1. Mild acute diverticulitis sigmoid colon. 2: Dilated fluid-filled small bowel left midabdomen with air-fluid levels. No definitive transition site identified. Findings suggest either focal adynamic ileus or partial obstruction. Consider correlation with small bowel follow- through study. Labs Labs: Laboratory Results - last 24 hr 10/25/24 10/26/24 05:54 06:12 WBC 6.8 RBC 3.88 L Hgb 12.5 Hct 36.9 L MCV 95.1 MCH 32.2 MCHC 33.9 RDW 14.9 H Plt Count 110 L MPV 10.7 H % Immature Plt Fraction 7.3 Sodium 135 L Potassium 3.2 L Chloride 99 Carbon Dioxide 33 H Anion Gap 3 L BUN 8 Creatinine 0.57 L Estim Creat Clear Calc 67 Estimated GFR > 60 Glucose 85 Calcium 9.5 C-Reactive Protein 1.3 H
[2024-10-26 14:00] VITALS: BP 145/60; PULSE 66; RESP 16; TEMP 36.8; O2SAT 96
[2024-10-26] MEDS: cefTRIAXone 2 GM in SODIUM CHLORIDE 0.9% IV 100 ML 200 ML IVPB (14:03)
--- NOTE | 2024-10-26 15:16 | PM.IMPN ---
Progress Note: A&P Assessment and Plan (1) Ileus: Code(s): K56.7 - Ileus, unspecified Status: Acute Assessment and Plan: Patient endorsing increased abdominal pain, worsened with meals. Relates this more to a gas discomfort. Denies nausea/vomiting. Passing small stools. CT abdomen/pelvis 10/25: Mild acute diverticulitis sigmoid colon. Dilated fluid-filled small bowel left midabdomen with air-fluid levels. No definitive transition site identified. Findings suggest either focal adynamic ileus or partial obstruction. Consider correlation with small bowel follow-through study - CRP slightly elevated - No need for NG tube at this time as patient denies nausea and vomiting - Transitioned down to clear liquid diet, advance as tolerated - Bowel regimen: Miralax and senna - Surgery consulted Repeat CT obtained and no signs of perforation or abscess. Might need to consider changing antibiotics, but still no clear surgical indications. Okay to discharge from surgical perspective Patient continues to endorse abdominal pain. Denies nausea/vomiting. Had one small hard pebble BM today. Will advance to low fiber diet. If patient tolerates will DC home tomorrow. (2) Acute colitis: Code(s): K52.9 - Noninfective gastroenteritis and colitis, unspecified Status: Acute Assessment and Plan: CT chest/abdomen/pelvis: Distal transverse colon and sigmoid colon wall thickening as can be seen with infectious, inflammatory, or ischemic colitis. - Antibiotics: Started on zosyn, transitioned to rocephin and flagyl on 10/23. - Blood cultures NGTD - Stool cultures pending and C diff negative - Monitor vital signs, I&Os, track stool output, watch for bloody stools, neuro status and patient is a fall risk - Monitor serum electrolytes and CBC - Gentle IV fluid resuscitation - Diet: clear liquid - Surgery consulted Repeat CT obtained and no signs of perforation or abscess. Might need to consider changing antibiotics, but still no clear surgical indications. Okay to DC from surgical perspective (3) Pneumonia: Qualifiers: Laterality: unspecified laterality Lung location: unspecified part of lung Pneumonia type: due to unspecified organism Qualified Code(s): J18.9 - Pneumonia, unspecified organism Code(s): J18.9 - Pneumonia, unspecified organism Status: Acute Assessment and Plan: Chest/abdomen/pelvis CT: Dependent left lower lobe tree-in-bud opacities may represent atypical infection or aspiration. Slightly decreased size of the right upper lobe cavitary lesion. - Risk factors: Perfuse vomiting secondary to colitis. Denies any issues or cough related to eating/drinking - antibiotics tx: Started on zosyn, transitioned to rocephin and flagyl on 10/23. - Viral PCR: negative for Flu/COVID/RSV - no supplemental O2 requirement - Monitor vital signs, I&Os, neuro status and patient is a fall risk - Follow WBC, serum electrolytes, temperature curves and cultures Denies shortness of breath and cough. (4) Lactic acidosis: Code(s): E87.20 - Acidosis, unspecified Status: Acute Assessment and Plan: Lactic acid 2.3 repeat has returned to WNL (5) Nicotine dependence: Qualifiers: Nicotine product type: cigarettes Substance use status: unspecified nicotine-induced disorder Qualified Code(s): F17.219 - Nicotine dependence, cigarettes, with unspecified nicotine-induced disorders Code(s): F17.200 - Nicotine dependence, unspecified, uncomplicated Status: Chronic Assessment and Plan: Encourage cessation (6) Splenic artery aneurysm: Code(s): I72.8 - Aneurysm of other specified arteries Status: Acute Assessment and Plan: CT chest/abdomen/pelvis: 9 mm splenic artery aneurysm. Consider annual surveillance. Time Spent With Patient Time with patient: 25 - 35 minutes Subjective Date/time seen: 10/26/24 15:16 Interval history: 74-year-old female with a past medical history of COPD, hemochromatosis, cirrhosis, former heavy alcohol use, bowel resection, essential hypertension who presented to the ER at [facility] due to abdominal pain, cough and nausea vomiting and was transferred to [facility] for further evaluation and surgical services. Patient is pleasant sitting up in bed. She continues to endorse abdominal pain but denies any nausea/vomiting. She has had one small hard pebble like bowel movement. She states concern about returning home given discomfort and difficulties with BM. She is tolerating her full liquid diet. Avanced to low fiber. Patient has no other complaints denying chest pain, palpitations, and shortness of breath. Review of Systems Review of Systems: All systems reviewed & are unremarkable except as noted in HPI and below Exam Narrative: AF HR 75 RR 18 SpO2 97 BP 154/73 General: female in no acute respiratory distress who is nontoxic appearing, sitting on the side of bed. HEENT: Normocephalic. Atraumatic. Extraocular movement intact. Sclera clear and anicteric.No facial asymmetry. Chest: Lungs are clear to auscultation bilaterally. No wheezes or crackles. CV: Heart was regular rate and rhythm. S1-S2. No murmurs, gallops, or rubs. Abd: Abdomen was soft. Tender to palpation with guarding. Nondistended. Positive bowel sounds. Ext: No clubbing, cyanosis, or edema. DP pulses bilaterally. Neuro: Patient is alert. Speech is clear. Objective Data Vital Signs Vital Signs: Vital Signs - 24 hr 10/25/24 20:00 10/25/24 20:07 10/26/24 04:39 Temperature 98.3 F 97.2 F L Pulse Rate 87 61 Respiratory Rate 16 18 Blood Pressure 161/75 H 154/73 H Pulse Oximetry 99 99 97 Oxygen Delivery Nasal Cannula Oxygen Flow Rate 2 10/26/24 08:00 10/26/24 08:07 10/26/24 08:07 Temperature Pulse Rate 75 Respiratory Rate Blood Pressure Pulse Oximetry 97 Oxygen Delivery Room Air Room Air Oxygen Flow Rate Intake/Output Intake/Output: Intake & Output 10/23/24 10/24/24 10/25/24 10/26/24 23:59 23:59 23:59 23:59 Intake Total 2630 3544 1300 1080 Output Total 100 Balance 2530 3544 1300 1080 Meds/Results Medications: Active Medications Generic Name Dose Route Start Last Admin Trade Name Freq PRN Reason Stop Dose Admin Acetaminophen 650 mg 10/22/24 21:08 10/25/24 20:06 Acetaminophen 325 Mg Tablet PO 650 mg Q4H PRN Administration Mild Pain (1-3) or Fever Hydrocodone Bitart/Acetaminophen 1 tab 10/22/24 21:08 10/26/24 09:06 Hydrocodone/Acetaminophen (*Crx) 5-325 Mg Tablet PO 1 tab Q4H PRN Administration Moderate Pain (4-6) Albuterol 2 puff 10/22/24 21:14 Albuterol Sulfate (*Sp) Aerosol 1 Puff INHALATION Q6HRT PRN shortness of breath or wheezing Aspirin 81 mg 10/23/24 09:00 10/26/24 08:58 Aspirin 81 Mg Enteric Tablet PO 81 mg DAILY BETTINA Administration Cyanocobalamin 500 mcg 10/23/24 09:00 10/26/24 08:58 Cyanocobalamin 500 Mcg Tablet PO 500 mcg DAILY BETTINA Administration Enoxaparin Sodium 40 mg 10/23/24 09:00 10/26/24 09:04 Enoxaparin 40 Mg/0.4 Ml Syringe SUB-Q Not Given DAILY BETTINA Fluconazole 100 mg 10/24/24 09:00 10/26/24 08:58 Fluconazole 100 Mg Tablet PO 10/29/24 09:01 100 mg QAM BETTINA Administration Fluticasone/Umeclidinium/Vilanterol 1 puff 10/23/24 09:00 10/26/24 08:04 Fluticasone/Umeclidin/Vilanter 100-62.5-25 Mcg Ellipta INHALATION 1 puff DAILY BETTINA Administration Folic Acid 1 mg 10/23/24 09:00 10/26/24 08:59 Folic Acid 1 Mg Tablet PO 1 mg DAILY BETTINA Administration Ceftriaxone Sodium 2 gm/ 100 mls @ 200 mls/hr 10/23/24 15:00 10/26/24 14:03 Sodium Chloride IVPB 200 mls/hr Q24H BETTINA Administration Metronidazole 500 mg 10/23/24 14:15 10/26/24 14:03 Metronidazole 500 Mg Tablet PO 500 mg Q8HR BETTINA Administration Morphine Sulfate 2 mg 10/22/24 21:08 10/23/24 00:23 Morphine Sulfate (*Crx) 2 Mg/Ml Inj IV PUSH 2 mg Q4H PRN Administration Pain Rated 7-10 Naloxone HCl 0.1 mg 10/22/24 21:08 Naloxone Hcl 0.4 Mg/Ml Vial IV PUSH Q2M PRN Opiate Reversal Nicotine 1 patch 10/23/24 00:40 10/26/24 08:59 Nicotine (*Pbkc) 21 Mg Patch TRANSDERM 1 patch DAILY BETTINA Administration Ondansetron HCl 4 mg 10/22/24 21:08 10/23/24 00:23 Ondansetron Inj 4 Mg/2 Ml Vial IV PUSH 4 mg Q6H PRN Administration Nausea And Vomiting Polyethylene Glycol 17 gm 10/25/24 14:45 10/26/24 08:59 Polyethylene Glycol 3350 17 Gm Powd.Pack PO 17 gm QAM BETTINA Administration Senna/Docusate Sodium 1 tab 10/25/24 21:00 10/25/24 20:06 Senna/Docusate Sodium Tablet PO 1 tab HS BETTINA Administration Simethicone 80 mg 10/25/24 13:40 10/26/24 14:03 Simethicone 80 Mg Tab.Chew PO 80 mg QID BETTINA Administration Radiology Results: ITS Impressions Abdomen/Pelvis CT 10/25/24 10:31 IMPRESSION: 1. Mild acute diverticulitis sigmoid colon. 2: Dilated fluid-filled small bowel left midabdomen with air-fluid levels. No definitive transition site identified. Findings suggest either focal adynamic ileus or partial obstruction. Consider correlation with small bowel follow-through study. Labs Labs: Laboratory Results - last 24 hr 10/26/24 06:12 WBC 6.8 RBC 3.88 L Hgb 12.5 Hct 36.9 L MCV 95.1 MCH 32.2 MCHC 33.9 RDW 14.9 H Plt Count 110 L MPV 10.7 H % Immature Plt Fraction 7.3 Sodium 135 L Potassium 3.2 L Chloride 99 Carbon Dioxide 33 H Anion Gap 3 L BUN 8 Creatinine 0.57 L Estim Creat Clear Calc 67 Estimated GFR > 60 Glucose 85 Calcium 9.5 Quality VTE Prophylaxis VTE prophylaxis: pharmacologic ordered (Lovenox 40 mg subQ daily)
[2024-10-26 20:00] VITALS: PULSE 66; RESP 16; O2SAT 96
[2024-10-26] MEDS: ONDANSETRON INJ 4 MG/2 ML VIAL IV PUSH (20:26)
[2024-10-26] MEDS: MORPHINE SULFATE (*CRX) 2 MG/ML INJ IV PUSH (20:26)
[2024-10-26] MEDS: SENNA/DOCUSATE SODIUM TABLET 1 TAB PO (21:48)
[2024-10-26 22:00] VITALS: BP 143/69; PULSE 70; RESP 16; TEMP 36.2; O2SAT 98
[2024-10-27 06:00] VITALS: BP 125/60; PULSE 72; RESP 20; TEMP 36.2; O2SAT 92
[2024-10-27 06:48] LABS: Hematocrit 35.1 % (37.0-47.0); Hemoglobin 11.9 g/dL (12.0-15.0); Immature Platelet Fraction Pct 7.6 % (0.9-11.2); Mean Corpuscular HGB Conc 33.9 g/dl (32-36); Mean Corpuscular Hemoglobin 32.3 pg (26-34); Mean Corpuscular Volume 95.4 fl (80-100); Platelet Count Result 140 k/mm3 (150-375); Red Blood Count 3.68 M/mm3 (4.2-5.4); White Blood Count 9.2 K/mm3 (4.5-10.0)
[2024-10-27 06:57] LABS: Anion Gap 6 mmol/L (4-12); Blood Urea Nitrogen 7 mg/dL (7-17); Calcium 9.1 mg/dL (8.4-10.2); Carbon Dioxide 33 mmol/L (22-30); Chloride 95 mmol/L (98-107); Estimated CRCL calculation 58 ml/min; Estimated Glomerular Filt Rate > 60; Glucose 87 mg/dL (65-110); Potassium 3.3 mmol/L (3.4-5.0); Sodium 134 mmol/L (137-145)
[2024-10-27] MEDS: FLUTICASONE/UMECLIDIN/VILANTER 100-62.5-25 MCG ELLIPTA 1 PUFF INHALATION (07:54)
[2024-10-27 07:55] VITALS: O2SAT 98
[2024-10-27] MEDS: FLUCONAZOLE 100 MG TABLET PO (09:06)
[2024-10-27] MEDS: SIMETHICONE 80 MG TAB.CHEW PO ×2 (09:06→14:49)
[2024-10-27] MEDS: CYANOCOBALAMIN 500 MCG TABLET PO (09:06)
[2024-10-27] MEDS: FOLIC ACID 1 MG TABLET PO (09:07)
[2024-10-27] MEDS: POTASSIUM CHLORIDE 20 MEQ ER TABLET 40 MEQ PO (09:07)
[2024-10-27] MEDS: ASPIRIN 81 MG ENTERIC TABLET PO (09:07)
--- NOTE | 2024-10-27 13:46 | P.PNGS_ITS ---
Progress Note: A&P Assessment and Plan (1) Acute colitis: Code(s): K52.9 - Noninfective gastroenteritis and colitis, unspecified Status: Acute Assessment and Plan: * tolerating regular diet, okay to discharge from surgical standpoint, recommend 5 more days of oral antibiotics * no surgical follow-up necessary as this did not show any evidence of perforation or abscess, recommend following up with PCP (2) Nicotine dependence: Qualifiers: Nicotine product type: cigarettes Substance use status: unspecified nicotine-induced disorder Qualified Code(s): F17.219 - Nicotine dependence, cigarettes, with unspecified nicotine-induced disorders Code(s): F17.200 - Nicotine dependence, unspecified, uncomplicated Status: Chronic Assessment and Plan: * Encourage cessation Subjective Subjective Date/Time Seen: 10/27/24 13:46 Interval history: tolerating diet, occasionally gas cramping pain, no nausea or vomiting, bowels moving Exam GI: Inspection: non-distended GI Palp: Yes Soft to palpation, No Tenderness to palpation present (GI), No Guarding due to palpation present (GI) and No Rebound tenderness present Percussion: Yes normal to percussion Auscultation: normal bowel sounds Objective Data Vital Signs Vital Signs: Vital Signs - 24 hr 10/26/24 14:00 10/26/24 20:00 10/26/24 22:00 Temperature 98.2 F 97.2 F L Pulse Rate 66 66 70 Respiratory Rate 16 16 16 Blood Pressure 145/60 H 143/69 H Pulse Oximetry 96 96 98 Oxygen Delivery Room Air 10/27/24 06:00 10/27/24 07:55 10/27/24 08:45 Temperature 97.2 F L Pulse Rate 72 Respiratory Rate 20 Blood Pressure 125/60 Pulse Oximetry 92 98 Oxygen Delivery Room Air Room Air Intake/Output Intake/Output: Intake & Output 10/24/24 10/25/24 10/26/24 10/27/24 23:59 23:59 23:59 23:59 Intake Total 3544 1300 1800 660 Balance 3544 1300 1800 660 Meds/Results Medications: Active Medications Generic Name Dose Route Start Last Admin Trade Name Freq PRN Reason Stop Dose Admin Acetaminophen 650 mg 10/22/24 21:08 10/25/24 20:06 Acetaminophen 325 Mg Tablet PO 650 mg Q4H PRN Administration Mild Pain (1-3) or Fever Hydrocodone Bitart/Acetaminophen 1 tab 10/22/24 21:08 10/26/24 09:06 Hydrocodone/Acetaminophen (*Crx) 5-325 Mg Tablet PO 1 tab Q4H PRN Administration Moderate Pain (4-6) Albuterol 2 puff 10/22/24 21:14 Albuterol Sulfate (*Sp) Aerosol 1 Puff INHALATION Q6HRT PRN shortness of breath or wheezing Aspirin 81 mg 10/23/24 09:00 10/27/24 09:07 Aspirin 81 Mg Enteric Tablet PO 81 mg DAILY BETTINA Administration Cyanocobalamin 500 mcg 10/23/24 09:00 10/27/24 09:06 Cyanocobalamin 500 Mcg Tablet PO 500 mcg DAILY BETTINA Administration Enoxaparin Sodium 40 mg 10/23/24 09:00 10/27/24 09:07 Enoxaparin 40 Mg/0.4 Ml Syringe SUB-Q Not Given DAILY BETTINA Fluconazole 100 mg 10/24/24 09:00 10/27/24 09:06 Fluconazole 100 Mg Tablet PO 10/29/24 09:01 100 mg QAM BETTINA Administration Fluticasone/Umeclidinium/Vilanterol 1 puff 10/23/24 09:00 10/27/24 07:54 Fluticasone/Umeclidin/Vilanter 100-62.5-25 Mcg Ellipta INHALATION 1 puff DAILY BETTINA Administration Folic Acid 1 mg 10/23/24 09:00 10/27/24 09:07 Folic Acid 1 Mg Tablet PO 1 mg DAILY BETTINA Administration Ceftriaxone Sodium 2 gm/ 100 mls @ 200 mls/hr 10/23/24 15:00 10/27/24 11:56 Sodium Chloride IVPB Infused Q24H BETTINA Infusion Metronidazole 500 mg 10/23/24 14:15 10/27/24 05:58 Metronidazole 500 Mg Tablet PO 500 mg Q8HR BETTINA Administration Morphine Sulfate 2 mg 10/22/24 21:08 10/26/24 20:26 Morphine Sulfate (*Crx) 2 Mg/Ml Inj IV PUSH 2 mg Q4H PRN Administration Pain Rated 7-10 Naloxone HCl 0.1 mg 10/22/24 21:08 Naloxone Hcl 0.4 Mg/Ml Vial IV PUSH Q2M PRN Opiate Reversal Nicotine 1 patch 10/23/24 00:40 10/27/24 09:12 Nicotine (*Pbkc) 21 Mg Patch TRANSDERM Not Given DAILY BETTINA Ondansetron HCl 4 mg 10/22/24 21:08 10/26/24 20:26 Ondansetron Inj 4 Mg/2 Ml Vial IV PUSH 4 mg Q6H PRN Administration Nausea And Vomiting Polyethylene Glycol 17 gm 10/25/24 14:45 10/27/24 09:07 Polyethylene Glycol 3350 17 Gm Powd.Pack PO 17 gm QAM BETTINA Administration Senna/Docusate Sodium 1 tab 10/25/24 21:00 10/26/24 21:48 Senna/Docusate Sodium Tablet PO 1 tab HS BETTINA Administration Simethicone 80 mg 10/25/24 13:40 10/27/24 09:06 Simethicone 80 Mg Tab.Chew PO 80 mg QID BETTINA Administration Radiology Results: ITS Impressions Abdomen/Pelvis CT 10/25/24 10:31 IMPRESSION: 1. Mild acute diverticulitis sigmoid colon. 2: Dilated fluid-filled small bowel left midabdomen with air-fluid levels. No definitive transition site identified. Findings suggest either focal adynamic ileus or partial obstruction. Consider correlation with small bowel follow- through study. Abdomen X-Ray 10/27/24 12:44 IMPRESSION: Nonspecific, nonobstructive bowel gas pattern. Labs Labs: Laboratory Results - last 24 hr 10/27/24 06:02 WBC 9.2 RBC 3.68 L Hgb 11.9 L Hct 35.1 L MCV 95.4 MCH 32.3 MCHC 33.9 RDW 15.1 H Plt Count 140 L MPV 11.1 H % Immature Plt Fraction 7.6 Sodium 134 L Potassium 3.3 L Chloride 95 L Carbon Dioxide 33 H Anion Gap 6 BUN 7 Creatinine 0.67 L Estim Creat Clear Calc 58 Estimated GFR > 60 Glucose 87 Calcium 9.1
--- NOTE | 2024-10-27 14:35 | P.DS_ITS ---
DS: Admitting Diagnosis Discharge Date 10/27/2024 Admitting Diagnosis ileus acute colitis pneumonia lactic acidosis splenic artery aneurysm DS: Discharge Diagnosis Discharge Diagnosis (1) Ileus: Code(s): K56.7 - Ileus, unspecified Status: Acute (2) Acute colitis: Code(s): K52.9 - Noninfective gastroenteritis and colitis, unspecified Status: Acute (3) Pneumonia: Qualifiers: Laterality: unspecified laterality Lung location: unspecified part of lung Pneumonia type: due to unspecified organism Qualified Code(s): J18.9 - Pneumonia, unspecified organism Code(s): J18.9 - Pneumonia, unspecified organism Status: Acute (4) Lactic acidosis: Code(s): E87.20 - Acidosis, unspecified Status: Acute (5) Nicotine dependence: Qualifiers: Nicotine product type: cigarettes Substance use status: unspecified nicotine-induced disorder Qualified Code(s): F17.219 - Nicotine dependence, cigarettes, with unspecified nicotine-induced disorders Code(s): F17.200 - Nicotine dependence, unspecified, uncomplicated Status: Chronic (6) Splenic artery aneurysm: Code(s): I72.8 - Aneurysm of other specified arteries Status: Acute DS: Summary Hospital Course Reason for hospitalization: ileus acute colitis pneumonia lactic acidosis splenic artery aneurysm Hospital Course: 74-year-old female with a past medical history of COPD, hemochromatosis, cirrhosis, former heavy alcohol use, bowel resection, essential hypertension who presented to the ER at [facility] due to abdominal pain, cough and nausea vomiting and was transferred to [facility] for further evaluation and surgical services. Not meeting sepsis criteria. Patient had lactic acidosis which resolved with fluids. CT chest/abdomen/pelvis showed distal transverse colon and sigmoid colon wall thickening as can be seen with infectious, inflammatory, or ischemic colitis. Patient started on IV antibiotics for colitis and surgery consulted. Stool cultures and c diff negative. No surgical intervention required. During admission patient continued to endorse abdominal pain and a repeat CT was obtained and showed no signs of perforation or abscess. There was concern of possible ileus and patient was started on bowel regimen for which she had return of bowel movements and was able to tolerate a normal diet. From surgical perspective patient was ready for discharge. At time of discharge patient was tolerating a normal diet denied any nausea/vomiting. She continued to have slight abdominal pain that she described more as gas discomfort. KUB showed Nonspecific, nonobstructive bowel gas pattern. Per surgery patient was to remain on oral antibiotics for another 5 days with follow-up with her PCP. The chest abdomen pelvis CT also showed dependent left lower lobe tree-in-bud opacities may represent atypical infection or aspiration. Slightly decreased size of the right upper lobe cavitary lesion. For which the above antibiotics also covered. She denied any shortness of breath or cough. The pneumonia likely related to patients perfuse vomiting secondary to colitis prior to admission. Denies any issues or cough related to eating/drinking. CT chest/abdomen/pelvis: 9 mm splenic artery aneurysm. Patient to have follow up with PCP for surveillance. Patient had no complaints at time of discharge denying chest pain, palpitations, shortness of breath, nausea/vomiting. Patient discharged home in a stable condition. She is to follow up with her PCP in 1 week and surgery as needed. Status at Discharge Functional status at discharge: independent ambulation Time Spent with Patient Time attestation: Total time spent providing and/or coordinating discharge services: Time spent: Greater than 30 minutes Exam 2 Narrative: AF HR 72 RR 20 SPO2 98 BP 125/60 General: female in no acute respiratory distress who is nontoxic appearing, sitting on the side of bed and walking in the halls. HEENT: Normocephalic. Atraumatic. Extraocular movement intact. Sclera clear and anicteric.No facial asymmetry. Chest: Lungs are clear to auscultation bilaterally. No wheezes or crackles. CV: Heart was regular rate and rhythm. S1-S2. No murmurs, gallops, or rubs. Abd: Abdomen was soft. Slight tenderness to palpation without guarding. Nondistended. Positive bowel sounds. Ext: No clubbing, cyanosis, or edema. DP pulses bilaterally. Neuro: Patient is alert. Speech is clear. DS: Data Data Completed and Pending Completed studies during hospitalization: abdomen xr abdomen/pelvis ct chest abdomen pelvis ct Labs on day of discharge: Labs from last 24 hours 10/27/24 06:02 WBC 9.2 RBC 3.68 L Hgb 11.9 L Hct 35.1 L MCV 95.4 MCH 32.3 MCHC 33.9 RDW 15.1 H Plt Count 140 L MPV 11.1 H % Immature Plt Fraction 7.6 Sodium 134 L Potassium 3.3 L Chloride 95 L Carbon Dioxide 33 H Anion Gap 6 BUN 7 Creatinine 0.67 L Estim Creat Clear Calc 58 Estimated GFR > 60 Glucose 87 Calcium 9.1 Discharge Plan Discharge Attending physician on discharge: Ginny Hester Consulting providers: Kalyani Bedolla Discharging Clinician: Kalyani Bedolla Anticipated Discharge Date/Time: 10/27/24 14:05 Patient Disposition: Home Activity: as tolerated Diet: as tolerated Discharge Instructions: Discharge disposition: Patient admitted to the hospital for colitis Evaluated by surgery, no surgical intervention required Take medications as prescribed Augmentin and Flagyl, course to be completed on 11/01 Able to take gasx (simethicone) over the counter for gas pains Attached is information on this medication Eat well balanced meals and do not over hydrate Keep active Keep an eye on your stool, should your stool be black or dark purple, you should come back to the hospital During admission patient was noted to have pneumonia Continue the antibiotics as above During admission patient noted to have a 9mm splenic artery aneurysm No acute intervention required at this time Continue to monitor annually Discuss with your PCP Monitor blood pressures Take caution while standing, rising, or moving Change positions slowly taking a break between each position change If you standing feel dizzy sit back down and take a break Encouraged to continue with yearly vaccinations Return to the emergency department if he developed sudden shortness of breath, chest pain, nausea, vomiting, upset stomach or intractable diarrhea Return to the emergency department if you develop fever greater than 101.5 Follow-up with the primary care physician within 1-2 weeks Thank you for choosing [facility] for your healthcare needs Patient Instructions: Antibiotic Form, Metronidazole (By mouth), Amoxicillin/Clavulanate Potassium (By mouth), Fluconazole (By mouth), Pneumonia (DC), Colitis (ED) Patient Language: Kazakh Stand Alone Forms: General Discharge Information, Work/School Release IP Follow-up/Referrals: Jarod Hernandez MD [Primary Care Provider] - 1 Week Aldo Ramos DO [Physician] - Call for Appointment Discharge Medications: New fluconazole [Diflucan] 100 mg Tablet 100 mg PO QAM Qty: 2 0RF metronidazole 500 mg Tablet 500 mg PO Q8HR Qty: 15 0RF amoxicillin-pot clavulanate 875-125 mg tablet 1 tablet PO Q12H Qty: 10 0RF Continued folic acid 1 mg tablet 1 mg PO DAILY mecobalamin (vitamin B12) 500 mcg tablet,chewable 500 mcg PO DAILY albuterol sulfate 90 mcg/actuation HFA aerosol inhaler 1 - 2 inh inhalation Q4-6H PRN (Reason: shortness of breath or wheezing) Qty: 8.5 2RF Patient Comments: . aspirin 81 mg tablet,delayed release (DR/EC) 81 mg PO DAILY multivitamin [Daily Multi-Vitamin] Tablet 1 tablet PO DAILY Trelegy Ellipta 100-62.5-25 mcg blister with device 1 inh INHALATION DAILY Qty: 60 11RF Rx Instructions: rinse and spit Date of admission: 10/24/24 14:41 Primary Care Provider: Jarod Hernandez Admitting Provider: Ariana Quinonez Attending physician on admission: Ariana Quinonez Condition: Stable Hospitalist MIPS Heart Failure (Exclusion) Patient has history of Heart Transplant or Left Ventricular Assistive Device?: No IF YES, STOP HERE Heart Failure (Qualifier) Patient has current or prior documentation of LVEF less than or equal to 40%, or mod/servere depressed LVSF?: No IF NO, STOP HERE
[2024-10-27] MEDS: cefTRIAXone 2 GM in SODIUM CHLORIDE 0.9% IV 100 ML 200 ML IVPB (14:49)
== END 2024-10-27 15:45 | disposition home or self-care (01) | DRG 391 ==
PROVIDERS: Nurse Practitioner; Student in an Organized Health Care Education/Training Program; Admitting Provider Internal Medicine; PCP Family Medicine; Visit Provider Internal Medicine
DX: K52.9 Noninfective gastroenteritis and colitis, unspecified (principal); J18.9 Pneumonia, unspecified organism; K56.7 Ileus, unspecified; E87.20 Acidosis, unspecified; B37.0 Candidal stomatitis; J44.0 Chronic obstructive pulmonary disease with (acute) lower respiratory infection; E83.119 Hemochromatosis, unspecified; F10.90 Alcohol use, unspecified, uncomplicated; F17.210 Nicotine dependence, cigarettes, uncomplicated; I10 Essential (primary) hypertension; I72.8 Aneurysm of other specified arteries; K74.60 Unspecified cirrhosis of liver; Z86.718 Personal history of other venous thrombosis and embolism; Z90.49 Acquired absence of other specified parts of digestive tract; Z79.82 Long term (current) use of aspirin
CPT/HCPCS: 36415; 74018; 74176; 80048; 83605; 85025; 85027; 85055; 86140; 87493; 94640; 96361; 96365; 96367; 96372; 96375; A9270; G0378; J0696; J1450; J1650; J2270; J2405; J7030; J7040

== ENCOUNTER 2024-11-01 09:19 | Inpatient (IN) | payer OTHER, MEDICARE, SELFPAY ==
[2024-11-01] VITALS (10 sets, daily range): BP systolic 113–158; BP diastolic 66–79; PULSE 78–122; RESP 16–30; TEMP 36–36.8; O2SAT 93–100; BMI 23.7
--- NOTE | ~2024-11-01 | XR_ITS ---
EXAMINATION: XR abdomen obstructive series DATE: 11/03/2024 13:42 INDICATION: Abdominal distention and pain TECHNIQUE: Frontal supine and upright views of the abdomen were obtained. COMPARISON: CT dated 11/01/2024 FINDINGS: Multiple persistent mildly dilated gas-filled loops of small bowel in the abdomen and pelvis consiste nt with ongoing small bowel obstruction versus ileus. No free intraperitoneal gas. Mild increased int erstitial pattern in the lower lungs with associated peripheral Darío B lines consistent with mild p ulmonary edema. Arch size is normal. Mild lumbar levocurvature with moderate spondylosis. IMPRESSION: 1. Persistent mildly dilated gas-filled loops of small bowel throughout the abdomen and pelvis which could represent small bowel obstruction or ileus. 2. Mild pulmonary edema in the lower lungs. Reviewed, dictated and finalized at location A. IMPRESSION: 1. Persistent mildly dilated gas-filled loops of small bowel throughout the ab domen and pelvis which could represent small bowel obstruction or ileus. 2. Mild pulmonary edema in the lower lungs.
--- NOTE | ~2024-11-01 | XR_ITS ---
XR chest 2V 11/01/2024 10:17 Indication: Recent pneumonia. Procedure: 2 view chest Comparison: CT dated 10/22/2024 chest x-ray dated 05/02/2024 Findings: Progression of spiculated mass right upper lobe compared with 05/02/2024, suspicious for mal ignancy. There are associated coarse calcifications seen on chest x-ray and synthetic recent CT exami nation. No focal pneumonia, edema or effusion. Impression: 1: Progression of spiculated right upper lobe mass with associated calcifications. Cannot exclude mal ignancy. Recommend further evaluation with CT-guided biopsy or pet/CT scan. Reviewed, dictated and finalized at location B. Impression: 1: Progression of spiculated right upper lobe mass with associated calcificatio ns. Cannot exclude malignancy. Recommend further evaluation with CT-guided biop sy or pet/CT scan.
--- NOTE | ~2024-11-01 | CT_ITS ---
EXAMINATION: CT diagnostic chest wo con DATE: 11/01/2024 10:35 INDICATION: tachycardia, shortness of breath TECHNIQUE: Computed tomography (CT) of the chest was performed without intravenous contrast. Addition al 3D reconstructions utilizing coronal maximum intensity projection (MIP) were performed. Automated exposure control and iterative reconstruction technique were employed. The dose-length product was 12 8.32 mGy-cm. COMPARISON: 10/22/2024, 02/11/2023 and 05/20/2022 FINDINGS: Mild to moderate emphysema with right apical pleural-parenchymal scarring. There are peripheral calci fications associated with an approximately 4.6 x 3.5 cm centrally cavitary lesion at the right apex w hich is decreased in in both size and in the degree of wall thickening when compared with study from 02/11/2023. The patient had rapidly developed since earlier study dated 05/20/2022. Both the rapid dev elopment and continued decrease in size favor a benign etiology likely sequela of prior infection. No interval change in a mild tree-in-bud pattern with small centrilobular nodules in the dependent left lower lobe consistent with bronchiolitis with endobronchial spread of disease. No new airspace opaci ties, pulmonary edema or pleural effusion. Heart size is normal. Evidence chronic coronary artery debra cific lesion. Thoracic aorta is normal in caliber. Calcified nodule left lower lobe along with calcif ied left hilar and mediastinal lymph nodes which along with a few small hepatic calcifications and mu ltiple splenic calcifications are all consistent with old granulomatous disease. No pathologically en larged thoracic lymphadenopathy. Mild thoracic spondylosis. IMPRESSION: 1. Mild to moderate emphysema with persistent tree-in-bud opacities in the dependent left lower lobe consistent with bronchiolitis. 2. No recent interval change in a 4.6 x 3.5 similar thick-walled centrally cavitary lesion at the rig ht apex which is decreased in size and degree of wall thickening since 2022, likely scarring as seque la of chronic infection. Reviewed, dictated and finalized at location A. IMPRESSION: 1. Mild to moderate emphysema with persistent tree-in-bud opacities in the depe ndent left lower lobe consistent with bronchiolitis. 2. No recent interval change in a 4.6 x 3.5 similar thick-walled centrally cavi tary lesion at the right apex which is decreased in size and degree of wall thi ckening since 2022, likely scarring as sequela of chronic infection.
--- NOTE | ~2024-11-01 | XR_ITS ---
EXAMINATION: XR_ENEMAB_CR DATE: 11/08/2024 11:46 INDICATION: Assess for sigmoid obstruction. Incomplete colonoscopy. 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 A catheter was inserted into the patient's rectum. Contra st was infused by gravity. Gas was infused by hand pump. Fluoroscopic spot images and conventional ra diographs were obtained. Fluoroscopy exposure time was 1.1 minutes. A total of 20 fluoroscopic images and one overhead radiograph were obtained. Total DAP was 42.49 Gycm^2. COMPARISON: None. FINDINGS: There is a high-grade stricture in the distal sigmoid colon. Study was terminated prior to contrast e xtending beyond the site of stricture due to patient discomfort and recurrent expulsion of the enema catheter bulb due to back pressure resulting from the obstruction. A couple diverticula are seen in t he distalmost sigmoid colon proximal to the stricture. IMPRESSION: 1. Contrast unable to be passage beyond a high-grade stricture in the distal sigmoid colon which coul d be due to inflammation or scarring related to reported recent colitis/diverticulitis but which also raises significant concern for malignancy. Could consider repeat single contrast water-soluble enema following sufficient time to allow for resolution of any potential contributing inflammation. Reviewed, dictated and finalized at location A. IMPRESSION: 1. Contrast unable to be passage beyond a high-grade stricture in the distal si gmoid colon which could be due to inflammation or scarring related to reported recent colitis/diverticulitis but which also raises significant concern for mal ignancy. Could consider repeat single contrast water-soluble enema following woodard fficient time to allow for resolution of any potential contributing inflammatio n.
--- NOTE | ~2024-11-01 | XR_ITS ---
XR abdomen/kub 1V 11/07/2024 13:15 Indication: Sigmoid obstruction Procedure: KUB Comparison: 11/03/2024 Findings: There is been decompression of the small bowel since prior examination. There is gas throug hout the colon is well into the rectum. Lung bases unremarkable. Cardiomegaly. Severe lumbar spondylo sis with scoliosis. Impression: 1: Improved small bowel dilation compared with 11/03/2024, likely resolving ileus or partial obstruct ion. Reviewed, dictated and finalized at location A. Impression: 1: Improved small bowel dilation compared with 11/03/2024, likely resolving ile us or partial obstruction.
--- NOTE | ~2024-11-01 | XR_ITS ---
CORRECTED REPORT corrected exam description to abdomen gastric tube insert [facility] [place] 11/07/24 This report was recreated on 11/07/2024. Original report was EXAM: XR abdomen gastric tube insert DATE: 11/03/2024 18:49 HISTORY: NGT placement . COMPARISON: X-ray obstruction series, same date. FINDINGS: Minimal peripheral reticulation in the lung bases. Minimal bibasilar scar/atelectasis. NG tube, tip terminating over the stomach, side port at the GE junction. Multiple loops of dilated small bowel in the upper abdomen. IMPRESSION: Shallow positioned NG tube, consider advancing 4 cm. Reviewed, dictated and finalized at location K.
--- NOTE | ~2024-11-01 | XR_ITS ---
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 A catheter was inserted into the patient's rectum. Water- soluble contrast was infused by gravity. Fluoroscopic spot images and conventional radiographs were o btained. The procedure was terminated at patient request due to discomfort with contrast only having extending into the mid sigmoid colon. Fluoroscopy exposure time was 1.5 minutes. COMPARISON: CT dated 11/01/2024 and prior barium enema dated 11/08/2024 FINDINGS: Contrast extends beyond persistent but less severe stricture in the distal sigmoid colon in the regio n of the suspected diverticulitis. Stool is seen throughout the proximal and distal descending colon. No evident extraluminal contrast extravasation or fistula ischemic lesions identified. IMPRESSION: 1. Limited single contrast enema terminated with only partial opacification of the sigmoid colon at p atient request due to discomfort. 2. Interval improvement in a stricture in the distal sigmoid colon likely related to diverticulitis. Reviewed, dictated and finalized at location A. IMPRESSION: 1. Limited single contrast enema terminated with only partial opacification of the sigmoid colon at patient request due to discomfort. 2. Interval improvement in a stricture in the distal sigmoid colon likely relat ed to diverticulitis.
--- NOTE | ~2024-11-01 | CT_ITS ---
CLINICAL INDICATION: Abdominal pain COMPARISON: 10/25/2024 (1 week earlier) TECHNIQUE: Multiple contiguous axial images of the abdomen and pelvis were performed without the admi nistration of intravenous contrast The dose-length product (DLP) was 291.27 mGy-cm. Automated exposure control and iterative reconstruction technique were employed. FINDINGS/OBSERVATIONS: Visualized lower thorax: Redemonstration of a pleural-based right middle lobe nodule, decreased in size measuring 6.8 mm on th e previous examination, now measuring 5.5 mm. Redemonstration of multiple 2 and 3 mm nodules within the left lung base, the largest measuring 3.7 m m (axial series, image 4). The remainder of the bilateral lung bases are clear. The heart is within the upper limits of normal for size, without pericardial effusion. Small hiatal hernia is present. Liver: The liver demonstrates homogeneous attenuation and is not enlarged . Gallbladder and biliary system: The gallbladder is distended, and otherwise unremarkable. Pancreas: Limited evaluation of the pancreas secondary to the lack of intravenous contrast. Spleen: Punctate calcifications identified within the splenic parenchyma, suggesting prior granulomat ous disease. The remainder of the spleen demonstrates otherwise homogeneous attenuation and is not enlarged. Kidneys: The bilateral kidneys are unremarkable, without hydronephrosis or renal calculi. Adrenal glands: Unremarkable. Gastrointestinal tract: Multiple loops of distended fluid-filled featureless small bowel within the anterior abdomen and pelv is. Air-fluid levels are also noted, extending into the colon. Trace mural thickening within the ascending and proximal transverse colon which resolves the splenic flexure. Mural thickening then recurs in the rectosigmoid colon, and extends retrograde to the pelvic brim. No fat plane is detected between the uterus and the thickened loop of distal sigmoid colon, largely u nchanged from 10/25/2024. No significant free fluid within the abdomen or pelvis. Findings suggesting prior cecectomy with an enteric staple line in the right mid to lower quadrant. Appendix: Surgically absent. Vasculature: Densely calcified atherosclerotic disease without aneurysmal dilatation. Lymph nodes: No pathologically enlarged or morphologically suspicious lymph nodes within the retroperitoneum or at the root of the mesentery. Pelvic structures: The bladder is only minimally distended, and otherwise unremarkable. The uterus is anteverted and anteflexed. No fat plane is detected between the posterior body of the uterus and the thickened loop of distal si gmoid colon in the left hemipelvis, largely unchanged from 10/25/2024. No air is identified within the uterus. Body wall and musculoskeletal: Small fat-containing umbilical hernia. Age advanced degenerative disease within the lower thoracic/lumbosacral spines. IMPRESSION: Multiple loops of dilated, fluid-filled, featureless small bowel with segments of mural thickening wi thin portions of the the colon (which demonstrate diverticulosis). This constellation of findings suggest a possible ileus, rather than a discrete bowel obstruction. No fat plane between the uterus and the thickened loop of distal sigmoid colon with presacral indurat ion in the left hemipelvis. Reviewed, dictated and finalized at location A. IMPRESSION: Multiple loops of dilated, fluid-filled, featureless small bowel with segments of mural thickening within portions of the the colon (which demonstrate diverti culosis). This constellation of findings suggest a possible ileus, rather than a discrete bowel obstruction. No fat plane between the uterus and the thickened loop of distal sigmoid colon with presacral induration in the left hemipelvis.
--- OUTSIDE RECORDS SUMMARY | 2024-11-01 09:36 | XMS_ITS | Referral Summary ---
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
--- OUTSIDE RECORDS SUMMARY | 2024-11-01 09:36 | XMS_ITS | Clinical Summary ---
Author Organization [facility] [employer] Address [address] [place] [address] Care Team Providers Care Chiropractor Sole Practitioner Name Role Phone Jarod Hernandez MD Primary Care Provider [phone] Source Comments [facility] [employer],non-owned Affiliates and Associated Physician Practices is amultiple site organization consisting of ambulatory clinics and hospital sitesin [place], [place], [place] and [place]. This disclosure is being madepursuant to the Care Everywhere program and may not contain all information available regarding this patient. Last updated 17.[facility] [employer] Allergies Active Allergy Reactions Criticality Noted Date [...] on file Legal Sex Female 5:53 PM MANUFACTURING INSPECTOR Gender Identity Not on file Sexual Orientation Not on file Last Filed Vital Signs Vital Sign Reading Time Taken Comments Blood Pressure 103/76 05/31/2023 10:50 AM MANUFACTURING INSPECTOR Pulse 109 05/31/2023 10:50 AM MANUFACTURING INSPECTOR Temperature 36.7 C (98.1 F) 05/31/2023 10:50 AM MANUFACTURING INSPECTOR Respiratory Rate 14 11/18/2015 10:51 AM CDT Oxygen Saturation 89% 05/31/2023 10:50 AM MANUFACTURING INSPECTOR Inhaled Oxygen Concentration - - Weight 58.1 kg (128 lb) 05/31/2023 10:50 AM MANUFACTURING INSPECTOR Height 165.1 cm (5' 5) 05/31/2023 10:50 AM MANUFACTURING INSPECTOR Body Mass Index 21.3 05/31/2023 10:50 AM MANUFACTURING INSPECTOR Plan of Treatment Health Maintenance Due Date [...] Payer (Ef fective 2009-Present) Name:Jen Harrell Member ID:[id number] Relation to Subscriber:Self Name:Jen Harrell Subscriber ID:[id number] Payer ID:Not on file Type:HMO Address: [address] [employer] Member Subscriber Plan / Payer (Ef fective for All Dates) Name:Jen Harrell Member ID:[id number] Relation to Subscriber:Self Name:Jen Harrell Subscriber ID:[id number] Payer ID:Not on file Type:O Address: [address] SELF PAY NO INSURANCE Member Subscriber Plan / Payer (Ef fective for All Dates) Name:Jen Harrell Member ID:Not on file Relation to Subscriber:Not on file Name:JEN HARRELL Subscriber ID:Not on file Address: [address] [place] [address] Payer ID:Not on file Group ID:Not on file Type:Self Pay Address: [place], [place] Care Teams Chiropractor Sole Practitioner Relationship Specialty Start Date End Date Jarod Hernandez MD [address] [place] [address] PCP - General 07/25/15
--- OUTSIDE RECORDS SUMMARY | 2024-11-01 09:36 | XMS_ITS | Clinical Summary ---
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
--- OUTSIDE RECORDS SUMMARY | 2024-11-01 09:37 | XMS_ITS | Patient Health Record ---
Author Organization [facility] Address [address] [place], [place] [id number] Support Name Relationship Address Phone SHARONJEFFRY Emergency Contact Unknown JEN HARRELL Guarantor Unknown [phone] Reason For Referral No Information Plan Of Treatment No Information Insurance Providers Payer Name Payer Address Payer Phone Subscriber Number Group Number Insured Name Patient Relationship to Insured Coverage Start Date Coverage End Date [facility] [address] [place], [place] [id number] JEN HARRELL Self - patient is the insured
--- OUTSIDE RECORDS SUMMARY | 2024-11-01 09:37 | XMS_ITS | Clinical Summary ---
Author Organization [facility] Address [address] [place] [address] Care Team Providers Care Clipper Operator Name Role Phone Jarod Hernandez MD Primary Care Provider [phone] Allergies Active Allergy Reactions Criticality Noted Date [...] STL ABSTRACTION Provider, Abstract 10/15/2024 Orders Only [facility] Oncology and Hematology - [address] [place] [address] Zaki Leon MD Hereditary hemochromatosis 09/27/2024 Orders Only [facility] Oncology and Hematology - Kin [address] [place] [address] Zaki Leon MD 09/25/2024 External Device Data STL ABSTRACTION Provider, Abstract 09/24/2024 Orders Only [facility] Oncology and Hematology - Kin [address] [place] [address] Zaki Leon MD Hereditary hemochromatosis 09/18/2024 External Device Data STL ABSTRACTION Provider, Abstract 09/07/2024 Orders Only [facility] Oncology and Hematology - [address] [place] [phone] Zaki Leon MD 09/03/2024 Orders Only [facility] Oncology and Hematology - Kin [address] [place] [phone] Zaki Leon MD Hereditary hemochromatosis 08/29/2024 2:15 PM CDT Office Visit [facility] Oncology and Hematology - Kin [address] [place] [address] Zaki Leon MD Hereditary hemochromatosis (Primary Dx); Acute deep vein thrombosis (DVT) of distal vein of left lower extremity (CMS/HCC) 08/28/2024 External Device Data STL ABSTRACTION Provider, Abstract 08/28/2024 Orders Only [facility] Oncology and Hematology - Kin [address] [place] [address] Zaki Leon MD 08/23/2024 External Device Data STL ABSTRACTION Provider, Abstract 08/22/2024 External Device Data STL ABSTRACTION Provider, Abstract 08/22/2024 External Device Data STL ABSTRACTION Provider, Abstract 08/21/2024 External Device Data STL ABSTRACTION Provider, Abstract 08/13/2024 Orders Only [facility] Oncology and Hematology - Kin [address] [place] [phone] Zaki Leon MD Hereditary hemochromatosis 08/01/2024 Orders Only [facility] Oncology and Hematology - Kin [address] [place] [address] Zaki Leon MD from Last 3 Months [...] Date Smoking Tobacco: Every Day Cigarettes 1 41 Started: 11/15/1983 Smokeless Tobacco: Never Tobacco Cessation:Ready [...] Care Team (Late st Contact Info) Description 11/05/2024 Orders Only [facility] Oncology and Hematology - Kin [address] [place] [address] Zaki Leon MD [address] [place] [phone] Hereditary hemochromatosis 12/31/2024 3:45 PM CDT Office Visit [facility] Oncology and Hematology - [address] [place] [address] Zaki Leon MD [facility] [address] [place] [phone] Health Maintenance Due Date Last Done [...] CDT HOMOCYSTEINE Routine 08/22/2024 8:37 AM CDT from Last 3 Months Results [...] Leon MD CHEMISTRY ORDERABLES Final Resu lt from Last 3 Months Insurance [employer] [id number] [employer] Care Teams Clipper Operator Relationship Specialty Start Date End Date Jarod Hernandez MD [address] [place] [address] PCP - General Family Practice 01/18/19
--- OUTSIDE RECORDS SUMMARY | 2024-11-01 09:37 | XMS_ITS | Clinical Summary ---
Author Organization [facility] Address [address] [place] [address] Care Team Providers Care Relations Mgr Name Role Phone Jarod Hernandez MD Primary Care Provider [phone] Raymon Conway MD Unavailable [phone] Mari Guajardo PA-C Unavailable [phone] Allergies Active Allergy Reactions Criticality Noted [...] Date Diagnosed Date Atrial fibrillation with RVR ([facility]) 0 06/03/2023 Pneumonia 06/02/2023 Encounters Date Type Department Care Team Description 08/14/2024 Orders Only [facility] [address] [place] [address] Raymon Conway MD from Last 3 Months [...] materials from doctor or pharmacy Never 07/19/2023 [facility] Utilities Answer Date Recorded In the past 12 months has th e [place] [employer], gas, oil, or water [employer] threatened to shut off services in your [...] Noemi Machado, RN Insurance MEDICARE PART A [employer] OPEN ACCESS [facility] Advance Directives * Full Code (Latest Code Status on File) Date Activated Date Inactivated Comments 07/07/2023 7:48 AM * Full Code Date Activated Date Inactivated Comments 06/07/2023 7:45 AM 06/23/2023 7:20 PM Care Teams Relations Mgr Relationship Specialty Start Date End Date Jarod Hernandez MD [address] [place] [address] PCP - General FAMILY PRACTICE 06/03/23 Raymon Conway MD [address] [place] [address] Consulting Physician CLINICAL CARDIAC ELECTROPHYSIOLOGY 08/09/23 Mari Guajardo PA-C [address] [place] [address] Referring Physician PHYSICIAN RAILROAD INSPECTOR 02/13/24
--- OUTSIDE RECORDS SUMMARY | 2024-11-01 09:37 | XMS_ITS | Encounter Summary ---
Author Organization [facility] Address [facility] [place] [address] Care Team Providers Care Contract Paralegal Name Role Phone Jarod Hernandez MD Primary Care Provider [phone] Raymon Conway MD Unavailable [phone] Mari Guajardo PA-C Unavailable [phone] Encounter Details Date Type Department Care Team (Late st Contact Info) Description 06/27/2023 Hospital Follow-up Call [facility] Cardiovascular Care Unit [address] [place] [address] Cassandra Medina, RN Social History [...] the past 12 months has th e [employer], gas, oil, or water company threatened to [...] Assessment Author Status No 06/02/2023 9:30 PM EGG GRADER Anita Chang, R N Active * Are you blind or do you have serious difficulty seeing, even when wearing glasses? Answer Date of Assessment Author Status No 06/02/2023 9:30 PM EGG GRADER Anita Chang, R N Active * Do you have serious difficulty walking or climbing stairs? Answer Date of Assessment Author Status Yes 06/02/2023 9:30 PM EGG GRADER Anita Chang, R N Active * Do you have difficulty dressing or bathing? Answer Date of Assessment Author Status Yes 06/02/2023 9:30 PM EGG GRADER Anita Chang, R N Active * Because of a physical, mental, or emotional condition, do you have difficulty doing errands alone such as visiting a doctor's office or shopping? Answer Date of Assessment Author Status Yes 06/02/2023 9:30 PM EGG GRADER Anita Chang, R N Active documented as of this encounter Mental Status * Because of a physical, mental, or emotional condition, do you have serious difficulty concentrating, remembering, or making decisions? Answer Entry Date Author Status No 06/02/2023 9:30 PM EGG GRADER Anita Chang, R N Active documented in [...] on filedocumented in this encounter Care Teams Contract Paralegal Relationship Specialty Start Date End Date Jarod Hernandez MD [address] [place] [address] PCP - General FAMILY PRACTICE 06/03/23 Raymon Conway MD [address] [place] [address] Consulting Physician CLINICAL CARDIAC ELECTROPHYSIOLOGY 08/09/23 Mari Guajardo PA-C [address] [place] [address] Referring Physician PHYSICIAN TOOL AND DIE MANAGER 02/13/24 documented as of this encounter
--- NOTE | 2024-11-01 09:46 | ED_ITS ---
HPI - Abdominal Pain General Chief Complaint: Abdominal Pain <Mel Villafuerte APRN - Last Filed: 11/01/24 13:42> Stated Complaint: ABD PAIN <Mel Villafuerte APRN - Last Filed: 11/01/24 13:42> Time Seen by Provider: 11/01/24 09:22 <Mel Villafuerte APRN - Last Filed: 11/01/24 13:42> History of Present Illness HPI narrative: Patient is a 66-year-old who presents to the ER with complaints of abdominal pain. She endorses soft bowel movements that are not watery, and nausea. She reports she was recently hospitalized and discharged from the hospital on Tuesday, 4 days ago. Patient reports she was admitted for colitis, bowel obstruction, pneumonia, and a urinary tract infection. She reports she was hospitalized at this hospital. Patient reports her bowel pain had subsided at the time of discharge but has now returned. She reports her pain starts at the top of her belly and goes down to the bottom of her belly. Patient endorses a history an appendectomy, and COPD. She denies any fevers, urinary symptoms, or new onset back pain. <Mel Villafuerte APRN - Last Filed: 11/01/24 13:42> Related Data Home Medications: Home Medications ?Medication ?Instructions ?Recorded ?Confirmed ?Last Taken ?Type aspirin 81 mg tablet,delayed 81 mg PO DAILY 05/16/24 11/01/24 Unknown History release folic acid 1 mg tablet 1 mg PO DAILY 06/14/24 11/01/24 Unknown History mecobalamin (vitamin B12) 500 mcg 500 mcg PO DAILY 06/14/24 11/01/24 Unknown History chewable tablet multivitamin (Daily Multi-Vitamin 1 tablet PO DAILY 10/22/24 11/01/24 Unknown History tablet) <Mel Villafuerte APRN - Last Filed: 11/01/24 13:42> Allergies/Adverse Reactions: Allergies Allergy/AdvReac Type Severity Reaction Status Date / Time mercury (elemental) Allergy Unknown Verified 11/01/24 18:00 Iodine and Iodide Containing AdvReac Rash Verified 11/01/24 18:00 Produc <Mel Villafuerte APRN - Last Filed: 11/01/24 13:42> Review of Systems 2 Review of Systems: All systems reviewed & are unremarkable except as noted in HPI and below <Mel Villafuerte APRN - Last Filed: 11/01/24 13:42> [facility] Past Medical History Medical History: Medical History DVT (deep venous thrombosis) 2023 Hemochromatosis Alcohol use Patient reports that she quit drinking alcohol in 2022 Cirrhosis Family history of colon cancer in father Gastritis and duodenitis Elevated ferritin Fatty liver History of bruising easily Family hx of colon cancer Hypertension COPD (chronic obstructive pulmonary disease) <Mel Villafuerte APRN - Last Filed: 11/01/24 13:42> Surgical History Surgical History: Surgical History History of tooth extraction H/O colonoscopy with polypectomy H/O tubal ligation S/P tonsillectomy History of colon surgery cecum History of appendectomy <Mel Villafuerte APRN - Last Filed: 11/01/24 13:42> Family History Family History: Family History Father Colon cancer Mother Heart failure <Mel Villafuerte APRN - Last Filed: 11/01/24 13:42> Social History Social History: Social History Social History: 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 She lives with a roommate. She is and has 4 children. She has smoked 1- 1.5 packs of cigarettes per day since she was a teenager. She used to drink 4-5 alcoholic beverages a day but quit drinking approximately 2022. code status full code Smoking packs per day: 1 Smoking cigarettes per day: 20.0 Years smoked: 60 Smoking pack-years: 60.00 Smoking status: Current every day smoker Tobacco type: cigarettes Second hand tobacco smoke exposure: No Alcohol intake: former Drinks per week: 0 Alcohol use details: 5 shots per day Substance use: never Substance use type: does not use Do You Feel Safe in your Home?: Yes Lack of Transportation: No Lack of Food: Never True Current Housing: I Have Housing Concerned About Future Housing: No Difficulty Paying Gas/Electric Bills: No Difficulty Paying for Meds: No Currently Unemployed: No Education: Decline to Answer Difficulty w/ Childcare or Family Care: No Living arrangements: alone Occupation/Education: occupation 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 HEAD: Normocephalic, atraumatic. NECK: Supple. No adenopathy, no masses. RESPIRATORY: Airway patent, respirations nonlabored. Clear to auscultation bilaterally, no rales, rhonchi, wheezing. CARDIOVASCULAR: Tachycardia without murmurs, rubs, or gallops. Peripheral pulses 2+ and equal bilaterally. ABDOMINAL: + tender in all four quadrants, distended, no hepatosplenomegaly. Normoactive BS. MUSCULOSKELETAL: Moves all extremities. Strength/ROM intact without gross deformities. SKIN: Warm, dry, normal color. No rashes. NEURO: A&O X3. Speech clear. Cranial nerves II-XII intact. No ataxic movements. PSYCHIATRIC: Appropriate mood and affect. Normal interaction. <Mel Villafuerte, CLOTH PRINTER - Last Filed: 11/01/24 13:42> Course [facility]/PA Physician Supervision This visit was performed by both a physician and an APC. I performed all aspects of the MDM as documented. <Prosper Alvarado MD - Last Filed: 11/01/24 18:14> Vital Signs Vital signs: Vital Signs Temperature 97.2 F L 11/01/24 09:26 Pulse Rate 122 H 11/01/24 09:26 Respiratory Rate 26 H 11/01/24 09:26 Blood Pressure 113/79 11/01/24 09:26 Pulse Oximetry 100 11/01/24 09:26 Temperature 97.2 F L 11/01/24 09:26 Pulse Rate 87 11/01/24 12:50 Respiratory Rate 16 11/01/24 12:50 Blood Pressure 117/72 11/01/24 12:50 Pulse Oximetry 93 11/01/24 12:50 <Mel Villafuerte APRN - Last Filed: 11/01/24 13:42> Vital Signs Temperature 97.2 F L 11/01/24 09:26 Pulse Rate 122 H 11/01/24 09:26 Respiratory Rate 26 H 11/01/24 09:26 Blood Pressure 113/79 11/01/24 09:26 Pulse Oximetry 100 11/01/24 09:26 Temperature 97.2 F L 11/01/24 09:26 Pulse Rate 87 11/01/24 12:50 Respiratory Rate 16 11/01/24 12:50 Blood Pressure 117/72 11/01/24 12:50 Pulse Oximetry 93 11/01/24 12:50 <Prosper Alvarado MD - Last Filed: 11/01/24 18:14> MDM - Abdominal Pain MDM Narrative Medical decision making narrative: Patient is a 66-year-old who presents to the ER with complaints of abdominal pain. She endorses soft bowel movements that are not watery, and nausea. She reports she was recently hospitalized and discharged from the hospital on Tuesday, 4 days ago. Patient reports she was admitted for colitis, bowel obstruction, pneumonia, and a urinary tract infection. She reports she was hospitalized at this hospital. Patient reports her bowel pain had subsided at the time of discharge but has now returned. She reports her pain starts at the top of her belly and goes down to the bottom of her belly. Patient endorses a history an appendectomy, and COPD. She denies any fevers, urinary symptoms, or new onset back pain. Labs Ordered: CBC, CMP, coags, lipase, CRP, urinalysis Imaging Ordered: CT chest abdomen pelvis Medications Ordered: 1 L normal saline IV bolus, Zosyn IV, Zofran IV, morphine IV, Pepcid IV Results: Patient's CT scan indicates Mild to moderate emphysema with persistent tree-in-bud opacities in the dependent left lower lobe consistent with bronchiolitis. 2. No recent interval change in a 4.6 x 3.5 similar thick-walled centrally cavitary lesion at the right apex which is decreased in size and degree of wall thickening since 2022, likely scarring as sequela of chronic infection. Multiple loops of dilated, fluid-filled, featureless small bowel with segments of mural thickening within portions of the the colon (which demonstrate diverticulosis). This constellation of findings suggest a possible ileus, rather than a discrete bowel obstruction. No fat plane between the uterus and the thickened loop of distal sigmoid colon with presacral induration in the left hemipelvis. Patient's CBC indicates a white blood cell count of 12.2, hemoglobin of 15.3, platelet count of 485. His coags indicates a PT of 14.9 seconds. Patient's chemistry has a sodium of 134, chloride of 95, creatinine of 1.25, estimated GFR 42, glucose of 113, calcium of 10.4, AST of 48. Her troponin was negative. Patient's CRP was 1.7, her total protein was 8.5. Her urinalysis indicated a mild UTI. Diagnosis: Colitis, acute kidney injury Consults: 1330- general surgery, Dr. Barajas, who was in agreement with plan for consultation. 1230- GI, Dr. Mosqueda, who was in agreement with plan for consulting on patient once she is admitted to the hospital. Results of imaging and lab work shared with patient and their family. It was advised patient be admitted to the hospital for further evaluation and treatment. Patient verbalized understanding and are in agreement with plan. <Mel Villafuerte APRN - Last Filed: 11/01/24 13:42> Differential Diagnosis Differential diagnosis: Likely abdominal pain, diverticulitis, gastroenteritis and small bowel obstruction <Mel Villafuerte APRN - Last Filed: 11/01/24 13:42> Lab Data Attestation: I reviewed the patient's lab results. <Mel Villafuerte APRN - Last Filed: 11/01/24 13:42> Result diagrams: 11/01/24 09:42 11/01/24 09:42 <Mel Villafuerte APRN - Last Filed: 11/01/24 13:42> Labs: Lab Results 11/01/24 11/01/24 11/01/24 Range/Units 09:42 10:27 11:32 WBC 12.2 H (4.5-10.0) K/mm3 RBC 4.76 (4.2-5.4) M/mm3 Hgb 15.3 H D (12.0-15.0) g/dL Hct 45.5 (37.0-47.0) % MCV 95.6 (80-100) fl MCH 32.1 (26-34) pg MCHC 33.6 (32-36) g/dl RDW 15.5 H (11.5-14.5) % Plt Count 485 H D (150-375) k/mm3 MPV 9.6 (7.4-10.4) fl Immature Gran % (Auto) 0.7 H (0-0.5) % Neut % (Auto) 62.3 (45.5-73.1) % Lymph % (Auto) 21.7 (18.3-44.2) % [place] % (Auto) 11.6 H (2.6-8.5) % Eos % (Auto) 3.0 (0-4.4) % Baso % (Auto) 0.7 (0.2-1.2) % Lymph # (Auto) 2.64 (0.9-3.2) K/mm3 [place] # (Auto) 1.4 H (0.1-0.6) K/mm3 Eos # (Auto) 0.4 H (0-0.3) K/mm3 Baso # (Auto) 0.1 (0.0-0.1) K/mm3 Abs Immat Gran (auto) 0.09 H (0.00-0.031) K/mm3 Absolute Neuts (auto) 7.6 H (1.3-6.7) K/mm3 Absolute Nucleated RBC 0.000 (0.0-0.012) K/mm3 Nucleated RBC % 0.0 (0.0-0.2) % PT 14.3 (11.1-14.7) Seconds INR 1.1 APTT 30.3 (22.3-36.8) Seconds Sodium 134 L (137-145) mmol/L Potassium 4.2 (3.4-5.0) mmol/L Chloride 95 L (98-107) mmol/L Carbon Dioxide 28 (22-30) mmol/L Anion Gap 11 (4-12) mmol/L BUN 13 D (7-17) mg/dL Creatinine 1.25 H (0.7-1.0) mg/dL Estim Creat Clear Calc 32 ml/min Estimated GFR 42 L (59 - ) Glucose 113 H (65-110) mg/dL Lactic Acid 1.9 (0.7-2.0) mmol/L Calcium 10.4 H (8.4-10.2) mg/dL Total Bilirubin 0.6 (0.2-1.3) mg/dL AST 48 H (14-36) U/L ALT 22 (6-35) U/L Alkaline Phosphatase 88 (38-126) U/L Troponin I < 0.012 (0.000-0.034) ng/mL C-Reactive Protein (<1.0) mg/dL Total Protein 8.5 H (6.3-8.2) g/dL Albumin 4.3 (3.5-5.1) g/dL Lipase 62 (23-300) U/L Urine Color Dark yellow (Yellow) Urine Appearance Cloudy H (Clear) Urine pH 5.0 (5.0-9.0) Ur Specific [place] 1.031 (1.001-1.035) Urine Protein 1+ H (Negative) mg/dL Urine Glucose (UA) Negative (Negative) mg/dL Urine Ketones Trace H (Negative) mg/dL Ur Blood (Man) Negative (Negative) Urine Nitrate Negative (Negative) Urine Bilirubin 1+ H (Negative) Urine Urobilinogen 1.0 (<2.0) mg/dL Add Ur Microanalysis Reviewed Leukocyte Esterase Rfl 1+ H (Negative) [place]/UL Urine RBC 6-10 H (0-2) /hpf Urine WBC 0-5 (0-3) /hpf Ur Squamous Epith Cells Many H (Few) /hpf Urine Bacteria None seen /hpf Urine Casts >20 07/31/25 Range/Units 12:24 WBC (4.5-10.0) K/mm3 RBC (4.2-5.4) M/mm3 Hgb (12.0-15.0) g/dL Hct (37.0-47.0) % MCV (80-100) fl MCH (26-34) pg MCHC (32-36) g/dl RDW (11.5-14.5) % Plt Count (150-375) k/mm3 MPV (7.4-10.4) fl Immature Gran % (Auto) (0-0.5) % Neut % (Auto) (45.5-73.1) % Lymph % (Auto) (18.3-44.2) % [place] % (Auto) (2.6-8.5) % Eos % (Auto) (0-4.4) % Baso % (Auto) (0.2-1.2) % Lymph # (Auto) (0.9-3.2) K/mm3 [place] # (Auto) (0.1-0.6) K/mm3 Eos # (Auto) (0-0.3) K/mm3 Baso # (Auto) (0.0-0.1) K/mm3 Abs Immat Gran (auto) (0.00-0.031) K/mm3 Absolute Neuts (auto) (1.3-6.7) K/mm3 Absolute Nucleated RBC (0.0-0.012) K/mm3 Nucleated RBC % (0.0-0.2) % PT 14.9 H (11.1-14.7) Seconds INR 1.2 APTT 30.0 (22.3-36.8) Seconds Sodium (137-145) mmol/L Potassium (3.4-5.0) mmol/L Chloride (98-107) mmol/L Carbon Dioxide (22-30) mmol/L Anion Gap (4-12) mmol/L BUN (7-17) mg/dL Creatinine (0.7-1.0) mg/dL Estim Creat Clear Calc ml/min Estimated GFR (59 - ) Glucose (65-110) mg/dL Lactic Acid 1.3 (0.7-2.0) mmol/L Calcium (8.4-10.2) mg/dL Total Bilirubin (0.2-1.3) mg/dL AST (14-36) U/L ALT (6-35) U/L Alkaline Phosphatase (38-126) U/L Troponin I (0.000-0.034) ng/mL C-Reactive Protein 1.7 H (<1.0) mg/dL Total Protein (6.3-8.2) g/dL Albumin (3.5-5.1) g/dL Lipase (23-300) U/L Urine Color (Yellow) Urine Appearance (Clear) Urine pH (5.0-9.0) Ur Specific [place] (1.001-1.035) Urine Protein (Negative) mg/dL Urine Glucose (UA) (Negative) mg/dL Urine Ketones (Negative) mg/dL Ur Blood (Man) (Negative) Urine Nitrate (Negative) Urine Bilirubin (Negative) Urine Urobilinogen (<2.0) mg/dL Add Ur Microanalysis Leukocyte Esterase Rfl (Negative) [place]/UL Urine RBC (0-2) /hpf Urine WBC (0-3) /hpf Ur Squamous Epith Cells (Few) /hpf Urine Bacteria /hpf Urine Casts <Mel Villafuerte, CLOTH PRINTER - Last Filed: 11/01/24 13:42> Lab Results 11/01/24 11/01/24 11/01/24 Range/Units 09:42 10:27 11:32 WBC 12.2 H (4.5-10.0) K/mm3 RBC 4.76 (4.2-5.4) M/mm3 Hgb 15.3 H D (12.0-15.0) g/dL Hct 45.5 (37.0-47.0) % MCV 95.6 (80-100) fl MCH 32.1 (26-34) pg MCHC 33.6 (32-36) g/dl RDW 15.5 H (11.5-14.5) % Plt Count 485 H D (150-375) k/mm3 MPV 9.6 (7.4-10.4) fl Immature Gran % (Auto) 0.7 H (0-0.5) % Neut % (Auto) 62.3 (45.5-73.1) % Lymph % (Auto) 21.7 (18.3-44.2) % [place] % (Auto) 11.6 H (2.6-8.5) % Eos % (Auto) 3.0 (0-4.4) % Baso % (Auto) 0.7 (0.2-1.2) % Lymph # (Auto) 2.64 (0.9-3.2) K/mm3 [place] # (Auto) 1.4 H (0.1-0.6) K/mm3 Eos # (Auto) 0.4 H (0-0.3) K/mm3 Baso # (Auto) 0.1 (0.0-0.1) K/mm3 Abs Immat Gran (auto) 0.09 H (0.00-0.031) K/mm3 Absolute Neuts (auto) 7.6 H (1.3-6.7) K/mm3 Absolute Nucleated RBC 0.000 (0.0-0.012) K/mm3 Nucleated RBC % 0.0 (0.0-0.2) % PT 14.3 (11.1-14.7) Seconds INR 1.1 APTT 30.3 (22.3-36.8) Seconds Sodium 134 L (137-145) mmol/L Potassium 4.2 (3.4-5.0) mmol/L Chloride 95 L (98-107) mmol/L Carbon Dioxide 28 (22-30) mmol/L Anion Gap 11 (4-12) mmol/L BUN 13 D (7-17) mg/dL Creatinine 1.25 H (0.7-1.0) mg/dL Estim Creat Clear Calc 32 ml/min Estimated GFR 42 L (59 - ) Glucose 113 H (65-110) mg/dL Lactic Acid 1.9 (0.7-2.0) mmol/L Calcium 10.4 H (8.4-10.2) mg/dL Total Bilirubin 0.6 (0.2-1.3) mg/dL AST 48 H (14-36) U/L ALT 22 (6-35) U/L Alkaline Phosphatase 88 (38-126) U/L Troponin I < 0.012 (0.000-0.034) ng/mL C-Reactive Protein (<1.0) mg/dL Total Protein 8.5 H (6.3-8.2) g/dL Albumin 4.3 (3.5-5.1) g/dL Lipase 62 (23-300) U/L Urine Color Dark yellow (Yellow) Urine Appearance Cloudy H (Clear) Urine pH 5.0 (5.0-9.0) Ur Specific [place] 1.031 (1.001-1.035) Urine Protein 1+ H (Negative) mg/dL Urine Glucose (UA) Negative (Negative) mg/dL Urine Ketones Trace H (Negative) mg/dL Ur Blood (Man) Negative (Negative) Urine Nitrate Negative (Negative) Urine Bilirubin 1+ H (Negative) Urine Urobilinogen 1.0 (<2.0) mg/dL Add Ur Microanalysis Reviewed Leukocyte Esterase Rfl 1+ H (Negative) [place]/UL Urine RBC 6-10 H (0-2) /hpf Urine WBC 0-5 (0-3) /hpf Ur Squamous Epith Cells Many H (Few) /hpf Urine Bacteria None seen /hpf Urine Casts >20 / Range/Units 12:24 WBC (4.5-10.0) K/mm3 RBC (4.2-5.4) M/mm3 Hgb (12.0-15.0) g/dL Hct (37.0-47.0) % MCV (80-100) fl MCH (26-34) pg MCHC (32-36) g/dl RDW (11.5-14.5) % Plt Count (150-375) k/mm3 MPV (7.4-10.4) fl Immature Gran % (Auto) (0-0.5) % Neut % (Auto) (45.5-73.1) % Lymph % (Auto) (18.3-44.2) % [place] % (Auto) (2.6-8.5) % Eos % (Auto) (0-4.4) % Baso % (Auto) (0.2-1.2) % Lymph # (Auto) (0.9-3.2) K/mm3 [place] # (Auto) (0.1-0.6) K/mm3 Eos # (Auto) (0-0.3) K/mm3 Baso # (Auto) (0.0-0.1) K/mm3 Abs Immat Gran (auto) (0.00-0.031) K/mm3 Absolute Neuts (auto) (1.3-6.7) K/mm3 Absolute Nucleated RBC (0.0-0.012) K/mm3 Nucleated RBC % (0.0-0.2) % PT 14.9 H (11.1-14.7) Seconds INR 1.2 APTT 30.0 (22.3-36.8) Seconds Sodium (137-145) mmol/L Potassium (3.4-5.0) mmol/L Chloride (98-107) mmol/L Carbon Dioxide (22-30) mmol/L Anion Gap (4-12) mmol/L BUN (7-17) mg/dL Creatinine (0.7-1.0) mg/dL Estim Creat Clear Calc ml/min Estimated GFR (59 - ) Glucose (65-110) mg/dL Lactic Acid 1.3 (0.7-2.0) mmol/L Calcium (8.4-10.2) mg/dL Total Bilirubin (0.2-1.3) mg/dL AST (14-36) U/L ALT (6-35) U/L Alkaline Phosphatase (38-126) U/L Troponin I (0.000-0.034) ng/mL C-Reactive Protein 1.7 H (<1.0) mg/dL Total Protein (6.3-8.2) g/dL Albumin (3.5-5.1) g/dL Lipase (23-300) U/L Urine Color (Yellow) Urine Appearance (Clear) Urine pH (5.0-9.0) Ur Specific [place] (1.001-1.035) Urine Protein (Negative) mg/dL Urine Glucose (UA) (Negative) mg/dL Urine Ketones (Negative) mg/dL Ur Blood (Man) (Negative) Urine Nitrate (Negative) Urine Bilirubin (Negative) Urine Urobilinogen (<2.0) mg/dL Add Ur Microanalysis Leukocyte Esterase Rfl (Negative) [place]/UL Urine RBC (0-2) /hpf Urine WBC (0-3) /hpf Ur Squamous Epith Cells (Few) /hpf Urine Bacteria /hpf Urine Casts <Prosper Alvarado MD - Last Filed: 11/01/24 18:14> Imaging Data Attestation: I personally reviewed and interpreted this imaging study as follows: < Mel Villafuerte APRN - Last Filed: 11/01/24 13:42> Radiologist's impression: ITS Impressions Chest X-Ray 11/01/24 10:18 Impression: 1: Progression of spiculated right upper lobe mass with associated calcifications. Cannot exclude malignancy. Recommend further evaluation with CT- guided biopsy or pet/CT scan. Abdomen/Pelvis CT 11/01/24 10:37 IMPRESSION: Multiple loops of dilated, fluid-filled, featureless small bowel with segments of mural thickening within portions of the the colon (which demonstrate diverticulosis). This constellation of findings suggest a possible ileus, rather than a discrete bowel obstruction. No fat plane between the uterus and the thickened loop of distal sigmoid colon with presacral induration in the left hemipelvis. Chest CT 11/01/24 11:15 IMPRESSION: 1. Mild to moderate emphysema with persistent tree-in-bud opacities in the dependent left lower lobe consistent with bronchiolitis. 2. No recent interval change in a 4.6 x 3.5 similar thick-walled centrally cavitary lesion at the right apex which is decreased in size and degree of wall thickening since 2022, likely scarring as sequela of chronic infection. <Mel Villafuerte APRN - Last Filed: 11/01/24 13:42> ITS Impressions Chest X-Ray 11/01/24 10:18 Impression: 1: Progression of spiculated right upper lobe mass with associated calcifications. Cannot exclude malignancy. Recommend further evaluation with CT- guided biopsy or pet/CT scan. Abdomen/Pelvis CT 11/01/24 10:37 IMPRESSION: Multiple loops of dilated, fluid-filled, featureless small bowel with segments of mural thickening within portions of the the colon (which demonstrate diverticulosis). This constellation of findings suggest a possible ileus, rather than a discrete bowel obstruction. No fat plane between the uterus and the thickened loop of distal sigmoid colon with presacral induration in the left hemipelvis. Chest CT 11/01/24 11:15 IMPRESSION: 1. Mild to moderate emphysema with persistent tree-in-bud opacities in the dependent left lower lobe consistent with bronchiolitis. 2. No recent interval change in a 4.6 x 3.5 similar thick-walled centrally cavitary lesion at the right apex which is decreased in size and degree of wall thickening since 2022, likely scarring as sequela of chronic infection. <Prosper Alvarado MD - Last Filed: 11/01/24 18:14> Discharge Plan Discharge Clinical Impression: Colitis, GOYO (acute kidney injury) <Mel Villafuerte APRN - Last Filed: 11/01/24 13:42> Patient Disposition: Still a Patient <Mel Villafuerte APRN - Last Filed: 11/01/24 13:42> Condition: Stable <Mel Villafuerte APRN - Last Filed: 11/01/24 13:42>
--- NOTE | 2024-11-01 09:48 | ECG_ITS ---
Test Date: 2024-11-01 13:29:29 Measurements Intervals [place] Rate: 81 P: 68 HI: 179 QRS: 13 QRSD: 68 T: 47 QT: 364 QTc: 425 Interpretive Statements SINUS RHYTHM WITH OCCASIONAL SUPRAVENTRICULAR PREMATURE COMPLEXES CONSIDER INFERIOR INFARCT, AGE INDETERMINATE BASELINE ARTIFACT- I, III, AVR, AVL, AVF, V4-V6 ABNORMAL ECG Compared to ECG 05/02/2024 14:00:18 Sinus arrhythmia no longer present Electronically Signed On 11-02-2024 06:01:59 CDT by [place] Roman D.O.
[2024-11-01] MEDS: FAMOTIDINE 20 MG/2 ML VIAL IV PUSH (09:56)
[2024-11-01] MEDS: MORPHINE SULFATE (*CRX) 4 MG/ML INJ IV PUSH (09:56)
[2024-11-01] MEDS: ONDANSETRON INJ 4 MG/2 ML VIAL IV PUSH (09:56)
[2024-11-01] MEDS: SODIUM CHLORIDE 0.9% IV 1,000 ML 999 ML IV CONT (09:56)
[2024-11-01 10:08] LABS: Hematocrit 45.5 % (37.0-47.0); Hemoglobin 15.3 g/dL (12.0-15.0); Immature Granulocyte Percent A 0.7 % (0-0.5); Lymphocytes Absolute Auto 2.64 K/mm3 (0.9-3.2); Mean Corpuscular HGB Conc 33.6 g/dl (32-36); Mean Corpuscular Hemoglobin 32.1 pg (26-34); Mean Corpuscular Volume 95.6 fl (80-100); Nucleated Red Blood Cells Absolute Auto 0.000 K/mm3 (0.0-0.012); Nucleated Red Blood Cells Perc 0.0 % (0.0-0.2); Platelet Count Result 485 k/mm3 (150-375); Red Blood Count 4.76 M/mm3 (4.2-5.4); White Blood Count 12.2 K/mm3 (4.5-10.0)
[2024-11-01 10:20] LABS: Alanine Aminotransferase 22 U/L (6-35); Albumin Level 4.3 g/dL (3.5-5.1); Alkaline Phosphatase 88 U/L (38-126); Anion Gap 11 mmol/L (4-12); Aspartate Amino Transferase 48 U/L (14-36); Bilirubin,Total 0.6 mg/dL (0.2-1.3); Blood Urea Nitrogen 13 mg/dL (7-17); Calcium 10.4 mg/dL (8.4-10.2); Carbon Dioxide 28 mmol/L (22-30); Chloride 95 mmol/L (98-107); Estimated CRCL calculation 32 ml/min; Estimated Glomerular Filt Rate 42; Glucose 113 mg/dL (65-110); Lipase 62 U/L (23-300); Potassium 4.2 mmol/L (3.4-5.0); Sodium 134 mmol/L (137-145); Total Protein 8.5 g/dL (6.3-8.2)
[2024-11-01 10:24] LABS: INR 1.1; Partial Thromboplastin Time 30.3 Seconds (22.3-36.8); Prothrombin Time 14.3 Seconds (11.1-14.7)
[2024-11-01 10:28] LABS: Troponin I < 0.012 ng/mL (0.000-0.034)
[2024-11-01 12:01] LABS: Add Urine Microscopic? YES; Appearance Urine Cloudy (Clear); Glucose Urine UA Negative (Negative); Leukocyte Esterase Ur 1+ LEU/UL (Negative); Need Manual Microscopic Reviewed; Nitrate Urine Negative (Negative); Non Pathogenic Casts >20; Specific Grav Ur 1.031 (1.001-1.035)
[2024-11-01 12:55] LABS: INR 1.2; Prothrombin Time 14.9 Seconds (11.1-14.7)
[2024-11-01 12:56] LABS: Partial Thromboplastin Time 30.0 Seconds (22.3-36.8)
[2024-11-01 13:08] LABS: CRP 1.7 mg/dL (<1.0)
--- NOTE | 2024-11-01 13:13 | P.HP_ITS ---
H&P: HPI History of Present Illness Date/Time: 11/01/24 13:13 Chief Complaint: Abdominal pain Narrative: 74-year-old female presents to hospital with abdominal pain. Patient was recently admitted into the hospital and discharged on 10/27/2024 with concerns for ileus versus colitis patient was started on a bowel regimen and since home 5 days of oral antibiotics with recommendations for follow-up with her PCP. Patient states that she has continued to have abdominal pain and diarrhea. Lab work in the ED showed leukocytosis full 0.2, hemoglobin 15.3 with baseline being around 12.5, sodium of 134 creatinine 01.25 with baseline being around 0.6, calcium 10.4, CRP 1.7, UA shows 1+ bilirubin, 1+ leukocyte esterase with many squamous cells. CT of the abdomen and pelvis show Multiple loops of dilated, fluid-filled, featureless small bowel with segments of mural thickening within portions of the the colon most likely ileus. CT chest shows Mild to moderate emphysema with persistent tree-in-bud opacities in the dependent left lower lobe consistent with bronchiolitis. Patient started on Zosyn given 1 L of IV fluids in emergency room. C diff negative Review of Systems Review of Systems: 12 systems were reviewed and are negativ e except for as per HPI. [facility] Past Medical History Medical History DVT (deep venous thrombosis) 2023 Hemochromatosis Alcohol use Patient reports that she quit drinking alcohol in 2022 Cirrhosis Family history of colon cancer in father Gastritis and duodenitis Elevated ferritin Fatty liver History of bruising easily Family hx of colon cancer Hypertension COPD (chronic obstructive pulmonary disease) Surgical History Surgical History History of tooth extraction H/O colonoscopy with polypectomy H/O tubal ligation S/P tonsillectomy History of colon surgery cecum History of appendectomy Family History Family History Father Colon cancer Mother Heart failure Social History Social History Social History: 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 She lives with a roommate. She is and has 4 children. She has smoked 1- 1.5 packs of cigarettes per day since she was a teenager. She used to drink 4-5 alcoholic beverages a day but quit drinking approximately 2022. code status full code Smoking packs per day: 1 Smoking cigarettes per day: 20.0 Years smoked: 60 Smoking pack-years: 60.00 Smoking status: Current every day smoker Tobacco type: cigarettes Second hand tobacco smoke exposure: No Alcohol intake: former Drinks per week: 0 Alcohol use details: 5 shots per day Substance use: never Substance use type: does not use Do You Feel Safe in your Home?: Yes Lack of Transportation: No Lack of Food: Never True Current Housing: I Have Housing Concerned About Future Housing: No Difficulty Paying Gas/Electric Bills: No Difficulty Paying for Meds: No Currently Unemployed: No Education: Decline to Answer Difficulty w/ Childcare or Family Care: No Living arrangements: alone Occupation/Education: occupation 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/education comments: [employer]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 Gender identity (if verbalized by the patient): Female Spiritual care concerns: No Agree to blood products: Yes Meds Home Medications and Allergies Home Medications ?Medication ?Instructions ?Recorded ?Confirmed ?Type albuterol sulfate 90 mcg/actuation 1 - 2 inh inhalation Q4-6H PRN 02/03/24 11/01/24 Rx aerosol inhaler shortness of breath or wheezing #8.5 grams Trelegy Ellipta 100 mcg-62.5 1 inh inhalation DAILY #60 ea 02/06/24 11/01/24 Rx mcg-25 mcg powder for inhalation (exlknjchhcn-fkfptywws-ltcojutg) aspirin 81 mg tablet,delayed 81 mg PO DAILY 05/16/24 11/01/24 History release folic acid 1 mg tablet 1 mg PO DAILY 06/14/24 11/01/24 History mecobalamin (vitamin B12) 500 mcg 500 mcg PO DAILY 06/14/24 11/01/24 History chewable tablet multivitamin (Daily Multi-Vitamin 1 tablet PO DAILY 10/22/24 11/01/24 History tablet) Allergies Allergy/AdvReac Type Severity Reaction Status Date / Time mercury (elemental) Allergy Unknown Verified 11/01/24 18:00 Iodine and Iodide Containing AdvReac Rash Verified 11/01/24 18:00 Produc Vital Signs Vital Signs - 24 hr 11/01/24 09:26 11/01/24 09:45 Temperature 97.2 F L Pulse Rate 122 H 97 Respiratory Rate 26 H 30 H Blood Pressure 113/79 121/71 Pulse Oximetry 100 97 Exam Narrative: General: well appearing, appears stated age. HEENT: normocephalic, atraumatic. Mucous membranes moist. EOMI, PERRLA, bilateral sclera anicteric, no conjunctival injection. Neck supple without JVD, lymphadenopathy, or bruit. Respiratory: clear to ascultation bilaterally. No rales/rhonic/wheezes. Cardiovascular: Regular rate and rhythm, normal S1-S2 upon ascultation. No murmurs, rubs, or clicks. PMI is nondisplaced, capillary refill less than 3 second. Abdomen: Soft, round, no pulsatile masses, nondistended and nontender. No rebound, no guarding. No CVA tenderness, no hepatosplenomegaly. Bowel sounds present to all four quadrants. No high pitch or tinkling sounds, resonant to percussion. Extremities: No cyanosis, clubbing, or edema present. Pulses are palpable 2/2. Active ROM to all four extremities. Neuro: Alert and orientated x 4. PERRLA. Cranial nerves 2-12 intact without focal deficit. Skin: Warm, dry, and intact, without rash, erythema, or lesion. Psych: pleasant, cooperative, normal speech, normal affect, no hallucinations, no dysarthia H&P: Results Labs Labs: Short CBC 11/01/24 Range/Units 09:42 WBC 12.2 H (4.5-10.0) K/mm3 Hgb 15.3 H D (12.0-15.0) g/dL Hct 45.5 (37.0-47.0) % Plt Count 485 H D (150-375) k/mm3 BMP 11/01/24 09:42 Sodium 134 L Potassium 4.2 Chloride 95 L Carbon Dioxide 28 BUN 13 D Creatinine 1.25 H Glucose 113 H Calcium 10.4 H Cardiac Enzymes 11/01/24 Range/Units 09:42 Troponin I < 0.012 (0.000-0.034) ng/mL Liver Function 11/01/24 Range/Units 09:42 Total Bilirubin 0.6 (0.2-1.3) mg/dL AST 48 H (14-36) U/L ALT 22 (6-35) U/L Alkaline Phosphatase 88 (38-126) U/L Albumin 4.3 (3.5-5.1) g/dL Urine 11/01/24 Range/Units 11:32 Urine Color Dark yellow (Yellow) Urine Appearance Cloudy H (Clear) Urine pH 5.0 (5.0-9.0) Ur Specific [place] 1.031 (1.001-1.035) Urine Protein 1+ H (Negative) mg/dL Urine Glucose (UA) Negative (Negative) mg/dL Assessment and Plan Assessment and plan (1) Ileus: Code(s): K56.7 - Ileus, unspecified Status: Acute Assessment and Plan: Ileus seen on CT However patient is having frequent diarrhea Surgery consulted C diff negative (2) Acute colitis: Code(s): K52.9 - Noninfective gastroenteritis and colitis, unspecified Status: Acute Assessment and Plan: GI consulted Failed p.o. outpatient antibiotics IV Zosyn C diff negative (3) Acute dehydration: Code(s): E86.0 - Dehydration Status: Acute Assessment and Plan: Likely due to diarrhea and poor p.o. intake 1 L bolus given in the ED IVF at 125 Repeat BMP in the morning (4) Leukocytosis: Code(s): D72.829 - Elevated white blood cell count, unspecified Status: Acute Assessment and Plan: Possible GI infection IV Zosyn Blood cultures pending No SSI Respiratory panel negative Quality VTE Prophylaxis VTE prophylaxis: mechanical ordered and pharmacologic ordered Hospitalist MIPS Advance Care Plan I have confirmed that the patient's Advanced Care Plan is present, code status is documented, or surrogate decision maker is listed in patient medical record.: Yes Medication Reconciliation I have utilized all available resources to obtain, update and review the patients current medications (includes all prescriptions, OTC, herbals, cannabis, and nutritional supplements).: Yes
[2024-11-01] MEDS: PIPERACILLIN/TAZOBACTAM SOD 3.375 GM in SODIUM CHLORIDE 0.9% IV 50 ML 100 ML IVPB ×2 (13:18→23:31)
--- NOTE | 2024-11-01 14:07 | P.CONGS_ITS ---
Assessment and Plan Assessment and plan (1) Colitis: Code(s): K52.9 - Noninfective gastroenteritis and colitis, unspecified Status: Acute Assessment and Plan: * Patient recently treated for colitis with IV antibiotics and discharged on Augmentin/Flagyl 5 days ago. She returns with worsening symptoms, that never completely resolved. Repeat CT scan showed mural thickening of the ascending, proximal transverse, and rectosigmoid colon that could be related to colitis vs diverticulitis. Still no evidence of perforation or abscess. Her lactic acid was normal and WBC count mildly elevated at 12,000. No peritoneal signs on exam. No indication for surgical management at this time. Agree with GI consultation. Continue medical management with antibiotics and we will monitor with serial exams and labs. (2) Ileus: Code(s): K56.7 - Ileus, unspecified Status: Acute Assessment and Plan: * CT showed dilated small bowel with no discrete transition point, more likely an ileus than a small bowel obstruction. Likely related to her colitis. She is distended but still having some bowel function with a bowel movement this morning and no vomiting today. Will defer NG tube at this time, but she may need NG tube placement if she begins vomiting. Continue to monitor with with serial abdominal exams and labs. Continue to treat colitis as mentioned above. (3) GOYO (acute kidney injury): Code(s): N17.9 - Acute kidney failure, unspecified Status: Acute Assessment and Plan: * Creatinine 1.25 on admission. Continue IV fluids and monitor labs. (4) Fatty liver: Code(s): K76.0 - Fatty (change of) liver, not elsewhere classified Status: Acute Assessment and Plan: * Follows with GI as an outpatient and diagnosed with hereditary hemochromatosis. (5) COPD (chronic obstructive pulmonary disease): Qualifiers: COPD type: unspecified COPD Qualified Code(s): J44.9 - Chronic obstructive pulmonary disease, unspecified Code(s): J44.9 - Chronic obstructive pulmonary disease, unspecified Status: Acute (6) Nicotine dependence: Qualifiers: Nicotine product type: cigarettes Substance use status: unspecified nicotine-induced disorder Qualified Code(s): F17.219 - Nicotine dependence, cigarettes, with unspecified nicotine-induced disorders Code(s): F17.200 - Nicotine dependence, unspecified, uncomplicated Status: Chronic Plan I have discussed the patient's case and plan of care with Dr. Barajas. Thank you for allowing us to see the patient in consultation and we will continue to follow along with you. History of Present Illness Consult details Consult date: 11/01/24 Reason for consult: other (Colitis) Requesting physician: Rebeca Richmond APRN Narrative: This is a 74-year-old female with history of COPD, fatty liver/hereditary hemochromatosis, tobacco abuse, and a recent hospitalization for colitis from 10/22/24 - 10/27/24. She was treated with IV antibiotics and eventually discharged on Augmentin and Flagyl x 5 days. She reports having some mild lower abdominal pain when discharged, which continued at home. She reports associated nausea and few episodes of NBNB emesis. She has not eaten much due to nausea, but was able to keep fluids down and feels she has been drinking well. She reports having soft bowel movements that are slightly mucousy, but no blood in her stool and denies diarrhea. Her last BM was this morning, but small, and she is passing some flatus. She reports developing abdominal distention and bloating, and her abdominal pain became worse over the past day or so, therefore she called Dr. Mosqueda's office. She was supposed to f/u with him as an outpatient in 2 weeks, but they were unable to get her in sooner, so they directed her to the ED. Vital signs stable in the ED. Labs showed a WBC Count of 12,200, hgb 15.3, platelets 485k, creatinine 1.25, lactic acid 1.9 with repeat at 1.3, CRP 1.7, troponin negative. CT scan of the chest, abdomen and pelvis without IV contrast showed mild to moderate emphysema with LLL bronchiolitis, unchanged right apical lesion, multiple loops of dilated fluid-filled small bowel with segments of mural thickening in the ascending, transverse, and rectosigmoid colon. Constellation of findings suggests a possible ileus rather than a bowel obstruction. Our service was consulted. GI Has been consulted. She was given 1 dose of IV Zosyn in the ED and IV fluids. She is now seen in the ER. Her abdominal pain has improved since receiving Morphine. She still feel very bloated. Denies previous colonoscopy. Previous abdominal surgeries include cecectomy over 20 years ago and tubal ligation. Review of Systems 2 Review of Systems: All systems reviewed & are unremarkable except as noted in HPI and below PMFSH Past Medical History Medical History DVT (deep venous thrombosis) 2023 Hemochromatosis Alcohol use Patient reports that she quit drinking alcohol in 2022 Cirrhosis Family history of colon cancer in father Gastritis and duodenitis Elevated ferritin Fatty liver History of bruising easily Family hx of colon cancer Hypertension COPD (chronic obstructive pulmonary disease) Surgical History Surgical History History of tooth extraction H/O colonoscopy with polypectomy H/O tubal ligation S/P tonsillectomy History of colon surgery cecum History of appendectomy Family History Family History Father Colon cancer Mother Heart failure Social History Social History Social History: 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 She lives with a roommate. She is and has 4 children. She has smoked 1- 1.5 packs of cigarettes per day since she was a teenager. She used to drink 4-5 alcoholic beverages a day but quit drinking approximately 2022. code status full code Smoking packs per day: 1 Smoking cigarettes per day: 20.0 Years smoked: 60 Smoking pack-years: 60.00 Smoking status: Current every day smoker Tobacco type: cigarettes Second hand tobacco smoke exposure: No Alcohol intake: former Drinks per week: 4 Alcohol use details: 5 shots per day Substance use: never Substance use type: does not use Do You Feel Safe in your Home?: Yes Lack of Transportation: No Lack of Food: Never True Current Housing: I Have Housing Concerned About Future Housing: No Difficulty Paying Gas/Electric Bills: No Difficulty Paying for Meds: No Currently Unemployed: No Education: High School Diploma/GED Difficulty w/ Childcare or Family Care: No Living arrangements: alone Occupation/Education: occupation 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 Gender identity (if verbalized by the patient): Female Spiritual care concerns: Yes Agree to blood products: Yes Meds Home Medications and Allergies Home Medications ?Medication ?Instructions ?Recorded ?Confirmed ?Type albuterol sulfate 90 mcg/actuation 1 - 2 inh inhalation Q4-6H PRN 02/03/24 10/22/24 Rx aerosol inhaler shortness of breath or wheezing #8.5 grams Trelegy Ellipta 100 mcg-62.5 1 inh inhalation DAILY #60 ea 02/06/24 10/22/24 Rx mcg-25 mcg powder for inhalation (gahzdazaqsw-jcxkesiic-dbbgxogu) aspirin 81 mg tablet,delayed 81 mg PO DAILY 05/16/24 10/22/24 History release folic acid 1 mg tablet 1 mg PO DAILY 06/14/24 10/22/24 History mecobalamin (vitamin B12) 500 mcg 500 mcg PO DAILY 06/14/24 10/22/24 History chewable tablet multivitamin (Daily Multi-Vitamin 1 tablet PO DAILY 10/22/24 10/22/24 History tablet) amoxicillin 875 mg-potassium 1 tablet PO Q12H #10 tabs 10/27/24 Rx clavulanate 125 mg tablet fluconazole 100 mg tablet 100 mg PO QAM #2 tabs 10/27/24 Rx (Diflucan) metronidazole 500 mg tablet 500 mg PO Q8HR #15 tabs 10/27/24 Rx Allergies Allergy/AdvReac Type Severity Reaction Status Date / Time mercury (elemental) Allergy Unknown Verified 10/22/24 20:22 Iodine and Iodide Containing AdvReac Rash Verified 10/22/24 20:22 Produc Vital Signs Vital Signs - 24 hr 11/01/24 09:26 11/01/24 09:45 11/01/24 11:31 Temperature 97.2 F L Pulse Rate 122 H 97 94 Respiratory Rate 26 H 30 H 18 Blood Pressure 113/79 121/71 Pulse Oximetry 100 97 11/01/24 11:50 11/01/24 12:02 11/01/24 12:43 Temperature Pulse Rate 88 86 Respiratory Rate 19 21 H 22 H Blood Pressure Pulse Oximetry 96 93 11/01/24 12:50 Temperature Pulse Rate 87 Respiratory Rate 16 Blood Pressure 117/72 Pulse Oximetry 93 Exam 2 Const: General: comfortable and no acute distress Nutritional Appearance: a verage body habitus Orientation/consciousness: patient oriented x3 HENMT: Head: normocephalic and atraumatic Ears: hearing grossly normal bilaterally Mouth: Yes moist mucous membranes Eyes: General: appearance normal, both eyes and all related structures P upils: Equal, round and reactive pupils present Neck: Neck: normal visual inspection and full ROM Resp: Effort & Inspection: no respiratory distress Auscultation: clear to auscultation bilaterally Cardio: Rate: regular rate Rhythm: regular rhythm Peripheral pulses: P eripheral pulses 2+ throughout GI: Inspection: distended and striae GI Palp: Yes Soft to palpation, Yes Tenderness to palpation present (GI) (diffusely tender worse in the lower abdomen), No Guarding due to palpation present (GI) and No Rebound tenderness present Auscultation: High-pitched bowel sounds present (hypoactive tinkling bowel sounds) Skin: General skin exam: normal color Neuro: General: moves all extremities and no focal motor deficits Speech: n ormal speech Motor exam (neuro): 5/5 motor strength present throughout Extrem: General: normal to inspection and no edema Psych: Mental Status: mental status grossly normal Attitude: cooperative Insight: Good insight present (Psych) Judgement: Good judgement present (Psych) Results Labs 11/01/24 09:42 11/01/24 09:42 Labs: Abnormal lab results 11/01/24 11/01/24 11/01/24 Range/Units 09:42 11:32 12:24 WBC 12.2 H (4.5-10.0) K/mm3 Hgb 15.3 H D (12.0-15.0) g/dL RDW 15.5 H (11.5-14.5) % Plt Count 485 H D (150-375) k/mm3 Immature Gran % (Auto) 0.7 H (0-0.5) % M[place]rack[place] % (Auto) 11.6 H (2.6-8.5) % [place] # (Auto) 1.4 H (0.1-0.6) K/mm3 Eos # (Auto) 0.4 H (0-0.3) K/mm3 Abs Immat Gran (auto) 0.09 H (0.00-0.031) K/mm3 Absolute Neuts (auto) 7.6 H (1.3-6.7) K/mm3 PT 14.9 H (11.1-14.7) Seconds Sodium 134 L (137-145) mmol/L Chloride 95 L (98-107) mmol/L Creatinine 1.25 H (0.7-1.0) mg/dL Estimated GFR 42 L (59 - ) Glucose 113 H (65-110) mg/dL Calcium 10.4 H (8.4-10.2) mg/dL AST 48 H (14-36) U/L C-Reactive Protein 1.7 H (<1.0) mg/dL Total Protein 8.5 H (6.3-8.2) g/dL Urine Appearance Cloudy H (Clear) Urine Protein 1+ H (Negative) mg/dL Urine Ketones Trace H (Negative) mg/dL Urine Bilirubin 1+ H (Negative) Leukocyte Esterase Rfl 1+ H (Negative) [place]/UL Urine RBC 6-10 H (0-2) /hpf Ur Squamous Epith Cells Many H (Few) /hpf Diabetes panel 11/01/24 Range/Units 09:42 Sodium 134 L (137-145) mmol/L Potassium 4.2 (3.4-5.0) mmol/L Chloride 95 L (98-107) mmol/L Carbon Dioxide 28 (22-30) mmol/L BUN 13 D (7-17) mg/dL Creatinine 1.25 H (0.7-1.0) mg/dL Glucose 113 H (65-110) mg/dL Calcium 10.4 H (8.4-10.2) mg/dL AST 48 H (14-36) U/L ALT 22 (6-35) U/L Alkaline Phosphatase 88 (38-126) U/L Total Protein 8.5 H (6.3-8.2) g/dL Albumin 4.3 (3.5-5.1) g/dL Calcium panel 11/01/24 Range/Units 09:42 Calcium 10.4 H (8.4-10.2) mg/dL Albumin 4.3 (3.5-5.1) g/dL Pituitary panel 11/01/24 Range/Units 09:42 Sodium 134 L (137-145) mmol/L Potassium 4.2 (3.4-5.0) mmol/L Chloride 95 L (98-107) mmol/L Carbon Dioxide 28 (22-30) mmol/L BUN 13 D (7-17) mg/dL Creatinine 1.25 H (0.7-1.0) mg/dL Glucose 113 H (65-110) mg/dL Calcium 10.4 H (8.4-10.2) mg/dL Adrenal panel 11/01/24 Range/Units 09:42 Sodium 134 L (137-145) mmol/L Potassium 4.2 (3.4-5.0) mmol/L Chloride 95 L (98-107) mmol/L Carbon Dioxide 28 (22-30) mmol/L BUN 13 D (7-17) mg/dL Creatinine 1.25 H (0.7-1.0) mg/dL Glucose 113 H (65-110) mg/dL Calcium 10.4 H (8.4-10.2) mg/dL Total Bilirubin 0.6 (0.2-1.3) mg/dL AST 48 H (14-36) U/L ALT 22 (6-35) U/L Alkaline Phosphatase 88 (38-126) U/L Total Protein 8.5 H (6.3-8.2) g/dL Albumin 4.3 (3.5-5.1) g/dL All other labs normal. Imaging Additional studies: ITS Impressions Chest X-Ray 11/01/24 10:18 Impression: 1: Progression of spiculated right upper lobe mass with associated calcifications. Cannot exclude malignancy. Recommend further evaluation with CT- guided biopsy or pet/CT scan. Abdomen/Pelvis CT 11/01/24 10:37 IMPRESSION: Multiple loops of dilated, fluid-filled, featureless small bowel with segments of mural thickening within portions of the the colon (which demonstrate diverticulosis). This constellation of findings suggest a possible ileus, rather than a discrete bowel obstruction. No fat plane between the uterus and the thickened loop of distal sigmoid colon with presacral induration in the left hemipelvis. Chest CT 11/01/24 11:15 IMPRESSION: 1. Mild to moderate emphysema with persistent tree-in-bud opacities in the dependent left lower lobe consistent with bronchiolitis. 2. No recent interval change in a 4.6 x 3.5 similar thick-walled centrally cavitary lesion at the right apex which is decreased in size and degree of wall thickening since 2022, likely scarring as sequela of chronic infection.
--- NOTE | 2024-11-01 17:53 | ADMGEN ---
This patient, Stefanie Raymundo, was admitted to [facility] Surg Room 316-02. Patient/family oriented to hospital policies and general routines including ID bracelet, bed and alarms, visiting hours, pain management, procedures, bathroom and other care routines, personal items, smoking policy, room service/diet, and visiting hours. Information on how to activate the Rapid Response Team has been discussed. Patient/Family are encouraged to report perceived risks to care and to ask questions if they do not understand what they are told or what they should do.
[2024-11-01] MEDS: SODIUM CHLORIDE 0.9% IV 1,000 ML 125 ML IV CONT (18:04)
[2024-11-01 19:47] LABS: Toxigenic C. Diff NEGATIVE (NEGATIVE)
[2024-11-02] MEDS: SODIUM CHLORIDE 0.9% IV 1,000 ML 125 ML IV CONT ×3 (03:22→20:21)
[2024-11-02] MEDS: PIPERACILLIN/TAZOBACTAM SOD 3.375 GM in SODIUM CHLORIDE 0.9% IV 50 ML 100 ML IVPB ×3 (05:55→17:11)
[2024-11-02 06:00] VITALS: BP 133/84; PULSE 95; RESP 20; TEMP 36.7; O2SAT 96
[2024-11-02 06:16] LABS: Hematocrit 36.6 % (37.0-47.0); Hemoglobin 11.9 g/dL (12.0-15.0); Immature Granulocyte Percent A 0.7 % (0-0.5); Lymphocytes Absolute Auto 2.52 K/mm3 (0.9-3.2); Mean Corpuscular HGB Conc 32.5 g/dl (32-36); Mean Corpuscular Hemoglobin 32.1 pg (26-34); Mean Corpuscular Volume 98.7 fl (80-100); Nucleated Red Blood Cells Absolute Auto 0.000 K/mm3 (0.0-0.012); Nucleated Red Blood Cells Perc 0.0 % (0.0-0.2); Platelet Count Result 378 k/mm3 (150-375); Red Blood Count 3.71 M/mm3 (4.2-5.4); White Blood Count 10.7 K/mm3 (4.5-10.0)
[2024-11-02 06:41] LABS: Anion Gap 7 mmol/L (4-12); Blood Urea Nitrogen 13 mg/dL (7-17); Calcium 8.7 mg/dL (8.4-10.2); Carbon Dioxide 25 mmol/L (22-30); Chloride 103 mmol/L (98-107); Estimated CRCL calculation 45 ml/min; Estimated Glomerular Filt Rate > 60; Glucose 80 mg/dL (65-110); Potassium 3.7 mmol/L (3.4-5.0); Sodium 135 mmol/L (137-145)
--- NOTE | 2024-11-02 08:42 | P.CONGI_ITS ---
Assessment and Plan Assessment and plan (1) Ileus: Code(s): K56.7 - Ileus, unspecified Status: Acute (2) Colitis: Code(s): K52.9 - Noninfective gastroenteritis and colitis, unspecified Status: Acute (3) Gastritis and duodenitis: Code(s): K29.90 - Gastroduodenitis, unspecified, without bleeding Status: Acute (4) Generalized abdominal discomfort: Code(s): R10.84 - Generalized abdominal pain Status: Acute Plan 1. Colitis/ileus/generalized abdominal pain: Last colonoscopy 12/05/2014 at which time she had a hyperplastic polyp removed from her rectum. Patient had a prior workup in April of 2022 which showed normal fecal elastase and calprotectin. She has no family history of IBD. Patient's father was diagnosed with colon cancer at unknown age. Patient with Hx of cecectomy > 20 years ago and tubal ligation. Multiple CT's have been done over the past month all of which showed multiple loops of dilated, fluid-filled small bowel segments with mural thickening within portions of the colon and possible ileus despite being treated with IV and oral antibiotics these findings and her symptoms have remained relatively unchanged. WBC's on admission 12.2. CRP elevated at 1.7. All of her CT where done without contrast which may lead to false bowel wall thickening due to under distention. Surgery was once again consulted and for possible ileus and there is no indication for surgical management at this time. Patient also with history of cirrhosis and hemochromatosis but this is managed outpatient. * Patient currently on Zosyn * Colonoscopy scheduled for Tuesday which will allow us to rule out or confirm persistent inflammation noted on CTs and also obtain biopsies * Ok for regular diet today * Start clear liquids tomorrow * Start bowel prep around lunch time Tuesday to allow patient more time to take prep as she had issues with the prep in the past * NPO after midnight 11/05 * Primary care team to continue supportive care 2. Gastritis/duodenitis: EGD 04/2023 showed a medium hiatal hernia measuring 3 cm. She was also noted to have moderate ulcerative gastritis and moderate duodenitis. Following her EGD she was recommended to have a repeat EGD in 4 months to assess mucosal healing but this was never completed. Patient states she has not been taking her PPI since her EGD. She is only having reflux symptoms after eating known GERD triggering foods. * EGD scheduled for Tuesday Thank you very much for allowing me to share in the care of this very nice patient. This report may have been done utilizing a voice recognition system. Attempts have been made to correct errors. However, there may be uncorrected grammatical, spelling, and recognition errors present. GI Consult Note Consult date/time: 11/02/24 08:42 HPI: Stefanie Raymundo is a 74 year old female with past medical surgical history of appendectomy, COPD, history of DVT, hemochromatosis, cirrhosis, family history of colon cancer, gastritis, duodenitis, HTN, personal history of colon polyps, appendectomy, and cecectomy. She presented to the emergency room yesterday with complaints of abdominal pain. She was admitted for colitis, acute kidney injury and possible ileus. GI has been consulted for colitis. Patient was recently admitted to [facility] October 21- at which time she was treated with IV antibiotics and discharged on a 5 day course of Augmentin and Flagyl. After discharge the patient noticed no significant change in her symptoms. She was last seen in the GI office by Dr. Mosqueda 05/16/2024 for cirrhosis, hereditary hemochromatosis and family history of colon cancer. During that visit a colonoscopy was ordered but patient declined. During today's visit she complains of generalized abdominal pain that she describes varies from an 8 to a sharp pain that is intermittent nature. Her pain has no correlation with food intake but it temporarily improved with bowel movements. She complains of abdominal bloating. She has occasional reflux after eating known GERD triggering foods. She admits to early satiety. Prior to admission she was having daily bowel movements after drinking coffee. She states that she had 2 large bowel movements yesterday that were loose. Denies any nausea, vomiting, odynophagia, dysphagia, regurgitation, appetite loss, weight loss, constipation, hematochezia, or melena. Patient states she quit drinking 5-6 months ago. She smokes 1 pack per day and denies marijuana use. Patient's father had colon cancer age of diagnosis unknown. She is on aspirin 81 mg daily but denies any other NSAID or anticoagulant use. ENDOSCOPY HISTORY: EGD: 04/28/[address] Mosqueda for early satiety and history of EtOH abuse Findings: The esophagus was examined mucosa was normal with no esophagitis, Dunn's no ulcers or masses A medium hiatal hernia was found at the GE junction. The hiatal hernia. At a depth of 35 cm to 38 cm from the incisors. This was about 3 cm in size Moderate ulcerative gastritis seen in the stomach. The gastritis had moderate erythematous, edematous, erosive and ulcerative changes. There was no mucosal bleeding. Multiple biopsies were taken for pathology and H pylori Moderate duodenitis seen in the duodenal bulb. The duodenitis add moderate erosive, edematous, erosive and ulcerative changes. There was no mucosal bleeding. Multiple biopsies were taken to rule out celiac sprue COLONOSCOPY: 12/05/2014 No colonoscopy report available but pathology provided showed a hyperplastic rectal polyp was removed LABS AND STOOL STUDIES: Labs 11/02/2024: Sodium 135, potassium 3.7, BUN 13, creatinine 0.87, GFR >60, calcium 8.7 WBC 11, Hgb 12, Hct 37, MCV 99, platelets 378, INR 1.2 Total bilirubin 0.6, AST 48, ALT 22, Alkaline Phos 88, albumin 4.3 CRP 1.7, lipase 62 Stool studies April 2023: Fecal elastase and calprotectin normal IMAGING: CT chest 11/01/2024: IMPRESSION: 1. Mild to moderate emphysema with persistent tree-in-bud opacities in the dependent left lower lobe consistent with bronchiolitis. 2. No recent interval change in a 4.6 x 3.5 similar thick-walled centrally cavitary lesion at the right apex which is decreased in size and degree of wall thickening since 2022, likely scarring as sequela of chronic infection. CT abd/pelvis w/contrast 11/01/2024: IMPRESSION: Multiple loops of dilated, fluid-filled, featureless small bowel with segments of mural thickening within portions of the the colon (which demonstrate diverticulosis). This constellation of findings suggest a possible ileus, rather than a discrete bowel obstruction. No fat plane between the uterus and the thickened loop of distal sigmoid colon with presacral induration in the left hemipelvis. CT abd/pelvis w/o contrast 10/25/2024: 1. Mild acute diverticulitis sigmoid colon. 2: Dilated fluid-filled small bowel left midabdomen with air-fluid levels. No definitive transition site identified. Findings suggest either focal adynamic ileus or partial obstruction. Consider correlation with small bowel follow- through study. CT chest/abd/pelvis w/o contrast 10/22/2024: IMPRESSION: Dependent left lower lobe tree-in-bud opacities may represent atypical infection or aspiration. Slightly decreased size of the right upper lobe cavitary lesion. Marked gallbladder hydrops, without obstructing stone or mass detected. No biliary duct dilation. Consider right upper quadrant ultrasound for further evaluation. 9 mm splenic artery aneurysm. Consider annual surveillance. Distal transverse colon and sigmoid colon wall thickening as can be seen with infectious, inflammatory, or ischemic colitis. RUQ ultrasound 04/18/2024: IMPRESSION: 1: Hepatomegaly with fatty infiltration of the liver. 2: Gallbladder polyp measuring 6 mm. Review of Systems 2 Constitutional: Constitutional: Reports as per HPI ENT: Reports as per HPI Cardiovascular: Cardiovascular: Reports as per HPI, Denies chest pain and Denies dyspnea Respiratory: Respiratory: Denies cough and Denies dyspnea Gastrointestinal: Gastrointestinal: Reports as per HPI Musculoskeletal: Musculoskeletal: Reports as per HPI Integumentary/Breasts: Skin/Breast: Reports as per HPI Psychiatric: Psychiatric: Reports as per HPI Endocrine: Endocrine: Reports no additional endocrine complaints Hematologic/Lymphatic: Hematologic/Lymphatic: Reports no additional hematologic/lymphatic complaints [facility] Past Medical History Medical History DVT (deep venous thrombosis) 2023 Hemochromatosis Alcohol use Patient reports that she quit drinking alcohol in 2022 Cirrhosis Family history of colon cancer in father Gastritis and duodenitis Elevated ferritin Fatty liver History of bruising easily Family hx of colon cancer Hypertension COPD (chronic obstructive pulmonary disease) Surgical History Surgical History History of tooth extraction H/O colonoscopy with polypectomy H/O tubal ligation S/P tonsillectomy History of colon surgery cecum History of appendectomy Family History Family History Father Colon cancer Mother Heart failure Social History Social History Social History: 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 She lives with a roommate. She is and has 4 children. She has smoked 1- 1.5 packs of cigarettes per day since she was a teenager. She used to drink 4-5 alcoholic beverages a day but quit drinking approximately 2022. code status full code Smoking packs per day: 1 Smoking cigarettes per day: 20.0 Years smoked: 60 Smoking pack-years: 60.00 Smoking status: Current every day smoker Tobacco type: cigarettes Second hand tobacco smoke exposure: No Alcohol intake: former Drinks per week: 0 Alcohol use details: 5 shots per day Substance use: never Substance use type: does not use Do You Feel Safe in your Home?: Yes Lack of Transportation: No Lack of Food: Never True Current Housing: I Have Housing Concerned About Future Housing: No Difficulty Paying Gas/Electric Bills: No Difficulty Paying for Meds: No Currently Unemployed: No Education: Decline to Answer Difficulty w/ Childcare or Family Care: No Living arrangements: alone Occupation/Education: occupation 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 Gender identity (if verbalized by the patient): Female Spiritual care concerns: No Agree to blood products: Yes Meds Home Medications and Allergies Home Medications ?Medication ?Instructions ?Recorded ?Confirmed ?Type albuterol sulfate 90 mcg/actuation 1 - 2 inh inhalation Q4-6H PRN 02/03/24 11/01/24 Rx aerosol inhaler shortness of breath or wheezing #8.5 grams Trelegy Ellipta 100 mcg-62.5 1 inh inhalation DAILY #60 ea 02/06/24 11/01/24 Rx mcg-25 mcg powder for inhalation (khicjomvlpd-pzwyvzspz-rfpqrnam) aspirin 81 mg tablet,delayed 81 mg PO DAILY 05/16/24 11/01/24 History release folic acid 1 mg tablet 1 mg PO DAILY 06/14/24 11/01/24 History mecobalamin (vitamin B12) 500 mcg 500 mcg PO DAILY 06/14/24 11/01/24 History chewable tablet multivitamin (Daily Multi-Vitamin 1 tablet PO DAILY 10/22/24 11/01/24 History tablet) Allergies Allergy/AdvReac Type Severity Reaction Status Date / Time mercury (elemental) Allergy Unknown Verified 11/01/24 18:00 Iodine and Iodide Containing AdvReac Rash Verified 11/01/24 18:00 Produc Vital Signs Vital Signs - 24 hr 11/01/24 09:26 11/01/24 09:45 11/01/24 11:31 Temperature 97.2 F L Pulse Rate 122 H 97 94 Respiratory Rate 26 H 30 H 18 Blood Pressure 113/79 121/71 Pulse Oximetry 100 97 Oxygen Delivery Oxygen Flow Rate 11/01/24 11:50 11/01/24 12:02 11/01/24 12:43 Temperature Pulse Rate 88 86 Respiratory Rate 19 21 H 22 H Blood Pressure Pulse Oximetry 96 93 Oxygen Delivery Oxygen Flow Rate 11/01/24 12:50 11/01/24 14:00 11/01/24 20:20 Temperature 96.8 F L Pulse Rate 87 78 Respiratory Rate 16 16 Blood Pressure 117/72 130/66 Pulse Oximetry 93 96 93 Oxygen Delivery Nasal Cannula Oxygen Flow Rate 2 11/01/24 21:15 11/02/24 06:00 Temperature 98.3 F 98.1 F Pulse Rate 90 95 Respiratory Rate 18 20 Blood Pressure 158/72 H 133/84 Pulse Oximetry 93 96 Oxygen Delivery Oxygen Flow Rate Exam 2 Const: General: cooperative, healthy appearing, comfortable, no acute distress and well developed Orientation/consciousness: oriented to person, oriented to place, oriented to time and patient oriented x3 HENMT: Head: normal to inspection, normocephalic and atraumatic Mouth: Yes Normal oral and palatal mucosa present and Yes moist mucous membranes Eyes: General: appearance normal, both eyes and all related structures C onjunctivae: conjunctivae normal Sclera: sclerae normal Pupils: Equal, round and reactive pupils present Neck: Neck: normal visual inspection Chest: Chest palpation & inspection: normal inspection of the chest Resp: Effort & Inspection: normal respiratory effort and able to speak in complete sentences Auscultation: clear to auscultation bilaterally Other: cough Cardio: Jugular venous distension: no JVD Rate: regular rate Rhythm: r egular rhythm Heart sounds: S1 normal heart sound present and S2 normal heart sound present GI: Inspection: normal to inspection GI Palp: Yes Soft to palpation, Yes Tenderness to palpation present (GI) (mild tenderness with palpation) and No Guarding due to palpation present (GI) Auscultation: normal bowel sounds R ectal Exam: deferred Skin: General skin exam: normal color and no rashes or lesions noted Neuro: General: oriented to person, oriented to place, oriented to time and patient oriented x3 Cranial nerves: Yes Equal, round and reactive pupils present Speech: normal speech Extrem: General: normal to inspection and no clubbing, cyanosis or edema Psych: Appearance: grossly normal and well kempt Affect: normal affect Results Labs 11/02/24 06:02 11/02/24 06:02 Labs: Short CBC 11/01/24 11/02/24 Range/Units 09:42 06:02 WBC 12.2 H 10.7 H (4.5-10.0) K/mm3 Hgb 15.3 H D 11.9 L D (12.0-15.0) g/dL Hct 45.5 36.6 L (37.0-47.0) % Plt Count 485 H D 378 H (150-375) k/mm3 BMP 11/01/24 11/02/24 09:42 06:02 Sodium 134 L 135 L Potassium 4.2 3.7 Chloride 95 L 103 Carbon Dioxide 28 25 BUN 13 D 13 Creatinine 1.25 H 0.87 Glucose 113 H 80 Calcium 10.4 H 8.7 Cardiac Enzymes 11/01/24 Range/Units 09:42 Troponin I < 0.012 (0.000-0.034) ng/mL Liver Function 11/01/24 Range/Units 09:42 Total Bilirubin 0.6 (0.2-1.3) mg/dL AST 48 H (14-36) U/L ALT 22 (6-35) U/L Alkaline Phosphatase 88 (38-126) U/L Albumin 4.3 (3.5-5.1) g/dL Urine 11/01/24 Range/Units 11:32 Urine Color Dark yellow (Yellow) Urine Appearance Cloudy H (Clear) Urine pH 5.0 (5.0-9.0) Ur Specific [place] 1.031 (1.001-1.035) Urine Protein 1+ H (Negative) mg/dL Urine Glucose (UA) Negative (Negative) mg/dL
[2024-11-02] MEDS: ASPIRIN 81 MG ENTERIC TABLET PO (08:52)
[2024-11-02] MEDS: ENOXAPARIN 40 MG/0.4 ML SYRINGE SUB-Q (08:52)
[2024-11-02] MEDS: FOLIC ACID 1 MG TABLET PO (08:52)
[2024-11-02] MEDS: MORPHINE SULFATE (*CRX) 4 MG/ML INJ IV PUSH (08:57)
[2024-11-02] MEDS: FLUTICASONE/UMECLIDIN/VILANTER 100-62.5-25 MCG ELLIPTA 1 PUFF INHALATION (09:15)
[2024-11-02 09:16] VITALS: O2SAT 93
--- NOTE | 2024-11-02 09:51 | P.PNGS_ITS ---
Progress Note: A&P Assessment and Plan (1) Colitis: Code(s): K52.9 - Noninfective gastroenteritis and colitis, unspecified Status: Acute Assessment and Plan: * GI consulted and recommending repeat colonoscopy, as her last one was in 2014. Scheduled for this Tuesday. Ok for regular diet today, with bowel prep to be started on Tuesday. Clear liquids tomorrow. Agree with GI consultation. Continue medical management with antibiotics and we will monitor with serial exams and labs. (2) Ileus: Code(s): K56.7 - Ileus, unspecified Status: Acute Assessment and Plan: * BM this morning. No nausea or vomiting, so NG tube will be deferred at this time. We will continue to monitor with serial abdominal exams and labs. (3) GOYO (acute kidney injury): Code(s): N17.9 - Acute kidney failure, unspecified Status: Acute Assessment and Plan: * Creatinine down to 0.87. Continue IV fluids and monitor labs. (4) Fatty liver: Code(s): K76.0 - Fatty (change of) liver, not elsewhere classified Status: Acute Assessment and Plan: * Follows with GI as an outpatient and diagnosed with hereditary hemochromatosis. (5) COPD (chronic obstructive pulmonary disease): Qualifiers: COPD type: unspecified COPD Qualified Code(s): J44.9 - Chronic obstructive pulmonary disease, unspecified Code(s): J44.9 - Chronic obstructive pulmonary disease, unspecified Status: Acute (6) Nicotine dependence: Qualifiers: Nicotine product type: cigarettes Substance use status: unspecified nicotine-induced disorder Qualified Code(s): F17.219 - Nicotine dependence, cigarettes, with unspecified nicotine-induced disorders Code(s): F17.200 - Nicotine dependence, unspecified, uncomplicated Status: Chronic Plan I have discussed the patient's case and plan of care with Dr. Barajas. Thank you for allowing us to see the patient in consultation and we will continue to follow along with you. Subjective Subjective Date/Time Seen: 11/02/24 09:51 Interval history: Patient notes some increased pain this morning, for which she was given morphine for. No nausea or vomiting. Asking if she can eat. WBC 10.7, down from 12.2. Afebrile. BM charted today. Exam GI: Inspection: distended and striae GI Palp: Yes Tenderness to palpation present (GI) Objective Data Vital Signs Vital Signs: Vital Signs - 24 hr 11/01/24 11:31 11/01/24 11:50 11/01/24 12:02 Temperature Pulse Rate 94 88 Respiratory Rate 18 19 21 H Blood Pressure Pulse Oximetry 96 Oxygen Delivery Oxygen Flow Rate 11/01/24 12:43 11/01/24 12:50 11/01/24 14:00 Temperature 96.8 F L Pulse Rate 86 87 78 Respiratory Rate 22 H 16 16 Blood Pressure 117/72 130/66 Pulse Oximetry 93 93 96 Oxygen Delivery Oxygen Flow Rate 11/01/24 20:20 11/01/24 21:15 11/02/24 06:00 Temperature 98.3 F 98.1 F Pulse Rate 90 95 Respiratory Rate 18 20 Blood Pressure 158/72 H 133/84 Pulse Oximetry 93 93 96 Oxygen Delivery Nasal Cannula Oxygen Flow Rate 2 11/02/24 09:16 Temperature Pulse Rate Respiratory Rate Blood Pressure Pulse Oximetry 93 Oxygen Delivery Room Air Oxygen Flow Rate Intake/Output Intake/Output: Intake & Output 10/30/24 10/31/24 11/01/24 11/02/24 23:59 23:59 23:59 23:59 Intake Total 1050 1050 Balance 1050 1050 Meds/Results Medications: Active Medications Generic Name Dose Route Start Last Admin Trade Name Freq PRN Reason Stop Dose Admin Acetaminophen 650 mg 11/01/24 17:53 Acetaminophen 325 Mg Tablet PO Q4H PRN Mild Pain (1-3) or Fever Hydrocodone Bitart/Acetaminophen 1 tab 11/01/24 17:53 Hydrocodone/Acetaminophen (*Crx) 5-325 Mg Tablet PO Q4H PRN Moderate Pain (4-6) Albuterol 2 puff 11/01/24 22:09 Albuterol Sulfate (*Sp) Aerosol 1 Puff INHALATION Q4-6H PRN shortness of breath or wheezing Aspirin 81 mg 11/02/24 09:00 11/02/24 08:52 Aspirin 81 Mg Enteric Tablet PO 81 mg DAILY BETTINA Administration Enoxaparin Sodium 40 mg 11/02/24 09:00 11/02/24 08:52 Enoxaparin 40 Mg/0.4 Ml Syringe SUB-Q 40 mg DAILY BETTINA Administration Fluticasone/Umeclidinium/Vilanterol 1 puff 11/02/24 09:00 11/02/24 09:15 Fluticasone/Umeclidin/Vilanter 100-62.5-25 Mcg Ellipta INHALATION 1 puff DAILY BETTINA Administration Folic Acid 1 mg 11/02/24 09:00 11/02/24 08:52 Folic Acid 1 Mg Tablet PO 1 mg DAILY BETTINA Administration Sodium Chloride 1,000 mls @ 125 mls/hr 11/01/24 12:35 11/02/24 03:22 Normal Saline Iv IV CONT 125 mls/hr .Q8H BETTINA Administration Piperacillin Sod/Tazobactam 50 mls @ 100 mls/hr 11/01/24 22:10 11/02/24 05:55 Sod 3.375 gm/ Sodium Chloride IVPB 100 mls/hr Q6HR BETTINA Administration Morphine Sulfate 4 mg 11/01/24 13:45 11/02/24 08:57 Morphine Sulfate (*Crx) 4 Mg/Ml Inj IV PUSH 4 mg Q4H PRN Administration Pain Rated 7-10 Ondansetron HCl 4 mg 11/01/24 18:05 Ondansetron Inj 4 Mg/2 Ml Vial IV PUSH Q4H PRN Nausea And Vomiting Radiology Results: ITS Impressions Chest X-Ray 11/01/24 10:18 Impression: 1: Progression of spiculated right upper lobe mass with associated calcifications. Cannot exclude malignancy. Recommend further evaluation with CT- guided biopsy or pet/CT scan. Abdomen/Pelvis CT 11/01/24 10:37 IMPRESSION: Multiple loops of dilated, fluid-filled, featureless small bowel with segments of mural thickening within portions of the the colon (which demonstrate diverticulosis). This constellation of findings suggest a possible ileus, rather than a discrete bowel obstruction. No fat plane between the uterus and the thickened loop of distal sigmoid colon with presacral induration in the left hemipelvis. Chest CT 11/01/24 11:15 IMPRESSION: 1. Mild to moderate emphysema with persistent tree-in-bud opacities in the dependent left lower lobe consistent with bronchiolitis. 2. No recent interval change in a 4.6 x 3.5 similar thick-walled centrally cavitary lesion at the right apex which is decreased in size and degree of wall thickening since 2022, likely scarring as sequela of chronic infection. Labs Labs: Laboratory Results - last 24 hr 0711/01/24 11/01/24 09:42 10:27 11:32 WBC 12.2 H RBC 4.76 Hgb 15.3 H D Hct 45.5 MCV 95.6 MCH 32.1 MCHC 33.6 RDW 15.5 H Plt Count 485 H D MPV 9.6 Immature Gran % (Auto) 0.7 H Neut % (Auto) 62.3 Lymph % (Auto) 21.7 [place] % (Auto) 11.6 H Eos % (Auto) 3.0 Baso % (Auto) 0.7 Lymph # (Auto) 2.64 [place] # (Auto) 1.4 H Eos # (Auto) 0.4 H Baso # (Auto) 0.1 Abs Immat Gran (auto) 0.09 H Absolute Neuts (auto) 7.6 H Absolute Nucleated RBC 0.000 Nucleated RBC % 0.0 PT 14.3 INR 1.1 APTT 30.3 Sodium 134 L Potassium 4.2 Chloride 95 L Carbon Dioxide 28 Anion Gap 11 BUN 13 D Creatinine 1.25 H Estim Creat Clear Calc 32 Estimated GFR 42 L Glucose 113 H Lactic Acid 1.9 Calcium 10.4 H Total Bilirubin 0.6 AST 48 H ALT 22 Alkaline Phosphatase 88 Troponin I < 0.012 C-Reactive Protein Total Protein 8.5 H Albumin 4.3 Lipase 62 Urine Color Dark yellow Urine Appearance Cloudy H Urine pH 5.0 Ur Specific [place] 1.031 Urine Protein 1+ H Urine Glucose (UA) Negative Urine Ketones Trace H Ur Blood (Man) Negative Urine Nitrate Negative Urine Bilirubin 1+ H Urine Urobilinogen 1.0 Add Ur Microanalysis Reviewed Leukocyte Esterase Rfl 1+ H Urine RBC 6-10 H Urine WBC 0-5 Ur Squamous Epith Cells Many H Urine Bacteria None seen Urine Casts >20 C. difficile (PCR) 11/01/24 11/01/24 11/02/24 12:24 18:38 06:02 WBC 10.7 H RBC 3.71 L Hgb 11.9 L D Hct 36.6 L MCV 98.7 MCH 32.1 MCHC 32.5 RDW 15.3 H Plt Count 378 H MPV 9.1 Immature Gran % (Auto) 0.7 H Neut % (Auto) 59.9 Lymph % (Auto) 23.6 [place] % (Auto) 9.9 H Eos % (Auto) 5.1 H Baso % (Auto) 0.8 Lymph # (Auto) 2.52 [place] # (Auto) 1.1 H Eos # (Auto) 0.5 H Baso # (Auto) 0.1 Abs Immat Gran (auto) 0.07 H Absolute Neuts (auto) 6.4 Absolute Nucleated RBC 0.000 Nucleated RBC % 0.0 PT 14.9 H INR 1.2 APTT 30.0 Sodium 135 L Potassium 3.7 Chloride 103 Carbon Dioxide 25 Anion Gap 7 BUN 13 Creatinine 0.87 Estim Creat Clear Calc 45 Estimated GFR > 60 Glucose 80 Lactic Acid 1.3 Calcium 8.7 Total Bilirubin AST ALT Alkaline Phosphatase Troponin I C-Reactive Protein 1.7 H Total Protein Albumin Lipase Urine Color Urine Appearance Urine pH Ur Specific [place] Urine Protein Urine Glucose (UA) Urine Ketones Ur Blood (Man) Urine Nitrate Urine Bilirubin Urine Urobilinogen Add Ur Microanalysis Leukocyte Esterase Rfl Urine RBC Urine WBC Ur Squamous Epith Cells Urine Bacteria Urine Casts C. difficile (PCR) Negative
--- NOTE | 2024-11-02 10:31 | P.PNIM_ITS ---
Progress Note: A&P Assessment and Plan (1) Ileus: Code(s): K56.7 - Ileus, unspecified Status: Acute Plan EDS Ileus: Code(s): K56.7 - Ileus, unspecified Status: Acute Assessment and Plan: Ileus seen on CT However patient is having frequent diarrhea C diff negative Pulse resulting from acute infective enteritis No surgical indication for general surgery evaluation Keep patient p.o. Start fluid resuscitation Acute infective gastroenteritis Patient failed outpatient treatment with oral antibiotics CT of the abdomen and pelvis show Multiple loops of dilated, fluid-filled, featureless small bowel with segments of mural thickening within portions of the the colon most likely ileus. C diff negative Pending stool culture Appreciate GI consultation, plans colonoscopy on Tuesday, Advance diet as tolerable, clear diet NPO after midnight 11/05tomorrow, GOYO Likely resulting from Acute dehydration: Code(s): E86.0 - Dehydration Status: Acute Assessment and Plan: Likely due to diarrhea and poor p.o. intake 1 L bolus given in the ED IVF at 125 Repeat BMP creatinine 0.87 down from 1.25 Leukocytosis: Code(s): D72.829 - Elevated white blood cell count, unspecified Status: Acute Assessment and Plan: Possible GI infection IV Zosyn Blood cultures pending No SSI Respiratory panel negative Subjective Date/time seen: 11/02/24 10:31 Interval history: I saw exam patient today. Patient denies abdomen pain, nausea vomiting. Patient also denies chest pain, palpitation, headache, focal weakness. Patient is on clear diet. Exam Narrative: GENERAL: Pleasant, in no acute distress. Well-nourished. - EYES: EOMI. Anicteric. - HENT: Moist mucous membranes. - LUNGS: Clear to auscultation bilateral ly, no wheezing, rhonchi, or rales. - CARDIOVASCULAR: Regular rate and rhyth m. No murmur. No JVD. - ABDOMEN: Soft, non-tender and non-dist ended. No palpable masses. Hypoactive bowel sounds - EXTREMITIES: No edema. Peripheral puls es 2+. Non-tender. - NEUROLOGIC: No focal neurological defi cits. CN II-XII grossly intact. - PSYCHIATRIC: Awake, Alert and oriented x 3. Appropriate mood and affect. - SKIN: No rashes or lesions. Warm. - LYMPH: No cervical lymphadenopathy. Objective Data Vital Signs Vital Signs: Vital Signs - 24 hr 11/01/24 11:31 11/01/24 11:50 11/01/24 12:02 Temperature Pulse Rate 94 88 Respiratory Rate 18 19 21 H Blood Pressure Pulse Oximetry 96 Oxygen Delivery Oxygen Flow Rate 11/01/24 12:43 11/01/24 12:50 11/01/24 14:00 Temperature 96.8 F L Pulse Rate 86 87 78 Respiratory Rate 22 H 16 16 Blood Pressure 117/72 130/66 Pulse Oximetry 93 93 96 Oxygen Delivery Oxygen Flow Rate 11/01/24 20:20 11/01/24 21:15 11/02/24 06:00 Temperature 98.3 F 98.1 F Pulse Rate 90 95 Respiratory Rate 18 20 Blood Pressure 158/72 H 133/84 Pulse Oximetry 93 93 96 Oxygen Delivery Nasal Cannula Oxygen Flow Rate 2 11/02/24 09:16 Temperature Pulse Rate Respiratory Rate Blood Pressure Pulse Oximetry 93 Oxygen Delivery Room Air Oxygen Flow Rate Intake/Output Intake/Output: Intake & Output 10/30/24 10/31/24 11/01/24 11/02/24 23:59 23:59 23:59 23:59 Intake Total 1050 1050 Balance 1050 1050 Meds/Results Medications: Active Medications Generic Name Dose Route Start Last Admin Trade Name Freq PRN Reason Stop Dose Admin Acetaminophen 650 mg 11/01/24 17:53 Acetaminophen 325 Mg Tablet PO Q4H PRN Mild Pain (1-3) or Fever Hydrocodone Bitart/Acetaminophen 1 tab 11/01/24 17:53 Hydrocodone/Acetaminophen (*Crx) 5-325 Mg Tablet PO Q4H PRN Moderate Pain (4-6) Albuterol 2 puff 11/01/24 22:09 Albuterol Sulfate (*Sp) Aerosol 1 Puff INHALATION Q4-6H PRN shortness of breath or wheezing Aspirin 81 mg 11/02/24 09:00 11/02/24 08:52 Aspirin 81 Mg Enteric Tablet PO 81 mg DAILY [facility] Administration Bisacodyl 10 mg 11/04/24 15:00 Bisacodyl 5 Mg Tablet Ec PO 11/04/24 21:01 1500,2100 [facility] Enoxaparin Sodium 40 mg 11/02/24 09:00 11/02/24 08:52 Enoxaparin 40 Mg/0.4 Ml Syringe SUB-Q 40 mg DAILY [facility] Administration Fluticasone/Umeclidinium/Vilanterol 1 puff 11/02/24 09:00 11/02/24 09:15 Fluticasone/Umeclidin/Vilanter 100-62.5-25 Mcg Ellipta INHALATION 1 puff DAILY [facility] Administration Folic Acid 1 mg 11/02/24 09:00 11/02/24 08:52 Folic Acid 1 Mg Tablet PO 1 mg DAILY [facility] Administration Sodium Chloride 1,000 mls @ 125 mls/hr 11/01/24 12:35 11/02/24 03:22 Normal Saline Iv IV CONT 125 mls/hr .Q8H [facility] Administration Piperacillin Sod/Tazobactam 50 mls @ 100 mls/hr 11/01/24 22:10 11/02/24 05:55 Sod 3.375 gm/ Sodium Chloride IVPB 100 mls/hr Q6HR [facility] Administration Magnesium Citrate 180 ml 11/04/24 22:00 Magnesium Citrate 300 Ml Btl PO 11/04/24 22:01 ONCE ONE Morphine Sulfate 4 mg 11/01/24 13:45 11/02/24 08:57 Morphine Sulfate (*Crx) 4 Mg/Ml Inj IV PUSH 4 mg Q4H PRN Administration Pain Rated 7-10 Ondansetron HCl 4 mg 11/01/24 18:05 Ondansetron Inj 4 Mg/2 Ml Vial IV PUSH Q4H PRN Nausea And Vomiting Polyethylene Glycol 238 gm 11/04/24 11:00 Polyethylene Glycol 3350 238 Gm Bottle PO 11/04/24 11:01 ONCE ONE Radiology Results: ITS Impressions Chest X-Ray 11/01/24 10:18 Impression: 1: Progression of spiculated right upper lobe mass with associated calcifications. Cannot exclude malignancy. Recommend further evaluation with CT- guided biopsy or pet/CT scan. Abdomen/Pelvis CT 11/01/24 10:37 IMPRESSION: Multiple loops of dilated, fluid-filled, featureless small bowel with segments of mural thickening within portions of the the colon (which demonstrate diverticulosis). This constellation of findings suggest a possible ileus, rather than a discrete bowel obstruction. No fat plane between the uterus and the thickened loop of distal sigmoid colon with presacral induration in the left hemipelvis. Chest CT 11/01/24 11:15 IMPRESSION: 1. Mild to moderate emphysema with persistent tree-in-bud opacities in the dependent left lower lobe consistent with bronchiolitis. 2. No recent interval change in a 4.6 x 3.5 similar thick-walled centrally cavitary lesion at the right apex which is decreased in size and degree of wall thickening since 2022, likely scarring as sequela of chronic infection. Labs Labs: Laboratory Results - last 24 hr 11/01/24 11/01/24 11/01/24 10:27 11:32 12:24 WBC RBC Hgb Hct MCV MCH MCHC RDW Plt Count MPV Immature Gran % (Auto) Neut % (Auto) Lymph % (Auto) [place] % (Auto) Eos % (Auto) Baso % (Auto) Lymph # (Auto) [place] # (Auto) Eos # (Auto) Baso # (Auto) Abs Immat Gran (auto) Absolute Neuts (auto) Absolute Nucleated RBC Nucleated RBC % PT 14.9 H INR 1.2 APTT 30.0 Sodium Potassium Chloride Carbon Dioxide Anion Gap BUN Creatinine Estim Creat Clear Calc Estimated GFR Glucose Lactic Acid 1.9 1.3 Calcium C-Reactive Protein 1.7 H Urine Color Dark yellow Urine Appearance Cloudy H Urine pH 5.0 Ur Specific [place] 1.031 Urine Protein 1+ H Urine Glucose (UA) Negative Urine Ketones Trace H Ur Blood (Man) Negative Urine Nitrate Negative Urine Bilirubin 1+ H Urine Urobilinogen 1.0 Add Ur Microanalysis Reviewed Leukocyte Esterase Rfl 1+ H Urine RBC 6-10 H Urine WBC 0-5 Ur Squamous Epith Cells Many H Urine Bacteria None seen Urine Casts >20 C. difficile (PCR) 11/01/24 11/02/24 18:38 06:02 WBC 10.7 H RBC 3.71 L Hgb 11.9 L D Hct 36.6 L MCV 98.7 MCH 32.1 MCHC 32.5 RDW 15.3 H Plt Count 378 H MPV 9.1 Immature Gran % (Auto) 0.7 H Neut % (Auto) 59.9 Lymph % (Auto) 23.6 [place] % (Auto) 9.9 H Eos % (Auto) 5.1 H Baso % (Auto) 0.8 Lymph # (Auto) 2.52 [place] # (Auto) 1.1 H Eos # (Auto) 0.5 H Baso # (Auto) 0.1 Abs Immat Gran (auto) 0.07 H Absolute Neuts (auto) 6.4 Absolute Nucleated RBC 0.000 Nucleated RBC % 0.0 PT INR APTT Sodium 135 L Potassium 3.7 Chloride 103 Carbon Dioxide 25 Anion Gap 7 BUN 13 Creatinine 0.87 Estim Creat Clear Calc 45 Estimated GFR > 60 Glucose 80 Lactic Acid Calcium 8.7 C-Reactive Protein Urine Color Urine Appearance Urine pH Ur Specific [place] Urine Protein Urine Glucose (UA) Urine Ketones Ur Blood (Man) Urine Nitrate Urine Bilirubin Urine Urobilinogen Add Ur Microanalysis Leukocyte Esterase Rfl Urine RBC Urine WBC Ur Squamous Epith Cells Urine Bacteria Urine Casts C. difficile (PCR) Negative
[2024-11-02 14:00] VITALS: BP 124/72; PULSE 78; RESP 16; TEMP 36.7; O2SAT 94
[2024-11-02] MEDS: HYDROcodone/acetaminophen (*CRX) 5-325 MG TABLET 1 TAB PO (17:16)
[2024-11-02 20:00] VITALS: PULSE 69; RESP 20; O2SAT 97
[2024-11-02 22:00] VITALS: BP 128/76; PULSE 69; RESP 20; TEMP 36.8; O2SAT 97
[2024-11-03] MEDS: PIPERACILLIN/TAZOBACTAM SOD 3.375 GM in SODIUM CHLORIDE 0.9% IV 50 ML 100 ML IVPB ×2 (00:02→06:36)
[2024-11-03] MEDS: HYDROcodone/acetaminophen (*CRX) 5-325 MG TABLET 1 TAB PO ×2 (00:08→12:41)
[2024-11-03] MEDS: SODIUM CHLORIDE 0.9% IV 1,000 ML 125 ML IV CONT (04:18)
[2024-11-03 06:00] VITALS: BP 141/75; PULSE 65; RESP 18; TEMP 36.4; O2SAT 100
[2024-11-03] MEDS: MORPHINE SULFATE (*CRX) 4 MG/ML INJ IV PUSH (07:44)
[2024-11-03] MEDS: ENOXAPARIN 40 MG/0.4 ML SYRINGE SUB-Q (08:38)
[2024-11-03] MEDS: ASPIRIN 81 MG ENTERIC TABLET PO (08:38)
[2024-11-03] MEDS: FOLIC ACID 1 MG TABLET PO (08:38)
--- NOTE | 2024-11-03 10:50 | P.PNIM_ITS ---
Progress Note: A&P Assessment and Plan (1) Ileus: Code(s): K56.7 - Ileus, unspecified Status: Acute Plan EDS Ileus: Code(s): K56.7 - Ileus, unspecified Status: Acute Assessment and Plan: Ileus seen on CT However patient is having frequent diarrhea C diff negative Pulse resulting from acute infective enteritis No surgical indication for general surgery evaluation Patient abdomen distension getting worse today, no bowel movement today. Patient was started clear diet, hold clear diet. Abdomen x-ray today showed persistent mildly dilated gas-filled loops of small bowel throughout the abdomen and pelvis which could represent small bowel obstruction or ileus. Keep patient p.o. Acute infective gastroenteritis Patient failed outpatient treatment with oral antibiotics CT of the abdomen and pelvis show Multiple loops of dilated, fluid-filled, featureless small bowel with segments of mural thickening within portions of the the colon most likely ileus. C diff negative Pending stool culture Appreciate GI consultation, plans colonoscopy on Tuesday, NPO after midnight 11/05tomorrow, GOYO Likely resulting from Acute dehydration: Code(s): E86.0 - Dehydration Status: Acute Assessment and Plan: Likely due to diarrhea and poor p.o. intake Repeat BMP creatinine 0.87 down from 1.25 Leukocytosis: Code(s): D72.829 - Elevated white blood cell count, unspecified Status: Acute Assessment and Plan: Possible GI infection Received IV Zosyn Blood cultures pending Respiratory panel negative Subjective Date/time seen: 11/03/24 10:50 Interval history: I saw exam patient today. Patient abdomen is distended today, has no bowel movement today., Patient denies abdomen pain, nausea vomiting. Patient is on clear diet. Exam Narrative: GENERAL: Pleasant, in no acute distress. Well-nourished. - EYES: EOMI. Anicteric. - HENT: Moist mucous membranes. - LUNGS: Clear to auscultation bilateral ly, no wheezing, rhonchi, or rales. - CARDIOVASCULAR: Regular rate and rhyth m. No murmur. No JVD. - ABDOMEN: Soft, non-tender and non-dist ended. No palpable masses. Hypoactive bowel sounds - EXTREMITIES: No edema. Peripheral puls es 2+. Non-tender. - NEUROLOGIC: No focal neurological defi cits. CN II-XII grossly intact. - PSYCHIATRIC: Awake, Alert and oriented x 3. Appropriate mood and affect. - SKIN: No rashes or lesions. Warm. - LYMPH: No cervical lymphadenopathy. Objective Data Vital Signs Vital Signs: Vital Signs - 24 hr 11/02/24 14:00 11/02/24 20:00 11/02/24 22:00 Temperature 98.0 F 98.2 F Pulse Rate 78 69 69 Respiratory Rate 16 20 20 Blood Pressure 124/72 128/76 Pulse Oximetry 94 97 97 Oxygen Delivery Room Air 11/03/24 06:00 11/03/24 08:45 Temperature 97.5 F L Pulse Rate 65 Respiratory Rate 18 Blood Pressure 141/75 H Pulse Oximetry 100 Oxygen Delivery Room Air Intake/Output Intake/Output: Intake & Output 10/31/24 11/01/24 11/02/24 11/03/24 23:59 23:59 23:59 23:59 Intake Total 1050 2895.8 1523.8 Balance 1050 2895.8 1523.8 Meds/Results Medications: Active Medications Generic Name Dose Route Start Last Admin Trade Name Freq PRN Reason Stop Dose Admin Acetaminophen 650 mg 11/01/24 17:53 Acetaminophen 325 Mg Tablet PO Q4H PRN Mild Pain (1-3) or Fever Hydrocodone Bitart/Acetaminophen 1 tab 11/01/24 17:53 11/03/24 00:08 Hydrocodone/Acetaminophen (*Crx) 5-325 Mg Tablet PO 1 tab Q4H PRN Administration Moderate Pain (4-6) Albuterol 2 puff 11/01/24 22:09 Albuterol Sulfate (*Sp) Aerosol 1 Puff INHALATION Q4-6H PRN shortness of breath or wheezing Aspirin 81 mg 11/02/24 09:00 11/03/24 08:38 Aspirin 81 Mg Enteric Tablet PO 81 mg DAILY [facility] Administration Bisacodyl 10 mg 11/04/24 15:00 Bisacodyl 5 Mg Tablet Ec PO 11/04/24 21:01 1500,2100 [facility] Enoxaparin Sodium 40 mg 11/02/24 09:00 11/03/24 08:38 Enoxaparin 40 Mg/0.4 Ml Syringe SUB-Q 40 mg DAILY [facility] Administration Fluticasone/Umeclidinium/Vilanterol 1 puff 11/02/24 09:00 11/03/24 07:40 Fluticasone/Umeclidin/Vilanter 100-62.5-25 Mcg Ellipta INHALATION Not Given DAILY [facility] Folic Acid 1 mg 11/02/24 09:00 11/03/24 08:38 Folic Acid 1 Mg Tablet PO 1 mg DAILY [facility] Administration Sodium Chloride 1,000 mls @ 125 mls/hr 11/01/24 12:35 11/03/24 04:18 Normal Saline Iv IV CONT 125 mls/hr .Q8H [facility] Administration Piperacillin Sod/Tazobactam 50 mls @ 100 mls/hr 11/01/24 22:10 11/03/24 06:36 Sod 3.375 gm/ Sodium Chloride IVPB 100 mls/hr Q6HR [facility] Administration Magnesium Citrate 180 ml 11/04/24 22:00 Magnesium Citrate 300 Ml Btl PO 11/04/24 22:01 ONCE ONE Morphine Sulfate 4 mg 11/01/24 13:45 11/03/24 07:44 Morphine Sulfate (*Crx) 4 Mg/Ml Inj IV PUSH 4 mg Q4H PRN Administration Pain Rated 7-10 Ondansetron HCl 4 mg 11/01/24 18:05 Ondansetron Inj 4 Mg/2 Ml Vial IV PUSH Q4H PRN Nausea And Vomiting Polyethylene Glycol 238 gm 11/04/24 11:00 Polyethylene Glycol 3350 238 Gm Bottle PO 11/04/24 11:01 ONCE ONE Radiology Results: ITS Impressions Chest X-Ray 11/01/24 10:18 Impression: 1: Progression of spiculated right upper lobe mass with associated calcifications. Cannot exclude malignancy. Recommend further evaluation with CT- guided biopsy or pet/CT scan. Abdomen/Pelvis CT 11/01/24 10:37 IMPRESSION: Multiple loops of dilated, fluid-filled, featureless small bowel with segments of mural thickening within portions of the the colon (which demonstrate diverticulosis). This constellation of findings suggest a possible ileus, rather than a discrete bowel obstruction. No fat plane between the uterus and the thickened loop of distal sigmoid colon with presacral induration in the left hemipelvis. Chest CT 11/01/24 11:15 IMPRESSION: 1. Mild to moderate emphysema with persistent tree-in-bud opacities in the dependent left lower lobe consistent with bronchiolitis. 2. No recent interval change in a 4.6 x 3.5 similar thick-walled centrally cavitary lesion at the right apex which is decreased in size and degree of wall thickening since 2022, likely scarring as sequela of chronic infection.
[2024-11-03 11:21] LABS: Hematocrit 35.0 % (37.0-47.0); Hemoglobin 11.5 g/dL (12.0-15.0); Immature Granulocyte Percent A 0.8 % (0-0.5); Lymphocytes Absolute Auto 2.28 K/mm3 (0.9-3.2); Mean Corpuscular HGB Conc 32.9 g/dl (32-36); Mean Corpuscular Hemoglobin 32.3 pg (26-34); Mean Corpuscular Volume 98.3 fl (80-100); Nucleated Red Blood Cells Absolute Auto 0.000 K/mm3 (0.0-0.012); Nucleated Red Blood Cells Perc 0.0 % (0.0-0.2); Platelet Count Result 389 k/mm3 (150-375); Red Blood Count 3.56 M/mm3 (4.2-5.4); White Blood Count 8.7 K/mm3 (4.5-10.0)
[2024-11-03 11:59] LABS: Anion Gap 5 mmol/L (4-12); Blood Urea Nitrogen 6 mg/dL (7-17); Calcium 9.2 mg/dL (8.4-10.2); Carbon Dioxide 30 mmol/L (22-30); Chloride 101 mmol/L (98-107); Estimated CRCL calculation 59 ml/min; Estimated Glomerular Filt Rate > 60; Glucose 89 mg/dL (65-110); Potassium 4.6 mmol/L (3.4-5.0); Sodium 136 mmol/L (137-145)
--- NOTE | 2024-11-03 13:18 | P.PN_ITS ---
Progress Note: A&P Assessment and Plan (1) Acute colitis: Code(s): K52.9 - Noninfective gastroenteritis and colitis, unspecified Status: Acute Assessment and Plan: Being treated medically with IV antibiotics. GI on board. They plan on colonoscopy on Tuesday. (2) Generalized abdominal discomfort: Code(s): R10.84 - Generalized abdominal pain Status: Acute Assessment and Plan: Patient more of a small bowel ileus type picture but seemed to be resolving. She was advanced to liquids yesterday. This morning she has more abdominal distension having more diffuse abdominal pain. The abdomen is certainly more distended on exam. Potassium level is normal greater than 4. No go ahead and get a obstructive series done today. She may have recurrent ileus. Keep her NPO for now. Subjective Date/time seen: 11/03/24 13:18 Interval history: Patient was doing well yesterday and advanced to liquid diet. Had a bowel movement yesterday. Today no bowel movement. She is complaining of nausea and worsening abdominal pain with abdominal distension. Potassium level is normal. White blood cell count is normal. Exam GI: Other: Abdomen is moderately distended. Mild diffuse tenderness. No generalized p eritoneal signs. Objective Data Vital Signs Vital Signs: Vital Signs - 24 hr 11/02/24 14:00 11/02/24 20:00 11/02/24 22:00 Temperature 36.7 C 36.8 C Pulse Rate 78 69 69 Respiratory Rate 16 20 20 Blood Pressure 124/72 128/76 Pulse Oximetry 94 97 97 Oxygen Delivery Room Air 11/03/24 06:00 11/03/24 08:45 Temperature 36.4 C L Pulse Rate 65 Respiratory Rate 18 Blood Pressure 141/75 H Pulse Oximetry 100 Oxygen Delivery Room Air Intake/Output Intake/Output: Intake & Output 10/31/24 11/01/24 11/02/24 11/03/24 23:59 23:59 23:59 23:59 Intake Total 1050 2895.8 1523.8 Balance 1050 2895.8 1523.8 Meds/Results Medications: Active Medications Generic Name Dose Route Start Last Admin Trade Name Freq PRN Reason Stop Dose Admin Acetaminophen 650 mg 11/01/24 17:53 Acetaminophen 325 Mg Tablet PO Q4H PRN Mild Pain (1-3) or Fever Hydrocodone Bitart/Acetaminophen 1 tab 11/01/24 17:53 11/03/24 12:41 Hydrocodone/Acetaminophen (*Crx) 5-325 Mg Tablet PO 1 tab Q4H PRN Administration Moderate Pain (4-6) Albuterol 2 puff 11/01/24 22:09 Albuterol Sulfate (*Sp) Aerosol 1 Puff INHALATION Q4-6H PRN shortness of breath or wheezing Amoxicillin/Clavulanate Potassium 1 tablet 11/03/24 21:00 Amoxicillin/Clavulanate K 875-125 Mg Tab PO Q12HR [facility] Aspirin 81 mg 11/02/24 09:00 11/03/24 08:38 Aspirin 81 Mg Enteric Tablet PO 81 mg DAILY [facility] Administration Bisacodyl 10 mg 11/04/24 15:00 Bisacodyl 5 Mg Tablet Ec PO 11/04/24 21:01 1500,2100 [facility] Enoxaparin Sodium 40 mg 11/02/24 09:00 11/03/24 08:38 Enoxaparin 40 Mg/0.4 Ml Syringe SUB-Q 40 mg DAILY [facility] Administration Fluticasone/Umeclidinium/Vilanterol 1 puff 11/02/24 09:00 11/03/24 07:40 Fluticasone/Umeclidin/Vilanter 100-62.5-25 Mcg Ellipta INHALATION Not Given DAILY [facility] Folic Acid 1 mg 11/02/24 09:00 11/03/24 08:38 Folic Acid 1 Mg Tablet PO 1 mg DAILY [facility] Administration Magnesium Citrate 180 ml 11/04/24 22:00 Magnesium Citrate 300 Ml Btl PO 11/04/24 22:01 ONCE ONE Morphine Sulfate 4 mg 11/01/24 13:45 11/03/24 07:44 Morphine Sulfate (*Crx) 4 Mg/Ml Inj IV PUSH 4 mg Q4H PRN Administration Pain Rated 7-10 Ondansetron HCl 4 mg 11/01/24 18:05 Ondansetron Inj 4 Mg/2 Ml Vial IV PUSH Q4H PRN Nausea And Vomiting Polyethylene Glycol 238 gm 11/04/24 11:00 Polyethylene Glycol 3350 238 Gm Bottle PO 11/04/24 11:01 ONCE ONE Radiology Results: ITS Impressions Chest X-Ray 11/01/24 10:18 Impression: 1: Progression of spiculated right upper lobe mass with associated calcifications. Cannot exclude malignancy. Recommend further evaluation with CT- guided biopsy or pet/CT scan. Abdomen/Pelvis CT 11/01/24 10:37 IMPRESSION: Multiple loops of dilated, fluid-filled, featureless small bowel with segments of mural thickening within portions of the the colon (which demonstrate diverticulosis). This constellation of findings suggest a possible ileus, rather than a discrete bowel obstruction. No fat plane between the uterus and the thickened loop of distal sigmoid colon with presacral induration in the left hemipelvis. Chest CT 11/01/24 11:15 IMPRESSION: 1. Mild to moderate emphysema with persistent tree-in-bud opacities in the dependent left lower lobe consistent with bronchiolitis. 2. No recent interval change in a 4.6 x 3.5 similar thick-walled centrally cavitary lesion at the right apex which is decreased in size and degree of wall thickening since 2022, likely scarring as sequela of chronic infection. Labs Labs: Laboratory Results - last 24 hr 11/03/24 11:06 WBC 8.7 RBC 3.56 L Hgb 11.5 L Hct 35.0 L MCV 98.3 MCH 32.3 MCHC 32.9 RDW 14.7 H Plt Count 389 H MPV 9.4 Immature Gran % (Auto) 0.8 H Neut % (Auto) 55.1 Lymph % (Auto) 26.3 [place] % (Auto) 10.3 H Eos % (Auto) 6.6 H Baso % (Auto) 0.9 Lymph # (Auto) 2.28 [place] # (Auto) 0.9 H Eos # (Auto) 0.6 H Baso # (Auto) 0.1 Abs Immat Gran (auto) 0.07 H Absolute Neuts (auto) 4.8 Absolute Nucleated RBC 0.000 Nucleated RBC % 0.0 Sodium 136 L Potassium 4.6 Chloride 101 Carbon Dioxide 30 Anion Gap 5 BUN 6 L D Creatinine 0.65 L Estim Creat Clear Calc 59 Estimated GFR > 60 Glucose 89 Calcium 9.2
[2024-11-03 14:00] VITALS: BP 175/88; PULSE 68; RESP 14; TEMP 36.4; O2SAT 94
--- NOTE | 2024-11-03 14:31 | P.PNGI_ITS ---
Progress Note: A&P Assessment and Plan (1) Ileus: Code(s): K56.7 - Ileus, unspecified Status: Acute Assessment and Plan: more distended today, XR pending per surgery npo for now will reassess tomorrow to see if would be able to tolerate bowel prep otherwise we will wait before we can do scopes (2) Generalized abdominal discomfort: Code(s): R10.84 - Generalized abdominal pain Status: Acute (3) Hereditary hemochromatosis: Code(s): E83.110 - Hereditary hemochromatosis Status: Acute (4) Cirrhosis: Code(s): K74.60 - Unspecified cirrhosis of liver Status: Acute Subjective Date/time seen: 11/03/24 14:31 Interval history: she had BM yesterday but today more bloated after had liquid diet, she is NPO again and today is not passing gas Review of Systems Review of Systems: All systems reviewed & are unremarkable except as noted in HPI and below Exam Const: General: no acute distress Other: uncomfortable because abdominal distension, she is sitting in bedside commode trying to urinate HENMT: Face/Nose/Sinus: Normal nares present Eyes: General: appearance normal, both eyes and all related structures Neck: Neck: supple Resp: Auscultation: clear to auscultation bilaterally Cardio: Rate: regular rate Rhythm: regular rhythm GI: Inspection: distended GI Palp: Yes Tenderness to palpation present (GI) (mild tender, no rebound) Skin: General skin exam: normal color Neuro: General: gait normal Speech: normal speech Extrem: General: normal to inspection Psych: Mental Status: mental status grossly normal Objective Data Vital Signs Vital Signs: Vital Signs - 24 hr 11/02/24 20:00 11/02/24 22:00 11/03/24 06:00 Temperature 98.2 F 97.5 F L Pulse Rate 69 69 65 Respiratory Rate 20 20 18 Blood Pressure 128/76 141/75 H Pulse Oximetry 97 97 100 Oxygen Delivery Room Air 11/03/24 08:45 Temperature Pulse Rate Respiratory Rate Blood Pressure Pulse Oximetry Oxygen Delivery Room Air Intake/Output Intake/Output: Intake & Output 10/31/24 11/01/24 11/02/24 11/03/24 23:59 23:59 23:59 23:59 Intake Total 1050 2895.8 1523.8 Balance 1050 2895.8 1523.8 Meds/Results Medications: Active Medications Generic Name Dose Route Start Last Admin Trade Name Freq PRN Reason Stop Dose Admin Acetaminophen 650 mg 11/01/24 17:53 Acetaminophen 325 Mg Tablet PO Q4H PRN Mild Pain (1-3) or Fever Hydrocodone Bitart/Acetaminophen 1 tab 11/01/24 17:53 11/03/24 12:41 Hydrocodone/Acetaminophen (*Crx) 5-325 Mg Tablet PO 1 tab Q4H PRN Administration Moderate Pain (4-6) Albuterol 2 puff 11/01/24 22:09 Albuterol Sulfate (*Sp) Aerosol 1 Puff INHALATION Q4-6H PRN shortness of breath or wheezing Aspirin 81 mg 11/02/24 09:00 11/03/24 08:38 Aspirin 81 Mg Enteric Tablet PO 81 mg DAILY BETTINA Administration Bisacodyl 10 mg 11/04/24 15:00 Bisacodyl 5 Mg Tablet Ec PO 11/04/24 21:01 1500,2100 [facility] Enoxaparin Sodium 40 mg 11/02/24 09:00 11/03/24 08:38 Enoxaparin 40 Mg/0.4 Ml Syringe SUB-Q 40 mg DAILY BETTINA Administration Fluticasone/Umeclidinium/Vilanterol 1 puff 11/02/24 09:00 11/03/24 07:40 Fluticasone/Umeclidin/Vilanter 100-62.5-25 Mcg Ellipta INHALATION Not Given DAILY BETTINA Folic Acid 1 mg 11/02/24 09:00 11/03/24 08:38 Folic Acid 1 Mg Tablet PO 1 mg DAILY BETTINA Administration Dextrose/Lactated Ringer's 1,000 mls @ 100 mls/hr 11/03/24 14:30 Dextrose 5%/Lactated Ringers IV CONT .Q10H BETTINA Magnesium Citrate 180 ml 11/04/24 22:00 Magnesium Citrate 300 Ml Btl PO 11/04/24 22:01 ONCE ONE Morphine Sulfate 4 mg 11/01/24 13:45 11/03/24 07:44 Morphine Sulfate (*Crx) 4 Mg/Ml Inj IV PUSH 4 mg Q4H PRN Administration Pain Rated 7-10 Ondansetron HCl 4 mg 11/01/24 18:05 Ondansetron Inj 4 Mg/2 Ml Vial IV PUSH Q4H PRN Nausea And Vomiting Polyethylene Glycol 238 gm 11/04/24 11:00 Polyethylene Glycol 3350 238 Gm Bottle PO 11/04/24 11:01 ONCE ONE Radiology Results: ITS Impressions Chest X-Ray 11/01/24 10:18 Impression: 1: Progression of spiculated right upper lobe mass with associated calcifications. Cannot exclude malignancy. Recommend further evaluation with CT- guided biopsy or pet/CT scan. Abdomen/Pelvis CT 11/01/24 10:37 IMPRESSION: Multiple loops of dilated, fluid-filled, featureless small bowel with segments of mural thickening within portions of the the colon (which demonstrate diverticulosis). This constellation of findings suggest a possible ileus, rather than a discrete bowel obstruction. No fat plane between the uterus and the thickened loop of distal sigmoid colon with presacral induration in the left hemipelvis. Chest CT 11/01/24 11:15 IMPRESSION: 1. Mild to moderate emphysema with persistent tree-in-bud opacities in the dependent left lower lobe consistent with bronchiolitis. 2. No recent interval change in a 4.6 x 3.5 similar thick-walled centrally cavitary lesion at the right apex which is decreased in size and degree of wall thickening since 2022, likely scarring as sequela of chronic infection. Abdomen X-Ray 11/03/24 14:01 IMPRESSION: 1. Persistent mildly dilated gas-filled loops of small bowel throughout the abdomen and pelvis which could represent small bowel obstruction or ileus. 2. Mild pulmonary edema in the lower lungs. Labs Labs: Laboratory Results - last 24 hr 11/03/24 11:06 WBC 8.7 RBC 3.56 L Hgb 11.5 L Hct 35.0 L MCV 98.3 MCH 32.3 MCHC 32.9 RDW 14.7 H Plt Count 389 H MPV 9.4 Immature Gran % (Auto) 0.8 H Neut % (Auto) 55.1 Lymph % (Auto) 26.3 [place] % (Auto) 10.3 H Eos % (Auto) 6.6 H Baso % (Auto) 0.9 Lymph # (Auto) 2.28 [place] # (Auto) 0.9 H Eos # (Auto) 0.6 H Baso # (Auto) 0.1 Abs Immat Gran (auto) 0.07 H Absolute Neuts (auto) 4.8 Absolute Nucleated RBC 0.000 Nucleated RBC % 0.0 Sodium 136 L Potassium 4.6 Chloride 101 Carbon Dioxide 30 Anion Gap 5 BUN 6 L D Creatinine 0.65 L Estim Creat Clear Calc 59 Estimated GFR > 60 Glucose 89 Calcium 9.2
--- NOTE | 2024-11-03 15:36 | PC.NURSE ---
I reviewed the License Pending Registered Nurse's documentation and agree with the findings.
[2024-11-03] MEDS: DEXTROSE 5%/LACTATED RINGERS 1,000 ML 100 ML IV CONT (19:17)
[2024-11-03 20:00] VITALS: PULSE 78; RESP 16; O2SAT 94
[2024-11-03 21:30] VITALS: BP 191/85; PULSE 77; RESP 16
[2024-11-03 22:00] VITALS: BP 168/94; PULSE 78; RESP 16
[2024-11-03] MEDS: ONDANSETRON INJ 4 MG/2 ML VIAL IV PUSH (22:35)
[2024-11-03] MEDS: MORPHINE SULFATE (*CRX) 2 MG/ML INJ IV PUSH (22:36)
--- NOTE | 2024-11-04 01:12 | PC.NURSE ---
BP been elevated, pt looks pale and bit yellow color skin, [employer] Mayda was notified, added CMP to labs. will keep monitoring pt.
[2024-11-04] MEDS: DEXTROSE 5%/LACTATED RINGERS 1,000 ML 100 ML IV CONT ×2 (04:43→13:10)
[2024-11-04 04:53] VITALS: BP 166/83; PULSE 74; RESP 16; TEMP 36.4; O2SAT 90
[2024-11-04 05:58] LABS: Hematocrit 37.0 % (37.0-47.0); Hemoglobin 12.1 g/dL (12.0-15.0); Immature Granulocyte Percent A 0.7 % (0-0.5); Lymphocytes Absolute Auto 2.15 K/mm3 (0.9-3.2); Mean Corpuscular HGB Conc 32.7 g/dl (32-36); Mean Corpuscular Hemoglobin 31.9 pg (26-34); Mean Corpuscular Volume 97.6 fl (80-100); Nucleated Red Blood Cells Absolute Auto 0.000 K/mm3 (0.0-0.012); Nucleated Red Blood Cells Perc 0.0 % (0.0-0.2); Platelet Count Result 430 k/mm3 (150-375); Red Blood Count 3.79 M/mm3 (4.2-5.4); White Blood Count 6.8 K/mm3 (4.5-10.0)
[2024-11-04 06:20] LABS: Alanine Aminotransferase 11 U/L (6-35); Albumin Level 2.9 g/dL (3.5-5.1); Alkaline Phosphatase 60 U/L (38-126); Anion Gap 3 mmol/L (4-12); Aspartate Amino Transferase 28 U/L (14-36); Bilirubin,Total 0.2 mg/dL (0.2-1.3); Blood Urea Nitrogen 3 mg/dL (7-17); Calcium 8.9 mg/dL (8.4-10.2); Carbon Dioxide 31 mmol/L (22-30); Chloride 99 mmol/L (98-107); Estimated CRCL calculation 65 ml/min; Estimated Glomerular Filt Rate > 60; Glucose 95 mg/dL (65-110); Potassium 3.4 mmol/L (3.4-5.0); Sodium 133 mmol/L (137-145); Total Protein 5.7 g/dL (6.3-8.2)
[2024-11-04] MEDS: ENOXAPARIN 40 MG/0.4 ML SYRINGE SUB-Q (08:24)
[2024-11-04] MEDS: MORPHINE SULFATE (*CRX) 4 MG/ML INJ IV PUSH ×2 (09:24→18:21)
--- NOTE | 2024-11-04 12:27 | PC.NURSE ---
I reviewed the License Pending Nurse's documentation and agree with the findings.
--- NOTE | 2024-11-04 12:54 | P.PN_ITS ---
Progress Note: A&P Assessment and Plan (1) Ileus: Code(s): K56.7 - Ileus, unspecified Status: Acute Assessment and Plan: Appears she has recurrent ileus. Nasogastric tube was placed yesterday for GI decompression. She has started passing a bit of flatus today. Potassium was low at 3.4 this morning. We will go ahead replace potassium IV and try to keep her potassium level about 4.0. Continue NG tube to low continuous suction for now. (2) Acute colitis: Code(s): K52.9 - Noninfective gastroenteritis and colitis, unspecified Status: Acute Assessment and Plan: Continue IV antibiotics for colitis. GI was planning on performing colonoscopy tomorrow however given the inability to prep her colon with recurrent ileus that will have to be deferred for now. Subjective Date/time seen: 11/04/24 12:54 Interval history: Patient started having worsening abdominal distention yesterday and KUB was ordered. This showed an multiple loops of small bowel without obvious transition point or air-fluid levels. Appears she probably has a recurrent ileus. Therefore she could not be prepped for planned colonoscopy tomorrow. Na sogastric tube was placed yesterday and she feels better with GI decompression. She states she is passing small amount of flatus today. No bowel movements. White blood cell count is normal. Afebrile in no tachycardia. No abdominal pain today. Exam GI: Other: Abdomen is still mildly distended but less so than yesterday. It is nontender. Some bowel sounds are noted. Objective Data Vital Signs Vital Signs: Vital Signs - 24 hr 11/03/24 14:00 11/03/24 20:00 11/03/24 21:30 Temperature 36.4 C L Pulse Rate 68 78 77 Respiratory Rate 14 16 16 Blood Pressure 175/88 H 191/85 H Pulse Oximetry 94 94 Oxygen Delivery Room Air 11/03/24 22:00 11/04/24 04:53 11/04/24 08:45 Temperature 36.4 C Pulse Rate 78 74 Respiratory Rate 16 16 Blood Pressure 168/94 H 166/83 H Pulse Oximetry 90 Oxygen Delivery Room Air Intake/Output Intake/Output: Intake & Output 11/01/24 11/02/24 11/03/24 11/04/24 23:59 23:59 23:59 23:59 Intake Total 1050 2895.8 1523.8 943.3 Output Total 300 Balance 1050 2895.8 1523.8 643.3 Meds/Results Medications: Active Medications Generic Name Dose Route Start Last Admin Trade Name Freq PRN Reason Stop Dose Admin Acetaminophen 650 mg 11/01/24 17:53 Acetaminophen 325 Mg Tablet PO Q4H PRN Mild Pain (1-3) or Fever Hydrocodone Bitart/Acetaminophen 1 tab 11/01/24 17:53 11/03/24 12:41 Hydrocodone/Acetaminophen (*Crx) 5-325 Mg Tablet PO 1 tab Q4H PRN Administration Moderate Pain (4-6) Albuterol 2 puff 11/01/24 22:09 Albuterol Sulfate (*Sp) Aerosol 1 Puff INHALATION Q4-6H PRN shortness of breath or wheezing Aspirin 81 mg 11/02/24 09:00 11/03/24 08:38 Aspirin 81 Mg Enteric Tablet PO 81 mg DAILY BETTINA Administration Enoxaparin Sodium 40 mg 11/02/24 09:00 11/04/24 08:24 Enoxaparin 40 Mg/0.4 Ml Syringe SUB-Q 40 mg DAILY BETTINA Administration Fluticasone/Umeclidinium/Vilanterol 1 puff 11/02/24 09:00 11/04/24 07:35 Fluticasone/Umeclidin/Vilanter 100-62.5-25 Mcg Ellipta INHALATION Not Given DAILY BETTINA Folic Acid 1 mg 11/02/24 09:00 11/03/24 08:38 Folic Acid 1 Mg Tablet PO 1 mg DAILY BETTINA Administration Dextrose/Lactated Ringer's 1,000 mls @ 100 mls/hr 11/03/24 14:30 11/04/24 04:43 Dextrose 5%/Lactated Ringers IV CONT 100 mls/hr .Q10H BETTINA Administration Potassium Chloride 40 meq/ 520 mls @ 130 mls/hr 11/04/24 12:49 Sodium Chloride IVPB 11/04/24 16:48 ONCE ONE Morphine Sulfate 4 mg 11/01/24 13:45 11/04/24 09:24 Morphine Sulfate (*Crx) 4 Mg/Ml Inj IV PUSH 4 mg Q4H PRN Administration Pain Rated 7-10 Morphine Sulfate 2 mg 11/03/24 18:37 11/03/24 22:36 Morphine Sulfate (*Crx) 2 Mg/Ml Inj IV PUSH 2 mg Q3H PRN Administration Pain Rated 4-6 Ondansetron HCl 4 mg 11/01/24 18:05 11/03/24 22:35 Ondansetron Inj 4 Mg/2 Ml Vial IV PUSH 4 mg Q4H PRN Administration Nausea And Vomiting Phenol 1 spray 11/04/24 11:58 Phenol/Sod Pheno [place] (*Bkc) MUCOUS MEM PRN PRN Sore Throat Radiology Results: ITS Impressions Chest X-Ray 11/01/24 10:18 Impression: 1: Progression of spiculated right upper lobe mass with associated calcifications. Cannot exclude malignancy. Recommend further evaluation with CT- guided biopsy or pet/CT scan. Abdomen/Pelvis CT 11/01/24 10:37 IMPRESSION: Multiple loops of dilated, fluid-filled, featureless small bowel with segments of mural thickening within portions of the the colon (which demonstrate diverticulosis). This constellation of findings suggest a possible ileus, rather than a discrete bowel obstruction. No fat plane between the uterus and the thickened loop of distal sigmoid colon with presacral induration in the left hemipelvis. Chest CT 11/01/24 11:15 IMPRESSION: 1. Mild to moderate emphysema with persistent tree-in-bud opacities in the d ependent left lower lobe consistent with bronchiolitis. 2. No recent interval change in a 4.6 x 3.5 similar thick-walled centrally cavitary lesion at the right apex which is decreased in size and degree of wall thickening since 2022, likely scarring as sequela of chronic infection. Abdomen X-Ray 11/03/24 19:36 IMPRESSION: Shallow positioned NG tube, consider advancing 4 cm. Labs Labs: Laboratory Results - last 24 hr 11/04/24 05:38 WBC 6.8 RBC 3.79 L Hgb 12.1 Hct 37.0 MCV 97.6 MCH 31.9 MCHC 32.7 RDW 14.6 H Plt Count 430 H MPV 9.2 Immature Gran % (Auto) 0.7 H Neut % (Auto) 50.4 Lymph % (Auto) 31.6 [place] % (Auto) 9.7 H Eos % (Auto) 6.9 H Baso % (Auto) 0.7 Lymph # (Auto) 2.15 [place] # (Auto) 0.7 H Eos # (Auto) 0.5 H Baso # (Auto) 0.1 Abs Immat Gran (auto) 0.05 H Absolute Neuts (auto) 3.4 Absolute Nucleated RBC 0.000 Nucleated RBC % 0.0 Sodium 133 L Potassium 3.4 Chloride 99 Carbon Dioxide 31 H Anion Gap 3 L BUN 3 L Creatinine 0.59 L Estim Creat Clear Calc 65 Estimated GFR > 60 Glucose 95 Calcium 8.9 Total Bilirubin 0.2 AST 28 ALT 11 Alkaline Phosphatase 60 Total Protein 5.7 L Albumin 2.9 L
[2024-11-04] MEDS: PHENOL/SOD PHENO SPRAY CHERRY (*BKC) 1 SPRAY MUCOUS MEM (13:37)
--- NOTE | 2024-11-04 13:49 | WPDGIPROGNO ---
Progress Note: A&P Assessment and Plan (1) Ileus: Code(s): K56.7 - Ileus, unspecified Status: Acute Assessment and Plan: overall better since NGT was placed yesterday recurrent ileus, also possible colitis cancel colonoscopy for now until SBO/ileus resolves continue medical management surgery on board (2) Generalized abdominal discomfort: Code(s): R10.84 - Generalized abdominal pain Status: Acute Assessment and Plan: better with ngt (3) Hereditary hemochromatosis: Code(s): E83.110 - Hereditary hemochromatosis Status: Acute (4) Cirrhosis: Code(s): K74.60 - Unspecified cirrhosis of liver Status: Acute Subjective Date/time seen: 11/04/24 13:49 Interval history: NGT was placed yesterday because had N/V with more distension, feeling better since then and now is passing gas, no more nausea but NGT in position. Review of Systems Review of Systems: All systems reviewed & are unremarkable except as noted in HPI and below Exam Const: General: no acute distress Other: more comfortable today HENMT: Other: NGT in place Eyes: General: appearance normal, both eyes and all related structures Neck: Neck: supple Resp: Auscultation: clear to auscultation bilaterally Cardio: Rate: regular rate Rhythm: regular rhythm GI: Inspection: distended GI Palp: Yes Tenderness to palpation present (GI) (less tender, no rebound) Skin: General skin exam: normal color Neuro: Speech: normal speech Motor exam (neuro): 5/5 motor strength present throughout Extrem: General: normal to inspection Psych: Mental Status: mental status grossly normal Objective Data Vital Signs Vital Signs: Vital Signs - 24 hr 11/03/24 14:00 11/03/24 20:00 11/03/24 21:30 Temperature 97.5 F L Pulse Rate 68 78 77 Respiratory Rate 14 16 16 Blood Pressure 175/88 H 191/85 H Pulse Oximetry 94 94 Oxygen Delivery Room Air 11/03/24 22:00 11/04/24 04:53 11/04/24 08:45 Temperature 97.6 F Pulse Rate 78 74 Respiratory Rate 16 16 Blood Pressure 168/94 H 166/83 H Pulse Oximetry 90 Oxygen Delivery Room Air Intake/Output Intake/Output: Intake & Output 11/01/24 11/02/24 11/03/2425 23:59 23:59 23:59 23:59 Intake Total 1050 2895.8 1523.8 1788.3 Output Total 300 Balance 1050 2895.8 1523.8 1488.3 Meds/Results Medications: Active Medications Generic Name Dose Route Start Last Admin Trade Name Freq PRN Reason Stop Dose Admin Acetaminophen 650 mg 11/01/24 17:53 Acetaminophen 325 Mg Tablet PO Q4H PRN Mild Pain (1-3) or Fever Hydrocodone Bitart/Acetaminophen 1 tab 11/01/24 17:53 11/03/24 12:41 Hydrocodone/Acetaminophen (*Crx) 5-325 Mg Tablet PO 1 tab Q4H PRN Administration Moderate Pain (4-6) Albuterol 2 puff 11/01/24 22:09 Albuterol Sulfate (*Sp) Aerosol 1 Puff INHALATION Q4-6H PRN shortness of breath or wheezing Aspirin 81 mg 11/02/24 09:00 11/03/24 08:38 Aspirin 81 Mg Enteric Tablet PO 81 mg DAILY BETTINA Administration Enoxaparin Sodium 40 mg 11/02/24 09:00 11/04/24 08:24 Enoxaparin 40 Mg/0.4 Ml Syringe SUB-Q 40 mg DAILY BETTINA Administration Fluticasone/Umeclidinium/Vilanterol 1 puff 11/02/24 09:00 11/04/24 07:35 Fluticasone/Umeclidin/Vilanter 100-62.5-25 Mcg Ellipta INHALATION Not Given DAILY BETTINA Folic Acid 1 mg 11/02/24 09:00 11/03/24 08:38 Folic Acid 1 Mg Tablet PO 1 mg DAILY BETTINA Administration Dextrose/Lactated Ringer's 1,000 mls @ 100 mls/hr 11/03/24 14:30 11/04/24 13:10 Dextrose 5%/Lactated Ringers IV CONT 100 mls/hr .Q10H BETTINA Administration Potassium Chloride 40 meq/ 520 mls @ 130 mls/hr 11/04/24 12:49 Sodium Chloride IVPB 11/04/24 16:48 ONCE ONE Morphine Sulfate 4 mg 11/01/24 13:45 11/04/24 09:24 Morphine Sulfate (*Crx) 4 Mg/Ml Inj IV PUSH 4 mg Q4H PRN Administration Pain Rated 7-10 Morphine Sulfate 2 mg 11/03/24 18:37 11/03/24 22:36 Morphine Sulfate (*Crx) 2 Mg/Ml Inj IV PUSH 2 mg Q3H PRN Administration Pain Rated 4-6 Ondansetron HCl 4 mg 11/01/24 18:05 11/03/24 22:35 Ondansetron Inj 4 Mg/2 Ml Vial IV PUSH 4 mg Q4H PRN Administration Nausea And Vomiting Phenol 1 spray 11/04/24 11:58 11/04/24 13:37 Phenol/Sod Pheno [place] Garcia (*Bkc) MUCOUS MEM 1 spray PRN PRN Administration Sore Throat Radiology Results: ITS Impressions Chest X-Ray 11/01/24 10:18 Impression: 1: Progression of spiculated right upper lobe mass with associated calcifications. Cannot exclude malignancy. Recommend further evaluation with CT-guided biopsy or pet/CT scan. Abdomen/Pelvis CT 11/01/24 10:37 IMPRESSION: Multiple loops of dilated, fluid-filled, featureless small bowel with segments of mural thickening within portions of the the colon (which demonstrate diverticulosis). This constellation of findings suggest a possible ileus, rather than a discrete bowel obstruction. No fat plane between the uterus and the thickened loop of distal sigmoid colon with presacral induration in the left hemipelvis. Chest CT 11/01/24 11:15 IMPRESSION: 1. Mild to moderate emphysema with persistent tree-in-bud opacities in the dependent left lower lobe consistent with bronchiolitis. 2. No recent interval change in a 4.6 x 3.5 similar thick-walled centrally cavitary lesion at the right apex which is decreased in size and degree of wall thickening since 2022, likely scarring as sequela of chronic infection. Abdomen X-Ray 11/03/24 19:36 IMPRESSION: Shallow positioned NG tube, consider advancing 4 cm. Labs Labs: Laboratory Results - last 24 hr 11/04/24 05:38 WBC 6.8 RBC 3.79 L Hgb 12.1 Hct 37.0 MCV 97.6 MCH 31.9 MCHC 32.7 RDW 14.6 H Plt Count 430 H MPV 9.2 Immature Gran % (Auto) 0.7 H Neut % (Auto) 50.4 Lymph % (Auto) 31.6 [place] % (Auto) 9.7 H Eos % (Auto) 6.9 H Baso % (Auto) 0.7 Lymph # (Auto) 2.15 [place] # (Auto) 0.7 H Eos # (Auto) 0.5 H Baso # (Auto) 0.1 Abs Immat Gran (auto) 0.05 H Absolute Neuts (auto) 3.4 Absolute Nucleated RBC 0.000 Nucleated RBC % 0.0 Sodium 133 L Potassium 3.4 Chloride 99 Carbon Dioxide 31 H Anion Gap 3 L BUN 3 L Creatinine 0.59 L Estim Creat Clear Calc 65 Estimated GFR > 60 Glucose 95 Calcium 8.9 Total Bilirubin 0.2 AST 28 ALT 11 Alkaline Phosphatase 60 Total Protein 5.7 L Albumin 2.9 L
[2024-11-04 14:00] VITALS: BP 188/84; PULSE 77; RESP 16; TEMP 36.4; O2SAT 97
[2024-11-04] MEDS: POTASSIUM CHLORIDE INJ 40 MEQ in SODIUM CHLORIDE 0.9% IV 500 ML 130 MEQ IVPB (14:36)
--- NOTE | 2024-11-04 15:24 | P.PNIM_ITS ---
Progress Note: A&P Assessment and Plan (1) Ileus: Code(s): K56.7 - Ileus, unspecified Status: Acute (2) GOYO (acute kidney injury): Code(s): N17.9 - Acute kidney failure, unspecified Status: Acute (3) Leukocytosis: Code(s): D72.829 - Elevated white blood cell count, unspecified Status: Acute Plan 74-year-old female with history of hereditary hemochromatosis, cirrhosis, COPD, prior alcohol use disorder, history of bowel resection, hypertension presents to [facility] ER on 11/01/2024 with complaint of abdominal pain. She has been having loose bowel movements and nausea. She was just discharged from [facility] on 10/27/2024 with colitis, bowel obstruction, pneumonia, UTI. ER workup revealed leukocytosis, serum creatinine 1.25, contaminated urinalysis, CT abdomen pelvis reveals multiple loops of dilated fluid-filled featureless small bowel with segments of mural thickening within portions of the colon, suggestive of ileus. Chest CT demonstrating moderate emphysema with persistent tree-in-bud opacities in the dependent left lower lobe consistent with bronchiolitis. Chronic cavitary lesion at right apex peer She was given IV fluids and Zosyn. C diff was negative. ---- NG tube placed on 11/03/2024 for GI decompression. She is passing flatus. Potassium replaced with goal greater than 4. NG tube at low continuous suction. Currently on Zosyn. Follow-up urine cultures. Follow-up blood cultures. Chloraseptic spray for sore throat. Uncontrolled blood pressure. Give hydralazine 5 mg IV x1 and 5 mg IV q.8 hours p.r.n. for SBP greater than 180 thereafter. Patient wishes to be full code. Continue SCDs. D5 lactated Ringer's at 100 cc/hour. Patient received Lovenox 40 mg subQ on 11/04/2024, since has been placed on hold. Subjective Date/time seen: 11/04/24 15:24 Interval history: No acute overnight events. Patient is passing flatness but no bowel movement. She denies abdominal pain nausea or vomiting. Complains of sore throat. Review of Systems Review of Systems: All systems reviewed & are unremarkable except as noted in HPI and below (Subjective) Exam Const: General: comfortable and no acute distress Other: A&O x3 Eyes: Pupils: Equal, round and reactive pupils present Neck: Neck: supple Resp: Effort & Inspection: normal respiratory effort Auscultation: clear to auscultation bilaterally Cardio: Rate: regular rate Rhythm: regular rhythm GI: Other: Slight distension, but soft. No tenderness to palpations. Neuro: Motor exam (neuro): 5/5 motor strength present throughout Extrem: General: no edema Objective Data Vital Signs Vital Signs: Vital Signs - 24 hr 11/03/24 20:00 11/03/24 21:30 11/03/24 22:00 Temperature Pulse Rate 78 77 78 Respiratory Rate 16 16 16 Blood Pressure 191/85 H 168/94 H Pulse Oximetry 94 Oxygen Delivery Room Air 11/04/24 04:53 11/04/24 08:45 11/04/24 14:00 Temperature 97.6 F 97.5 F L Pulse Rate 74 77 Respiratory Rate 16 16 Blood Pressure 166/83 H 188/84 H Pulse Oximetry 90 97 Oxygen Delivery Room Air Intake/Output Intake/Output: Intake & Output 11/01/24 11/02/24 11/03/24 11/04/24 23:59 23:59 23:59 23:59 Intake Total 1050 2895.8 1523.8 1788.3 Output Total 300 Balance 1050 2895.8 1523.8 1488.3 Meds/Results Medications: Active Medications Generic Name Dose Route Start Last Admin Trade Name Freq PRN Reason Stop Dose Admin Acetaminophen 650 mg 11/01/24 17:53 Acetaminophen 325 Mg Tablet PO Q4H PRN Mild Pain (1-3) or Fever Hydrocodone Bitart/Acetaminophen 1 tab 11/01/24 17:53 11/03/24 12:41 Hydrocodone/Acetaminophen (*Crx) 5-325 Mg Tablet PO 1 tab Q4H PRN Administration Moderate Pain (4-6) Albuterol 2 puff 11/01/24 22:09 Albuterol Sulfate (*Sp) Aerosol 1 Puff INHALATION Q4-6H PRN shortness of breath or wheezing Aspirin 81 mg 11/02/24 09:00 11/03/24 08:38 Aspirin 81 Mg Enteric Tablet PO 81 mg DAILY BETTINA Administration Enoxaparin Sodium 40 mg 11/02/24 09:00 11/04/24 08:24 Enoxaparin 40 Mg/0.4 Ml Syringe SUB-Q 40 mg DAILY BETTINA Administration Fluticasone/Umeclidinium/Vilanterol 1 puff 11/02/24 09:00 11/04/24 07:35 Fluticasone/Umeclidin/Vilanter 100-62.5-25 Mcg Ellipta INHALATION Not Given DAILY BETTINA Folic Acid 1 mg 11/02/24 09:00 11/03/24 08:38 Folic Acid 1 Mg Tablet PO 1 mg DAILY BETTINA Administration Hydralazine HCl 5 mg 11/04/24 15:16 Hydralazine Hcl 20 Mg/Ml Vial IV PUSH Q8H PRN Blood Pressure - High Dextrose/Lactated Ringer's 1,000 mls @ 100 mls/hr 11/03/24 14:30 11/04/24 13:10 Dextrose 5%/Lactated Ringers IV CONT 100 mls/hr .Q10H BETTINA Administration Potassium Chloride 40 meq/ 520 mls @ 130 mls/hr 11/04/24 12:49 11/04/24 14:36 Sodium Chloride IVPB 11/04/24 16:48 130 mls/hr ONCE ONE Administration Morphine Sulfate 4 mg 11/01/24 13:45 11/04/24 09:24 Morphine Sulfate (*Crx) 4 Mg/Ml Inj IV PUSH 4 mg Q4H PRN Administration Pain Rated 7-10 Morphine Sulfate 2 mg 11/03/24 18:37 11/03/24 22:36 Morphine Sulfate (*Crx) 2 Mg/Ml Inj IV PUSH 2 mg Q3H PRN Administration Pain Rated 4-6 Ondansetron HCl 4 mg 11/01/24 18:05 11/03/24 22:35 Ondansetron Inj 4 Mg/2 Ml Vial IV PUSH 4 mg Q4H PRN Administration Nausea And Vomiting Phenol 1 spray 11/04/24 11:58 11/04/24 13:37 Phenol/Sod Pheno [place] Garcia (*Bkc) MUCOUS MEM 1 spray PRN PRN Administration Sore Throat Radiology Results: ITS Impressions Chest X-Ray 11/01/24 10:18 Impression: 1: Progression of spiculated right upper lobe mass with associated calcifications. Cannot exclude malignancy. Recommend further evaluation with CT- guided biopsy or pet/CT scan. Abdomen/Pelvis CT 11/01/24 10:37 IMPRESSION: Multiple loops of dilated, fluid-filled, featureless small bowel with segments of mural thickening within portions of the the colon (which demonstrate diverticulosis). This constellation of findings suggest a possible ileus, rather than a discrete bowel obstruction. No fat plane between the uterus and the thickened loop of distal sigmoid colon with presacral induration in the left hemipelvis. Chest CT 11/01/24 11:15 IMPRESSION: 1. Mild to moderate emphysema with persistent tree-in-bud opacities in the dependent left lower lobe consistent with bronchiolitis. 2. No recent interval change in a 4.6 x 3.5 similar thick-walled centrally cavitary lesion at the right apex which is decreased in size and degree of wall thickening since 2022, likely scarring as sequela of chronic infection. Abdomen X-Ray 11/03/24 19:36 IMPRESSION: Shallow positioned NG tube, consider advancing 4 cm. Labs Labs: Laboratory Results - last 24 hr 11/04/24 05:38 WBC 6.8 RBC 3.79 L Hgb 12.1 Hct 37.0 MCV 97.6 MCH 31.9 MCHC 32.7 RDW 14.6 H Plt Count 430 H MPV 9.2 Immature Gran % (Auto) 0.7 H Neut % (Auto) 50.4 Lymph % (Auto) 31.6 [place] % (Auto) 9.7 H Eos % (Auto) 6.9 H Baso % (Auto) 0.7 Lymph # (Auto) 2.15 [place] # (Auto) 0.7 H Eos # (Auto) 0.5 H Baso # (Auto) 0.1 Abs Immat Gran (auto) 0.05 H Absolute Neuts (auto) 3.4 Absolute Nucleated RBC 0.000 Nucleated RBC % 0.0 Sodium 133 L Potassium 3.4 Chloride 99 Carbon Dioxide 31 H Anion Gap 3 L BUN 3 L Creatinine 0.59 L Estim Creat Clear Calc 65 Estimated GFR > 60 Glucose 95 Calcium 8.9 Total Bilirubin 0.2 AST 28 ALT 11 Alkaline Phosphatase 60 Total Protein 5.7 L Albumin 2.9 L
[2024-11-04 17:15] VITALS: BP 176/84; PULSE 81
[2024-11-04 18:14] VITALS: BP 210/100
[2024-11-04 19:30] VITALS: BP 140/60
[2024-11-04 20:32] VITALS: BP 170/84; PULSE 63; RESP 16; TEMP 36.6; O2SAT 100
[2024-11-05 04:58] VITALS: BP 174/88; PULSE 76; RESP 20; TEMP 36.3; O2SAT 100
[2024-11-05] MEDS: DEXTROSE 5%/LACTATED RINGERS 1,000 ML 100 ML IV CONT ×2 (05:18→15:46)
[2024-11-05] MEDS: MORPHINE SULFATE (*CRX) 4 MG/ML INJ IV PUSH (05:21)
[2024-11-05 06:18] LABS: Hematocrit 37.4 % (37.0-47.0); Hemoglobin 12.2 g/dL (12.0-15.0); Immature Granulocyte Percent A 0.7 % (0-0.5); Lymphocytes Absolute Auto 1.88 K/mm3 (0.9-3.2); Mean Corpuscular HGB Conc 32.6 g/dl (32-36); Mean Corpuscular Hemoglobin 31.9 pg (26-34); Mean Corpuscular Volume 97.7 fl (80-100); Nucleated Red Blood Cells Absolute Auto 0.000 K/mm3 (0.0-0.012); Nucleated Red Blood Cells Perc 0.0 % (0.0-0.2); Platelet Count Result 425 k/mm3 (150-375); Red Blood Count 3.83 M/mm3 (4.2-5.4); White Blood Count 9.8 K/mm3 (4.5-10.0)
[2024-11-05 06:41] LABS: Anion Gap 5 mmol/L (4-12); Calcium 8.9 mg/dL (8.4-10.2); Carbon Dioxide 32 mmol/L (22-30); Chloride 99 mmol/L (98-107); Estimated CRCL calculation 66 ml/min; Estimated Glomerular Filt Rate > 60; Glucose 88 mg/dL (65-110); Magnesium 1.3 mg/dL (1.6-2.3); Potassium 3.7 mmol/L (3.4-5.0); Sodium 136 mmol/L (137-145)
[2024-11-05 06:42] LABS: Blood Urea Nitrogen < 2 mg/dL (7-17)
[2024-11-05 08:00] VITALS: O2SAT 94
[2024-11-05 08:16] VITALS: PULSE 73; RESP 20; O2SAT 94
[2024-11-05] MEDS: KCL 20 MEQ/SW 100 ML 100 ML 50 MEQ IVPB (09:02)
[2024-11-05] MEDS: MORPHINE SULFATE (*CRX) 2 MG/ML INJ IV PUSH ×2 (12:08→15:47)
--- NOTE | 2024-11-05 13:36 | PM.PNGS ---
Progress Note: A&P Assessment and Plan (1) Ileus: Code(s): K56.7 - Ileus, unspecified Status: Acute Assessment and Plan: NG tube with minimal output. Passing regular bowel movements. No nausea or vomiting. OK to remove NG tube. Will start on clear liquids. (2) Acute colitis: Code(s): K52.9 - Noninfective gastroenteritis and colitis, unspecified Status: Acute Assessment and Plan: Continue IV antibiotics for colitis. GI was planning on performing colonoscopy today, however given the inability to prep her colon with recurrent ileus it was deferred. May consider prepping her tomorrow for colonoscopy. Follow with GI note. Plan Discussed patient's case and plan of care with Dr. Perkins. Subjective Subjective Date/Time Seen: 11/05/24 13:36 Patient reports: flatus and bowel movement Interval history: Patient on just getting off commode. States that she has been having excessive bowel movements. No nausea or vomiting. Abdominal pain managed with morphine. Minimal output from NG tube. Exam Const: General: uncomfortable (due to bowel moovements.) Eyes: General: appearance normal, both eyes and all related structures Neck: Neck: supple Resp: Effort & Inspection: normal respiratory effort Cardio: Rate: regular rate GI: Inspection: distended GI Palp: Yes Soft to palpation, Yes Tenderness to palpation present (GI) (mild diffuse) and No Guarding due to palpation present (GI) Auscultation: normal bowel sounds : General: Yes bladder normal to palpation Skin: General skin exam: normal color and no rashes or lesions noted Extrem: General: normal to inspection Psych: Mental Status: mental status grossly normal Objective Data Vital Signs Vital Signs: Vital Signs - 24 hr 11/04/24 14:00 11/04/24 17:15 11/04/24 18:14 Temperature 97.5 F L Pulse Rate 77 81 Respiratory Rate 16 Blood Pressure 188/84 H 176/84 H 210/100 H Pulse Oximetry 97 Oxygen Delivery 11/04/24 19:30 11/04/24 20:00 11/04/24 20:32 Temperature 97.9 F Pulse Rate 63 Respiratory Rate 16 Blood Pressure 140/60 170/84 H Pulse Oximetry 100 Oxygen Delivery Room Air 11/05/24 04:58 11/05/24 08:16 11/05/24 08:16 Temperature 97.4 F L Pulse Rate 76 73 73 Respiratory Rate 20 20 20 Blood Pressure 174/88 H Pulse Oximetry 100 94 Oxygen Delivery Room Air Intake/Output Intake/Output: Intake & Output 11/02/24 11/03/24 11/04/24 11/05/24 23:59 23:59 23:59 23:59 Intake Total 2895.8 1523.8 1788.3 1550 Output Total 300 50 Balance 2895.8 1523.8 1488.3 1500 Meds/Results Medications: Active Medications Generic Name Dose Route Start Last Admin Trade Name Freq PRN Reason Stop Dose Admin Acetaminophen 650 mg 11/01/24 17:53 Acetaminophen 325 Mg Tablet PO Q4H PRN Mild Pain (1-3) or Fever Hydrocodone Bitart/Acetaminophen 1 tab 11/01/24 17:53 11/03/24 12:41 Hydrocodone/Acetaminophen (*Crx) 5-325 Mg Tablet PO 1 tab Q4H PRN Administration Moderate Pain (4-6) Albuterol 2 puff 11/01/24 22:09 Albuterol Sulfate (*Sp) Aerosol 1 Puff INHALATION Q4-6H PRN shortness of breath or wheezing Aspirin 81 mg 11/02/24 09:00 11/05/24 09:06 Aspirin 81 Mg Enteric Tablet PO Not Given DAILY [facility] Enoxaparin Sodium 40 mg 11/02/24 09:00 11/04/24 08:24 Enoxaparin 40 Mg/0.4 Ml Syringe SUB-Q 40 mg DAILY BETTINA Administration Fluticasone/Umeclidinium/Vilanterol 1 puff 11/02/24 09:00 11/05/24 08:16 Fluticasone/Umeclidin/Vilanter 100-62.5-25 Mcg Ellipta INHALATION Not Given DAILY BETTINA Folic Acid 1 mg 11/02/24 09:00 11/03/24 08:38 Folic Acid 1 Mg Tablet PO 1 mg DAILY BETTINA Administration Hydralazine HCl 5 mg 11/04/24 15:16 Hydralazine Hcl 20 Mg/Ml Vial IV PUSH Q8H PRN Blood Pressure - High Dextrose/Lactated Ringer's 1,000 mls @ 100 mls/hr 11/03/24 14:30 11/05/24 05:18 Dextrose 5%/Lactated Ringers IV CONT 100 mls/hr .Q10H BETTINA Administration Morphine Sulfate 4 mg 11/01/24 13:45 11/05/24 05:21 Morphine Sulfate (*Crx) 4 Mg/Ml Inj IV PUSH 4 mg Q4H PRN Administration Pain Rated 7-10 Morphine Sulfate 2 mg 11/03/24 18:37 11/05/24 12:08 Morphine Sulfate (*Crx) 2 Mg/Ml Inj IV PUSH 2 mg Q3H PRN Administration Pain Rated 4-6 Ondansetron HCl 4 mg 11/01/24 18:05 11/03/24 22:35 Ondansetron Inj 4 Mg/2 Ml Vial IV PUSH 4 mg Q4H PRN Administration Nausea And Vomiting Phenol 1 spray 11/04/24 11:58 11/04/24 13:37 Phenol/Sod Pheno [place] Garcia (*Bkc) MUCOUS MEM 1 spray PRN PRN Administration Sore Throat Radiology Results: ITS Impressions Chest X-Ray 11/01/24 10:18 Impression: 1: Progression of spiculated right upper lobe mass with associated calcifications. Cannot exclude malignancy. Recommend further evaluation with CT-guided biopsy or pet/CT scan. Abdomen/Pelvis CT 11/01/24 10:37 IMPRESSION: Multiple loops of dilated, fluid-filled, featureless small bowel with segments of mural thickening within portions of the the colon (which demonstrate diverticulosis). This constellation of findings suggest a possible ileus, rather than a discrete bowel obstruction. No fat plane between the uterus and the thickened loop of distal sigmoid colon with presacral induration in the left hemipelvis. Chest CT 11/01/24 11:15 IMPRESSION: 1. Mild to moderate emphysema with persistent tree-in-bud opacities in the dependent left lower lobe consistent with bronchiolitis. 2. No recent interval change in a 4.6 x 3.5 similar thick-walled centrally cavitary lesion at the right apex which is decreased in size and degree of wall thickening since 2022, likely scarring as sequela of chronic infection. Abdomen X-Ray 11/03/24 19:36 IMPRESSION: Shallow positioned NG tube, consider advancing 4 cm. Labs Labs: Laboratory Results - last 24 hr 11/05/24 05:47 WBC 9.8 RBC 3.83 L Hgb 12.2 Hct 37.4 MCV 97.7 MCH 31.9 MCHC 32.6 RDW 14.6 H Plt Count 425 H MPV 9.3 Immature Gran % (Auto) 0.7 H Neut % (Auto) 67.2 Lymph % (Auto) 19.2 [place] % (Auto) 8.6 H Eos % (Auto) 4.0 Baso % (Auto) 0.3 Lymph # (Auto) 1.88 [place] # (Auto) 0.8 H Eos # (Auto) 0.4 H Baso # (Auto) 0.0 Abs Immat Gran (auto) 0.07 H Absolute Neuts (auto) 6.6 Absolute Nucleated RBC 0.000 Nucleated RBC % 0.0 Sodium 136 L Potassium 3.7 Chloride 99 Carbon Dioxide 32 H Anion Gap 5 BUN < 2 L Creatinine 0.58 L Estim Creat Clear Calc 66 Estimated GFR > 60 Glucose 88 Calcium 8.9 Magnesium 1.3 L
[2024-11-05 13:55] VITALS: BP 183/74; PULSE 69; RESP 16; TEMP 36.6; O2SAT 94
[2024-11-05] MEDS: MAGNESIUM SULF 4 GM/WATER100ML 4 GM/100 ML BAG IVPB (14:59)
--- NOTE | 2024-11-05 15:14 | P.PNIM_ITS ---
Progress Note: A&P Assessment and Plan (1) Ileus: Code(s): K56.7 - Ileus, unspecified Status: Acute (2) GOYO (acute kidney injury): Code(s): N17.9 - Acute kidney failure, unspecified Status: Acute (3) Leukocytosis: Code(s): D72.829 - Elevated white blood cell count, unspecified Status: Acute Plan 74-year-old female with history of hereditary hemochromatosis, cirrhosis, COPD, prior alcohol use disorder, history of bowel resection, hypertension presents to [facility] ER on 11/01/2024 with complaint of abdominal pain. She has been having loose bowel movements and nausea. She was just discharged from [facility] on 10/27/2024 with colitis, bowel obstruction, pneumonia, UTI. ER workup revealed leukocytosis, serum creatinine 1.25, contaminated urinalysis, CT abdomen pelvis reveals multiple loops of dilated fluid-filled featureless small bowel with segments of mural thickening within portions of the colon, suggestive of ileus. Chest CT demonstrating moderate emphysema with persistent tree-in-bud opacities in the dependent left lower lobe consistent with bronchiolitis. Chronic cavitary lesion at right apex peer She was given IV fluids and Zosyn. C diff was negative. ---- NG tube placed on 11/03/2024 for GI decompression. Had a bowel movement and 11/05/2024, no nausea vomiting. General surgery remove NG tube. Placed on clear liquid diet. Advance as tolerated. Currently on Zosyn. Follow-up stool and blood cultures. Awaiting GI input for decision on colonoscopy. Chloraseptic spray for sore throat. Uncontrolled blood pressure. Giving hydralazine 10 mg IV x1. Hydralazine p.r.n. for SBP greater than 180. Magnesium 1.3 on 11/05/2024. Administered magnesium 4 g IV x1. Patient wishes to be full code. Continue SCDs. D5 lactated Ringer's at 100 cc/hour. Lovenox 40 mg subQ q.day. hold if patient to go for procedure. Subjective Date/time seen: 11/05/24 15:14 Interval history: No acute overnight events. No abdominal pain nausea or vomiting. Patient had a bowel movement. Review of Systems Review of Systems: All systems reviewed & are unremarkable except as noted in HPI and below (Subjective) Exam Const: General: comfortable and no acute distress Other: A&O x3 Eyes: Pupils: Equal, round and reactive pupils present Neck: Neck: supple Resp: Effort & Inspection: normal respiratory effort Auscultation: clear to auscultation bilaterally Cardio: Rate: regular rate Rhythm: regular rhythm GI: Other: Slight distension, but soft. No tenderness to palpations. Neuro: Motor exam (neuro): 5/5 motor strength present throughout Extrem: General: no edema Objective Data Vital Signs Vital Signs: Vital Signs - 24 hr 11/04/24 17:15 11/04/24 18:14 11/04/24 19:30 Temperature Pulse Rate 81 Respiratory Rate Blood Pressure 176/84 H 210/100 H 140/60 Pulse Oximetry Oxygen Delivery 11/04/24 20:00 11/04/24 20:32 11/05/24 04:58 Temperature 97.9 F 97.4 F L Pulse Rate 63 76 Respiratory Rate 16 20 Blood Pressure 170/84 H 174/88 H Pulse Oximetry 100 100 Oxygen Delivery Room Air 11/05/24 08:16 11/05/24 08:16 11/05/24 13:55 Temperature 97.8 F Pulse Rate 73 73 69 Respiratory Rate 20 20 16 Blood Pressure 183/74 H Pulse Oximetry 94 94 Oxygen Delivery Room Air Intake/Output Intake/Output: Intake & Output 11/02/24 11/03/24 11/04/24 11/05/24 23:59 23:59 23:59 23:59 Intake Total 2895.8 1523.8 1788.3 1550 Output Total 300 50 Balance 2895.8 1523.8 1488.3 1500 Meds/Results Medications: Active Medications Generic Name Dose Route Start Last Admin Trade Name Freq PRN Reason Stop Dose Admin Acetaminophen 650 mg 11/01/24 17:53 Acetaminophen 325 Mg Tablet PO Q4H PRN Mild Pain (1-3) or Fever Hydrocodone Bitart/Acetaminophen 1 tab 11/01/24 17:53 11/03/24 12:41 Hydrocodone/Acetaminophen (*Crx) 5-325 Mg Tablet PO 1 tab Q4H PRN Administration Moderate Pain (4-6) Albuterol 2 puff 11/01/24 22:09 Albuterol Sulfate (*Sp) Aerosol 1 Puff INHALATION Q4-6H PRN shortness of breath or wheezing Aspirin 81 mg 11/02/24 09:00 11/05/24 09:06 Aspirin 81 Mg Enteric Tablet PO Not Given DAILY [facility] Enoxaparin Sodium 40 mg 11/02/24 09:00 11/04/24 08:24 Enoxaparin 40 Mg/0.4 Ml Syringe SUB-Q 40 mg DAILY BETTINA Administration Fluticasone/Umeclidinium/Vilanterol 1 puff 11/02/24 09:00 11/05/24 08:16 Fluticasone/Umeclidin/Vilanter 100-62.5-25 Mcg Ellipta INHALATION Not Given DAILY [facility] Folic Acid 1 mg 11/02/24 09:00 11/03/24 08:38 Folic Acid 1 Mg Tablet PO 1 mg DAILY [facility] Administration Hydralazine HCl 5 mg 11/04/24 15:16 Hydralazine Hcl 20 Mg/Ml Vial IV PUSH Q8H PRN Blood Pressure - High Dextrose/Lactated Ringer's 1,000 mls @ 100 mls/hr 11/03/24 14:30 11/05/24 05:18 Dextrose 5%/Lactated Ringers IV CONT 100 mls/hr .Q10H BETTINA Administration Magnesium Sulfate 4 gm in 100 mls @ 25 mls/hr 11/05/24 14:45 11/05/24 14:59 Magnesium Sulf 4 Gm/[id number] IVPB 11/05/24 18:44 25 mls/hr ONCE ONE Administration Morphine Sulfate 4 mg 11/01/24 13:45 11/05/24 05:21 Morphine Sulfate (*Crx) 4 Mg/Ml Inj IV PUSH 4 mg Q4H PRN Administration Pain Rated 7-10 Morphine Sulfate 2 mg 11/03/24 18:37 11/05/24 12:08 Morphine Sulfate (*Crx) 2 Mg/Ml Inj IV PUSH 2 mg Q3H PRN Administration Pain Rated 4-6 Ondansetron HCl 4 mg 11/01/24 18:05 11/03/24 22:35 Ondansetron Inj 4 Mg/2 Ml Vial IV PUSH 4 mg Q4H PRN Administration Nausea And Vomiting Phenol 1 spray 11/04/24 11:58 11/04/24 13:37 Phenol/Sod Pheno [place] Garcia (*Bkc) MUCOUS MEM 1 spray PRN PRN Administration Sore Throat Radiology Results: ITS Impressions Chest X-Ray 11/01/24 10:18 Impression: 1: Progression of spiculated right upper lobe mass with associated calcifications. Cannot exclude malignancy. Recommend further evaluation with CT- guided biopsy or pet/CT scan. Abdomen/Pelvis CT 11/01/24 10:37 IMPRESSION: Multiple loops of dilated, fluid-filled, featureless small bowel with segments of mural thickening within portions of the the colon (which demonstrate diverticulosis). This constellation of findings suggest a possible ileus, rather than a discrete bowel obstruction. No fat plane between the uterus and the thickened loop of distal sigmoid colon with presacral induration in the left hemipelvis. Chest CT 11/01/24 11:15 IMPRESSION: 1. Mild to moderate emphysema with persistent tree-in-bud opacities in the dependent left lower lobe consistent with bronchiolitis. 2. No recent interval change in a 4.6 x 3.5 similar thick-walled centrally cavitary lesion at the right apex which is decreased in size and degree of wall thickening since 2022, likely scarring as sequela of chronic infection. Abdomen X-Ray 11/03/24 19:36 IMPRESSION: Shallow positioned NG tube, consider advancing 4 cm. Labs Labs: Laboratory Results - last 24 hr 11/05/24 05:47 WBC 9.8 RBC 3.83 L Hgb 12.2 Hct 37.4 MCV 97.7 MCH 31.9 MCHC 32.6 RDW 14.6 H Plt Count 425 H MPV 9.3 Immature Gran % (Auto) 0.7 H Neut % (Auto) 67.2 Lymph % (Auto) 19.2 [place] % (Auto) 8.6 H Eos % (Auto) 4.0 Baso % (Auto) 0.3 Lymph # (Auto) 1.88 [place] # (Auto) 0.8 H Eos # (Auto) 0.4 H Baso # (Auto) 0.0 Abs Immat Gran (auto) 0.07 H Absolute Neuts (auto) 6.6 Absolute Nucleated RBC 0.000 Nucleated RBC % 0.0 Sodium 136 L Potassium 3.7 Chloride 99 Carbon Dioxide 32 H Anion Gap 5 BUN < 2 L Creatinine 0.58 L Estim Creat Clear Calc 66 Estimated GFR > 60 Glucose 88 Calcium 8.9 Magnesium 1.3 L
[2024-11-05] MEDS: ENOXAPARIN 40 MG/0.4 ML SYRINGE SUB-Q (15:46)
--- NOTE | 2024-11-05 18:33 | P.PNGI_ITS ---
Progress Note: A&P Assessment and Plan (1) Ileus: Code(s): K56.7 - Ileus, unspecified Status: Acute Assessment and Plan: recurrent ileus, also possible colitis NGT removed and overall better will attempt scopes probably in next 2-3 days, will reassess tomorrow continue medical management surgery on board (2) Generalized abdominal discomfort: Code(s): R10.84 - Generalized abdominal pain Status: Acute Assessment and Plan: better ngt removed (3) Hereditary hemochromatosis: Code(s): E83.110 - Hereditary hemochromatosis Status: Acute (4) Cirrhosis: Code(s): K74.60 - Unspecified cirrhosis of liver Status: Acute Subjective Date/time seen: 11/05/24 18:33 Interval history: NGT removed, overall better and passing flatus she would like to wait at least another day before attempting to have bowel prep for scopes Review of Systems Review of Systems: All systems reviewed & are unremarkable except as noted in HPI and below Exam Const: General: comfortable and no acute distress Other: A&O x3 HENMT: Face/Nose/Sinus: Normal nares present Eyes: Pupils: Equal, round and reactive pupils present Neck: Neck: supple Resp: Effort & Inspection: normal respiratory effort Auscultation: clear to auscultation bilaterally Cardio: Rate: regular rate Rhythm: regular rhythm GI: GI Palp: Yes Soft to palpation Other: Slight distension, but soft. No tenderness to palpations. Skin: General skin exam: normal color Neuro: Speech: normal speech Motor exam (neuro): 5/5 motor strength present throughout Extrem: General: no edema Objective Data Vital Signs Vital Signs: Vital Signs - 24 hr 11/04/24 19:30 11/04/24 20:00 11/04/24 20:32 Temperature 97.9 F Pulse Rate 63 Respiratory Rate 16 Blood Pressure 140/60 170/84 H Pulse Oximetry 100 Oxygen Delivery Room Air 11/05/24 04:58 11/05/24 08:16 11/05/24 08:16 Temperature 97.4 F L Pulse Rate 76 73 73 Respiratory Rate 20 20 20 Blood Pressure 174/88 H Pulse Oximetry 100 94 Oxygen Delivery Room Air 11/05/24 13:55 Temperature 97.8 F Pulse Rate 69 Respiratory Rate 16 Blood Pressure 183/74 H Pulse Oximetry 94 Oxygen Delivery Intake/Output Intake/Output: Intake & Output 11/02/24 11/03/24 11/04/24 11/05/24 23:59 23:59 23:59 23:59 Intake Total 2895.8 1523.8 1788.3 2550 Output Total 300 50 Balance 2895.8 1523.8 1488.3 2500 Meds/Results Medications: Active Medications Generic Name Dose Route Start Last Admin Trade Name Freq PRN Reason Stop Dose Admin Acetaminophen 650 mg 11/01/24 17:53 Acetaminophen 325 Mg Tablet PO Q4H PRN Mild Pain (1-3) or Fever Hydrocodone Bitart/Acetaminophen 1 tab 11/01/24 17:53 11/03/24 12:41 Hydrocodone/Acetaminophen (*Crx) 5-325 Mg Tablet PO 1 tab Q4H PRN Administration Moderate Pain (4-6) Albuterol 2 puff 11/01/24 22:09 Albuterol Sulfate (*Sp) Aerosol 1 Puff INHALATION Q4-6H PRN shortness of breath or wheezing Aspirin 81 mg 11/02/24 09:00 11/05/24 09:06 Aspirin 81 Mg Enteric Tablet PO Not Given DAILY [facility] Enoxaparin Sodium 40 mg 11/02/24 09:00 11/04/24 08:24 Enoxaparin 40 Mg/0.4 Ml Syringe SUB-Q 40 mg DAILY BETTINA Administration Fluticasone/Umeclidinium/Vilanterol 1 puff 11/02/24 09:00 11/05/24 08:16 Fluticasone/Umeclidin/Vilanter 100-62.5-25 Mcg Ellipta INHALATION Not Given DAILY BETTINA Folic Acid 1 mg 11/02/24 09:00 11/03/24 08:38 Folic Acid 1 Mg Tablet PO 1 mg DAILY BETTINA Administration Hydralazine HCl 5 mg 11/04/24 15:16 Hydralazine Hcl 20 Mg/Ml Vial IV PUSH Q8H PRN Blood Pressure - High Dextrose/Lactated Ringer's 1,000 mls @ 100 mls/hr 11/03/24 14:30 11/05/24 15:46 Dextrose 5%/Lactated Ringers IV CONT 100 mls/hr .Q10H BETTINA Administration Magnesium Sulfate 4 gm in 100 mls @ 25 mls/hr 11/05/24 14:45 11/05/24 14:59 Magnesium Sulf 4 Gm/[id number] IVPB 11/05/24 18:44 25 mls/hr ONCE ONE Administration Morphine Sulfate 4 mg 11/01/24 13:45 11/05/24 05:21 Morphine Sulfate (*Crx) 4 Mg/Ml Inj IV PUSH 4 mg Q4H PRN Administration Pain Rated 7-10 Morphine Sulfate 2 mg 11/03/24 18:37 11/05/24 15:47 Morphine Sulfate (*Crx) 2 Mg/Ml Inj IV PUSH 2 mg Q3H PRN Administration Pain Rated 4-6 Ondansetron HCl 4 mg 11/01/24 18:05 11/03/24 22:35 Ondansetron Inj 4 Mg/2 Ml Vial IV PUSH 4 mg Q4H PRN Administration Nausea And Vomiting Phenol 1 spray 11/04/24 11:58 11/04/24 13:37 Phenol/Sod Pheno [place] Garcia (*Bkc) MUCOUS MEM 1 spray PRN PRN Administration Sore Throat Radiology Results: ITS Impressions Chest X-Ray 11/01/24 10:18 Impression: 1: Progression of spiculated right upper lobe mass with associated calcifications. Cannot exclude malignancy. Recommend further evaluation with CT- guided biopsy or pet/CT scan. Abdomen/Pelvis CT 11/01/24 10:37 IMPRESSION: Multiple loops of dilated, fluid-filled, featureless small bowel with segments of mural thickening within portions of the the colon (which demonstrate diverticulosis). This constellation of findings suggest a possible ileus, rather than a discrete bowel obstruction. No fat plane between the uterus and the thickened loop of distal sigmoid colon with presacral induration in the left hemipelvis. Chest CT 11/01/24 11:15 IMPRESSION: 1. Mild to moderate emphysema with persistent tree-in-bud opacities in the dependent left lower lobe consistent with bronchiolitis. 2. No recent interval change in a 4.6 x 3.5 similar thick-walled centrally cavitary lesion at the right apex which is decreased in size and degree of wall thickening since 2022, likely scarring as sequela of chronic infection. Abdomen X-Ray 11/03/24 19:36 IMPRESSION: Shallow positioned NG tube, consider advancing 4 cm. Labs Labs: Laboratory Results - last 24 hr 11/05/24 05:47 WBC 9.8 RBC 3.83 L Hgb 12.2 Hct 37.4 MCV 97.7 MCH 31.9 MCHC 32.6 RDW 14.6 H Plt Count 425 H MPV 9.3 Immature Gran % (Auto) 0.7 H Neut % (Auto) 67.2 Lymph % (Auto) 19.2 [place] % (Auto) 8.6 H Eos % (Auto) 4.0 Baso % (Auto) 0.3 Lymph # (Auto) 1.88 [place] # (Auto) 0.8 H Eos # (Auto) 0.4 H Baso # (Auto) 0.0 Abs Immat Gran (auto) 0.07 H Absolute Neuts (auto) 6.6 Absolute Nucleated RBC 0.000 Nucleated RBC % 0.0 Sodium 136 L Potassium 3.7 Chloride 99 Carbon Dioxide 32 H Anion Gap 5 BUN < 2 L Creatinine 0.58 L Estim Creat Clear Calc 66 Estimated GFR > 60 Glucose 88 Calcium 8.9 Magnesium 1.3 L
[2024-11-05 20:02] VITALS: BP 186/98; PULSE 87; RESP 16; TEMP 36.7; O2SAT 92
[2024-11-05 20:35] VITALS: BP 146/78
[2024-11-06] VITALS (7 sets, daily range): BP systolic 143–177; BP diastolic 72–87; PULSE 72–92; RESP 14–20; TEMP 36.3–36.7; O2SAT 94–97
--- NOTE | 2024-11-06 02:30 | PC.NURSE ---
Patient refused IV fluids at 2am and stated that she is not getting sleep as she wakes up every 15-20 minutes to void. Charge nurse made aware and health education given to the patient on the importance of her IV fluids.
[2024-11-06] MEDS: MORPHINE SULFATE (*CRX) 2 MG/ML INJ IV PUSH (05:33)
[2024-11-06 06:01] LABS: Hematocrit 37.3 % (37.0-47.0); Hemoglobin 12.8 g/dL (12.0-15.0); Immature Granulocyte Percent A 0.6 % (0-0.5); Lymphocytes Absolute Auto 2.01 K/mm3 (0.9-3.2); Mean Corpuscular HGB Conc 34.3 g/dl (32-36); Mean Corpuscular Hemoglobin 32.2 pg (26-34); Mean Corpuscular Volume 93.7 fl (80-100); Nucleated Red Blood Cells Absolute Auto 0.000 K/mm3 (0.0-0.012); Nucleated Red Blood Cells Perc 0.0 % (0.0-0.2); Platelet Count Result 426 k/mm3 (150-375); Red Blood Count 3.98 M/mm3 (4.2-5.4); White Blood Count 9.8 K/mm3 (4.5-10.0)
[2024-11-06 06:21] LABS: Anion Gap 6 mmol/L (4-12); Calcium 9.0 mg/dL (8.4-10.2); Carbon Dioxide 30 mmol/L (22-30); Chloride 98 mmol/L (98-107); Estimated CRCL calculation 75 ml/min; Estimated Glomerular Filt Rate > 60; Glucose 105 mg/dL (65-110); Magnesium 1.7 mg/dL (1.6-2.3); Sodium 134 mmol/L (137-145)
[2024-11-06 06:29] LABS: Potassium 3.2 mmol/L (3.4-5.0)
[2024-11-06 06:30] LABS: Blood Urea Nitrogen < 2 mg/dL (7-17)
[2024-11-06] MEDS: FLUTICASONE/UMECLIDIN/VILANTER 100-62.5-25 MCG ELLIPTA 1 PUFF INHALATION (08:20)
--- NOTE | 2024-11-06 11:02 | P.PNGS_ITS ---
Progress Note: A&P Assessment and Plan (1) Ileus: Code(s): K56.7 - Ileus, unspecified Status: Acute Assessment and Plan: * Resolving. Her abdomen is much less distended. No abdominal pain today. Bowels are moving and tolerating clear liquids well. * Will leave diet advancement up to GI as they are planning for a colonoscopy. Continue clear liquids for now. (2) Acute colitis: Code(s): K52.9 - Noninfective gastroenteritis and colitis, unspecified Status: Acute Assessment and Plan: * This is her second admission for colitis this month. Most recent CT scan showed mural thickening of the ascending and proximal transverse colon, as well as the rectosigmoid colon. White blood cell count is normal and patient no longer on antibiotics. GI following to decide on timing for a colonoscopy in the next day or so. Plan Discussed patient's case and plan of care with Dr. Perkins. Subjective Subjective Date/Time Seen: 11/06/24 11:02 Patient reports: no new complaints, feels better, tolerating liquids well, flatus and bowel movement Interval history: Patient denies any abdominal pain today. She reports overall feeling much better. She has had multiple bowel movements in the past 24 hours (more than 3- 4). She feels much less bloated. GI planning to proceed with colonoscopy in the next day or so. Exam Const: General: comfortable and no acute distress Orientation/consciousness: patient oriented x3 GI: Inspection: other (Mildly distended, but much improved and soft) GI Palp: Yes Soft to palpation, No Tenderness to palpation present (GI), No Guarding due to palpation present (GI) and No Rebound tenderness present Auscultation: normal bowel sounds Objective Data Vital Signs Vital Signs: Vital Signs - 24 hr 11/05/24 13:55 11/05/24 20:00 11/05/24 20:02 Temperature 97.8 F 98.0 F Pulse Rate 69 87 Respiratory Rate 16 16 Blood Pressure 183/74 H 186/98 H Pulse Oximetry 94 92 Oxygen Delivery Room Air 11/05/24 20:35 11/06/24 05:03 11/06/24 08:22 Temperature 97.4 F L Pulse Rate 92 90 Respiratory Rate 18 20 Blood Pressure 146/78 H 177/87 H Pulse Oximetry 95 Oxygen Delivery 11/06/24 08:24 Temperature Pulse Rate 90 Respiratory Rate Blood Pressure Pulse Oximetry 95 Oxygen Delivery Room Air Intake/Output Intake/Output: Intake & Output 11/03/24 11/04/24 11/05/24 11/06/24 23:59 23:59 23:59 23:59 Intake Total 1523.8 1788.3 2550 1070 Output Total 300 50 800 Balance 1523.8 1488.3 2500 270 Meds/Results Medications: Active Medications Generic Name Dose Route Start Last Admin Trade Name Freq PRN Reason Stop Dose Admin Acetaminophen 650 mg 11/01/24 17:53 Acetaminophen 325 Mg Tablet PO Q4H PRN Mild Pain (1-3) or Fever Hydrocodone Bitart/Acetaminophen 1 tab 11/01/24 17:53 11/03/24 12:41 Hydrocodone/Acetaminophen (*Crx) 5-325 Mg Tablet PO 1 tab Q4H PRN Administration Moderate Pain (4-6) Albuterol 2 puff 11/01/24 22:09 Albuterol Sulfate (*Sp) Aerosol 1 Puff INHALATION Q4-6H PRN shortness of breath or wheezing Aspirin 81 mg 11/02/24 09:00 11/06/24 08:06 Aspirin 81 Mg Enteric Tablet PO Not Given DAILY BETTINA Enoxaparin Sodium 40 mg 11/02/24 09:00 11/04/24 08:24 Enoxaparin 40 Mg/0.4 Ml Syringe SUB-Q 40 mg DAILY BETTINA Administration Fluticasone/Umeclidinium/Vilanterol 1 puff 11/02/24 09:00 11/06/24 08:20 Fluticasone/Umeclidin/Vilanter 100-62.5-25 Mcg Ellipta INHALATION 1 puff DAILY BETTINA Administration Folic Acid 1 mg 11/02/24 09:00 11/03/24 08:38 Folic Acid 1 Mg Tablet PO 1 mg DAILY BETTINA Administration Hydralazine HCl 5 mg 11/04/24 15:16 11/05/24 20:16 Hydralazine Hcl 20 Mg/Ml Vial IV PUSH 5 mg Q8H PRN Administration Blood Pressure - High Dextrose/Lactated Ringer's 1,000 mls @ 100 mls/hr 11/03/24 14:30 11/06/24 02:00 Dextrose 5%/Lactated Ringers IV CONT Not Given .Q10H BETTINA Morphine Sulfate 4 mg 11/01/24 13:45 11/05/24 05:21 Morphine Sulfate (*Crx) 4 Mg/Ml Inj IV PUSH 4 mg Q4H PRN Administration Pain Rated 7-10 Morphine Sulfate 2 mg 11/03/24 18:37 11/06/24 05:33 Morphine Sulfate (*Crx) 2 Mg/Ml Inj IV PUSH 2 mg Q3H PRN Administration Pain Rated 4-6 Ondansetron HCl 4 mg 11/01/24 18:05 11/03/24 22:35 Ondansetron Inj 4 Mg/2 Ml Vial IV PUSH 4 mg Q4H PRN Administration Nausea And Vomiting Phenol 1 spray 11/04/24 11:58 11/04/24 13:37 Phenol/Sod Pheno [place] Garcia (*Bkc) MUCOUS MEM 1 spray PRN PRN Administration Sore Throat Radiology Results: ITS Impressions Chest X-Ray 11/01/24 10:18 Impression: 1: Progression of spiculated right upper lobe mass with associated calcifications. Cannot exclude malignancy. Recommend further evaluation with CT- guided biopsy or pet/CT scan. Abdomen/Pelvis CT 11/01/24 10:37 IMPRESSION: Multiple loops of dilated, fluid-filled, featureless small bowel with segments of mural thickening within portions of the the colon (which demonstrate diverticulosis). This constellation of findings suggest a possible ileus, rather than a discrete bowel obstruction. No fat plane between the uterus and the thickened loop of distal sigmoid colon with presacral induration in the left hemipelvis. Chest CT 11/01/24 11:15 IMPRESSION: 1. Mild to moderate emphysema with persistent tree-in-bud opacities in the dependent left lower lobe consistent with bronchiolitis. 2. No recent interval change in a 4.6 x 3.5 similar thick-walled centrally cavitary lesion at the right apex which is decreased in size and degree of wall thickening since 2022, likely scarring as sequela of chronic infection. Abdomen X-Ray 11/03/24 19:36 IMPRESSION: Shallow positioned NG tube, consider advancing 4 cm. Labs Labs: Laboratory Results - last 24 hr 11/06/24 05:41 WBC 9.8 RBC 3.98 L Hgb 12.8 Hct 37.3 MCV 93.7 MCH 32.2 MCHC 34.3 RDW 14.6 H Plt Count 426 H MPV 9.3 Immature Gran % (Auto) 0.6 H Neut % (Auto) 66.1 Lymph % (Auto) 20.6 [place] % (Auto) 8.7 H Eos % (Auto) 3.5 Baso % (Auto) 0.5 Lymph # (Auto) 2.01 [place] # (Auto) 0.9 H Eos # (Auto) 0.3 Baso # (Auto) 0.1 Abs Immat Gran (auto) 0.06 H Absolute Neuts (auto) 6.5 Absolute Nucleated RBC 0.000 Nucleated RBC % 0.0 Sodium 134 L Potassium 3.2 L Chloride 98 Carbon Dioxide 30 Anion Gap 6 BUN < 2 L Creatinine 0.50 L Estim Creat Clear Calc 75 Estimated GFR > 60 Glucose 105 Calcium 9.0 Magnesium 1.7
--- NOTE | 2024-11-06 11:16 | P.PNIM_ITS ---
Progress Note: A&P Assessment and Plan (1) Ileus: Code(s): K56.7 - Ileus, unspecified Status: Acute (2) GOYO (acute kidney injury): Code(s): N17.9 - Acute kidney failure, unspecified Status: Acute (3) Leukocytosis: Code(s): D72.829 - Elevated white blood cell count, unspecified Status: Acute Plan 74-year-old female with history of hereditary hemochromatosis, cirrhosis, COPD, active nicotine abuse, prior alcohol use disorder, history of bowel resection, h ypertension, nocturnal hypoxemia with 2 L nasal cannula at night followed by Dr. Jefferson presents to [facility] ER on 11/01/2024 with complaint of abdominal pain. She has been having loose bowel movements and nausea. She was just discharged from [facility] on 10/27/2024 with colitis, bowel obstruction, pneumonia, UTI. ER workup revealed leukocytosis, serum creatinine 1.25, contaminated urinalysis, CT abdomen pelvis reveals multiple loops of dilated fluid-filled featureless small bowel with segments of mural thickening within portions of the colon, suggestive of ileus. Chest CT demonstrating moderate emphysema with persistent tree-in-bud opacities in the dependent left lower lobe consistent with bronchiolitis. Chronic cavitary lesion at right apex peer She was given IV fluids and Zosyn. C diff was negative. ---- NG tube placed on 11/03/2024 for GI decompression. NG tube removed on 11/05/2024. Tolerating clear liquid diet. Zosyn discontinued. No abdominal pain, pending decision for colonoscopy. Follow-up stool and blood cultures. Chloraseptic spray for sore throat. Uncontrolled blood pressure. Hydralazine p.r.n. for SBP greater than 180. May start p.o. antihypertensives after colonoscopy for long-term control. Hypokalemia on 11/06/2024. General surgery order replacement KCL tab 40 mEq x 1. Patient wishes to be full code. Continue SCDs. Patient refused IV infusion to those were discontinued. Patient okay with IV infusion during colonoscopy prep. Giving Lovenox 40 mg subQ per day until colonoscopy expected. Subjective Date/time seen: 11/06/24 11:16 Interval history: No major acute overnight events. Patient refused for IV infusion of fluids as she was urinating too often. After discussion with nurse, patient is willing to have fluids going during colonoscopy prep. She denies any nausea vomiting, she had chicken broth in the morning and tolerated it well. No abdominal pain or abdominal distension. Review of Systems Review of Systems: All systems reviewed & are unremarkable except as noted in HPI and below (Subjective) Exam Const: General: comfortable and no acute distress Orientation/consciousness: patient oriented x3 Resp: Effort & Inspection: normal respiratory effort Auscultation: clear to auscultation bilaterally Cardio: Rate: regular rate Rhythm: regular rhythm GI: GI Palp: Yes Soft to palpation, No Tenderness to palpation present (GI), No Guarding due to palpation present (GI) and No Rebound tenderness present Auscultation: normal bowel sounds Extrem: General: no edema Objective Data Vital Signs Vital Signs: Vital Signs - 24 hr 11/05/24 13:55 11/05/24 20:00 11/05/24 20:02 Temperature 97.8 F 98.0 F Pulse Rate 69 87 Respiratory Rate 16 16 Blood Pressure 183/74 H 186/98 H Pulse Oximetry 94 92 Oxygen Delivery Room Air 11/05/24 20:35 11/06/24 05:03 11/06/24 08:22 Temperature 97.4 F L Pulse Rate 92 90 Respiratory Rate 18 20 Blood Pressure 146/78 H 177/87 H Pulse Oximetry 95 Oxygen Delivery 11/06/24 08:24 Temperature Pulse Rate 90 Respiratory Rate Blood Pressure Pulse Oximetry 95 Oxygen Delivery Room Air Intake/Output Intake/Output: Intake & Output 11/03/24 11/04/24 11/05/24 11/06/24 23:59 23:59 23:59 23:59 Intake Total 1523.8 1788.3 2550 1070 Output Total 300 50 800 Balance 1523.8 1488.3 2500 270 Meds/Results Medications: Active Medications Generic Name Dose Route Start Last Admin Trade Name Freq PRN Reason Stop Dose Admin Acetaminophen 650 mg 11/01/24 17:53 Acetaminophen 325 Mg Tablet PO Q4H PRN Mild Pain (1-3) or Fever Hydrocodone Bitart/Acetaminophen 1 tab 11/01/24 17:53 11/03/24 12:41 Hydrocodone/Acetaminophen (*Crx) 5-325 Mg Tablet PO 1 tab Q4H PRN Administration Moderate Pain (4-6) Albuterol 2 puff 11/01/24 22:09 Albuterol Sulfate (*Sp) Aerosol 1 Puff INHALATION Q4-6H PRN shortness of breath or wheezing Aspirin 81 mg 11/02/24 09:00 11/06/24 08:06 Aspirin 81 Mg Enteric Tablet PO Not Given DAILY BETTINA Enoxaparin Sodium 40 mg 11/02/24 09:00 11/04/24 08:24 Enoxaparin 40 Mg/0.4 Ml Syringe SUB-Q 40 mg DAILY BETTINA Administration Enoxaparin Sodium 40 mg 11/06/24 11:15 Enoxaparin 40 Mg/0.4 Ml Syringe SUB-Q 11/06/24 11:16 ONCE ONE Fluticasone/Umeclidinium/Vilanterol 1 puff 11/02/24 09:00 11/06/24 08:20 Fluticasone/Umeclidin/Vilanter 100-62.5-25 Mcg Ellipta INHALATION 1 puff DAILY BETTINA Administration Folic Acid 1 mg 11/02/24 09:00 11/03/24 08:38 Folic Acid 1 Mg Tablet PO 1 mg DAILY BETTINA Administration Hydralazine HCl 5 mg 11/04/24 15:16 11/05/24 20:16 Hydralazine Hcl 20 Mg/Ml Vial IV PUSH 5 mg Q8H PRN Administration Blood Pressure - High Dextrose/Lactated Ringer's 1,000 mls @ 100 mls/hr 11/03/24 14:30 11/06/24 02:00 Dextrose 5%/Lactated Ringers IV CONT Not Given .Q10H [facility] Morphine Sulfate 4 mg 11/01/24 13:45 11/05/24 05:21 Morphine Sulfate (*Crx) 4 Mg/Ml Inj IV PUSH 4 mg Q4H PRN Administration Pain Rated 7-10 Morphine Sulfate 2 mg 11/03/24 18:37 11/06/24 05:33 Morphine Sulfate (*Crx) 2 Mg/Ml Inj IV PUSH 2 mg Q3H PRN Administration Pain Rated 4-6 Ondansetron HCl 4 mg 11/01/24 18:05 11/03/24 22:35 Ondansetron Inj 4 Mg/2 Ml Vial IV PUSH 4 mg Q4H PRN Administration Nausea And Vomiting Phenol 1 spray 11/04/24 11:58 11/04/24 13:37 Phenol/Sod Pheno [place] Garcia (*Bkc) MUCOUS MEM 1 spray PRN PRN Administration Sore Throat Radiology Results: ITS Impressions Chest X-Ray 11/01/24 10:18 Impression: 1: Progression of spiculated right upper lobe mass with associated calcifications. Cannot exclude malignancy. Recommend further evaluation with CT- guided biopsy or pet/CT scan. Abdomen/Pelvis CT 11/01/24 10:37 IMPRESSION: Multiple loops of dilated, fluid-filled, featureless small bowel with segments of mural thickening within portions of the the colon (which demonstrate diverticulosis). This constellation of findings suggest a possible ileus, rather than a discrete bowel obstruction. No fat plane between the uterus and the thickened loop of distal sigmoid colon with presacral induration in the left hemipelvis. Chest CT 11/01/24 11:15 IMPRESSION: 1. Mild to moderate emphysema with persistent tree-in-bud opacities in the dependent left lower lobe consistent with bronchiolitis. 2. No recent interval change in a 4.6 x 3.5 similar thick-walled centrally cavitary lesion at the right apex which is decreased in size and degree of wall thickening since 2022, likely scarring as sequela of chronic infection. Abdomen X-Ray 11/03/24 19:36 IMPRESSION: Shallow positioned NG tube, consider advancing 4 cm. Labs Labs: Laboratory Results - last 24 hr 11/06/24 05:41 WBC 9.8 RBC 3.98 L Hgb 12.8 Hct 37.3 MCV 93.7 MCH 32.2 MCHC 34.3 RDW 14.6 H Plt Count 426 H MPV 9.3 Immature Gran % (Auto) 0.6 H Neut % (Auto) 66.1 Lymph % (Auto) 20.6 [place] % (Auto) 8.7 H Eos % (Auto) 3.5 Baso % (Auto) 0.5 Lymph # (Auto) 2.01 [place] # (Auto) 0.9 H Eos # (Auto) 0.3 Baso # (Auto) 0.1 Abs Immat Gran (auto) 0.06 H Absolute Neuts (auto) 6.5 Absolute Nucleated RBC 0.000 Nucleated RBC % 0.0 Sodium 134 L Potassium 3.2 L Chloride 98 Carbon Dioxide 30 Anion Gap 6 BUN < 2 L Creatinine 0.50 L Estim Creat Clear Calc 75 Estimated GFR > 60 Glucose 105 Calcium 9.0 Magnesium 1.7
[2024-11-06] MEDS: POTASSIUM CHLORIDE 20 MEQ ER TABLET 40 MEQ PO (11:50)
[2024-11-06] MEDS: ENOXAPARIN 40 MG/0.4 ML SYRINGE SUB-Q (11:52)
--- NOTE | 2024-11-06 16:01 | WPDGIPROGNO ---
Progress Note: A&P Assessment and Plan (1) Ileus: Code(s): K56.7 - Ileus, unspecified Status: Acute Assessment and Plan: recurrent ileus, also possible colitis start bowel prep and scopes tomorrow continue medical management surgery on board (2) Generalized abdominal discomfort: Code(s): R10.84 - Generalized abdominal pain Status: Acute Assessment and Plan: much better tolerating diet (3) Hereditary hemochromatosis: Code(s): E83.110 - Hereditary hemochromatosis Status: Acute (4) Cirrhosis: Code(s): K74.60 - Unspecified cirrhosis of liver Status: Acute Subjective Date/time seen: 11/06/24 16:01 Interval history: overall better, had BM, less distended Review of Systems Review of Systems: All systems reviewed & are unremarkable except as noted in HPI and below Exam Const: General: comfortable and no acute distress Other: A&O x3 HENMT: Face/Nose/Sinus: Normal nares present Eyes: Pupils: Equal, round and reactive pupils present Neck: Neck: supple Resp: Effort & Inspection: normal respiratory effort Auscultation: clear to auscultation bilaterally Cardio: Rate: regular rate Rhythm: regular rhythm GI: GI Palp: Yes Soft to palpation Other: Slight distension, but soft. No tenderness to palpations. Skin: General skin exam: normal color Neuro: Speech: normal speech Motor exam (neuro): 5/5 motor strength present throughout Extrem: General: no edema Objective Data Vital Signs Vital Signs: Vital Signs - 24 hr 11/05/24 20:00 11/05/24 20:02 11/05/24 20:35 Temperature 98.0 F Pulse Rate 87 Respiratory Rate 16 Blood Pressure 186/98 H 146/78 H Pulse Oximetry 92 Oxygen Delivery Room Air 11/06/24 05:03 11/06/24 08:00 11/06/24 08:22 Temperature 97.4 F L Pulse Rate 92 90 Respiratory Rate 18 20 Blood Pressure 177/87 H Pulse Oximetry 95 95 Oxygen Delivery Room Air 11/06/24 08:24 11/06/24 14:00 Temperature 98.0 F Pulse Rate 90 72 Respiratory Rate 18 Blood Pressure 143/72 H Pulse Oximetry 95 96 Oxygen Delivery Room Air Intake/Output Intake/Output: Intake & Output 11/03/24 11/04/24 11/05/24 11/06/24 23:59 23:59 23:59 23:59 Intake Total 1523.8 1788.3 2550 1384 Output Total 300 50 800 Balance 1523.8 1488.3 8853 584 Meds/Results Medications: Active Medications Generic Name Dose Route Start Last Admin Trade Name Freq PRN Reason Stop Dose Admin Acetaminophen 650 mg 11/01/24 17:53 Acetaminophen 325 Mg Tablet PO Q4H PRN Mild Pain (1-3) or Fever Hydrocodone Bitart/Acetaminophen 1 tab 11/01/24 17:53 11/03/24 12:41 Hydrocodone/Acetaminophen (*Crx) 5-325 Mg Tablet PO 1 tab Q4H PRN Administration Moderate Pain (4-6) Albuterol 2 puff 11/01/24 22:09 Albuterol Sulfate (*Sp) Aerosol 1 Puff INHALATION Q4-6H PRN shortness of breath or wheezing Aspirin 81 mg 11/02/24 09:00 11/06/24 08:06 Aspirin 81 Mg Enteric Tablet PO Not Given DAILY BETTINA Bisacodyl 20 mg 11/06/24 17:00 Bisacodyl 5 Mg Tablet Ec PO 11/06/24 17:01 ONCE ONE Enoxaparin Sodium 40 mg 11/02/24 09:00 11/04/24 08:24 Enoxaparin 40 Mg/0.4 Ml Syringe SUB-Q 40 mg DAILY BETTINA Administration Fluticasone/Umeclidinium/Vilanterol 1 puff 11/02/24 09:00 11/06/24 08:20 Fluticasone/Umeclidin/Vilanter 100-62.5-25 Mcg Ellipta INHALATION 1 puff DAILY BETTINA Administration Folic Acid 1 mg 11/02/24 09:00 11/03/24 08:38 Folic Acid 1 Mg Tablet PO 1 mg DAILY BETTINA Administration Hydralazine HCl 5 mg 11/04/24 15:16 11/05/24 20:16 Hydralazine Hcl 20 Mg/Ml Vial IV PUSH 5 mg Q8H PRN Administration Blood Pressure - High Dextrose/Lactated Ringer's 1,000 mls @ 100 mls/hr 11/03/24 14:30 11/06/24 02:00 Dextrose 5%/Lactated Ringers IV CONT 0 mls/hr .Q10H BETTINA Infusion Magnesium Citrate 300 ml 11/07/24 01:00 Magnesium Citrate 300 Ml Btl PO 11/07/24 01:01 ONCE ONE Morphine Sulfate 4 mg 11/01/24 13:45 11/05/24 05:21 Morphine Sulfate (*Crx) 4 Mg/Ml Inj IV PUSH 4 mg Q4H PRN Administration Pain Rated 7-10 Morphine Sulfate 2 mg 11/03/24 18:37 11/06/24 05:33 Morphine Sulfate (*Crx) 2 Mg/Ml Inj IV PUSH 2 mg Q3H PRN Administration Pain Rated 4-6 Ondansetron HCl 4 mg 11/01/24 18:05 11/03/24 22:35 Ondansetron Inj 4 Mg/2 Ml Vial IV PUSH 4 mg Q4H PRN Administration Nausea And Vomiting Phenol 1 spray 11/04/24 11:58 11/04/24 13:37 Phenol/Sod Pheno [place] Garcia (*Bkc) MUCOUS MEM 1 spray PRN PRN Administration Sore Throat Polyethylene Glycol 238 gm 11/06/24 17:00 Polyethylene Glycol 3350 238 Gm Bottle PO 11/06/24 17:01 ONCE ONE Radiology Results: ITS Impressions Chest X-Ray 11/01/24 10:18 Impression: 1: Progression of spiculated right upper lobe mass with associated calcifications. Cannot exclude malignancy. Recommend further evaluation with CT-guided biopsy or pet/CT scan. Abdomen/Pelvis CT 11/01/24 10:37 IMPRESSION: Multiple loops of dilated, fluid-filled, featureless small bowel with segments of mural thickening within portions of the the colon (which demonstrate diverticulosis). This constellation of findings suggest a possible ileus, rather than a discrete bowel obstruction. No fat plane between the uterus and the thickened loop of distal sigmoid colon with presacral induration in the left hemipelvis. Chest CT 11/01/24 11:15 IMPRESSION: 1. Mild to moderate emphysema with persistent tree-in-bud opacities in the dependent left lower lobe consistent with bronchiolitis. 2. No recent interval change in a 4.6 x 3.5 similar thick-walled centrally cavitary lesion at the right apex which is decreased in size and degree of wall thickening since 2022, likely scarring as sequela of chronic infection. Abdomen X-Ray 11/03/24 19:36 IMPRESSION: Shallow positioned NG tube, consider advancing 4 cm. Labs Labs: Laboratory Results - last 24 hr 11/06/24 05:41 WBC 9.8 RBC 3.98 L Hgb 12.8 Hct 37.3 MCV 93.7 MCH 32.2 MCHC 34.3 RDW 14.6 H Plt Count 426 H MPV 9.3 Immature Gran % (Auto) 0.6 H Neut % (Auto) 66.1 Lymph % (Auto) 20.6 [place] % (Auto) 8.7 H Eos % (Auto) 3.5 Baso % (Auto) 0.5 Lymph # (Auto) 2.01 [place] # (Auto) 0.9 H Eos # (Auto) 0.3 Baso # (Auto) 0.1 Abs Immat Gran (auto) 0.06 H Absolute Neuts (auto) 6.5 Absolute Nucleated RBC 0.000 Nucleated RBC % 0.0 Sodium 134 L Potassium 3.2 L Chloride 98 Carbon Dioxide 30 Anion Gap 6 BUN < 2 L Creatinine 0.50 L Estim Creat Clear Calc 75 Estimated GFR > 60 Glucose 105 Calcium 9.0 Magnesium 1.7
[2024-11-06 16:58] LABS: Anion Gap 4 mmol/L (4-12); Blood Urea Nitrogen 2 mg/dL (7-17); Calcium 9.1 mg/dL (8.4-10.2); Carbon Dioxide 30 mmol/L (22-30); Chloride 95 mmol/L (98-107); Estimated CRCL calculation 74 ml/min; Estimated Glomerular Filt Rate > 60; Glucose 98 mg/dL (65-110); Potassium 3.5 mmol/L (3.4-5.0); Sodium 129 mmol/L (137-145)
[2024-11-06] MEDS: BISACODYL 5 MG TABLET EC 20 MG PO (17:12)
[2024-11-06] MEDS: ONDANSETRON INJ 4 MG/2 ML VIAL IV PUSH (23:53)
[2024-11-07] VITALS (8 sets, daily range): BP systolic 127–160; BP diastolic 71–91; PULSE 72–93; RESP 16–20; TEMP 36.2–37; O2SAT 93–100
[2024-11-07] MEDS: DEXTROSE 5%/LACTATED RINGERS 1,000 ML 100 ML IV CONT (00:30)
[2024-11-07] MEDS: MAGNESIUM CITRATE 300 ML BTL PO (01:01)
[2024-11-07] MEDS: ONDANSETRON INJ 4 MG/2 ML VIAL IV PUSH (05:13)
[2024-11-07 06:16] LABS: Anion Gap 10 mmol/L (4-12); Calcium 9.8 mg/dL (8.4-10.2); Carbon Dioxide 31 mmol/L (22-30); Chloride 95 mmol/L (98-107); Estimated CRCL calculation 63 ml/min; Estimated Glomerular Filt Rate > 60; Glucose 88 mg/dL (65-110); Magnesium 1.7 mg/dL (1.6-2.3); Potassium 3.5 mmol/L (3.4-5.0); Sodium 136 mmol/L (137-145)
--- NOTE | 2024-11-07 07:49 | P.PNAN_ITS ---
Anes - Initial Pre Proc Eval Procedure: Operation Date: 11/07/24 13:30 Proposed Procedures p EGD & Diagnostic Colonoscopy - Reyes Thorpe MD Date/Time: 11/07/24 07:49 Surgeon: Jaki Seay MD Pre Op Diagnosis: GOYO/Colitis Patient Data Age: 74 Gender: F Height: 1.65 m Weight: 64.6 kg Last Vital Signs Temp 36.7 C 11/07/24 05:25 Pulse 93 11/07/24 05:25 Resp 17 11/07/24 05:25 BP 127/76 11/07/24 05:25 Pulse Ox 100 11/07/24 05:25 O2 Del Method Nasal Cannula 11/06/24 21:00 O2 Flow Rate 2 11/06/24 21:00 Allergies Allergy/AdvReac Type Severity Reaction Status Date / Time mercury (elemental) Allergy Unknown Verified 11/01/24 18:00 Iodine and Iodide Containing AdvReac Rash Verified 11/01/24 18:00 Produc Home Medications ?Medication ?Instructions ?Recorded ?Confirmed ?Type albuterol sulfate 90 mcg/actuation 1 - 2 inh inhalation Q4-6H PRN 02/03/24 11/01/24 Rx aerosol inhaler shortness of breath or wheezing #8.5 grams Trelegy Ellipta 100 mcg-62.5 1 inh inhalation DAILY #60 ea 02/06/24 11/01/24 Rx mcg-25 mcg powder for inhalation (tvdcuvctyrx-pdsjytmuf-[id number]) aspirin 81 mg tablet,delayed 81 mg PO DAILY 05/16/24 11/01/24 History release folic acid 1 mg tablet 1 mg PO DAILY 06/14/24 11/01/24 History mecobalamin (vitamin B12) 500 mcg 500 mcg PO DAILY 06/14/24 11/01/24 History chewable tablet multivitamin (Daily Multi-Vitamin 1 tablet PO DAILY 10/22/24 11/01/24 History tablet) Laboratory Tests 11/06/24 11/07/24 16:18 05:32 Sodium 129 L mmol/L 136 L mmol/L (137-145) (137-145) Potassium 3.5 mmol/L 3.5 mmol/L (3.4-5.0) (3.4-5.0) Chloride 95 L mmol/L 95 L mmol/L (98-107) (98-107) Carbon Dioxide 30 mmol/L 31 H mmol/L (22-30) (22-30) Anion Gap 4 mmol/L 10 mmol/L (4-12) (4-12) BUN 2 L mg/dL Pending (7-17) Creatinine 0.51 L mg/dL 0.61 L mg/dL (0.7-1.0) (0.7-1.0) Estim Creat Clear Calc 74 ml/min 63 ml/min Estimated GFR > 60 > 60 (59 - ) (59 - ) Glucose 98 mg/dL 88 mg/dL (65-110) (65-110) Calcium 9.1 mg/dL 9.8 mg/dL (8.4-10.2) (8.4-10.2) Magnesium 1.7 mg/dL (1.6-2.3) Patient hx anesthesia problems: none Family hx anesthesia problems: none Results Review: All pre-operative results and documents have been reviewed as part of the pre- operative evaluation. [facility] Past Medical History Medical History DVT (deep venous thrombosis) 2023 Hemochromatosis Alcohol use Patient reports that she quit drinking alcohol in 2022 Cirrhosis Family history of colon cancer in father Gastritis and duodenitis Elevated ferritin Fatty liver History of bruising easily Family hx of colon cancer Hypertension COPD (chronic obstructive pulmonary disease) Surgical History Surgical History History of tooth extraction H/O colonoscopy with polypectomy H/O tubal ligation S/P tonsillectomy History of colon surgery cecum History of appendectomy Family History Family History Father Colon cancer Mother Heart failure Social History Social History Social History: 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 She lives with a roommate. She is and has 4 children. She has smoked 1- 1.5 packs of cigarettes per day since she was a teenager. She used to drink 4-5 alcoholic beverages a day but quit drinking approximately 2022. code status full code Smoking packs per day: 1 Smoking cigarettes per day: 20.0 Years smoked: 60 Smoking pack-years: 60.00 Smoking status: Current every day smoker Tobacco type: cigarettes Second hand tobacco smoke exposure: No Alcohol intake: former Drinks per week: 0 Alcohol use details: 5 shots per day Substance use: never Substance use type: does not use Do You Feel Safe in your Home?: Yes Lack of Transportation: No Lack of Food: Never True Current Housing: I Have Housing Concerned About Future Housing: No Difficulty Paying Gas/Electric Bills: No Difficulty Paying for Meds: No Currently Unemployed: No Education: Decline to Answer Difficulty w/ Childcare or Family Care: No Living arrangements: alone Occupation/Education: occupation 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 Gender identity (if verbalized by the patient): Female Spiritual care concerns: No Agree to blood products: Yes Anes - Eval Final PreProcedure Day of Procedure 11/07/24 07:49 Patient weight: normal Heart: regular rate and rhythm Lungs: clear to auscultation and normal air movement Airway: Mallampati scale class II Neurological: alert and oriented Last oral intake: >/= 8 hours ASA classification: IV Emergent: no Anesthetic plan: proceed Anesthesia type and monitoring: general GIVS and standard monitoring Results Review: All pre-operative results and documents have been reviewed as part of the pre- operative evaluation. Informed Consent: The patient's anesthetic plan and its attendant risks and benefits were discussed with the patient/family/POA. Questions were solicited and answers provided to the satisfaction of the patient/family/POA.
[2024-11-07 08:24] LABS: Blood Urea Nitrogen < 2 mg/dL (7-17)
[2024-11-07] MEDS: ASPIRIN 81 MG ENTERIC TABLET PO (09:14)
--- NOTE | 2024-11-07 10:30 | P.PNGS_ITS ---
Progress Note: A&P Assessment and Plan (1) Ileus: Code(s): K56.7 - Ileus, unspecified Status: Acute Assessment and Plan: * Resolved. Patient had bowel prep last night and is currently NPO for EGD/colonoscopy today. (2) Acute colitis: Code(s): K52.9 - Noninfective gastroenteritis and colitis, unspecified Status: Acute Assessment and Plan: * This is her second admission for colitis this month. Most recent CT scan showed mural thickening of the ascending and proximal transverse colon, as well as the rectosigmoid colon. White blood cell count is normal and patient no longer on antibiotics. GI planning for EGD and colonoscopy today. Plan Discussed patient's case and plan of care with Dr. Perkins. Subjective Subjective Date/Time Seen: 11/07/24 10:30 Interval history: Patient received bowel prep last night. She has been moving her bowels and did not get much sleep. She reports having some nausea and vomiting after drinking the Mag citrate. No nausea this morning. Denies any abdominal pain. Exam Const: General: comfortable and no acute distress GI: Inspection: non-distended GI Palp: Yes Soft to palpation, No Tenderness to palpation present (GI), No Guarding due to palpation present (GI) and No Rebound tenderness present Auscultation: normal bowel sounds Objective Data Vital Signs Vital Signs: Vital Signs - 24 hr 11/06/24 14:00 11/06/24 21:00 11/06/24 21:07 Temperature 98.0 F 97.5 F L Pulse Rate 72 77 Respiratory Rate 18 14 Blood Pressure 143/72 H 164/78 H Pulse Oximetry 96 97 94 Oxygen Delivery Nasal Cannula Oxygen Flow Rate 2 11/07/24 05:25 Temperature 98.1 F Pulse Rate 93 Respiratory Rate 17 Blood Pressure 127/76 Pulse Oximetry 100 Oxygen Delivery Oxygen Flow Rate Intake/Output Intake/Output: Intake & Output 11/04/24 11/05/24 11/06/24 11/07/24 23:59 23:59 23:59 23:59 Intake Total 1788.3 2550 1584 100 Output Total 300 50 800 Balance 1488.3 2500 784 100 Meds/Results Medications: Active Medications Generic Name Dose Route Start Last Admin Trade Name Freq PRN Reason Stop Dose Admin Acetaminophen 650 mg 11/01/24 17:53 Acetaminophen 325 Mg Tablet PO Q4H PRN Mild Pain (1-3) or Fever Hydrocodone Bitart/Acetaminophen 1 tab 11/01/24 17:53 11/03/24 12:41 Hydrocodone/Acetaminophen (*Crx) 5-325 Mg Tablet PO 1 tab Q4H PRN Administration Moderate Pain (4-6) Albuterol 2 puff 11/01/24 22:09 Albuterol Sulfate (*Sp) Aerosol 1 Puff INHALATION Q4-6H PRN shortness of breath or wheezing Aspirin 81 mg 11/02/24 09:00 11/07/24 09:14 Aspirin 81 Mg Enteric Tablet PO 81 mg DAILY BETTINA Administration Enoxaparin Sodium 40 mg 11/02/24 09:00 11/04/24 08:24 Enoxaparin 40 Mg/0.4 Ml Syringe SUB-Q 40 mg DAILY BETTINA Administration Fluticasone/Umeclidinium/Vilanterol 1 puff 11/02/24 09:00 11/06/24 08:20 Fluticasone/Umeclidin/Vilanter 100-62.5-25 Mcg Ellipta INHALATION 1 puff DAILY BETTINA Administration Folic Acid 1 mg 11/02/24 09:00 11/03/24 08:38 Folic Acid 1 Mg Tablet PO 1 mg DAILY BETTINA Administration Hydralazine HCl 5 mg 11/04/24 15:16 11/05/24 20:16 Hydralazine Hcl 20 Mg/Ml Vial IV PUSH 5 mg Q8H PRN Administration Blood Pressure - High Dextrose/Lactated Ringer's 1,000 mls @ 100 mls/hr 11/03/24 14:30 11/07/24 00:30 Dextrose 5%/Lactated Ringers IV CONT 100 mls/hr .Q10H BETTINA Administration Morphine Sulfate 4 mg 11/01/24 13:45 11/05/24 05:21 Morphine Sulfate (*Crx) 4 Mg/Ml Inj IV PUSH 4 mg Q4H PRN Administration Pain Rated 7-10 Morphine Sulfate 2 mg 11/03/24 18:37 11/06/24 05:33 Morphine Sulfate (*Crx) 2 Mg/Ml Inj IV PUSH 2 mg Q3H PRN Administration Pain Rated 4-6 Ondansetron HCl 4 mg 11/01/24 18:05 11/07/24 05:13 Ondansetron Inj 4 Mg/2 Ml Vial IV PUSH 4 mg Q4H PRN Administration Nausea And Vomiting Phenol 1 spray 11/04/24 11:58 11/04/24 13:37 Phenol/Sod Pheno [place] Garcia (*Bkc) MUCOUS MEM 1 spray PRN PRN Administration Sore Throat Radiology Results: ITS Impressions Chest X-Ray 11/01/24 10:18 Impression: 1: Progression of spiculated right upper lobe mass with associated calcifications. Cannot exclude malignancy. Recommend further evaluation with CT- guided biopsy or pet/CT scan. Abdomen/Pelvis CT 11/01/24 10:37 IMPRESSION: Multiple loops of dilated, fluid-filled, featureless small bowel with segments of mural thickening within portions of the the colon (which demonstrate diverticulosis). This constellation of findings suggest a possible ileus, rather than a discrete bowel obstruction. No fat plane between the uterus and the thickened loop of distal sigmoid colon with presacral induration in the left hemipelvis. Chest CT 11/01/24 11:15 IMPRESSION: 1. Mild to moderate emphysema with persistent tree-in-bud opacities in the dependent left lower lobe consistent with bronchiolitis. 2. No recent interval change in a 4.6 x 3.5 similar thick-walled centrally cavitary lesion at the right apex which is decreased in size and degree of wall thickening since 2022, likely scarring as sequela of chronic infection. Abdomen X-Ray 11/03/24 19:36 IMPRESSION: Shallow positioned NG tube, consider advancing 4 cm. Labs Labs: Laboratory Results - last 24 hr 11/06/24 11/07/24 16:18 05:32 Sodium 129 L 136 L Potassium 3.5 3.5 Chloride 95 L 95 L Carbon Dioxide 30 31 H Anion Gap 4 10 BUN 2 L < 2 L Creatinine 0.51 L 0.61 L Estim Creat Clear Calc 74 63 Estimated GFR > 60 > 60 Glucose 98 88 Calcium 9.1 9.8 Magnesium 1.7
[2024-11-07] MEDS: LACTATED RINGERS 1,000 ML 150 ML IV CONT (11:03)
--- NOTE | 2024-11-07 12:23 | SUR.OPER ---
EGD [id number]. Colonoscopy start time 1224.
--- NOTE | 2024-11-07 12:32 | SUR.OPER ---
Scope number 236 used for EGD. Scope number 226 initially used for colonoscopy, switched to an EGD scope [address] Jackson request.
--- NOTE | 2024-11-07 12:36 | S_PTH ---
PATIENT: Stefanie Raymundo LOC: [id number] U#:[id number] AGE/SX: 74/F ROOM: 316 RE11/02/[address]: Buck Rowan MD : 1950 BED: 02 DIS: 11/14/2024 SPEC #: [id number] RECD: 11/07/24 13:25 STATUS: MELBA SANTIAGO #: [id number] YUE: 11/07/24 12:[address]: Chilango Jackson DEPT: [facility] Surgical RECD BY: Cherelle Bautista ENTERED: 11/07/24 13:26 SP TYPE: Surgical OTHR DR: MD Andrew Eisenberg MD Edmundo A. Rodriguez-Frias, MD Bryan C. Siegfried, MD Tissues: A - Gastric Biopsy B - Gastric Biopsy Procedures: Hematoxylin and Eosin Stain Gross and Microscopic Level 4
--- NOTE | 2024-11-07 12:44 | WPDGIPROGNO ---
Progress Note: A&P Assessment and Plan (1) Ileus: Code(s): K56.7 - Ileus, unspecified Status: Acute Assessment and Plan: See sigmoidoscopy report. Full colonoscopy could not be performed probably due to severe angulation secondary to adhesions from previous surgery. Air contrast barium enema ordered to clarify and define sigmoid anatomy. Subjective Date/time seen: 11/07/24 12:44 Objective Data Vital Signs Vital Signs: Vital Signs - 24 hr 11/06/24 14:00 11/06/24 21:00 11/06/24 21:07 Temperature 98.0 F 97.5 F L Pulse Rate 72 77 Respiratory Rate 18 14 Blood Pressure 143/72 H 164/78 H Pulse Oximetry 96 97 94 Oxygen Delivery Nasal Cannula Oxygen Flow Rate 2 11/07/24 05:25 11/07/24 09:15 11/07/24 10:45 Temperature 98.1 F 97.7 F Pulse Rate 93 83 Respiratory Rate 17 16 Blood Pressure 127/76 152/73 H Pulse Oximetry 100 96 Oxygen Delivery Room Air Room Air Oxygen Flow Rate 11/07/24 12:37 Temperature Pulse Rate 90 Respiratory Rate 20 Blood Pressure 150/91 H Pulse Oximetry 100 Oxygen Delivery Room Air Oxygen Flow Rate Intake/Output Intake/Output: Intake & Output 11/04/24 11/05/24 11/06/24 11/07/24 23:59 23:59 23:59 23:59 Intake Total 1788.3 2550 1584 100 Output Total 300 50 800 Balance 1488.3 2500 784 100 Meds/Results Medications: Active Medications Generic Name Dose Route Start Last Admin Trade Name Freq PRN Reason Stop Dose Admin Acetaminophen 650 mg 11/01/24 17:53 Acetaminophen 325 Mg Tablet PO Q4H PRN Mild Pain (1-3) or Fever Hydrocodone Bitart/Acetaminophen 1 tab 11/01/24 17:53 11/03/24 12:41 Hydrocodone/Acetaminophen (*Crx) 5-325 Mg Tablet PO 1 tab Q4H PRN Administration Moderate Pain (4-6) Albuterol 2 puff 11/01/24 22:09 Albuterol Sulfate (*Sp) Aerosol 1 Puff INHALATION Q4-6H PRN shortness of breath or wheezing Aspirin 81 mg 11/02/24 09:00 11/07/24 09:14 Aspirin 81 Mg Enteric Tablet PO 81 mg DAILY BETTINA Administration Enoxaparin Sodium 40 mg 11/02/24 09:00 11/04/24 08:24 Enoxaparin 40 Mg/0.4 Ml Syringe SUB-Q 40 mg DAILY BETTINA Administration Fluticasone/Umeclidinium/Vilanterol 1 puff 11/02/24 09:00 11/06/24 08:20 Fluticasone/Umeclidin/Vilanter 100-62.5-25 Mcg Ellipta INHALATION 1 puff DAILY BETTINA Administration Folic Acid 1 mg 11/02/24 09:00 11/03/24 08:38 Folic Acid 1 Mg Tablet PO 1 mg DAILY BETTINA Administration Hydralazine HCl 5 mg 11/04/24 15:16 11/05/24 20:16 Hydralazine Hcl 20 Mg/Ml Vial IV PUSH 5 mg Q8H PRN Administration Blood Pressure - High Dextrose/Lactated Ringer's 1,000 mls @ 100 mls/hr 11/03/24 14:30 11/07/24 00:30 Dextrose 5%/Lactated Ringers IV CONT 100 mls/hr .Q10H BETTINA Administration Lactated Ringer's 1,000 mls @ 150 mls/hr 11/07/24 11:00 11/07/24 12:37 Lr - Lactated Ringers Iv IV CONT 150 mls/hr .Q6H40M BETTINA Infusion Morphine Sulfate 4 mg 11/01/24 13:45 11/05/24 05:21 Morphine Sulfate (*Crx) 4 Mg/Ml Inj IV PUSH 4 mg Q4H PRN Administration Pain Rated 7-10 Morphine Sulfate 2 mg 11/03/24 18:37 11/06/24 05:33 Morphine Sulfate (*Crx) 2 Mg/Ml Inj IV PUSH 2 mg Q3H PRN Administration Pain Rated 4-6 Ondansetron HCl 4 mg 11/01/24 18:05 11/07/24 05:13 Ondansetron Inj 4 Mg/2 Ml Vial IV PUSH 4 mg Q4H PRN Administration Nausea And Vomiting Phenol 1 spray 11/04/24 11:58 11/04/24 13:37 Phenol/Sod Pheno [place] Garcia (*Bkc) MUCOUS MEM 1 spray PRN PRN Administration Sore Throat Radiology Results: ITS Impressions Chest X-Ray 11/01/24 10:18 Impression: 1: Progression of spiculated right upper lobe mass with associated calcifications. Cannot exclude malignancy. Recommend further evaluation with CT-guided biopsy or pet/CT scan. Abdomen/Pelvis CT 11/01/24 10:37 IMPRESSION: Multiple loops of dilated, fluid-filled, featureless small bowel with segments of mural thickening within portions of the the colon (which demonstrate diverticulosis). This constellation of findings suggest a possible ileus, rather than a discrete bowel obstruction. No fat plane between the uterus and the thickened loop of distal sigmoid colon with presacral induration in the left hemipelvis. Chest CT 11/01/24 11:15 IMPRESSION: 1. Mild to moderate emphysema with persistent tree-in-bud opacities in the dependent left lower lobe consistent with bronchiolitis. 2. No recent interval change in a 4.6 x 3.5 similar thick-walled centrally cavitary lesion at the right apex which is decreased in size and degree of wall thickening since 2022, likely scarring as sequela of chronic infection. Abdomen X-Ray 11/03/24 19:36 IMPRESSION: Shallow positioned NG tube, consider advancing 4 cm. Labs Labs: Laboratory Results - last 24 hr 11/06/24 11/07/24 16:18 05:32 Sodium 129 L 136 L Potassium 3.5 3.5 Chloride 95 L 95 L Carbon Dioxide 30 31 H Anion Gap 4 10 BUN 2 L < 2 L Creatinine 0.51 L 0.61 L Estim Creat Clear Calc 74 63 Estimated GFR > 60 > 60 Glucose 98 88 Calcium 9.1 9.8 Magnesium 1.7
--- NOTE | 2024-11-07 15:30 | PM.IMPN ---
Progress Note: A&P Assessment and Plan (1) Ileus: Code(s): K56.7 - Ileus, unspecified Status: Acute (2) GOYO (acute kidney injury): Code(s): N17.9 - Acute kidney failure, unspecified Status: Acute (3) Leukocytosis: Code(s): D72.829 - Elevated white blood cell count, unspecified Status: Acute Plan 74-year-old female with history of hereditary hemochromatosis, cirrhosis, COPD, active nicotine abuse, prior alcohol use disorder, history of bowel resection, hypertension, nocturnal hypoxemia with 2 L nasal cannula at night followed by Dr. Jefferson presents to [facility] ER on 11/01/2024 with complaint of abdominal pain. She has been having loose bowel movements and nausea. She was just discharged from [facility] on 10/27/2024 with colitis, bowel obstruction, pneumonia, UTI. ER workup revealed leukocytosis, serum creatinine 1.25, contaminated urinalysis, CT abdomen pelvis reveals multiple loops of dilated fluid-filled featureless small bowel with segments of mural thickening within portions of the colon, suggestive of ileus. Chest CT demonstrating moderate emphysema with persistent tree-in-bud opacities in the dependent left lower lobe consistent with bronchiolitis. Chronic cavitary lesion at right apex peer She was given IV fluids and Zosyn. C diff was negative. ---- NG tube placed on 11/03/2024 for GI decompression. NG tube removed on 11/05/2024. Underwent sigmoidoscopy and endoscopy on 11/07/2024. Plan for sigmoid series tomorrow. Appreciate GI recommendations. Clear liquid diet. Zosyn discontinued, follow-up blood and stool cultures. Chloraseptic spray for sore throat. Blood pressure improved on 11/07/2024. Hydralazine p.r.n. for SBP greater than 180. Hypokalemia resolved on 11/07/2024. Continue to trend daily. Patient wishes to be full code. Lovenox 40 mg subQ q.day. clear liquid diet. Subjective Date/time seen: 11/07/24 15:30 Interval history: She reports feeling significantly better. She looks very comfortable, energetic. She wants a full diet. Denies nausea vomiting or diarrhea. No abdominal pain. Abdominal distension is gone. ?I do not look anymore ? Review of Systems Review of Systems: All systems reviewed & are unremarkable except as noted in HPI and below (Subjective) Exam Const: General: comfortable and no acute distress Other: A&O x3 HENMT: Mouth: Yes moist mucous membranes Eyes: Pupils: Equal, round and reactive pupils present Neck: Neck: supple Resp: Effort & Inspection: normal respiratory effort Auscultation: clear to auscultation bilaterally Cardio: Rate: regular rate Rhythm: regular rhythm GI: Inspection: non-distended GI Palp: Yes Soft to palpation Neuro: Motor exam (neuro): 5/5 motor strength present throughout Extrem: General: no edema Objective Data Vital Signs Vital Signs: Vital Signs - 24 hr 11/06/24 21:00 11/06/24 21:07 11/07/24 05:25 Temperature 97.5 F L 98.1 F Pulse Rate 77 93 Respiratory Rate 14 17 Blood Pressure 164/78 H 127/76 Pulse Oximetry 97 94 100 Oxygen Delivery Nasal Cannula Oxygen Flow Rate 2 11/07/24 09:15 11/07/24 10:45 11/07/24 12:37 Temperature 97.7 F Pulse Rate 83 90 Respiratory Rate 16 20 Blood Pressure 152/73 H 150/91 H Pulse Oximetry 96 100 Oxygen Delivery Room Air Room Air Room Air Oxygen Flow Rate 11/07/24 12:47 11/07/24 12:57 11/07/24 13:47 Temperature 97.1 F L Pulse Rate 81 85 72 Respiratory Rate 20 20 18 Blood Pressure 153/86 H 160/85 H 150/71 H Pulse Oximetry 93 97 93 Oxygen Delivery Room Air Room Air Oxygen Flow Rate Intake/Output Intake/Output: Intake & Output 11/04/24 11/05/24 11/06/24 11/07/24 23:59 23:59 23:59 23:59 Intake Total 1788.3 2550 1584 300 Output Total 300 50 800 Balance 1488.3 2500 784 300 Meds/Results Medications: Active Medications Generic Name Dose Route Start Last Admin Trade Name Freq PRN Reason Stop Dose Admin Acetaminophen 650 mg 11/01/24 17:53 Acetaminophen 325 Mg Tablet PO Q4H PRN Mild Pain (1-3) or Fever Hydrocodone Bitart/Acetaminophen 1 tab 11/01/24 17:53 11/03/24 12:41 Hydrocodone/Acetaminophen (*Crx) 5-325 Mg Tablet PO 1 tab Q4H PRN Administration Moderate Pain (4-6) Albuterol 2 puff 11/01/24 22:09 Albuterol Sulfate (*Sp) Aerosol 1 Puff INHALATION Q4-6H PRN shortness of breath or wheezing Aspirin 81 mg 11/02/24 09:00 11/07/24 09:14 Aspirin 81 Mg Enteric Tablet PO 81 mg DAILY BETTINA Administration Enoxaparin Sodium 40 mg 11/02/24 09:00 11/04/24 08:24 Enoxaparin 40 Mg/0.4 Ml Syringe SUB-Q 40 mg DAILY BETTINA Administration Fluticasone/Umeclidinium/Vilanterol 1 puff 11/02/24 09:00 11/06/24 08:20 Fluticasone/Umeclidin/Vilanter 100-62.5-25 Mcg Ellipta INHALATION 1 puff DAILY BETTINA Administration Folic Acid 1 mg 11/02/24 09:00 11/03/24 08:38 Folic Acid 1 Mg Tablet PO 1 mg DAILY BETTINA Administration Hydralazine HCl 5 mg 11/04/24 15:16 11/05/24 20:16 Hydralazine Hcl 20 Mg/Ml Vial IV PUSH 5 mg Q8H PRN Administration Blood Pressure - High Dextrose/Lactated Ringer's 1,000 mls @ 100 mls/hr 11/03/24 14:30 11/07/24 00:30 Dextrose 5%/Lactated Ringers IV CONT 100 mls/hr .Q10H BETTINA Administration Lactated Ringer's 1,000 mls @ 150 mls/hr 11/07/24 11:00 11/07/24 13:15 Lr - Lactated Ringers Iv IV CONT Infused .Q6H40M BETTINA Infusion Morphine Sulfate 4 mg 11/01/24 13:45 11/05/24 05:21 Morphine Sulfate (*Crx) 4 Mg/Ml Inj IV PUSH 4 mg Q4H PRN Administration Pain Rated 7-10 Morphine Sulfate 2 mg 11/03/24 18:37 11/06/24 05:33 Morphine Sulfate (*Crx) 2 Mg/Ml Inj IV PUSH 2 mg Q3H PRN Administration Pain Rated 4-6 Ondansetron HCl 4 mg 11/01/24 18:05 11/07/24 05:13 Ondansetron Inj 4 Mg/2 Ml Vial IV PUSH 4 mg Q4H PRN Administration Nausea And Vomiting Phenol 1 spray 11/04/24 11:58 11/04/24 13:37 Phenol/Sod Pheno [place] Garcia (*Bkc) MUCOUS MEM 1 spray PRN PRN Administration Sore Throat Radiology Results: ITS Impressions Chest X-Ray 11/01/24 10:18 Impression: 1: Progression of spiculated right upper lobe mass with associated calcifications. Cannot exclude malignancy. Recommend further evaluation with CT-guided biopsy or pet/CT scan. Abdomen/Pelvis CT 11/01/24 10:37 IMPRESSION: Multiple loops of dilated, fluid-filled, featureless small bowel with segments of mural thickening within portions of the the colon (which demonstrate diverticulosis). This constellation of findings suggest a possible ileus, rather than a discrete bowel obstruction. No fat plane between the uterus and the thickened loop of distal sigmoid colon with presacral induration in the left hemipelvis. Chest CT 11/01/24 11:15 IMPRESSION: 1. Mild to moderate emphysema with persistent tree-in-bud opacities in the dependent left lower lobe consistent with bronchiolitis. 2. No recent interval change in a 4.6 x 3.5 similar thick-walled centrally cavitary lesion at the right apex which is decreased in size and degree of wall thickening since 2022, likely scarring as sequela of chronic infection. Abdomen X-Ray 11/07/24 15:01 Impression: 1: Improved small bowel dilation compared with 11/03/2024, likely resolving ileus or partial obstruction. Labs Labs: Laboratory Results - last 24 hr 11/06/24 11/07/24 16:18 05:32 Sodium 129 L 136 L Potassium 3.5 3.5 Chloride 95 L 95 L Carbon Dioxide 30 31 H Anion Gap 4 10 BUN 2 L < 2 L Creatinine 0.51 L 0.61 L Estim Creat Clear Calc 74 63 Estimated GFR > 60 > 60 Glucose 98 88 Calcium 9.1 9.8 Magnesium 1.7
--- NOTE | 2024-11-08 01:06 | PC.NURSE ---
pt refused connecting to IVF as ordered, stated that she drinks enough and would like to be disconnected. [employer] rn peritoneal dialysis Juan Cabrera was notified.
[2024-11-08 04:53] VITALS: BP 122/71; PULSE 69; RESP 16; TEMP 36.8; O2SAT 100
[2024-11-08 06:15] LABS: Hematocrit 34.5 % (37.0-47.0); Hemoglobin 11.2 g/dL (12.0-15.0); Mean Corpuscular HGB Conc 32.5 g/dl (32-36); Mean Corpuscular Hemoglobin 31.5 pg (26-34); Mean Corpuscular Volume 96.9 fl (80-100); Platelet Count Result 368 k/mm3 (150-375); Red Blood Count 3.56 M/mm3 (4.2-5.4); White Blood Count 7.4 K/mm3 (4.5-10.0)
[2024-11-08 06:31] LABS: Anion Gap 2 mmol/L (4-12); Calcium 8.4 mg/dL (8.4-10.2); Carbon Dioxide 31 mmol/L (22-30); Chloride 98 mmol/L (98-107); Estimated CRCL calculation 70 ml/min; Estimated Glomerular Filt Rate > 60; Glucose 76 mg/dL (65-110); Magnesium 1.5 mg/dL (1.6-2.3); Potassium 3.3 mmol/L (3.4-5.0); Sodium 131 mmol/L (137-145)
[2024-11-08] MEDS: DEXTROSE 5%/LACTATED RINGERS 1,000 ML 100 ML IV CONT (06:42)
[2024-11-08 06:46] LABS: Blood Urea Nitrogen < 2 mg/dL (7-17)
[2024-11-08] MEDS: FLUTICASONE/UMECLIDIN/VILANTER 100-62.5-25 MCG ELLIPTA 1 PUFF INHALATION (07:51)
[2024-11-08 07:53] VITALS: PULSE 67; RESP 18
--- NOTE | 2024-11-08 09:27 | WPDANESPN ---
Anes - Prog Note Post-Op Date/Time: 11/08/24 09:27 Cardiovascular status: normal Respiratory status: normal Airway patency: baseline Mental status: baseline Post-Op hydration status: normal Vital Signs: Last Vital Signs Temp 36.8 C 11/08/24 04:53 Pulse 67 11/08/24 07:53 Resp 18 11/08/24 07:53 BP 122/71 11/08/24 04:53 Pulse Ox 100 11/08/24 04:53 O2 Del Method Room Air 11/07/24 20:00 O2 Flow Rate 2 11/06/24 21:00 Pain Score (VAS): 0 I/O: Intake & Output 11/07/24 11/08/24 11/08/24 23:59 07:59 15:59 Intake Total 240 350 Output Total 1 Balance 240 349 Laboratory Tests 11/08/24 05:50 11/08/24 05:50 11/08/24 05:50 WBC 7.4 RBC 3.56 L Hgb 11.2 L Hct 34.5 L MCV 96.9 MCH 31.5 MCHC 32.5 RDW 14.4 Plt Count 368 MPV 9.4 Sodium 131 L Potassium 3.3 L Chloride 98 Carbon Dioxide 31 H Anion Gap 2 L BUN < 2 L Creatinine 0.54 L Estim Creat Clear Calc 70 Estimated GFR > 60 Glucose 76 Calcium 8.4 Magnesium 1.5 L Microbiology 11/01/24 12:36 Blood Blood Culture - Final 11/01/24 12:24 Blood Blood Culture - Final Post-procedural complaints: none Patient Feedback: Patient satisfied with anesthetic care.
--- NOTE | 2024-11-08 12:59 | PCDIET ---
Nutrition note: Length of stay screen today. Pt still NPO having had EGD/colonoscopy. No report or diet advancement yet. Follow up in 1 day to further assess.
[2024-11-08 14:00] VITALS: BP 128/55; PULSE 84; RESP 17; TEMP 36.6; O2SAT 95
--- NOTE | 2024-11-08 15:13 | PM.PNGS ---
Progress Note: A&P Assessment and Plan (1) Acute colitis: Code(s): K52.9 - Noninfective gastroenteritis and colitis, unspecified Status: Acute Assessment and Plan: EGD was performed today and demonstrated a small hiatal hernia and reflux esophagitis. Colonoscopy was attempted, but the scope could not be passed beyond sigmoid due to severe angulation. Because of this, a barium enema was obtained. This showed a high-grade stricture in the distal sigmoid colon. The study was terminated prior to contrast extending beyond the site of the stricture due to patient discomfort and recurrent expulsion of the enema catheter pulled due to back pressure resulting from the obstruction. Discussed with patient today that she will likely need a surgery in the future to resolve this. She is compliant. Will discuss with surgeon regarding probable surgery this weekend or early next week. In the interim, patient put back on a liquid diet. Advance as tolerated. May consider getting a CEA level, as patient does have a family history of colon cancer. (2) Ileus: Code(s): K56.7 - Ileus, unspecified Status: Acute Assessment and Plan: Resolved. Plan Discussed patient's case and plan of care with Dr. Perkins. Subjective Subjective Date/Time Seen: 11/08/24 15:13 Patient reports: no new complaints Interval history: No new complaints from patient, aside from her being hungry. Barium enema today. WBC normal. VSS. BM+ Exam Const: General: comfortable and no acute distress GI: Inspection: non-distended GI Palp: Yes Soft to palpation, No Tenderness to palpation present (GI), No Guarding due to palpation present (GI) and No Hernia present Objective Data Vital Signs Vital Signs: Vital Signs - 24 hr 11/07/24 20:00 11/07/24 20:24 11/08/24 04:53 Temperature 98.6 F 98.2 F Pulse Rate 74 74 69 Respiratory Rate 16 16 16 Blood Pressure 135/76 122/71 Pulse Oximetry 95 95 100 Oxygen Delivery Room Air 11/08/24 07:53 11/08/24 08:00 11/08/24 14:00 Temperature 97.8 F Pulse Rate 67 84 Respiratory Rate 18 17 Blood Pressure 128/55 L Pulse Oximetry 95 Oxygen Delivery Room Air Intake/Output Intake/Output: Intake & Output 11/05/24 11/06/24 11/07/24 11/08/24 23:59 23:59 23:59 23:59 Intake Total 2550 1584 1540 350 Output Total 50 800 1 Balance 2500 784 1540 349 Meds/Results Medications: Active Medications Generic Name Dose Route Start Last Admin Trade Name Freq PRN Reason Stop Dose Admin Acetaminophen 650 mg 11/01/24 17:53 Acetaminophen 325 Mg Tablet PO Q4H PRN Mild Pain (1-3) or Fever Hydrocodone Bitart/Acetaminophen 1 tab 11/01/24 17:53 11/03/24 12:41 Hydrocodone/Acetaminophen (*Crx) 5-325 Mg Tablet PO 1 tab Q4H PRN Administration Moderate Pain (4-6) Albuterol 2 puff 11/01/24 22:09 Albuterol Sulfate (*Sp) Aerosol 1 Puff INHALATION Q4-6H PRN shortness of breath or wheezing Aspirin 81 mg 11/02/24 09:00 11/08/24 08:22 Aspirin 81 Mg Enteric Tablet PO Not Given DAILY [facility] Enoxaparin Sodium 40 mg 11/02/24 09:00 11/08/24 08:22 Enoxaparin 40 Mg/0.4 Ml Syringe SUB-Q Not Given DAILY [facility] Fluticasone/Umeclidinium/Vilanterol 1 puff 11/02/24 09:00 11/08/24 07:51 Fluticasone/Umeclidin/Vilanter 100-62.5-25 Mcg Ellipta INHALATION 1 puff DAILY BETTINA Administration Folic Acid 1 mg 11/02/24 09:00 11/08/24 08:22 Folic Acid 1 Mg Tablet PO Not Given DAILY [facility] Hydralazine HCl 5 mg 11/04/24 15:16 11/05/24 20:16 Hydralazine Hcl 20 Mg/Ml Vial IV PUSH 5 mg Q8H PRN Administration Blood Pressure - High Dextrose/Lactated Ringer's 1,000 mls @ 100 mls/hr 11/03/24 14:30 11/08/24 06:42 Dextrose 5%/Lactated Ringers IV CONT 100 mls/hr .Q10H BETTINA Administration Morphine Sulfate 4 mg 11/01/24 13:45 11/05/24 05:21 Morphine Sulfate (*Crx) 4 Mg/Ml Inj IV PUSH 4 mg Q4H PRN Administration Pain Rated 7-10 Morphine Sulfate 2 mg 11/03/24 18:37 11/06/24 05:33 Morphine Sulfate (*Crx) 2 Mg/Ml Inj IV PUSH 2 mg Q3H PRN Administration Pain Rated 4-6 Ondansetron HCl 4 mg 11/01/24 18:05 11/07/24 05:13 Ondansetron Inj 4 Mg/2 Ml Vial IV PUSH 4 mg Q4H PRN Administration Nausea And Vomiting Phenol 1 spray 11/04/24 11:58 11/04/24 13:37 Phenol/Sod Pheno [place] Garcia (*Bkc) MUCOUS MEM 1 spray PRN PRN Administration Sore Throat Radiology Results: ITS Impressions Chest X-Ray 11/01/24 10:18 Impression: 1: Progression of spiculated right upper lobe mass with associated calcifications. Cannot exclude malignancy. Recommend further evaluation with CT-guided biopsy or pet/CT scan. Abdomen/Pelvis CT 11/01/24 10:37 IMPRESSION: Multiple loops of dilated, fluid-filled, featureless small bowel with segments of mural thickening within portions of the the colon (which demonstrate diverticulosis). This constellation of findings suggest a possible ileus, rather than a discrete bowel obstruction. No fat plane between the uterus and the thickened loop of distal sigmoid colon with presacral induration in the left hemipelvis. Chest CT 11/01/24 11:15 IMPRESSION: 1. Mild to moderate emphysema with persistent tree-in-bud opacities in the dependent left lower lobe consistent with bronchiolitis. 2. No recent interval change in a 4.6 x 3.5 similar thick-walled centrally cavitary lesion at the right apex which is decreased in size and degree of wall thickening since 2022, likely scarring as sequela of chronic infection. Abdomen X-Ray 11/07/24 15:01 Impression: 1: Improved small bowel dilation compared with 11/03/2024, likely resolving ileus or partial obstruction. Barium Enema 11/08/24 12:44 IMPRESSION: 1. Contrast unable to be passage beyond a high-grade stricture in the distal sigmoid colon which could be due to inflammation or scarring related to reported recent colitis/diverticulitis but which also raises significant concern for malignancy. Could consider repeat single contrast water-soluble enema following sufficient time to allow for resolution of any potential contributing inflammation. Labs Labs: Laboratory Results - last 24 hr 11/08/24 11/08/24 05:50 09:36 WBC 7.4 RBC 3.56 L Hgb 11.2 L Hct 34.5 L MCV 96.9 MCH 31.5 MCHC 32.5 RDW 14.4 Plt Count 368 MPV 9.4 Sodium 131 L Potassium 3.3 L Chloride 98 Carbon Dioxide 31 H Anion Gap 2 L BUN < 2 L Creatinine 0.54 L Estim Creat Clear Calc 70 Estimated GFR > 60 Glucose 76 POC Capillary Glucose 91 Calcium 8.4 Magnesium 1.5 L
--- NOTE | 2024-11-08 15:31 | PC.NURSE ---
Patient very tearful about having clear liquid diet tray whenever regular diet was ordered originally. Abigail Bowles put in orders for clear liquid, cancelling regular diet. Orders still in to advance diet as tolerated. Patient tolerated clear liquid tray at 15:30. Pt. asking to be advanced to regular diet and is aware to take it easy. Orders in to advance diet as tolerated to regular and per surgery note advance diet as tolerated. Orders being put in for regular diet now.
--- NOTE | 2024-11-08 16:53 | P.PNIM_ITS ---
Progress Note: A&P Assessment and Plan (1) Ileus: Code(s): K56.7 - Ileus, unspecified Status: Acute (2) GOYO (acute kidney injury): Code(s): N17.9 - Acute kidney failure, unspecified Status: Acute (3) Leukocytosis: Code(s): D72.829 - Elevated white blood cell count, unspecified Status: Acute (4) Reflux esophagitis: Code(s): K21.00 - Gastro-esophageal reflux disease with esophagitis, without bleeding Status: Acute Plan 74-year-old female with history of hereditary hemochromatosis, cirrhosis, COPD, active nicotine abuse, prior alcohol use disorder, history of bowel resection, hypertension, nocturnal hypoxemia with 2 L nasal cannula at night followed by Dr. Jefferson presents to [facility] ER on 11/01/2024 with complaint of abdominal pain. She has been having loose bowel movements and nausea. She was just discharged from [facility] on 10/27/2024 with colitis, bowel obstruction, pneumonia, UTI. ER workup revealed leukocytosis, serum creatinine 1.25, contaminated urinalysis, CT abdomen pelvis reveals multiple loops of dilated fluid-filled featureless small bowel with segments of mural thickening within portions of the colon, suggestive of ileus. Chest CT demonstrating moderate emphysema with persistent tree-in-bud opacities in the dependent left lower lobe consistent with bronchiolitis. Chronic cavitary lesion at right apex peer She was given IV fluids and Zosyn. C diff was negative. ---- NG tube placed on 11/03/2024 for GI decompression. NG tube removed on 11/05/2024. Underwent sigmoidoscopy and endoscopy on 11/07/2024. EGD reveals a small hiatal hernia at the GE junction, reflux esophagitis grade A, normal stomach, and duodenum. Four biopsies taken from the antrum and body. Colonoscopy incomplete as there was severe angulation 35 cm above the anal verge that precluded any passage. Barium enema performed on 11/08/2024: Contrast unable to passed through the high-grade stricture in the distal sigmoid colon. General surgery consulted. Decision making ongoing. Zosyn discontinued, follow-up blood and stool cultures. Chloraseptic spray for sore throat. Blood pressure improved on 11/07/2024. Hydralazine p.r.n. for SBP greater than 180. Patient wishes to be full code. Lovenox 40 mg subQ q.day. clear liquid diet. Subjective Date/time seen: 11/08/24 16:53 Interval history: No acute events overnight. Patient is very hungry and wants to eat. She denies any nausea vomiting abdominal pain or diarrhea. Review of Systems Review of Systems: All systems reviewed & are unremarkable except as noted in HPI and below (Subjective) Exam Const: General: comfortable and no acute distress Other: A&O x3 HENMT: Mouth: Yes moist mucous membranes Eyes: Pupils: Equal, round and reactive pupils present Neck: Neck: supple Resp: Effort & Inspection: normal respiratory effort Auscultation: clear to auscultation bilaterally Cardio: Rate: regular rate Rhythm: regular rhythm GI: Inspection: non-distended GI Palp: Yes Soft to palpation Neuro: Motor exam (neuro): 5/5 motor strength present throughout Extrem: General: no edema Objective Data Vital Signs Vital Signs: Vital Signs - 24 hr 11/07/24 20:00 11/07/24 20:24 11/08/24 04:53 Temperature 98.6 F 98.2 F Pulse Rate 74 74 69 Respiratory Rate 16 16 16 Blood Pressure 135/76 122/71 Pulse Oximetry 95 95 100 Oxygen Delivery Room Air 11/08/24 07:53 11/08/24 08:00 11/08/24 14:00 Temperature 97.8 F Pulse Rate 67 84 Respiratory Rate 18 17 Blood Pressure 128/55 L Pulse Oximetry 95 Oxygen Delivery Room Air Intake/Output Intake/Output: Intake & Output 11/05/24 11/06/24 11/07/24 11/08/24 23:59 23:59 23:59 23:59 Intake Total 2550 1584 1540 1070 Output Total 50 800 1 Balance 2500 784 1540 1069 Meds/Results Medications: Active Medications Generic Name Dose Route Start Last Admin Trade Name Freq PRN Reason Stop Dose Admin Acetaminophen 650 mg 11/01/24 17:53 Acetaminophen 325 Mg Tablet PO Q4H PRN Mild Pain (1-3) or Fever Hydrocodone Bitart/Acetaminophen 1 tab 11/01/24 17:53 11/03/24 12:41 Hydrocodone/Acetaminophen (*Crx) 5-325 Mg Tablet PO 1 tab Q4H PRN Administration Moderate Pain (4-6) Albuterol 2 puff 11/01/24 22:09 Albuterol Sulfate (*Sp) Aerosol 1 Puff INHALATION Q4-6H PRN shortness of breath or wheezing Aspirin 81 mg 11/02/24 09:00 11/08/24 08:22 Aspirin 81 Mg Enteric Tablet PO Not Given DAILY [facility] Enoxaparin Sodium 40 mg 11/02/24 09:00 11/08/24 08:22 Enoxaparin 40 Mg/0.4 Ml Syringe SUB-Q Not Given DAILY [facility] Fluticasone/Umeclidinium/Vilanterol 1 puff 11/02/24 09:00 11/08/24 07:51 Fluticasone/Umeclidin/Vilanter 100-62.5-25 Mcg Ellipta INHALATION 1 puff DAILY BETTINA Administration Folic Acid 1 mg 11/02/24 09:00 11/08/24 08:22 Folic Acid 1 Mg Tablet PO Not Given DAILY [facility] Hydralazine HCl 5 mg 11/04/24 15:16 11/05/24 20:16 Hydralazine Hcl 20 Mg/Ml Vial IV PUSH 5 mg Q8H PRN Administration Blood Pressure - High Dextrose/Lactated Ringer's 1,000 mls @ 100 mls/hr 11/03/24 14:30 11/08/24 06:42 Dextrose 5%/Lactated Ringers IV CONT 100 mls/hr .Q10H BETTINA Administration Magnesium Sulfate/Dextrose 1 gm in 100 mls @ 100 mls/hr 11/08/24 16:00 Magnesium Sulf 1 Gm/D5w 100 Ml IVPB 11/08/24 16:59 ONCE ONE Morphine Sulfate 4 mg 11/01/24 13:45 11/05/24 05:21 Morphine Sulfate (*Crx) 4 Mg/Ml Inj IV PUSH 4 mg Q4H PRN Administration Pain Rated 7-10 Morphine Sulfate 2 mg 11/03/24 18:37 11/06/24 05:33 Morphine Sulfate (*Crx) 2 Mg/Ml Inj IV PUSH 2 mg Q3H PRN Administration Pain Rated 4-6 Ondansetron HCl 4 mg 11/01/24 18:05 11/07/24 05:13 Ondansetron Inj 4 Mg/2 Ml Vial IV PUSH 4 mg Q4H PRN Administration Nausea And Vomiting Phenol 1 spray 11/04/24 11:58 11/04/24 13:37 Phenol/Sod Pheno [place] Garcia (*Bkc) MUCOUS MEM 1 spray PRN PRN Administration Sore Throat Potassium Chloride 20 meq 11/08/24 17:00 Potassium Chloride 20 Meq Er Tablet PO 11/08/24 17:01 ONCE ONE Radiology Results: ITS Impressions Chest X-Ray 11/01/24 10:18 Impression: 1: Progression of spiculated right upper lobe mass with associated calcifications. Cannot exclude malignancy. Recommend further evaluation with CT- guided biopsy or pet/CT scan. Abdomen/Pelvis CT 11/01/24 10:37 IMPRESSION: Multiple loops of dilated, fluid-filled, featureless small bowel with segments of mural thickening within portions of the the colon (which demonstrate diverticulosis). This constellation of findings suggest a possible ileus, rather than a discrete bowel obstruction. No fat plane between the uterus and the thickened loop of distal sigmoid colon with presacral induration in the left hemipelvis. Chest CT 11/01/24 11:15 IMPRESSION: 1. Mild to moderate emphysema with persistent tree-in-bud opacities in the dependent left lower lobe consistent with bronchiolitis. 2. No recent interval change in a 4.6 x 3.5 similar thick-walled centrally cavitary lesion at the right apex which is decreased in size and degree of wall thickening since 2022, likely scarring as sequela of chronic infection. Abdomen X-Ray 11/07/24 15:01 Impression: 1: Improved small bowel dilation compared with 11/03/2024, likely resolving ileus or partial obstruction. Barium Enema 11/08/24 12:44 IMPRESSION: 1. Contrast unable to be passage beyond a high-grade stricture in the distal sigmoid colon which could be due to inflammation or scarring related to reported recent colitis/diverticulitis but which also raises significant concern for malignancy. Could consider repeat single contrast water-soluble enema following sufficient time to allow for resolution of any potential contributing inflammation. Labs Labs: Laboratory Results - last 24 hr 11/08/24 11/08/24 05:50 09:36 WBC 7.4 RBC 3.56 L Hgb 11.2 L Hct 34.5 L MCV 96.9 MCH 31.5 MCHC 32.5 RDW 14.4 Plt Count 368 MPV 9.4 Sodium 131 L Potassium 3.3 L Chloride 98 Carbon Dioxide 31 H Anion Gap 2 L BUN < 2 L Creatinine 0.54 L Estim Creat Clear Calc 70 Estimated GFR > 60 Glucose 76 POC Capillary Glucose 91 Calcium 8.4 Magnesium 1.5 L
[2024-11-08] MEDS: MAGNESIUM SULF 1 GM/D5W 100 ML 1 GM/100 ML BAG IVPB (16:59)
[2024-11-08] MEDS: POTASSIUM CHLORIDE 20 MEQ ER TABLET PO (16:59)
[2024-11-08] MEDS: PANTOPRAZOLE 40 MG TABLET PO (17:38)
[2024-11-08 21:34] VITALS: BP 142/67; PULSE 63; RESP 14; TEMP 36.3; O2SAT 98
[2024-11-09 06:00] VITALS: BP 171/83; PULSE 73; RESP 14; TEMP 36.5; O2SAT 95
[2024-11-09 06:41] LABS: Hematocrit 35.6 % (37.0-47.0); Hemoglobin 11.7 g/dL (12.0-15.0); Mean Corpuscular HGB Conc 32.9 g/dl (32-36); Mean Corpuscular Hemoglobin 31.9 pg (26-34); Mean Corpuscular Volume 97.0 fl (80-100); Platelet Count Result 387 k/mm3 (150-375); Red Blood Count 3.67 M/mm3 (4.2-5.4); White Blood Count 7.3 K/mm3 (4.5-10.0)
[2024-11-09 07:06] LABS: Anion Gap 7 mmol/L (4-12); Calcium 8.9 mg/dL (8.4-10.2); Carbon Dioxide 28 mmol/L (22-30); Chloride 102 mmol/L (98-107); Estimated CRCL calculation 67 ml/min; Estimated Glomerular Filt Rate > 60; Glucose 68 mg/dL (65-110); Magnesium 1.6 mg/dL (1.6-2.3); Potassium 3.6 mmol/L (3.4-5.0); Sodium 137 mmol/L (137-145)
--- NOTE | 2024-11-09 07:23 | WPDGIPROGNO ---
Progress Note: A&P Assessment and Plan (1) Colonic obstruction: Code(s): K56.609 - Unspecified intestinal obstruction, unspecified as to partial versus complete obstruction Status: Acute Assessment and Plan: according to the radiology recommendation based on barium enema, there is some severe narrowing in the mid sigmoid. Therefore, since this is her 3rd episode of small-bowel obstruction, she is being followed by surgery for a possible sigmoidectomy. Will await decision regarding timing. Subjective Date/time seen: 11/09/24 07:23 Interval history: The patient is tolerating food very well. No further abdominal pain, only mild sensation of gas. Exam Narrative: Abdomen: Soft, nontender, nondistended, no masses. Rest of exam unchanged from baseline. Objective Data Vital Signs Vital Signs: Vital Signs - 24 hr 11/08/24 07:53 11/08/24 08:00 11/08/24 14:00 Temperature 97.8 F Pulse Rate 67 84 Respiratory Rate 18 17 Blood Pressure 128/55 L Pulse Oximetry 95 Oxygen Delivery Room Air 11/08/24 21:34 11/09/24 06:00 Temperature 97.3 F L 97.7 F Pulse Rate 63 73 Respiratory Rate 14 14 Blood Pressure 142/67 H 171/83 H Pulse Oximetry 98 95 Oxygen Delivery Intake/Output Intake/Output: Intake & Output 11/06/24 11/07/24 11/08/24 11/09/24 23:59 23:59 23:59 23:59 Intake Total 1584 1540 1770 450 Output Total 800 1 Balance 784 1540 1769 450 Meds/Results Medications: Active Medications Generic Name Dose Route Start Last Admin Trade Name Freq PRN Reason Stop Dose Admin Acetaminophen 650 mg 11/01/24 17:53 Acetaminophen 325 Mg Tablet PO Q4H PRN Mild Pain (1-3) or Fever Hydrocodone Bitart/Acetaminophen 1 tab 11/01/24 17:53 11/03/24 12:41 Hydrocodone/Acetaminophen (*Crx) 5-325 Mg Tablet PO 1 tab Q4H PRN Administration Moderate Pain (4-6) Albuterol 2 puff 11/01/24 22:09 Albuterol Sulfate (*Sp) Aerosol 1 Puff INHALATION Q4-6H PRN shortness of breath or wheezing Aspirin 81 mg 11/02/24 09:00 11/08/24 08:22 Aspirin 81 Mg Enteric Tablet PO Not Given DAILY [facility] Enoxaparin Sodium 40 mg 11/02/24 09:00 11/08/24 08:22 Enoxaparin 40 Mg/0.4 Ml Syringe SUB-Q Not Given DAILY [facility] Fluticasone/Umeclidinium/Vilanterol 1 puff 11/02/24 09:00 11/08/24 07:51 Fluticasone/Umeclidin/Vilanter 100-62.5-25 Mcg Ellipta INHALATION 1 puff DAILY [facility] Administration Folic Acid 1 mg 11/02/24 09:00 11/08/24 08:22 Folic Acid 1 Mg Tablet PO Not Given DAILY [facility] Hydralazine HCl 5 mg 11/04/24 15:16 11/05/24 20:16 Hydralazine Hcl 20 Mg/Ml Vial IV PUSH 5 mg Q8H PRN Administration Blood Pressure - High Morphine Sulfate 4 mg 11/01/24 13:45 11/05/24 05:21 Morphine Sulfate (*Crx) 4 Mg/Ml Inj IV PUSH 4 mg Q4H PRN Administration Pain Rated 7-10 Morphine Sulfate 2 mg 11/03/24 18:37 11/06/24 05:33 Morphine Sulfate (*Crx) 2 Mg/Ml Inj IV PUSH 2 mg Q3H PRN Administration Pain Rated 4-6 Ondansetron HCl 4 mg 11/01/24 18:05 11/07/24 05:13 Ondansetron Inj 4 Mg/2 Ml Vial IV PUSH 4 mg Q4H PRN Administration Nausea And Vomiting Pantoprazole Sodium 40 mg 11/08/24 17:05 11/08/24 17:38 Pantoprazole 40 Mg Tablet PO 40 mg QAM BETTINA Administration Phenol 1 spray 11/04/24 11:58 11/04/24 13:37 Phenol/Sod Pheno [place] Garcia (*Bkc) MUCOUS MEM 1 spray PRN PRN Administration Sore Throat Radiology Results: ITS Impressions Chest X-Ray 11/01/24 10:18 Impression: 1: Progression of spiculated right upper lobe mass with associated calcifications. Cannot exclude malignancy. Recommend further evaluation with CT-guided biopsy or pet/CT scan. Abdomen/Pelvis CT 11/01/24 10:37 IMPRESSION: Multiple loops of dilated, fluid-filled, featureless small bowel with segments of mural thickening within portions of the the colon (which demonstrate diverticulosis). This constellation of findings suggest a possible ileus, rather than a discrete bowel obstruction. No fat plane between the uterus and the thickened loop of distal sigmoid colon with presacral induration in the left hemipelvis. Chest CT 11/01/24 11:15 IMPRESSION: 1. Mild to moderate emphysema with persistent tree-in-bud opacities in the dependent left lower lobe consistent with bronchiolitis. 2. No recent interval change in a 4.6 x 3.5 similar thick-walled centrally cavitary lesion at the right apex which is decreased in size and degree of wall thickening since 2022, likely scarring as sequela of chronic infection. Abdomen X-Ray 11/07/24 15:01 Impression: 1: Improved small bowel dilation compared with 11/03/2024, likely resolving ileus or partial obstruction. Barium Enema 11/08/24 12:44 IMPRESSION: 1. Contrast unable to be passage beyond a high-grade stricture in the distal sigmoid colon which could be due to inflammation or scarring related to reported recent colitis/diverticulitis but which also raises significant concern for malignancy. Could consider repeat single contrast water-soluble enema following sufficient time to allow for resolution of any potential contributing inflammation. Labs Labs: Laboratory Results - last 24 hr 11/08/24 11/09/24 09:36 06:02 WBC 7.3 RBC 3.67 L Hgb 11.7 L Hct 35.6 L MCV 97.0 MCH 31.9 MCHC 32.9 RDW 14.3 Plt Count 387 H MPV 9.8 Sodium 137 Potassium 3.6 Chloride 102 Carbon Dioxide 28 Anion Gap 7 Creatinine 0.57 L Estim Creat Clear Calc 67 Estimated GFR > 60 Glucose 68 POC Capillary Glucose 91 Calcium 8.9 Magnesium 1.6
[2024-11-09 08:00] VITALS: O2SAT 97
[2024-11-09] MEDS: FLUTICASONE/UMECLIDIN/VILANTER 100-62.5-25 MCG ELLIPTA 1 PUFF INHALATION (09:05)
[2024-11-09 09:08] VITALS: PULSE 71; RESP 18; O2SAT 96
[2024-11-09 09:10] VITALS: PULSE 71; RESP 18
[2024-11-09] MEDS: ASPIRIN 81 MG ENTERIC TABLET PO (10:09)
[2024-11-09] MEDS: PANTOPRAZOLE 40 MG TABLET PO (10:09)
[2024-11-09] MEDS: ENOXAPARIN 40 MG/0.4 ML SYRINGE SUB-Q (10:09)
[2024-11-09] MEDS: FOLIC ACID 1 MG TABLET PO (10:09)
--- NOTE | 2024-11-09 10:40 | PM.IMPN ---
Progress Note: A&P Assessment and Plan (1) Ileus: Code(s): K56.7 - Ileus, unspecified Status: Acute (2) GOYO (acute kidney injury): Code(s): N17.9 - Acute kidney failure, unspecified Status: Acute (3) Leukocytosis: Code(s): D72.829 - Elevated white blood cell count, unspecified Status: Acute (4) Reflux esophagitis: Code(s): K21.00 - Gastro-esophageal reflux disease with esophagitis, without bleeding Status: Acute (5) Colonic obstruction: Code(s): K56.609 - Unspecified intestinal obstruction, unspecified as to partial versus complete obstruction Status: Acute Plan 74-year-old female with history of hereditary hemochromatosis, cirrhosis, COPD, active nicotine abuse, prior alcohol use disorder, history of bowel resection, hypertension, nocturnal hypoxemia with 2 L nasal cannula at night followed by Dr. Jefferson presents to [facility] ER on 11/01/2024 with complaint of abdominal pain. She has been having loose bowel movements and nausea. She was just discharged from [facility] on 10/27/2024 with colitis, bowel obstruction, pneumonia, UTI. ER workup revealed leukocytosis, serum creatinine 1.25, contaminated urinalysis, CT abdomen pelvis reveals multiple loops of dilated fluid-filled featureless small bowel with segments of mural thickening within portions of the colon, suggestive of ileus. Chest CT demonstrating moderate emphysema with persistent tree-in-bud opacities in the dependent left lower lobe consistent with bronchiolitis. Chronic cavitary lesion at right apex peer She was given IV fluids and Zosyn. C diff was negative. ---- NG tube placed on 11/03/2024 for GI decompression. NG tube removed on 11/05/2024. Underwent sigmoidoscopy and endoscopy on 11/07/2024. EGD reveals a small hiatal hernia at the GE junction, reflux esophagitis grade A, normal stomach, and duodenum. Four biopsies taken from the antrum and body. Colonoscopy incomplete as there was severe angulation 35 cm above the anal verge that precluded any passage. Barium enema performed on 11/08/2024: Contrast unable to passed through the high-grade stricture in the distal sigmoid colon. General surgery consulted. No plans for intervention this weekend. Getting further recommendations. Zosyn discontinued Blood and stool cultures 11/01/2024: No growth, final. Blood pressure elevated consistently. Started amlodipine 5 mg p.o. q.a.m. on 11/09/2024. Continue hydralazine p.r.n. for SBP greater than 180. Patient wishes to be full code. Lovenox 40 mg subQ q.day. low residue diet. Subjective Date/time seen: 11/09/24 10:40 Interval history: No acute events overnight. Patient reports being in a very good mood because she is eating now. Denies nausea vomiting or abdominal pain. Review of Systems Review of Systems: All systems reviewed & are unremarkable except as noted in HPI and below (Subjective) Exam Const: General: comfortable and no acute distress Other: A&O x3 HENMT: Mouth: Yes moist mucous membranes Eyes: Pupils: Equal, round and reactive pupils present Neck: Neck: supple Resp: Effort & Inspection: normal respiratory effort Auscultation: clear to auscultation bilaterally Cardio: Rate: regular rate Rhythm: regular rhythm GI: Inspection: non-distended GI Palp: Yes Soft to palpation Neuro: Motor exam (neuro): 5/5 motor strength present throughout Extrem: General: no edema Objective Data Vital Signs Vital Signs: Vital Signs - 24 hr 11/08/24 14:00 11/08/24 21:34 11/09/24 06:00 Temperature 97.8 F 97.3 F L 97.7 F Pulse Rate 84 63 73 Respiratory Rate 17 14 14 Blood Pressure 128/55 L 142/67 H 171/83 H Pulse Oximetry 95 98 95 Oxygen Delivery 11/09/24 09:08 11/09/24 09:08 11/09/24 09:10 Temperature Pulse Rate 71 71 Respiratory Rate 18 18 Blood Pressure Pulse Oximetry 96 Oxygen Delivery Room Air Intake/Output Intake/Output: Intake & Output 11/06/24 11/07/24 11/08/24 11/09/24 23:59 23:59 23:59 23:59 Intake Total 1584 1540 1770 690 Output Total 800 1 Balance 784 1540 1769 690 Meds/Results Medications: Active Medications Generic Name Dose Route Start Last Admin Trade Name Freq PRN Reason Stop Dose Admin Acetaminophen 650 mg 11/01/24 17:53 Acetaminophen 325 Mg Tablet PO Q4H PRN Mild Pain (1-3) or Fever Hydrocodone Bitart/Acetaminophen 1 tab 11/01/24 17:53 11/03/24 12:41 Hydrocodone/Acetaminophen (*Crx) 5-325 Mg Tablet PO 1 tab Q4H PRN Administration Moderate Pain (4-6) Albuterol 2 puff 11/01/24 22:09 Albuterol Sulfate (*Sp) Aerosol 1 Puff INHALATION Q4-6H PRN shortness of breath or wheezing Aspirin 81 mg 11/02/24 09:00 11/09/24 10:09 Aspirin 81 Mg Enteric Tablet PO 81 mg DAILY BETTINA Administration Enoxaparin Sodium 40 mg 11/02/24 09:00 11/09/24 10:09 Enoxaparin 40 Mg/0.4 Ml Syringe SUB-Q 40 mg DAILY BETTINA Administration Fluticasone/Umeclidinium/Vilanterol 1 puff 11/02/24 09:00 11/09/24 09:05 Fluticasone/Umeclidin/Vilanter 100-62.5-25 Mcg Ellipta INHALATION 1 puff DAILY BETTINA Administration Folic Acid 1 mg 11/02/24 09:00 11/09/24 10:09 Folic Acid 1 Mg Tablet PO 1 mg DAILY BETTINA Administration Hydralazine HCl 5 mg 11/04/24 15:16 11/05/24 20:16 Hydralazine Hcl 20 Mg/Ml Vial IV PUSH 5 mg Q8H PRN Administration Blood Pressure - High Morphine Sulfate 4 mg 11/01/24 13:45 11/05/24 05:21 Morphine Sulfate (*Crx) 4 Mg/Ml Inj IV PUSH 4 mg Q4H PRN Administration Pain Rated 7-10 Morphine Sulfate 2 mg 11/03/24 18:37 11/06/24 05:33 Morphine Sulfate (*Crx) 2 Mg/Ml Inj IV PUSH 2 mg Q3H PRN Administration Pain Rated 4-6 Ondansetron HCl 4 mg 11/01/24 18:05 11/07/24 05:13 Ondansetron Inj 4 Mg/2 Ml Vial IV PUSH 4 mg Q4H PRN Administration Nausea And Vomiting Pantoprazole Sodium 40 mg 11/08/24 17:05 11/09/24 10:09 Pantoprazole 40 Mg Tablet PO 40 mg QAM BETTINA Administration Phenol 1 spray 11/04/24 11:58 11/04/24 13:37 Phenol/Sod Pheno [place] Garcia (*Bkc) MUCOUS MEM 1 spray PRN PRN Administration Sore Throat Radiology Results: ITS Impressions Chest X-Ray 11/01/24 10:18 Impression: 1: Progression of spiculated right upper lobe mass with associated calcifications. Cannot exclude malignancy. Recommend further evaluation with CT-guided biopsy or pet/CT scan. Abdomen/Pelvis CT 11/01/24 10:37 IMPRESSION: Multiple loops of dilated, fluid-filled, featureless small bowel with segments of mural thickening within portions of the the colon (which demonstrate diverticulosis). This constellation of findings suggest a possible ileus, rather than a discrete bowel obstruction. No fat plane between the uterus and the thickened loop of distal sigmoid colon with presacral induration in the left hemipelvis. Chest CT 11/01/24 11:15 IMPRESSION: 1. Mild to moderate emphysema with persistent tree-in-bud opacities in the dependent left lower lobe consistent with bronchiolitis. 2. No recent interval change in a 4.6 x 3.5 similar thick-walled centrally cavitary lesion at the right apex which is decreased in size and degree of wall thickening since 2022, likely scarring as sequela of chronic infection. Abdomen X-Ray 11/07/24 15:01 Impression: 1: Improved small bowel dilation compared with 11/03/2024, likely resolving ileus or partial obstruction. Barium Enema 11/08/24 12:44 IMPRESSION: 1. Contrast unable to be passage beyond a high-grade stricture in the distal sigmoid colon which could be due to inflammation or scarring related to reported recent colitis/diverticulitis but which also raises significant concern for malignancy. Could consider repeat single contrast water-soluble enema following sufficient time to allow for resolution of any potential contributing inflammation. Labs Labs: Laboratory Results - last 24 hr 11/09/24 06:02 WBC 7.3 RBC 3.67 L Hgb 11.7 L Hct 35.6 L MCV 97.0 MCH 31.9 MCHC 32.9 RDW 14.3 Plt Count 387 H MPV 9.8 Sodium 137 Potassium 3.6 Chloride 102 Carbon Dioxide 28 Anion Gap 7 Creatinine 0.57 L Estim Creat Clear Calc 67 Estimated GFR > 60 Glucose 68 Calcium 8.9 Magnesium 1.6
--- NOTE | 2024-11-09 11:00 | PCNWS ---
Weekly nutritional screen. Patient is tolerating current low fiber diet with adequate intake 100%. No weight loss reported. No nutritional recommendations at this time.
[2024-11-09 11:54] LABS: Blood Urea Nitrogen < 2 mg/dL (7-17)
[2024-11-09 13:29] LABS: Alanine Aminotransferase 16 U/L (6-35); Albumin Level 3.6 g/dL (3.5-5.1); Alkaline Phosphatase 66 U/L (38-126); Anion Gap 10 mmol/L (4-12); Aspartate Amino Transferase 29 U/L (14-36); Bilirubin,Total 0.2 mg/dL (0.2-1.3); Calcium 9.0 mg/dL (8.4-10.2); Carbon Dioxide 28 mmol/L (22-30); Chloride 98 mmol/L (98-107); Estimated CRCL calculation 57 ml/min; Estimated Glomerular Filt Rate > 60; Glucose 100 mg/dL (65-110); Potassium 3.6 mmol/L (3.4-5.0); Sodium 136 mmol/L (137-145); Total Protein 6.9 g/dL (6.3-8.2)
[2024-11-09 14:00] VITALS: BP 162/71; PULSE 74; RESP 16; TEMP 37.3; O2SAT 98
--- NOTE | 2024-11-09 14:13 | P.PNGS_ITS ---
Progress Note: A&P Assessment and Plan (1) Acute colitis: Code(s): K52.9 - Noninfective gastroenteritis and colitis, unspecified Status: Acute Assessment and Plan: * Patient will need surgery to resolve colon stricture. Tolerating diet now, but albumin was recently 2.9, now 3.6. Continue to monitor nutritional status prior to surgery. Consider TPN if patient appears malnourished. Patient will stay inpatient until scheduled surgery next week. Okay to continue low-fiber diet until night before surgery. CMP ordered for tomorrow. Continue with daily labs and serial abdominal exams. (2) Ileus: Code(s): K56.7 - Ileus, unspecified Status: Acute Assessment and Plan: * Resolved. Plan Discussed patient's case and plan of care with Dr. Perkins. Subjective Subjective Date/Time Seen: 11/09/24 14:13 Patient reports: no new complaints and tolerating a regular diet Interval history: Patient doing well today. Small liquid bowel movement. Tolerating diet without nausea or vomiting. Normal WBC. Afebrile. Exam GI: Inspection: non-distended and striae GI Palp: Yes Soft to palpation and No Tenderness to palpation present (GI) Auscultation: normal bowel sounds Objective Data Vital Signs Vital Signs: Vital Signs - 24 hr 11/08/24 21:34 11/09/24 06:00 11/09/24 09:08 Temperature 97.3 F L 97.7 F Pulse Rate 63 73 71 Respiratory Rate 14 14 18 Blood Pressure 142/67 H 171/83 H Pulse Oximetry 98 95 Oxygen Delivery 11/09/24 09:08 11/09/24 09:10 Temperature Pulse Rate 71 Respiratory Rate 18 Blood Pressure Pulse Oximetry 96 Oxygen Delivery Room Air Intake/Output Intake/Output: Intake & Output 11/06/24 11/07/24 11/08/24 11/09/24 23:59 23:59 23:59 23:59 Intake Total 1584 1540 1770 690 Output Total 800 1 Balance 784 1540 1769 690 Meds/Results Medications: Active Medications Generic Name Dose Route Start Last Admin Trade Name Freq PRN Reason Stop Dose Admin Acetaminophen 650 mg 11/01/24 17:53 Acetaminophen 325 Mg Tablet PO Q4H PRN Mild Pain (1-3) or Fever Hydrocodone Bitart/Acetaminophen 1 tab 11/01/24 17:53 11/03/24 12:41 Hydrocodone/Acetaminophen (*Crx) 5-325 Mg Tablet PO 1 tab Q4H PRN Administration Moderate Pain (4-6) Albuterol 2 puff 11/01/24 22:09 Albuterol Sulfate (*Sp) Aerosol 1 Puff INHALATION Q4-6H PRN shortness of breath or wheezing Amlodipine Besylate 5 mg 11/09/24 10:50 11/09/24 12:15 Amlodipine Besylate 5 Mg Tablet PO 5 mg DAILY BETTINA Administration Aspirin 81 mg 11/02/24 09:00 11/09/24 10:09 Aspirin 81 Mg Enteric Tablet PO 81 mg DAILY BETTINA Administration Enoxaparin Sodium 40 mg 11/02/24 09:00 11/09/24 10:09 Enoxaparin 40 Mg/0.4 Ml Syringe SUB-Q 40 mg DAILY BETTINA Administration Fluticasone/Umeclidinium/Vilanterol 1 puff 11/02/24 09:00 11/09/24 09:05 Fluticasone/Umeclidin/Vilanter 100-62.5-25 Mcg Ellipta INHALATION 1 puff DAILY BETTINA Administration Folic Acid 1 mg 11/02/24 09:00 11/09/24 10:09 Folic Acid 1 Mg Tablet PO 1 mg DAILY [facility]TINA Administration Hydralazine HCl 5 mg 11/04/24 15:16 11/05/24 20:16 Hydralazine Hcl 20 Mg/Ml Vial IV PUSH 5 mg Q8H PRN Administration Blood Pressure - High Morphine Sulfate 4 mg 11/01/24 13:45 11/05/24 05:21 Morphine Sulfate (*Crx) 4 Mg/Ml Inj IV PUSH 4 mg Q4H PRN Administration Pain Rated 7-10 Morphine Sulfate 2 mg 11/03/24 18:37 11/06/24 05:33 Morphine Sulfate (*Crx) 2 Mg/Ml Inj IV PUSH 2 mg Q3H PRN Administration Pain Rated 4-6 Ondansetron HCl 4 mg 11/01/24 18:05 11/07/24 05:13 Ondansetron Inj 4 Mg/2 Ml Vial IV PUSH 4 mg Q4H PRN Administration Nausea And Vomiting Pantoprazole Sodium 40 mg 11/08/24 17:05 11/09/24 10:09 Pantoprazole 40 Mg Tablet PO 40 mg QAM BETTINA Administration Phenol 1 spray 11/04/24 11:58 11/04/24 13:37 Phenol/Sod Pheno [place] Garcia (*Bkc) MUCOUS MEM 1 spray PRN PRN Administration Sore Throat Radiology Results: ITS Impressions Chest X-Ray 11/01/24 10:18 Impression: 1: Progression of spiculated right upper lobe mass with associated calcifications. Cannot exclude malignancy. Recommend further evaluation with CT- guided biopsy or pet/CT scan. Abdomen/Pelvis CT 11/01/24 10:37 IMPRESSION: Multiple loops of dilated, fluid-filled, featureless small bowel with segments of mural thickening within portions of the the colon (which demonstrate diverticulosis). This constellation of findings suggest a possible ileus, rather than a discrete bowel obstruction. No fat plane between the uterus and the thickened loop of distal sigmoid colon with presacral induration in the left hemipelvis. Chest CT 11/01/24 11:15 IMPRESSION: 1. Mild to moderate emphysema with persistent tree-in-bud opacities in the dependent left lower lobe consistent with bronchiolitis. 2. No recent interval change in a 4.6 x 3.5 similar thick-walled centrally cavitary lesion at the right apex which is decreased in size and degree of wall thickening since 2022, likely scarring as sequela of chronic infection. Abdomen X-Ray 11/07/24 15:01 Impression: 1: Improved small bowel dilation compared with 11/03/2024, likely resolving ileus or partial obstruction. Barium Enema 11/08/24 12:44 IMPRESSION: 1. Contrast unable to be passage beyond a high-grade stricture in the distal sigmoid colon which could be due to inflammation or scarring related to reported recent colitis/diverticulitis but which also raises significant concern for malignancy. Could consider repeat single contrast water-soluble enema following sufficient time to allow for resolution of any potential contributing inflammation. Labs Labs: Laboratory Results - last 24 hr 11/09/24 11/09/24 06:02 12:55 WBC 7.3 RBC 3.67 L Hgb 11.7 L Hct 35.6 L MCV 97.0 MCH 31.9 MCHC 32.9 RDW 14.3 Plt Count 387 H MPV 9.8 Sodium 137 136 L Potassium 3.6 3.6 Chloride 102 98 Carbon Dioxide 28 28 Anion Gap 7 10 BUN < 2 L Creatinine 0.57 L 0.68 L Estim Creat Clear Calc 67 57 Estimated GFR > 60 > 60 Glucose 68 100 Calcium 8.9 9.0 Magnesium 1.6 Total Bilirubin 0.2 AST 29 ALT 16 Alkaline Phosphatase 66 Total Protein 6.9 Albumin 3.6
[2024-11-09 15:15] VITALS: BMI 23.7
[2024-11-09 15:21] LABS: Hematocrit 34.0 % (37.0-47.0); Hemoglobin 11.2 g/dL (12.0-15.0); Immature Granulocyte Percent A 0.4 % (0-0.5); Lymphocytes Absolute Auto 2.60 K/mm3 (0.9-3.2); Mean Corpuscular HGB Conc 32.9 g/dl (32-36); Mean Corpuscular Hemoglobin 31.5 pg (26-34); Mean Corpuscular Volume 95.8 fl (80-100); Nucleated Red Blood Cells Absolute Auto 0.000 K/mm3 (0.0-0.012); Nucleated Red Blood Cells Perc 0.0 % (0.0-0.2); Platelet Count Result 374 k/mm3 (150-375); Red Blood Count 3.55 M/mm3 (4.2-5.4); White Blood Count 11.8 K/mm3 (4.5-10.0)
[2024-11-09 15:30] LABS: Alanine Aminotransferase 14 U/L (6-35); Albumin Level 3.2 g/dL (3.5-5.1); Alkaline Phosphatase 64 U/L (38-126); Anion Gap 8 mmol/L (4-12); Aspartate Amino Transferase 27 U/L (14-36); Bilirubin,Total 0.2 mg/dL (0.2-1.3); Blood Urea Nitrogen 2 mg/dL (7-17); Calcium 8.7 mg/dL (8.4-10.2); Carbon Dioxide 26 mmol/L (22-30); Chloride 99 mmol/L (98-107); Estimated CRCL calculation 56 ml/min; Estimated Glomerular Filt Rate > 60; Glucose 88 mg/dL (65-110); Magnesium 1.5 mg/dL (1.6-2.3); Potassium 3.9 mmol/L (3.4-5.0); Sodium 133 mmol/L (137-145); Total Protein 6.2 g/dL (6.3-8.2)
[2024-11-09 15:35] LABS: Partial Thromboplastin Time 34.0 Seconds (22.3-36.8)
[2024-11-09 15:37] LABS: Transferrin 134 mg/dL (206-381)
[2024-11-09 16:00] LABS: Blood Urea Nitrogen < 2 mg/dL (7-17)
[2024-11-09 21:43] VITALS: BP 135/66; PULSE 65; RESP 18; TEMP 36.6; O2SAT 97
[2024-11-10 06:00] VITALS: BP 160/65; PULSE 71; RESP 16; TEMP 36.6; O2SAT 94
[2024-11-10] MEDS: HYDROcodone/acetaminophen (*CRX) 5-325 MG TABLET 1 TAB PO (06:24)
[2024-11-10 07:09] LABS: Anion Gap 5 mmol/L (4-12); Blood Urea Nitrogen 4 mg/dL (7-17); Calcium 9.0 mg/dL (8.4-10.2); Carbon Dioxide 30 mmol/L (22-30); Chloride 99 mmol/L (98-107); Estimated CRCL calculation 66 ml/min; Estimated Glomerular Filt Rate > 60; Glucose 75 mg/dL (65-110); Magnesium 1.5 mg/dL (1.6-2.3); Potassium 3.7 mmol/L (3.4-5.0); Sodium 134 mmol/L (137-145)
--- NOTE | 2024-11-10 08:18 | P.PNIM_ITS ---
Progress Note: A&P Assessment and Plan (1) Ileus: Code(s): K56.7 - Ileus, unspecified Status: Acute (2) GOYO (acute kidney injury): Code(s): N17.9 - Acute kidney failure, unspecified Status: Acute (3) Leukocytosis: Code(s): D72.829 - Elevated white blood cell count, unspecified Status: Acute (4) Reflux esophagitis: Code(s): K21.00 - Gastro-esophageal reflux disease with esophagitis, without bleeding Status: Acute (5) Colonic obstruction: Code(s): K56.609 - Unspecified intestinal obstruction, unspecified as to partial versus complete obstruction Status: Acute (6) Hypomagnesemia: Code(s): E83.42 - Hypomagnesemia Status: Resolved Plan 74-year-old female with history of hereditary hemochromatosis, cirrhosis, COPD, active nicotine abuse, prior alcohol use disorder, history of bowel resection, hypertension, nocturnal hypoxemia with 2 L nasal cannula at night followed by Dr. Jefferson presents to [facility] ER on 11/01/2024 with complaint of abdominal pain. She has been having loose bowel movements and nausea. She was just discharged from [facility] on 10/27/2024 with colitis, bowel obstruction, pneumonia, UTI. ER workup revealed leukocytosis, serum creatinine 1.25, contaminated urinalysis, CT abdomen pelvis reveals multiple loops of dilated fluid-filled featureless small bowel with segments of mural thickening within portions of the colon, suggestive of ileus. Chest CT demonstrating moderate emphysema with persistent tree-in-bud opacities in the dependent left lower lobe consistent with bronchiolitis. Chronic cavitary lesion at right apex peer She was given IV fluids and Zosyn. C diff was negative. ---- NG tube placed on 11/03/2024 for GI decompression. NG tube removed on 11/05/2024. Underwent sigmoidoscopy and endoscopy on 11/07/2024. EGD reveals a small hiatal hernia at the GE junction, reflux esophagitis grade A, normal stomach, and duodenum. Four biopsies taken from the antrum and body. Colonoscopy incomplete as there was severe angulation 35 cm above the anal verge that precluded any passage. Barium enema performed on 11/08/2024: Contrast unable to passed through the high-grade stricture in the distal sigmoid colon. General surgery consulted, anticipate surgical intervention soon. Monitor nutrition, check CMP with albumin on 11/11/2024. Discussed risks versus benefits of TPN and patient declines at this time. Patient has not had bowel movement yet. Encourage ambulation. Zosyn discontinued Blood and stool cultures 11/01/2024: No growth, final. Blood pressure elevated consistently. Started amlodipine 5 mg p.o. q.a.m. on 11/09/2024. Slightly improved, continue to monitor and increase to 10 mg q.a.m. on 11/11/2024 if continues to be elevated. Continue hydralazine p.r.n. for SBP greater than 180. Hypo magnesemia: Replace and recheck. Leukocytosis: No bandemia identified. Patient is afebrile, no symptomatology to indicate infection. Continue to trend. Patient wishes to be full code. Lovenox 40 mg subQ q.day. low residue diet. Hold Lovenox and NPO Tuesday morning. Subjective Date/time seen: 11/10/24 08:18 Interval history: No acute overnight events. Patient has eaten breakfast, tolerated. She denies any nausea, vomiting, abdominal pain. She has not had a bowel movement in 4-5 days be as she has been NPO for most of the time. Denies feeling feverish or chills. Review of Systems Review of Systems: All systems reviewed & are unremarkable except as noted in HPI and below (Subjective) Exam Const: General: comfortable and no acute distress Other: A&O x3 HENMT: Mouth: Yes moist mucous membranes Eyes: Pupils: Equal, round and reactive pupils present Neck: Neck: supple Resp: Effort & Inspection: normal respiratory effort Auscultation: clear to auscultation bilaterally Cardio: Rate: regular rate Rhythm: regular rhythm GI: Inspection: non-distended GI Palp: Yes Soft to palpation Neuro: Motor exam (neuro): 5/5 motor strength present throughout Extrem: General: no edema Objective Data Vital Signs Vital Signs: Vital Signs - 24 hr 11/09/24 09:08 11/09/24 09:08 11/09/24 09:10 Temperature Pulse Rate 71 71 Respiratory Rate 18 18 Blood Pressure Pulse Oximetry 96 Oxygen Delivery Room Air 11/09/24 14:00 11/09/24 21:43 11/10/24 06:00 Temperature 99.1 F 97.8 F 97.8 F Pulse Rate 74 65 71 Respiratory Rate 16 18 16 Blood Pressure 162/71 H 135/66 160/65 H Pulse Oximetry 98 97 94 Oxygen Delivery Intake/Output Intake/Output: Intake & Output 11/07/24 11/08/24 11/09/24 11/10/24 23:59 23:59 23:59 23:59 Intake Total 1540 1770 930 Output Total 1 Balance 1540 1769 930 Meds/Results Medications: Active Medications Generic Name Dose Route Start Last Admin Trade Name Freq PRN Reason Stop Dose Admin Acetaminophen 650 mg 11/01/24 17:53 Acetaminophen 325 Mg Tablet PO Q4H PRN Mild Pain (1-3) or Fever Hydrocodone Bitart/Acetaminophen 1 tab 11/01/24 17:53 11/10/24 06:24 Hydrocodone/Acetaminophen (*Crx) 5-325 Mg Tablet PO 1 tab Q4H PRN Administration Moderate Pain (4-6) Albuterol 2 puff 11/01/24 22:09 Albuterol Sulfate (*Sp) Aerosol 1 Puff INHALATION Q4-6H PRN shortness of breath or wheezing Amlodipine Besylate 5 mg 11/09/24 10:50 11/09/24 12:15 Amlodipine Besylate 5 Mg Tablet PO 5 mg DAILY BETTINA Administration Aspirin 81 mg 11/02/24 09:00 11/09/24 10:09 Aspirin 81 Mg Enteric Tablet PO 81 mg DAILY BETTINA Administration Enoxaparin Sodium 40 mg 11/02/24 09:00 11/09/24 10:09 Enoxaparin 40 Mg/0.4 Ml Syringe SUB-Q 40 mg DAILY BETTINA Administration Fluticasone/Umeclidinium/Vilanterol 1 puff 11/02/24 09:00 11/09/24 09:05 Fluticasone/Umeclidin/Vilanter 100-62.5-25 Mcg Ellipta INHALATION 1 puff DAILY BETTINA Administration Folic Acid 1 mg 11/02/24 09:00 11/09/24 10:09 Folic Acid 1 Mg Tablet PO 1 mg DAILY BETTINA Administration Hydralazine HCl 5 mg 11/04/24 15:16 11/05/24 20:16 Hydralazine Hcl 20 Mg/Ml Vial IV PUSH 5 mg Q8H PRN Administration Blood Pressure - High Magnesium Sulfate/Dextrose 1 gm in 100 mls @ 100 mls/hr 11/10/24 08:00 Magnesium Sulf 1 Gm/D5w 100 Ml IVPB 11/10/24 08:59 ONCE ONE Morphine Sulfate 4 mg 11/01/24 13:45 11/05/24 05:21 Morphine Sulfate (*Crx) 4 Mg/Ml Inj IV PUSH 4 mg Q4H PRN Administration Pain Rated 7-10 Morphine Sulfate 2 mg 11/03/24 18:37 11/06/24 05:33 Morphine Sulfate (*Crx) 2 Mg/Ml Inj IV PUSH 2 mg Q3H PRN Administration Pain Rated 4-6 Ondansetron HCl 4 mg 11/01/24 18:05 11/07/24 05:13 Ondansetron Inj 4 Mg/2 Ml Vial IV PUSH 4 mg Q4H PRN Administration Nausea And Vomiting Pantoprazole Sodium 40 mg 11/08/24 17:05 11/09/24 10:09 Pantoprazole 40 Mg Tablet PO 40 mg QAM BETTINA Administration Phenol 1 spray 11/04/24 11:58 11/04/24 13:37 Phenol/Sod Pheno [place] Garcia (*Bkc) MUCOUS MEM 1 spray PRN PRN Administration Sore Throat Radiology Results: ITS Impressions Chest X-Ray 11/01/24 10:18 Impression: 1: Progression of spiculated right upper lobe mass with associated calcifica tions. Cannot exclude malignancy. Recommend further evaluation with CT-guided biopsy or pet/CT scan. Abdomen/Pelvis CT 11/01/24 10:37 IMPRESSION: Multiple loops of dilated, fluid-filled, featureless small bowel with segments of mural thickening within portions of the the colon (which demonstrate diverticulosis). This constellation of findings suggest a possible ileus, rather than a discrete bowel obstruction. No fat plane between the uterus and the thickened loop of distal sigmoid colon with presacral induration in the left hemipelvis. Chest CT 11/01/24 11:15 IMPRESSION: 1. Mild to moderate emphysema with persistent tree-in-bud opacities in the dependent left lower lobe consistent with bronchiolitis. 2. No recent interval change in a 4.6 x 3.5 similar thick-walled centrally cavitary lesion at the right apex which is decreased in size and degree of wall thickening since 2022, likely scarring as sequela of chronic infection. Abdomen X-Ray 11/07/24 15:01 Impression: 1: Improved small bowel dilation compared with 11/03/2024, likely resolving ileus or partial obstruction. Barium Enema 11/08/24 12:44 IMPRESSION: 1. Contrast unable to be passage beyond a high-grade stricture in the distal sigmoid colon which could be due to inflammation or scarring related to reported recent colitis/diverticulitis but which also raises significant concern for malignancy. Could consider repeat single contrast water-soluble enema following sufficient time to allow for resolution of any potential contributing inflammation. Labs Labs: Laboratory Results - last 24 hr 11/09/24 11/09/24 11/09/24 06:02 12:55 15:13 WBC 11.8 H RBC 3.55 L Hgb 11.2 L Hct 34.0 L MCV 95.8 MCH 31.5 MCHC 32.9 RDW 14.1 Plt Count 374 MPV 9.3 Immature Gran % (Auto) 0.4 Neut % (Auto) 63.2 Lymph % (Auto) 22.0 [place] % (Auto) 10.3 H Eos % (Auto) 3.6 Baso % (Auto) 0.5 Lymph # (Auto) 2.60 [place] # (Auto) 1.2 H Eos # (Auto) 0.4 H Baso # (Auto) 0.1 Abs Immat Gran (auto) 0.05 H Absolute Neuts (auto) 7.5 H Absolute Nucleated RBC 0.000 Nucleated RBC % 0.0 APTT Sodium 136 L Potassium 3.6 Chloride 98 Carbon Dioxide 28 Anion Gap 10 BUN < 2 L < 2 L Creatinine 0.68 L Estim Creat Clear Calc 57 Estimated GFR > 60 Glucose 100 Calcium 9.0 Magnesium Transferrin Total Bilirubin 0.2 AST 29 ALT 16 Alkaline Phosphatase 66 Total Protein 6.9 Albumin 3.6 11/09/24 11/10/24 15:14 06:12 WBC RBC Hgb Hct MCV MCH MCHC RDW Plt Count MPV Immature Gran % (Auto) Neut % (Auto) Lymph % (Auto) [place] % (Auto) Eos % (Auto) Baso % (Auto) Lymph # (Auto) [place] # (Auto) Eos # (Auto) Baso # (Auto) Abs Immat Gran (auto) Absolute Neuts (auto) Absolute Nucleated RBC Nucleated RBC % APTT 34.0 Sodium 133 L 134 L Potassium 3.9 3.7 Chloride 99 99 Carbon Dioxide 26 30 Anion Gap 8 5 BUN 2 L 4 L Creatinine 0.69 L 0.58 L Estim Creat Clear Calc 56 66 Estimated GFR > 60 > 60 Glucose 88 75 Calcium 8.7 9.0 Magnesium 1.5 L 1.5 L Transferrin 134 L Total Bilirubin 0.2 AST 27 ALT 14 Alkaline Phosphatase 64 Total Protein 6.2 L Albumin 3.2 L
[2024-11-10] MEDS: FLUTICASONE/UMECLIDIN/VILANTER 100-62.5-25 MCG ELLIPTA 1 PUFF INHALATION (08:41)
[2024-11-10 08:42] VITALS: PULSE 72; RESP 18
[2024-11-10] MEDS: MAGNESIUM SULF 1 GM/D5W 100 ML 1 GM/100 ML BAG IVPB ×2 (08:58→10:40)
[2024-11-10] MEDS: ENOXAPARIN 40 MG/0.4 ML SYRINGE SUB-Q (08:59)
[2024-11-10] MEDS: ASPIRIN 81 MG ENTERIC TABLET PO (08:59)
[2024-11-10] MEDS: FOLIC ACID 1 MG TABLET PO (08:59)
[2024-11-10] MEDS: PANTOPRAZOLE 40 MG TABLET PO (08:59)
--- NOTE | 2024-11-10 09:46 | P.PNGS_ITS ---
Progress Note: A&P Assessment and Plan (1) Colonic obstruction: Code(s): K56.609 - Unspecified intestinal obstruction, unspecified as to partial versus complete obstruction Status: Acute Assessment and Plan: distal sigmoid stricture, will setup for JON sigmoid colectomy, possible ostomy next week, cont medical/nutritional optimization for now Subjective Subjective Date/Time Seen: 11/10/24 09:46 Interval history: no acute c/o, krista low fiber diet Review of Systems Review of Systems: All systems reviewed & are unremarkable except as noted in HPI and below Exam Const: General: cooperative, comfortable and no acute distress Resp: Auscultation: clear to auscultation bilaterally Cardio: Rate: regular rate Rhythm: regular rhythm GI: Inspection: normal to inspection and distended GI Palp: No abdominal tenderness, Yes Soft to palpation, No Tenderness to palpation present (GI), No Guarding due to palpation present (GI) and No Rigid due to palpation Objective Data Vital Signs Vital Signs: Vital Signs - 24 hr 11/09/24 14:00 11/09/24 21:43 11/10/24 06:00 Temperature 37.3 C 36.6 C 36.6 C Pulse Rate 74 65 71 Respiratory Rate 16 18 16 Blood Pressure 162/71 H 135/66 160/65 H Pulse Oximetry 98 97 94 11/10/24 08:42 Temperature Pulse Rate 72 Respiratory Rate 18 Blood Pressure Pulse Oximetry Intake/Output Intake/Output: Intake & Output 11/07/24 11/08/24 11/09/24 11/10/24 23:59 23:59 23:59 23:59 Intake Total 1540 1770 930 240 Output Total 1 Balance 1540 1769 930 240 Meds/Results Medications: Active Medications Generic Name Dose Route Start Last Admin Trade Name Freq PRN Reason Stop Dose Admin Acetaminophen 650 mg 11/01/24 17:53 Acetaminophen 325 Mg Tablet PO Q4H PRN Mild Pain (1-3) or Fever Hydrocodone Bitart/Acetaminophen 1 tab 11/01/24 17:53 11/10/24 06:24 Hydrocodone/Acetaminophen (*Crx) 5-325 Mg Tablet PO 1 tab Q4H PRN Administration Moderate Pain (4-6) Albuterol 2 puff 11/01/24 22:09 Albuterol Sulfate (*Sp) Aerosol 1 Puff INHALATION Q4-6H PRN shortness of breath or wheezing Amlodipine Besylate 5 mg 11/09/24 10:50 11/10/24 08:59 Amlodipine Besylate 5 Mg Tablet PO 5 mg DAILY BETTINA Administration Aspirin 81 mg 11/02/24 09:00 11/10/24 08:59 Aspirin 81 Mg Enteric Tablet PO 81 mg DAILY BETTINA Administration Enoxaparin Sodium 40 mg 11/02/24 09:00 11/10/24 08:59 Enoxaparin 40 Mg/0.4 Ml Syringe SUB-Q 40 mg DAILY BETTINA Administration Fluticasone/Umeclidinium/Vilanterol 1 puff 11/02/24 09:00 11/10/24 08:41 Fluticasone/Umeclidin/Vilanter 100-62.5-25 Mcg Ellipta INHALATION 1 puff DAILY BETTINA Administration Folic Acid 1 mg 11/02/24 09:00 11/10/24 08:59 Folic Acid 1 Mg Tablet PO 1 mg DAILY BETTINA Administration Hydralazine HCl 5 mg 11/04/24 15:16 11/05/24 20:16 Hydralazine Hcl 20 Mg/Ml Vial IV PUSH 5 mg Q8H PRN Administration Blood Pressure - High Morphine Sulfate 4 mg 11/01/24 13:45 11/05/24 05:21 Morphine Sulfate (*Crx) 4 Mg/Ml Inj IV PUSH 4 mg Q4H PRN Administration Pain Rated 7-10 Morphine Sulfate 2 mg 11/03/24 18:37 11/06/24 05:33 Morphine Sulfate (*Crx) 2 Mg/Ml Inj IV PUSH 2 mg Q3H PRN Administration Pain Rated 4-6 Ondansetron HCl 4 mg 11/01/24 18:05 11/07/24 05:13 Ondansetron Inj 4 Mg/2 Ml Vial IV PUSH 4 mg Q4H PRN Administration Nausea And Vomiting Pantoprazole Sodium 40 mg 11/08/24 17:05 11/10/24 08:59 Pantoprazole 40 Mg Tablet PO 40 mg QAM BETTINA Administration Phenol 1 spray 11/04/24 11:58 11/04/24 13:37 Phenol/Sod Pheno [place] Garcia (*Bkc) MUCOUS MEM 1 spray PRN PRN Administration Sore Throat Radiology Results: ITS Impressions Chest X-Ray 11/01/24 10:18 Impression: 1: Progression of spiculated right upper lobe mass with associated calcifications. Cannot exclude malignancy. Recommend further evaluation with CT- guided biopsy or pet/CT scan. Abdomen/Pelvis CT 11/01/24 10:37 IMPRESSION: Multiple loops of dilated, fluid-filled, featureless small bowel with segments of mural thickening within portions of the the colon (which demonstrate diverticulosis). This constellation of findings suggest a possible ileus, rather than a discrete bowel obstruction. No fat plane between the uterus and the thickened loop of distal sigmoid colon with presacral induration in the left hemipelvis. Chest CT 11/01/24 11:15 IMPRESSION: 1. Mild to moderate emphysema with persistent tree-in-bud opacities in the dependent left lower lobe consistent with bronchiolitis. 2. No recent interval change in a 4.6 x 3.5 similar thick-walled centrally cavitary lesion at the right apex which is decreased in size and degree of wall thickening since 2022, likely scarring as sequela of chronic infection. Abdomen X-Ray 11/07/24 15:01 Impression: 1: Improved small bowel dilation compared with 11/03/2024, likely resolving ileus or partial obstruction. Barium Enema 11/08/24 12:44 IMPRESSION: 1. Contrast unable to be passage beyond a high-grade stricture in the distal sigmoid colon which could be due to inflammation or scarring related to reported recent colitis/diverticulitis but which also raises significant concern for malignancy. Could consider repeat single contrast water-soluble enema following sufficient time to allow for resolution of any potential contributing inflammation. Labs Labs: Laboratory Results - last 24 hr 11/09/24 11/09/24 11/09/24 06:02 12:55 15:13 WBC 11.8 H RBC 3.55 L Hgb 11.2 L Hct 34.0 L MCV 95.8 MCH 31.5 MCHC 32.9 RDW 14.1 Plt Count 374 MPV 9.3 Immature Gran % (Auto) 0.4 Neut % (Auto) 63.2 Lymph % (Auto) 22.0 [place] % (Auto) 10.3 H Eos % (Auto) 3.6 Baso % (Auto) 0.5 Lymph # (Auto) 2.60 [place] # (Auto) 1.2 H Eos # (Auto) 0.4 H Baso # (Auto) 0.1 Abs Immat Gran (auto) 0.05 H Absolute Neuts (auto) 7.5 H Absolute Nucleated RBC 0.000 Nucleated RBC % 0.0 APTT Sodium 136 L Potassium 3.6 Chloride 98 Carbon Dioxide 28 Anion Gap 10 BUN < 2 L < 2 L Creatinine 0.68 L Estim Creat Clear Calc 57 Estimated GFR > 60 Glucose 100 Calcium 9.0 Magnesium Transferrin Total Bilirubin 0.2 AST 29 ALT 16 Alkaline Phosphatase 66 Total Protein 6.9 Albumin 3.6 11/09/24 11/10/24 15:14 06:12 WBC RBC Hgb Hct MCV MCH MCHC RDW Plt Count MPV Immature Gran % (Auto) Neut % (Auto) Lymph % (Auto) [place] % (Auto) Eos % (Auto) Baso % (Auto) Lymph # (Auto) [place] # (Auto) Eos # (Auto) Baso # (Auto) Abs Immat Gran (auto) Absolute Neuts (auto) Absolute Nucleated RBC Nucleated RBC % APTT 34.0 Sodium 133 L 134 L Potassium 3.9 3.7 Chloride 99 99 Carbon Dioxide 26 30 Anion Gap 8 5 BUN 2 L 4 L Creatinine 0.69 L 0.58 L Estim Creat Clear Calc 56 66 Estimated GFR > 60 > 60 Glucose 88 75 Calcium 8.7 9.0 Magnesium 1.5 L 1.5 L Transferrin 134 L Total Bilirubin 0.2 AST 27 ALT 14 Alkaline Phosphatase 64 Total Protein 6.2 L Albumin 3.2 L
--- NOTE | 2024-11-10 10:38 | P.PNGI_ITS ---
Progress Note: A&P Assessment and Plan (1) Colonic obstruction: Code(s): K56.609 - Unspecified intestinal obstruction, unspecified as to partial versus complete obstruction Status: Acute Assessment and Plan: Patient doing clinically well, no signs of obstruction, tolerating regular diet. Surgical team to decide best nutrition strategy, from regular diet to TPN that was commented in recent notes. She is scheduled for sigmoid resection this coming Tuesday, unless there is an early opening. Will sign off for now, please let us know if we can be of help for any other matters pertaining to our specialty. Subjective Date/time seen: 11/10/24 10:38 Objective Data Vital Signs Vital Signs: Vital Signs - 24 hr 11/09/24 14:00 11/09/24 21:43 11/10/24 06:00 Temperature 99.1 F 97.8 F 97.8 F Pulse Rate 74 65 71 Respiratory Rate 16 18 16 Blood Pressure 162/71 H 135/66 160/65 H Pulse Oximetry 98 97 94 11/10/24 08:42 Temperature Pulse Rate 72 Respiratory Rate 18 Blood Pressure Pulse Oximetry Intake/Output Intake/Output: Intake & Output 11/07/24 11/08/24 11/09/24 11/10/24 23:59 23:59 23:59 23:59 Intake Total 1540 1770 930 240 Output Total 1 Balance 1540 1769 930 240 Meds/Results Medications: Active Medications Generic Name Dose Route Start Last Admin Trade Name Freq PRN Reason Stop Dose Admin Acetaminophen 650 mg 11/01/24 17:53 Acetaminophen 325 Mg Tablet PO Q4H PRN Mild Pain (1-3) or Fever Hydrocodone Bitart/Acetaminophen 1 tab 11/01/24 17:53 11/10/24 06:24 Hydrocodone/Acetaminophen (*Crx) 5-325 Mg Tablet PO 1 tab Q4H PRN Administration Moderate Pain (4-6) Albuterol 2 puff 11/01/24 22:09 Albuterol Sulfate (*Sp) Aerosol 1 Puff INHALATION Q4-6H PRN shortness of breath or wheezing Amlodipine Besylate 5 mg 11/09/24 10:50 11/10/24 08:59 Amlodipine Besylate 5 Mg Tablet PO 5 mg DAILY BETTINA Administration Aspirin 81 mg 11/02/24 09:00 11/10/24 08:59 Aspirin 81 Mg Enteric Tablet PO 81 mg DAILY BETTINA Administration Enoxaparin Sodium 40 mg 11/02/24 09:00 11/10/24 08:59 Enoxaparin 40 Mg/0.4 Ml Syringe SUB-Q 40 mg DAILY BETTINA Administration Fluticasone/Umeclidinium/Vilanterol 1 puff 11/02/24 09:00 11/10/24 08:41 Fluticasone/Umeclidin/Vilanter 100-62.5-25 Mcg Ellipta INHALATION 1 puff DAILY BETTINA Administration Folic Acid 1 mg 11/02/24 09:00 11/10/24 08:59 Folic Acid 1 Mg Tablet PO 1 mg DAILY BETTINA Administration Hydralazine HCl 5 mg 11/04/24 15:16 11/05/24 20:16 Hydralazine Hcl 20 Mg/Ml Vial IV PUSH 5 mg Q8H PRN Administration Blood Pressure - High Morphine Sulfate 4 mg 11/01/24 13:45 11/05/24 05:21 Morphine Sulfate (*Crx) 4 Mg/Ml Inj IV PUSH 4 mg Q4H PRN Administration Pain Rated 7-10 Morphine Sulfate 2 mg 11/03/24 18:37 11/06/24 05:33 Morphine Sulfate (*Crx) 2 Mg/Ml Inj IV PUSH 2 mg Q3H PRN Administration Pain Rated 4-6 Ondansetron HCl 4 mg 11/01/24 18:05 11/07/24 05:13 Ondansetron Inj 4 Mg/2 Ml Vial IV PUSH 4 mg Q4H PRN Administration Nausea And Vomiting Pantoprazole Sodium 40 mg 11/08/24 17:05 11/10/24 08:59 Pantoprazole 40 Mg Tablet PO 40 mg QAM BETTINA Administration Phenol 1 spray 11/04/24 11:58 11/04/24 13:37 Phenol/Sod Pheno [place] Garcia (*Bkc) MUCOUS MEM 1 spray PRN PRN Administration Sore Throat Radiology Results: ITS Impressions Chest X-Ray 11/01/24 10:18 Impression: 1: Progression of spiculated right upper lobe mass with associated calcifications. Cannot exclude malignancy. Recommend further evaluation with CT- guided biopsy or pet/CT scan. Abdomen/Pelvis CT 11/01/24 10:37 IMPRESSION: Multiple loops of dilated, fluid-filled, featureless small bowel with segments of mural thickening within portions of the the colon (which demonstrate diverticulosis). This constellation of findings suggest a possible ileus, rather than a discrete bowel obstruction. No fat plane between the uterus and the thickened loop of distal sigmoid colon with presacral induration in the left hemipelvis. Chest CT 11/01/24 11:15 IMPRESSION: 1. Mild to moderate emphysema with persistent tree-in-bud opacities in the dependent left lower lobe consistent with bronchiolitis. 2. No recent interval change in a 4.6 x 3.5 similar thick-walled centrally cavitary lesion at the right apex which is decreased in size and degree of wall thickening since 2022, likely scarring as sequela of chronic infection. Abdomen X-Ray 11/07/24 15:01 Impression: 1: Improved small bowel dilation compared with 11/03/2024, likely resolving ileus or partial obstruction. Barium Enema 11/08/24 12:44 IMPRESSION: 1. Contrast unable to be passage beyond a high-grade stricture in the distal sigmoid colon which could be due to inflammation or scarring related to reported recent colitis/diverticulitis but which also raises significant concern for malignancy. Could consider repeat single contrast water-soluble enema following sufficient time to allow for resolution of any potential contributing inflammation. Labs Labs: Laboratory Results - last 24 hr 11/09/24 11/09/24 11/09/24 06:02 12:55 15:13 WBC 11.8 H RBC 3.55 L Hgb 11.2 L Hct 34.0 L MCV 95.8 MCH 31.5 MCHC 32.9 RDW 14.1 Plt Count 374 MPV 9.3 Immature Gran % (Auto) 0.4 Neut % (Auto) 63.2 Lymph % (Auto) 22.0 [place] % (Auto) 10.3 H Eos % (Auto) 3.6 Baso % (Auto) 0.5 Lymph # (Auto) 2.60 [place] # (Auto) 1.2 H Eos # (Auto) 0.4 H Baso # (Auto) 0.1 Abs Immat Gran (auto) 0.05 H Absolute Neuts (auto) 7.5 H Absolute Nucleated RBC 0.000 Nucleated RBC % 0.0 APTT Sodium 136 L Potassium 3.6 Chloride 98 Carbon Dioxide 28 Anion Gap 10 BUN < 2 L < 2 L Creatinine 0.68 L Estim Creat Clear Calc 57 Estimated GFR > 60 Glucose 100 Calcium 9.0 Magnesium Transferrin Total Bilirubin 0.2 AST 29 ALT 16 Alkaline Phosphatase 66 Total Protein 6.9 Albumin 3.6 11/09/24 11/10/24 15:14 06:12 WBC RBC Hgb Hct MCV MCH MCHC RDW Plt Count MPV Immature Gran % (Auto) Neut % (Auto) Lymph % (Auto) [place] % (Auto) Eos % (Auto) Baso % (Auto) Lymph # (Auto) [place] # (Auto) Eos # (Auto) Baso # (Auto) Abs Immat Gran (auto) Absolute Neuts (auto) Absolute Nucleated RBC Nucleated RBC % APTT 34.0 Sodium 133 L 134 L Potassium 3.9 3.7 Chloride 99 99 Carbon Dioxide 26 30 Anion Gap 8 5 BUN 2 L 4 L Creatinine 0.69 L 0.58 L Estim Creat Clear Calc 56 66 Estimated GFR > 60 > 60 Glucose 88 75 Calcium 8.7 9.0 Magnesium 1.5 L 1.5 L Transferrin 134 L Total Bilirubin 0.2 AST 27 ALT 14 Alkaline Phosphatase 64 Total Protein 6.2 L Albumin 3.2 L
[2024-11-10 14:00] VITALS: BP 121/58; PULSE 63; RESP 16; TEMP 35.9; O2SAT 97
[2024-11-10 20:00] VITALS: PULSE 70; RESP 18; O2SAT 99
[2024-11-10 22:00] VITALS: BP 165/77; PULSE 70; RESP 18; TEMP 36.9; O2SAT 99
[2024-11-11 06:00] VITALS: BP 150/69; PULSE 88; RESP 20; TEMP 36.9; O2SAT 97
[2024-11-11] MEDS: HYDROcodone/acetaminophen (*CRX) 5-325 MG TABLET 1 TAB PO ×2 (06:00→20:55)
[2024-11-11 06:36] LABS: Hematocrit 37.3 % (37.0-47.0); Hemoglobin 12.4 g/dL (12.0-15.0); Immature Granulocyte Percent A 0.4 % (0-0.5); Lymphocytes Absolute Auto 2.43 K/mm3 (0.9-3.2); Mean Corpuscular HGB Conc 33.2 g/dl (32-36); Mean Corpuscular Hemoglobin 32.1 pg (26-34); Mean Corpuscular Volume 96.6 fl (80-100); Nucleated Red Blood Cells Absolute Auto 0.000 K/mm3 (0.0-0.012); Nucleated Red Blood Cells Perc 0.0 % (0.0-0.2); Platelet Count Result 366 k/mm3 (150-375); Red Blood Count 3.86 M/mm3 (4.2-5.4); White Blood Count 9.5 K/mm3 (4.5-10.0)
[2024-11-11 06:52] LABS: Alanine Aminotransferase 12 U/L (6-35); Albumin Level 3.5 g/dL (3.5-5.1); Alkaline Phosphatase 65 U/L (38-126); Anion Gap 5 mmol/L (4-12); Aspartate Amino Transferase 28 U/L (14-36); Bilirubin,Total 0.2 mg/dL (0.2-1.3); Blood Urea Nitrogen 6 mg/dL (7-17); Calcium 9.2 mg/dL (8.4-10.2); Carbon Dioxide 28 mmol/L (22-30); Chloride 97 mmol/L (98-107); Estimated CRCL calculation 63 ml/min; Estimated Glomerular Filt Rate > 60; Glucose 82 mg/dL (65-110); Magnesium 1.6 mg/dL (1.6-2.3); Potassium 4.2 mmol/L (3.4-5.0); Sodium 130 mmol/L (137-145); Total Protein 6.5 g/dL (6.3-8.2)
[2024-11-11] MEDS: FLUTICASONE/UMECLIDIN/VILANTER 100-62.5-25 MCG ELLIPTA 1 PUFF INHALATION (08:12)
[2024-11-11 08:14] VITALS: PULSE 80; RESP 18
[2024-11-11] MEDS: FOLIC ACID 1 MG TABLET PO (08:42)
[2024-11-11] MEDS: ASPIRIN 81 MG ENTERIC TABLET PO (08:42)
[2024-11-11] MEDS: PANTOPRAZOLE 40 MG TABLET PO (08:42)
[2024-11-11] MEDS: ENOXAPARIN 40 MG/0.4 ML SYRINGE SUB-Q (10:46)
--- NOTE | 2024-11-11 12:20 | PM.PNGS ---
Progress Note: A&P Assessment and Plan (1) Colonic obstruction: Code(s): K56.609 - Unspecified intestinal obstruction, unspecified as to partial versus complete obstruction Status: Acute Assessment and Plan: will need sigmoid colectomy possible ostomy, surgery next week, will cont med/nutritional optimization for now Subjective Subjective Date/Time Seen: 11/11/24 12:20 Interval history: feels good, large BM overnight, krista diet Review of Systems Review of Systems: All systems reviewed & are unremarkable except as noted in HPI and below Exam Const: General: cooperative, comfortable and no acute distress Resp: Auscultation: clear to auscultation bilaterally Cardio: Rate: regular rate Rhythm: regular rhythm GI: Inspection: normal to inspection and distended GI Palp: No abdominal tenderness, Yes Soft to palpation, No Tenderness to palpation present (GI), No Guarding due to palpation present (GI) and No Rigid due to palpation Objective Data Vital Signs Vital Signs: Vital Signs - 24 hr 11/10/24 14:00 11/10/24 20:00 11/10/24 22:00 Temperature 35.9 C L 36.9 C Pulse Rate 63 70 70 Respiratory Rate 16 18 18 Blood Pressure 121/58 L 165/77 H Pulse Oximetry 97 99 99 Oxygen Delivery Room Air 11/11/24 06:00 11/11/24 08:14 Temperature 36.9 C Pulse Rate 88 80 Respiratory Rate 20 18 Blood Pressure 150/69 H Pulse Oximetry 97 Oxygen Delivery Intake/Output Intake/Output: Intake & Output 11/08/24 11/09/24 11/10/24 11/11/24 23:59 23:59 23:59 23:59 Intake Total 1770 930 720 180 Output Total 1 Balance 1769 930 720 180 Meds/Results Medications: Active Medications Generic Name Dose Route Start Last Admin Trade Name Freq PRN Reason Stop Dose Admin Acetaminophen 650 mg 11/01/24 17:53 Acetaminophen 325 Mg Tablet PO Q4H PRN Mild Pain (1-3) or Fever Hydrocodone Bitart/Acetaminophen 1 tab 11/01/24 17:53 11/11/24 06:00 Hydrocodone/Acetaminophen (*Crx) 5-325 Mg Tablet PO 1 tab Q4H PRN Administration Moderate Pain (4-6) Albuterol 2 puff 11/01/24 22:09 Albuterol Sulfate (*Sp) Aerosol 1 Puff INHALATION Q4-6H PRN shortness of breath or wheezing Amlodipine Besylate 5 mg 11/09/24 10:50 11/11/24 08:42 Amlodipine Besylate 5 Mg Tablet PO 5 mg DAILY BETTINA Administration Aspirin 81 mg 11/02/24 09:00 11/11/24 08:42 Aspirin 81 Mg Enteric Tablet PO 81 mg DAILY BETTINA Administration Enoxaparin Sodium 40 mg 11/02/24 09:00 11/11/24 10:46 Enoxaparin 40 Mg/0.4 Ml Syringe SUB-Q 40 mg DAILY BETTINA Administration Fluticasone/Umeclidinium/Vilanterol 1 puff 11/02/24 09:00 11/11/24 08:12 Fluticasone/Umeclidin/Vilanter 100-62.5-25 Mcg Ellipta INHALATION 1 puff DAILY BETTINA Administration Folic Acid 1 mg 11/02/24 09:00 11/11/24 08:42 Folic Acid 1 Mg Tablet PO 1 mg DAILY BETTINA Administration Hydralazine HCl 5 mg 11/04/24 15:16 11/05/24 20:16 Hydralazine Hcl 20 Mg/Ml Vial IV PUSH 5 mg Q8H PRN Administration Blood Pressure - High Miscellaneous Information 1 each 11/11/24 00:01 Please Renew Morphine. Per [employer] Procedure, It Will Discontinue If Not Renewed XX 12/11/24 00:00 CLARIFY [facility] Morphine Sulfate 4 mg 11/01/24 13:45 11/05/24 05:21 Morphine Sulfate (*Crx) 4 Mg/Ml Inj IV PUSH 4 mg Q4H PRN Administration Pain Rated 7-10 Morphine Sulfate 2 mg 11/03/24 18:37 11/06/24 05:33 Morphine Sulfate (*Crx) 2 Mg/Ml Inj IV PUSH 2 mg Q3H PRN Administration Pain Rated 4-6 Ondansetron HCl 4 mg 11/01/24 18:05 11/07/24 05:13 Ondansetron Inj 4 Mg/2 Ml Vial IV PUSH 4 mg Q4H PRN Administration Nausea And Vomiting Pantoprazole Sodium 40 mg 11/08/24 17:05 11/11/24 08:42 Pantoprazole 40 Mg Tablet PO 40 mg QAM BETTINA Administration Phenol 1 spray 11/04/24 11:58 11/04/24 13:37 Phenol/Sod Pheno [place] Garcia (*Bkc) MUCOUS MEM 1 spray PRN PRN Administration Sore Throat Radiology Results: ITS Impressions Chest X-Ray 11/01/24 10:18 Impression: 1: Progression of spiculated right upper lobe mass with associated calcifications. Cannot exclude malignancy. Recommend further evaluation with CT-guided biopsy or pet/CT scan. Abdomen/Pelvis CT 11/01/24 10:37 IMPRESSION: Multiple loops of dilated, fluid-filled, featureless small bowel with segments of mural thickening within portions of the the colon (which demonstrate diverticulosis). This constellation of findings suggest a possible ileus, rather than a discrete bowel obstruction. No fat plane between the uterus and the thickened loop of distal sigmoid colon with presacral induration in the left hemipelvis. Chest CT 11/01/24 11:15 IMPRESSION: 1. Mild to moderate emphysema with persistent tree-in-bud opacities in the dependent left lower lobe consistent with bronchiolitis. 2. No recent interval change in a 4.6 x 3.5 similar thick-walled centrally cavitary lesion at the right apex which is decreased in size and degree of wall thickening since 2022, likely scarring as sequela of chronic infection. Abdomen X-Ray 11/07/24 15:01 Impression: 1: Improved small bowel dilation compared with 11/03/2024, likely resolving ileus or partial obstruction. Barium Enema 11/08/24 12:44 IMPRESSION: 1. Contrast unable to be passage beyond a high-grade stricture in the distal sigmoid colon which could be due to inflammation or scarring related to reported recent colitis/diverticulitis but which also raises significant concern for malignancy. Could consider repeat single contrast water-soluble enema following sufficient time to allow for resolution of any potential contributing inflammation. Labs Labs: Laboratory Results - last 24 hr 11/11/24 06:04 WBC 9.5 RBC 3.86 L Hgb 12.4 Hct 37.3 MCV 96.6 MCH 32.1 MCHC 33.2 RDW 13.9 Plt Count 366 MPV 9.7 Immature Gran % (Auto) 0.4 Neut % (Auto) 59.0 Lymph % (Auto) 25.7 [place] % (Auto) 9.1 H Eos % (Auto) 5.3 H Baso % (Auto) 0.5 Lymph # (Auto) 2.43 [place] # (Auto) 0.9 H Eos # (Auto) 0.5 H Baso # (Auto) 0.1 Abs Immat Gran (auto) 0.04 H Absolute Neuts (auto) 5.6 Absolute Nucleated RBC 0.000 Nucleated RBC % 0.0 Sodium 130 L Potassium 4.2 Chloride 97 L Carbon Dioxide 28 Anion Gap 5 BUN 6 L Creatinine 0.61 L Estim Creat Clear Calc 63 Estimated GFR > 60 Glucose 82 Calcium 9.2 Phosphorus 3.5 Magnesium 1.6 Total Bilirubin 0.2 AST 28 ALT 12 Alkaline Phosphatase 65 Total Protein 6.5 Albumin 3.5
[2024-11-11 14:00] VITALS: BP 128/60; PULSE 73; RESP 16; TEMP 36.7; O2SAT 98
--- NOTE | 2024-11-11 16:04 | PM.IMPN ---
Progress Note: A&P Assessment and Plan (1) Ileus: Code(s): K56.7 - Ileus, unspecified Status: Acute (2) GOYO (acute kidney injury): Code(s): N17.9 - Acute kidney failure, unspecified Status: Acute (3) Leukocytosis: Code(s): D72.829 - Elevated white blood cell count, unspecified Status: Acute (4) Reflux esophagitis: Code(s): K21.00 - Gastro-esophageal reflux disease with esophagitis, without bleeding Status: Acute (5) Colonic obstruction: Code(s): K56.609 - Unspecified intestinal obstruction, unspecified as to partial versus complete obstruction Status: Acute (6) Hypomagnesemia: Code(s): E83.42 - Hypomagnesemia Status: Resolved Plan 74-year-old female with history of hereditary hemochromatosis, cirrhosis, COPD, active nicotine abuse, prior alcohol use disorder, history of bowel resection, hypertension, nocturnal hypoxemia with 2 L nasal cannula at night followed by Dr. Jefferson presents to [facility] ER on 11/01/2024 with complaint of abdominal pain. She has been having loose bowel movements and nausea. She was just discharged from [facility] on 10/27/2024 with colitis, bowel obstruction, pneumonia, UTI. ER workup revealed leukocytosis, serum creatinine 1.25, contaminated urinalysis, CT abdomen pelvis reveals multiple loops of dilated fluid-filled featureless small bowel with segments of mural thickening within portions of the colon, suggestive of ileus. Chest CT demonstrating moderate emphysema with persistent tree-in-bud opacities in the dependent left lower lobe consistent with bronchiolitis. Chronic cavitary lesion at right apex peer She was given IV fluids and Zosyn. C diff was negative. ---- NG tube placed on 11/03/2024 for GI decompression. NG tube removed on 11/05/2024. Underwent sigmoidoscopy and endoscopy on 11/07/2024. EGD reveals a small hiatal hernia at the GE junction, reflux esophagitis grade A, normal stomach, and duodenum. Four biopsies taken from the antrum and body. Colonoscopy incomplete as there was severe angulation 35 cm above the anal verge that precluded any passage. Barium enema performed on 11/08/2024: Contrast unable to passed through the high-grade stricture in the distal sigmoid colon. General surgery consulted, anticipate surgical intervention soon. Discussed risks versus benefits of TPN and patient declines. He is tolerating diet. She had a bowel movement on 11/11/2024. Continue to encourage ambulation. Zosyn discontinued Blood and stool cultures 11/01/2024: No growth, final. Hyponatremia, sodium trending down. We will need to continue monitoring. Blood pressures were consistently elevated until amlodipine 5 mg p.o. q.a.m. was started on 11/09/2024. Continue to monitor. Hydralazine p.r.n. for SBP greater than 180. Hypo magnesium: Resolved status post replacement Leukocytosis: No bandemia identified. Patient is afebrile, no symptomatology to indicate infection. Continue to trend. Resolved on 11/11/2024 without intervention. Patient wishes to be full code. Low residue diet. Holding Lovenox 40 mg subQ q.a.m. on 11/12/2024 possible surgical intervention. Subjective Date/time seen: 11/11/24 16:04 Interval history: No acute overnight events. Patient had a very large bowel movement. Been tolerating diet. She was seen around lunchtime, she reports dietary sent up the wrong tray and reported her daughter called to change her meal. Patient was tearful and said her daughter did not do that., asked the nursing staff to help the patient out to get the mail she requested. The patient otherwise had no complaints. Review of Systems Review of Systems: All systems reviewed & are unremarkable except as noted in HPI and below (Subjective) Exam Const: General: comfortable and no acute distress Other: A&O x3 HENMT: Mouth: Yes moist mucous membranes Eyes: Pupils: Equal, round and reactive pupils present Neck: Neck: supple Resp: Effort & Inspection: normal respiratory effort Auscultation: clear to auscultation bilaterally Cardio: Rate: regular rate Rhythm: regular rhythm GI: Inspection: non-distended GI Palp: Yes Soft to palpation Neuro: Motor exam (neuro): 5/5 motor strength present throughout Extrem: General: no edema Objective Data Vital Signs Vital Signs: Vital Signs - 24 hr 11/10/24 20:00 11/10/24 22:00 11/11/24 06:00 Temperature 98.4 F 98.4 F Pulse Rate 70 70 88 Respiratory Rate 18 18 20 Blood Pressure 165/77 H 150/69 H Pulse Oximetry 99 99 97 Oxygen Delivery Room Air 11/11/24 08:14 11/11/24 14:00 Temperature 98.0 F Pulse Rate 80 73 Respiratory Rate 18 16 Blood Pressure 128/60 Pulse Oximetry 98 Oxygen Delivery Intake/Output Intake/Output: Intake & Output 11/08/24 11/09/24 11/10/24 11/11/24 23:59 23:59 23:59 23:59 Intake Total 1770 930 720 380 Output Total 1 Balance 1769 930 720 380 Meds/Results Medications: Active Medications Generic Name Dose Route Start Last Admin Trade Name Freq PRN Reason Stop Dose Admin Acetaminophen 650 mg 11/01/24 17:53 Acetaminophen 325 Mg Tablet PO Q4H PRN Mild Pain (1-3) or Fever Hydrocodone Bitart/Acetaminophen 1 tab 11/01/24 17:53 11/11/24 06:00 Hydrocodone/Acetaminophen (*Crx) 5-325 Mg Tablet PO 1 tab Q4H PRN Administration Moderate Pain (4-6) Albuterol 2 puff 11/01/24 22:09 Albuterol Sulfate (*Sp) Aerosol 1 Puff INHALATION Q4-6H PRN shortness of breath or wheezing Amlodipine Besylate 5 mg 11/09/24 10:50 11/11/24 08:42 Amlodipine Besylate 5 Mg Tablet PO 5 mg DAILY BETTINA Administration Aspirin 81 mg 11/02/24 09:00 11/11/24 08:42 Aspirin 81 Mg Enteric Tablet PO 81 mg DAILY BETTINA Administration Enoxaparin Sodium 40 mg 11/02/24 09:00 11/11/24 10:46 Enoxaparin 40 Mg/0.4 Ml Syringe SUB-Q 40 mg DAILY BETTINA Administration Fluticasone/Umeclidinium/Vilanterol 1 puff 11/02/24 09:00 11/11/24 08:12 Fluticasone/Umeclidin/Vilanter 100-62.5-25 Mcg Ellipta INHALATION 1 puff DAILY BETTINA Administration Folic Acid 1 mg 11/02/24 09:00 11/11/24 08:42 Folic Acid 1 Mg Tablet PO 1 mg DAILY BETTINA Administration Hydralazine HCl 5 mg 11/04/24 15:16 11/05/24 20:16 Hydralazine Hcl 20 Mg/Ml Vial IV PUSH 5 mg Q8H PRN Administration Blood Pressure - High Miscellaneous Information 1 each 11/11/24 00:01 Please Renew Morphine. Per [employer] Procedure, It Will Discontinue If Not Renewed XX 12/11/24 00:00 CLARIFY BETTINA Morphine Sulfate 2 mg 11/03/24 18:37 11/06/24 05:33 Morphine Sulfate (*Crx) 2 Mg/Ml Inj IV PUSH 2 mg Q3H PRN Administration Pain Rated 4-6 Ondansetron HCl 4 mg 11/01/24 18:05 11/07/24 05:13 Ondansetron Inj 4 Mg/2 Ml Vial IV PUSH 4 mg Q4H PRN Administration Nausea And Vomiting Pantoprazole Sodium 40 mg 11/08/24 17:05 11/11/24 08:42 Pantoprazole 40 Mg Tablet PO 40 mg QAM BETTINA Administration Phenol 1 spray 11/04/24 11:58 11/04/24 13:37 Phenol/Sod Pheno [place] Garcia (*Bkc) MUCOUS MEM 1 spray PRN PRN Administration Sore Throat Radiology Results: ITS Impressions Chest X-Ray 11/01/24 10:18 Impression: 1: Progression of spiculated right upper lobe mass with associated calcifications. Cannot exclude malignancy. Recommend further evaluation with CT-guided biopsy or pet/CT scan. Abdomen/Pelvis CT 11/01/24 10:37 IMPRESSION: Multiple loops of dilated, fluid-filled, featureless small bowel with segments of mural thickening within portions of the the colon (which demonstrate diverticulosis). This constellation of findings suggest a possible ileus, rather than a discrete bowel obstruction. No fat plane between the uterus and the thickened loop of distal sigmoid colon with presacral induration in the left hemipelvis. Chest CT 11/01/24 11:15 IMPRESSION: 1. Mild to moderate emphysema with persistent tree-in-bud opacities in the dependent left lower lobe consistent with bronchiolitis. 2. No recent interval change in a 4.6 x 3.5 similar thick-walled centrally cavitary lesion at the right apex which is decreased in size and degree of wall thickening since 2022, likely scarring as sequela of chronic infection. Abdomen X-Ray 11/07/24 15:01 Impression: 1: Improved small bowel dilation compared with 11/03/2024, likely resolving ileus or partial obstruction. Barium Enema 11/08/24 12:44 IMPRESSION: 1. Contrast unable to be passage beyond a high-grade stricture in the distal sigmoid colon which could be due to inflammation or scarring related to reported recent colitis/diverticulitis but which also raises significant concern for malignancy. Could consider repeat single contrast water-soluble enema following sufficient time to allow for resolution of any potential contributing inflammation. Labs Labs: Laboratory Results - last 24 hr 11/11/24 06:04 WBC 9.5 RBC 3.86 L Hgb 12.4 Hct 37.3 MCV 96.6 MCH 32.1 MCHC 33.2 RDW 13.9 Plt Count 366 MPV 9.7 Immature Gran % (Auto) 0.4 Neut % (Auto) 59.0 Lymph % (Auto) 25.7 [place] % (Auto) 9.1 H Eos % (Auto) 5.3 H Baso % (Auto) 0.5 Lymph # (Auto) 2.43 [place] # (Auto) 0.9 H Eos # (Auto) 0.5 H Baso # (Auto) 0.1 Abs Immat Gran (auto) 0.04 H Absolute Neuts (auto) 5.6 Absolute Nucleated RBC 0.000 Nucleated RBC % 0.0 Sodium 130 L Potassium 4.2 Chloride 97 L Carbon Dioxide 28 Anion Gap 5 BUN 6 L Creatinine 0.61 L Estim Creat Clear Calc 63 Estimated GFR > 60 Glucose 82 Calcium 9.2 Phosphorus 3.5 Magnesium 1.6 Total Bilirubin 0.2 AST 28 ALT 12 Alkaline Phosphatase 65 Total Protein 6.5 Albumin 3.5
[2024-11-11 20:00] VITALS: PULSE 65; RESP 16; O2SAT 100
[2024-11-11 21:06] VITALS: BP 156/75; PULSE 65; RESP 16; TEMP 36.7; O2SAT 100
[2024-11-12 05:51] VITALS: BP 156/66; PULSE 66; RESP 16; TEMP 36.4; O2SAT 96
[2024-11-12 05:57] LABS: Hematocrit 36.3 % (37.0-47.0); Hemoglobin 12.2 g/dL (12.0-15.0); Immature Granulocyte Percent A 0.3 % (0-0.5); Lymphocytes Absolute Auto 2.51 K/mm3 (0.9-3.2); Mean Corpuscular HGB Conc 33.6 g/dl (32-36); Mean Corpuscular Hemoglobin 32.3 pg (26-34); Mean Corpuscular Volume 96.0 fl (80-100); Nucleated Red Blood Cells Absolute Auto 0.000 K/mm3 (0.0-0.012); Nucleated Red Blood Cells Perc 0.0 % (0.0-0.2); Platelet Count Result 334 k/mm3 (150-375); Red Blood Count 3.78 M/mm3 (4.2-5.4); White Blood Count 6.3 K/mm3 (4.5-10.0)
[2024-11-12 06:39] LABS: Schistocytes None Seen
[2024-11-12 06:40] LABS: Anion Gap 5 mmol/L (4-12); Blood Urea Nitrogen 5 mg/dL (7-17); Calcium 9.2 mg/dL (8.4-10.2); Carbon Dioxide 29 mmol/L (22-30); Chloride 102 mmol/L (98-107); Estimated CRCL calculation 61 ml/min; Estimated Glomerular Filt Rate > 60; Glucose 78 mg/dL (65-110); Magnesium 1.5 mg/dL (1.6-2.3); Potassium 3.9 mmol/L (3.4-5.0); Sodium 136 mmol/L (137-145)
[2024-11-12] MEDS: PANTOPRAZOLE 40 MG TABLET PO (07:33)
[2024-11-12] MEDS: FOLIC ACID 1 MG TABLET PO (07:33)
[2024-11-12 07:43] VITALS: PULSE 79; RESP 18
[2024-11-12] MEDS: FLUTICASONE/UMECLIDIN/VILANTER 100-62.5-25 MCG ELLIPTA 1 PUFF INHALATION (07:43)
[2024-11-12 07:47] VITALS: PULSE 79; O2SAT 96
--- NOTE | 2024-11-12 10:59 | P.PNIM_ITS ---
Progress Note: A&P Assessment and Plan (1) Ileus: Code(s): K56.7 - Ileus, unspecified Status: Acute (2) GOYO (acute kidney injury): Code(s): N17.9 - Acute kidney failure, unspecified Status: Acute (3) Leukocytosis: Code(s): D72.829 - Elevated white blood cell count, unspecified Status: Acute (4) Reflux esophagitis: Code(s): K21.00 - Gastro-esophageal reflux disease with esophagitis, without bleeding Status: Acute (5) Colonic obstruction: Code(s): K56.609 - Unspecified intestinal obstruction, unspecified as to partial versus complete obstruction Status: Acute (6) Hypomagnesemia: Code(s): E83.42 - Hypomagnesemia Status: Resolved Plan 74-year-old female with history of hereditary hemochromatosis, cirrhosis, COPD, active nicotine abuse, prior alcohol use disorder, history of bowel resection, hypertension, nocturnal hypoxemia with 2 L nasal cannula at night followed by Dr. Jefferson presents to [facility] ER on 11/01/2024 with complaint of abdominal pain. She has been having loose bowel movements and nausea. She was just discharged from [facility] on 10/27/2024 with colitis, bowel obstruction, pneumonia, UTI. ER workup revealed leukocytosis, serum creatinine 1.25, contaminated urinalysis, CT abdomen pelvis reveals multiple loops of dilated fluid-filled featureless small bowel with segments of mural thickening within portions of the colon, suggestive of ileus. Chest CT demonstrating moderate emphysema with persistent tree-in-bud opacities in the dependent left lower lobe consistent with bronchiolitis. Chronic cavitary lesion at right apex peer She was given IV fluids and Zosyn. C diff was negative. ---- NG tube placed on 11/03/2024 for GI decompression. NG tube removed on 11/05/2024. Underwent sigmoidoscopy and endoscopy on 11/07/2024. EGD reveals a small hiatal hernia at the GE junction, reflux esophagitis grade A, normal stomach, and duodenum. Four biopsies taken from the antrum and body. Colonoscopy incomplete as there was severe angulation 35 cm above the anal verge that precluded any passage. Barium enema performed on 11/08/2024: Contrast unable to passed through the high-grade stricture in the distal sigmoid colon. General surgery consulted, anticipate surgical intervention soon. Discussed risks versus benefits of TPN and patient declines. He is tolerating diet. She had a bowel movement on 11/11/2024. Continue to encourage ambulati on. Zosyn discontinued Blood and stool cultures 11/01/2024: No growth, final. Hyponatremia, sodium trending down. We will need to continue monitoring. Blood pressures were consistently elevated until amlodipine 5 mg p.o. q.a.m. was started on 11/09/2024. Continue to monitor. Hydralazine p.r.n. for SBP greater than 180. Hypo magnesium: Resolved status post replacement Leukocytosis: No bandemia identified. Patient is afebrile, no symptomatology to indicate infection. Continue to trend. Resolved on 11/11/2024 without intervention. Patient wishes to be full code. Low residue diet. Holding Lovenox 40 mg subQ q.a.m. on 11/12/2024 possible surgical intervention. Subjective Date/time seen: 11/12/24 10:59 Interval history: Planned surgery 11/[address] urethral stents.No acute events over night. Review of Systems Review of Systems: 12 systems were reviewed and are negativ e except for as per HPI. All systems reviewed & are unremarkable except as noted in HPI and below (Subjective) Exam Narrative: GENERAL: Pleasant, in no acute distress. Well-nourished. - EYES: EOMI. Anicteric. - HENT: Moist mucous membranes. - LUNGS: Clear to auscultation bilateral ly, no wheezing, rhonchi, or rales. - CARDIOVASCULAR: Regular rate and rhyth m. No murmur. No JVD. - ABDOMEN: Soft, non-tender and non-dist ended. No palpable masses. Hypoactive bowel sounds - EXTREMITIES: No edema. Peripheral puls es 2+. Non-tender. - NEUROLOGIC: No focal neurological defi cits. CN II-XII grossly intact. - PSYCHIATRIC: Awake, Alert and oriented x 3. Appropriate mood and affect. - SKIN: No rashes or lesions. Warm. - LYMPH: No cervical lymphadenopathy. Const: General: comfortable and no acute distress Orientation/consciousness: patient oriented x3 Other: A&O x3 HENMT: Mouth: Yes moist mucous membranes Eyes: Pupils: Equal, round and reactive pupils present Neck: Neck: supple Resp: Effort & Inspection: normal respiratory effort Auscultation: clear to auscultation bilaterally Cardio: Rate: regular rate Rhythm: regular rhythm GI: Inspection: non-distended Auscultation: normal bowel sounds Other: Slight distension, but soft. No tenderness to palpations. Neuro: General: patient oriented x3 Cranial nerves: Yes Equal, round and reactive pupils present Motor exam (neuro): 5/5 motor strength present throughout Extrem: General: no edema Objective Data Vital Signs Vital Signs: Vital Signs - 24 hr 11/11/24 14:00 11/11/24 20:00 11/11/24 21:06 Temperature 98.0 F 98.0 F Pulse Rate 73 65 65 Respiratory Rate 16 16 16 Blood Pressure 128/60 156/75 H Pulse Oximetry 98 100 100 Oxygen Delivery Nasal Cannula Oxygen Flow Rate 2 11/12/24 05:51 11/12/24 07:43 11/12/24 07:47 Temperature 97.6 F Pulse Rate 66 79 79 Respiratory Rate 16 18 Blood Pressure 156/66 H Pulse Oximetry 96 96 Oxygen Delivery Room Air Oxygen Flow Rate 11/12/24 08:00 Temperature Pulse Rate Respiratory Rate Blood Pressure Pulse Oximetry Oxygen Delivery Room Air Oxygen Flow Rate Intake/Output Intake/Output: Intake & Output 11/09/24 11/10/24 11/11/24 11/12/24 23:59 23:59 23:59 23:59 Intake Total 944 560 2131 670 Balance 009 892 9958 670 Meds/Results Medications: Active Medications Generic Name Dose Route Start Last Admin Trade Name Freq PRN Reason Stop Dose Admin Acetaminophen 650 mg 11/01/24 17:53 Acetaminophen 325 Mg Tablet PO Q4H PRN Mild Pain (1-3) or Fever Hydrocodone Bitart/Acetaminophen 1 tab 11/01/24 17:53 11/11/24 20:55 Hydrocodone/Acetaminophen (*Crx) 5-325 Mg Tablet PO 1 tab Q4H PRN Administration Moderate Pain (4-6) Albuterol 2 puff 11/01/24 22:09 Albuterol Sulfate (*Sp) Aerosol 1 Puff INHALATION Q4-6H PRN shortness of breath or wheezing Amlodipine Besylate 5 mg 11/09/24 10:50 11/12/24 07:33 Amlodipine Besylate 5 Mg Tablet PO 5 mg DAILY BETTINA Administration Aspirin 81 mg 11/02/24 09:00 11/11/24 08:42 Aspirin 81 Mg Enteric Tablet PO 81 mg DAILY BETTINA Administration Enoxaparin Sodium 40 mg 11/02/24 09:00 11/11/24 10:46 Enoxaparin 40 Mg/0.4 Ml Syringe SUB-Q 40 mg DAILY BETTINA Administration Fluticasone/Umeclidinium/Vilanterol 1 puff 11/02/24 09:00 11/12/24 07:43 Fluticasone/Umeclidin/Vilanter 100-62.5-25 Mcg Ellipta INHALATION 1 puff DAILY BETTINA Administration Folic Acid 1 mg 11/02/24 09:00 11/12/24 07:33 Folic Acid 1 Mg Tablet PO 1 mg DAILY BETTINA Administration Hydralazine HCl 5 mg 11/04/24 15:16 11/05/24 20:16 Hydralazine Hcl 20 Mg/Ml Vial IV PUSH 5 mg Q8H PRN Administration Blood Pressure - High Miscellaneous Information 1 each 11/11/24 00:01 Please Renew Morphine. Per [employer] Procedure, It Will Discontinue If Not Renewed XX 12/11/24 00:00 CLARIFY BETTINA Morphine Sulfate 2 mg 11/03/24 18:37 11/06/24 05:33 Morphine Sulfate (*Crx) 2 Mg/Ml Inj IV PUSH 2 mg Q3H PRN Administration Pain Rated 4-6 Ondansetron HCl 4 mg 11/01/24 18:05 11/07/24 05:13 Ondansetron Inj 4 Mg/2 Ml Vial IV PUSH 4 mg Q4H PRN Administration Nausea And Vomiting Pantoprazole Sodium 40 mg 11/08/24 17:05 11/12/24 07:33 Pantoprazole 40 Mg Tablet PO 40 mg QAM BETTINA Administration Phenol 1 spray 11/04/24 11:58 11/04/24 13:37 Phenol/Sod Pheno [place] Garcia (*Bkc) MUCOUS MEM 1 spray PRN PRN Administration Sore Throat Radiology Results: ITS Impressions Chest X-Ray 11/01/24 10:18 Impression: 1: Progression of spiculated right upper lobe mass with associated calcifications. Cannot exclude malignancy. Recommend further evaluation with CT- guided biopsy or pet/CT scan. Abdomen/Pelvis CT 11/01/24 10:37 IMPRESSION: Multiple loops of dilated, fluid-filled, featureless small bowel with segments of mural thickening within portions of the the colon (which demonstrate diverticulosis). This constellation of findings suggest a possible ileus, rather than a discrete bowel obstruction. No fat plane between the uterus and the thickened loop of distal sigmoid colon with presacral induration in the left hemipelvis. Chest CT 11/01/24 11:15 IMPRESSION: 1. Mild to moderate emphysema with persistent tree-in-bud opacities in the dependent left lower lobe consistent with bronchiolitis. 2. No recent interval change in a 4.6 x 3.5 similar thick-walled centrally cavitary lesion at the right apex which is decreased in size and degree of wall thickening since 2022, likely scarring as sequela of chronic infection. Abdomen X-Ray 11/07/24 15:01 Impression: 1: Improved small bowel dilation compared with 11/03/2024, likely resolving ileu s or partial obstruction. Barium Enema 11/08/24 12:44 IMPRESSION: 1. Contrast unable to be passage beyond a high-grade stricture in the distal sigmoid colon which could be due to inflammation or scarring related to reported recent colitis/diverticulitis but which also raises significant concern for malignancy. Could consider repeat single contrast water-soluble enema following sufficient time to allow for resolution of any potential contributing inflammation. Labs Labs: Laboratory Results - last 24 hr 11/12/24 05:40 WBC 6.3 RBC 3.78 L Hgb 12.2 Hct 36.3 L MCV 96.0 MCH 32.3 MCHC 33.6 RDW 13.7 Plt Count 334 MPV 9.6 Immature Gran % (Auto) 0.3 Neut % (Auto) 37.1 L Lymph % (Auto) 39.9 [place] % (Auto) 11.6 H Eos % (Auto) 10.3 H Baso % (Auto) 0.8 Lymph # (Auto) 2.51 [place] # (Auto) 0.7 H Eos # (Auto) 0.7 H Baso # (Auto) 0.1 Abs Immat Gran (auto) 0.02 Absolute Neuts (auto) 2.3 Absolute Nucleated RBC 0.000 Band Neutrophils % Not Reportable Nucleated RBC % 0.0 Platelet Estimate Adequate Schistocytes None seen Sodium 136 L Potassium 3.9 Chloride 102 Carbon Dioxide 29 Anion Gap 5 BUN 5 L Creatinine 0.63 L Estim Creat Clear Calc 61 Estimated GFR > 60 Glucose 78 Calcium 9.2 Magnesium 1.5 L Quality VTE Prophylaxis VTE prophylaxis: mechanical ordered and pharmacologic ordered Hospitalist MIPS Advance Care Plan I have confirmed that the patient's Advanced Care Plan is present, code status is documented, or surrogate decision maker is listed in patient medical record.: Yes Medication Reconciliation I have utilized all available resources to obtain, update and review the patients current medications (includes all prescriptions, OTC, herbals, cannabis, and nutritional supplements).: Yes
--- NOTE | 2024-11-12 11:00 | P.PNGS_ITS ---
Progress Note: A&P Assessment and Plan (1) Colonic obstruction: Code(s): K56.609 - Unspecified intestinal obstruction, unspecified as to partial versus complete obstruction Status: Acute Assessment and Plan: * Sigmoid stricture on colonoscopy not able to be traversed. No biopsies. Bowels continue to move and there are no signs of a high-grade obstruction currently. * Will need a colon resection, which will likely be Tuesday. Tomorrow we will put her on clear liquids and plan her bowel prep. * She can continue a solid diet for today, will add Ensure supplements as she is still not eating much (about 50% of her meals). Continue with medical/nutritional optimization. Plan I have discussed the patient's case and plan of care with Dr. Ornelas. Subjective Subjective Date/Time Seen: 11/12/24 11:00 Patient reports: no new complaints, tolerating a regular diet, voiding w/o difficulty, flatus, bowel movement and afebrile Interval history: Patient with no acute events overnight. No new complaints. No abdominal pain. She is passing flatus. No BM today but multiple large BMs yesterday. Exam Const: General: comfortable and no acute distress Orientation/consciousness: patient oriented x3 GI: Inspection: non-distended GI Palp: Yes Soft to palpation, No Tenderness to palpation present (GI), No Guarding due to palpation present (GI) and No Rebound tenderness present Auscultation: normal bowel sounds Objective Data Vital Signs Vital Signs: Vital Signs - 24 hr 11/11/24 14:00 11/11/24 20:00 11/11/24 21:06 Temperature 98.0 F 98.0 F Pulse Rate 73 65 65 Respiratory Rate 16 16 16 Blood Pressure 128/60 156/75 H Pulse Oximetry 98 100 100 Oxygen Delivery Nasal Cannula Oxygen Flow Rate 2 11/12/24 05:51 11/12/24 07:43 11/12/24 07:47 Temperature 97.6 F Pulse Rate 66 79 79 Respiratory Rate 16 18 Blood Pressure 156/66 H Pulse Oximetry 96 96 Oxygen Delivery Room Air Oxygen Flow Rate 11/12/24 08:00 Temperature Pulse Rate Respiratory Rate Blood Pressure Pulse Oximetry Oxygen Delivery Room Air Oxygen Flow Rate Intake/Output Intake/Output: Intake & Output 11/09/24 11/10/24 11/11/24 11/12/24 23:59 23:59 23:59 23:59 Intake Total 682 228 0561 670 Balance 549 468 9557 670 Meds/Results Medications: Active Medications Generic Name Dose Route Start Last Admin Trade Name Freq PRN Reason Stop Dose Admin Acetaminophen 650 mg 11/01/24 17:53 Acetaminophen 325 Mg Tablet PO Q4H PRN Mild Pain (1-3) or Fever Hydrocodone Bitart/Acetaminophen 1 tab 11/01/24 17:53 11/11/24 20:55 Hydrocodone/Acetaminophen (*Crx) 5-325 Mg Tablet PO 1 tab Q4H PRN Administration Moderate Pain (4-6) Albuterol 2 puff 11/01/24 22:09 Albuterol Sulfate (*Sp) Aerosol 1 Puff INHALATION Q4-6H PRN shortness of breath or wheezing Amlodipine Besylate 5 mg 11/09/24 10:50 11/12/24 07:33 Amlodipine Besylate 5 Mg Tablet PO 5 mg DAILY BETTINA Administration Aspirin 81 mg 11/02/24 09:00 11/11/24 08:42 Aspirin 81 Mg Enteric Tablet PO 81 mg DAILY BETTINA Administration Enoxaparin Sodium 40 mg 11/02/24 09:00 11/11/24 10:46 Enoxaparin 40 Mg/0.4 Ml Syringe SUB-Q 40 mg DAILY BETTINA Administration Fluticasone/Umeclidinium/Vilanterol 1 puff 11/02/24 09:00 11/12/24 07:43 Fluticasone/Umeclidin/Vilanter 100-62.5-25 Mcg Ellipta INHALATION 1 puff DAILY BETTINA Administration Folic Acid 1 mg 11/02/24 09:00 11/12/24 07:33 Folic Acid 1 Mg Tablet PO 1 mg DAILY BETTINA Administration Hydralazine HCl 5 mg 11/04/24 15:16 11/05/24 20:16 Hydralazine Hcl 20 Mg/Ml Vial IV PUSH 5 mg Q8H PRN Administration Blood Pressure - High Miscellaneous Information 1 each 11/11/24 00:01 Please Renew Morphine. Per [employer] Procedure, It Will Discontinue If Not Renewed XX 12/11/24 00:00 CLARIFY BETTINA Morphine Sulfate 2 mg 11/03/24 18:37 11/06/24 05:33 Morphine Sulfate (*Crx) 2 Mg/Ml Inj IV PUSH 2 mg Q3H PRN Administration Pain Rated 4-6 Ondansetron HCl 4 mg 11/01/24 18:05 11/07/24 05:13 Ondansetron Inj 4 Mg/2 Ml Vial IV PUSH 4 mg Q4H PRN Administration Nausea And Vomiting Pantoprazole Sodium 40 mg 11/08/24 17:05 11/12/24 07:33 Pantoprazole 40 Mg Tablet PO 40 mg QAM BETTINA Administration Phenol 1 spray 11/04/24 11:58 11/04/24 13:37 Phenol/Sod Pheno [place] Garcia (*Bkc) MUCOUS MEM 1 spray PRN PRN Administration Sore Throat Radiology Results: ITS Impressions Chest X-Ray 11/01/24 10:18 Impression: 1: Progression of spiculated right upper lobe mass with associated calcifications. Cannot exclude malignancy. Recommend further evaluation with CT- guided biopsy or pet/CT scan. Abdomen/Pelvis CT 11/01/24 10:37 IMPRESSION: Multiple loops of dilated, fluid-filled, featureless small bowel with segments of mural thickening within portions of the the colon (which demonstrate diverticulosis). This constellation of findings suggest a possible ileus, rather than a discrete bowel obstruction. No fat plane between the uterus and the thickened loop of distal sigmoid colon with presacral induration in the left hemipelvis. Chest CT 11/01/24 11:15 IMPRESSION: 1. Mild to moderate emphysema with persistent tree-in-bud opacities in the dependent left lower lobe consistent with bronchiolitis. 2. No recent interval change in a 4.6 x 3.5 similar thick-walled centrally cavitary lesion at the right apex which is decreased in size and degree of wall thickening since 2022, likely scarring as sequela of chronic infection. Abdomen X-Ray 11/07/24 15:01 Impression: 1: Improved small bowel dilation compared with 11/03/2024, likely resolving ileus or partial obstruction. Barium Enema 11/08/24 12:44 IMPRESSION: 1. Contrast unable to be passage beyond a high-grade stricture in the distal sigmoid colon which could be due to inflammation or scarring related to reported recent colitis/diverticulitis but which also raises significant concern for malignancy. Could consider repeat single contrast water-soluble enema following sufficient time to allow for resolution of any potential contributing inflammation. Labs Labs: Laboratory Results - last 24 hr 11/12/24 05:40 WBC 6.3 RBC 3.78 L Hgb 12.2 Hct 36.3 L MCV 96.0 MCH 32.3 MCHC 33.6 RDW 13.7 Plt Count 334 MPV 9.6 Immature Gran % (Auto) 0.3 Neut % (Auto) 37.1 L Lymph % (Auto) 39.9 [place] % (Auto) 11.6 H Eos % (Auto) 10.3 H Baso % (Auto) 0.8 Lymph # (Auto) 2.51 [place] # (Auto) 0.7 H Eos # (Auto) 0.7 H Baso # (Auto) 0.1 Abs Immat Gran (auto) 0.02 Absolute Neuts (auto) 2.3 Absolute Nucleated RBC 0.000 Band Neutrophils % Not Reportable Nucleated RBC % 0.0 Platelet Estimate Adequate Schistocytes None seen Sodium 136 L Potassium 3.9 Chloride 102 Carbon Dioxide 29 Anion Gap 5 BUN 5 L Creatinine 0.63 L Estim Creat Clear Calc 61 Estimated GFR > 60 Glucose 78 Calcium 9.2 Magnesium 1.5 L
[2024-11-12 14:00] VITALS: BP 129/73; PULSE 72; RESP 16; TEMP 36.4; O2SAT 94
[2024-11-12] MEDS: HYDROcodone/acetaminophen (*CRX) 5-325 MG TABLET 1 TAB PO (16:34)
[2024-11-12 20:00] VITALS: PULSE 65; RESP 18; O2SAT 95
--- NOTE | 2024-11-12 20:34 | P.PNGI_ITS ---
Progress Note: A&P Assessment and Plan (1) Colonic obstruction: Code(s): K56.609 - Unspecified intestinal obstruction, unspecified as to partial versus complete obstruction Status: Acute Assessment and Plan: liquid diet tomorrow and surgery is planning partial colectomy no major changes will follow as needed (2) Ileus: Code(s): K56.7 - Ileus, unspecified Status: Acute (3) Cirrhosis: Code(s): K74.60 - Unspecified cirrhosis of liver Status: Acute Subjective Date/time seen: 11/12/24 20:34 Interval history: no new event, she is comfortable, passing gas Review of Systems Review of Systems: All systems reviewed & are unremarkable except as noted in HPI and below Exam Const: General: comfortable and no acute distress Orie ntation/consciousness: patient oriented x3 HENMT: Face/Nose/Sinus: Normal nares present Eyes: Sclera: sclerae normal Neck: Neck: supple Resp: Effort & Inspection: normal respiratory effort Cardio: Rate: regular rate GI: Inspection: non-distended GI Palp: Yes Soft to palpation, No Tenderness to palpation present (GI), No Guarding due to palpation present (GI) and No Rebound tenderness present Auscultation: normal bowel sounds Skin: General skin exam: normal color Neuro: Speech: normal speech Motor exam (neuro): 5/5 motor strength present throughout Objective Data Vital Signs Vital Signs: Vital Signs - 24 hr 11/11/24 21:06 11/12/24 05:51 11/12/24 07:43 Temperature 98.0 F 97.6 F Pulse Rate 65 66 79 Respiratory Rate 16 16 18 Blood Pressure 156/75 H 156/66 H Pulse Oximetry 100 96 Oxygen Delivery 11/12/24 07:47 11/12/24 08:00 11/12/24 14:00 Temperature 97.6 F Pulse Rate 79 72 Respiratory Rate 16 Blood Pressure 129/73 Pulse Oximetry 96 94 Oxygen Delivery Room Air Room Air Intake/Output Intake/Output: Intake & Output 11/09/24 11/10/24 11/11/24 11/12/24 23:59 23:59 23:59 23:59 Intake Total 175 441 7862 1030 Balance 723 099 5285 1030 Meds/Results Medications: Active Medications Generic Name Dose Route Start Last Admin Trade Name Freq PRN Reason Stop Dose Admin Acetaminophen 650 mg 11/01/24 17:53 Acetaminophen 325 Mg Tablet PO Q4H PRN Mild Pain (1-3) or Fever Hydrocodone Bitart/Acetaminophen 1 tab 11/01/24 17:53 11/12/24 16:34 Hydrocodone/Acetaminophen (*Crx) 5-325 Mg Tablet PO 1 tab Q4H PRN Administration Moderate Pain (4-6) Albuterol 2 puff 11/01/24 22:09 Albuterol Sulfate (*Sp) Aerosol 1 Puff INHALATION Q4-6H PRN shortness of breath or wheezing Amlodipine Besylate 5 mg 11/09/24 10:50 11/12/24 07:33 Amlodipine Besylate 5 Mg Tablet PO 5 mg DAILY BETTINA Administration Aspirin 81 mg 11/02/24 09:00 11/11/24 08:42 Aspirin 81 Mg Enteric Tablet PO 81 mg DAILY BETTINA Administration Enoxaparin Sodium 40 mg 11/02/24 09:00 11/11/24 10:46 Enoxaparin 40 Mg/0.4 Ml Syringe SUB-Q 40 mg DAILY BETTINA Administration Fluticasone/Umeclidinium/Vilanterol 1 puff 11/02/24 09:00 11/12/24 07:43 Fluticasone/Umeclidin/Vilanter 100-62.5-25 Mcg Ellipta INHALATION 1 puff DAILY BETTINA Administration Folic Acid 1 mg 11/02/24 09:00 11/12/24 07:33 Folic Acid 1 Mg Tablet PO 1 mg DAILY BETTINA Administration Hydralazine HCl 5 mg 11/04/24 15:16 11/05/24 20:16 Hydralazine Hcl 20 Mg/Ml Vial IV PUSH 5 mg Q8H PRN Administration Blood Pressure - High Ondansetron HCl 4 mg 11/01/24 18:05 11/07/24 05:13 Ondansetron Inj 4 Mg/2 Ml Vial IV PUSH 4 mg Q4H PRN Administration Nausea And Vomiting Pantoprazole Sodium 40 mg 11/08/24 17:05 11/12/24 07:33 Pantoprazole 40 Mg Tablet PO 40 mg QAM BETTINA Administration Phenol 1 spray 11/04/24 11:58 11/04/24 13:37 Phenol/Sod Pheno [place] Garcia (*Bkc) MUCOUS MEM 1 spray PRN PRN Administration Sore Throat Radiology Results: ITS Impressions Chest X-Ray 11/01/24 10:18 Impression: 1: Progression of spiculated right upper lobe mass with associated calcifications. Cannot exclude malignancy. Recommend further evaluation with CT- guided biopsy or pet/CT scan. Abdomen/Pelvis CT 11/01/24 10:37 IMPRESSION: Multiple loops of dilated, fluid-filled, featureless small bowel with segments of mural thickening within portions of the the colon (which demonstrate diverticulosis). This constellation of findings suggest a possible ileus, rather than a discrete bowel obstruction. No fat plane between the uterus and the thickened loop of distal sigmoid colon with presacral induration in the left hemipelvis. Chest CT 11/01/24 11:15 IMPRESSION: 1. Mild to moderate emphysema with persistent tree-in-bud opacities in the dependent left lower lobe consistent with bronchiolitis. 2. No recent interval change in a 4.6 x 3.5 similar thick-walled centrally cavitary lesion at the right apex which is decreased in size and degree of wall thickening since 2022, likely scarring as sequela of chronic infection. Abdomen X-Ray 11/07/24 15:01 Impression: 1: Improved small bowel dilation compared with 11/03/2024, likely resolving ileus or partial obstruction. Barium Enema 11/08/24 12:44 IMPRESSION: 1. Contrast unable to be passage beyond a high-grade stricture in the distal sigmoid colon which could be due to inflammation or scarring related to reported recent colitis/diverticulitis but which also raises significant concern for malignancy. Could consider repeat single contrast water-soluble enema following sufficient time to allow for resolution of any potential contributing inflammation. Labs Labs: Laboratory Results - last 24 hr 11/12/24 05:40 WBC 6.3 RBC 3.78 L Hgb 12.2 Hct 36.3 L MCV 96.0 MCH 32.3 MCHC 33.6 RDW 13.7 Plt Count 334 MPV 9.6 Immature Gran % (Auto) 0.3 Neut % (Auto) 37.1 L Lymph % (Auto) 39.9 [place] % (Auto) 11.6 H Eos % (Auto) 10.3 H Baso % (Auto) 0.8 Lymph # (Auto) 2.51 [place] # (Auto) 0.7 H Eos # (Auto) 0.7 H Baso # (Auto) 0.1 Abs Immat Gran (auto) 0.02 Absolute Neuts (auto) 2.3 Absolute Nucleated RBC 0.000 Band Neutrophils % Not Reportable Nucleated RBC % 0.0 Platelet Estimate Adequate Schistocytes None seen Sodium 136 L Potassium 3.9 Chloride 102 Carbon Dioxide 29 Anion Gap 5 BUN 5 L Creatinine 0.63 L Estim Creat Clear Calc 61 Estimated GFR > 60 Glucose 78 Calcium 9.2 Magnesium 1.5 L
[2024-11-12 21:55] VITALS: BP 129/67; PULSE 65; RESP 18; TEMP 36.4; O2SAT 95
[2024-11-13 05:51] VITALS: BP 133/62; PULSE 67; RESP 18; TEMP 36.1; O2SAT 95
[2024-11-13] MEDS: FLUTICASONE/UMECLIDIN/VILANTER 100-62.5-25 MCG ELLIPTA 1 PUFF INHALATION (07:57)
[2024-11-13 07:59] VITALS: PULSE 70; RESP 18
[2024-11-13] MEDS: FOLIC ACID 1 MG TABLET PO (09:06)
[2024-11-13] MEDS: PANTOPRAZOLE 40 MG TABLET PO (09:06)
--- NOTE | 2024-11-13 11:10 | P.PNGS_ITS ---
Progress Note: A&P Assessment and Plan (1) Colonic obstruction: Code(s): K56.609 - Unspecified intestinal obstruction, unspecified as to partial versus complete obstruction Status: Acute Assessment and Plan: * Sigmoid stricture on colonoscopy not able to be traversed. No biopsies. Hypaque enema c/w high-grade obstruction and test was aborted d/t difficulty tolerating the enema. She has no clinical signs of a high-grade obstruction at this time. Bowels are moving and she is tolerating a regular diet. We tentatively have her on the schedule for for hand assisted laparoscopic sigmoid colectomy, possible ostomy, by Dr. Ornelas. Will discuss imaging findings with the radiologist and potentially order a repeat Hypaque enema to re-evaluate the sigmoid stricture now that her symptoms have resolved. * She can continue a solid diet with Ensure supplement for today. Depending on Hypaque enema results, will switch her to a clear liquid diet and order a bowel prep tomorrow to prepare for surgery if she still has a significant stricture. Plan I have discussed the patient's case and plan of care with Dr. Ornelas. Subjective Subjective Date/Time Seen: 11/13/24 11:10 Patient reports: no new complaints, tolerating a regular diet, flatus, bowel movement and afebrile Interval history: Patient not having any abdominal pain. Still tolerating a solid diet. Eating more and able to drink the ensures. She continues to have bowel movements daily. Today, she reports having a normal formed large bowel movement. Exam Const: General: comfortable and no acute distress Orientation/consciousness: patient oriented x3 GI: Inspection: non-distended GI Palp: Yes Soft to palpation, No Tenderness to palpation present (GI), No Guarding due to palpation present (GI) and No R ebound tenderness present Auscultation: normal bowel sounds Objective Data Vital Signs Vital Signs: Vital Signs - 24 hr 11/12/24 14:00 11/12/24 20:00 11/12/24 21:55 Temperature 97.6 F 97.5 F L Pulse Rate 72 65 65 Respiratory Rate 16 18 18 Blood Pressure 129/73 129/67 Pulse Oximetry 94 95 95 Oxygen Delivery Nasal Cannula Oxygen Flow Rate 2 11/13/24 05:51 11/13/24 07:59 11/13/24 08:00 Temperature 97.0 F L Pulse Rate 67 70 Respiratory Rate 18 18 Blood Pressure 133/62 Pulse Oximetry 95 Oxygen Delivery Room Air Oxygen Flow Rate Intake/Output Intake/Output: Intake & Output 11/10/24 11/11/24 11/12/24 11/13/24 23:59 23:59 23:59 23:59 Intake Total 720 1480 1030 Balance 720 1480 1030 Meds/Results Medications: Active Medications Generic Name Dose Route Start Last Admin Trade Name Freq PRN Reason Stop Dose Admin Acetaminophen 650 mg 11/01/24 17:53 Acetaminophen 325 Mg Tablet PO Q4H PRN Mild Pain (1-3) or Fever Hydrocodone Bitart/Acetaminophen 1 tab 11/01/24 17:53 11/12/24 16:34 Hydrocodone/Acetaminophen (*Crx) 5-325 Mg Tablet PO 1 tab Q4H PRN Administration Moderate Pain (4-6) Albuterol 2 puff 11/01/24 22:09 Albuterol Sulfate (*Sp) Aerosol 1 Puff INHALATION Q4-6H PRN shortness of breath or wheezing Amlodipine Besylate 5 mg 11/09/24 10:50 11/13/24 09:06 Amlodipine Besylate 5 Mg Tablet PO 5 mg DAILY BETTINA Administration Aspirin 81 mg 11/02/24 09:00 11/11/24 08:42 Aspirin 81 Mg Enteric Tablet PO 81 mg DAILY BETTINA Administration Enoxaparin Sodium 40 mg 11/02/24 09:00 11/11/24 10:46 Enoxaparin 40 Mg/0.4 Ml Syringe SUB-Q 40 mg DAILY BETTINA Administration Fluticasone/Umeclidinium/Vilanterol 1 puff 11/02/24 09:00 11/13/24 07:57 Fluticasone/Umeclidin/Vilanter 100-62.5-25 Mcg Ellipta INHALATION 1 puff DAILY BETTINA Administration Folic Acid 1 mg 11/02/24 09:00 11/13/24 09:06 Folic Acid 1 Mg Tablet PO 1 mg DAILY BETTINA Administration Hydralazine HCl 5 mg 11/04/24 15:16 11/05/24 20:16 Hydralazine Hcl 20 Mg/Ml Vial IV PUSH 5 mg Q8H PRN Administration Blood Pressure - High Ondansetron HCl 4 mg 11/01/24 18:05 11/07/24 05:13 Ondansetron Inj 4 Mg/2 Ml Vial IV PUSH 4 mg Q4H PRN Administration Nausea And Vomiting Pantoprazole Sodium 40 mg 11/08/24 17:05 11/13/24 09:06 Pantoprazole 40 Mg Tablet PO 40 mg QAM BETTINA Administration Phenol 1 spray 11/04/24 11:58 11/04/24 13:37 Phenol/Sod Pheno [place] Garcia (*Bkc) MUCOUS MEM 1 spray PRN PRN Administration Sore Throat Radiology Results: ITS Impressions Chest X-Ray 11/01/24 10:18 Impression: 1: Progression of spiculated right upper lobe mass with associated calcifications. Cannot exclude malignancy. Recommend further evaluation with CT- guided biopsy or pet/CT scan. Abdomen/Pelvis CT 11/01/24 10:37 IMPRESSION: Multiple loops of dilated, fluid-filled, featureless small bowel with segments of mural thickening within portions of the the colon (which demonstrate diverticulosis). This constellation of findings suggest a possible ileus, rather than a discrete bowel obstruction. No fat plane between the uterus and the thickened loop of distal sigmoid colon with presacral induration in the left hemipelvis. Chest CT 11/01/24 11:15 IMPRESSION: 1. Mild to moderate emphysema with persistent tree-in-bud opacities in the dependent left lower lobe consistent with bronchiolitis. 2. No recent interval change in a 4.6 x 3.5 similar thick-walled centrally cavitary lesion at the right apex which is decreased in size and degree of wall thickening since 2022, likely scarring as sequela of chronic infection. Abdomen X-Ray 11/07/24 15:01 Impression: 1: Improved small bowel dilation compared with 11/03/2024, likely resolving ileus or partial obstruction. Barium Enema 11/08/24 12:44 IMPRESSION: 1. Contrast unable to be passage beyond a high-grade stricture in the distal sigmoid colon which could be due to inflammation or scarring related to reported recent colitis/diverticulitis but which also raises significant concern for malignancy. Could consider repeat single contrast water-soluble enema following sufficient time to allow for resolution of any potential contributing inflammation.
--- NOTE | 2024-11-13 12:24 | PCNFU ---
Nutrition Follow-Up Complete: Inadequate oral intake related to colon stricture as evidenced by need for TPN Goal:Meet estimated nutrition needs Pt meeting goal via PO intake Pt current nutrition is Low fiber diet, Ensure BID. Nutrition recommendation: continue with current plan of care Last recorded weight is 64.6 kg. Bowel Motility: +BM 11/13 Labs Reviewed: Hct:36.3, NA:136, BUN:5, Cr:0.6 Meds Noted: lovenox, protonix Skin: WNL Additional Notes: Pt no longer on TPN, diet is low fiber and intake good at 75-100%, pt tolerating well, BM today. Ensure shakes BID in place. Agree with orders. Monitoring intakes, plan of care, weights, labs Follow up in 5 days.
--- NOTE | 2024-11-13 12:54 | P.PNIM_ITS ---
Progress Note: A&P Assessment and Plan (1) Ileus: Code(s): K56.7 - Ileus, unspecified Status: Acute (2) GOYO (acute kidney injury): Code(s): N17.9 - Acute kidney failure, unspecified Status: Acute (3) Leukocytosis: Code(s): D72.829 - Elevated white blood cell count, unspecified Status: Acute (4) Reflux esophagitis: Code(s): K21.00 - Gastro-esophageal reflux disease with esophagitis, without bleeding Status: Acute (5) Colonic obstruction: Code(s): K56.609 - Unspecified intestinal obstruction, unspecified as to partial versus complete obstruction Status: Acute (6) Hypomagnesemia: Code(s): E83.42 - Hypomagnesemia Status: Resolved Plan 74-year-old female with history of hereditary hemochromatosis, cirrhosis, COPD, active nicotine abuse, prior alcohol use disorder, history of bowel resection, hypertension, nocturnal hypoxemia with 2 L nasal cannula at night followed by Dr. Jefferson presents to [facility] ER on 11/01/2024 with complaint of abdominal pain. She has been having loose bowel movements and nausea. She was just discharged from [facility] on 10/27/2024 with colitis, bowel obstruction, pneumonia, UTI. ER workup revealed leukocytosis, serum creatinine 1.25, contaminated urinalysis, CT abdomen pelvis reveals multiple loops of dilated fluid-filled featureless small bowel with segments of mural thickening within portions of the colon, suggestive of ileus. Chest CT demonstrating moderate emphysema with persistent tree-in-bud opacities in the dependent left lower lobe consistent with bronchiolitis. Chronic cavitary lesion at right apex peer She was given IV fluids and Zosyn. C diff was negative. ---- NG tube placed on 11/03/2024 for GI decompression. NG tube removed on 11/05/2024. Underwent sigmoidoscopy and endoscopy on 11/07/2024. EGD reveals a small hiatal hernia at the GE junction, reflux esophagitis grade A, normal stomach, and duodenum. Four biopsies taken from the antrum and body. Colonoscopy incomplete as there was severe angulation 35 cm above the anal verge that precluded any passage. Barium enema performed on 11/08/2024: Contrast unable to passed through the high-grade stricture in the distal sigmoid colon. General surgery consulted, anticipate surgical intervention soon. Discussed risks versus benefits of TPN and patient declines. He is tolerating diet. She had a bowel movement on 11/11/2024. Continue to encourage ambulati on. Zosyn discontinued Blood and stool cultures 11/01/2024: No growth, final. Hyponatremia, sodium trending down. We will need to continue monitoring. Blood pressures were consistently elevated until amlodipine 5 mg p.o. q.a.m. was started on 11/09/2024. Continue to monitor. Hydralazine p.r.n. for SBP greater than 180. Hypo magnesium: Resolved status post replacement Leukocytosis: No bandemia identified. Patient is afebrile, no symptomatology to indicate infection. Continue to trend. Resolved on 11/11/2024 without intervention. Patient wishes to be full code. Low residue diet. Holding Lovenox 40 mg subQ q.a.m. on 11/12/2024 possible surgical intervention. 11/13: She can continue a solid diet with Ensure supplement for today. Depending on Hypaque enema results, surgery will switch her to a clear liquid diet and order a bowel prep tomorrow to prepare for surgery if she still has a significant stricture Subjective Date/time seen: 11/13/24 12:54 Interval history: Patient was tolerating diet and having bowel movement. Will discuss with itz milian for further Review of Systems Review of Systems: 12 systems were reviewed and are negativ e except for as per HPI. All systems reviewed & are unremarkable except as noted in HPI and below (Subjective) Constitutional: Constitutional: Reports as per HPI ENT: Reports as per HPI Cardiovascular: Cardiovascular: Reports as per HPI, Denies chest pain and Denies dyspnea Respiratory: Respiratory: Denies cough and Denies dyspnea Gastrointestinal: Gastrointestinal: Reports as per HPI Musculoskeletal: Musculoskeletal: Reports as per HPI Integumentary/Breasts: Skin/Breast: Reports as per HPI Psychiatric: Psychiatric: Reports as per HPI Endocrine: Endocrine: Reports no additional endocrine complaints Hematologic/Lymphatic: Hematologic/Lymphatic: Reports no additional hematolo gic/lymphatic complaints Exam Narrative: GENERAL: Pleasant, in no acute distress. Well-nourished. - EYES: EOMI. Anicteric. - HENT: Moist mucous membranes. - LUNGS: Clear to auscultation bilateral ly, no wheezing, rhonchi, or rales. - CARDIOVASCULAR: Regular rate and rhyth m. No murmur. No JVD. - ABDOMEN: Soft, non-tender and non-dist ended. No palpable masses. Hypoactive bowel sounds - EXTREMITIES: No edema. Peripheral puls es 2+. Non-tender. - NEUROLOGIC: No focal neurological defi cits. CN II-XII grossly intact. - PSYCHIATRIC: Awake, Alert and oriented x 3. Appropriate mood and affect. - SKIN: No rashes or lesions. Warm. - LYMPH: No cervical lymphadenopathy. Const: General: comfortable and no acute distress Nutritional Appearance: average body habitus Orientation/consciousness: patient oriented x3 Other: A&O x3 HENMT: Head: normal to inspection, normocephalic and atraumatic Ears: hearing grossly normal bilaterally Face/Nose/Sinus: Normal nares present Mouth: Yes moist mucous membranes Other: NGT in place Eyes: General: appearance normal, both eyes and all related structures Conjunctivae: conjunctivae normal Sclera: sclerae normal Pupils: Equal, round and reactive pupils present Neck: Neck: supple Chest: Chest palpation & inspection: normal inspection of the chest Resp: Effort & Inspection: normal respiratory effort Auscultation: clear to auscultation bilaterally Other: cough Cardio: Jugular venous distension: no JVD Rate: regular rate Rhythm: regular rhythm Heart sounds: S1 normal heart sound present and S2 normal heart sound present Peripheral pulses: Peripheral pulses 2+ throughout GI: Inspection: non-distended Auscultation: normal bowel sounds Rectal Exam: deferred Other: Slight distension, but soft. No tenderness to palpations. : General: Yes bladder normal to palpation Bimanual exam- vagina & uterus: bladder normal to palpation Skin: General skin exam: normal color and no rashes or lesions noted Neuro: General: patient oriented x3 Cranial nerves: Yes Equal, round and reactive pupils present Speech: normal speech Motor exam (neuro): 5/5 motor strength present throughout Extrem: General: no edema Psych: Appearance: grossly normal and well kempt Mental Status: mental status grossly normal Affect: normal affect Attitude: cooperative Insight: Good insight present (Psych) Judgement: Good judgement present (Psych) Objective Data Vital Signs Vital Signs: Vital Signs - 24 hr 11/12/24 14:00 11/12/24 20:00 11/12/24 21:55 Temperature 97.6 F 97.5 F L Pulse Rate 72 65 65 Respiratory Rate 16 18 18 Blood Pressure 129/73 129/67 Pulse Oximetry 94 95 95 Oxygen Delivery Nasal Cannula Oxygen Flow Rate 2 11/13/24 05:51 11/13/24 07:59 11/13/24 08:00 Temperature 97.0 F L Pulse Rate 67 70 Respiratory Rate 18 18 Blood Pressure 133/62 Pulse Oximetry 95 Oxygen Delivery Room Air Oxygen Flow Rate Intake/Output Intake/Output: Intake & Output 11/10/24 11/11/24 11/12/24 11/13/24 23:59 23:59 23:59 23:59 Intake Total 720 1480 1030 Balance 720 1480 1030 Meds/Results Medications: Active Medications Generic Name Dose Route Start Last Admin Trade Name Freq PRN Reason Stop Dose Admin Acetaminophen 650 mg 11/01/24 17:53 Acetaminophen 325 Mg Tablet PO Q4H PRN Mild Pain (1-3) or Fever Hydrocodone Bitart/Acetaminophen 1 tab 11/01/24 17:53 11/12/24 16:34 Hydrocodone/Acetaminophen (*Crx) 5-325 Mg Tablet PO 1 tab Q4H PRN Administration Moderate Pain (4-6) Albuterol 2 puff 11/01/24 22:09 Albuterol Sulfate (*Sp) Aerosol 1 Puff INHALATION Q4-6H PRN shortness of breath or wheezing Amlodipine Besylate 5 mg 11/09/24 10:50 11/13/24 09:06 Amlodipine Besylate 5 Mg Tablet PO 5 mg DAILY BETTINA Administration Aspirin 81 mg 11/02/24 09:00 11/11/24 08:42 Aspirin 81 Mg Enteric Tablet PO 81 mg DAILY BETTINA Administration Enoxaparin Sodium 40 mg 11/02/24 09:00 11/11/24 10:46 Enoxaparin 40 Mg/0.4 Ml Syringe SUB-Q 40 mg DAILY EBTTINA Administration Fluticasone/Umeclidinium/Vilanterol 1 puff 11/02/24 09:00 11/13/24 07:57 Fluticasone/Umeclidin/Vilanter 100-62.5-25 Mcg Ellipta INHALATION 1 puff DAILY BETTINA Administration Folic Acid 1 mg 11/02/24 09:00 11/13/24 09:06 Folic Acid 1 Mg Tablet PO 1 mg DAILY BETTINA Administration Hydralazine HCl 5 mg 11/04/24 15:16 11/05/24 20:16 Hydralazine Hcl 20 Mg/Ml Vial IV PUSH 5 mg Q8H PRN Administration Blood Pressure - High Ondansetron HCl 4 mg 11/01/24 18:05 11/07/24 05:13 Ondansetron Inj 4 Mg/2 Ml Vial IV PUSH 4 mg Q4H PRN Administration Nausea And Vomiting Pantoprazole Sodium 40 mg 11/08/24 17:05 11/13/24 09:06 Pantoprazole 40 Mg Tablet PO 40 mg QAM BETTINA Administration Phenol 1 spray 11/04/24 11:58 11/04/24 13:37 Phenol/Sod Pheno [place] Garcia (*Bkc) MUCOUS MEM 1 spray PRN PRN Administration Sore Throat Radiology Results: ITS Impressions Chest X-Ray 11/01/24 10:18 Impression: 1: Progression of spiculated right upper lobe mass with associated calcifications. Cannot exclude malignancy. Recommend further evaluation with CT- guided biopsy or pet/CT scan. Abdomen/Pelvis CT 11/01/24 10:37 IMPRESSION: Multiple loops of dilated, fluid-filled, featureless small bowel with segments of mural thickening within portions of the the colon (which demonstrate diverticulosis). This constellation of findings suggest a possible ileus, rather than a discrete bowel obstruction. No fat plane between the uterus and the thickened loop of distal sigmoid colon with presacral induration in the left hemipelvis. Chest CT 11/01/24 11:15 IMPRESSION: 1. Mild to moderate emphysema with persistent tree-in-bud opacities in the depen dent left lower lobe consistent with bronchiolitis. 2. No recent interval change in a 4.6 x 3.5 similar thick-walled centrally cavitary lesion at the right apex which is decreased in size and degree of wall thickening since 2022, likely scarring as sequela of chronic infection. Abdomen X-Ray 11/07/24 15:01 Impression: 1: Improved small bowel dilation compared with 11/03/2024, likely resolving ileus or partial obstruction. Barium Enema 11/08/24 12:44 IMPRESSION: 1. Contrast unable to be passage beyond a high-grade stricture in the distal sigmoid colon which could be due to inflammation or scarring related to reported recent colitis/diverticulitis but which also raises significant concern for malignancy. Could consider repeat single contrast water-soluble enema following sufficient time to allow for resolution of any potential contributing inflamm ation. Quality VTE Prophylaxis VTE prophylaxis: mechanical ordered and pharmacologic ordered Hospitalist MIPS Advance Care Plan I have confirmed that the patient's Advanced Care Plan is present, code status is documented, or surrogate decision maker is listed in patient medical record.: Yes Medication Reconciliation I have utilized all available resources to obtain, update and review the patients current medications (includes all prescriptions, OTC, herbals, cannabis, and nutritional supplements).: Yes
[2024-11-13 13:16] LABS: Hematocrit 38.7 % (37.0-47.0); Hemoglobin 12.8 g/dL (12.0-15.0); Mean Corpuscular HGB Conc 33.1 g/dl (32-36); Mean Corpuscular Hemoglobin 32.0 pg (26-34); Mean Corpuscular Volume 96.8 fl (80-100); Platelet Count Result 357 k/mm3 (150-375); Red Blood Count 4.00 M/mm3 (4.2-5.4); White Blood Count 11.2 K/mm3 (4.5-10.0)
[2024-11-13 13:42] LABS: Alanine Aminotransferase 15 U/L (6-35); Albumin Level 3.8 g/dL (3.5-5.1); Alkaline Phosphatase 81 U/L (38-126); Anion Gap 5 mmol/L (4-12); Aspartate Amino Transferase 31 U/L (14-36); Bilirubin,Total 0.2 mg/dL (0.2-1.3); Blood Urea Nitrogen 10 mg/dL (7-17); Calcium 9.5 mg/dL (8.4-10.2); Carbon Dioxide 30 mmol/L (22-30); Chloride 98 mmol/L (98-107); Estimated CRCL calculation 59 ml/min; Estimated Glomerular Filt Rate > 60; Glucose 78 mg/dL (65-110); Magnesium 1.3 mg/dL (1.6-2.3); Potassium 3.7 mmol/L (3.4-5.0); Sodium 133 mmol/L (137-145); Total Protein 7.1 g/dL (6.3-8.2)
[2024-11-13 14:05] VITALS: BP 137/56; PULSE 68; RESP 16; TEMP 36.5; O2SAT 95
[2024-11-13 20:00] VITALS: PULSE 74; RESP 18; O2SAT 93
[2024-11-13 20:28] VITALS: BP 143/71; PULSE 74; RESP 18; TEMP 36.4; O2SAT 93
[2024-11-13] MEDS: HYDROcodone/acetaminophen (*CRX) 5-325 MG TABLET 1 TAB PO (21:33)
[2024-11-14 05:27] VITALS: BP 119/61; PULSE 64; RESP 16; TEMP 36.2; O2SAT 96
[2024-11-14 07:19] LABS: Hematocrit 35.6 % (37.0-47.0); Hemoglobin 11.9 g/dL (12.0-15.0); Mean Corpuscular HGB Conc 33.4 g/dl (32-36); Mean Corpuscular Hemoglobin 31.6 pg (26-34); Mean Corpuscular Volume 94.7 fl (80-100); Platelet Count Result 335 k/mm3 (150-375); Red Blood Count 3.76 M/mm3 (4.2-5.4); White Blood Count 8.3 K/mm3 (4.5-10.0)
[2024-11-14 07:38] LABS: Alanine Aminotransferase 10 U/L (6-35); Albumin Level 3.4 g/dL (3.5-5.1); Alkaline Phosphatase 62 U/L (38-126); Anion Gap 8 mmol/L (4-12); Aspartate Amino Transferase 23 U/L (14-36); Bilirubin,Total 0.3 mg/dL (0.2-1.3); Blood Urea Nitrogen 10 mg/dL (7-17); Calcium 9.7 mg/dL (8.4-10.2); Carbon Dioxide 27 mmol/L (22-30); Chloride 100 mmol/L (98-107); Estimated CRCL calculation 66 ml/min; Estimated Glomerular Filt Rate > 60; Glucose 85 mg/dL (65-110); Potassium 3.7 mmol/L (3.4-5.0); Sodium 135 mmol/L (137-145); Total Protein 6.5 g/dL (6.3-8.2)
[2024-11-14] MEDS: PANTOPRAZOLE 40 MG TABLET PO (08:35)
[2024-11-14] MEDS: FOLIC ACID 1 MG TABLET PO (08:35)
[2024-11-14 09:05] VITALS: PULSE 72; RESP 18
[2024-11-14] MEDS: FLUTICASONE/UMECLIDIN/VILANTER 100-62.5-25 MCG ELLIPTA 1 PUFF INHALATION (09:05)
--- NOTE | 2024-11-14 10:44 | P.PNGS_ITS ---
Progress Note: A&P Assessment and Plan (1) Colonic obstruction: Code(s): K56.609 - Unspecified intestinal obstruction, unspecified as to partial versus complete obstruction Status: Acute Assessment and Plan: * Improved with conservative management. Hypaque enema showed improvement in a distal sigmoid stricture. She has no obstructive symptoms. Having normal formed BMs and tolerating solids. * Okay to discharge home from a surgical standpoint with f/u in 1 week in our office with Dr. Ornelas. Plan I have discussed the patient's case and plan of care with Dr. Ornelas. Subjective Subjective Date/Time Seen: 11/14/24 10:44 Patient reports: no new complaints, tolerating a regular diet and bowel movement Interval history: No acute issues overnight. No abdominal pain, nausea, vomiting. Exam Const: General: comfortable and no acute distress GI: Inspection: non-distended GI Palp: Yes Soft to palpation, No Tenderness to palpation present (GI), No Guarding due to palpation present (GI) and No Rebound tenderness present Auscultation: normal bowel sounds Objective Data Vital Signs Vital Signs: Vital Signs - 24 hr 11/13/24 14:05 11/13/24 20:00 11/13/24 20:28 Temperature 97.7 F 97.6 F Pulse Rate 68 74 74 Respiratory Rate 16 18 18 Blood Pressure 137/56 L 143/71 H Pulse Oximetry 95 93 93 Oxygen Delivery Room Air 11/14/24 05:27 11/14/24 08:00 11/14/24 09:05 Temperature 97.1 F L Pulse Rate 64 72 Respiratory Rate 16 18 Blood Pressure 119/61 Pulse Oximetry 96 Oxygen Delivery Room Air Intake/Output Intake/Output: Intake & Output 11/11/24 11/12/24 11/13/24 11/14/24 23:59 23:59 23:59 23:59 Intake Total 1480 1030 1130 240 Balance 1480 1030 1130 240 Meds/Results Medications: Active Medications Generic Name Dose Route Start Last Admin Trade Name Freq PRN Reason Stop Dose Admin Acetaminophen 650 mg 11/01/24 17:53 Acetaminophen 325 Mg Tablet PO Q4H PRN Mild Pain (1-3) or Fever Hydrocodone Bitart/Acetaminophen 1 tab 11/01/24 17:53 11/13/24 21:33 Hydrocodone/Acetaminophen (*Crx) 5-325 Mg Tablet PO 1 tab Q4H PRN Administration Moderate Pain (4-6) Albuterol 2 puff 11/01/24 22:09 Albuterol Sulfate (*Sp) Aerosol 1 Puff INHALATION Q4-6H PRN shortness of breath or wheezing Amlodipine Besylate 5 mg 11/09/24 10:50 11/14/24 08:35 Amlodipine Besylate 5 Mg Tablet PO 5 mg DAILY BETTINA Administration Aspirin 81 mg 11/02/24 09:00 11/11/24 08:42 Aspirin 81 Mg Enteric Tablet PO 81 mg DAILY BETTINA Administration Enoxaparin Sodium 40 mg 11/02/24 09:00 11/11/24 10:46 Enoxaparin 40 Mg/0.4 Ml Syringe SUB-Q 40 mg DAILY BETTINA Administration Fluticasone/Umeclidinium/Vilanterol 1 puff 11/02/24 09:00 11/14/24 09:05 Fluticasone/Umeclidin/Vilanter 100-62.5-25 Mcg Ellipta INHALATION 1 puff DAILY BETTINA Administration Folic Acid 1 mg 11/02/24 09:00 11/14/24 08:35 Folic Acid 1 Mg Tablet PO 1 mg DAILY BETTINA Administration Hydralazine HCl 5 mg 11/04/24 15:16 11/05/24 20:16 Hydralazine Hcl 20 Mg/Ml Vial IV PUSH 5 mg Q8H PRN Administration Blood Pressure - High Ondansetron HCl 4 mg 11/01/24 18:05 11/07/24 05:13 Ondansetron Inj 4 Mg/2 Ml Vial IV PUSH 4 mg Q4H PRN Administration Nausea And Vomiting Pantoprazole Sodium 40 mg 11/08/24 17:05 11/14/24 08:35 Pantoprazole 40 Mg Tablet PO 40 mg QAM BETTINA Administration Phenol 1 spray 11/04/24 11:58 11/04/24 13:37 Phenol/Sod Pheno [place] Garcia (*Bkc) MUCOUS MEM 1 spray PRN PRN Administration Sore Throat Radiology Results: ITS Impressions Chest X-Ray 11/01/24 10:18 Impression: 1: Progression of spiculated right upper lobe mass with associated calcifications. Cannot exclude malignancy. Recommend further evaluation with CT- guided biopsy or pet/CT scan. Abdomen/Pelvis CT 11/01/24 10:37 IMPRESSION: Multiple loops of dilated, fluid-filled, featureless small bowel with segments of mural thickening within portions of the the colon (which demonstrate diverticulosis). This constellation of findings suggest a possible ileus, rather than a discrete bowel obstruction. No fat plane between the uterus and the thickened loop of distal sigmoid colon with presacral induration in the left hemipelvis. Chest CT 11/01/24 11:15 IMPRESSION: 1. Mild to moderate emphysema with persistent tree-in-bud opacities in the depen dent left lower lobe consistent with bronchiolitis. 2. No recent interval change in a 4.6 x 3.5 similar thick-walled centrally cavitary lesion at the right apex which is decreased in size and degree of wall thickening since 2022, likely scarring as sequela of chronic infection. Abdomen X-Ray 11/07/24 15:01 Impression: 1: Improved small bowel dilation compared with 11/03/2024, likely resolving ileus or partial obstruction. Barium Enema 11/08/24 12:44 IMPRESSION: 1. Contrast unable to be passage beyond a high-grade stricture in the distal sigmoid colon which could be due to inflammation or scarring related to reported recent colitis/diverticulitis but which also raises significant concern for malignancy. Could consider repeat single contrast water-soluble enema following sufficient time to allow for resolution of any potential contributing inflamm ation. Enema w/Water Soluble 11/13/24 13:17 IMPRESSION: 1. Limited single contrast enema terminated with only partial opacification of the sigmoid colon at patient request due to discomfort. 2. Interval improvement in a stricture in the distal sigmoid colon likely related to diverticulitis. Labs Labs: Laboratory Results - last 24 hr 11/13/24 11/14/24 13:06 06:53 WBC 11.2 H 8.3 RBC 4.00 L 3.76 L Hgb 12.8 11.9 L Hct 38.7 35.6 L MCV 96.8 94.7 MCH 32.0 31.6 MCHC 33.1 33.4 RDW 13.6 13.5 Plt Count 357 335 MPV 9.5 9.9 Sodium 133 L 135 L Potassium 3.7 3.7 Chloride 98 100 Carbon Dioxide 30 27 Anion Gap 5 8 BUN 10 D 10 Creatinine 0.66 L 0.58 L Estim Creat Clear Calc 59 66 Estimated GFR > 60 > 60 Glucose 78 85 Calcium 9.5 9.7 Magnesium 1.3 L Total Bilirubin 0.2 0.3 AST 31 23 ALT 15 10 Alkaline Phosphatase 81 62 Total Protein 7.1 6.5 Albumin 3.8 3.4 L
--- NOTE | 2024-11-14 13:42 | P.DS_ITS ---
DS: Admitting Diagnosis Discharge Date 11/14/2024 Admitting Diagnosis Abdominal pain DS: Discharge Diagnosis Discharge Diagnosis (1) Ileus: Code(s): K56.7 - Ileus, unspecified Status: Acute (2) GOYO (acute kidney injury): Code(s): N17.9 - Acute kidney failure, unspecified Status: Acute (3) Leukocytosis: Code(s): D72.829 - Elevated white blood cell count, unspecified Status: Acute (4) Reflux esophagitis: Code(s): K21.00 - Gastro-esophageal reflux disease with esophagitis, without bleeding Status: Acute (5) Colonic obstruction: Code(s): K56.609 - Unspecified intestinal obstruction, unspecified as to partial versus complete obstruction Status: Acute (6) Hypomagnesemia: Code(s): E83.42 - Hypomagnesemia Status: Resolved DS: Summary Hospital Course Hospital Course: 74-year-old female with history of hereditary hemochromatosis, cirrhosis, COPD, active nicotine abuse, prior alcohol use disorder, history of bowel resection, hypertension, nocturnal hypoxemia with 2 L nasal cannula at night followed by Dr. Jefferson presents to [facility] ER on 11/01/2024 with complaint of abdominal pain. She has been having loose bowel movements and nausea. She was just discharged from [facility] on 10/27/2024 with colitis, bowel obstruction, pneumonia, UTI. ER workup revealed leukocytosis, serum creatinine 1.25, contaminated urinalysis, CT abdomen pelvis reveals multiple loops of dilated fluid-filled featureless small bowel with segments of mural thickening within portions of the colon, suggestive of ileus. Chest CT demonstrating moderate emphysema with persistent tree-in-bud opacities in the dependent left lower lobe consistent with bronchiolitis. Chronic cavitary lesion at right apex peer She was given IV fluids and Zosyn. C diff was negative. ---- NG tube placed on 11/03/2024 for GI decompression. NG tube removed on 11/05/2024. Underwent sigmoidoscopy and endoscopy on 11/07/2024. EGD reveals a small hiatal hernia at the GE junction, reflux esophagitis grade A, normal stomach, and duodenum. Four biopsies taken from the antrum and body. Colonoscopy incomplete as there was severe angulation 35 cm above the anal verge that precluded any passage. Barium enema performed on 11/08/2024: Contrast unable to passed through the high-grade stricture in the distal sigmoid colon. General surgery consulted, anticipate surgical intervention soon. Discussed risks versus benefits of TPN and patient declines. He is tolerating diet. She had a bowel movement on 11/11/2024. Continue to encourage ambulation. Zosyn discontinued Blood and stool cultures 11/01/2024: No growth, final. Hyponatremia, sodium trending down. We will need to continue monitoring. Blood pressures were consistently elevated until amlodipine 5 mg p.o. q.a.m. was started on 11/09/2024. Continue to monitor. Hydralazine p.r.n. for SBP greater than 180. Hypo magnesium: Resolved status post replacement Leukocytosis: No bandemia identified. Patient is afebrile, no symptomatology to indicate infection. Continue to trend. Resolved on 11/11/2024 without intervention. Patient wishes to be full code. Low residue diet. Holding Lovenox 40 mg subQ q.a.m. on 11/12/2024 possible surgical intervention. 11/13: She can continue a solid diet with Ensure supplement for today. Depending on Hypaque enema results, surgery will switch her to a clear liquid diet and order a bowel prep tomorrow to prepare for surgery if she still has a significant stricture. 11/14: Discussed with surgery who agrees to discharge the patient and follow-up with surgery as an outpatient for further management.Patient has improved with conservative management. Hypaque enema showed improvement in a distal sigmoid stricture. She has no obstructive symptoms. Having normal formed BMs and tolerating solids. As per surgery recommendation patient will be discharged with levofloxacin for 5 days On the day of discharge, the patient was seen and examined. Vital signs were stable. Physical exam were stable and labs were reviewed at length. Discharge instructions, medications, and follow-up appointments were discussed with the patient at length and all day questions were answered. ER warnings were given. Status at Discharge Cognitive/behavioral status at discharge: Stable Time Spent with Patient Time attestation: Total time spent providing and/or coordinating discharge services: 45 minutes Exam Narrative: GENERAL: Pleasant, in no acute distress. Well-nourished. - EYES: EOMI. Anicteric. - HENT: Moist mucous membranes. - LUNGS: Clear to auscultation bilateral ly, no wheezing, rhonchi, or rales. - CARDIOVASCULAR: Regular rate and rhyth m. No murmur. No JVD. - ABDOMEN: Soft, non-tender and non-dist ended. No palpable masses. Hypoactive bowel sounds - EXTREMITIES: No edema. Peripheral puls es 2+. Non-tender. - NEUROLOGIC: No focal neurological defi cits. CN II-XII grossly intact. - PSYCHIATRIC: Awake, Alert and oriented x 3. Appropriate mood and affect. - SKIN: No rashes or lesions. Warm. - LYMPH: No cervical lymphadenopathy. Const: General: comfortable, no acute distress and average body habitus Nutritional Appearance: average body habitus Orientation/consciousness: patient oriented x3 Other: A&O x3 HENMT: Head: normal to inspection, normocephalic and atraumatic Ears: hearing grossly normal bilaterally Face/Nose/Sinus: Normal nares present Mouth: Yes moist mucous membranes Other: NGT in place Eyes: General: appearance normal, both eyes and all related structures Conjunctivae: conjunctivae normal Sclera: sclerae normal Pupils: Equal, round and reactive pupils present Neck: Neck: supple Chest: Chest palpation & inspection: normal inspection of the chest Resp: Effort & Inspection: normal respiratory effort Auscultation: clear to auscultation bilaterally Other: cough Cardio: Jugular venous distension: no JVD Rate: regular rate Rhythm: regular rhythm Heart sounds: S1 normal heart sound present and S2 normal heart sound present Peripheral pulses: Peripheral pulses 2+ throughout GI: Inspection: non-distended Auscultation: normal bowel sounds Rectal Exam: deferred Other: Slight distension, but soft. No tenderness to palpations. : General: Yes bladder normal to palpation Bimanual exam- vagina & uterus: bladder normal to palpation Skin: General skin exam: normal color and no rashes or lesions noted Neuro: General: patient oriented x3 Cranial nerves: Yes Equal, round and reactive pupils present Speech: normal speech Motor exam (neuro): 5/5 motor strength present throughout Extrem: General: no edema Psych: Appearance: grossly normal and well kempt Mental Status: mental status grossly normal Affect: normal affect Attitude: cooperative Insight: Good insight present (Psych) Judgement: Good judgement present (Psych) DS: Data Data Completed and Pending Completed studies during hospitalization: Pending at discharge 11/07/24 12:36 Surgical [PTH] Routine Labs on day of discharge: Labs from last 24 hours 11/14/24 11/13/24 06:53 13:06 WBC 8.3 RBC 3.76 L Hgb 11.9 L Hct 35.6 L MCV 94.7 MCH 31.6 MCHC 33.4 RDW 13.5 Plt Count 335 MPV 9.9 Sodium 135 L 133 L Potassium 3.7 3.7 Chloride 100 98 Carbon Dioxide 27 30 Anion Gap 8 5 BUN 10 10 D Creatinine 0.58 L 0.66 L Estim Creat Clear Calc 66 59 Estimated GFR > 60 > 60 Glucose 85 78 Calcium 9.7 9.5 Magnesium 1.3 L Total Bilirubin 0.3 0.2 AST 23 31 ALT 10 15 Alkaline Phosphatase 62 81 Total Protein 6.5 7.1 Albumin 3.4 L 3.8 Imaging Radiologist's impression: ITS Impressions Chest X-Ray 11/01/24 10:18 Impression: 1: Progression of spiculated right upper lobe mass with associated calcifications. Cannot exclude malignancy. Recommend further evaluation with CT- guided biopsy or pet/CT scan. Abdomen/Pelvis CT 11/01/24 10:37 IMPRESSION: Multiple loops of dilated, fluid-filled, featureless small bowel with segments of mural thickening within portions of the the colon (which demonstrate diverticulosis). This constellation of findings suggest a possible ileus, rather than a discrete bowel obstruction. No fat plane between the uterus and the thickened loop of distal sigmoid colon with presacral induration in the left hemipelvis. Chest CT 11/01/24 11:15 IMPRESSION: 1. Mild to moderate emphysema with persistent tree-in-bud opacities in the dependent left lower lobe consistent with bronchiolitis. 2. No recent interval change in a 4.6 x 3.5 similar thick-walled centrally cavitary lesion at the right apex which is decreased in size and degree of wall thickening since 2022, likely scarring as sequela of chronic infection. Abdomen X-Ray 11/03/24 14:01 IMPRESSION: 1. Persistent mildly dilated gas-filled loops of small bowel throughout the abdomen and pelvis which could represent small bowel obstruction or ileus. 2. Mild pulmonary edema in the lower lungs. Abdomen X-Ray 11/03/24 19:36 IMPRESSION: Shallow positioned NG tube, consider advancing 4 cm. Abdomen X-Ray 11/07/24 15:01 Impression: 1: Improved small bowel dilation compared with 11/03/2024, likely resolving ileus or partial obstruction. Barium Enema 11/08/24 12:44 IMPRESSION: 1. Contrast unable to be passage beyond a high-grade stricture in the distal sigmoid colon which could be due to inflammation or scarring related to reported recent colitis/diverticulitis but which also raises significant concern for malignancy. Could consider repeat single contrast water-soluble enema following sufficient time to allow for resolution of any potential contributing inflammation. Enema w/Water Soluble 11/13/24 13:17 IMPRESSION: 1. Limited single contrast enema terminated with only partial opacification of the sigmoid colon at patient request due to discomfort. 2. Interval improvement in a stricture in the distal sigmoid colon likely related to diverticulitis. Discharge Plan Discharge Attending physician on discharge: Buck Rowan Consulting providers: Andrew Barajas Discharging Clinician: Buck Rowan Anticipated Discharge Date/Time: 11/14/24 13:46 Patient Disposition: Home Activity: as tolerated Diet: as tolerated Discharge Instructions: * Follow-up with Dr. Ornelas in 1 week. Our office will call you with a time and date of the appointment. Call sooner with any surgical questions. [phone] * Please complete levofloxacin for 5 days * Started amlodipine in the hospital and continued. * Check the blood pressure and follow-up with PCP within a week upon discharge Patient Instructions: Antibiotic Form, Low Fiber Diet (DC) Patient Language: [place] Stand Alone Forms: General Discharge Information Follow-up/Referrals: Ivis Ornelas MD [Physician] - 1 Week Discharge Medications: New amlodipine [Norvasc] 5 mg Tablet 5 mg PO DAILY Qty: 15 0RF pantoprazole 40 mg Tablet,Delayed Release (Dr/Ec) 40 mg PO QAM Qty: 30 0RF levofloxacin 750 mg tablet 750 mg PO DAILY Qty: 5 0RF Continued folic acid 1 mg tablet 1 mg PO DAILY mecobalamin (vitamin B12) 500 mcg tablet,chewable 500 mcg PO DAILY albuterol sulfate 90 mcg/actuation HFA aerosol inhaler 1 - 2 inh inhalation Q4-6H PRN (Reason: shortness of breath or wheezing) Qty: 8.5 2RF Patient Comments: . aspirin 81 mg tablet,delayed release (DR/EC) 81 mg PO DAILY multivitamin [Daily Multi-Vitamin] Tablet 1 tablet PO DAILY Trelegy Ellipta 100-62.5-25 mcg blister with device 1 inh INHALATION DAILY Qty: 60 11RF Rx Instructions: rinse and spit Date of admission: 11/02/24 13:11 Primary Care Provider: Jarod Hernandez Admitting Provider: Jaki Seay Attending physician on admission: Jaki Seay Condition: Stable
== END 2024-11-14 14:05 | disposition home or self-care (01) | DRG 392 ==
LOC: ANHED 09:25 → ANH3MEDSUR 13:19
PROVIDERS: General Practice; Hospitalist; Internal Medicine Gastroenterology; Nurse Practitioner Gerontology; Student in an Organized Health Care Education/Training Program; Surgery; Admitting Provider Family Medicine; Emergency Provider Registered Nurse; PCP Family Medicine; Visit Provider General Practice
PROC: 0DJ08ZZ Inspection of Upper Intestinal Tract, Via Natural or Artificial Opening Endoscopic (ICD-10-PCS; CPT 45378; principal; 2024-11-07 12:30)
DX: K57.32 Diverticulitis of large intestine without perforation or abscess without bleeding (principal); E87.1 Hypo-osmolality and hyponatremia; N17.9 Acute kidney failure, unspecified; K52.9 Noninfective gastroenteritis and colitis, unspecified; E86.0 Dehydration; R09.02 Hypoxemia; K21.00 Gastro-esophageal reflux disease with esophagitis, without bleeding; K44.9 Diaphragmatic hernia without obstruction or gangrene; D72.829 Elevated white blood cell count, unspecified; K66.0 Peritoneal adhesions (postprocedural) (postinfection); E83.42 Hypomagnesemia; E87.6 Hypokalemia; E83.110 Hereditary hemochromatosis; J44.9 Chronic obstructive pulmonary disease, unspecified; J02.9 Acute pharyngitis, unspecified; I10 Essential (primary) hypertension; K76.0 Fatty (change of) liver, not elsewhere classified; K74.60 Unspecified cirrhosis of liver; F17.210 Nicotine dependence, cigarettes, uncomplicated; Z86.718 Personal history of other venous thrombosis and embolism; Z90.49 Acquired absence of other specified parts of digestive tract
CPT/HCPCS: 36415; 71046; 71250; 74018; 74019; 74176; 74270; 80048; 80053; 81001; 82948; 83605; 83690; 83735; 84100; 84466; 84484; 85025; 85027; 85610; 85730; 86140; 87040; 87045; 87046; 87427; 87493; 88305; 93005; 94640; 96361; 96365; 96375; 99285; A9270; G0378; J0360; J1650; J2270; J2405; J2543; J2704; J3475; J3480; J7030; J7040; J7120; J7121

== ENCOUNTER 2025-01-26 07:45 | Outpatient (CLI) | payer OTHER, SELFPAY ==
--- NOTE | ~2025-01-26 | US_ITS ---
ULTRASOUND ABDOMEN LIMITED (RIGHT UPPER QUADRANT) Clinical History: K74.60 - Unspecified cirrhosis of liver Comparison: CT abdomen pelvis 11/01/2024 Technique: Right upper quadrant sonography Findings: Liver: Enlarged. Echogenic. No intrahepatic biliary ductal dilatation. Normal hepatopedal flow main portal vein. Common Duct: Normal caliber. 4 mm. Gallbladder: No definite stones. Probable small polyp as before. No wall thickening. No pericholecystic fluid. Negative sonographic Leigh's sign per technologist report. Pancreas: Unremarkable. Right kidney: Unremarkable. Retrohepatic IVC: Unremarkable. IMPRESSION: 1. Hepatomegaly, with steatosis and/or hepatocellular disease. Reviewed, dictated and finalized at location R.
== END 2025-01-26 07:46 | disposition home or self-care (01) ==
PROVIDERS: PCP Family Medicine; Visit Provider Internal Medicine Gastroenterology
DX: E83.110 Hereditary hemochromatosis (principal)
CPT/HCPCS: 76705

== ENCOUNTER 2025-02-27 09:52 | Emergency (ER) | payer OTHER, SELFPAY ==
--- NOTE | ~2025-02-27 | XR_ITS ---
XR finger 2nd LT min 2V 02/27/2025 11:37 Indication: Left second finger pain Procedure: 4 views left second finger Comparison: No prior studies for comparison. Findings: There is a minimally displaced intra-articular fracture proximal aspect of the second distal phalanx. There is polyarticular osteoarthritis. Osteopenia. Mild soft tissue swelling adjacent to the fracture. No foreign bodies. Impression: 1: Minimally displaced intra-articular fracture proximal aspect of the left second distal phalanx Reviewed, dictated and finalized at [facility] Impression: 1: Minimally displaced intra-articular fracture proximal aspect of the left sec ond distal phalanx
[2025-02-27 10:02] VITALS: BP 163/66; PULSE 79; RESP 18; TEMP 36.7; O2SAT 96
--- OUTSIDE RECORDS SUMMARY | 2025-02-27 10:31 | XMS_ITS | Clinical Summary ---
Author Organization [facility] Address [address] [place] [address] Care Team Providers Care Roof Tiler Name Role Phone Jarod Hernandez MD Primary [...] Information Patient not taking.Reported on 08/30/2024 Waqas Ellipta 100-62.5-25 mcg inhaler 1 INHALED DAILY [...] Encounters Date Type Department Care Team Description 12/31/2024 Telephone [facility] Medicine Surgery [address] [place] [address] [address] [place] [id number] Marianna Quarles BS Scheduling Appointments (New patient referral in [facility] ) 12/27/2024 Telephone [facility] Medicine Surgery [address] [place] [address] [address] [place] [address] Marianna Quarles BS Medical Records Request (New patient referral, missing records ) from Last 3 Months Surgical History Surgery Date Site/Laterality Comments TUBAL LIGATION PLASTIC SURGERY left side of face Social History Tobacco Use Types Packs/Day Years Used Date Smoking Tobacco: Every Day Cigarettes Tobacco Cessation:Ready to Q uit: Not Asked; Counseling Given: Not Answered Comments Unknown Sex and Gender Information Value Date Recorded Sex Assigned at Not on file Legal Sex Female 2:18 PM 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
--- OUTSIDE RECORDS SUMMARY | 2025-02-27 10:31 | XMS_ITS | Clinical Summary ---
Author Organization [facility] [email or web address] Address [address] [place] [address] Care Team Providers Care Comparison Shopper Name Role Phone Jarod Hernandez MD Primary Care Provider [phone] Source Comments [facility] [email or web address],non-owned Affiliates and Associated Physician Practices is amultiple site organization consisting of ambulatory clinics and hospital sitesin [place], [place], [place] and [place]. This disclosure is being madepursuant to the Care Everywhere program and may not contain all information available regarding this patient. Last updated 17.[facility] [email or web address] Allergies Active Allergy Reactions Criticality Noted Date [...] on file Legal Sex Female 5:53 PM CAN OPERATOR Gender Identity Not on file Sexual Orientation Not on file Last Filed Vital Signs Vital Sign Reading Time Taken Comments Blood Pressure 103/76 05/31/2023 10:50 AM CAN OPERATOR Pulse 109 05/31/2023 10:50 AM CAN OPERATOR Temperature 36.7 C (98.1 F) 05/31/2023 10:50 AM CAN OPERATOR Respiratory Rate 14 11/18/2015 10:51 AM CDT Oxygen Saturation 89% 05/31/2023 10:50 AM CAN OPERATOR Inhaled Oxygen Concentration - - Weight 58.1 kg (128 lb) 05/31/2023 10:50 AM CAN OPERATOR Height 165.1 cm (5' 5) 05/31/2023 10:50 AM CAN OPERATOR Body Mass Index 21.3 05/31/2023 10:50 AM CAN OPERATOR Plan of Treatment Health Maintenance Due Date [...] 50+ (1 of 2 - PCV) 1970 Respiratory Syncytial Virus (RSV) Vaccine Pt: or over 60 yrs (1 - Risk 50-74 years 1-dose series) 2001 ZOSTER VACCINE (1 of 2) 2001 HEPATITIS B VACCINE (1 of 3 - Risk 3-dose series) 2011 DEPRESSION SCREENING 04/04/2024 COVID-19 VACCINE (1 - 2024-2 6 season) 2024 INFLUENZA VACCINE (#1) 2024 9, 01/04/2018 HIB [...] age to complete this topic Insurance [employer] SELF PAY NO INSURANCE Member Subscriber Plan / Payer (Ef fective for All Dates) Name:Jen Harrell Member ID:Not on file Relation to Subscriber:Not on file Name:JEN HARRELL Subscriber ID:Not on file (Home) Address: [place] [address] Payer ID:Not on file Group ID:Not on file Type:Self Pay Address: [place], [place] [employer] SELF PAY NO INSURANCE Member Subscriber Plan / Payer (Ef fective for All Dates) Name:Jen Harrell Member ID:Not on file Relation to Subscriber:Not on file Name:JEN HARRELL Subscriber ID:Not on file Address: [place] [address] Payer ID:Not on file Group ID:Not on file Type:Self Pay Address: [place], [place] Care Teams Comparison Shopper Relationship Specialty Start Date End Date Jarod Hernandez MD [address] [place] [address] PCP - General 07/25/15
--- OUTSIDE RECORDS SUMMARY | 2025-02-27 10:32 | XMS_ITS | Encounter Summary ---
Author Organization [facility] Address [facility] [place] [address] Care Team Providers Care Singing Telegram Performer Name Role Phone Jarod Hernandez MD Primary Care Provider Raymon Conway MD Unavailable [phone] Mari Guajardo PA-C Unavailable [phone] Encounter Details Date Type Department Care Team (Late st Contact Info) Description 06/27/2023 Hospital Follow-up Call [facility] [address] [place] [address] Cassandra Medina, RN Social History [...] the past 12 months has th e [employer], gas, oil, or water company threatened to [...] place to sleep or slept in a longterm (including now)? No 06/05/2023 Comments Unknown Sex and Gender Information Value Date Recorded Sex Assigned at Not on file Legal Sex Female 1:23 AM CDT Gender Identity Not on file Sexual Orientation Not on file documented as of this encounter Functional Status * Are you deaf or do you have serious difficulty hearing Answer Date of Assessment Author Status No 06/02/2023 9:30 PM FIRST LINE PRODUCTION SUPERVISOR Anita Chang, R N Active * Are you blind or do you have serious difficulty seeing, even when wearing glasses? Answer Date of Assessment Author Status No 06/02/2023 9:30 PM FIRST LINE PRODUCTION SUPERVISOR Anita Chang, R N Active * Do you have serious difficulty walking or climbing stairs? Answer Date of Assessment Author Status Yes 06/02/2023 9:30 PM FIRST LINE PRODUCTION SUPERVISOR Anita Chang, R N Active * Do you have difficulty dressing or bathing? Answer Date of Assessment Author Status Yes 06/02/2023 9:30 PM FIRST LINE PRODUCTION SUPERVISOR Anita Chang, R N Active * Because of a physical, mental, or emotional condition, do you have difficulty doing errands alone such as visiting a doctor's office or shopping? Answer Date of Assessment Author Status Yes 06/02/2023 9:30 PM FIRST LINE PRODUCTION SUPERVISOR Anita Chang, R N Active documented as of this encounter Mental Status * Because of a physical, mental, or emotional condition, do you have serious difficulty concentrating, remembering, or making decisions? Answer Entry Date Author Status No 06/02/2023 9:30 PM FIRST LINE PRODUCTION SUPERVISOR Anita Chang, R N Active documented in [...] on filedocumented in this encounter Care Teams Singing Telegram Performer Relationship Specialty Start Date End Date Jarod Hernandez MD [address] [place] [address] PCP - General FAMILY PRACTICE 06/03/23 Raymon Conway MD [address] [place] [address] Consulting Physician CLINICAL CARDIAC ELECTROPHYSIOLOGY 08/09/23 Mari Guajardo PA-C [address] [place] [address] Referring Physician PHYSICIAN GUEST HOUSE MANAGER 02/13/24 documented as of this encounter
--- OUTSIDE RECORDS SUMMARY | 2025-02-27 10:32 | XMS_ITS | Clinical Summary ---
Author Organization [facility] Administrative Offices Address [address] [place] [address] Care Team Providers Care High School Agriculture Teacher Name Role Phone Jarod Hernandez MD Primary Care Provider [phone] Allergies Active Allergy Reactions Criticality Noted Date Comments Iodine Rash Low 06/02/2023 Medications fluticasone-u meclidinium-v ilanterol (Trelegy Ellipta) 100-62.5-25 mcg Disk with Device Take 1 Puff by inhalation daily. Active albuterol sulfate HFA 90 mcg/actuation aerosol inhaler Take 2 Puffs by inhalation see administration instructions. 07/27/19 23 Active thiamine (Vitamin B-1) 100 mg tablet Take 100 mg by mouth daily. 03/04/20 23 Active folic acid (FOLVITE) 1 mg tablet TAKE 1 TABLET BY MOUTH EVERY DAY 90 Tablet 02/26/20 25 Active folic acid (FOLVITE) 1 mg tablet Take 1 Tablet (1 mg) by mouth daily. 90 Tablet 12/01/19 25 2024 Discontinued Active Problems No known active problems Encounters Date Type Department Care Team Description 02/25/2025 Refill [facility] Oncology and Hematology - [address] [place] [address] Zaki Leon MD 02/18/2025 Orders Only [facility] Oncology and Hematology - Kin [address] [place] [address] Zaki Leon MD Hereditary hemochromatosis 01/28/2025 Orders Only [facility] Oncology and Hematology - Kin [address] [place] [address] Zaki Leon MD Hereditary hemochromatosis 01/23/2025 External Device Data STL ABSTRACTION Provider, Abstract 01/22/2025 External Device Data STL ABSTRACTION Provider, Abstract 01/07/2025 Orders Only [facility] Oncology and Hematology - [place] [address] [place] [address] Zaki Leon MD Hereditary hemochromatosis 12/31/2024 3:45 PM CDT Office Visit [facility] Oncology and Hematology - [place] [address] [place] [address] Zaki Leon MD Hereditary hemochromatosis (Primary Dx) 12/25/2024 External Device Data STL ABSTRACTION Provider, Abstract 12/18/2024 External Device Data STL ABSTRACTION Provider, Abstract 12/18/2024 Orders Only [facility] Oncology and Hematology - Kin [address] [place] [address] Zaki Leon MD 12/17/2024 Orders Only [facility] Oncology and Hematology - Kin [address] [place] [address] Zaki Leon MD Hereditary hemochromatosis 11/30/2024 Refill [facility] Oncology and Hematology - Kin [address] [place] [address] Zaki Leon MD 11/29/2024 Orders Only [facility] Oncology and Hematology - Kin [address] [place] [address] Zaki Leon MD from Last 3 Months [...] Date Smoking Tobacco: Every Day Cigarettes 1 41.3 Started: 11/15/1983 Smokeless Tobacco: Never Tobacco Cessation:Ready to Q uit: No; Counseling Given: Not Answered Alcohol Use Standard [...] Sign Reading Time Taken Comments Blood Pressure 165/97 12/31/2024 3:36 PM CDT Pulse 97 08/29/2024 2:12 PM CDT Temperature 36.8 C (98.3 F) 12/31/2024 3:32 PM CDT Respiratory Rate 12 12/31/2024 3:32 PM CDT Oxygen Saturation 94% 12/31/2024 3:32 PM CDT Inhaled Oxygen Concentration - - Weight 62.3 kg (137 lb 6.4 oz) 08/29/2024 2:12 P M CDT Height 165.1 cm (5' 5) 11/15/2023 2:07 PM CDT Body Mass Index 22.86 11/15/2023 2:07 PM CDT Plan of Treatment Upcoming Encounters Date Type Department Care Team (Late st Contact Info) Description 07/01/2025 3:45 PM CDT Office Visit [facility] Oncology and Hematology [facility] [address] [facility] [address] [place] [address] Zaki Leon MD [address] [facility] [address] [place] [address] Health Maintenance Due Date Last Done Comments DTAP/TDAP/TD VACCINES (1 - Tdap) 1970 PNEUMOCOCCAL VACCINE 50+ YEARS (1 of 2 - PCV) 02/01/19 70 BREAST CANCER SCREENING 1991 COLORECTAL SCREENING 02/02/1996 Colorectal Cancer Screening 02/02/1996 FIT-DNA Q 3 years 02/02/1996 FIT/FOBT Q 1 year 02/02/1996 Flex Sig/CT Colonography Q 5 years 02/02/1996 Lung Cancer Screening 2001 RSV VACCINE (60+ or ) (1 - Risk 50-74 years 1-dose series) 2001 ZOSTER VACCINE (1 of 2) 2001 OSTEOPOROSIS SCREENING 02/02/2016 INFLUENZA VACCINE (#1) 2024 Procedures Procedure Name Priority Date/Time Associated Diagnosis Comments HOMOCYSTEINE Routine 12/17/2024 2:54 PM CDT IRON, TIBC, AND PERCENT SATURATION Routine 12/17/2024 1:53 PM CDT CBC WITH AUTODIFFERENTIAL Routine 2024 12:33 PM CDT IRON, TIBC, AND PERCENT SATURATION Routine 11/29/2024 2:56 PM CDT CBC WITH AUTODIFFERENTIAL Routine 2024 12:58 PM CDT from Last 3 Months Results * HOMOCYSTEINE (12/17/2024 2:54 PM CDT) Blood us Zaki Leon MD CHEMISTRY ORDERABLES Final Resu lt * IRON, TIBC, AND PERCENT SATURATION (12/17/2024 1:53 PM CDT) Only the most recent of2 resultswithin the time period is included. Blood us Zaki Leon MD CHEMISTRY ORDERABLES Final Resu lt * CBC WITH AUTODIFFERENTIAL (12/17/2024 12:33 PM CDT) Only the most recent of2 resultswithin the time period is included. Blood us Zaki Leon MD HEMATOLOGY ORDERABLES Final Res ult from Last 3 Months Insurance [facility] [employer] [facility] [employer] [employer] Care Teams High School Agriculture Teacher Relationship Specialty Start Date End Date Jarod Hernandez MD [address] [place] [address] PCP - General Family Practice 01/18/19
--- OUTSIDE RECORDS SUMMARY | 2025-02-27 10:32 | XMS_ITS | Clinical Summary ---
Author Organization [facility] Address [address] [place] [address] Care Team Providers Care Wood Inspector Name Role Phone Jarod Hernandez MD Primary Care Provider [phone] Raymon Conway MD Unavailable [phone] Mari Guajardo PA-C Unavailable [phone] [...] Atrial fibrillation with RVR 06/03/2023 Pneumonia 06/02/2023 Social History Tobacco Use [...] materials from doctor or pharmacy Never 07/19/2023 [facility] Utilities Answer Date Recorded In the past 12 months has [facility] [employer], [employer], or water [employer] threatened to shut off services in your [...] 03/02/2022 03/02/2012 COVID-19 Vaccine (3 - season) 2024 11/14/2020, 10/22/2020 Influenza Adult (#1) 2025 02/09/2022, 01/23/2021, 01/21/2020, Additional history exists RSV Immunization or 60+ Years (1 - 1-dose 75+ series) 2026 Pneumococcal Vaccine: 50+ Years Completed 12/15/2022, 03/22/2016, 12/22/2010 Hepatitis A Vaccines Aged Out No long er eligible based on patient's age to complete this topic Meningococcal B Vaccine Aged Out No l [...] Noemi Machado, RN Insurance MEDICARE PART A mobile mum OPEN ACCESS [facility] Advance Directives * Full Code (Latest Code Status on File) Date Activated Date Inactivated Comments 07/07/2023 7:48 AM * Full Code Date Activated Date Inactivated Comments 06/07/2023 7:45 AM 06/23/2023 7:20 PM Care Teams Wood Inspector Relationship Specialty Start Date End Date Jarod Hernandez MD [address] [place] [address] PCP - General FAMILY PRACTICE 06/03/23 Raymon Conway MD [address] [place] [address] Consulting Physician CLINICAL CARDIAC ELECTROPHYSIOLOGY 08/09/23 Mari Guajardo PA-C [address] [place] [address] Referring Physician PHYSICIAN ASSOCIATE EDITOR 02/13/24
--- OUTSIDE RECORDS SUMMARY | 2025-02-27 12:12 | XMS_ITS | Clinical Summary ---
Author Organization [facility] Address [address] [place] [address] Care Team Providers Care Pleat Taper Name Role Phone Jarod Hernandez MD Primary Care Provider [phone] Raymon Conway MD Unavailable [phone] Mari Guajardo PA-C Unavailable [phone] [...] Recorded In the past 12 months has [facility] [employer], [employer], or water [employer] threatened to shut off services in your [...] Noemi Machado, RN Insurance MEDICARE PART A [employer] OPEN ACCESS [facility] Advance Directives * Full Code (Latest Code Status on File) Date Activated Date Inactivated Comments 07/07/2023 7:48 AM * Full Code Date Activated Date Inactivated Comments 06/07/2023 7:45 AM 06/23/2023 7:20 PM Care Teams Pleat Taper Relationship Specialty Start Date End Date Jarod Hernandez MD [address] [place] [address] PCP - General FAMILY PRACTICE 06/03/23 Raymon Conway MD [address] [place] [address] Consulting Physician CLINICAL CARDIAC ELECTROPHYSIOLOGY 08/09/23 Mari Guajardo PA-C [address] [place] [address] Referring Physician PHYSICIAN EPIC RADIANT ANALYST 02/13/24
--- OUTSIDE RECORDS SUMMARY | 2025-02-27 12:12 | XMS_ITS | Clinical Summary ---
Author Organization [facility] Address [address] [facility] [place] [address] Care Team Providers Care V Block Saw Operator Name Role Phone Jarod Hernandez MD Primary Care Provider [phone] Source Comments [facility],non-owned Affiliates and Associated Physician Practices is amultiple site organization consisting of ambulatory clinics and hospital sitesin [place], [place], [place] and [place]. This disclosure is being madepursuant to the Care Everywhere program and may not contain all information available regarding this patient. Last updated 17.[facility] Allergies Active Allergy Reactions Criticality Noted Date [...] on file Legal Sex Female 5:53 PM NUT SHELLER Gender Identity Not on file Sexual Orientation Not on file Last Filed Vital Signs Vital Sign Reading Time Taken Comments Blood Pressure 103/76 05/31/2023 10:50 AM NUT SHELLER Pulse 109 05/31/2023 10:50 AM NUT SHELLER Temperature 36.7 C (98.1 F) 05/31/2023 10:50 AM NUT SHELLER Respiratory Rate 14 11/18/2015 10:51 AM CDT Oxygen Saturation 89% 05/31/2023 10:50 AM NUT SHELLER Inhaled Oxygen Concentration - - Weight 58.1 kg (128 lb) 05/31/2023 10:50 AM NUT SHELLER Height 165.1 cm (5' 5) 05/31/2023 10:50 AM NUT SHELLER Body Mass Index 21.3 05/31/2023 10:50 AM NUT SHELLER Plan of Treatment Health Maintenance Due Date [...] complete this topic Insurance [employer] [facility] [facility] Address: [address] [place] [address] MEDICARE SELF PAY NO INSURANCE Member Subscriber Plan / Payer (Ef fective for All Dates) Name:Jen Harrell Member ID:Not on file Relation to Subscriber:Not on file Name:JEN HARRELL Subscriber ID:Not on file (Home) Address: [place] [address] Payer ID:Not on file Group ID:Not on file Type:Self Pay Address: [place], [place] [employer] SELF PAY NO INSURANCE Member Subscriber Plan / Payer (Ef fective for All Dates) Name:Jen Harrell Member ID:Not on file Relation to Subscriber:Not on file Name:JEN HARRELL Subscriber ID:Not on file Address: [place] [address] Payer ID:Not on file Group ID:Not on file Type:Self Pay Address: [place], [place] Care Teams V Block Saw Operator Relationship Specialty Start Date End Date Jarod Hernandez MD [address] [place] [address] PCP - General 07/25/15
--- OUTSIDE RECORDS SUMMARY | 2025-02-27 12:12 | XMS_ITS | Clinical Summary ---
Author Organization [facility] Office Center Address [address] [place] [address] Care Team Providers Care Model Maker Name Role Phone Jarod Hernandez MD Primary [...] Type Department Care Team Description 12/31/2024 Telephone [facility] Medicine Surgery [address] [place] [address] [address] [place] [phone] Marianna Quarles BS Scheduling Appointments (New patient referral [facility] ) 12/27/2024 Telephone [facility] Medicine Surgery [address] [place] [address] [address] [place] [address] Marianna Quarles BS Medical Records [...] on file Legal Sex Female 2:18 PM MAMMA LOGIST Gender Identity Not on file Sexual Orientation [...] vaccine 65+ Completed 023, 03/22/2016, 12/22/2010 Insurance [facility] [id number] [facility] [id number] Care Teams Model Maker Relationship Specialty Start Date End Date Jarod Hernandez MD [address] [place] [address] PCP - General Family Medicine 03/20/24
--- OUTSIDE RECORDS SUMMARY | 2025-02-27 12:12 | XMS_ITS | Encounter Summary ---
Author Organization [facility] Address [facility] [place] [address] Care Team Providers Care Chicken And Fish Cleaner Name Role Phone Jarod Hernandez MD Primary Care Provider [phone] Raymon Conway MD Unavailable [phone] Mari Guajardo PA-C Unavailable [phone] Encounter Details Date Type Department Care Team (Late st Contact Info) Description 06/27/2023 Hospital Follow-up Call [facility] Cardiovascular Care Unit [address] [place] [address] Cassandra Medina, RN Social History [...] the past 12 months has th e [employer], gas, oil, or water company threatened to [...] to sleep or slept in a senior care (including now)? No 06/05/2023 Comments Unknown Sex and Gender Information Value Date Recorded Sex Assigned at Not on file Legal Sex Female 1:23 AM CDT Gender Identity Not on file Sexual Orientation Not on file documented as of this encounter Functional Status * Are you deaf or do you have serious difficulty hearing Answer Date of Assessment Author Status No 06/02/2023 9:30 PM HYDRAULIC MINER BLASTING Anita Chang, R N Active * Are you blind or do you have serious difficulty seeing, even when wearing glasses? Answer Date of Assessment Author Status No 06/02/2023 9:30 PM HYDRAULIC MINER BLASTING Anita Chang, R N Active * Do you have serious difficulty walking or climbing stairs? Answer Date of Assessment Author Status Yes 06/02/2023 9:30 PM HYDRAULIC MINER BLASTING Anita Chang, R N Active * Do you have difficulty dressing or bathing? Answer Date of Assessment Author Status Yes 06/02/2023 9:30 PM HYDRAULIC MINER BLASTING Anita Chang, R N Active * Because of a physical, mental, or emotional condition, do you have difficulty doing errands alone such as visiting a doctor's office or shopping? Answer Date of Assessment Author Status Yes 06/02/2023 9:30 PM HYDRAULIC MINER BLASTING Anita Chang, R N Active documented as of this encounter Mental Status * Because of a physical, mental, or emotional condition, do you have serious difficulty concentrating, remembering, or making decisions? Answer Entry Date Author Status No 06/02/2023 9:30 PM HYDRAULIC MINER BLASTING Anita Chang, R N Active documented in [...] on filedocumented in this encounter Care Teams Chicken And Fish Cleaner Relationship Specialty Start Date End Date Jarod Hernandez MD [address] [place] [address] PCP - General FAMILY PRACTICE 06/03/23 Raymon Conway MD [address] [place] [address] Consulting Physician CLINICAL CARDIAC ELECTROPHYSIOLOGY 08/09/23 Mari Guajardo PA-C [address] [place] [address] Referring Physician PHYSICIAN RECEPTIONIST NURSE 02/13/24 documented as of this encounter
--- OUTSIDE RECORDS SUMMARY | 2025-02-27 12:12 | XMS_ITS | Clinical Summary ---
Author Organization [facility] Administrative Offices Address [address] [place] [address] Care Team Providers Care Technical Recruiter Name Role Phone Jarod Hernandez MD Primary Care Provider [phone] Allergies Active Allergy Reactions Criticality Noted Date [...] Type Department Care Team Description 02/25/2025 Refill [facility] Oncology and Hematology - Kin [address] [place] [address] Zaki Leon MD 02/18/2025 Orders Only [facility] Oncology and Hematology - Kin [address] [place] [address] Zaki Leon MD Hereditary hemochromatosis 01/28/2025 Orders Only [facility] Oncology and Hematology - Kin [address] [place] [address] Zaki Leon MD Hereditary hemochromatosis 01/23/2025 External Device Data STL ABSTRACTION Provider, Abstract 01/22/2025 External Device Data STL ABSTRACTION Provider, Abstract 01/07/2025 Orders Only [facility] Oncology and Hematology - Kin [address] [place] [address] Zaki Leon MD Hereditary hemochromatosis 12/31/2024 3:45 PM CDT Office Visit [facility] Oncology and Hematology - Kin [address] [place] [address] Zaki Leon MD Hereditary hemochromatosis (Primary Dx) 12/25/2024 External Device Data STL ABSTRACTION Provider, Abstract 12/18/2024 External Device Data STL ABSTRACTION Provider, Abstract 12/18/2024 Orders Only [facility] Oncology and Hematology - Kin [address] [place] [address] Zaki Leon MD 12/17/2024 Orders Only [facility] Oncology and Hematology - Kin [address] [place] [address] Zaki Leon MD Hereditary hemochromatosis 11/30/2024 Refill [facility] Oncology and Hematology - Kin [address] [place] [address] Zaki Leon MD 11/29/2024 Orders Only [facility] Oncology and Hematology - Kin [address] [place] [address] Zaki Leon MD from Last 3 Months [...] Description 07/01/2025 3:45 PM CDT Office Visit [facility] Oncology and Hematology [facility] [address] [facility] [address] [place] [address] Zaki Leon MD [address] [facility] [address] [place] [address] Health Maintenance Due Date Last [...] Res ult from Last 3 Months Insurance [facility] [employer] [employer] Care Teams Technical Recruiter Relationship Specialty Start Date End Date Jarod Hernandez MD [address] [place] [address] PCP - General Family Practice 01/18/19
[2025-02-27] MEDS: LIDOCAINE 1% LOCAL INJ 10 ML VIAL 30 ML INFILTRATE (12:45)
[2025-02-27] MEDS: ACETAMINOPHEN 500 MG TABLET 1000 MG PO (12:45)
--- NOTE | 2025-02-27 13:30 | ED.WOUNDLAC ---
HPI - Wound/Laceration General Chief Complaint: Wound/Laceration <Amarilis Snyder MD - Last Filed: 02/27/25 14:41> Stated Complaint: left index finger injury, lac <Amarilis Snyder MD - Last Filed: 02/27/25 14:41> Time Seen by Provider: 02/27/25 11:26 <Amarilis Snyder MD - Last Filed: 02/27/25 14:41> History of Present Illness HPI narrative: 75-year-old female presenting with a distal 2nd digit laceration after shutting her hand in a door. Reports bleeding initially, now controlled, with mild pain. Denies numbness/tingling or any loss of function to the finger. Last tetanus unknown. <FREDY Luna - Last Filed: 02/27/25 18:39> Related Data Home Medications: Home Medications ?Medication ?Instructions ?Recorded ?Confirmed ?Last Taken ?Type aspirin 81 mg tablet,delayed 81 mg PO DAILY 05/16/24 12/17/24 Unknown History release folic acid 1 mg tablet 1 mg PO DAILY 06/14/24 12/17/24 Unknown History mecobalamin (vitamin B12) 500 mcg 500 mcg PO DAILY 06/14/24 12/17/24 Unknown History chewable tablet multivitamin (Daily Multi-Vitamin 1 tablet PO DAILY 10/22/24 12/17/24 Unknown History tablet) amoxicillin 500 mg capsule 500 mg PO Q8H 12/17/24 12/17/24 Unknown History <Amarilis Snyder MD - Last Filed: 02/27/25 14:41> Allergies/Adverse Reactions: Allergies Allergy/AdvReac Type Severity Reaction Status Date / Time mercury (elemental) Allergy Unknown Verified 02/27/25 09:53 Iodine and Iodide Containing AdvReac Rash Verified 02/27/25 09:53 Produc <Amarilis Snyder MD - Last Filed: 02/27/25 14:41> Review of Systems Review of Systems: All systems reviewed & are unremarkable except as noted in HPI and below <FREDY Luna - Last Filed: 02/27/25 18:39> PMFSH Past Medical History Medical History: Medical History (Updated 02/27/25 @ 13:31 by FREDY Luna) History of diverticulitis of colon Hypertension DVT (deep venous thrombosis) 2023 Hemochromatosis Alcohol use Patient reports that she quit drinking alcohol in 2022 Cirrhosis Family history of colon cancer in father Gastritis and duodenitis Elevated ferritin Fatty liver History of bruising easily Family hx of colon cancer COPD (chronic obstructive pulmonary disease) <Amarilis Snyder MD - Last Filed: 02/27/25 14:41> Surgical History Surgical History: Surgical History History of tooth extraction H/O colonoscopy with polypectomy H/O tubal ligation S/P tonsillectomy History of colon surgery cecum History of appendectomy <Amarilis Snyder MD - Last Filed: 02/27/25 14:41> Family History Family History: Family History Father Colon cancer Mother Heart failure <Amarilis Snyder MD - Last Filed: 02/27/25 14:41> Social History Social History: Social History (Updated 11/21/24 @ 09:24 by Katherine Kline CMA) Social History: 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 She lives with a roommate. She is and has 4 children. She has smoked 1-1.5 packs of cigarettes per day since she was a teenager. She used to drink 4-5 alcoholic beverages a day but quit drinking approximately 2022. code status full code Smoking packs per day: 1 Smoking cigarettes per day: 20.0 Years smoked: 60 Smoking pack-years: 60.00 Smoking status: Current every day smoker Tobacco type: cigarettes Second hand tobacco smoke exposure: No Alcohol intake: former Drinks per week: 0 Alcohol use details: 5 shots per day Substance use: never Substance use type: does not use Lack of Transportation: No Lack of Food: Never True Current Housing: I Have Housing Concerned About Future Housing: No Difficulty Paying Gas/Electric Bills: No Difficulty Paying for Meds: No Currently Unemployed: No Education: High School Diploma/GED Difficulty w/ Childcare or Family Care: No Living arrangements: alone Occupation/Education: occupation 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 HEAD: Normocephalic, atraumatic. EYES: PERRLA and EOMI. ENT: Nares clear, no rhinorrhea or epistaxis. Mucous membranes moist. Oropharynx without tonsillar hypertrophy exudate or other lesions. Bilateral TMs pearly augustine non-bulging NECK: Supple. No adenopathy or masses. No carotid bruits or JVD CHEST: Clear to auscultation. No respiratory distress. No wheezes rales or rhonchi HEART: Regular rate and rhythm. No murmur heard. Normal peripheral pulses. ABDOMEN: Soft, nontender, nondistended, normal active bowel sounds. EXTREMITIES: Normal range of motion. No edema. 4 cm laceration to distal dorsal surface left 2nd digit that does not involve the nail bed. Ecchymosis to distal finger pad. 5/5 strength and maintains ROM. SKIN: Warm, dry, no rash. NEURO: No focal deficits. Alert and oriented x3. PSYCH: Normal mood and affect <FREDY Luna - Last Filed: 02/27/25 18:39> Course Vital Signs Vital signs: Vital Signs Temperature 98.0 F 02/27/25 10:02 Pulse Rate 79 02/27/25 10:02 Respiratory Rate 18 02/27/25 10:02 Blood Pressure 163/66 H 02/27/25 10:02 Pulse Oximetry 96 02/27/25 10:02 Oxygen Delivery Room Air 02/27/25 10:02 Temperature 98.0 F 02/27/25 10:02 Pulse Rate 68 02/27/25 14:09 Respiratory Rate 18 02/27/25 14:09 Blood Pressure 147/78 H 02/27/25 14:09 Pulse Oximetry 96 02/27/25 14:09 Oxygen Delivery Room Air 02/27/25 10:02 <Amarilis Snyder MD - Last Filed: 02/27/25 14:41> Vital Signs Temperature 98.0 F 02/27/25 10:02 Pulse Rate 79 02/27/25 10:02 Respiratory Rate 18 02/27/25 10:02 Blood Pressure 163/66 H 02/27/25 10:02 Pulse Oximetry 96 02/27/25 10:02 Oxygen Delivery Room Air 02/27/25 10:02 Temperature 98.0 F 02/27/25 10:02 Pulse Rate 68 02/27/25 14:09 Respiratory Rate 18 02/27/25 14:09 Blood Pressure 147/78 H 02/27/25 14:09 Pulse Oximetry 96 02/27/25 14:09 Oxygen Delivery Room Air 02/27/25 10:02 <FREDY Luna - Last Filed: 02/27/25 18:39> Procedures Laceration Laceration 1: Date: 02/27/25 <Amarilis Snyder MD - Last Filed: 02/27/25 14:41> Time: 13:31 <Amarilis Snyder MD - Last Filed: 02/27/25 14:41> Site: hand <Amarilis Snyder MD - Last Filed: 02/27/25 14:41> Side (If applicable): left <Amarilis Snyder MD - Last Filed: 02/27/25 14:41> Size (cm): 3 <Amarilis Snyder MD - Last Filed: 02/27/25 14:41> Description: linear <Amarilis Snyder MD - Last Filed: 02/27/25 14:41> Depth: simple, single layer <Amarilis Snyder MD - Last Filed: 02/27/25 14:41> Local Anesthetic: lidocaine 1% <Amarilis Snyder MD - Last Filed: 02/27/25 14:41> Amount of anesthesia used (mL): 3 <Amarilis Snyder MD - Last Filed: 02/27/25 14:41> Pre-repair: wound explored, irrigated, irrigated extensively and deep structures intact <Amarilis Snyder MD - Last Filed: 02/27/25 14:41> ====== Skin Level ======: Skin layer closed with: nylon <Amarilis Snyder MD - Last Filed: 02/27/25 14:41> Size (cm): 4-0 <Amarilis Snyder MD - Last Filed: 02/27/25 14:41> Number of sutures: 5 <Amarilis Snyder MD - Last Filed: 02/27/25 14:41> Technique: simple, interrupted <Amarilis Snyder MD - Last Filed: 02/27/25 14:41> ====== Subcutaneous Layer ======: ====== Muscle Layer ======: ====== Tendon Layer ======: Nerve Block Nerve Block 1: Nerve block date: 02/27/25 <Amarilis Snyder MD - Last Filed: 02/27/25 14:41> Nerve block time: 13:32 <Amarilis Snyder MD - Last Filed: 02/27/25 14:41> Local Anesthetic: lidocaine 1% and with epi <Amarilis Snyder MD - Last Filed: 02/27/25 14:41> Amount of anesthesia used (mL): 3 <Amarilis Snyder MD - Last Filed: 02/27/25 14:41> Side: left <Amarilis Snyder MD - Last Filed: 02/27/25 14:41> Nerve Blocks: digital <Amarilis Snyder MD - Last Filed: 02/27/25 14:41> Procedure Successful: Yes <Amarilis Snyder MD - Last Filed: 02/27/25 14:41> Patient Tolerated Procedure: well and no complications <Amarilis Snyder MD - Last Filed: 02/27/25 14:41> MDM - Wound/Laceration MDM Narrative Medical decision making narrative: 75-year-old female presenting with a distal 2nd digit laceration after shutting her hand in a door. Reports bleeding initially, now controlled, with mild pain. Denies numbness/tingling or any loss of function to the finger. Last tetanus unknown. Patient has about a 4 cm laceration to distal dorsal surface left 2nd digit that does not involve the nail bed. Neurovascular intact and maintains good strength/ROM. Imaging demonstrates a minimally displaced intra-articular fracture proximal aspect of the left second distal phalanx. Laceration repaired. Verbal consent was obtained prior to the procedure. The wound was cleaned with normal saline. Lidocaine 1% without epinephrine was used for anesthesia. Wound was explored and no foreign body was seen. The wound was then closed with 5 4-0 nylon sutures in simple interrupted fashion. A sterile dressing was applied following the procedure. Patient tolerated the procedure well. Patient was also given a metal finger splint and a tetanus shot. Patient's workup and management plan reviewed with on-call plastics provider Dr. Menendez who agrees with plan. Patient cleared for outpatient follow-up with him next week. Patient agrees with discussion and plan of care. All questions were answered to the patient's satisfaction. Given reasons to return. <Amarilis Snyder MD - Last Filed: 02/27/25 14:41> 75-year-old female presenting with a distal 2nd digit laceration after shutting her hand in a door. Reports bleeding initially, now controlled, with mild pain. Denies numbness/tingling or any loss of function to the finger. Last tetanus unknown. Patient has about a 4 cm laceration to distal dorsal surface left 2nd digit that does not involve the nail bed. Neurovascular intact and maintains good strength/ROM. Imaging demonstrates a minimally displaced intra-articular fracture proximal aspect of the left second distal phalanx. Laceration repaired. Verbal consent was obtained prior to the procedure. The wound was cleaned with normal saline. Lidocaine 1% without epinephrine was used for anesthesia. Wound was explored and no foreign body was seen. The wound was then closed with 5 4-0 nylon sutures in simple interrupted fashion. A sterile dressing was applied following the procedure. Patient tolerated the procedure well. Patient was also given a metal finger splint and a tetanus shot. Patient's workup and management plan reviewed with on-call plastics provider Dr. Menendez who agrees with plan. Patient cleared for outpatient follow-up with him next week. Discharging home with a course of Keflex. Patient agrees with discussion and plan of care. All questions were answered to the patient's satisfaction. Given reasons to return. <FREDY Luna - Last Filed: 02/27/25 18:39> Medical Records Attestation: I reviewed the patient's medical records. <FREDY Luna - Last Filed: 02/27/25 18:39> Imaging Data Attestation: I personally reviewed and interpreted this imaging study as follows: <FREDY Luna - Last Filed: 02/27/25 18:39> Radiologist's impression: ITS Impressions Finger X-Ray 02/27/25 12:08 Impression: 1: Minimally displaced intra-articular fracture proximal aspect of the left second distal phalanx <FREDY Luna - Last Filed: 02/27/25 18:39> Discharge Plan Discharge Clinical Impression: Finger laceration <Amarilis Snyder MD - Last Filed: 02/27/25 14:41> Patient Disposition: Home <Amarilis Snyder MD - Last Filed: 02/27/25 14:41> Condition: Stable <Amarilis Snyder MD - Last Filed: 02/27/25 14:41> Instructions: Antibiotic Form, Care For Your Stitches (ED) <Amarilis Snyder MD - Last Filed: 02/27/25 14:41> Additional Instructions: You had 5 stitches that will need to be removed in 7-10 days. You have a broken finger you will need to follow up with the hand surgeon. Take the antibiotics as prescribed and come back for any further issues. <Amarilis Snyder MD - Last Filed: 02/27/25 14:41> Patient Language: American <Amarilis Snyder MD - Last Filed: 02/27/25 14:41> Prescriptions: New cephalexin 500 mg tablet 500 mg PO Q6H Qty: 28 0RF No Action folic acid 1 mg tablet 1 mg PO DAILY mecobalamin (vitamin B12) 500 mcg tablet,chewable 500 mcg PO DAILY albuterol sulfate 90 mcg/actuation HFA aerosol inhaler 1 - 2 inh inhalation Q4-6H PRN (Reason: shortness of breath or wheezing) Qty: 8.5 2RF Patient Comments: . aspirin 81 mg tablet,delayed release (DR/EC) 81 mg PO DAILY amoxicillin 500 mg capsule 500 mg PO Q8H ipratropium bromide 42 mcg (0.06 %) spray,non-aerosol 2 spray intranasal TID 30 Days Qty: 15 5RF Rx Instructions: administer into each nostril nicotine 21-14-7 mg/24 hr patch, TD daily, sequential See Rx Instructions transdermal .COMPLEX 60 Days Qty: 56 1RF Rx Instructions: apply 1-21 mg NICOTINE PATCH daily for 28 days; follow with 1-14 mg PATCH daily for 14 days, then 1-7mg PATCH daily for 14 days transdermal multivitamin [Daily Multi-Vitamin] Tablet 1 tablet PO DAILY Trelegy Ellipta 100-62.5-25 mcg blister with device 1 inh INHALATION DAILY Qty: 60 11RF Rx Instructions: rinse and spit <Amarilis Snyder MD - Last Filed: 02/27/25 14:41> Follow-up/Referrals: Jerri Menendez MD [Physician, Plastic Surgery] Jarod Hernandez MD [Primary Care Provider, Internal Medicine] <Amarilis Snyder MD - Last Filed: 02/27/25 14:41>
[2025-02-27] MEDS: CEPHALEXIN 500 MG CAPSULE PO (13:45)
[2025-02-27] MEDS: TETANUS,DIPHTHERIA,AC PERTUSSIS ADULT (0.5 ML) BOOSTRIX IM (13:49)
[2025-02-27 14:09] VITALS: BP 147/78; PULSE 68; RESP 18; O2SAT 96
== END 2025-02-27 14:11 | disposition home or self-care (01) ==
PROVIDERS: PCP Family Medicine
DX: S61.211A Laceration without foreign body of left index finger without damage to nail, initial encounter (principal); S62.631A Displaced fracture of distal phalanx of left index finger, initial encounter for closed fracture; Z23 Encounter for immunization; I10 Essential (primary) hypertension; J44.9 Chronic obstructive pulmonary disease, unspecified; K74.60 Unspecified cirrhosis of liver; F17.210 Nicotine dependence, cigarettes, uncomplicated; Z86.718 Personal history of other venous thrombosis and embolism; Z86.0100 Personal history of colon polyps, unspecified; W23.0XXA Caught, crushed, jammed, or pinched between moving objects, initial encounter
CPT/HCPCS: 12002; 29130; 73140; 90471; 90715; 99283; 99284; A9270; J2003